=== PATIENT | male | born 1950 | race Caucasian/White ===

== ENCOUNTER → 2019-09-01 00:01 | Outpatient (RCR) | payer OTHER, SELFPAY | LOC: WOUND 08-04 08:59 | PROVIDERS: Family Provider Internal Medicine; Visit Provider Thoracic Surgery (Cardiothoracic Vascular Surgery) | DX: T81.31XA Disruption of external operation (surgical) wound, not elsewhere classified, initial encounter (principal); Y83.8 Other surgical procedures as the cause of abnormal reaction of the patient, or of later complication, without mention of misadventure at the time of the procedure | CPT/HCPCS: 11042 ×5 ==

== ENCOUNTER 2019-09-03 13:25 | Outpatient (CLI) | payer OTHER, SELFPAY | END 2019-09-03 13:26 | disposition home or self-care (01) | LOC: RAD 13:26 | PROVIDERS: Family Provider Internal Medicine; PCP Internal Medicine; Visit Provider Internal Medicine Nephrology | DX: N18.3 Chronic kidney disease, stage 3 (moderate) (principal); N28.1 Cyst of kidney, acquired ==

== ENCOUNTER 2019-09-03 13:35 | Outpatient (CLI) | payer OTHER, SELFPAY ==
--- NOTE | 2019-09-03 | US_ITS ---
WS: [id number] ULTRASOUND RENAL TECHNIQUE: Ultrasound examination of both kidneys. CLINICAL INFORMATION: CKD3 COMPARISON: None. FINDINGS: RIGHT: Right kidney is normal in size and appearance. Echogenicity: Normal. Cortical thickness: 1.1 cm; Normal. Hydronephrosis: None. Perinephric fluid: None. Right kidney measures: 12.0 cm x 5.2 cm x 5.4 cm. LEFT: Left kidney is normal in size and appearance. Echogenicity: Normal. Cortical thickness: 1.5 cm; Normal. Hydronephrosis: None. Perinephric fluid: None. Left kidney measures: 12.7 cm x 5.3 cm x 7.0 cm. Left renal cyst measuring 1.5 cm. Normal visualized aorta. Mild bladder wall thickening can be seen with chronic cystitis or bladder ou tlet obstruction. US/US renal BI* [id number] IMPRESSION: 1. No hydronephrosis in either kidney. 2. Mild bladder wall thickening. 3. Left renal cyst 1.5 cm
--- NOTE | 2019-09-03 | XR_ITS ---
WS: [id number] Sternum, 2 views, 09/03/2019 Clinical Data: PAIN REDNESS Comparison: PA and lateral chest, 06/04/2019. Findings: Midline sternotomy sutures are seen. The most inferior sternal suture has broken. No bone destruction or erosion is seen of the sternum. The sternoclavicular joints appear to be intact. XR/XR sternum min 2V [id number] Impression: 1. Midline sternotomy sutures are intact except the most inferior one has broke n. 2. The sternum shows no erosion or destruction.
== END 2019-09-03 13:36 | disposition home or self-care (01) ==
LOC: RAD 13:36
PROVIDERS: Family Provider Internal Medicine; PCP Internal Medicine; Visit Provider Thoracic Surgery (Cardiothoracic Vascular Surgery)
DX: N18.3 Chronic kidney disease, stage 3 (moderate) (principal); N28.1 Cyst of kidney, acquired
CPT/HCPCS: 71120; 76770

== ENCOUNTER 2019-09-15 14:10 | Outpatient (RCR) | payer OTHER, SELFPAY | END 2019-10-02 23:59 | disposition home or self-care (01) | LOC: WOUND 14:10 | PROVIDERS: Family Provider Internal Medicine; PCP Internal Medicine; Visit Provider Thoracic Surgery (Cardiothoracic Vascular Surgery) | DX: T81.31XA Disruption of external operation (surgical) wound, not elsewhere classified, initial encounter (principal); Y83.8 Other surgical procedures as the cause of abnormal reaction of the patient, or of later complication, without mention of misadventure at the time of the procedure | CPT/HCPCS: 11042; 99212 ==

== ENCOUNTER 2019-10-05 20:51 | Emergency (ER) | payer OTHER, SELFPAY ==
--- NOTE | 2019-10-05 20:55 | ED_ITS ---
Entered by Radha Miller, acting as scribe for Topher Cook DO Oct 05, 2019 20:51 Documented by User: Marlyn Bansal MD 10/06/19 01:22 HPI - Chest Pain General: Chief Complaint: Chest Pain Stated Complaint: CHEST PAIN Time Seen by Provider: 10/05/19 20:55 PFS ED PFSH: Statuses (acute, chronic, etc) shown below reflect problem list status as previously entered and may not be historically accurate Social History Smoking and tobacco status: former smoker Course Vital Signs: Vital signs: Vital Signs Temperature 99.0 F 10/05/19 21:00 Pulse Rate 57 L 10/06/19 01:30 Respiratory Rate 18 10/06/19 01:30 Blood Pressure 128/74 10/06/19 01:30 Pulse Oximetry 98 10/06/19 01:30 MDM - Chest Pain MDM Narrative: Medical decision making narrative: Patient presents here with chest pain that is atypical in nature. Patient also had tachycardia. He feels much improved here and is requesting discharge. His delta was slightly elevated at 12 but I believe is due to his tachycardia. Patient does not want to stay for 6-hour troponin I tried to talk him into it. He states he feels fine and will follow up with his primary care doctor and return if worsening. I feel he is stable for discharge at this time. Lab Data: Labs: Lab Results 10/05/19 10/05/19 10/05/19 Range/Units 21:07 21:07 21:07 WBC 7.7 (4.0-10.0) 10^3/ uL RBC 4.41 (4.1-5.3) 10^6/u L Hgb 13.0 (11.7-16.6) g/dL Hct 40.2 L (42.0-52.0) % MCV 91.2 (80-94) fL MCH 29.5 (28.0-34.0) pg MCHC 32.3 (30.0-36.0) g/dL RDW 14.5 (12.1-15.1) % Plt Count 177 (130-400) 10^3/c mm MPV 11.2 H (7.4-10.4) fL Neut % (Auto) 47.1 % Lymph % (Auto) 35.6 % [place] % (Auto) 11.8 % Eos % (Auto) 4.2 % Baso % (Auto) 0.9 % Neut # (Auto) 3.6 (1.8-7.7) 10^3/u L Lymph # (Auto) 2.7 (0.8-4.8) 10^3/u L [place] # (Auto) 0.9 (0.2-0.9) 10^3/u L Eos # (Auto) 0.3 (0.0-0.8) 10^3/u L Baso # (Auto) 0.1 (0.0-0.1) 10^3/u L Nucleated RBC % (a uto) 0 % Nucleated RBCs # 0.0 /100WBC PT (10.5-13.3) SECO NDS INR (0.8-1.2) Sodium 132 L (136-145) mmol/L Potassium 4.6 (3.5-5.1) mmol/L Chloride 96 L (98-107) mmol/L Carbon Dioxide 24 (22-29) mmol/L Anion Gap 16.6 (5-19) BUN 44 H (8-23) mg/dL Creatinine 1.6 H (0.7-1.2) mg/dL Glucose 278 H (74-106) mg/dL Calcium 9.3 (8.5-10.5) mg/dL Total Bilirubin 0.4 (0.15-1.2) mg/dL AST 29 (0-40) U/L ALT 53 H (0-41) U/L Alkaline Phosphata se 133 H (40-130) IU/L Troponin T Baselin e 53 H (0-15) ng/mL Troponin T 120 Min north fork (0-15) ng/mL Delta Troponin T (0-10) ABS# Total Protein 8.3 (6.6-8.7) g/dL Albumin 4.8 (3.5-5.2) g/dL Globulin 3.5 (1.3-4.6) g/dL 10/05/19 10/05/19 Range/Units 21:07 22:54 WBC (4.0-10.0) 10^3/ uL RBC (4.1-5.3) 10^6/u L Hgb (11.7-16.6) g/dL Hct (42.0-52.0) % MCV (80-94) fL MCH (28.0-34.0) pg MCHC (30.0-36.0) g/dL RDW (12.1-15.1) % Plt Count (130-400) 10^3/c mm MPV (7.4-10.4) fL Neut % (Auto) % Lymph % (Auto) % [place] % (Auto) % Eos % (Auto) % Baso % (Auto) % Neut # (Auto) (1.8-7.7) 10^3/u L Lymph # (Auto) (0.8-4.8) 10^3/u L [place] # (Auto) (0.2-0.9) 10^3/u L Eos # (Auto) (0.0-0.8) 10^3/u L Baso # (Auto) (0.0-0.1) 10^3/u L Nucleated RBC % (a uto) % Nucleated RBCs # /100WBC PT 14.90 H (10.5-13.3) SECO NDS INR 1.13 (0.8-1.2) Sodium (136-145) mmol/L Potassium (3.5-5.1) mmol/L Chloride (98-107) mmol/L Carbon Dioxide (22-29) mmol/L Anion Gap (5-19) BUN (8-23) mg/dL Creatinine (0.7-1.2) mg/dL Glucose (74-106) mg/dL Calcium (8.5-10.5) mg/dL Total Bilirubin (0.15-1.2) mg/dL AST (0-40) U/L ALT (0-41) U/L Alkaline Phosphata se (40-130) IU/L Troponin T Baselin e (0-15) ng/mL Troponin T 120 Min north [place] 67.81 H (0-15) ng/mL Delta Troponin T 14.81 H* (0-10) ABS# Total Protein (6.6-8.7) g/dL Albumin (3.5-5.2) g/dL Globulin (1.3-4.6) g/dL Imaging Data^: CXR: My impression: no acute abnormality EKG Data^: EKG 1: Attestation: I personally reviewed and interpreted this EKG as follows: EKG interpretation date: 10/06/19 EKG interpretation time: 22:43 Interpretation: nsr hr [address] or t wave abnormalities qrs 93 qtc 434 Discharge Plan Discharge Patient Disposition: Home, Self-Care Clinical Impression: Chest pain Condition: Stable Discharge Orders: Discharge Order (Routine); Ordered 10/06/19 Ordered By: Marlyn Bansal Referrals: Fredy Ferrer [Primary Care Provider] - Discharge Diet: Advance as tolerated Discharge Activity: Resume usual activity Patient Instructions: Chest Pain (ED) Discharge Date/Time: 10/06/19 01:32 Coding Level of Care Code ED Guest Relations Agent for Chg Fwd Exam Problem Focused Documented by User: Topher Cook DO 10/07/19 13:15 HPI - Chest Pain General: Chief Complaint: Chest Pain Stated Complaint: CHEST PAIN Time Seen by Provider: 10/05/19 20:55 Source: patient Mode of arrival: ambulatory History of Present Illness: HPI narrative: 69 y/o male presents to the ED with complaint of chest tightness and rapid HR that started about an hr ago. Pt states he had a double bypass sx last year. Pt has hx of Afib. MD complaint: chest heaviness (tightness) Pertinent past history: CABG Onset (ago): hour(s) (1) Timing of current episode: episodic Prior episodes: Yes Onset: during rest (laying down) Severity: similar to previous episodes Quality: tightness Relieving factors: nothing Associated symptoms: Reports palpitations (elevated HR 188); Deny abdominal pain, dyspnea, fever(s), nausea, syncope or vomiting Review of Systems Const: Denies: fever, chills, body aches, fatigue, malaise or night sweats Eyes: Denies: change in vision or blurry vision ENMT: Denies: throat pain, oral sores/lesions, dental pain, nasal discharge or nasal congestion Card: Reports: chest pain (tightness) and palpitations (elevated HR 188); Denies: edema, swelling of feet/ankles, syncope or leg pain with exertion Resp: Denies: shortness of breath, productive cough, non-productive cough or wheezing GI: Denies: abdominal pain, nausea, vomiting, vomiting blood, coffee grounds in vomit, difficulty swallowing, heartburn/indigestion, diarrhea, constipation, cramping, blood in stool or black tarry stool : Denies: flank pain, difficulty urinating, painful urination, urinary frequency, urinary urgency, urinary incontinence or blood in urine Musc: Denies: neck pain, back pain, extremity pain, extremity swelling, joint pain or joint swelling Skin/Breast: Denies: rash, itching or redness Neuro: Denies: headache, numbness in extremities, weakness in extremities, changes in sensation, lack of coordination, difficulty walking, frequent falls, dizziness, vertigo or confusion Psych: Denies: anxiety, depression, loss of interest, visual hallucinations, auditory hallucinations, suicidal ideation or homicidal ideation Endo: Denies: excessive urination, excessive thirst, tired all the time or cold intolerance [place]/Lymph: Denies: easy bruising, easy bleeding, petechiae, enlarged lymph nodes or tender lymph nodes PFSH ED PFSH: Statuses (acute, chronic, etc) shown below reflect problem list status as previously entered and may not be historically accurate Social History Smoking and tobacco status: former smoker Physical Exam Const: COMMON NORMALS: oriented x3 and alert GENERAL APPEARANCE: cooperative, well kempt and well developed NUTRITIONAL APPEARANCE: obese ORIENTATION/CONSCIOUSNESS: Yes awake, Yes oriented to person and Yes oriented to place HENMT: COMMON NORMALS: normocephalic, head/scalp atraumatic, external ears normal, EAC's normal, TM's normal bilaterally, external nose normal, moist oral mucous membranes and oropharynx normal HEAD & SCALP: normocephalic and atraumatic NOSE: external nose normal EXTERNAL EAR: Yes external ears normal EXTERNAL AUDITORY CANAL: EAC's normal TYMPANIC MEMBRANE: TM's normal bilaterally MOUTH: oral and palatal mucosa normal, lip normal and tongue normal THROAT: posterior oropharynx normal and tonsils normal Eye: COMMON NORMALS: PERRL, EOMs intact bilaterally, conjunctivae normal and no scleral icterus CONJUNCTIVA: Yes conjunctivae normal PUPIL: Yes PERRL Neck/C-Spine: COMMON NORMALS: full ROM, no lymphadenopathy, supple, no meningeal signs and thyroid normal THYROID: thyroid normal and asymmetrical Lymph: LYMPHATIC: no lymphadenopathy noted Resp: COMMON NORMALS: normal respiratory effort, no retractions, no use of accessory muscles and clear to auscultation bilaterally AUSCULTATION: clear to auscultation bilaterally Cardio: RATE: tachycardic (185-190) HEART SOUNDS: no murmurs GI: COMMON NORMALS: normal to inspection, nondistended, normoactive bowel sounds, soft to palpation and no hepatosplenomegaly AUSCULTATION: Yes normoactive bowel sounds PALPATION: Yes soft and Yes no hepatosplenomegaly : COMMON NORMALS: Yes no CVA tenderness BLADDER/KIDNEY EXAM: Yes no CVA tenderness Back/Pelvis: COMMON NORMALS: no CVA tenderness LUMBAR SPINE/LOWER BACK: Yes normal to inspection Extremity: COMMON NORMALS: no clubbing, cyanosis or edema, no calf tenderness and no pedal edema Neuro: COMMON NORMALS: oriented x3 SENSORIUM/ORIENTATION: Yes alert, Yes oriented to person and Yes oriented to place MENINGEAL SIGNS: Yes no meningeal signs Psych: APPEARANCE: Yes well kempt Skin: COMMON NORMALS: no rashes or lesions noted and skin turgor normal GENERAL SKIN EXAM: no rashes or lesions noted and turgor normal Course Vital Signs: Vital signs: Vital Signs Temperature 99.0 F 10/05/19 21:00 Pulse Rate 57 L 10/06/19 01:30 Respiratory Rate 18 10/06/19 01:30 Blood Pressure 128/74 10/06/19 01:30 Pulse Oximetry 98 10/06/19 01:30 MDM - Chest Pain Lab Data: Labs: Lab Results 10/05/19 10/05/19 10/05/19 Range/Units 21:07 21:07 21:07 WBC 7.7 (4.0-10.0) 10^3/ uL RBC 4.41 (4.1-5.3) 10^6/u L Hgb 13.0 (11.7-16.6) g/dL Hct 40.2 L (42.0-52.0) % MCV 91.2 (80-94) fL MCH 29.5 (28.0-34.0) pg MCHC 32.3 (30.0-36.0) g/dL RDW 14.5 (12.1-15.1) % Plt Count 177 (130-400) 10^3/c mm MPV 11.2 H (7.4-10.4) fL Neut % (Auto) 47.1 % Lymph % (Auto) 35.6 % [place] % (Auto) 11.8 % Eos % (Auto) 4.2 % Baso % (Auto) 0.9 % Neut # (Auto) 3.6 (1.8-7.7) 10^3/u L Lymph # (Auto) 2.7 (0.8-4.8) 10^3/u L [place] # (Auto) 0.9 (0.2-0.9) 10^3/u L Eos # (Auto) 0.3 (0.0-0.8) 10^3/u L Baso # (Auto) 0.1 (0.0-0.1) 10^3/u L Nucleated RBC % (a uto) 0 % Nucleated RBCs # 0.0 /100WBC PT (10.5-13.3) SECO NDS INR (0.8-1.2) Sodium 132 L (136-145) mmol/L Potassium 4.6 (3.5-5.1) mmol/L Chloride 96 L (98-107) mmol/L Carbon Dioxide 24 (22-29) mmol/L Anion Gap 16.6 (5-19) BUN 44 H (8-23) mg/dL Creatinine 1.6 H (0.7-1.2) mg/dL Glucose 278 H (74-106) mg/dL Calcium 9.3 (8.5-10.5) mg/dL Total Bilirubin 0.4 (0.15-1.2) mg/dL AST 29 (0-40) U/L ALT 53 H (0-41) U/L Alkaline Phosphata se 133 H (40-130) IU/L Troponin T Baselin e 53 H (0-15) ng/mL Troponin T 120 Min north [place] (0-15) ng/mL Delta Troponin T (0-10) ABS# Total Protein 8.3 (6.6-8.7) g/dL Albumin 4.8 (3.5-5.2) g/dL Globulin 3.5 (1.3-4.6) g/dL 10/05/19 10/05/19 Range/Units 21:07 22:54 WBC (4.0-10.0) 10^3/ uL RBC (4.1-5.3) 10^6/u L Hgb (11.7-16.6) g/dL Hct (42.0-52.0) % MCV (80-94) fL MCH (28.0-34.0) pg MCHC (30.0-36.0) g/dL RDW (12.1-15.1) % Plt Count (130-400) 10^3/c mm MPV (7.4-10.4) fL Neut % (Auto) % Lymph % (Auto) % [place] % (Auto) % Eos % (Auto) % Baso % (Auto) % Neut # (Auto) (1.8-7.7) 10^3/u L Lymph # (Auto) (0.8-4.8) 10^3/u L [place] # (Auto) (0.2-0.9) 10^3/u L Eos # (Auto) (0.0-0.8) 10^3/u L Baso # (Auto) (0.0-0.1) 10^3/u L Nucleated RBC % (a uto) % Nucleated RBCs # /100WBC PT 14.90 H (10.5-13.3) SECO NDS INR 1.13 (0.8-1.2) Sodium (136-145) mmol/L Potassium (3.5-5.1) mmol/L Chloride (98-107) mmol/L Carbon Dioxide (22-29) mmol/L Anion Gap (5-19) BUN (8-23) mg/dL Creatinine (0.7-1.2) mg/dL Glucose (74-106) mg/dL Calcium (8.5-10.5) mg/dL Total Bilirubin (0.15-1.2) mg/dL AST (0-40) U/L ALT (0-41) U/L Alkaline Phosphata se (40-130) IU/L Troponin T Baselin e (0-15) ng/mL Troponin T 120 Min [place] 67.81 H (0-15) ng/mL Delta Troponin T 14.81 H* (0-10) ABS# Total Protein (6.6-8.7) g/dL Albumin (3.5-5.2) g/dL Globulin (1.3-4.6) g/dL Discharge Plan Discharge Patient Disposition: Home, Self-Care Clinical Impression: Chest pain Condition: Stable Discharge Orders: Discharge Order (Routine); Ordered 10/06/19 Ordered By: Marlyn Bansal Referrals: Fredy Ferrer [Primary Care Provider] - Discharge Diet: Advance as tolerated Discharge Activity: Resume usual activity Patient Instructions: Chest Pain (ED) Discharge Date/Time: 10/06/19 01:32 Coding Level of Care Code ED Guest Relations Agent for Zechariah Fwbhanu Exam Problem Focused The documentation recorded by the Paul womack Ashley, accurately reflects the service I personally performed and the decisions made by Joey murphy Curtis L, DO Oct 05, 2019 20:51
[2019-10-05 21:00] VITALS: BP 121/79; PULSE 190; RESP 16; TEMP 37.2; O2SAT 97; BMI 31.5
--- NOTE | 2019-10-05 21:01 | XR_ITS ---
WS: [id number] CHEST XRAY TECHNIQUE: Portable chest. CLINICAL INFORMATION: chest pain COMPARISON: September 03, 2019 FINDINGS: Sternotomy. Surgical clips at the thoracic inlet. Heart: Cardiomegaly. Lungs: Lungs are clear. No consolidation or pleural effusion. Bones: Normal visualized bony structures. XR/XR chest 1V portable [id number] IMPRESSION: No acute chest findings
--- NOTE | 2019-10-05 21:01 | ECG_ITS ---
Measurements Intervals [place] Rate: 62 P: 60 IN: 169 QRS: 32 QRSD: 93 T: 45 QT: 427 QTc: 434 SINUS RHYTHM WITH OCCASIONAL VENTRICULAR PREMATURE COMPLEXES LOW QRS VOLTAGE IN PRECORDIAL LEADS [QRS DEFLECTION < 1.0 mV IN CHEST LEADS] INCOMPLETE RIGHT BUNDLE BRANCH BLOCK [90+ ms QRS DURATION, TERMINAL R IN V1/V2, 40+ ms S IN I/aVL/V4/V5/V6] POSSIBLE ANTERIOR MYOCARDIAL INFARCTION [30 ms Q WAVE IN V3/V4, OR R < 0.2 mV I V4], OF INDETERMINATE AGE PROBABLE INFERIOR MYOCARDIAL INFARCTION [35 ms Q WAVE IN II/aVF], PROBABLY OLD Compared to ECG 05/15/2019 15:58:44 Ventricular premature complex(es) now present Incomplete right bundle-branch block now present Myocardial infarct finding now present Atrial flutter no longer present Electronically Signed On 10-06-2019 20:12:59 [employer] by Beltran Gay M.D. [email or web address]
[2019-10-05 21:48] LABS: Basophils # 0.1 10^3/uL (0.0-0.1); Basophils % 0.9 %; Eosinophils # 0.3 10^3/uL (0.0-0.8); Eosinophils % 4.2 %; Hematocrit 40.2 % (42.0-52.0); Lymphocytes # 2.7 10^3/uL (0.8-4.8); Lymphocytes % 35.6 %; Mean Corpuscular HGB Conc 32.3 g/dL (30.0-36.0); Mean Corpuscular Hemoglobin 29.5 pg (28.0-34.0); Mean Corpuscular Volume 91.2 fL (80-94); Mean Platelet Volume 11.2 fL (7.4-10.4); Monocytes # 0.9 10^3/uL (0.2-0.9); Monocytes % 11.8 %; Neutrophils # 3.6 10^3/uL (1.8-7.7); Neutrophils % 47.1 %; Nucleated Red Blood Cells % 0 %; Platelet Count 177 10^3/cmm (130-400); Red Blood Count 4.41 10^6/uL (4.1-5.3); Red Cell Distribution Width 14.5 % (12.1-15.1); White Blood Count 7.7 10^3/uL (4.0-10.0)
[2019-10-05 21:54] LABS: INR 1.13 (0.8-1.2)
[2019-10-05 22:00] LABS: Alanine Aminotransferase 53 U/L (0-41); Albumin Level 4.8 g/dL (3.5-5.2); Alkaline Phosphatase 133 IU/L (40-130); Anion Gap 16.6 (5-19); Aspartate Amino Transferase 29 U/L (0-40); Blood Urea Nitrogen 44 mg/dL (8-23); Calcium 9.3 mg/dL (8.5-10.5); Carbon Dioxide 24 mmol/L (22-29); Chloride 96 mmol/L (98-107); Globulin 3.5 g/dL (1.3-4.6); Glucose 278 mg/dL (74-106); Potassium 4.6 mmol/L (3.5-5.1); Sodium 132 mmol/L (136-145); Total Bilirubin 0.4 mg/dL (0.15-1.2); Total Protein 8.3 g/dL (6.6-8.7)
[2019-10-05 22:03] LABS: Troponin(5th) Baseline 53 ng/mL (0-15)
[2019-10-05 23:57] LABS: Troponin 5 2HR 67.81 ng/mL (0-15)
[2019-10-06 00:08] LABS: Troponin 5 2HR Delta 14.81 ABS# (0-10)
[2019-10-06 01:30] VITALS: BP 128/74; PULSE 57; RESP 18; O2SAT 98
== END 2019-10-06 01:32 | disposition home or self-care (01) ==
PROVIDERS: Family Medicine; Emergency Provider Emergency Medicine; Family Provider Internal Medicine; PCP Internal Medicine
DX: R07.89 Other chest pain (principal); I48.91 Unspecified atrial fibrillation; Z87.891 Personal history of nicotine dependence; Z95.1 Presence of aortocoronary bypass graft
CPT/HCPCS: 36415; 71045; 80053; 84484; 85025; 85610; 93005; 99283

== ENCOUNTER 2019-10-07 09:58 | Outpatient (CLI) | payer OTHER, SELFPAY ==
[2019-10-07 10:35] LABS: Albumin Level 4.6 g/dL (3.5-5.2); Anion Gap 14.2 (5-19); Blood Urea Nitrogen 40 mg/dL (8-23); Calcium 9.3 mg/dL (8.5-10.5); Carbon Dioxide 26 mmol/L (22-29); Chloride 100 mmol/L (98-107); Glucose 105 mg/dL (65-115); Phosphorus 3.9 mg/dL (2.5-4.5); Potassium 5.2 mmol/L (3.5-5.1); Sodium 135 mmol/L (136-145)
[2019-10-07 10:42] LABS: Basophils # 0.1 10^3/uL (0.0-0.1); Basophils % 0.6 %; Eosinophils # 0.3 10^3/uL (0.0-0.8); Eosinophils % 3.2 %; Hematocrit 36.8 % (42.0-52.0); Hemoglobin 11.8 g/dL (11.7-16.6); Lymphocytes # 1.9 10^3/uL (0.8-4.8); Lymphocytes % 24.4 %; Mean Corpuscular HGB Conc 32.1 g/dL (30.0-36.0); Mean Corpuscular Hemoglobin 29.4 pg (28.0-34.0); Mean Corpuscular Volume 91.5 fL (80-94); Monocytes # 0.8 10^3/uL (0.2-0.9); Monocytes % 9.6 %; Neutrophils # 4.8 10^3/uL (1.8-7.7); Neutrophils % 61.6 %; Nucleated Red Blood Cells % 0 %; Platelet Count 174 10^3/cmm (130-400); Red Blood Count 4.02 10^6/uL (4.1-5.3); Red Cell Distribution Width 14.6 % (12.1-15.1); White Blood Count 7.8 10^3/uL (4.0-10.0)
[2019-10-07 11:20] LABS: Creatinine Urine, Random 41 mg/dL (39-259); Microalbumin Random Urine 4 ug/dL (0-20)
[2019-10-07 11:32] LABS: Microalbum Creatinine Ratio Ur 98 mg/dL (0-20)
== END 2019-10-07 09:59 | disposition home or self-care (01) ==
LOC: LAB 10:03
PROVIDERS: Family Provider Internal Medicine; PCP Internal Medicine; Visit Provider Internal Medicine Nephrology
DX: N18.3 Chronic kidney disease, stage 3 (moderate) (principal)
CPT/HCPCS: 36415; 80069; 82044; 85025

== ENCOUNTER → 2019-10-14 09:23 | Outpatient (BNVA) | payer OTHER, SELFPAY | PROVIDERS: Family Provider Internal Medicine; PCP Internal Medicine; Visit Provider Otolaryngology | DX: E04.1 Nontoxic single thyroid nodule (principal) | CPT/HCPCS: 99203; 99214 ==

== ENCOUNTER 2020-02-05 08:45 | Outpatient (CLI) | payer OTHER, SELFPAY ==
[2020-02-05 09:28] LABS: Basophils # 0.1 10^3/uL (0.0-0.1); Basophils % 0.8 %; Eosinophils # 0.2 10^3/uL (0.0-0.8); Eosinophils % 3.4 %; Hematocrit 40.5 % (42.0-52.0); Hemoglobin 13.3 g/dL (11.7-16.6); Lymphocytes # 1.6 10^3/uL (0.8-4.8); Lymphocytes % 23.2 %; Mean Corpuscular HGB Conc 32.8 g/dL (30.0-36.0); Mean Corpuscular Hemoglobin 30.1 pg (28.0-34.0); Mean Corpuscular Volume 91.6 fL (80-94); Mean Platelet Volume 11.3 fL (7.4-10.4); Monocytes # 0.6 10^3/uL (0.2-0.9); Monocytes % 8.8 %; Neutrophils # 4.5 10^3/uL (1.8-7.7); Neutrophils % 63.5 %; Nucleated Red Blood Cells % 0 %; Platelet Count 146 10^3/cmm (130-400); Red Blood Count 4.42 10^6/uL (4.1-5.3); Red Cell Distribution Width 12.6 % (12.1-15.1); White Blood Count 7.1 10^3/uL (4.0-10.0)
[2020-02-05 09:40] LABS: Albumin Level 4.4 g/dL (3.5-5.2); Anion Gap 15.5 (5-19); Blood Urea Nitrogen 20 mg/dL (8-23); Calcium 8.9 mg/dL (8.5-10.5); Carbon Dioxide 28 mmol/L (22-29); Chloride 97 mmol/L (98-107); Glucose 296 mg/dL (65-115); Phosphorus 3.5 mg/dL (2.5-4.5); Potassium 4.5 mmol/L (3.5-5.1); Sodium 136 mmol/L (136-145)
[2020-02-05 09:42] LABS: Creatinine Urine, Random 146 mg/dL (39-259)
[2020-02-05 10:00] LABS: Microalbum Creatinine Ratio Ur 425 mg/dL (0-20); Microalbumin Random Urine 62 ug/dL (0-20)
== END 2020-02-05 08:46 | disposition home or self-care (01) ==
PROVIDERS: Family Provider Internal Medicine; PCP Internal Medicine; Visit Provider Internal Medicine Nephrology
DX: N18.3 Chronic kidney disease, stage 3 (moderate) (principal)
CPT/HCPCS: 36415; 80069; 82044; 85025

== ENCOUNTER 2021-05-17 16:28 | Emergency (ER) | payer OTHER, MEDICARE, SELFPAY ==
[2021-05-17 17:10] VITALS: BP 161/78; PULSE 68; RESP 20; TEMP 36.9; O2SAT 96; BMI 32.5
[2021-05-17 17:23] LABS: Glucose Point of Care 257 mg/dL (70-110)
== END 2021-05-17 17:19 | disposition left against medical advice (07) ==
PROVIDERS: Emergency Provider Family Medicine; PCP Family Medicine
DX: Z53.21 Procedure and treatment not carried out due to patient leaving prior to being seen by health care provider (principal)
CPT/HCPCS: 36416; 82962

== ENCOUNTER 2022-07-20 13:50 | Inpatient (IN) | payer OTHER, SELFPAY ==
[2022-07-20] VITALS (23 sets, daily range): BP systolic 91–180; BP diastolic 63–103; PULSE 88–170; RESP 7–29; TEMP 36.2–36.6; O2SAT 90–99; BMI 32.3
--- NOTE | 2022-07-20 14:00 | ED_ITS ---
HPI - SOB/Dyspnea General: Chief Complaint: Shortness of Breath/Dyspnea Stated Complaint: SOB, congestion Time Seen by Provider: 07/20/22 14:00 History of Present Illness: HPI Narrative: Mr. Baker is a 72-year-old gentleman with significant past medical history of chronic atrial fibrillation, hypertension, history of CABG presented to the emergency department due to shortness of breath with chest discomfort. He reports upper respiratory symptoms including cough proximately 3 days ago and subsequently has had worsening symptoms including generalized malaise and fatigue. Noted palpitations and racing heart today. Reports compliance with medication regiment. Intensity symptoms at this moderate to severe. Course has worsened. No other specific changes in health, exacerbating, or alleviating factors identified. Onset (ago): day(s) Context: recent illness Timing: constant Severity: moderate Exacerbating factors: exertion and coughing Known history of: other Review of Systems General: Reports: 10 or more systems reviewed and unremarkable except in HPI and below PFSH ED PFSH: Medical History (Updated 08/01/22 @ 23:08 by Aldo Jenkins MD) Chronic atrial fibrillation Essential hypertension Surgical History Hx of CABG Family History Other Family history of premature coronary artery disease Stroke Social History Smoking and tobacco status: former smoker Physical Exam Const: COMMON NORMALS: alert GENERAL APPEARANCE: cooperative, well developed and ill appearing (Somewhat) HENMT: COMMON NORMALS: normocephalic and atraumatic HEAD & SCALP: normocep halic and atraumatic Eye: COMMON NORMALS: conjunctivae normal CONJUNCTIVA: Yes conjunctivae normal SCLERA: sclerae normal Neck/C-Spine: COMMON NORMALS: supple GENERAL: Yes trachea midline Resp: EFFORT & INSPECTION: Yes able to speak in complete sentences and Yes tachypneic AUSCULTATION: diminished lung sounds Cardio: RATE: tachycardic RHYTHM: abnormal rhythm GI: COMMON NORMALS: Soft to palpation PALPATION: Yes Soft to palpation and No Tenderness to palpation present (GI) PERCUSSION: normal to percussion Extremity: GENERAL: Yes normal exam except as noted and No edema Neuro: COMMON NORMALS: moves all extremities SENSORIUM/ORIENTATION: Yes alert and No Orientation impaired Psych: COMMON NORMALS: mental status grossly normal and Normal thought process present THOUGHT PROCESS: Normal thought process present Course Vital Signs: Vital signs: Vital Signs Temperature 97.4 F L 07/23/22 12:42 Pulse Rate 60 07/23/22 12:39 Respiratory Rate 18 07/23/22 12:39 Blood Pressure 124/74 07/23/22 12:39 Pulse Oximetry 93 07/23/22 12:39 Oxygen Delivery Me thod 07/23/22 12:39 MDM - SOB/Dyspnea Medical Decision Making 72-year-old gentleman presenting with shortness of breath and associated symptoms. Exam as above. EKG notable for atrial fibrillation with rapid ventricular response. Labs notable for minimal leukocytosis, hemoglobin normal. Metabolic panel with evidence of electrolyte abnormality including dehydration and FABI. Lactic acid is elevated. Initial troponin significantly elevated with -2-hour delta troponin. BNP mildly elevated. COVID pending X-ray with abnormality concerning for small pneumothorax. Further evaluation is warranted with CT. CT with no evidence of pneumothorax or other acute pathology. During ED course patient given fluid bolus given clinical history without significant improvement in heart rate, subsequently ministered diltiazem with only modest improvement and digoxin. Most likely cause of patient symptoms is multifactorial including recent illness with dehydration and atrial fibrillation with rapid ventricular response that is somewhat resistant to treatment. At the request of hospitalist diltiazem and switch to amiodarone. The results of ED evaluation were discussed with the patient including plan for admission due to requirement for level of care not available if discharged to prevent significant worsening/deterioration. Patient agreeable with plan. Discussed with hospitalist service who was agreeable to admit patient. Medical Records I reviewed the patient's medical records. Lab Data I reviewed the patient's lab results. 07/20/22 14:15 07/20/22 14:15 Labs/Radiology: Radiology Impressions Chest X-Ray 07/20/22 14:14 IMPRESSION: 1. Findings suspicious for very small pneumothorax of the left lower lobe estimated at 5% or slightly less. There is also pleural effusion bordering the left lung. 2. Areas of plaque atelectasis in the mid and lower left lung. Chest CT 07/20/22 15:02 IMPRESSION: No evidence for a pneumothorax. There are nodules in the right middle and left upper lobes of the lung which appear new when compared with 05/15/2019.For patients at low risk (minimal or absent history of smoking and of other known risk factors), recommend CT Chest at 3-6 months, then consider CT Chest at 18-24 months. For patients at high risk (history of smoking or of other known risk factors), recommend CT Chest at 3-6 months, then CT Chest at 18-24 months. (Reference: Maricruz) References: Maricruz Hagan et al. Guidelines for Management of Incidental Pulmonary Nodules Detected on CT Images: From the Fleischner Society 2017. Radiology. 2017;284(1):228-243. COMMENTS: 1. Consistent with the [employer]'s Incidental Findings Committee white paper (J Am Alis Radiol 2018): Any incidental renal lesion less than 1 cm or classified as too small to characterize, or any incidental cystic renal lesion characterized as simple-appearing, is likely benign. No follow-up imaging is recommended for these lesions per consensus recommendations based on imaging criteria. 2. Consistent with the [employer]'s Incidental Findings Committee white paper (J Am Alis Radiol 2015): In patients aged 35 years and older with an incidental thyroid nodule equal to or greater than 1.[address], MRI or extrathyroidal US, further evaluation with dedicated thyroid US is recommended for patients with normal life expectancy and without comorbidities. For smaller nodules without suspicious features, no further evaluation or follow up is recommended. Laboratory Results WBC 11.4 10^3/uL (4.0-10.0) H 07/20/22 14:15 RBC 5.02 10^6/uL (4.1-5.3) 07/20/22 14:15 Hgb 14.9 g/dL (11.7-16.6) 07/20/22 14:15 Hct 45.0 % (42.0-52.0) 07/20/22 14:15 MCV 89.6 fl (80-94) 07/20/22 14:15 MCH 29.7 pg (28.0-34.0) 07/20/22 14:15 MCHC 33.1 g/dL (30.0-36.0) 07/20/22 14:15 RDW 12.6 % (12.1-15.1) 07/20/22 14:15 Plt Count 169 10^3/cmm (130-400) 07/20/22 14:15 MPV 10.4 fL (7.4-10.4) 07/20/22 14:15 Neut % (Auto) 83.1 % 07/20/22 14:15 Lymph % (Auto) 7.2 % 07/20/22 14:15 [place] % (Auto) 9.2 % 07/20/22 14:15 Eos % (Auto) 0.0 % 07/20/22 14:15 Baso % (Auto) 0.2 % 07/20/22 14:15 Neut # (Auto) 9.51 10^3/uL (1.8-7.7) H 07/20/22 14:15 Lymph # (Auto) 0.8 10^3/uL (0.8-4.8) 07/20/22 14:15 [place] # (Auto) 1.1 10^3/uL (0.2-0.9) H 07/20/22 14:15 Eos # (Auto) 0.0 10^3/uL (0.0-0.8) 07/20/22 14:15 Baso # (Auto) 0.0 10^3/uL (0.0-0.1) 07/20/22 14:15 Nucleated RBC % (auto) 0 % 07/20/22 14:15 Nucleated RBCs # 0.0 /100WBC 07/20/22 14:15 Sodium 128 mmol/L (136-145) L 07/20/22 14:15 Potassium 4.2 mmol/L (3.5-5.1) 07/20/22 14:15 Chloride 88 mmol/L (98-107) L 07/20/22 14:15 Carbon Dioxide 20 mmol/L (22-29) L 07/20/22 14:15 Anion Gap 24.2 (5-19) H 07/20/22 14:15 BUN 30 mg/dL (8-23) H 07/20/22 14:15 Creatinine 1.8 mg/dL (0.7-1.2) H 07/20/22 14:15 GFR Calculation Not Reportable 07/20/22 14:15 Glucose 195 mg/dL (65-115) H 07/20/22 14:15 Calculated Osmolality 278 mOsm/kg (285-295) L 07/20/22 14:15 Lactic Acid 3.9 mmol/L (0.5-2.2) H 07/20/22 14:15 Calcium 9.2 mg/dL (8.5-10.5) 07/20/22 14:15 Magnesium 1.3 mg/dL (1.7-2.3) L 07/20/22 14:15 Total Bilirubin 0.7 mg/dL (0.15-1.2) 07/20/22 14:15 AST 43 U/L (0-40) H 07/20/22 14:15 ALT 36 U/L (0-41) 07/20/22 14:15 Alkaline Phosphatase 111 U/L (40-130) 07/20/22 14:15 Troponin T Baseline 172 ng/L (0-15) H* 07/20/22 14:15 Troponin T 120 Minute 167.2 ng/L (0-15) H 07/20/22 16:21 Delta Troponin T -4.8 ABS# (0-10) L 07/20/22 16:21 NT-Pro-B Natriuret Pep 3509 pg/mL (0-125) H 07/20/22 14:15 Total Protein 7.6 g/dL (6.6-8.7) 07/20/22 14:15 Albumin 4.0 g/dL (3.5-5.2) 07/20/22 14:15 Globulin 3.6 g/dL (1.3-4.6) 07/20/22 14:15 Procalcitonin 0.21 ng/mL (0-0.5) 07/20/22 14:15 TSH 2.65 uIU/mL (0.27-4.20) 07/20/22 14:15 Nasal Influ A H1 2008 PCR Detected (NOT DETECT) A 07/20/22 17:33 Coronavirus 229E (PCR) Not detected (NOT DETECT) 07/20/22 14:20 Influenza A (H1) PCR Not detected (NOT DETECT) 07/20/22 17: Influenza A (H3) PCR Not detected (NOT DETECT) 07/20/22 17:33 Influenza Type A (PCR) Detected (NOT DETECT) A 07/20/22 17: Influenza Type B (PCR) Not detected (NOT DETECT) 07/20/22 17:33 SARS-CoV-2 (PCR) Not detected (NOT DETECT) 07/20/22 14:20 Critical Care Time Critical Care Time: Critical Care Time: Yes Total Critical Care Time: 45 Attestation: Due to a high probability of clinically significant, possibly life threatening deterioration, the patient required my highest level of attention and preparedness to intervene emergently and I personally spent this critical care time directly and personally managing the patient. This critical care time included obtaining a history; examining the patient; pulse oximetry; ordering and review of laboratory and imaging studies; arranging urgent treatment with development of a management plan; evaluation of patient's response to treatment; frequent reassessment; and, discussions with other providers as applicable. It was exclusive of separately billable procedures. Primary system involved is cardiopulmonary Discharge Plan Discharge Patient Disposition: Admitted As Inpatient Admit Provider: Skyler Hui Clinical Impression: Atrial fibrillation with rapid ventricular response, Dehydration, Creatinine elevation, Abnormal blood electrolyte level Condition: Stable Discharge Diet: Cardiac Discharge Activity: Resume usual activity Coding Level of Care Code ED Detective Investigator for Markg Fwd Exam Comprehensive
--- NOTE | 2022-07-20 14:09 | ECG_ITS ---
[facility] Test Date: 2022-07-20 Pat Name: Jonathan Baker Department: Room: Gender: Male Manager System: : 1950 Requested By: Aldo Jenkins Order Number: [id number] Jean MD: Royer Dennison M.D. Measurements Intervals [place] Rate: 172 P: 0 WI: 0 QRS: 103 QRSD: 90 T: 26 QT: 266 QTc: 450 Interpretive Statements ATRIAL FIBRILLATION WITH RAPID VENTRICULAR RESPONSE RIGHT AXIS DEVIATION [QRS AXIS > 100] POSSIBLE RIGHT VENTRICULAR CONDUCTION DELAY [RSR (QR) IN V1/V2] MODERATE ST DEPRESSION [0.05+ mV ST DEPRESSION] Compared to ECG 10/05/2019 22:43:30 Right-axis deviation now present ST (T wave) deviation now present Sinus rhythm no longer present Ventricular premature complex(es) no longer present Incomplete right bundle-branch block no longer present Myocardial infarct finding no longer present Electronically Signed On 07-23-2022 18:26:55 RETAIL EVENT AND SALES ASSISTANT by Royer Dennison M.D. [email or web address]
--- NOTE | 2022-07-20 14:14 | XR_ITS ---
WS: [id number] Exam: XR chest 1V portable [id number] Date/Time of Exam: 07/20/2022 2:14 PM Reason For Exam: sob Comparison 10/05/2019. Probable very small pneumothorax at the lower lobe of the left lung. There are areas of the plaque at electasis in the mid and lower left lung. Small pleural effusion noted bordering the left lung. The r ight lung is clear and fully expanded. Cardiomediastinal structures are unremarkable for technique. S igns of previous CABG surgery. The osseous thorax is intact. Recommendations: Chest CT could be helpful for further workup if thought to be clinically warranted. XR/XR chest 1V portable [id number] IMPRESSION: 1. Findings suspicious for very small pneumothorax of the left lower lobe estim ated at 5% or slightly less. There is also pleural effusion bordering the left lung. 2. Areas of plaque atelectasis in the mid and lower left lung.
[2022-07-20] MEDS: sodium chloride 0.9% 1,000 ML 999 ML IV (14:18)
[2022-07-20 14:27] LABS: Basophils % 0.2 %; Hemoglobin 14.9 g/dL (11.7-16.6); Lymphocytes # 0.8 10^3/uL (0.8-4.8); Lymphocytes % 7.2 %; Mean Corpuscular HGB Conc 33.1 g/dL (30.0-36.0); Mean Corpuscular Hemoglobin 29.7 pg (28.0-34.0); Mean Corpuscular Volume 89.6 fl (80-94); Mean Platelet Volume 10.4 fL (7.4-10.4); Monocytes # 1.1 10^3/uL (0.2-0.9); Monocytes % 9.2 %; Neutrophils # 9.51 10^3/uL (1.8-7.7); Neutrophils % 83.1 %; Nucleated Red Blood Cells % 0 %; Platelet Count 169 10^3/cmm (130-400); Red Blood Count 5.02 10^6/uL (4.1-5.3); Red Cell Distribution Width 12.6 % (12.1-15.1); White Blood Count 11.4 10^3/uL (4.0-10.0)
[2022-07-20] MEDS: dilTIAZem 5 mg/mL SDV 5 mL 20 MG IVP ×2 (14:28→15:35)
[2022-07-20] MEDS: dilTIAZem 100 MG in sodium chloride 0.9% (add-van) 100 ML 10 MG IV (14:35)
--- NOTE | 2022-07-20 14:39 | PC.PHAR ---
pts daughter states she takes care of the pts medications-pts daughter brought in a [facility] and verified what the pt takes-[facility]ed the [facility] for [facility] med list daughter brought in has allopurinol 150mg daily pts daughter states the pt just takes 100mg daily waiting for [facility] to fax current med list-[facility] med [facility] daughter brought in had gabapentin 600mg bid pts daughter states the pt takes 300mg bid-[facility]ed [facility] for [facility] med [facility] pts daughter brought in has insulin glargine vial 45 units bid pt states he uses 65 units qam-notes are made in the pharmacy comments
[2022-07-20 14:49] LABS: Lactic Sepsis W/Reflex 3.9 mmol/L (0.5-2.2)
--- NOTE | 2022-07-20 15:02 | CTR_ITS ---
PROCEDURE INFORMATION: Exam: CT Chest Without Contrast; Diagnostic Exam date and time: 07/20/2022 3:42 PM Age: 72 years old Clinical indication: Shortness of breath; Additional info: SOB, abnormal cxr, creat: 1.8 gfr: 29 TECHNIQUE: Imaging protocol: Diagnostic computed tomography of the chest without contrast. Radiation optimization: All CT scans at this facility use at least one of these dose optimization techniques: automated exposure control; mA and/or kV adjustment per patient size (includes targeted exams where dose is matched to clinical indication); or iterative reconstruction. COMPARISON: CT chest wo con [id number] 05/15/2019 10:53 AM RADIATION DOSE METRICS: Total DLP (mGy-cm): 662.54 FINDINGS: Thyroid: There is a 5.8 x 4.3 cm right thyroid nodule with internal punctate calcification. Lungs: There is a 0.6 cm nodule in the right middle lobe on series 3, image 38 which appears new. There is a 2.8 cm nodule in the left upper lobe as best seen on sagittal image 17 which extends to the pleura. There are associated adjacent streaky linear opacifications. There is probable atelectasis/scar in the lungs. Pleural spaces: No pneumothorax. No pleural effusion. There is some left-sided pleural thickening. Previous identified left pleural effusion has resolved. Heart: There is extensive coronary artery calcification. Lymph nodes: Unremarkable. No enlarged lymph nodes. Vasculature: There is an IVC filter. Gallbladder and bile ducts: There has been a cholecystectomy. Kidneys and ureters: There is a 1.5 cm cyst in the mid left kidney. Bones/joints: Unremarkable. No acute fracture. Soft tissues: Unremarkable. CT/CT chest wo con [id number] IMPRESSION: No evidence for a pneumothorax. There are nodules in the right middle and left upper lobes of the lung which appear new when compared with 05/15/2019.For patients at low risk (minimal or absent history of smoking and of other known risk factors), recommend CT Chest at 3-6 months, then consider CT Chest at 18-24 months. For patients at high risk (history of smoking or of other known risk factors), recommend CT Chest at 3-6 months, then CT Chest at 18-24 months. (Reference: Maricruz) References: Maricruz Hagan et al. Guidelines for Management of Incidental Pulmonary Nodules Detected on CT Images: From the Fleischner Society 2017. Radiology. 2017;284(1):228-243. COMMENTS: 1. Consistent with the [place] [employer]'s Incidental Findings Committee white paper (J Am Alis Radiol 2018): Any incidental renal lesion less than 1 cm or classified as too small to characterize, or any incidental cystic renal lesion characterized as simple-appearing, is likely benign. No follow-up imaging is recommended for these lesions per consensus recommendations based on imaging criteria. 2. Consistent with the [employer]'s Incidental Findings Committee white paper (J Am Alis Radiol 2015): In patients aged 35 years and older with an incidental thyroid nodule equal to or greater than 1.[address], MRI or extrathyroidal US, further evaluation with dedicated thyroid US is recommended for patients with normal life expectancy and without comorbidities. For smaller nodules without suspicious features, no further evaluation or follow up is recommended.
[2022-07-20 15:03] LABS: Alanine Aminotransferase 36 U/L (0-41); Alkaline Phosphatase 111 U/L (40-130); Anion Gap 24.2 (5-19); Aspartate Amino Transferase 43 U/L (0-40); Blood Urea Nitrogen 30 mg/dL (8-23); Calcium 9.2 mg/dL (8.5-10.5); Carbon Dioxide 20 mmol/L (22-29); Chloride 88 mmol/L (98-107); Globulin 3.6 g/dL (1.3-4.6); Glucose 195 mg/dL (65-115); Magnesium 1.3 mg/dL (1.7-2.3); NT Pro B Type Natriuretic Pept 3509 pg/mL (0-125); Osmolality Calculated 278 mOsm/kg (285-295); Potassium 4.2 mmol/L (3.5-5.1); Procalcitonin 0.21 ng/mL (0-0.5); Sodium 128 mmol/L (136-145); Thyroid Stimulating Hormone 2.65 uIU/mL (0.27-4.20); Total Bilirubin 0.7 mg/dL (0.15-1.2); Total Protein 7.6 g/dL (6.6-8.7)
[2022-07-20 15:07] LABS: Troponin(5th) Baseline 172 ng/L (0-15)
[2022-07-20] MEDS: magnesium sulfate premix 4 GM/100 ML PREMIX IV (15:35)
--- NOTE | 2022-07-20 16:14 | ECG_ITS ---
[facility] Test Date: 2022-07-20 Pat Name: Jonathan Baker Department: Room: Gender: Male Crew Member: : 1950 Requested By: Aldo Jenkins Order Number: [id number] Jean MD: Royer Dennison M.D. Measurements Intervals [place] Rate: 150 P: 0 MT: 0 QRS: 91 QRSD: 105 T: 29 QT: 301 QTc: 476 Interpretive Statements ATRIAL FLUTTER/TACHYCARDIA WITH RAPID VENTRICULAR RESPONSE BORDERLINE RIGHT AXIS DEVIATION [QRS AXIS > 90] LOW QRS VOLTAGE IN PRECORDIAL LEADS [QRS DEFLECTION < 1.0 mV IN CHEST LEADS] INCOMPLETE RIGHT BUNDLE BRANCH BLOCK [90+ ms QRS DURATION, TERMINAL R IN V1/V2, 40+ ms S IN I/aVL/V4/V5/V6] NONSPECIFIC ST & T-WAVE ABNORMALITY CRITICAL TEST RESULT Compared to ECG 07/20/2022 14:09:43 Low QRS voltage now present Incomplete right bundle-branch block now present T-wave abnormality now present Atrial fibrillation no longer present ST (T wave) deviation no longer present Electronically Signed On 07-23-2022 18:34:18 SUPERVISOR HANGING AND TRIMMING by Royer Dennison M.D. [email or web address]
[2022-07-20 16:21] LABS: Reflex Lactate Order REFLEX LACTIC ORDERD
[2022-07-20 16:29] LABS: Adenovirus Not Detected (NOT DETECT); Chlamydia Pneumoniae Not Detected (NOT DETECT); Coronavirus 229E,HKU1,NL63,OC4 Not Detected (NOT DETECT); Human Metapneumovirus Not Detected (NOT DETECT); Human Rhinovirus/Enterovirus Not Detected (NOT DETECT); Influenza A Detected (NOT DETECT); Influenza A H1 Not Detected (NOT DETECT); Influenza A H1-2009 Detected (NOT DETECT); Influenza A H3 Not Detected (NOT DETECT); Influenza B Not Detected (NOT DETECT); Mycoplasma Pneumoniae Not Detected (NOT DETECT); Parainfluenza Virus Type 1 Not Detected (NOT DETECT); Parainfluenza Virus Type 2 Not Detected (NOT DETECT); Parainfluenza Virus Type 3 Not Detected (NOT DETECT); Parainfluenza Virus Type 4 Not Detected (NOT DETECT); Respiratory Syncytial Virus A Not Detected (NOT DETECT); Respiratory Syncytial Virus B Not Detected (NOT DETECT); SARS-COV-2 Not Detected (NOT DETECT)
[2022-07-20 16:53] LABS: Troponin 5 2HR Delta -4.8 ABS# (0-10)
[2022-07-20 16:54] LABS: Troponin 5 2HR 167.2 ng/L (0-15)
[2022-07-20] MEDS: digoxin 250 mcg/ml INJ 2 mL IVP (17:09)
[2022-07-20] MEDS: sodium chloride 0.9% 1,000 ML 75 ML IV (18:26)
--- NOTE | 2022-07-20 19:13 | PC.NURSE ---
report called to [facility].
[2022-07-20 19:36] LABS: Influenza A Detected (NOT DETECT); Influenza A H1 Not Detected (NOT DETECT); Influenza A H1-2009 Detected (NOT DETECT); Influenza A H3 Not Detected (NOT DETECT); Influenza B Not Detected (NOT DETECT); Results from Genmark
[2022-07-20 20:46] LABS: Troponin 5 6HR 191.2 ng/L (0-15); Troponin 5 6HR Delta 19.2 ng/L (0-12)
--- NOTE | 2022-07-20 20:48 | PC.NURSE ---
critical lab called. yee 191.2. pt is currently in CSU, called to [facility].
[2022-07-20 20:59] LABS: Glucose Point of Care 210 mg/dL (70-110)
--- NOTE | 2022-07-20 22:25 | P.HP_ITS ---
Providers/Chief Complaint Admitting Physician: Sandrita Emerson MD Chief Complaint: SOB, congestion History of Present Illness Jonathan Baker is a 72 year old male with PMH CAD s/p CABG, chronic A fib, HTN, presenting with 3-4 javed of fever, cough and chest discomfort. He feels subjectively dyspneic ovcer the past 2-3 days. Today he experieniced palpitations additionally which brought him to ER. Here he as found to be in A fib with RVR with HR 170s. He was started on amiodarone infusion in the ER. currently HR is improved to 110s. Chest discomfort better with control of HR. Denies dyspnea, orthopnea or PND Review of Systems General: Reports: 10 or more systems reviewed and unremarkable except in HPI and below Const: Denies: fever(s), chills or body aches Eyes: Denies: change in vision, blurry vision or photophobia ENMT: Reports: hoarseness; Denies: throat pain, enlarged tonsils, odynophagia or nasal congestion Card: Denies: chest pain, palpitations, irregular heart rhythm, edema, swelling of feet/ankles, lightheadedness, pre-syncope, dyspnea on exertion or orthopnea Resp: Denies: dyspnea, productive cough, non-productive cough, wheezing, stridor, pain on inspiration, change in phlegm color, hemoptysis or chest congestion GI: Denies: abdominal pain, nausea, vomiting, hematemesis, coffee ground emesis, dysphagia, heartburn, diarrhea, constipation, GI cramping, change in stool character, hematochezia or melena : Denies: flank pain, dysuria, urinary frequency, urinary urgency, urinary hesitancy or hematuria Musc: Denies: neck pain, back pain, extremity pain, joint swelling, joint warmth or deformity Neuro: Denies: headache(s), numbness in extremities, weakness in extremities, sensory changes, difficulty walking, frequent falls, dizziness, vertigo, behavi oral changes, Slurred speech present or seizure-like activity Psych: Denies: anxiety, depression, suicidal ideation or homicidal ideation Endo: Denies: polyuria, polydipsia, tired all the time, cold intolerance or hot flashes Nilson/Lymph: Denies: easy bruising or easy bleeding Medications/Allergies Home Medications Medication Instructions Recorded Confirmed Last Taken Type aspirin 81 mg tablet,delayed 81 mg PO DAILY 10/14/19 07/20/22 Unknown History release (Adult Low Dose Aspirin) ezetimibe 10 mg tablet 10 mg PO DAILY 10/14/19 07/20/22 Unknown History glipizide 10 mg tablet 5 mg PO BID 10/14/19 07/20/22 Unknown History allopurinol 100 mg tablet 100 mg PO DAILY 07/20/22 07/20/22 Unknown History apixaban 5 mg tablet (Eliquis) 5 mg PO BID 07/20/22 07/20/22 Unknown History cetirizine 10 mg tablet (Zyrtec) 10 mg PO DAILY 07/20/22 07/20/22 Unknown History cholecalciferol (vitamin D3) 25 75 mcg PO DAILY 07/20/22 07/20/22 Unknown History mcg (1,000 unit) tablet (Vitamin D3) cromolyn 5.2 mg/spray (4 %) nasal 1 spray intranasal DAILY PRN 07/20/22 07/20/22 Unknown History spray unknown docusate sodium 100 mg capsule 200 mg PO BID 07/20/22 07/20/22 Unknown History (Colace) gabapentin 600 mg tablet 300 mg PO BID 07/20/22 07/20/22 Unknown History insulin glargine 100 unit/mL 65 unit SUBCUT QAM 07/20/22 07/20/22 07/19/22 History subcutaneous solution lisinopril 10 2 tab PO QAM 07/20/22 07/20/22 Unknown History mg-hydrochlorothiazide 12.5 mg tablet metoprolol succinate 50 mg 25 mg PO DAILY 07/20/22 07/20/22 Unknown History tablet,extended release 24 hr omega-3 fatty acids 1,000 mg 1,000 mg PO BID 07/20/22 07/20/22 Unknown History capsule paroxetine HCl 40 mg tablet (Paxil) 40 mg PO DAILY 07/20/22 07/20/22 Unknown History rosuvastatin 40 mg tablet 20 mg PO DAILY 07/20/22 07/20/22 Unknown History sodium bicarbonate 650 mg tablet 650 mg PO BID 07/20/22 07/20/22 Unknown History tamsulosin 0.4 mg capsule (Flomax) 0.4 mg PO QPM 07/20/22 07/20/22 Unknown History Allergies Allergy/AdvReac Type Severity Reaction Status Date / Time No Known Allergies Allergy Verified 07/20/22 14:25 PFSH Acute PFSH: Medical History (Updated 07/21/22 @ 03:18 by Sandrita Emerson MD) Chronic atrial fibrillation Essential hypertension Surgical History Hx of CABG Family History Other Family history of premature coronary artery disease Stroke Social History Smoking and tobacco status: former smoker Vitals/I&O/Wt Last Vital Signs Temp 97.2 F L 07/20/22 20:00 Pulse 116 H 07/20/22 22:00 Resp 16 07/20/22 20:00 BP 159/88 07/20/22 20:00 Pulse Ox 99 07/20/22 20:00 O2 Del Method 07/20/22 20:36 07/20/22 07/20/22 07/20/22 06:59 14:59 22:59 Intake Total 3.833 / 3.833 1511 / 1514.833 Balance 3.833 / 3.833 1511 / 1514.833 Weight last 48 hrs Weight 106.231 kg Weight 102.058 kg Physical Exam Narrative: General: No acute distress, AO x3 HEENT: PERRLA, pupils bilaterally equal and reactive, pallors not present Chest: Normal vesicular breath sounds, no added sounds, equal good air entry bilaterally CVS: S1-S2 regular, no murmurs, no tachycardia, no gallops, no rubs Abdomen: Soft, nontender, no organomegaly, bowel sounds present Neuro: No focal deficits, no facial deformity, AO x3, power 5/5 in all limbs Data 07/20/22 14:15 07/20/22 14:15 Micro: Microbiology 07/20/22 14:34 Blood Culture - Preliminary Blood SPECIMEN COLLECTED 07/20/22 14:34 Blood Culture - Preliminary Blood SPECIMEN COLLECTED Other data: Radiology Impressions Chest X-Ray 07/20/22 14:14 IMPRESSION: 1. Findings suspicious for very small pneumothorax of the left lower lobe estimated at 5% or slightly less. There is also pleural effusion bordering the left lung. 2. Areas of plaque atelectasis in the mid and lower left lung. Chest CT 07/20/22 15:02 IMPRESSION: No evidence for a pneumothorax. There are nodules in the right middle and left upper lobes of the lung which appear new when compared with 05/15/2019.For patients at low risk (minimal or absent history of smoking and of other known risk factors), recommend CT Chest at 3-6 months, then consider CT Chest at 18-24 months. For patients at high risk (history of smoking or of other known risk factors), recommend CT Chest at 3-6 months, then CT Chest at 18-24 months. (Reference: Maricruz) References: Maricruz Hagan et al. Guidelines for Management of Incidental Pulmonary Nodules Detected on CT Images: From the Fleischner Society 2017. Radiology. 2017;284(1):228-243. COMMENTS: 1. Consistent with the [employer]'s Incidental Findings Committee white paper (J Am Alis Radiol 2018): Any incidental renal lesion less than 1 cm or classified as too small to characterize, or any incidental cystic renal lesion characterized as simple-appearing, is likely benign. No follow-up imaging is recommended for these lesions per consensus recommendations based on imaging criteria. 2. Consistent with the [place] [employer]'s Incidental Findings Committee white paper (J Am Alis Radiol 2015): In patients aged 35 years and older with an incidental thyroid nodule equal to or greater than 1.[address], MRI or extrathyroidal US, further evaluation with dedicated thyroid US is recommended for patients with normal life expectancy and without comorbidities. For smaller nodules without suspicious features, no further evaluation or follow up is recommended. Laboratory Results WBC 11.4 10^3/uL (4.0-10.0) H 07/20/22 14:15 RBC 5.02 10^6/uL (4.1-5.3) 07/20/22 14:15 Hgb 14.9 g/dL (11.7-16.6) 07/20/22 14:15 Hct 45.0 % (42.0-52.0) 07/20/22 14:15 MCV 89.6 fl (80-94) 07/20/22 14:15 MCH 29.7 pg (28.0-34.0) 07/20/22 14:15 MCHC 33.1 g/dL (30.0-36.0) 07/20/22 14:15 RDW 12.6 % (12.1-15.1) 07/20/22 14:15 Plt Count 169 10^3/cmm (130-400) 07/20/22 14:15 MPV 10.4 fL (7.4-10.4) 07/20/22 14:15 Neut % (Auto) 83.1 % 07/20/22 14:15 Lymph % (Auto) 7.2 % 07/20/22 14:15 [place] % (Auto) 9.2 % 07/20/22 14:15 Eos % (Auto) 0.0 % 07/20/22 14:15 Baso % (Auto) 0.2 % 07/20/22 14:15 Neut # (Auto) 9.51 10^3/uL (1.8-7.7) H 07/20/22 14:15 Lymph # (Auto) 0.8 10^3/uL (0.8-4.8) 07/20/22 14:15 [place] # (Auto) 1.1 10^3/uL (0.2-0.9) H 07/20/22 14:15 Eos # (Auto) 0.0 10^3/uL (0.0-0.8) 07/20/22 14:15 Baso # (Auto) 0.0 10^3/uL (0.0-0.1) 07/20/22 14:15 Nucleated RBC % (auto) 0 % 07/20/22 14:15 Nucleated RBCs # 0.0 /100WBC 07/20/22 14:15 Sodium 128 mmol/L (136-145) L 07/20/22 14:15 Potassium 4.2 mmol/L (3.5-5.1) 07/20/22 14:15 Chloride 88 mmol/L (98-107) L 07/20/22 14:15 Carbon Dioxide 20 mmol/L (22-29) L 07/20/22 14:15 Anion Gap 24.2 (5-19) H 07/20/22 14:15 BUN 30 mg/dL (8-23) H 07/20/22 14:15 Creatinine 1.8 mg/dL (0.7-1.2) H 07/20/22 14:15 GFR Calculation Not Reportable 07/20/22 14:15 Glucose 195 mg/dL (65-115) H 07/20/22 14:15 POC Glucose 210 mg/dL (70-110) H 07/20/22 20:31 Calculated Osmolality 278 mOsm/kg (285-295) L 07/20/22 14:15 Lactic Acid 3.9 mmol/L (0.5-2.2) H 07/20/22 14:15 Calcium 9.2 mg/dL (8.5-10.5) 07/20/22 14:15 Magnesium 1.3 mg/dL (1.7-2.3) L 07/20/22 14:15 Total Bilirubin 0.7 mg/dL (0.15-1.2) 07/20/22 14:15 AST 43 U/L (0-40) H 07/20/22 14:15 ALT 36 U/L (0-41) 07/20/22 14:15 Alkaline Phosphatase 111 U/L (40-130) 07/20/22 14:15 Troponin T Baseline 172 ng/L (0-15) H* 07/20/22 14:15 Troponin T 120 Minute 167.2 ng/L (0-15) H 07/20/22 16:21 Delta Troponin T -4.8 ABS# (0-10) L 07/20/22 16:21 Troponin T Hi Sens 6Hr 191.2 ng/L (0-15) H 07/20/22 19:55 Troponin T Hi Sens 6Hr Delta 19.2 ng/L (0-12) H* 07/20/22 19:55 NT-Pro-B Natriuret Pep 3509 pg/mL (0-125) H 07/20/22 14:15 Total Protein 7.6 g/dL (6.6-8.7) 07/20/22 14:15 Albumin 4.0 g/dL (3.5-5.2) 07/20/22 14:15 Globulin 3.6 g/dL (1.3-4.6) 07/20/22 14:15 Procalcitonin 0.21 ng/mL (0-0.5) 07/20/22 14:15 TSH 2.65 uIU/mL (0.27-4.20) 07/20/22 14:15 Nasal Influ A H1 2009 PCR Detected (NOT DETECT) A 07/20/22 17:33 Coronavirus 229E (PCR) Not detected (NOT DETECT) 07/20/22 14:20 Influenza A (H1) PCR Not detected (NOT DETECT) 07/20/22 17:33 Influenza A (H3) PCR Not detected (NOT DETECT) 07/20/22 17:33 Influenza Type A (PCR) Detected (NOT DETECT) A 07/20/22 17:33 Influenza Type B (PCR) Not detected (NOT DETECT) 07/20/22 17:33 SARS-CoV-2 (PCR) Not detected (NOT DETECT) 07/20/22 14:20 A&P Assessment and plan (1) Atrial fibrillation with rapid ventricular response: Currently on Amiodarone infusion which will be continued Continue metoprolol 25 mg po daily He has additionally received cardizem pushes 20 mg iv x 2, digoxin 250mcg x 1 (2) Influenza A: Start Tamiflu 750 mg po BID x 5 days CXR without gross consolidation at this time Supplemental 02 to keep sat 92% (3) NSTEMI (non-ST elevated myocardial infarction): Elevated troponin with 6 hr delta at 19 Denies curent chest pain May be type 2 IN from RVR and CHF Asa 81mg po daily to continue D/c Eliquis, instead start lovenox 1mg/kg s/c q12h (4) CHF (congestive heart failure): lasix 20mg iv x 1 now, monitor for urine output and renal function, titrate based on both Attestations Medical Necessity Statement*: anticipate >2midnight admission for above defined car e Coding Level of Care Code Acute Coil [place] Hand for Chg Fwd Diagnoses Atrial fibrillation with rapid ventricular response I48.91 Influenza A J10.1 NSTEMI (non-ST elevated myocardial infarction) I21.4 CHF (congestive heart failure) I50.9
--- NOTE | 2022-07-20 22:33 | PC.NURSE ---
Patient continues on amiodarone drip as ordered and documented. Assisted patient up to bathroom. Patient has increase of heart rate to 160s with any exertion along with increased shortness of breath. Patient's HR slows to the 100s to 110s at rest. Denies pain or needs at this time. Will continue to monitor.
[2022-07-20] MEDS: enoxaparin 100 mg/mL Syringe SUBCUT (23:15)
--- NOTE | 2022-07-20 23:21 | PC.NURSE ---
Patient's heart rate is currently low 80's and in NSR.
--- NOTE | 2022-07-20 23:26 | ECG_ITS ---
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 Measurements Intervals [place] Rate: 77 P: 75 AL: 198 QRS: 30 QRSD: 108 T: 62 QT: 397 QTc: 452 Interpretive Statements SINUS RHYTHM LOW QRS VOLTAGE IN PRECORDIAL LEADS [QRS DEFLECTION < 1.0 mV IN CHEST LEADS] INCOMPLETE RIGHT BUNDLE BRANCH BLOCK [90+ ms QRS DURATION, TERMINAL R IN V1/V2, 40+ ms S IN I/aVL/V4/V5/V6] MINIMAL ST DEPRESSION [0.025+ mV ST DEPRESSION] Compared to ECG 07/20/2022 16:51:34 ST (T wave) deviation now present Atrial flutter no longer present T-wave abnormality no longer present Electronically Signed On 07-23-2022 18:31:25 RN ADMISSION by Royer Dennison M.D. [id number]
[2022-07-21] VITALS (12 sets, daily range): BP systolic 115–173; BP diastolic 61–95; PULSE 62–75; RESP 16–22; TEMP 37.2; O2SAT 90–96
[2022-07-21 04:05] LABS: Basophils % 0.2 %; Hematocrit 40.3 % (42.0-52.0); Hemoglobin 13.6 g/dL (11.7-16.6); Lymphocytes # 1.3 10^3/uL (0.8-4.8); Lymphocytes % 21.5 %; Mean Corpuscular HGB Conc 33.7 g/dL (30.0-36.0); Mean Corpuscular Hemoglobin 30.1 pg (28.0-34.0); Mean Corpuscular Volume 89.2 fl (80-94); Mean Platelet Volume 11.1 fL (7.4-10.4); Monocytes # 0.8 10^3/uL (0.2-0.9); Monocytes % 13.6 %; Neutrophils # 3.74 10^3/uL (1.8-7.7); Neutrophils % 64.2 %; Nucleated Red Blood Cells % 0 %; Platelet Count 142 10^3/cmm (130-400); Red Blood Count 4.52 10^6/uL (4.1-5.3); Red Cell Distribution Width 12.7 % (12.1-15.1); White Blood Count 5.8 10^3/uL (4.0-10.0)
[2022-07-21 04:28] LABS: Lactate (Lactic Acid level) 1.1 mmol/L (0.5-2.2)
[2022-07-21 04:46] LABS: Alanine Aminotransferase 31 U/L (0-41); Albumin Level 3.6 g/dL (3.5-5.2); Alkaline Phosphatase 94 U/L (40-130); Anion Gap 19.7 (5-19); Aspartate Amino Transferase 39 U/L (0-40); Blood Urea Nitrogen 32 mg/dL (8-23); Calcium 8.8 mg/dL (8.5-10.5); Carbon Dioxide 21 mmol/L (22-29); Chloride 94 mmol/L (98-107); Globulin 3.2 g/dL (1.3-4.6); Glucose 142 mg/dL (65-115); Magnesium 1.4 mg/dL (1.7-2.3); Osmolality Calculated 281 mOsm/kg (285-295); Potassium 3.7 mmol/L (3.5-5.1); Sodium 131 mmol/L (136-145); Total Bilirubin 0.6 mg/dL (0.15-1.2); Total Protein 6.8 g/dL (6.6-8.7)
[2022-07-21] MEDS: hydroCHLOROthiazide 25 mg Tablet PO (05:59)
[2022-07-21] MEDS: lisinopril 20 mg Tablet PO (05:59)
[2022-07-21] MEDS: insulin glargine 100 units/1 mL 65 UNIT SUBCUT (05:59)
[2022-07-21 06:04] LABS: Glucose Point of Care 144 mg/dL (70-110)
[2022-07-21] MEDS: ondansetron 2 mg/ML SDV 2 mL 4 MG IVP (06:38)
--- NOTE | 2022-07-21 07:00 | USCV_ITS ---
Jonathan Baker Age: 72 Gender: M : 1950 Exam Date: 07/21/2022 07:41 Ordering Phys: Sandrita Emerson MD Technologist: JOHNY [place] [facility] [place]: nstemi BP: 165 / 95 HR: 74 Rhythm: Sinus Technical Quality: Adequate MEASUREMENTS (Male / Female) Normal Values 2D ECHO LV Diastolic Diameter PLAX 5.4 cm 4.2 - 5.9 / 3.9 - 5.3 cm LV Systolic Diameter PLAX 3.0 cm IVS Diastolic Thickness 1.1 cm 0.6 - 1.0 / 0.6 - 0.9 cm IVS Systolic Thickness 1.3 cm LVPW Diastolic Thickness 1.2 cm 0.6 - 1.0 / 0.6 - 0.9 cm LVPW Systolic Thickness 1.9 cm LVOT Diameter 2.3 cm LV Ejection Fraction 2D Teich 76.0 % LV Ejection Fraction MOD 2C 46.9 % LV Ejection Fraction 2C AL 46.9 % LA Diameter 5.0 cm Aorta at Sinotubular Diameter 3.5 cm IVC Diameter 2.7 cm M-MODE Aortic Annulus Diameter 3.6 cm LA Ao Ratio MM 1.5 MV E Point Septal Separation 0.4 cm DOPPLER AV Peak Velocity 129.0 cm/s LVOT Peak Velocity 104.0 cm/s AV Area Cont Eq vti 3.6 cm squared AV Area Cont Eq pk 3.3 cm squared MV Area PHT 5.1 cm squared Mitral E to A Ratio 1.6 MV E' Velocity 57.0 cm/s Mitral E to MV E' Ratio 12.9 Mitral E to LV E' Lateral Ratio 9.3 Mitral E to LV E' Septal Ratio 21.0 TR Peak Velocity 162.0 cm/s TR Peak Gradient 10.5 mmHg TV Peak E Velocity 72.0 cm/s Right Atrial Pressure 3.0 mmHg Pulmonary Artery Systolic Pressu 13.5 mmHg PV Peak Velocity 89.0 cm/s RV Acceleration Time 0.1 s FINDINGS Left Ventricle Left ventricle is normal in size. LV systolic function is grossly normal. Regional wall motion abnormalities cannot be accurately assessed because of poor ultrasonic windows. Right Ventricle Normal in size and function Right Atrium Normal in size Left Atrium Dilated Mitral Valve Mitral valve is thickened. Mild mitral regurgitation. Aortic Valve Aortic valve is thickened. No significant stenosis is seen Tricuspid Valve Trace tricuspid regurgitation. Insufficient TR jet to calculate RVSP Pulmonic Valve Mild pulmonic regurgitation. Pericardium Grossly normal Aorta Normal in size IVC CONCLUSIONS Technically limited quality echocardiogram because of poor ultrasonic windows. LV systolic function is grossly normal Left atrium is dilated Mitral valve is thickened. Mild mitral regurgitation Trace tricuspid regurgitation Mild pulmonic regurgitation Compared to prior echocardiogram from 04/2019, no significant changes are seen Royer Dennison MD (Electronically Signed) Final Date: 21 July 2022 20:21 S
[2022-07-21] MEDS: atorvastatin 40 mg Tablet 80 MG PO (08:40)
[2022-07-21] MEDS: pantoprazole DR 40 mg Tablet PO (08:40)
[2022-07-21] MEDS: aspirin 81 mg EC Tablet PO (08:40)
[2022-07-21] MEDS: ezetimibe 10 mg Tablet PO (08:40)
[2022-07-21] MEDS: sodium bicarbonate 650 mg Tablet PO ×2 (08:40→17:56)
[2022-07-21] MEDS: gabapentin 300 mg Capsule PO ×2 (08:40→17:56)
[2022-07-21] MEDS: PARoxetine 20 mg Tablet 40 MG PO (08:40)
[2022-07-21] MEDS: allopurinol 100 mg Tablet PO (08:40)
[2022-07-21] MEDS: oseltamivir phosphate 75 mg Capsule PO ×2 (08:41→17:56)
[2022-07-21] MEDS: metoprolol succinate ER (24 HR) 25 mg Tablet PO (08:54)
[2022-07-21 11:39] LABS: Glucose Point of Care 132 mg/dL (70-110)
[2022-07-21] MEDS: enoxaparin 100 mg/mL Syringe SUBCUT ×2 (12:39→22:08)
--- NOTE | 2022-07-21 13:05 | PM.PN ---
Subjective Subjective: Patient is resting comfortably in bed, no fevers, no chills, no cough Vitals/I&O/Wt Last Vital Signs Temp 97.2 F L 07/20/22 20:00 Pulse 66 07/21/22 11:43 Resp 16 07/21/22 11:43 BP 147/82 07/21/22 11:43 Pulse Ox 96 07/21/22 11:43 O2 Del Method 07/21/22 06:00 07/20/22 07/21/22 07/21/22 22:59 06:59 14:59 Intake Total 1834.75 / 1838.583 207.18 / 2045.763 360 / 360 Balance 1834.75 / 1838.583 207.18 / 2045.763 360 / 360 Weight last 48 hrs Weight 106.231 kg Weight 102.058 kg Physical Exam Const: COMMON NORMALS: no acute distress and patient oriented x3 Resp: COMMON NORMALS: normal respiratory effort, No retractions, No use of accessory muscles and clear to auscultation bilaterally AUSCULTATION: clear to auscultation bilaterally Cardio: COMMON NORMALS: regular rate, regular rhythm, S1 normal heart sound present and S2 normal heart sound present RATE: regular rate RHYTHM: regular rhythm HEART SOUNDS: S1 normal heart sound present and S2 normal heart sound present GI: COMMON NORMALS: Normal to inspection, nondistended, normoactive bowel sounds present, non-tender and no masses Extremity: COMMON NORMALS: no pedal edema Neuro: COMMON NORMALS: patient oriented x3 Psych: COMMON NORMALS: mental status grossly normal Data 07/21/22 02:42 07/21/22 02:42 Micro: Microbiology 07/20/22 14:34 Blood Culture - Preliminary Blood SPECIMEN COLLECTED 07/20/22 14:34 Blood Culture - Preliminary Blood SPECIMEN COLLECTED A&P Assessment and plan (1) Atrial fibrillation with rapid ventricular response: Currently on Amiodarone infusion which will be continued Continue metoprolol 25 mg po daily He has additionally received cardizem pushes 20 mg iv x 2, digoxin 250mcg x 1 (2) Influenza A: Start Tamiflu 750 mg po BID x 5 days CXR without gross consolidation at this time Supplemental 02 to keep sat 92% (3) NSTEMI (non-ST elevated myocardial infarction): Elevated troponin with 6 hr delta at 19 Denies curent chest pain May be type 2 CA from RVR and CHF Asa 81mg po daily to continue D/c Eliquis, instead start lovenox 1mg/kg s/c q12h (4) CHF (congestive heart failure): lasix 20mg iv x 1 now, monitor for urine output and renal function, titrate based on both Attestations Medical Necessity Statement*: Patient requires hospitalization for A. fib, influenza, NSTEMI, CHF Coding Level of Care Code Acute Private Detective for [facility] Fwd Diagnoses Atrial fibrillation with rapid ventricular response I48.91 Influenza A J10.1 NSTEMI (non-ST elevated myocardial infarction) I21.4 CHF (congestive heart failure) I50.9
[2022-07-21 17:03] LABS: Glucose Point of Care 155 mg/dL (70-110)
[2022-07-21] MEDS: insulin lispro 100 unit/1 mL SUBCUT (17:54)
[2022-07-21] MEDS: tamsulosin 0.4 mg Capsule PO (17:56)
[2022-07-21] MEDS: amiodarone 200 mg Tablet 400 MG PO (17:56)
[2022-07-21 20:41] LABS: Glucose Point of Care 126 mg/dL (70-110)
[2022-07-22] VITALS (8 sets, daily range): BP systolic 124–144; BP diastolic 66–76; PULSE 62–66; RESP 16–20; TEMP 36.6–36.9; O2SAT 94–97
[2022-07-22 04:12] LABS: Basophils % 0.8 %; Eosinophils # 0.1 10^3/uL (0.0-0.8); Eosinophils % 1.9 %; Hematocrit 39.3 % (42.0-52.0); Lymphocytes # 1.3 10^3/uL (0.8-4.8); Lymphocytes % 26.9 %; Mean Corpuscular HGB Conc 33.1 g/dL (30.0-36.0); Mean Corpuscular Hemoglobin 29.7 pg (28.0-34.0); Mean Corpuscular Volume 89.9 fl (80-94); Mean Platelet Volume 11.2 fL (7.4-10.4); Monocytes # 0.6 10^3/uL (0.2-0.9); Monocytes % 13.5 %; Neutrophils # 2.68 10^3/uL (1.8-7.7); Neutrophils % 56.5 %; Nucleated Red Blood Cells % 0 %; Platelet Count 143 10^3/cmm (130-400); Red Blood Count 4.37 10^6/uL (4.1-5.3); Red Cell Distribution Width 12.6 % (12.1-15.1); White Blood Count 4.8 10^3/uL (4.0-10.0)
[2022-07-22 04:39] LABS: Alanine Aminotransferase 36 U/L (0-41); Albumin Level 3.5 g/dL (3.5-5.2); Alkaline Phosphatase 107 U/L (40-130); Anion Gap 16.9 (5-19); Aspartate Amino Transferase 41 U/L (0-40); Blood Urea Nitrogen 31 mg/dL (8-23); Calcium 8.7 mg/dL (8.5-10.5); Carbon Dioxide 23 mmol/L (22-29); Chloride 96 mmol/L (98-107); Globulin 3.5 g/dL (1.3-4.6); Glucose 116 mg/dL (65-115); Magnesium 1.4 mg/dL (1.7-2.3); Osmolality Calculated 282 mOsm/kg (285-295); Phosphorus 3.3 mg/dL (2.5-4.5); Potassium 3.9 mmol/L (3.5-5.1); Sodium 132 mmol/L (136-145); Total Bilirubin 0.6 mg/dL (0.15-1.2)
[2022-07-22] MEDS: lisinopril 20 mg Tablet PO (05:12)
[2022-07-22] MEDS: hydroCHLOROthiazide 25 mg Tablet PO (05:12)
[2022-07-22] MEDS: insulin glargine 100 units/1 mL 65 UNIT SUBCUT (06:03)
[2022-07-22 07:24] LABS: Glucose Point of Care 106 mg/dL (70-110)
--- NOTE | 2022-07-22 09:06 | P.CONIM_ITS ---
Providers/Reason For Consult Consulting Physician/Specialty*: Royer Dennison MD/ Cardiology Reason for Consult*: Troponin elevation Requesting Physician: Dr Boggs Attending Physician: Kevin Boggs MD History of Present Illness History of Present Illness Jonathan Baker is a 72 year old male with past medical history of CAD s/p CABG, hypertension, A. fib presented to the hospital with chest discomfort and cough. He also had fever. He was found to be influenza positive. He was found to be in A. fib with RVR at time of hospital admission. After rate control chest pain disappeared. Cardiology was consulted as troponins were elevated 172 at baseline to 191 at 6 hours. EKG does not show any significant ischemic changes. Echo shows a grossly normal LV systolic function Review of Systems General: Reports: 10 or more systems reviewed and unremarkable except in HPI and below Const: Denies: fever(s), chills or body aches Eyes: Denies: change in vision, blurry vision or photophobia ENMT: Reports: hoarseness; Denies: throat pain, enlarged tonsils, odynophagia or nasal congestion Card: Denies: chest pain, palpitations, irregular heart rhythm, edema, swelling of feet/ankles, lightheadedness, pre-syncope, dyspnea on exertion or orthopnea Resp: Denies: dyspnea, productive cough, non-productive cough, wheezing, stridor, pain on inspiration, change in phlegm color, hemoptysis or chest congestion GI: Denies: abdominal pain, nausea, vomiting, hematemesis, coffee ground emesis, dysphagia, heartburn, diarrhea, constipation, GI cramping, change in stool character, hematochezia or melena : Denies: flank pain, dysuria, urinary frequency, urinary urgency, urinary hesitancy or hematuria Musc: Denies: neck pain, back pain, extremity pain, joint swelling, joint warmth or deformity Neuro: Denies: headache(s), numbness in extremities, weakness in extremities, sensory changes, difficulty walking, frequent falls, dizziness, vertigo, behavioral changes, Slurred speech present or seizure-like activity Psych: Denies: anxiety, depression, suicidal ideation or homicidal ideation Endo: Denies: polyuria, polydipsia, tired all the time, cold intolerance or hot flashes Nilson/Lymph: Denies: easy bruising or easy bleeding Medications/Allergies Home Medications Medication Instructions Recorded Confirmed Last Taken Type aspirin 81 mg tablet,delayed 81 mg PO DAILY 10/14/19 07/25/22 07/25/22 History release (Adult Low Dose Aspirin) ezetimibe 10 mg tablet 10 mg PO DAILY 10/14/19 07/25/22 07/25/22 History allopurinol 100 mg tablet 100 mg PO DAILY 07/20/22 07/25/22 07/25/22 History apixaban 5 mg tablet (Eliquis) 5 mg PO BID 07/20/22 07/25/22 07/25/22 History cetirizine 10 mg tablet (Zyrtec) 10 mg PO DAILY 07/20/22 07/25/22 07/25/22 History cholecalciferol (vitamin D3) 25 75 mcg PO DAILY 07/20/22 07/25/22 07/25/22 History mcg (1,000 unit) tablet (Vitamin D3) cromolyn 5.2 mg/spray (4 %) nasal 1 spray intranasal DAILY PRN 07/20/22 07/25/22 07/25/22 History spray unknown docusate sodium 100 mg capsule 200 mg PO BID 07/20/22 07/25/22 07/25/22 History (Colace) gabapentin 600 mg tablet 300 mg PO BID 07/20/22 07/25/22 07/25/22 History insulin glargine 100 unit/mL 65 unit SUBCUT QAM 07/20/22 07/25/22 07/25/22 History subcutaneous solution lisinopril 10 2 tab PO QAM 07/20/22 07/25/22 Unknown History mg-hydrochlorothiazide 12.5 mg tablet metoprolol succinate 50 mg 25 mg PO DAILY 07/20/22 07/25/22 07/25/22 History tablet,extended release 24 hr omega-3 fatty acids 1,000 mg 1,000 mg PO BID 07/20/22 07/25/22 07/25/22 History capsule paroxetine HCl 40 mg tablet (Paxil) 40 mg PO DAILY 07/20/22 07/25/22 07/25/22 History rosuvastatin 40 mg tablet 20 mg PO DAILY 07/20/22 07/25/22 07/25/22 History sodium bicarbonate 650 mg tablet 650 mg PO BID 11/07/25/22 07/25/22 Histo ry tamsulosin 0.4 mg capsule (Flomax) 0.4 mg PO QPM 07/20/22 07/25/22 07/24/22 History amiodarone 200 mg tablet (Pacerone) See Rx Instructions .Route 07/23/22 07/25/22 07/25/22 Rx .COMPLEX 30 days #60 tabs glipizide 10 mg tablet 5 mg PO QPM 07/25/22 07/25/22 07/24/22 History nut.tx.gluc.intol,lac-free,soy 1 ea PO BID 07/25/22 07/25/22 Unknown History (Glucerna Shake oral liquid) albuterol sulfate 2.5 mg/3 mL 2.5 mg (3 mL) inhalation Q8H PRN 08/01/22 Unknown Rx (0.083 %) solution for nebulization shortness of breath or wheezing #75 mL fluticasone 500 mcg-salmeterol 50 1 inh inhalation BID #60 ea 08/01/22 Unknown Rx mcg/dose blistr powdr for inhalation (Advair Diskus) levofloxacin 500 mg tablet 500 mg PO DAILY@0600 7 days #7 tabs 08/01/22 Unknown Rx tiotropium bromide 2.5 2 inh inhalation Q24H #4 grams 08/01/22 Unknown Rx mcg/actuation mist for inhalation (Spiriva Respimat) Allergies Allergy/AdvReac Type Severity Reaction Status Date / Time lovastatin Allergy Unknown Verified 07/25/22 14:43 rosuvastatin [From Crestor] Allergy Unknown Verified 07/25/22 14:43 simvastatin Allergy Unknown Verified 07/25/22 14:43 Current Medications Generic Name Dose Route Start Last Admin Trade Name Freq PRN Reason Stop Dose Admin Allopurinol 100 mg 07/21/22 09:00 07/21/22 08:40 Allopurinol 100 Mg Tablet PO 100 mg DAILY BEVERLY Administration Aspirin 81 mg 07/21/22 09:00 07/21/22 08:40 Aspirin 81 Mg Ec Tablet PO 81 mg DAILY BEVERLY Administration Atorvastatin Calcium 80 mg 07/21/22 09:00 07/21/22 08:40 Atorvastatin 40 Mg Tablet PO 80 mg DAILY BEVERLY Administration Docusate Sodium 200 mg 07/21/22 09:00 07/21/22 17:53 Docusate Sodium 100 Mg Capsule PO Not Given BID BEVERLY Ezetimibe 10 mg 07/21/22 09:00 07/21/22 08:40 Ezetimibe 10 Mg Tablet PO 10 mg DAILY BEVERLY Administration Enoxaparin Sodium 100 mg 07/20/22 23:00 07/21/22 22:08 Enoxaparin 100 Mg/Ml Syringe SUBCUT 100 mg Q12H BEVERLY Administration Gabapentin 300 mg 07/21/22 09:00 07/21/22 17:56 Gabapentin 300 Mg Capsule PO 300 mg BID BEVERLY Administration Hydrochlorothiazide 25 mg 07/21/22 06:00 07/22/22 05:12 Hydrochlorothiazide 25 Mg Tablet PO 25 mg QAM [facility] Administration Insulin Glargine 65 unit 07/21/22 06:00 07/22/22 06:03 Insulin Glargine 100 Units/1 Ml SUBCUT 65 unit QAM [facility] Administration Insulin Human Lispro 0 unit 07/21/22 08:00 07/21/22 20:47 Insulin Lispro 100 Unit/1 Ml SUBCUT Not Given WM&BEDTIME [facility] Protocol Lisinopril 20 mg 07/21/22 06:00 07/22/22 05:12 Lisinopril 20 Mg Tablet PO 20 mg QAM [facility] Administration Metoprolol Succinate 25 mg 07/21/22 09:00 07/21/22 08:54 Metoprolol Succinate Er (24 Hr) 25 Mg Tablet PO 25 mg DAILY BEVERLY Administration Ondansetron HCl 4 mg 07/20/22 22:21 07/21/22 06:38 Ondansetron 2 Mg/Ml Sdv 2 Ml IVP 4 mg Q8H PRN Administration vomiting, or N/V if npo Oseltamivir Phosphate 75 mg 07/21/22 09:00 07/21/22 17:56 Oseltamivir Phosphate 75 Mg Capsule PO 75 mg BID BEVERLY Administration Pantoprazole Sodium 40 mg 07/21/22 09:00 07/21/22 08:[address] 40 Mg Tablet PO 40 mg DAILY BEVER[facility] Administration Paroxetine HCl 40 mg 07/21/22 09:00 07/21/22 08:40 Paroxetine 20 Mg Tablet PO 40 mg DAILY BEVER[facility] Administration Sodium Bicarbonate 650 mg 07/21/22 09:00 07/21/22 17:56 Sodium Bicarbonate 650 Mg Tablet PO 650 mg BID BEVER[facility] Administration Tamsulosin HCl 0.4 mg 07/21/22 18:00 07/21/22 17:56 Tamsulosin 0.4 Mg Capsule PO 0.4 mg QPM BEVERLY Administration PFSH Acute PFSH: Medical History (Updated 08/05/22 @ 20:25 by Royer Dennison M.D) Chronic atrial fibrillation Essential hypertension Surgical History Hx of CABG Family History Other Family history of premature coronary artery disease Stroke Social History Smoking and tobacco status: former smoker Vitals/I&O/Wt Last Vital Signs Temp 97.8 F 07/22/22 08:00 Pulse 62 07/22/22 08:00 Resp 16 07/22/22 08:00 BP 144/76 07/22/22 08:00 Pulse Ox 96 07/22/22 08:00 O2 Del Method 07/22/22 08:00 07/21/22 07/22/22 07/22/22 22:59 06:59 14:59 Intake Total 370.82 / 730.82 480 / 1210.82 360 / 360 Balance 370.82 / 730.82 480 / 1210.82 360 / 360 Weight last 48 hrs Weight 234 lb 3.2 oz Weight 225 lb Physical Exam Narrative: GENERAL: Patient is alert, awake and oriented x3. [] NECK: No jugular vein distension. [] HEENT: No cyanosis. No icterus. No pallor. [] HEART: Regular S1 and S2. No murmur, rub or gallop. [] LUNGS: Clear to auscultate bilaterally. [] ABDOMEN: Soft CENTRAL NERVOUS SYSTEM: Grossly nonfocal. [] EXTREMITIES: Lower extremities with 1+ edema bilaterally. Pulses palpable in the lower extremities, both dorsalis pedis and posterior tibial. [] Data 07/22/22 03:15 07/22/22 03:15 Micro: Microbiology 07/20/22 14:34 Blood Culture - Preliminary Blood NEGATIVE TO DATE 07/20/22 14:34 Blood Culture - Preliminary Blood NEGATIVE TO DATE A&P Assessment and plan (1) Troponin level elevated: (2) Hx of CABG: (3) Atrial fibrillation: Plan Patient's troponin elevation is likely secondary to demand ischemia. He denies any chest pain. We will recommend stress test as outpatient. He is chest pain- free now. Echo does not show any LV dysfunction. Patient has converted back to normal sinus rhythm Given renal dysfunction, hold diuretic/DAVONTE inhibitor therapy for now. Can be restarted as outpatient Thank you for involving us with care of this patient. Please call with question Consult Attestations Medical Necessity Statement: Care expected to cross 2 midnights Coding Level of Care Code Acute [place] for Zechariah Kaur Diagnoses Troponin level elevated R77.8 Hx of CABG Z95.1 Atrial fibrillation I48.91
[2022-07-22] MEDS: magnesium sulfate premix 4 GM/100 ML PREMIX IV (09:20)
[2022-07-22] MEDS: gabapentin 300 mg Capsule PO ×2 (09:21→17:07)
[2022-07-22] MEDS: allopurinol 100 mg Tablet PO (09:21)
[2022-07-22] MEDS: ezetimibe 10 mg Tablet PO (09:21)
[2022-07-22] MEDS: amiodarone 200 mg Tablet 400 MG PO (09:21)
[2022-07-22] MEDS: metoprolol succinate ER (24 HR) 25 mg Tablet PO (09:21)
[2022-07-22] MEDS: atorvastatin 40 mg Tablet 80 MG PO (09:21)
[2022-07-22] MEDS: aspirin 81 mg EC Tablet PO (09:22)
[2022-07-22] MEDS: PARoxetine 20 mg Tablet 40 MG PO (09:22)
[2022-07-22] MEDS: pantoprazole DR 40 mg Tablet PO (09:22)
[2022-07-22] MEDS: sodium bicarbonate 650 mg Tablet PO ×2 (09:22→17:07)
[2022-07-22] MEDS: oseltamivir phosphate 75 mg Capsule PO ×2 (09:22→17:07)
[2022-07-22] MEDS: insulin lispro 100 unit/1 mL SUBCUT ×2 (11:43→20:44)
[2022-07-22] MEDS: enoxaparin 100 mg/mL Syringe SUBCUT ×2 (11:43→22:29)
[2022-07-22 11:49] LABS: Glucose Point of Care 166 mg/dL (70-110)
--- NOTE | 2022-07-22 16:18 | PM.PN ---
Subjective Subjective: Patient was seen this morning, he is still on 2 L, complains of shortness of breath with exertion, no chest pain Vitals/I&O/Wt Last Vital Signs Temp 98.1 F 07/22/22 15:35 Pulse 62 07/22/22 15:35 Resp 18 07/22/22 15:35 BP 124/66 07/22/22 15:35 Pulse Ox 97 07/22/22 15:35 O2 Del Method 07/22/22 15:35 07/22/22 07/22/22 07/22/22 06:59 14:59 22:59 Intake Total 480 / 1210.82 700 / 700 Output Total 750 / 750 Balance 480 / 1210.82 -50 / -50 Weight last 48 hrs Weight 106.231 kg Physical Exam Const: COMMON NORMALS: no acute distress and patient oriented x3 Resp: COMMON NORMALS: normal respiratory effort, No retractions and No use of accessory muscles AUSCULTATION: crackles and wheezes Cardio: COMMON NORMALS: regular rate, regular rhythm, S1 normal heart sound present and S2 normal heart sound present RATE: regular rate RHYTHM: regular rhythm HEART SOUNDS: S1 normal heart sound present and S2 normal heart sound present GI: COMMON NORMALS: Normal to inspection, nondistended, normoactive bowel sounds present and non-tender Extremity: COMMON NORMALS: no pedal edema Neuro: COMMON NORMALS: patient oriented x3 Psych: COMMON NORMALS: mental status grossly normal Data 07/22/22 03:15 07/22/22 03:15 Micro: Microbiology 07/20/22 14:34 Blood Culture - Preliminary Blood NEGATIVE TO DATE 07/20/22 14:34 Blood Culture - Preliminary Blood NEGATIVE TO DATE A&P Assessment and plan (1) Atrial fibrillation with rapid ventricular response: Switch to p.o. amiodarone Continue metoprolol 25 mg po daily Switch to Eliquis tomorrow morning (2) Influenza A: Continue Tamiflu 750 mg po BID x 5 days CXR without gross consolidation at this time Supplemental 02 to keep sat 92% (3) NSTEMI (non-ST elevated myocardial infarction): Elevated troponin with 6 hr delta at 19 Denies curent chest pain May be type 2 SC from RVR and CHF Asa 81mg po daily to continue Continue lovenox 1mg/kg s/c q12h, discontinue tomorrow switch back to Eliquis Technically limited quality echocardiogram because of poor ?ultrasonic windows. ?LV systolic function is grossly normal ?Left atrium is dilated ?Mitral valve is thickened.? Mild mitral regurgitation ?Trace tricuspid regurgitation ?Mild pulmonic regurgitation ?Compared to prior echocardiogram from 04/2019, no significant ?changes are seen (4) CHF (congestive heart failure): lasix 20mg iv x 1 now, monitor for urine output and renal function, titrate based on both Attestations Medical Necessity Statement*: Patient requires hospitalization for influenza A, NSTEMI, fluid overload Coding Level of Care Code Acute [employer] for [facility] Fwd Diagnoses Atrial fibrillation with rapid ventricular response I48.91 Influenza A J10.1 NSTEMI (non-ST elevated myocardial infarction) I21.4 CHF (congestive heart failure) I50.9
[2022-07-22 16:36] LABS: Glucose Point of Care 126 mg/dL (70-110)
[2022-07-22] MEDS: FUROsemide 10 mg/mL SDV 4mL 40 MG IVP (17:06)
[2022-07-22] MEDS: tamsulosin 0.4 mg Capsule PO (17:07)
[2022-07-22 20:36] LABS: Glucose Point of Care 141 mg/dL (70-110)
[2022-07-23] VITALS (9 sets, daily range): BP systolic 102–124; BP diastolic 55–74; PULSE 56–63; RESP 18–22; TEMP 36.3–36.9; O2SAT 92–97
[2022-07-23 05:21] LABS: Basophils % 0.5 %; Eosinophils # 0.1 10^3/uL (0.0-0.8); Eosinophils % 1.9 %; Hematocrit 39.7 % (42.0-52.0); Lymphocytes # 1.8 10^3/uL (0.8-4.8); Mean Corpuscular HGB Conc 32.7 g/dL (30.0-36.0); Mean Corpuscular Hemoglobin 29.7 pg (28.0-34.0); Mean Corpuscular Volume 90.6 fl (80-94); Monocytes # 0.7 10^3/uL (0.2-0.9); Monocytes % 10.7 %; Neutrophils # 3.64 10^3/uL (1.8-7.7); Neutrophils % 58.4 %; Nucleated Red Blood Cells % 0 %; Platelet Count 145 10^3/cmm (130-400); Red Blood Count 4.38 10^6/uL (4.1-5.3); Red Cell Distribution Width 12.5 % (12.1-15.1); White Blood Count 6.2 10^3/uL (4.0-10.0)
[2022-07-23 05:41] LABS: Alanine Aminotransferase 36 U/L (0-41); Albumin Level 3.5 g/dL (3.5-5.2); Alkaline Phosphatase 99 U/L (40-130); Anion Gap 15.2 (5-19); Aspartate Amino Transferase 29 U/L (0-40); Blood Urea Nitrogen 38 mg/dL (8-23); Calcium 8.8 mg/dL (8.5-10.5); Carbon Dioxide 29 mmol/L (22-29); Chloride 95 mmol/L (98-107); Globulin 3.4 g/dL (1.3-4.6); Glucose 137 mg/dL (65-115); Osmolality Calculated 291 mOsm/kg (285-295); Phosphorus 4.4 mg/dL (2.5-4.5); Potassium 4.2 mmol/L (3.5-5.1); Sodium 135 mmol/L (136-145); Total Bilirubin 0.5 mg/dL (0.15-1.2); Total Protein 6.9 g/dL (6.6-8.7)
[2022-07-23] MEDS: lisinopril 20 mg Tablet PO (06:07)
[2022-07-23] MEDS: hydroCHLOROthiazide 25 mg Tablet PO (06:07)
[2022-07-23] MEDS: insulin glargine 100 units/1 mL 65 UNIT SUBCUT (06:07)
[2022-07-23 06:25] LABS: Glucose Point of Care 128 mg/dL (70-110)
[2022-07-23] MEDS: sodium bicarbonate 650 mg Tablet PO (07:59)
[2022-07-23] MEDS: ezetimibe 10 mg Tablet PO (07:59)
[2022-07-23] MEDS: aspirin 81 mg EC Tablet PO (07:59)
[2022-07-23] MEDS: atorvastatin 40 mg Tablet 80 MG PO (07:59)
[2022-07-23] MEDS: PARoxetine 20 mg Tablet 40 MG PO (08:00)
[2022-07-23] MEDS: oseltamivir phosphate 75 mg Capsule PO (08:00)
[2022-07-23] MEDS: gabapentin 300 mg Capsule PO (08:00)
[2022-07-23] MEDS: metoprolol succinate ER (24 HR) 25 mg Tablet PO (08:00)
[2022-07-23] MEDS: pantoprazole DR 40 mg Tablet PO (08:00)
[2022-07-23] MEDS: allopurinol 100 mg Tablet PO (08:00)
[2022-07-23] MEDS: amiodarone 200 mg Tablet 400 MG PO (08:01)
--- NOTE | 2022-07-23 09:57 | PC.SOCIAL ---
IMM update IMM updated with patient. Verbalized an understanding. Copy Pg 2 provided. Initialled, dated, timed, and placed in chart.
--- NOTE | 2022-07-23 09:58 | PM.DCS ---
Discharge Providers Date of Admission: 07/20/22 18:20 Date of Discharge: July 23, 2022 Attending Provider at Admission: Skyler Hui MD Attending Provider at Discharge: Kevin Boggs MD Diagnoses at Discharge Discharge Diagnosis (1) Atrial fibrillation with rapid ventricular response: Status: Acute (2) Influenza A: Status: Acute (3) NSTEMI (non-ST elevated myocardial infarction): Status: Acute (4) CHF (congestive heart failure): Status: Acute Reason for Visit Reason for Visit: SOB, congestion Hospital Course Hospital Course Jonathan Baker is a 72 year old male with PMH CAD s/p CABG, chronic A fib, HTN, presenting with 3-4 javed of fever, cough and chest discomfort. Patient was admitted to [facility] for A. fib, managed on amiodarone drip, switch to p.o. amiodarone. Discharged on a tapering dose of amiodarone to 200 mg once daily, and metoprolol 25 mg once daily follow-up with cardiology Patient was diagnosed with influenza A, received oxygen therapy, Tamiflu, discharged with Tamiflu Patient had elevated troponins during his hospitalization, echocardiogram showed left ventricular systolic function was grossly normal, given his fluid positivity, incentive otology, decision was made to forego stress testing during this hospitalization. Follow-up with cardiology in 1 month for decision on pursuing cardiac stress testing If he were to have any recurrent chest pain to go to emergency room For his diastolic CHF exacerbation, he received diuresis overall clinically improved, his edema improved, but his creatinine on discharge was 2.0. Advised hold off on diuresis, hold his DAVONTE and hydrochlorothiazide until his kidney functions rechecked, his glipizide dose was decreased in half Physical Exam Const: COMMON NORMALS: no acute distress and patient oriented x3 Resp: COMMON NORMALS: normal respiratory effort, No retractions, No use of accessory muscles and clear to auscultation bilaterally AUSCULTATION: clear to auscultation bilaterally Cardio: COMMON NORMALS: regular rate, regular rhythm, S1 normal heart sound present and S2 normal heart sound present RATE: regular rate RHYTHM: regular rhythm HEART SOUNDS: S1 normal heart sound present and S2 normal heart sound present GI: COMMON NORMALS: Normal to inspection, nondistended, normoactive bowel sounds present and non-tender Extremity: COMMON NORMALS: no pedal edema Neuro: COMMON NORMALS: patient oriented x3 Psych: COMMON NORMALS: mental status grossly normal Discharge Data Studies Completed and Pending Completed Studies During Hospitalization Category Date Time Status CT chest wo con [id number] Stat Cat Scan 07/20/22 15:02 Completed XR chest 1V portable [id number] Stat Exams 07/20/22 14:14 Completed CV. echo complete* [id number] Routine Ultrasound 07/21/22 07:00 Completed Pending at discharge Category Date Time Status Blood Culture Stat Lab 07/20/22 14:34 Results Complete Blood Count w/Auto AM LABS Lab 07/24/22 04:00 Ordered Comprehensive Metabolic Panel AM LABS Lab 07/24/22 04:00 Ordered Magnesium AM LABS Lab 07/24/22 04:00 Ordered Phosphorus AM LABS Lab 07/24/22 04:00 Ordered Radiology Impressions Chest X-Ray 07/20/22 14:14 IMPRESSION: 1. Findings suspicious for very small pneumothorax of the left lower lobe estimated at 5% or slightly less. There is also pleural effusion bordering the left lung. 2. Areas of plaque atelectasis in the mid and lower left lung. Chest CT 07/20/22 15:02 IMPRESSION: No evidence for a pneumothorax. There are nodules in the right middle and left upper lobes of the lung which appear new when compared with 05/15/2019.For patients at low risk (minimal or absent history of smoking and of other known risk factors), recommend CT Chest at 3-6 months, then consider CT Chest at 18-24 months. For patients at high risk (history of smoking or of other known risk factors), recommend CT Chest at 3-6 months, then CT Chest at 18-24 months. (Reference: Maricruz) References: Maricruz Hagan, et al. Guidelines for Management of Incidental Pulmonary Nodules Detected on CT Images: From the Fleischner Society 2017. Radiology. 2017;284(1):228-243. COMMENTS: 1. Consistent with the [employer]'s Incidental Findings Committee white paper (J Am Alis Radiol 2018): Any incidental renal lesion less than 1 cm or classified as too small to characterize, or any incidental cystic renal lesion characterized as simple-appearing, is likely benign. No follow-up imaging is recommended for these lesions per consensus recommendations based on imaging criteria. 2. Consistent with the [employer]'s Incidental Findings Committee white paper (J Am Alis Radiol 2015): In patients aged 35 years and older with an incidental thyroid nodule equal to or greater than 1.[address], MRI or extrathyroidal US, further evaluation with dedicated thyroid US is recommended for patients with normal life expectancy and without comorbidities. For smaller nodules without suspicious features, no further evaluation or follow up is recommended. Laboratory Results WBC 6.2 10^3/uL (4.0-10.0) 07/23/22 04:36 RBC 4.38 10^6/uL (4.1-5.3) 07/23/22 04:36 Hgb 13.0 g/dL (11.7-16.6) 07/23/22 04:36 Hct 39.7 % (42.0-52.0) L 07/23/22 04:36 MCV 90.6 fl (80-94) 07/23/22 04:36 MCH 29.7 pg (28.0-34.0) 07/23/22 04:36 MCHC 32.7 g/dL (30.0-36.0) 07/23/22 04:36 RDW 12.5 % (12.1-15.1) 07/23/22 04:36 Plt Count 145 10^3/cmm (130-400) 07/23/22 04:36 MPV 11.0 fL (7.4-10.4) H 07/23/22 04:36 Neut % (Auto) 58.4 % 07/23/22 04:36 Lymph % (Auto) 28.0 % 07/23/22 04:36 [place] % (Auto) 10.7 % 07/23/22 04:36 Eos % (Auto) 1.9 % 07/23/22 04:36 Baso % (Auto) 0.5 % 07/23/22 04:36 Neut # (Auto) 3.64 10^3/uL (1.8-7.7) 07/23/22 04:36 Lymph # (Auto) 1.8 10^3/uL (0.8-4.8) 07/23/22 04:36 [place] # (Auto) 0.7 10^3/uL (0.2-0.9) 07/23/22 04:36 Eos # (Auto) 0.1 10^3/uL (0.0-0.8) 07/23/22 04:36 Baso # (Auto) 0.0 10^3/uL (0.0-0.1) 07/23/22 04:36 Nucleated RBC % (auto) 0 % 07/23/22 04:36 Nucleated RBCs # 0.0 /100WBC 07/23/22 04:36 Sodium 135 mmol/L (136-145) L 07/23/22 04:36 Potassium 4.2 mmol/L (3.5-5.1) 07/23/22 04:36 Chloride 95 mmol/L (98-107) L 07/23/22 04:36 Carbon Dioxide 29 mmol/L (22-29) 07/23/22 04:36 Anion Gap 15.2 (5-19) 07/23/22 04:36 BUN 38 mg/dL (8-23) H 07/23/22 04:36 Creatinine 2.0 mg/dL (0.7-1.2) H 07/23/22 04:36 GFR Calculation Not Reportable 07/23/22 04:36 Glucose 137 mg/dL (65-115) H 07/23/22 04:36 POC Glucose 128 mg/dL (70-110) H 07/23/22 06:20 Calculated Osmolality 291 mOsm/kg (285-295) 07/23/22 04:36 Lactic Acid 3.9 mmol/L (0.5-2.2) H 07/20/22 14:15 Lactate 1.1 mmol/L (0.5-2.2) 07/21/22 02:42 Calcium 8.8 mg/dL (8.5-10.5) 07/23/22 04:36 Phosphorus 4.4 mg/dL (2.5-4.5) 07/23/22 04:36 Magnesium 2.0 mg/dL (1.7-2.3) 07/23/22 04:36 Total Bilirubin 0.5 mg/dL (0.15-1.2) 07/23/22 04:36 AST 29 U/L (0-40) 07/23/22 04:36 ALT 36 U/L (0-41) 07/23/22 04:36 Alkaline Phosphatase 99 U/L (40-130) 07/23/22 04:36 Troponin T Baseline 172 ng/L (0-15) H* 07/20/22 14:15 Troponin T 120 Minute 167.2 ng/L (0-15) H 07/20/22 16:21 Delta Troponin T -4.8 ABS# (0-10) L 07/20/22 16:21 Troponin T Hi Sens 6Hr 191.2 ng/L (0-15) H 07/20/22 19:55 Troponin T Hi Sens 6Hr Delta 19.2 ng/L (0-12) H* 07/20/22 19:55 NT-Pro-B Natriuret Pep 3509 pg/mL (0-125) H 07/20/22 14:15 Total Protein 6.9 g/dL (6.6-8.7) 07/23/22 04:36 Albumin 3.5 g/dL (3.5-5.2) 07/23/22 04:36 Globulin 3.4 g/dL (1.3-4.6) 07/23/22 04:36 Procalcitonin 0.21 ng/mL (0-0.5) 07/20/22 14:15 TSH 2.65 uIU/mL (0.27-4.20) 07/20/22 14:15 Nasal Influ A H1 2009 PCR Detected (NOT DETECT) A 07/20/22 17:33 Coronavirus 229E (PCR) Not detected (NOT DETECT) 07/20/22 14:20 Influenza A (H1) PCR Not detected (NOT DETECT) 07/20/22 17:33 Influenza A (H3) PCR Not detected (NOT DETECT) 07/20/22 17:33 Influenza Type A (PCR) Detected (NOT DETECT) A 07/20/22 17:33 Influenza Type B (PCR) Not detected (NOT DETECT) 07/20/22 17:33 SARS-CoV-2 (PCR) Not detected (NOT DETECT) 07/20/22 14:20 Vitals Last Vital Signs Temp 97.8 F 07/23/22 07:28 Pulse 56 L 07/23/22 07:28 Resp 21 H 07/23/22 07:28 BP 113/66 07/23/22 07:28 Pulse Ox 97 07/23/22 07:28 O2 Del Method 07/22/22 15:35 Discharge Plan Discharge Patient Disposition: Home Condition: Stable Prescriptions: New oseltamivir [Tamiflu] 30 mg capsule 30 mg PO BID 2 Days Qty: 4 0RF amiodarone [Pacerone] 200 mg Tablet See Rx Instructions .ROUTE .COMPLEX 30 Days Qty: 60 0RF Rx Instructions: 2 tab once a day for one week, then decrease to one tab once a day Continued aspirin [Adult Low Dose Aspirin] 81 mg tablet,delayed release (DR/EC) 81 mg PO DAILY ezetimibe 10 mg tablet 10 mg PO DAILY gabapentin 600 mg Tablet 300 mg PO BID insulin glargine 100 unit/mL Solution 65 unit SUBCUT QAM cromolyn 5.2 mg/spray (4 %) [place],Non-Aerosol 1 spray INTRANASAL DAILY PRN (Reason: unknown) Fish Oil Concentrate 1,000 mg Capsule 1,000 mg PO BID Zyrtec 10 mg Tablet 10 mg PO DAILY metoprolol succinate 50 mg Tablet Extended Release 24 Hr 25 mg PO DAILY allopurinol 100 mg Tablet 100 mg PO DAILY Flomax 0.4 mg Capsule 0.4 mg PO QPM sodium bicarbonate 650 mg Tablet 650 mg PO BID Colace 100 mg Capsule 200 mg PO BID Rx Instructions: hold for loose stool Paxil 40 mg Tablet 40 mg PO DAILY rosuvastatin 40 mg Tablet 20 mg PO DAILY Vitamin D3 25 mcg (1,000 unit) Tablet 75 mcg PO DAILY Eliquis 5 mg Tablet 5 mg PO BID Changed glipizide 10 mg tablet 5 mg PO DAILY 30 Days Qty: 0 0RF Held lisinopril-hydrochlorothiazide 10-12.5 mg Tablet 2 tab PO QAM Hold Instructions: Resume on 07/30/22. hold until recheck kidney function Discharge Orders: Discharge Order (Routine); Ordered 07/23/22 Ordered By: Kevin Boggs Referrals: Krysta Vaughn MD [Referring] - Royer Dennison M.D [Physician] - 2 weeks Discharge Diet: Cardiac Discharge Activity: Resume usual activity Patient Instructions: Amiodarone (By mouth) (Cordarone, Pacerone), Oseltamivir (By mouth) (Tamiflu), Heart Attack (DC), A-fib (Atrial Fibrillation) (DC), CHF Stoplight, Opioid Safety Discharge Attestations Time Spent in Discharge Care*: less than 30 min Quality Metrics Clinical Quality Measures [ No reported AMI, CVA or VTE this stay] Coding Level of Care Code Acute Chg FW DC note Diagnoses Atrial fibrillation with rapid ventricular response I48.91 Influenza A J10.1 NSTEMI (non-ST elevated myocardial infarction) I21.4 CHF (congestive heart failure) I50.9
--- NOTE | 2022-07-23 11:01 | PC.NURSE ---
meds to bed
== END 2022-07-23 12:41 | disposition home or self-care (01) | DRG 280 ==
LOC: ER 17:54 → CSU 18:20
PROVIDERS: Student in an Organized Health Care Education/Training Program; Admitting Provider Student in an Organized Health Care Education/Training Program; Emergency Provider Emergency Medicine; Visit Provider Family Medicine
DX: I48.20 Chronic atrial fibrillation, unspecified (principal); I50.31 Acute diastolic (congestive) heart failure; I21.4 Non-ST elevation (NSTEMI) myocardial infarction; J10.1 Influenza due to other identified influenza virus with other respiratory manifestations; I25.10 Atherosclerotic heart disease of native coronary artery without angina pectoris; Z95.1 Presence of aortocoronary bypass graft; I11.0 Hypertensive heart disease with heart failure; Z87.891 Personal history of nicotine dependence; Z79.82 Long term (current) use of aspirin; Z79.01 Long term (current) use of anticoagulants; Z79.4 Long term (current) use of insulin
CPT/HCPCS: 36415; 36416; 71045; 71250; 80053; 82962; 83605; 83735; 83880; 84100; 84145; 84443; 84484; 85025; 87040; 87631; 87635; 93005; 93306; 94760; 96365; 96366; 96367; 96372; 96375; 96376; 97165; 99285; J0282; J1160; J1650; J1815; J1940; J2405; J3475; J3490; J7030; J7060

== ENCOUNTER 2022-07-25 12:59 | Inpatient (IN) | payer OTHER, SELFPAY ==
[2022-07-25] VITALS (11 sets, daily range): BP systolic 135–140; BP diastolic 69–80; PULSE 72–82; RESP 12–24; TEMP 36.8–37.3; O2SAT 89–96; BMI 32.3
--- NOTE | 2022-07-25 14:17 | XRR_ITS ---
PROCEDURE INFORMATION: Exam: XR Chest Exam date and time: 07/25/2022 2:35 PM Age: 72 years old Clinical indication: Shortness of breath; Additional info: SOB TECHNIQUE: Imaging protocol: Radiologic exam of the chest. Views: 2 views. COMPARISON: CT chest con [id number] 07/20/2022 3:42 PM FINDINGS: Lungs: Ill-defined curvilinear opacities in the left mid and lower lung. Pleural spaces: Left costophrenic blunting likely reflects sequela of left basilar scarring. No evident pleural effusion. No pneumothorax. Heart/Mediastinum: No cardiomegaly. Bones/joints: Sternotomy wires noted. Visualized osseous structures are intact. XR/XR chest 2V* [id number] IMPRESSION: Ill-defined curvilinear opacities in the left mid and lower lung. There was extensive scarring in this region on prior CT. This may reflect the radiographic appearance of these findings, however, superimposed infiltrates in these regions are not excluded.
--- NOTE | 2022-07-25 14:21 | W.ED.SOB ---
HPI - SOB/Dyspnea General: Chief Complaint: Shortness of Breath/Dyspnea Stated Complaint: irregular hr sob Time Seen by Provider: 07/25/22 13:54 History of Present Illness: HPI Narrative: 72-year-old male presents emergency department chief complaint of progressive shortness of breath difficulty breathing patient reports he was just recently released from the hospital on this last Saturday as he has new diagnoses A. fib with RVR non-STEMI as well as a influenza a with pneumonia patient was subsequently discharged home which is presents to the ER today with family because increased shortness of breath and difficulty breathing he had earlier last night. Patient has no known prior history of COPD he does report having a longstanding history of smoking however he quit many years ago. Patient does report a moderate productive cough reports she was discharged on home oxygen. He reports in the early hours of this morning his saturations were in the high 70s which prompted him to come to the ER for further assessment and management. Patient does not recall having any prior cardiac issues he reports he is on new medications for his heart. Patient currently does not report having any palpitations or chest discomfort with his shortness of breath. Associated symptoms: Deny abdominal pain, chest pain, extremity pain, fever(s), nausea, palpitations or vomiting Review of Systems General: Reports: 10 or more systems reviewed and unremarkable except in HPI and below Const: Denies: fever(s), chills, fatigue or malaise Eyes: Denies: change in vision or blurry vision Card: Denies: chest pain or palpitations Resp: Reports: dyspnea, productive cough and wheezing GI: Denies: abdominal pain, nausea or vomiting : Denies: flank pain Musc: Denies: extremity pain or extremity swelling Skin/Breast: Denies: rash or pruritus Neuro: Denies: headache(s) Psych: Denies: anxiety or depression Nilson/Lymph: Denies: easy bleeding All/Imm: Denies: urticaria, throat swelling or facial swelling PFSH ED PFSH: Medical History (Updated 07/25/22 @ 17:18 by Gerardo Chaudhari) Chronic atrial fibrillation Essential hypertension Surgical History Hx of CABG Family History Other Family history of premature coronary artery disease Stroke Social History Smoking and tobacco status: former smoker Physical Exam Const: COMMON NORMALS: no acute distress, patient oriented x3 and healthy appearing HENMT: COMMON NORMALS: normocephalic and atraumatic HEAD & SCALP: normocephalic and atraumatic Eye: COMMON NORMALS: Equal, round and reactive pupils present and EOMs intact bilaterally PUPIL: Yes Equal, round and reactive pupils present Neck/C-Spine: COMMON NORMALS: full ROM, supple and no JVD Lymph: LYMPHATIC: no lymphadenopathy noted Chest: COMMONS NORMALS: normal inspection of the chest and normal palpation of entire chest wall Resp: OTHER: Obvious crackles rhonchi and wheezing noted on exam bilaterally moderate tachypnea apparent Cardio: COMMON NORMALS: no JVD, regular rate and regular rhythm RATE: regular rate RHYTHM: regular rhythm GI: COMMON NORMALS: Normal to inspection, nondistended, normoactive bowel sounds present, Soft to palpation and non-tender INSPECTION: Yes normal to inspection PALPATION: Yes Soft to palpation : COMMON NORMALS: Yes no CVA tenderness BLADDER/KIDNEY EXAM: Yes no CVA tenderness Back/Pelvis: COMMON NORMALS: no CVA tenderness Extremity: COMMON NORMALS: normal to inspection and full ROM Neuro: COMMON NORMALS: patient oriented x3, CN's II-XII intact bilaterally, moves all extremities and no focal motor deficits Psych: COMMON NORMALS: mental status grossly normal, Normal thought process present, cooperative and normal affect THOUGHT PROCESS: Normal thought process present Skin: COMMON NORMALS: no rashes or lesions noted GENERAL SKIN EXAM: no rashes or lesions noted Course Vital Signs: Vital signs: Vital Signs Temperature 99.2 F 07/25/22 13:31 Pulse Rate 75 07/25/22 14:43 Respiratory Rate 16 07/25/22 14:41 Pulse Oximetry 93 07/25/22 14:41 Oxygen Delivery Me thod 07/25/22 14:41 MDM - SOB/Dyspnea Medical Decision Making Due to the patient's symptoms and condition lab work and imaging will be obtained patient does appear to be in acute heart failure elevated troponin as well as acute renal failure possible underlying atypical pneumonia most likely viral based patient's saturations are still low 90s requiring oxygen supplementation at this time I think is best will advise the patient be admitted to the hospital discussed patient's case with Dr. Boggs in regards to admission patient admitted for further eval. Lab Data 07/25/22 15:20 07/25/22 15:20 Labs/Radiology: Radiology Impressions Chest X-Ray 07/25/22 14:17 IMPRESSION: Ill-defined curvilinear opacities in the left mid and lower lung. There was extensive scarring in this region on prior CT. This may reflect the radiographic appearance of these findings, however, superimposed infiltrates in these regions are not excluded. Laboratory Results WBC 14.9 10^3/uL (4.0-10.0) H 07/25/22 15:20 RBC 4.63 10^6/uL (4.1-5.3) 07/25/22 15:20 Hgb 13.8 g/dL (11.7-16.6) 07/25/22 15:20 Hct 41.6 % (42.0-52.0) L 07/25/22 15:20 MCV 89.8 fl (80-94) 07/25/22 15:20 MCH 29.8 pg (28.0-34.0) 07/25/22 15:20 MCHC 33.2 g/dL (30.0-36.0) 07/25/22 15:20 RDW 12.4 % (12.1-15.1) 07/25/22 15:20 Plt Count 171 10^3/cmm (130-400) 07/25/22 15:20 MPV 11.1 fL (7.4-10.4) H 07/25/22 15:20 Neut % (Auto) 84.3 % 07/25/22 15:20 Lymph % (Auto) 9.0 % 07/25/22 15:20 [place] % (Auto) 5.8 % 07/25/22 15:20 Eos % (Auto) 0.0 % 07/25/22 15:20 Baso % (Auto) 0.2 % 07/25/22 15:20 Neut # (Auto) 12.54 10^3/uL (1.8-7.7) H 07/25/22 15:20 Lymph # (Auto) 1.3 10^3/uL (0.8-4.8) 07/25/22 15:20 [place] # (Auto) 0.9 10^3/uL (0.2-0.9) 07/25/22 15:20 Eos # (Auto) 0.0 10^3/uL (0.0-0.8) 07/25/22 15:20 Baso # (Auto) 0.0 10^3/uL (0.0-0.1) 07/25/22 15:20 Nucleated RBC % (auto) 0 % 07/25/22 15:20 Nucleated RBCs # 0.0 /100WBC 07/25/22 15:20 Sodium 128 mmol/L (136-145) L 07/25/22 15:20 Potassium 4.1 mmol/L (3.5-5.1) 07/25/22 15:20 Chloride 90 mmol/L (98-107) L 07/25/22 15:20 Carbon Dioxide 24 mmol/L (22-29) 07/25/22 15:20 Anion Gap 18.1 (5-19) 07/25/22 15:20 BUN 40 mg/dL (8-23) H 07/25/22 15:20 Creatinine 2.4 mg/dL (0.7-1.2) H 07/25/22 15:20 GFR Calculation Not Reportable 07/25/22 15:20 Glucose 208 mg/dL (65-115) H 07/25/22 15:20 Calculated Osmolality 282 mOsm/kg (285-295) L 07/25/22 15:20 Lactic Acid 2.6 mmol/L (0.5-2.2) H 07/25/22 15:20 Calcium 8.9 mg/dL (8.5-10.5) 07/25/22 15:20 Total Bilirubin 0.7 mg/dL (0.15-1.2) 07/25/22 15:20 AST 32 U/L (0-40) 07/25/22 15:20 ALT 46 U/L (0-41) H 07/25/22 15:20 Alkaline Phosphatase 113 U/L (40-130) 07/25/22 15:20 Troponin T Baseline 179 ng/L (0-15) H* 07/25/22 15:20 NT-Pro-B Natriuret Pep 1817 pg/mL (0-125) H 07/25/22 15:20 Total Protein 7.2 g/dL (6.6-8.7) 07/25/22 15:20 Albumin 3.7 g/dL (3.5-5.2) 07/25/22 15:20 Globulin 3.5 g/dL (1.3-4.6) 07/25/22 15:20 Discharge Plan Discharge Patient Disposition: Admitted As Inpatient Clinical Impression: Acute renal failure, Congestive heart failure, Primary atypical pneumonia, Influenza A Condition: Stable Prescriptions: No Action aspirin [Adult Low Dose Aspirin] 81 mg tablet,delayed release (DR/EC) 81 mg PO DAILY ezetimibe 10 mg tablet 10 mg PO DAILY glipizide 10 mg tablet 5 mg PO QPM Glucerna Shake Liquid 1 ea PO BID gabapentin 600 mg Tablet 300 mg PO BID insulin glargine 100 unit/mL Solution 65 unit SUBCUT QAM cromolyn 5.2 mg/spray (4 %) Brooks,Non-Aerosol 1 spray INTRANASAL DAILY PRN (Reason: unknown) omega-3 fatty acids 1,000 mg Capsule 1,000 mg PO BID cetirizine [Zyrtec] 10 mg Tablet 10 mg PO DAILY metoprolol succinate 50 mg Tablet Extended Release 24 Hr 25 mg PO DAILY allopurinol 100 mg Tablet 100 mg PO DAILY tamsulosin [Flomax] 0.4 mg Capsule 0.4 mg PO QPM sodium bicarbonate 650 mg Tablet 650 mg PO BID docusate sodium [Colace] 100 mg Capsule 200 mg PO BID Rx Instructions: hold for loose stool lisinopril-hydrochlorothiazide 10-12.5 mg Tablet 2 tab PO QAM Hold Instructions: Resume on 07/30/22. hold until recheck kidney function paroxetine HCl [Paxil] 40 mg Tablet 40 mg PO DAILY rosuvastatin 40 mg Tablet 20 mg PO DAILY cholecalciferol (vitamin D3) [Vitamin D3] 25 mcg (1,000 unit) Tablet 75 mcg PO DAILY Eliquis 5 mg Tablet 5 mg PO BID amiodarone [Pacerone] 200 mg Tablet See Rx Instructions .ROUTE .COMPLEX 30 Days Qty: 60 0RF Rx Instructions: 2 tab once a day for one week, then decrease to one tab once a day Coding Level of Care Code ED Emergency Services Director for [facility] Fwd Exam Comprehensive
[2022-07-25] MEDS: ipratropium-albuterol 3 mL Neb INHALATION ×2 (14:41→20:40)
[2022-07-25] MEDS: sodium chloride 0.9% 1,000 ML 100 ML IV (14:50)
--- NOTE | 2022-07-25 14:52 | ECG_ITS ---
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 Measurements Intervals [place] Rate: 72 P: 91 MI: 192 QRS: 41 QRSD: 102 T: 58 QT: 421 QTc: 463 Interpretive Statements SINUS RHYTHM INDETERMINATE AXIS LOW QRS VOLTAGE IN PRECORDIAL LEADS [QRS DEFLECTION < 1.0 mV IN CHEST LEADS] INCOMPLETE RIGHT BUNDLE BRANCH BLOCK [90+ ms QRS DURATION, TERMINAL R IN V1/V2, 40+ ms S IN I/aVL/V4/V5/V6] Compared to ECG 07/20/2022 23:26:46 Indeterminate axis now present ST (T wave) deviation no longer present Electronically Signed On 07-26-2022 12:33:21 ADDICTION THERAPIST by Petty Yoo M.D. [id number]
[2022-07-25] MEDS: magnesium sulfate premix 2 GM/50 ML PIGGYBACK IV (15:20)
[2022-07-25 15:32] LABS: Basophils % 0.2 %; Hematocrit 41.6 % (42.0-52.0); Hemoglobin 13.8 g/dL (11.7-16.6); Lymphocytes # 1.3 10^3/uL (0.8-4.8); Mean Corpuscular HGB Conc 33.2 g/dL (30.0-36.0); Mean Corpuscular Hemoglobin 29.8 pg (28.0-34.0); Mean Corpuscular Volume 89.8 fl (80-94); Mean Platelet Volume 11.1 fL (7.4-10.4); Monocytes # 0.9 10^3/uL (0.2-0.9); Monocytes % 5.8 %; Neutrophils # 12.54 10^3/uL (1.8-7.7); Neutrophils % 84.3 %; Nucleated Red Blood Cells % 0 %; Platelet Count 171 10^3/cmm (130-400); Red Blood Count 4.63 10^6/uL (4.1-5.3); Red Cell Distribution Width 12.4 % (12.1-15.1); White Blood Count 14.9 10^3/uL (4.0-10.0)
[2022-07-25 15:55] LABS: Lactic Sepsis W/Reflex 2.6 mmol/L (0.5-2.2)
[2022-07-25 16:04] LABS: Troponin(5th) Baseline 179 ng/L (0-15)
[2022-07-25 16:05] LABS: Alanine Aminotransferase 46 U/L (0-41); Albumin Level 3.7 g/dL (3.5-5.2); Alkaline Phosphatase 113 U/L (40-130); Anion Gap 18.1 (5-19); Aspartate Amino Transferase 32 U/L (0-40); Blood Urea Nitrogen 40 mg/dL (8-23); Calcium 8.9 mg/dL (8.5-10.5); Carbon Dioxide 24 mmol/L (22-29); Chloride 90 mmol/L (98-107); Globulin 3.5 g/dL (1.3-4.6); Glucose 208 mg/dL (65-115); NT Pro B Type Natriuretic Pept 1817 pg/mL (0-125); Osmolality Calculated 282 mOsm/kg (285-295); Potassium 4.1 mmol/L (3.5-5.1); Sodium 128 mmol/L (136-145); Total Bilirubin 0.7 mg/dL (0.15-1.2); Total Protein 7.2 g/dL (6.6-8.7)
--- NOTE | 2022-07-25 16:18 | ECG_ITS ---
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 Measurements Intervals [place] Rate: 72 P: 0 AK: 0 QRS: 38 QRSD: 106 T: 70 QT: 413 QTc: 453 Interpretive Statements SUPRAVENTRICULAR RHYTHM INDETERMINATE AXIS LOW QRS VOLTAGE IN PRECORDIAL LEADS [QRS DEFLECTION < 1.0 mV IN CHEST LEADS] INCOMPLETE RIGHT BUNDLE BRANCH BLOCK [90+ ms QRS DURATION, TERMINAL R IN V1/V2, 40+ ms S IN I/aVL/V4/V5/V6] ABNORMAL RHYTHM ECG Compared to ECG 07/25/2022 14:52:12 Supraventricular rhythm now present Sinus rhythm no longer present Electronically Signed On 07-26-2022 12:47:42 MALWARE ANALYST by Petty Yoo M.D. [id number]
[2022-07-25 17:14] LABS: Reflex Lactate Order REFLEX LACTIC ORDERD
[2022-07-25 17:20] LABS: C Reactive Protein 111.5 mg/L (0.0-4.9)
--- NOTE | 2022-07-25 17:26 | PM.HP ---
Providers/Chief Complaint Chief Complaint: irregular hr sob History of Present Illness Jonathan Baker is a 72 year old male with PMH CAD s/p CABG, chronic A fib, HTN, presenting with 3-4 days of cough, shortness of breath. Patient recently was admitted to [facility] for flu A, CHF, NSTEMI he finished off his Tamiflu, no recurrent chest pain, no recurrent edema. However he continues to have shortness of breath, cough, productive, chest congestion, sinus congestion, poor appetite. He complains of shortness of breath with ambulation, no lightheadedness, no dizziness, no falls. Review of Systems Const: Reports: body aches and change in appetite; Denies: fever(s) Card: Denies: chest pain Resp: Reports: dyspnea and productive cough GI: Denies: abdominal pain Medications/Allergies Home Medications Medication Instructions Recorded Confirmed Last Taken Type aspirin 81 mg tablet,delayed 81 mg PO DAILY 10/14/19 07/25/22 07/25/22 History release (Adult Low Dose Aspirin) ezetimibe 10 mg tablet 10 mg PO DAILY 10/14/19 07/25/22 07/25/22 History allopurinol 100 mg tablet 100 mg PO DAILY 07/20/22 07/25/22 07/25/22 History apixaban 5 mg tablet (Eliquis) 5 mg PO BID 07/20/22 07/25/22 07/25/22 History cetirizine 10 mg tablet (Zyrtec) 10 mg PO DAILY 07/20/22 07/25/22 07/25/22 History cholecalciferol (vitamin D3) 25 75 mcg PO DAILY 07/20/22 07/25/22 07/25/22 History mcg (1,000 unit) tablet (Vitamin D3) cromolyn 5.2 mg/spray (4 %) nasal 1 spray intranasal DAILY PRN 07/20/22 07/25/22 07/25/22 History spray unknown docusate sodium 100 mg capsule 200 mg PO BID 07/20/22 07/25/22 07/25/22 History (Colace) gabapentin 600 mg tablet 300 mg PO BID 07/20/22 07/25/22 07/25/22 History insulin glargine 100 unit/mL 65 unit SUBCUT QAM 07/20/22 07/25/22 07/25/22 History subcutaneous solution lisinopril 10 2 tab PO QAM 07/20/22 07/25/22 Unknown History mg-hydrochlorothiazide 12.5 mg tablet metoprolol succinate 50 mg 25 mg PO DAILY 07/20/22 07/25/22 07/25/22 History tablet,extended release 24 hr omega-3 fatty acids 1,000 mg 1,000 mg PO BID 07/20/22 07/25/22 07/25/22 History capsule paroxetine HCl 40 mg tablet (Paxil) 40 mg PO DAILY 07/20/22 07/25/22 07/25/22 History rosuvastatin 40 mg tablet 20 mg PO DAILY 07/20/22 07/25/22 07/25/22 History sodium bicarbonate 650 mg tablet 650 mg PO BID 07/20/22 07/25/22 07/25/22 History tamsulosin 0.4 mg capsule (Flomax) 0.4 mg PO QPM 07/20/22 07/25/22 07/24/22 History amiodarone 200 mg tablet (Pacerone) See Rx Instructions .Route 07/23/22 07/25/22 07/25/22 Rx .COMPLEX 30 days #60 tabs glipizide 10 mg tablet 5 mg PO QPM 07/25/22 07/25/22 07/24/22 History nut.tx.gluc.intol,lac-free,soy 1 ea PO BID 07/25/22 07/25/22 Unknown History (Glucerna Shake oral liquid) Allergies Allergy/AdvReac Type Severity Reaction Status Date / Time atorvastatin Allergy Unknown Verified 07/25/22 14:43 lovastatin Allergy Unknown Verified 07/25/22 14:43 rosuvastatin [From Crestor] Allergy Unknown Verified 07/25/22 14:43 simvastatin Allergy Unknown Verified 07/25/22 14:43 PFSH Acute PFSH: Medical History (Updated 07/25/22 @ 17:30 by Kevin Boggs MD) Chronic atrial fibrillation Essential hypertension Surgical History Hx of CABG Family History Other Family history of premature coronary artery disease Stroke Social History Smoking and tobacco status: former smoker Vitals/I&O/Wt Last Vital Signs Temp 99.2 F 07/25/22 13:31 Pulse 75 07/25/22 14:43 Resp 16 07/25/22 14:41 Pulse Ox 93 07/25/22 14:41 O2 Del Method 07/25/22 14:41 Weight last 48 hrs Weight 102.058 kg Physical Exam Const: COMMON NORMALS: no acute distress and patient oriented x3 HENMT: COMMON NORMALS: normocephalic HEAD & SCALP: normocephalic Eye: COMMON NORMALS: Equal, round and reactive pupils present and EOMs intact bilaterally Neck/C-Spine: COMMON NORMALS: no JVD Resp: COMMON NORMALS: normal respiratory effort, No retractions and No use of accessory muscles AUSCULTATION: crackles and wheezes Cardio: COMMON NORMALS: no JVD, regular rate, regular rhythm, S1 normal heart sound present and S2 normal heart sound present RATE: regular rate RHYTHM: regular rhythm HEART SOUNDS: S1 normal heart sound present and S2 normal heart sound present GI: COMMON NORMALS: Normal to inspection, nondistended, normoactive bowel sounds present, Soft to palpation, non-tender, no masses and no bruits PALPATION: Yes Soft to palpation Extremity: COMMON NORMALS: no calf tenderness and no pedal edema Neuro: COMMON NORMALS: patient oriented x3, CN's II-XII intact bilaterally and moves all extremities Psych: COMMON NORMALS: mental status grossly normal Data 07/25/22 15:20 07/25/22 15:20 A&P Assessment and plan (1) Secondary bacterial pneumonia: (2) Acute renal failure: (3) Congestive heart failure: (4) Primary atypical pneumonia: (5) Influenza A: (6) Chronic atrial fibrillation: (7) Essential hypertension: (8) Hyponatremia: Plan History of influenza A, treated with Tamiflu, now with secondary bacterial pneumonia -Monitored CSU -Rocephin and azithromycin -Sputum cultures, blood cultures -Pro-Balwinder, CRP -Full code -Lovenox for DVT prophylaxis Hyponatremia, likely secondary to respiratory losses, decreased appetite monitor FABI on CKD, creatinine up to 2.4, will continue to monitor hold off on fluids due to concerns for fluid overload NSTEMI serial EKGs serial troponins telemetry monitoring Atrial fibrillation continue Eliquis, continue metoprolol Elevated BNP, no evidence of fluid overload does have crackles on exam but will hold off on Lasix given elevated creatinine Insulin, low-dose sliding scale, Lantus 40 units every morning Attestations Medical Necessity Statement*: Patient requires hospitalization, outpatient with observation, for secondary bacterial pneumonia Coding Level of Care Code Acute Continuous Yarn Dyeing Machine Operator for [facility] Diagnoses Secondary bacterial pneumonia J15.9 Acute renal failure N17.9 Congestive heart failure I50.9 Primary atypical pneumonia J18.9 Influenza A J10.1 Chronic atrial fibrillation I48.20 Essential hypertension I10 Hyponatremia E87.1
[2022-07-25 17:27] LABS: Procalcitonin 0.95 ng/mL (0-0.5)
[2022-07-25 18:17] LABS: Lactic Acid level (Lactate) 1.6 mmol/L (0.5-2.2)
[2022-07-25 18:39] LABS: Troponin 5 2HR Delta -28.8 ABS# (0-10)
[2022-07-25 18:40] LABS: Troponin 5 2HR 150.2 ng/L (0-15)
[2022-07-25] MEDS: docusate sodium 100 mg Capsule 200 MG PO (19:38)
[2022-07-25] MEDS: tamsulosin 0.4 mg Capsule PO (19:38)
[2022-07-25] MEDS: sodium bicarbonate 650 mg Tablet PO (19:38)
[2022-07-25] MEDS: apixaban 5 mg Tablet PO (19:38)
[2022-07-25 20:08] LABS: Glucose Point of Care 221 mg/dL (70-110)
[2022-07-25] MEDS: pantoprazole 40 mg SDV IVP (20:27)
[2022-07-25] MEDS: guaiFENesin 600 mg Tablet PO (20:27)
[2022-07-25] MEDS: cefTRIAXone 1,000 MG in sodium chloride 0.9% (plus) 50 ML 100 MG IV (20:29)
[2022-07-25] MEDS: insulin lispro 100 unit/1 mL SUBCUT (20:34)
[2022-07-25] MEDS: budesonide 0.5 mg/2 mL Neb INHALATION (20:39)
[2022-07-25] MEDS: azithromycin 500 MG in sodium chloride 0.9% 250 ML 250 MG IV (20:59)
[2022-07-25 22:02] LABS: Adenovirus Not Detected (NOT DETECT); Chlamydia Pneumoniae Not Detected (NOT DETECT); Coronavirus 229E,HKU1,NL63,OC4 Not Detected (NOT DETECT); Human Metapneumovirus Not Detected (NOT DETECT); Human Rhinovirus/Enterovirus Not Detected (NOT DETECT); Influenza A Detected (NOT DETECT); Influenza A H1 Not Detected (NOT DETECT); Influenza A H1-2009 Detected (NOT DETECT); Influenza A H3 Not Detected (NOT DETECT); Influenza B Not Detected (NOT DETECT); Mycoplasma Pneumoniae Not Detected (NOT DETECT); Parainfluenza Virus Type 1 Not Detected (NOT DETECT); Parainfluenza Virus Type 2 Not Detected (NOT DETECT); Parainfluenza Virus Type 3 Not Detected (NOT DETECT); Parainfluenza Virus Type 4 Not Detected (NOT DETECT); Respiratory Syncytial Virus A Not Detected (NOT DETECT); Respiratory Syncytial Virus B Not Detected (NOT DETECT); SARS-COV-2 Not Detected (NOT DETECT)
[2022-07-25 22:22] LABS: NT Pro B Type Natriuretic Pept 1347 pg/mL (0-125)
[2022-07-26] VITALS (13 sets, daily range): BP systolic 134–175; BP diastolic 66–84; PULSE 72–95; RESP 16–21; TEMP 36.7–37.2; O2SAT 91–96
[2022-07-26 04:01] LABS: Basophils % 0.2 %; Hemoglobin 12.3 g/dL (11.7-16.6); Lymphocytes # 0.8 10^3/uL (0.8-4.8); Mean Corpuscular HGB Conc 33.2 g/dL (30.0-36.0); Mean Corpuscular Hemoglobin 29.8 pg (28.0-34.0); Mean Corpuscular Volume 89.6 fl (80-94); Mean Platelet Volume 10.2 fL (7.4-10.4); Monocytes # 0.4 10^3/uL (0.2-0.9); Monocytes % 3.2 %; Neutrophils # 11.42 10^3/uL (1.8-7.7); Neutrophils % 89.4 %; Nucleated Red Blood Cells % 0 %; Platelet Count 156 10^3/cmm (130-400); Red Blood Count 4.13 10^6/uL (4.1-5.3); Red Cell Distribution Width 12.5 % (12.1-15.1); White Blood Count 12.8 10^3/uL (4.0-10.0)
[2022-07-26 04:18] LABS: INR 1.38 (0.8-1.2)
[2022-07-26 04:32] LABS: Anion Gap 16.4 (5-19); Blood Urea Nitrogen 40 mg/dL (8-23); Calcium 8.6 mg/dL (8.5-10.5); Carbon Dioxide 24 mmol/L (22-29); Chloride 95 mmol/L (98-107); Chol HDL Ratio 1.89 mg/dL (1.0-5.00); Cholesterol 87 mg/dL (0-200); Glucose 261 mg/dL (65-115); HDL Cholesterol 46 mg/dL (60-100); LDL Cholesterol Calculated 28 mg/dL (50-129); LDL HDL Ratio 0.61 RATIO (0.00-3.22); Magnesium 2.1 mg/dL (1.7-2.3); Osmolality Calculated 291 mOsm/kg (285-295); Phosphorus 2.4 mg/dL (2.5-4.5); Potassium 4.4 mmol/L (3.5-5.1); Sodium 131 mmol/L (136-145); Thyroid Stimulating Hormone 0.44 uIU/mL (0.27-4.20); Triglycerides 65 mg/dL (0-150)
[2022-07-26 04:59] LABS: Estmated Average Glucose 143; Hemoglobin A1C 6.6 % (4.0-6.0)
[2022-07-26] MEDS: insulin glargine 100 units/1 mL 40 UNIT SUBCUT (06:25)
[2022-07-26 06:38] LABS: Glucose Point of Care 257 mg/dL (70-110)
[2022-07-26 07:32] LABS: Glucose Point of Care 227 mg/dL (70-110)
[2022-07-26] MEDS: apixaban 5 mg Tablet PO ×2 (08:05→17:15)
[2022-07-26] MEDS: guaiFENesin 600 mg Tablet PO ×2 (08:05→17:14)
[2022-07-26] MEDS: aspirin 81 mg EC Tablet PO (08:05)
[2022-07-26] MEDS: insulin lispro 100 unit/1 mL SUBCUT ×3 (08:05→17:17)
[2022-07-26] MEDS: allopurinol 100 mg Tablet PO (08:06)
[2022-07-26] MEDS: ezetimibe 10 mg Tablet PO (08:06)
[2022-07-26] MEDS: sodium bicarbonate 650 mg Tablet PO ×2 (08:06→17:14)
[2022-07-26] MEDS: cholecalciferol (vitamin D3) 1,000 unit Tablet 1000 UNIT PO (08:06)
[2022-07-26] MEDS: gabapentin 300 mg Capsule PO ×2 (08:06→17:14)
[2022-07-26] MEDS: atorvastatin 40 mg Tablet 80 MG PO (08:06)
[2022-07-26] MEDS: PARoxetine 20 mg Tablet 40 MG PO (08:06)
[2022-07-26] MEDS: amiodarone 200 mg Tablet 400 MG PO (08:09)
[2022-07-26] MEDS: docusate sodium 100 mg Capsule 200 MG PO ×2 (08:09→17:14)
[2022-07-26] MEDS: metoprolol succinate ER (24 HR) 50 mg Tablet 25 MG PO (08:12)
[2022-07-26] MEDS: budesonide 0.5 mg/2 mL Neb INHALATION ×2 (08:22→22:12)
[2022-07-26] MEDS: ipratropium-albuterol 3 mL Neb INHALATION ×4 (08:22→22:12)
[2022-07-26 11:34] LABS: Glucose Point of Care 180 mg/dL (70-110)
--- NOTE | 2022-07-26 11:46 | PM.PN ---
Subjective Subjective: Patient was seen this morning, he feels better, but still complains of wheezing, no history of smoking Vitals/I&O/Wt Last Vital Signs Temp 98.5 F 07/26/22 11:23 Pulse 81 07/26/22 11:23 Resp 18 07/26/22 11:23 BP 147/66 07/26/22 11:23 Pulse Ox 93 07/26/22 11:23 O2 Del Method 07/26/22 11:23 O2 Flow Rate 3 07/26/22 11:21 07/25/22 07/26/22 07/26/22 22:59 06:59 14:59 Intake Total 1830 / 1830 240 / 2070 480 / 480 Output Total 500 / 500 600 / 1100 Balance 1330 / 1330 -360 / 970 480 / 480 Weight last 48 hrs Weight 102.058 kg Physical Exam Const: COMMON NORMALS: no acute distress and patient oriented x3 Resp: COMMON NORMALS: normal respiratory effort, No retractions and No use of accessory muscles AUSCULTATION: wheezes Cardio: COMMON NORMALS: regular rate, regular rhythm, S1 normal heart sound present and S2 normal heart sound present RATE: regular rate RHYTHM: regular rhythm HEART SOUNDS: S1 normal heart sound present and S2 normal heart sound present GI: COMMON NORMALS: Normal to inspection, nondistended, normoactive bowel sounds present and non-tender Extremity: COMMON NORMALS: no pedal edema Neuro: COMMON NORMALS: patient oriented x3 Psych: COMMON NORMALS: mental status grossly normal Data 07/26/22 03:52 07/26/22 03:52 Micro: Microbiology 07/25/22 17:17 Blood Culture - Preliminary Blood SPECIMEN COLLECTED 07/25/22 17:10 Blood Culture - Preliminary Blood SPECIMEN COLLECTED A&P Assessment and plan (1) Secondary bacterial pneumonia: (2) Acute renal failure: (3) Congestive heart failure: (4) Primary atypical pneumonia: (5) Influenza A: (6) Chronic atrial fibrillation: (7) Essential hypertension: (8) Hyponatremia: Plan History of influenza A, treated with Tamiflu, now with secondary bacterial pneumonia -Monitored CSU -Rocephin and azithromycin -Sputum cultures, blood cultures -0.95 , CRP 111 -We will give a trial of Solu-Medrol -Budesonide, ipratropium -Full code -Lovenox for DVT prophylaxis Hyponatremia, likely secondary to respiratory losses, decreased appetite monitor FABI on CKD, creatinine up to 2.4, will continue to monitor hold off on fluids due to concerns for fluid overload NSTEMI serial EKGs serial troponins telemetry monitoring Atrial fibrillation continue Eliquis, continue metoprolol Elevated BNP, no evidence of fluid overload does have crackles on exam but will hold off on Lasix given elevated creatinine Insulin, low-dose sliding scale, Lantus 40 units every morning Attestations Medical Necessity Statement*: Patient requires hospitalization for secondary bacterial pneumonia Coding Level of Care Code Acute Measurement Technician for [facility] Fwd Diagnoses Secondary bacterial pneumonia J15.9 Acute renal failure N17.9 Congestive heart failure I50.9 Primary atypical pneumonia J18.9 Influenza A J10.1 Chronic atrial fibrillation I48.20 Essential hypertension I10 Hyponatremia E87.1
[2022-07-26 16:25] LABS: Glucose Point of Care 323 mg/dL (70-110)
[2022-07-26] MEDS: tamsulosin 0.4 mg Capsule PO (17:15)
[2022-07-26] MEDS: pantoprazole 40 mg SDV IVP (19:36)
[2022-07-26] MEDS: cefTRIAXone 1,000 MG in sodium chloride 0.9% (plus) 50 ML 100 MG IV (19:41)
[2022-07-26] MEDS: azithromycin 500 MG in sodium chloride 0.9% 250 ML 250 MG IV (20:25)
[2022-07-27] VITALS (63 sets, daily range): BP systolic 108–163; BP diastolic 57–79; PULSE 75–91; RESP 14–34; TEMP 36.6–37; O2SAT 92–96
[2022-07-27 02:12] LABS: Glucose Point of Care 379 mg/dL (70-110)
[2022-07-27 05:20] LABS: Basophils % 0.2 %; Hematocrit 36.6 % (42.0-52.0); Hemoglobin 11.7 g/dL (11.7-16.6); Lymphocytes # 0.7 10^3/uL (0.8-4.8); Lymphocytes % 5.3 %; Mean Corpuscular Hemoglobin 29.5 pg (28.0-34.0); Mean Corpuscular Volume 92.4 fl (80-94); Mean Platelet Volume 11.1 fL (7.4-10.4); Monocytes # 0.5 10^3/uL (0.2-0.9); Monocytes % 3.9 %; Neutrophils # 11.22 10^3/uL (1.8-7.7); Neutrophils % 88.7 %; Nucleated Red Blood Cells % 0 %; Platelet Count 201 10^3/cmm (130-400); Red Blood Count 3.96 10^6/uL (4.1-5.3); Red Cell Distribution Width 12.5 % (12.1-15.1); White Blood Count 12.6 10^3/uL (4.0-10.0)
[2022-07-27 05:47] LABS: Alanine Aminotransferase 106 U/L (0-41); Albumin Level 3.4 g/dL (3.5-5.2); Alkaline Phosphatase 112 U/L (40-130); Aspartate Amino Transferase 91 U/L (0-40); Blood Urea Nitrogen 47 mg/dL (8-23); Calcium 8.8 mg/dL (8.5-10.5); Carbon Dioxide 21 mmol/L (22-29); Chloride 96 mmol/L (98-107); Globulin 3.3 g/dL (1.3-4.6); Glucose 341 mg/dL (65-115); Osmolality Calculated 296 mOsm/kg (285-295); Sodium 130 mmol/L (136-145); Total Bilirubin 0.3 mg/dL (0.15-1.2); Total Protein 6.7 g/dL (6.6-8.7)
[2022-07-27] MEDS: insulin glargine 100 units/1 mL 40 UNIT SUBCUT (06:08)
[2022-07-27 06:35] LABS: Glucose Point of Care 338 mg/dL (70-110)
[2022-07-27] MEDS: amiodarone 200 mg Tablet 400 MG PO (08:09)
[2022-07-27] MEDS: metoprolol succinate ER (24 HR) 50 mg Tablet 25 MG PO (08:09)
[2022-07-27] MEDS: gabapentin 300 mg Capsule PO ×2 (08:09→17:00)
[2022-07-27] MEDS: atorvastatin 40 mg Tablet 80 MG PO (08:09)
[2022-07-27] MEDS: ezetimibe 10 mg Tablet PO (08:09)
[2022-07-27] MEDS: aspirin 81 mg EC Tablet PO (08:09)
[2022-07-27] MEDS: predniSONE 20 mg Tablet 40 MG PO (08:09)
[2022-07-27] MEDS: PARoxetine 20 mg Tablet 40 MG PO (08:09)
[2022-07-27] MEDS: docusate sodium 100 mg Capsule 200 MG PO ×2 (08:09→17:00)
[2022-07-27] MEDS: cholecalciferol (vitamin D3) 1,000 unit Tablet 1000 UNIT PO (08:09)
[2022-07-27] MEDS: allopurinol 100 mg Tablet PO (08:10)
[2022-07-27] MEDS: guaiFENesin 600 mg Tablet PO ×2 (08:10→17:00)
[2022-07-27] MEDS: apixaban 5 mg Tablet PO ×2 (08:10→17:00)
[2022-07-27] MEDS: sodium bicarbonate 650 mg Tablet PO ×2 (08:10→17:00)
[2022-07-27] MEDS: insulin lispro 100 unit/1 mL SUBCUT ×3 (08:10→17:00)
[2022-07-27] MEDS: budesonide 0.5 mg/2 mL Neb INHALATION ×2 (09:18→22:33)
[2022-07-27] MEDS: ipratropium-albuterol 3 mL Neb INHALATION ×4 (09:18→22:33)
--- NOTE | 2022-07-27 09:45 | PC.CHAP ---
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 re etcher visit [] Patient/Family/Request visit [] Outpatient visit [] Follow-up visit [] Physician referral [] Code/Alert [x] Routine visit [] Staff referral [] Actively dying [] Patient sleeping [] Family support [] [] Out of room [] Palliative care [] [x] Receiving care in room [] Pre-surgical visit [] Trauma [] Long length of stay [] ICU visit [] Other: Relational/Emotional Strength [x] Patient feels connected with others/family/visitors/staff [] Distress [] Loneliness/isolation [] Abandonment Spirituality of Patient [x] Person of Lizbeth [] Attends Congregational of their Lizbeth [x] Believes in Prayer [] Reads Bible or Druze materials [] There are Spiritual issues to be addressed Rn Psychiatric Interventions [x] Prayer [] Active listening [] Non-anxious presence [] Spiritual/emotional support [] Crisis/trauma care [] Spiritual counseling [] Bereavement support [] Provided bereavement packet [] Provided Bible/devotional materials [] Provided toy/stuffed animal, coloring book to patient or family member [] Provided Communion [] Anointing/[place] [] Salvation [] Completed spiritual assessment [] Other: Impact on Illness or Injury [] Angry [] Fearful [] Anxious [] Often cries [] Exhaustion [] Unable to work [] Unable to attend islam [] Unable to walk/stand [] Unable to read [] Unable to drive [] Unable to eat/drink [] Unable to sleep [] Unable to be with family [] Patient intubated [] Other: Summary Time spent with patient 10 min
[2022-07-27 11:16] LABS: Glucose Point of Care 295 mg/dL (70-110)
--- NOTE | 2022-07-27 12:47 | P.PN_ITS ---
Subjective Subjective: Patient was seen this morning he feels a lot better, still have some wheezing, he is worried about going home too early Vitals/I&O/Wt Last Vital Signs Temp 97.9 F 07/27/22 07:15 Pulse 79 07/27/22 12:23 Resp 18 07/27/22 12:23 BP 151/77 07/27/22 12:23 Pulse Ox 94 07/27/22 11:15 O2 Del Method 07/27/22 11:15 O2 Flow Rate 2 07/27/22 11:15 07/26/22 07/27/22 07/27/22 22:59 06:59 14:59 Intake Total 780 / 1740 400 / 2140 600 / 600 Output Total 600 / 600 Balance 780 / 1740 400 / 2140 0 / 0 Weight last 48 hrs Weight 102.058 kg Physical Exam Const: COMMON NORMALS: no acute distress and patient oriented x3 Resp: COMMON NORMALS: normal respiratory effort, No retractions and No use of accessory muscles AUSCULTATION: crackles and wheezes Cardio: COMMON NORMALS: regular rate, regular rhythm, S1 normal heart sound present and S2 normal heart sound present RATE: regular rate RHYTHM: regular rhythm HEART SOUNDS: S1 normal heart sound present and S2 normal heart sound present GI: COMMON NORMALS: Normal to inspection, nondistended, normoactive bowel sounds present and non-tender Extremity: COMMON NORMALS: no pedal edema Neuro: COMMON NORMALS: patient oriented x3 Psych: COMMON NORMALS: mental status grossly normal Data 07/27/22 04:23 07/27/22 04:23 Micro: Microbiology 07/25/22 17:17 Blood Culture - Preliminary Blood NEGATIVE TO DATE 07/25/22 17:10 Blood Culture - Preliminary Blood NEGATIVE TO DATE 07/25/22 22:02 Gram Stain - Final Sputum - Expectorated Sputum Sputum Culture - Preliminary A&P Assessment and plan (1) Secondary bacterial pneumonia: (2) Acute renal failure: (3) Congestive heart failure: (4) Primary atypical pneumonia: (5) Influenza A: (6) Chronic atrial fibrillation: (7) Essential hypertension: (8) Hyponatremia: Plan History of influenza A, treated with Tamiflu, now with secondary bacterial pneumonia -Monitored CSU -Rocephin and azithromycin -Sputum cultures, blood cultures -0.95 , CRP 111 -Continue prednisone -Budesonide, ipratropium -Full code -Lovenox for DVT prophylaxis Hyponatremia, likely secondary to respiratory losses, decreased appetite monitor FABI on CKD, creatinine up to 2.4, 1.9, will continue to monitor hold off on fluids due to concerns for fluid overload NSTEMI serial EKGs serial troponins telemetry monitoring Atrial fibrillation continue Eliquis, continue metoprolol Elevated BNP, no evidence of fluid overload does have crackles on exam but will hold off on Lasix given elevated creatinine Insulin, low-dose sliding scale, Lantus 40 units every morning, high-dose sliding scale Attestations Medical Necessity Statement*: Patient requires hospitalization for pneumonia Coding Level of Care Code Acute Catering And Events Manager for g Fwd Diagnoses Secondary bacterial pneumonia J15.9 Acute renal failure N17.9 Congestive heart failure I50.9 Primary atypical pneumonia J18.9 Influenza A J10.1 Chronic atrial fibrillation I48.20 Essential hypertension I10 Hyponatremia E87.1
[2022-07-27 16:49] LABS: Glucose Point of Care 264 mg/dL (70-110)
[2022-07-27] MEDS: tamsulosin 0.4 mg Capsule PO (17:00)
[2022-07-27] MEDS: cefTRIAXone 1,000 MG in sodium chloride 0.9% (plus) 50 ML 100 MG IV (19:37)
[2022-07-27] MEDS: azithromycin 500 MG in sodium chloride 0.9% 250 ML 250 MG IV (20:21)
[2022-07-27] MEDS: pantoprazole 40 mg SDV IVP (20:22)
[2022-07-28] VITALS (15 sets, daily range): BP systolic 125–162; BP diastolic 59–85; PULSE 73–88; RESP 12–26; TEMP 36.6–37.3; O2SAT 82–96
[2022-07-28 05:17] LABS: Basophils % 0.3 %; Hematocrit 36.6 % (42.0-52.0); Hemoglobin 11.8 g/dL (11.7-16.6); Lymphocytes % 6.4 %; Mean Corpuscular HGB Conc 32.2 g/dL (30.0-36.0); Mean Corpuscular Hemoglobin 29.4 pg (28.0-34.0); Mean Platelet Volume 10.7 fL (7.4-10.4); Monocytes # 1.1 10^3/uL (0.2-0.9); Monocytes % 7.2 %; Neutrophils # 12.36 10^3/uL (1.8-7.7); Neutrophils % 83.4 %; Nucleated Red Blood Cells % 0 %; Platelet Count 258 10^3/cmm (130-400); Red Blood Count 4.02 10^6/uL (4.1-5.3); Red Cell Distribution Width 12.7 % (12.1-15.1); White Blood Count 14.8 10^3/uL (4.0-10.0)
[2022-07-28 05:40] LABS: Alanine Aminotransferase 134 U/L (0-41); Albumin Level 3.4 g/dL (3.5-5.2); Alkaline Phosphatase 118 U/L (40-130); Anion Gap 12.8 (5-19); Aspartate Amino Transferase 83 U/L (0-40); Blood Urea Nitrogen 48 mg/dL (8-23); Calcium 8.9 mg/dL (8.5-10.5); Carbon Dioxide 26 mmol/L (22-29); Chloride 92 mmol/L (98-107); Globulin 3.2 g/dL (1.3-4.6); Glucose 328 mg/dL (65-115); Magnesium 1.8 mg/dL (1.7-2.3); Osmolality Calculated 287 mOsm/kg (285-295); Potassium 4.8 mmol/L (3.5-5.1); Sodium 126 mmol/L (136-145); Total Bilirubin 0.3 mg/dL (0.15-1.2); Total Protein 6.6 g/dL (6.6-8.7)
[2022-07-28] MEDS: insulin glargine 100 units/1 mL 40 UNIT SUBCUT (06:12)
[2022-07-28 07:44] LABS: Glucose Point of Care 281 mg/dL (70-110)
[2022-07-28 07:44] LABS: Glucose Point of Care 335 mg/dL (70-110)
[2022-07-28] MEDS: cholecalciferol (vitamin D3) 1,000 unit Tablet 1000 UNIT PO (08:02)
[2022-07-28] MEDS: atorvastatin 40 mg Tablet 80 MG PO (08:02)
[2022-07-28] MEDS: gabapentin 300 mg Capsule PO ×2 (08:02→17:21)
[2022-07-28] MEDS: sodium bicarbonate 650 mg Tablet PO ×2 (08:02→17:22)
[2022-07-28] MEDS: allopurinol 100 mg Tablet PO (08:02)
[2022-07-28] MEDS: insulin lispro 100 unit/1 mL SUBCUT ×4 (08:02→21:57)
[2022-07-28] MEDS: ezetimibe 10 mg Tablet PO (08:02)
[2022-07-28] MEDS: guaiFENesin 600 mg Tablet PO ×2 (08:02→17:21)
[2022-07-28] MEDS: metoprolol succinate ER (24 HR) 50 mg Tablet 25 MG PO (08:03)
[2022-07-28] MEDS: apixaban 5 mg Tablet PO ×2 (08:03→17:22)
[2022-07-28] MEDS: amiodarone 200 mg Tablet 400 MG PO (08:03)
[2022-07-28] MEDS: PARoxetine 20 mg Tablet 40 MG PO (08:03)
[2022-07-28] MEDS: docusate sodium 100 mg Capsule 200 MG PO ×2 (08:03→17:21)
[2022-07-28] MEDS: aspirin 81 mg EC Tablet PO (08:03)
[2022-07-28] MEDS: predniSONE 20 mg Tablet 40 MG PO (08:03)
[2022-07-28] MEDS: budesonide 0.5 mg/2 mL Neb INHALATION ×2 (08:11→21:40)
[2022-07-28] MEDS: ipratropium-albuterol 3 mL Neb INHALATION ×4 (08:11→21:41)
[2022-07-28 11:14] LABS: Glucose Point of Care 254 mg/dL (70-110)
--- NOTE | 2022-07-28 16:04 | P.PN_ITS ---
Subjective Subjective: Patient states that his breathing is better, however at the time of my assessment he continues to have wheezing bilaterally. Leukocytosis persisting at 14.8. Sodium at 126 today. Some degree of pseudohyponatremia because of blood sugar 328 at the time. Currently on supplemental oxygen 2 L/min at the time of my assessment. Medications: Reviewed: Yes Vitals/I&O/Wt Last Vital Signs Temp 98.2 F 07/28/22 07:00 Pulse 88 07/28/22 15:47 Resp 22 H 07/28/22 15:47 BP 159/82 07/28/22 15:47 Pulse Ox 96 07/28/22 15:47 O2 Del Method 07/28/22 15:40 O2 Flow Rate 2 07/28/22 15:40 07/28/22 07/28/22 07/28/22 06:59 14:59 22:59 Intake Total 480 / 1280 1260 / 1260 Balance 480 / 680 1260 / 1260 Physical Exam Narrative: General: No acute distress, AO x3 HEENT: PERRLA, pupils bilaterally equal and reactive, pallors not present Chest: Bilateral wheezing to auscultation anteriorly all areas. CVS: S1-S2 regular, no murmurs, no tachycardia, no gallops, no rubs Abdomen: Soft, nontender, no organomegaly, bowel sounds present Neuro: No focal deficits, no facial deformity, AO x3, power 5/5 in all limbs Extremities: No edema clubbing or cyanosis. Data 07/28/22 03:27 07/28/22 03:27 Micro: Microbiology 07/25/22 20:00 Bacterial Antigens - Final Urine,Voided 07/25/22 22:02 Gram Stain - Final Sputum - Expectorated Sputum Sputum Culture - Final A&P Assessment and plan (1) Secondary bacterial pneumonia: (2) Acute renal failure: (3) Congestive heart failure: (4) Primary atypical pneumonia: (5) Influenza A: (6) Chronic atrial fibrillation: (7) Essential hypertension: (8) Hyponatremia: Plan History of influenza A, treated with Tamiflu on admission between July 20 to July 23, now with secondary bacterial pneumonia, left lower lobe. -Currently on antibiotic treatment with Rocephin and azithromycin, pending sputum culture -Blood culture thus far with no growth. -Diffuse bilateral wheezing on auscultation, likely a component of viral bronchitis versus reactive airway disease triggered by the viral infection and current pneumonia. He is receiving scheduled nebulization with DuoNeb and budesonide. -Continue prednisone for short course of 5 days. -Noted to have persisting leukocytosis in the 14,000 range. Likely may be related to prednisone use. We will check MRSA nares. Patient is currently afebrile. What is the corrected sodium for a blood sugar of 328 corrected sodium Hyponatremia, likely secondary to respiratory losses, decreased appetite monitor. Corrected sodium this morning is 130. FABI on CKD, creatinine up to 2.4, currently stabilized at 1.8. NSTEMI serial EKGs serial troponins telemetry monitoring without significant delta's currently. Will likely need stress testing as an outpatient. On last admission further investigations were deferred in view of acute respiratory illness. Atrial fibrillation continue Eliquis, continue metoprolol Elevated BNP, no evidence of fluid overload does have crackles on exam but will hold off on Lasix given elevated creatinine Insulin,, Lantus 40 units every morning. Hemoglobin A1c of 6.6 is consistent with well-controlled diabetes as outpatient. Currently hyperglycemia likely from prednisone use. We will change his sliding scale to high-dose for now. Attestations Medical Necessity Statement*: Persisting leukocytosis, improving but persisting wheezes auscultation, check MRSA PCR, ongoing need for IV antibiotics. Coding Level of Care Code Acute Rib Stiffener And Heel Dipper for Zechariah Kaur Diagnoses Secondary bacterial pneumonia J15.9 Acute renal failure N17.9 Congestive heart failure I50.9 Primary atypical pneumonia J18.9 Influenza A J10.1 Chronic atrial fibrillation I48.20 Essential hypertension I10 Hyponatremia E87.1
[2022-07-28 17:22] LABS: Glucose Point of Care 268 mg/dL (70-110)
[2022-07-28] MEDS: tamsulosin 0.4 mg Capsule PO (17:22)
[2022-07-28] MEDS: cefTRIAXone 1,000 MG in sodium chloride 0.9% (plus) 50 ML 100 MG IV (19:34)
[2022-07-28] MEDS: pantoprazole 40 mg SDV IVP (20:32)
[2022-07-28] MEDS: azithromycin 500 MG in sodium chloride 0.9% 250 ML 250 MG IV (20:32)
[2022-07-28 21:25] LABS: Glucose Point of Care 312 mg/dL (70-110)
[2022-07-29] VITALS (14 sets, daily range): BP systolic 139–178; BP diastolic 76–98; PULSE 61–84; RESP 16–96; TEMP 36.7–37; O2SAT 92–95
[2022-07-29 04:25] LABS: Basophils % 0.4 %; Hematocrit 37.7 % (42.0-52.0); Hemoglobin 12.4 g/dL (11.7-16.6); Lymphocytes # 0.8 10^3/uL (0.8-4.8); Lymphocytes % 7.2 %; Mean Corpuscular HGB Conc 32.9 g/dL (30.0-36.0); Mean Corpuscular Hemoglobin 29.7 pg (28.0-34.0); Mean Corpuscular Volume 90.2 fl (80-94); Mean Platelet Volume 10.6 fL (7.4-10.4); Monocytes # 1.1 10^3/uL (0.2-0.9); Monocytes % 9.8 %; Neutrophils # 8.63 10^3/uL (1.8-7.7); Nucleated Red Blood Cells % 0 %; Platelet Count 253 10^3/cmm (130-400); Red Blood Count 4.18 10^6/uL (4.1-5.3); Red Cell Distribution Width 12.8 % (12.1-15.1); White Blood Count 11.2 10^3/uL (4.0-10.0)
[2022-07-29 04:36] LABS: Alanine Aminotransferase 119 U/L (0-41); Albumin Level 3.4 g/dL (3.5-5.2); Alkaline Phosphatase 102 U/L (40-130); Anion Gap 13.4 (5-19); Aspartate Amino Transferase 45 U/L (0-40); Blood Urea Nitrogen 38 mg/dL (8-23); Calcium 8.7 mg/dL (8.5-10.5); Carbon Dioxide 25 mmol/L (22-29); Chloride 92 mmol/L (98-107); Globulin 3.2 g/dL (1.3-4.6); Glucose 214 mg/dL (65-115); Magnesium 1.5 mg/dL (1.7-2.3); Osmolality Calculated 277 mOsm/kg (285-295); Potassium 4.4 mmol/L (3.5-5.1); Sodium 126 mmol/L (136-145); Total Bilirubin 0.4 mg/dL (0.15-1.2); Total Protein 6.6 g/dL (6.6-8.7)
[2022-07-29 05:07] LABS: Slide Review Slide Review Perform
[2022-07-29 05:53] LABS: Glucose Point of Care 185 mg/dL (70-110)
[2022-07-29] MEDS: insulin glargine 100 units/1 mL 40 UNIT SUBCUT (06:29)
[2022-07-29] MEDS: cholecalciferol (vitamin D3) 1,000 unit Tablet 1000 UNIT PO (08:09)
[2022-07-29] MEDS: ezetimibe 10 mg Tablet PO (08:10)
[2022-07-29] MEDS: allopurinol 100 mg Tablet PO (08:10)
[2022-07-29] MEDS: atorvastatin 40 mg Tablet 80 MG PO (08:10)
[2022-07-29] MEDS: sodium bicarbonate 650 mg Tablet PO ×2 (08:10→17:05)
[2022-07-29] MEDS: guaiFENesin 600 mg Tablet PO ×2 (08:11→17:05)
[2022-07-29] MEDS: docusate sodium 100 mg Capsule 200 MG PO ×2 (08:11→17:05)
[2022-07-29] MEDS: predniSONE 20 mg Tablet 40 MG PO (08:11)
[2022-07-29] MEDS: PARoxetine 20 mg Tablet 40 MG PO (08:11)
[2022-07-29] MEDS: amiodarone 200 mg Tablet 400 MG PO (08:11)
[2022-07-29] MEDS: aspirin 81 mg EC Tablet PO (08:11)
[2022-07-29] MEDS: gabapentin 300 mg Capsule PO ×2 (08:12→17:05)
[2022-07-29] MEDS: apixaban 5 mg Tablet PO ×2 (08:12→17:06)
[2022-07-29] MEDS: insulin lispro 100 unit/1 mL SUBCUT ×4 (08:13→20:33)
[2022-07-29] MEDS: metoprolol succinate ER (24 HR) 50 mg Tablet 25 MG PO (08:18)
[2022-07-29] MEDS: ipratropium-albuterol 3 mL Neb INHALATION ×4 (08:31→21:26)
[2022-07-29] MEDS: budesonide 0.5 mg/2 mL Neb INHALATION ×2 (08:31→21:26)
--- NOTE | 2022-07-29 11:17 | PC.SOCIAL ---
Imm update Imm updated with patient at bedside. Copy of page 2 provided. patient verbalized understanding. Copy in chart initialed, dated and timed.
[2022-07-29 12:07] LABS: Glucose Point of Care 174 mg/dL (70-110)
--- NOTE | 2022-07-29 12:42 | CTR_ITS ---
PROCEDURE INFORMATION: Exam: CT Chest Without Contrast; Diagnostic Exam date and time: 07/29/2022 2:41 PM Age: 72 years old Clinical indication: Shortness of breath; Prior surgery; Surgery type: Heart; Additional info: Post flu pneumonia, worsening dyspnea, ? empyema TECHNIQUE: Imaging protocol: Diagnostic computed tomography of the chest without contrast. Radiation optimization: All CT scans at this facility use at least one of these dose optimization techniques: automated exposure control; mA and/or kV adjustment per patient size (includes targeted exams where dose is matched to clinical indication); or iterative reconstruction. COMPARISON: CT chest con [id number] 07/20/2022 3:42 PM RADIATION DOSE METRICS: Total DLP (mGy-cm): 629.21 FINDINGS: Thyroid: Continued partially calcified enlargement of one or both thyroid glands: Non-emergent correlation with ultrasound and/or serum lab values is recommended to rule out goiter. Lungs: Interval appearance of ground-glass opacities throughout the right upper lobe and in the left lung base consistent with COVID-19 pneumonia versus other pneumonia. Slight increased size of 15 mm spiculated nodule in the right middle lobe most consistent with infectious process. Pleural spaces: Increased size of 2.4 and 2.1 cm pulmonary nodular areas of scarring with extension to the pleural surface most consistent with infectious process. Heart: Stable CABG procedure. Lymph nodes: Unremarkable. No enlarged lymph nodes. Vasculature: Calcification of the thoracic aorta and/or great vessels consistent with atherosclerotic vessel disease. Stable IVC filter. Calcification of the abdominal aorta and/or iliac arteries consistent with atherosclerotic vessel disease. Gallbladder and bile ducts: Stable cholecystectomy. Bones/joints: Unremarkable. No acute fracture. Soft tissues: Unremarkable. CT/CT chest [facility] [id number] IMPRESSION: 1. Continued partially calcified enlargement of one or both thyroid glands: Non-emergent correlation with ultrasound and/or serum lab values is recommended to rule out goiter. 2. Stable CABG procedure. 3. Stable IVC filter. 4. Interval appearance of ground-glass opacities throughout the right upper lobe and in the left lung base consistent with COVID-19 pneumonia versus other pneumonia. 5. Slight increased size of 15 mm spiculated nodule in the right middle lobe most consistent with infectious process. 6. Increased size of 2.4 and 2.1 cm pulmonary nodular areas of scarring with extension to the pleural surface most consistent with infectious process. 7. Follow-up CT scan 3 months following clinical resolution of pneumonia may be helpful for complete evaluation.
--- NOTE | 2022-07-29 13:11 | P.PN_ITS ---
Subjective Subjective: Patient feels subjectively more dyspneic today. States that he has been bringing up more phlegm than previously. Continues to be on 2 L/min supplemental O2. He has been afebrile. Medications: Reviewed: Yes Vitals/I&O/Wt Last Vital Signs Temp 98.6 F 07/29/22 11:28 Pulse 81 07/29/22 11:50 Resp 16 07/29/22 11:50 BP 139/76 07/29/22 11:28 Pulse Ox 93 07/29/22 11:50 O2 Del Method 07/29/22 11:50 O2 Flow Rate 2 07/29/22 11:50 07/28/22 07/29/22 07/29/22 22:59 06:59 14:59 Intake Total 1140 / 2400 480 / 2880 600 / 600 Balance 1140 / 2400 480 / 2880 600 / 600 Physical Exam Narrative: General: No acute distress, AO x3 HEENT: PERRLA, pupils bilaterally equal and reactive, pallors not present Chest: Reduced air entry but reduced air entry bilateral infrascapular areas. CVS: S1-S2 regular, no murmurs, no tachycardia, no gallops, no rubs Abdomen: Soft, nontender, no organomegaly, bowel sounds present Neuro: No focal deficits, no facial deformity, AO x3, power 5/5 in all limbs Extremities: No edema clubbing or cyanosis. Data 07/29/22 03:00 07/29/22 03:00 Micro: Microbiology 07/28/22 16:45 MRSA Culture - Final Nose A&P Assessment and plan (1) Secondary bacterial pneumonia: (2) Acute renal failure: (3) Congestive heart failure: (4) Primary atypical pneumonia: (5) Influenza A: (6) Chronic atrial fibrillation: (7) Essential hypertension: (8) Hyponatremia: Plan History of influenza A, treated with Tamiflu on admission between July 20 to July 23, now with secondary bacterial pneumonia, left lower lobe. -Currently on antibiotic treatment with Rocephin and azithromycin, pending sputum culture, gram stain polymicrobial. MRSA nares negative. Urine bacterial ag negative. -Blood culture thus far with no growth. -Diffuse bilateral wheezing on auscultation, likely a component of viral bronchitis versus reactive airway disease triggered by the viral infection and current pneumonia. He is receiving scheduled nebulization with DuoNeb and budesonide. -Continue prednisone for short course of 5 days. -leukocytosis improving today - c/o worsened dyspnea today though objectively not much change on labs. leukocytosis improving. No fever, He does have reduced air entry today b/L infrascapular areas which appears worse than previous exam. Will obtain Ct chest to evaluate for interim development of any complications such as empyema, complex effusions. low probability PE since he is on Eliquis FABI on CKD, creatinine up to 2.4, currently improved at 1.5 NSTEMI serial EKGs serial troponins telemetry monitoring without significant delta's currently. Will likely need stress testing as an outpatient. On last admission further investigations were deferred in view of acute respiratory illness. Will check troponin today. Atrial fibrillation continue Eliquis, continue metoprolol Elevated BNP, no evidence of fluid overload does have crackles on exam but will hold off on Lasix given elevated creatinine Insulin,, Lantus 40 units every morning. Hemoglobin A1c of 6.6 is consistent with well-controlled diabetes as outpatient. Currently hyperglycemia likely from prednisone use. We will change his sliding scale to high-dose for now. Blod sugar better today Attestations Medical Necessity Statement*: complains of worsening dyspnea today, needs further evaluation with CT chest, cardiac enzymes. Coding Level of Care Code Acute Cardiac Cath Technologist for Zechariah Kaur Diagnoses Secondary bacterial pneumonia J15.9 Acute renal failure N17.9 Congestive heart failure I50.9 Primary atypical pneumonia J18.9 Influenza A J10.1 Chronic atrial fibrillation I48.20 Essential hypertension I10 Hyponatremia E87.1
--- NOTE | 2022-07-29 13:17 | ECG_ITS ---
[facility] Test Date: 2022-07-29 Pat Name: Jonathan Baker Department: Room: 112 Gender: Male Note Teller: : 1950 Requested By: Sandrita Emerson Order Number: [id number] Jean MD: Petty Yoo M.D. Measurements Intervals [place] Rate: 80 P: 93 W[place]: 181 QRS: 28 QRSD: 103 T: 74 QT: 393 QTc: 455 Interpretive Statements SINUS RHYTHM LOW QRS VOLTAGE IN PRECORDIAL LEADS [QRS DEFLECTION < 1.0 mV IN CHEST LEADS] PATTERN CONSISTENT WITH PULMONARY DISEASE INCOMPLETE RIGHT BUNDLE BRANCH BLOCK [90+ ms QRS DURATION, TERMINAL R IN V1/V2, 40+ ms S IN I/aVL/V4/V5/V6] MINIMAL ST DEPRESSION [0.025+ mV ST DEPRESSION] Compared to ECG 07/25/2022 18:34:55 ST (T wave) deviation now present Supraventricular rhythm no longer present Indeterminate axis no longer present Electronically Signed On 07-30-2022 14:20:01 DYE AUTOMATION OPERATOR by Petty Yoo M.D. [id number]
[2022-07-29 14:30] LABS: Troponin(5th) Baseline 72 ng/L (0-15)
--- NOTE | 2022-07-29 15:28 | ECG_ITS ---
[facility] Test Date: 2022-07-29 Pat Name: Jonathan Baker Department: Room: 112 Gender: Male Price Clerk: : 1950 Requested By: Sandrita Emerson Order Number: [id number] Jean MD: Petty Yoo M.D. Measurements Intervals [place] Rate: 79 P: 93 [place]: 184 QRS: 165 QRSD: 101 T: 111 QT: 392 QTc: 451 Interpretive Statements SINUS RHYTHM INCOMPLETE RIGHT BUNDLE BRANCH BLOCK [90+ ms QRS DURATION, TERMINAL R IN V1/V2, 40+ ms S IN I/aVL/V4/V5/V6] LEFT POSTERIOR FASCICULAR BLOCK [QRS AXIS > 109, INFERIOR Q] Compared to ECG 07/29/2022 14:25:15 Left posterior fascicular block now present ST (T wave) deviation no longer present Electronically Signed On 07-31-2022 0:07:26 HIGH SCHOOL ENGLISH TEACHER by Petty Yoo M.D. [id number]
[2022-07-29 16:05] LABS: Coronavirus 229E,HKU1,NL63,OC4 Not Detected (NOT DETECT); SARS-COV-2 Not Detected (NOT DETECT)
[2022-07-29 16:28] LABS: Adenovirus Not Detected (NOT DETECT); Chlamydia Pneumoniae Not Detected (NOT DETECT); Human Metapneumovirus Not Detected (NOT DETECT); Human Rhinovirus/Enterovirus Not Detected (NOT DETECT); Influenza A Not Detected (NOT DETECT); Influenza A H1 Not Detected (NOT DETECT); Influenza A H1-2009 Not Detected (NOT DETECT); Influenza A H3 Not Detected (NOT DETECT); Influenza B Not Detected (NOT DETECT); Mycoplasma Pneumoniae Not Detected (NOT DETECT); Parainfluenza Virus Type 1 Not Detected (NOT DETECT); Parainfluenza Virus Type 2 Not Detected (NOT DETECT); Parainfluenza Virus Type 3 Not Detected (NOT DETECT); Parainfluenza Virus Type 4 Not Detected (NOT DETECT); Respiratory Syncytial Virus A Not Detected (NOT DETECT); Respiratory Syncytial Virus B Not Detected (NOT DETECT)
[2022-07-29 16:39] LABS: Glucose Point of Care 214 mg/dL (70-110)
[2022-07-29] MEDS: tamsulosin 0.4 mg Capsule PO (17:05)
[2022-07-29 17:39] LABS: Troponin 5 2HR 66.44 ng/L (0-15)
[2022-07-29 17:45] LABS: Troponin 5 2HR Delta -5.56 ABS# (0-10)
[2022-07-29 19:46] LABS: Glucose Point of Care 218 mg/dL (70-110)
[2022-07-29] MEDS: pantoprazole 40 mg SDV IVP (20:31)
[2022-07-29] MEDS: cefTRIAXone 1,000 MG in sodium chloride 0.9% (plus) 50 ML 100 MG IV (20:31)
[2022-07-29] MEDS: azithromycin 500 MG in sodium chloride 0.9% 250 ML 250 MG IV (20:39)
--- NOTE | 2022-07-29 21:19 | ECG_ITS ---
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 Measurements Intervals [place] Rate: 79 P: 89 IN: 187 QRS: 48 QRSD: 108 T: 74 QT: 404 QTc: 464 Interpretive Statements SINUS RHYTHM INCOMPLETE RIGHT BUNDLE BRANCH BLOCK [90+ ms QRS DURATION, TERMINAL R IN V1/V2, 40+ ms S IN I/aVL/V4/V5/V6] Compared to ECG 07/29/2022 15:28:04 Left posterior fascicular block no longer present Electronically Signed On 07-31-2022 0:09:36 POCKETED SPRING MACHINE OPERATOR by Petty Yoo M.D. [id number]
[2022-07-29 21:23] LABS: Troponin 5 6HR 58.69 ng/L (0-15)
[2022-07-29 21:27] LABS: Troponin 5 6HR Delta -13.31 ng/L (0-12)
[2022-07-30] VITALS (12 sets, daily range): BP systolic 117–157; BP diastolic 61–86; PULSE 71–86; RESP 13–18; TEMP 36.5–36.9; O2SAT 94–96
[2022-07-30] MEDS: insulin glargine 100 units/1 mL 40 UNIT SUBCUT (05:05)
[2022-07-30 06:22] LABS: Glucose Point of Care 119 mg/dL (70-110)
[2022-07-30] MEDS: PARoxetine 20 mg Tablet 40 MG PO (08:02)
[2022-07-30] MEDS: cholecalciferol (vitamin D3) 1,000 unit Tablet 1000 UNIT PO (08:02)
[2022-07-30] MEDS: docusate sodium 100 mg Capsule 200 MG PO ×2 (08:02→17:50)
[2022-07-30] MEDS: aspirin 81 mg EC Tablet PO (08:02)
[2022-07-30] MEDS: ezetimibe 10 mg Tablet PO (08:02)
[2022-07-30] MEDS: allopurinol 100 mg Tablet PO (08:02)
[2022-07-30] MEDS: gabapentin 300 mg Capsule PO ×2 (08:02→17:50)
[2022-07-30] MEDS: apixaban 5 mg Tablet PO ×2 (08:02→17:50)
[2022-07-30] MEDS: predniSONE 20 mg Tablet 40 MG PO (08:02)
[2022-07-30] MEDS: atorvastatin 40 mg Tablet 80 MG PO (08:03)
[2022-07-30] MEDS: sodium bicarbonate 650 mg Tablet PO ×2 (08:03→17:51)
[2022-07-30] MEDS: metoprolol succinate ER (24 HR) 50 mg Tablet 25 MG PO (08:03)
[2022-07-30] MEDS: guaiFENesin 600 mg Tablet PO ×2 (08:03→17:51)
[2022-07-30] MEDS: amiodarone 200 mg Tablet 400 MG PO (08:03)
[2022-07-30] MEDS: ipratropium-albuterol 3 mL Neb INHALATION ×4 (08:19→19:34)
[2022-07-30] MEDS: budesonide 0.5 mg/2 mL Neb INHALATION ×2 (08:19→19:34)
[2022-07-30 11:02] LABS: Glucose Point of Care 181 mg/dL (70-110)
[2022-07-30] MEDS: insulin lispro 100 unit/1 mL SUBCUT ×3 (12:40→20:26)
--- NOTE | 2022-07-30 15:21 | PM.PN ---
Subjective Subjective: Feeling slightly improved breathing today. He does have bilateral wheezing infrascapular areas, but also some crackles. CT of his chest did not reveal any empyema. interval appearance of groundglass opacities throughout the right upper lobe and left lung base, read by radiology as possible COVID-19 pneumonia versus other pneumonia. Respiratory viral swab came back negative. Afebrile Medications: Reviewed: Yes Vitals/I&O/Wt Last Vital Signs Temp 97.7 F 07/30/22 11:33 Pulse 73 07/30/22 11:33 Resp 17 07/30/22 11:33 BP 132/83 07/30/22 11:33 Pulse Ox 94 07/30/22 11:33 O2 Del Method 07/30/22 11:19 O2 Flow Rate 2 07/30/22 11:19 07/30/22 07/30/22 07/30/22 06:59 14:59 22:59 Intake Total 120 / 120 Balance 120 / 120 Physical Exam Narrative: General: No acute distress, AO x3 HEENT: PERRLA, pupils bilaterally equal and reactive, pallors not present Chest: Reduced air entry but reduced air entry bilateral infrascapular areas. CVS: S1-S2 regular, no murmurs, no tachycardia, no gallops, no rubs Abdomen: Soft, nontender, no organomegaly, bowel sounds present Neuro: No focal deficits, no facial deformity, AO x3, power 5/5 in all limbs Extremities: No edema clubbing or cyanosis. Data 07/29/22 03:00 07/29/22 03:00 A&P Assessment and plan (1) Secondary bacterial pneumonia: (2) Acute renal failure: (3) Congestive heart failure: (4) Primary atypical pneumonia: (5) Influenza A: (6) Chronic atrial fibrillation: (7) Essential hypertension: (8) Hyponatremia: Plan History of influenza A, treated with Tamiflu on admission between July 20 to July 23, now with secondary bacterial pneumonia, left lower lobe. -Currently on antibiotic treatment with Rocephin and azithromycin, sputum culture with no growth, gram stain polymicrobial. MRSA nares negative. Urine bacterial ag negative. -Blood culture thus far with no growth. -Diffuse bilateral wheezing on auscultation, likely a component of viral bronchitis versus reactive airway disease triggered by the viral infection and current pneumonia. He is receiving scheduled nebulization with DuoNeb and budesonide. Also with short course Prednisone. Will d/c prednisone today and monitor closely. - Ct on 07/29 negative for empyema, shows new B/L infiltrates, pneumonitis vs edema. Levetaed BNP but normal echo recently. However cannot exclude pulmonary karlene and volume overload, likely contributed by steroids. Will change atypical coverage to levaquin. Resp viral panel negative. FABI on CKD, creatinine up to 2.4, currently improved at 1.5 NSTEMI serial EKGs serial troponins telemetry monitoring without significant delta's currently. Will likely need stress testing as an outpatient. On last admission further investigations were deferred in view of acute respiratory illness. Will check troponin today. Atrial fibrillation continue Eliquis, continue metoprolol Elevated BNP, trial of 20mg iv lasix today. Insulin,, Lantus 40 units every morning. Hemoglobin A1c of 6.6 is consistent with well-controlled diabetes as outpatient. Currently hyperglycemia likely from prednisone use. We will change his sliding scale to high-dose for now. Blod sugar better today Attestations Medical Necessity Statement*: Trial of iv lasix, change abx, d/c steroids, monitor closely with thee changes Coding Level of Care Code Acute Air Brake Rigger for [facility] Fwd Diagnoses Secondary bacterial pneumonia J15.9 Acute renal failure N17.9 Congestive heart failure I50.9 Primary atypical pneumonia J18.9 Influenza A J10.1 Chronic atrial fibrillation I48.20 Essential hypertension I10 Hyponatremia E87.1
[2022-07-30] MEDS: FUROsemide 10 mg/mL SDV 2mL 20 MG IVP (16:42)
[2022-07-30 16:56] LABS: Glucose Point of Care 287 mg/dL (70-110)
--- NOTE | 2022-07-30 17:24 | PC.NURSE ---
This nurse agrees with all documentation and medication demonstrations by Student Nurse
[2022-07-30] MEDS: tamsulosin 0.4 mg Capsule PO (17:51)
[2022-07-30 20:00] LABS: Glucose Point of Care 311 mg/dL (70-110)
[2022-07-30] MEDS: pantoprazole 40 mg SDV IVP (20:26)
[2022-07-31] VITALS (12 sets, daily range): BP systolic 118–138; BP diastolic 68–79; PULSE 65–76; RESP 8–20; TEMP 36.2; O2SAT 87–97
[2022-07-31] MEDS: levoFLOXacin 500 mg Tablet PO (04:29)
[2022-07-31] MEDS: insulin glargine 100 units/1 mL 40 UNIT SUBCUT (04:29)
[2022-07-31 05:38] LABS: Basophils # 0.1 10^3/uL (0.0-0.1); Basophils % 0.9 %; Eosinophils # 0.1 10^3/uL (0.0-0.8); Eosinophils % 0.5 %; Hemoglobin 12.9 g/dL (11.7-16.6); Lymphocytes # 1.6 10^3/uL (0.8-4.8); Lymphocytes % 10.8 %; Mean Corpuscular HGB Conc 32.3 g/dL (30.0-36.0); Mean Corpuscular Hemoglobin 29.8 pg (28.0-34.0); Mean Corpuscular Volume 92.4 fl (80-94); Mean Platelet Volume 10.3 fL (7.4-10.4); Monocytes # 1.1 10^3/uL (0.2-0.9); Monocytes % 7.2 %; Neutrophils # 10.88 10^3/uL (1.8-7.7); Neutrophils % 73.3 %; Nucleated Red Blood Cells % 0 %; Platelet Count 285 10^3/cmm (130-400); Red Blood Count 4.33 10^6/uL (4.1-5.3); Red Cell Distribution Width 12.8 % (12.1-15.1); White Blood Count 14.8 10^3/uL (4.0-10.0)
[2022-07-31 06:10] LABS: Alanine Aminotransferase 146 U/L (0-41); Albumin Level 3.2 g/dL (3.5-5.2); Alkaline Phosphatase 96 U/L (40-130); Aspartate Amino Transferase 62 U/L (0-40); Blood Urea Nitrogen 39 mg/dL (8-23); Calcium 8.9 mg/dL (8.5-10.5); Carbon Dioxide 23 mmol/L (22-29); Chloride 98 mmol/L (98-107); Globulin 3.4 g/dL (1.3-4.6); Glucose 132 mg/dL (65-115); Magnesium 1.4 mg/dL (1.7-2.3); NT Pro B Type Natriuretic Pept 1945 pg/mL (0-125); Osmolality Calculated 287 mOsm/kg (285-295); Sodium 133 mmol/L (136-145); Total Bilirubin 0.5 mg/dL (0.15-1.2); Total Protein 6.6 g/dL (6.6-8.7)
[2022-07-31 06:12] LABS: Anion Gap 16.5 (5-19); Potassium 4.5 mmol/L (3.5-5.1)
[2022-07-31 06:47] LABS: Glucose Point of Care 160 mg/dL (70-110)
[2022-07-31] MEDS: ipratropium-albuterol 3 mL Neb INHALATION ×4 (08:31→20:50)
[2022-07-31] MEDS: budesonide 0.5 mg/2 mL Neb INHALATION ×2 (08:31→20:50)
[2022-07-31] MEDS: insulin lispro 100 unit/1 mL SUBCUT ×3 (08:39→20:26)
[2022-07-31] MEDS: ezetimibe 10 mg Tablet PO (08:42)
[2022-07-31] MEDS: cholecalciferol (vitamin D3) 1,000 unit Tablet 1000 UNIT PO (08:42)
[2022-07-31] MEDS: aspirin 81 mg EC Tablet PO (08:43)
[2022-07-31] MEDS: amiodarone 200 mg Tablet 400 MG PO (08:43)
[2022-07-31] MEDS: atorvastatin 40 mg Tablet 80 MG PO (08:43)
[2022-07-31] MEDS: allopurinol 100 mg Tablet PO (08:43)
[2022-07-31] MEDS: gabapentin 300 mg Capsule PO ×2 (08:43→17:58)
[2022-07-31] MEDS: docusate sodium 100 mg Capsule 200 MG PO ×2 (08:43→17:57)
[2022-07-31] MEDS: PARoxetine 20 mg Tablet 40 MG PO (08:43)
[2022-07-31] MEDS: sodium bicarbonate 650 mg Tablet PO ×2 (08:44→17:58)
[2022-07-31] MEDS: guaiFENesin 600 mg Tablet PO ×2 (08:44→17:58)
[2022-07-31] MEDS: metoprolol succinate ER (24 HR) 50 mg Tablet 25 MG PO (08:44)
[2022-07-31] MEDS: apixaban 5 mg Tablet PO ×2 (08:45→17:58)
--- NOTE | 2022-07-31 10:44 | PC.SOCIAL ---
IMM Updated Updated pt on IMM. No questions voiced. Provided pt a copy. Initialed, dated, & timed copy in chart.
[2022-07-31 11:59] LABS: Glucose Point of Care 149 mg/dL (70-110)
--- NOTE | 2022-07-31 13:04 | US_ITS ---
WS: [id number] RIGHT UPPER QUADRANT ULTRASOUND HISTORY: transaminitis COMPARISON: 09/03/2019 Liver: 16.1 cm in length. Mild coarse echotexture throughout the liver. No bile duct dilatation or ma ss. Portal Vein: Normal hepatopetal flow with monophasic waveform. Gallbladder: Status post cholecystectomy. CBD: 0.3 cm Pancreas: Completely obscured by bowel gas. Right kidney: 11.9 cm in length. Lower pole is limited. Otherwise negative. Aorta and IVC: Unremarkable abdominal aorta and IVC. No ascites. US/US liver [id number] IMPRESSION: 1. Limited quality evaluation of the RIGHT upper quadrant due to body habitus and bowel gas. 2. Prior cholecystectomy. 3. Hepatic steatosis.
[2022-07-31] MEDS: FUROsemide 10 mg/mL SDV 2mL 20 MG IVP (13:35)
[2022-07-31 16:53] LABS: Glucose Point of Care 125 mg/dL (70-110)
[2022-07-31] MEDS: tamsulosin 0.4 mg Capsule PO (17:58)
--- NOTE | 2022-07-31 18:54 | PM.PN ---
Subjective Subjective: States that breathing was improved after receiving Lasix last evening. His lungs are sounding much more clear today. Reduce crackles. BNP elevated, also with increasing LFTs after an initial period of improvement. Leukocytosis stable at 14.8. Medications: Reviewed: Yes Vitals/I&O/Wt Last Vital Signs Temp 97.1 F L 07/31/22 04:45 Pulse 68 07/31/22 16:00 Resp 16 07/31/22 16:00 BP 123/72 07/31/22 12:27 Pulse Ox 97 07/31/22 16:00 O2 Del Method 07/31/22 16:00 O2 Flow Rate 2 07/31/22 16:00 07/31/22 07/31/22 07/31/22 06:59 14:59 22:59 Intake Total 240 / 840 600 / 600 Output Total 350 / 350 Balance 240 / 840 600 / 600 -350 / 250 Physical Exam Narrative: General: No acute distress, AO x3 HEENT: PERRLA, pupils bilaterally equal and reactive, pallors not present Chest: Normal vesicular breath sounds, no added sounds, equal good air entry bilaterally CVS: S1-S2 regular, no murmurs, no tachycardia, no gallops, no rubs Abdomen: Soft, nontender, no organomegaly, bowel sounds present Neuro: No focal deficits, no facial deformity, AO x3, power 5/5 in all limbs Data 07/31/22 04:29 07/31/22 04:29 Micro: Microbiology 07/25/22 17:17 Blood Culture - Final Blood NO GROWTH AFTER 5 DAYS 07/25/22 17:10 Blood Culture - Final Blood NO GROWTH AFTER 5 DAYS A&P Assessment and plan (1) Secondary bacterial pneumonia: (2) Acute renal failure: (3) Congestive heart failure: (4) Primary atypical pneumonia: (5) Influenza A: (6) Chronic atrial fibrillation: (7) Essential hypertension: (8) Hyponatremia: Plan History of recent influenza A, treated with Tamiflu on admission between July 20 to July 23, now with secondary bacterial pneumonia, left lower lobe. -Treated with antibiotic treatment with Rocephin and azithromycin, sputum culture with no growth, gram stain polymicrobial. MRSA nares negative. Urine bacterial ag negative. -Blood culture thus far with no growth. -Diffuse bilateral wheezing on auscultation, likely a component of viral bronchitis versus reactive airway disease triggered by the viral infection and current pneumonia. He is receiving scheduled nebulization with DuoNeb and budesonide. Also with short course Prednisone.which has now been discontinued. Added acapella and incentive spirometer - Ct on 07/29 negative for empyema, shows new B/L infiltrates, pneumonitis vs edema. elevated BNP, trending up to 1900 now. Recent echo with poor visualization, normal systolic function, no comment on diastolic function, thickened mitral valve, mild MR, mild pulmonic regurgitation. Per radiology read, CT chest with scarring from recent pneumonia, and new B/L infiltrates sugegstive of covid 19, however patient's respiratory viral panel is currently negative. Supect that these new infiltrates are pulmonary edema. Patient's lung exam is much improved after getting lasix last evening. We will repeat lasix 20mg iv today. Monitor I/O, start lasix 40mg po daily. Careful initiation given he is lasix naive and with recent FABI. FABI on CKD, creatinine up to 2.4, currently improved at 1.5 NSTEMI serial EKGs serial troponins telemetry monitoring without significant delta's currently. Troponin series repeated in view of ongoing symptoms with otherwise clinical signs of recovery from pneumonia. Will obtain stress test to evaluate for ischemia/angina which may be contributing to persisting dyspnea. Atrial fibrillation continue Eliquis, continue metoprolol. transaminitis, suspect hepatic congestion from CHF, perhaps diastolic CHF. Check liver US and hepatitis serologies. Insulin,, Lantus 40 units every morning. Hemoglobin A1c of 6.6 is consistent with well-controlled diabetes as outpatient. Attestations Medical Necessity Statement*: stress test in am, iv diuretics today, slowly trending towards improvement Coding Level of Care Code Acute Aircraft Instrument Tester for [facility] Fwd Diagnoses Secondary bacterial pneumonia J15.9 Acute renal failure N17.9 Congestive heart failure I50.9 Primary atypical pneumonia J18.9 Influenza A J10.1 Chronic atrial fibrillation I48.20 Essential hypertension I10 Hyponatremia E87.1
[2022-07-31 19:54] LABS: Glucose Point of Care 164 mg/dL (70-110)
[2022-07-31] MEDS: pantoprazole 40 mg SDV IVP (20:26)
[2022-08-01] VITALS (10 sets, daily range): BP systolic 117–155; BP diastolic 69–80; PULSE 70–76; RESP 16–24; TEMP 36.6; O2SAT 96–97
--- NOTE | 2022-08-01 | ECG_ITS ---
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 Interpretive Statements NAME OF STUDY: LEXISCAN SESTAMIBI STRESS TEST INDICATION: Angina PROCEDURE: At the baseline, the blood pressure was 148/78 mmHg with a heart rate of 66 bpm. The electrocardiogram showed sinus rhythm, normal axis. Incomplete right bundle branch block. The Lexiscan was infused over a period of 20 seconds. A total of 0.4 milligrams of Lexiscan was infused. The stress phase was continued for a total of 5 minutes. Heart rate at the end of the stress phase was 76 bpm with a blood pressure of 144/76 mmHg. The EKG at the peak infusion revealed sinus rhythm with no significant ST-T wave changes. Isolated PVCs noted during Lexiscan infusion. Sestamibi was injected 20 seconds after the Lexiscan infusion. Blood pressure at the end of the recovery phase was 155/80 mmHg with a heart rate of 77 beats per minute. CONCLUSION: 1. No significant EKG changes with the] LexiScan infusion. 2. No LexiScan induced chest pain or cardiac arrhythmia. 3. Normal blood pressure and heart rate response. 4. Sestamibi/sestamibi perfusion scan pending; see separate report. Electronically Signed On 08-02-2022 11:18:26 MANAGER SOLAR by Glory Gallo M.D. [id number]
[2022-08-01] MEDS: levoFLOXacin 500 mg Tablet PO (04:17)
[2022-08-01 05:58] LABS: Glucose Point of Care 72 mg/dL (70-110)
--- NOTE | 2022-08-01 07:00 | NMCV_ITS ---
NM sachin perf SPECT r/s* [id number] Jonathan Baker Age: 72 Gender: M : 1950 Exam Date: 08/01/2022 06:40 Ordering Phys: Sandrita Emerson MD Technologist: SHAVON Handley Exam Location: [facility] Indications: CHEST PAIN STRESS TEST Please see separate stress test report in [facility] for full findings IMAGE PROTOCOL Rest/Stress 1 Lexiscan Day Radiopharmaceutical Dose (mCi) Administration Site Administered by Rest: Tc-99m 9.9 IV SHAVON Ward Sestamibi Stress:Tc-99m 32.6 IV SHAVON Ward Sestamibi Rest: 01-Aug-2022 60 Discovery 630 Stress: 01-Aug-2022 30 Discovery 630 0.4mg Lexiscan. Images obtained in supine and prone position. SPECT RESULTS Technical Quality: Excellent Raw Data Analysis: Normal Image Corrections: No attenuation or motion correction applied Summed Stress Score: 4 Summed Rest Score: 3 Summed Difference Score: 2 PERFUSION FINDINGS Small size perfusion abnormality of mild severity of apical anterior and apical lateral delaney on rest images with subtle reversibility in mid anterolateral and apical anterior delaney on supine stress images. There is improved tracer uptake in anterolateral and apical delaney on prone stress images. This is likely suggestive of attenuation artifact FUNCTIONAL RESULTS (calculated via Gated SPECT) Stress Image LV EF (%): 72 Stress EDV (mL):71 TID: 1 Stress ESV (mL):20 FUNCTIONAL FINDINGS: The left ventricle is normal in size. Transient Ischemia Dilatation of 1. There is normal left ventricular systolic function. The left ventricular ejection fraction is normal with a value of 72%. There is hyperdynamic left ventricular wall thickening. IMPRESSIONS 1. Myocardial perfusion imaging is normal. Attenuation artifact in anterolateral and apical segments. 2. Overall left ventricular systolic function is normal without regional wall motion abnormalities, LVEF=72%. 3. EKG portion of the study will be reported separately. 4. No coronary ischemia based on this study. Glory Gallo MD (Electronically Signed) Final Date: 01 August 2022 09:53 S
[2022-08-01] MEDS: regadenoson 0.4 Mg/5 ml Syringe IVP (07:40)
[2022-08-01] MEDS: ipratropium-albuterol 3 mL Neb INHALATION ×3 (08:49→15:24)
[2022-08-01] MEDS: budesonide 0.5 mg/2 mL Neb INHALATION (08:49)
[2022-08-01] MEDS: PARoxetine 20 mg Tablet 40 MG PO (09:08)
[2022-08-01] MEDS: gabapentin 300 mg Capsule PO (09:08)
[2022-08-01] MEDS: cholecalciferol (vitamin D3) 1,000 unit Tablet 1000 UNIT PO (09:08)
[2022-08-01] MEDS: FUROsemide 40 mg Tablet PO (09:08)
[2022-08-01] MEDS: atorvastatin 40 mg Tablet 80 MG PO (09:09)
[2022-08-01] MEDS: apixaban 5 mg Tablet PO (09:09)
[2022-08-01] MEDS: guaiFENesin 600 mg Tablet PO (09:09)
[2022-08-01] MEDS: amiodarone 200 mg Tablet 400 MG PO (09:09)
[2022-08-01] MEDS: allopurinol 100 mg Tablet PO (09:09)
[2022-08-01] MEDS: sodium bicarbonate 650 mg Tablet PO (09:09)
[2022-08-01] MEDS: docusate sodium 100 mg Capsule 200 MG PO (09:09)
[2022-08-01] MEDS: ezetimibe 10 mg Tablet PO (09:09)
[2022-08-01] MEDS: aspirin 81 mg EC Tablet PO (09:09)
[2022-08-01] MEDS: metoprolol succinate ER (24 HR) 25 mg Tablet PO (10:02)
[2022-08-01 10:59] LABS: Glucose Point of Care 139 mg/dL (70-110)
--- NOTE | 2022-08-01 16:40 | PC.NURSE ---
discharge instructions given and explained.pt verb understanding of instructions.discharged at 1610 via w/c to exit.daughter to drive pt home.
--- NOTE | 2022-08-01 16:46 | P.DS_ITS ---
Discharge Providers Date of Admission: 07/26/22 16:50 Date of Discharge: August 01, 2022 Attending Provider at Admission: Kevin Boggs MD Attending Provider at Discharge: Sandrita Emerson MD Diagnoses at Discharge Discharge Diagnosis (1) Secondary bacterial pneumonia: Status: Acute (2) Acute renal failure: Status: Acute (3) Congestive heart failure: Status: Acute (4) Primary atypical pneumonia: Status: Acute (5) Influenza A: Status: Acute (6) Chronic atrial fibrillation: Status: Acute (7) Essential hypertension: Status: Acute (8) Hyponatremia: Status: Acute Reason for Visit Reason for Visit: irregular hr sob Hospital Course Hospital Course Jonathan Baker is a 72 year old male with PMH CAD s/p CABG, chronic A fib, HTN, presenting with 3-4 days of cough, shortness of breath.? Patient recently was admitted to [facility] for flu A, CHF, NSTEMI. He presented to the hospital for admission on July 25 with chief complains of persisting shortness of breath, productive sputum. He had a new oxygen requirement of 2 L/min. There was concern for secondary bacterial pneumonia for which she was placed on antibiotic treatment with ceftriaxone and azithromycin initially, transition to levofloxacin for better atypical coverage. Serial CTs and CAT scan were repeated while in the hospital. Initially chest x-rays were suggestive of progressive pneumonia. CT of the chest showed interval appearance of groundglass opacities throughout the right upper lobe and left lung base and not pulmonary nodular areas of scarring, likely as a result of sequelae of recent pneumonia. The bilateral GGO's were read per radiology to be signs sales representative of likely COVID-19, however patient's respiratory viral panel was negative including for COVID-19. Clinically it appears patient may have pulmonary edema related to preserved ejection fraction heart failure. He had an elevated BNP. He had signs of congestive hepatopathy with transaminitis.On a recent admission he had NSTEMI with elevated troponins. A recent echocardiogram performed within the past month had shown normal systolic function, no comment on the diastolic function but a thickened mitral valve, mild MR and mild pulmonary regurgitation. He received IV Lasix once his FABI resolved and had significant improvement in his symptoms after receiving IV Lasix. Diuretics were not continued at discharge as patient is feeling improved and because he has recently recovered from acute kidney injury. He also underwent a stress test since on previous admission he was noted to have an NSTEMI, but could not be evaluated further at that time because of acute viral illness. On the current admission his troponins had trended down, however remained in the elevated 55-60 range. He completed a stress test this admission which did not show any signs of reversible coronary disease at this time. Other possibilities for his persisting dyspnea include reactive airway disease from recent illnesses. For this he received nebulizations with budesonide and DuoNeb [id number]. He is being discharged with Advair and Spiriva inhalers and as needed albuterol nebulization.Systemic steroids discontinued at discharge. Mild leukocytosis during admission suspected to be from systemic steroids. Sputum cx with normal respiratory sabrina. It is recommended he follow up with PCP and repeat CT scan in 2 weeks to follow up on resolution of findings. If persisting, would be prudent to follow up with pulmonolgy. Also provoided referral to cardiology as patient is post CABG and would need continuity of cardiac care., Lisinorpil has been placed on hol dthis admission due to FABI. repeat CMP in 3 days Physical Exam Narrative: General: No acute distress, AO x3 HEENT: PERRLA, pupils bilaterally equal and reactive, pallors not present Chest: Normal vesicular breath sounds, no added sounds, equal good air entry bilaterally CVS: S1-S2 regular, no murmurs, no tachycardia, no gallops, no rubs Abdomen: Soft, nontender, no organomegaly, bowel sounds present Neuro: No focal deficits, no facial deformity, AO x3, power 5/5 in all limbs Discharge Data Studies Completed and Pending Completed Studies During Hospitalization Category Date Time Status CT chest wo con [id number] Routine Cat Scan 07/29/22 12:42 Completed Cardiac Stress Test MIBI [Sestamibi Stress Test Request Exams 08/01/22 06:20 Draft ] Routine XR chest 2V* [id number] Stat Exams 07/25/22 14:17 Completed NM sachin perf SPECT r/s* [id number] Routine Nuc Med 08/01/22 07:00 [place] liver [id number] Routine Ultrasound 07/31/22 13:04 Completed Pending at discharge Category Date Time Status Cardiac Stress Test MIBI [Sestamibi Stress Test Request Exams 07/31/22 18:52 Stop Req ] Routine Cardiac Stress Test MIBI [Sestamibi Stress Test Request Exams 08/01/22 07:19 Ordered ] Routine Radiology Impressions Chest X-Ray 07/25/22 14:17 IMPRESSION: Ill-defined curvilinear opacities in the left mid and lower lung. There was extensive scarring in this region on prior CT. This may reflect the radiographic appearance of these findings, however, superimposed infiltrates in these regions are not excluded. Chest CT 07/29/22 12:42 IMPRESSION: 1. Continued partially calcified enlargement of one or both thyroid glands: Non-emergent correlation with ultrasound and/or serum lab values is recommended to rule out goiter. 2. Stable CABG procedure. 3. Stable IVC filter. 4. Interval appearance of ground-glass opacities throughout the right upper lobe and in the left lung base consistent with COVID-19 pneumonia versus other pneumonia. 5. Slight increased size of 15 mm spiculated nodule in the right middle lobe most consistent with infectious process. 6. Increased size of 2.4 and 2.1 cm pulmonary nodular areas of scarring with extension to the pleural surface most consistent with infectious process. 7. Follow-up CT scan 3 months following clinical resolution of pneumonia may be helpful for complete evaluation. Liver Ultrasound 07/31/22 13:04 IMPRESSION: 1. Limited quality evaluation of the RIGHT upper quadrant due to body habitus and bowel gas. 2. Prior cholecystectomy. 3. Hepatic steatosis. Laboratory Results WBC 14.8 10^3/uL (4.0-10.0) H 07/31/22 04:29 RBC 4.33 10^6/uL (4.1-5.3) 07/31/22 04:29 Hgb 12.9 g/dL (11.7-16.6) 07/31/22 04:29 Hct 40.0 % (42.0-52.0) L 07/31/22 04:29 MCV 92.4 fl (80-94) 07/31/22 04:29 MCH 29.8 pg (28.0-34.0) 07/31/22 04:29 MCHC 32.3 g/dL (30.0-36.0) 07/31/22 04:29 RDW 12.8 % (12.1-15.1) 07/31/22 04:29 Plt Count 285 10^3/cmm (130-400) 07/31/22 04:29 MPV 10.3 fL (7.4-10.4) 07/31/22 04: Neut % (Auto) 73.3 % 07/31/22 04: Lymph % (Auto) 10.8 % 07/31/22 04: [place] % (Auto) 7.2 % 07/31/22 04:29 Eos % (Auto) 0.5 % 07/31/22 04:29 Baso % (Auto) 0.9 % 07/31/22 04: Neut # (Auto) 10.88 10^3/uL (1.8-7.7) H 07/31/22 04: Lymph # (Auto) 1.6 10^3/uL (0.8-4.8) 07/31/22 04: [place] # (Auto) 1.1 10^3/uL (0.2-0.9) H 07/31/22 04:29 Eos # (Auto) 0.1 10^3/uL (0.0-0.8) 07/31/22 04: Baso # (Auto) 0.1 10^3/uL (0.0-0.1) 07/31/22 04: Nucleated RBC % (auto) 0 % 07/31/22 04: Nucleated RBCs # 0.0 /100WBC 07/31/22 04:29 PT 17.30 SECONDS (12.1-14.9) H 07/26/22 03:52 INR 1.38 (0.8-1.2) H 07/26/22 03:52 Sodium 133 mmol/L (136-145) L 07/31/22 04:29 Potassium 4.5 mmol/L (3.5-5.1) 07/31/22 04:29 Chloride 98 mmol/L (98-107) 07/31/22 04:29 Carbon Dioxide 23 mmol/L (22-29) 07/31/22 04:29 Anion Gap 16.5 (5-19) 07/31/22 04:29 BUN 39 mg/dL (8-23) H 07/31/22 04:29 Creatinine 1.5 mg/dL (0.7-1.2) H 07/31/22 04:29 GFR Calculation Not Reportable 07/31/22 04:29 Glucose 132 mg/dL (65-115) H 07/31/22 04:29 POC Glucose 139 mg/dL (70-110) H 08/01/22 10:56 Estimat Average Glucose 143 07/26/22 03:52 Hemoglobin A1c 6.6 % (4.0-6.0) H 07/26/22 03:52 Calculated Osmolality 287 mOsm/kg (285-295) 07/31/22 04:29 Lactic Acid 2.6 mmol/L (0.5-2.2) H 07/25/22 15:20 Lactic Acid (Sepsis) 1.6 mmol/L (0.5-2.2) 07/25/22 17:44 Calcium 8.9 mg/dL (8.5-10.5) 07/31/22 04:29 Phosphorus 2.4 mg/dL (2.5-4.5) L 07/26/22 03:52 Magnesium 1.4 mg/dL (1.7-2.3) L 07/31/22 04:29 Total Bilirubin 0.5 mg/dL (0.15-1.2) 07/31/22 04:29 AST 62 U/L (0-40) H 07/31/22 04:29 ALT 146 U/L (0-41) H 07/31/22 04:29 Alkaline Phosphatase 96 U/L (40-130) 07/31/22 04:29 Troponin T Baseline 72 ng/L (0-15) H 07/29/22 13:40 Troponin T 120 Minute 66.44 ng/L (0-15) H 07/29/22 17:06 Delta Troponin T -5.56 ABS# (0-10) L 07/29/22 17:06 Troponin T Hi Sens 6Hr 58.69 ng/L (0-15) H 07/29/22 20:45 Troponin T Hi Sens 6Hr Delta -13.31 ng/L (0-12) L 07/29/22 20:45 C-Reactive Protein 111.5 mg/L (0.0-4.9) H 07/25/22 15:20 NT-Pro-B Natriuret Pep 1945 pg/mL (0-125) H 07/31/22 04:29 Total Protein 6.6 g/dL (6.6-8.7) 07/31/22 04:29 Albumin 3.2 g/dL (3.5-5.2) L 07/31/22 04:29 Globulin 3.4 g/dL (1.3-4.6) 07/31/22 04:29 Triglycerides 65 mg/dL (0-150) 07/26/22 03:52 Cholesterol 87 mg/dL (0-200) 07/26/22 03:52 LDL Cholesterol, Calc 28 mg/dL (50-129) L 07/26/22 03:52 HDL Cholesterol 46 mg/dL (60-100) L 07/26/22 03:52 LDL/HDL Ratio 0.61 RATIO (0.00-3.22) 07/26/22 03:52 Cholesterol/HDL Ratio 1.89 mg/dL (1.0-5.00) 07/26/22 03:52 Procalcitonin 0.95 ng/mL (0-0.5) H 07/25/22 15:20 TSH 0.44 uIU/mL (0.27-4.20) 07/26/22 03:52 Nasal Influ A H1 2008 PCR Cancelled 07/29/22 13:35 Nasal Influ A H1 2008 PCR Not detected (NOT DETECT) 07/29/22 13:35 Adenovirus (PCR) Cancelled 07/29/22 13:35 Adenovirus (PCR) Not detected (NOT DETECT) 07/29/22 13:35 C. pneumoniae DNA (PCR) Cancelled 07/29/22 13:35 C. pneumoniae DNA (PCR) Not detected (NOT DETECT) 07/29/22 13:35 Coronavirus 229E (PCR) Cancelled 07/29/22 13:35 Coronavirus 229E (PCR) Not detected (NOT DETECT) 07/29/22 13:35 Human Metapneumovir PCR Cancelled 07/29/22 13:35 Human Metapneumovir PCR Not detected (NOT DETECT) 07/29/22 13:35 Influenza A (H1) PCR Cancelled 07/29/22 13:35 Influenza A (H1) PCR Not detected (NOT DETECT) 07/29/22 13:35 Influenza A (H3) PCR Cancelled 07/29/22 13:35 Influenza A (H3) PCR Not detected (NOT DETECT) 07/29/22 13:35 Influenza Type A (PCR) Cancelled 07/29/22 13:35 Influenza Type A (PCR) Not detected (NOT DETECT) 07/29/22 13:35 Influenza Type B (PCR) Cancelled 07/29/22 13:35 Influenza Type B (PCR) Not detected (NOT DETECT) 07/29/22 13:35 M. pneumoniae (PCR) Cancelled 07/29/22 13:35 M. pneumoniae (PCR) Not detected (NOT DETECT) 07/29/22 13:35 Parainfluenza 1 (PCR) Cancelled 07/29/22 13:35 Parainfluenza 1 (PCR) Not detected (NOT DETECT) 07/29/22 13:35 Parainfluenza 2 (PCR) Cancelled 07/29/22 13:35 Parainfluenza 2 (PCR) Not detected (NOT DETECT) 07/29/22 13:35 Parainfluenza 3 (PCR) Cancelled 07/29/22 13:35 Parainfluenza 3 (PCR) Not detected (NOT DETECT) 07/29/22 13:35 Parainfluenza 4 (PCR) Cancelled 07/29/22 13:35 Parainfluenza 4 (PCR) Not detected (NOT DETECT) 07/29/22 13:35 RSV Type A (PCR) Cancelled 07/29/22 13:35 RSV Type A (PCR) Not detected (NOT DETECT) 07/29/22 13:35 RSV Type B (PCR) Cancelled 07/29/22 13:35 RSV Type B (PCR) Not detected (NOT DETECT) 07/29/22 13:35 Entero/Rhino (PCR) Cancelled 07/29/22 13:35 Entero/Rhino (PCR) Not detected (NOT DETECT) 07/29/22 13:35 SARS-CoV-2 (PCR) Cancelled 07/29/22 13:35 SARS-CoV-2 (PCR) Not detected (NOT DETECT) 07/29/22 13:35 Vitals Last Vital Signs Temp 97.8 F 08/01/22 11:37 Pulse 74 08/01/22 15:54 Resp 16 08/01/22 15:26 BP 142/77 08/01/22 11:37 Pulse Ox 96 08/01/22 15:26 O2 Del Method 08/01/22 15:26 O2 Flow Rate 2 08/01/22 15:26 Discharge Plan Discharge Patient Disposition: Home Health Service Condition: Stable Prescriptions: New levofloxacin 500 mg Tablet 500 mg PO DAILY@0600 7 Days Qty: 7 0RF Advair Diskus 500-50 mcg/dose blister with device 1 inh inhalation BID Qty: 60 0RF Spiriva Respimat 2.5 mcg/actuation mist 2 inh inhalation Q24H Qty: 4 0RF albuterol sulfate 2.5 mg /3 mL (0.083 %) solution for nebulization 2.5 mg inhalation Q8H PRN (Reason: shortness of breath or wheezing) Qty: 75 0RF Continued aspirin [Adult Low Dose Aspirin] 81 mg tablet,delayed release (DR/EC) 81 mg PO DAILY ezetimibe 10 mg tablet 10 mg PO DAILY glipizide 10 mg tablet 5 mg PO QPM Glucerna Shake Liquid 1 ea PO BID gabapentin 600 mg Tablet 300 mg PO BID insulin glargine 100 unit/mL Solution 65 unit SUBCUT QAM cromolyn 5.2 mg/spray (4 %) [place],Non-Aerosol 1 spray INTRANASAL DAILY PRN (Reason: unknown) omega-3 fatty acids 1,000 mg Capsule 1,000 mg PO BID cetirizine [Zyrtec] 10 mg Tablet 10 mg PO DAILY metoprolol succinate 50 mg Tablet Extended Release 24 Hr 25 mg PO DAILY allopurinol 100 mg Tablet 100 mg PO DAILY tamsulosin [Flomax] 0.4 mg Capsule 0.4 mg PO QPM sodium bicarbonate 650 mg Tablet 650 mg PO BID docusate sodium [Colace] 100 mg Capsule 200 mg PO BID Rx Instructions: hold for loose stool paroxetine HCl [Paxil] 40 mg Tablet 40 mg PO DAILY rosuvastatin 40 mg Tablet 20 mg PO DAILY cholecalciferol (vitamin D3) [Vitamin D3] 25 mcg (1,000 unit) Tablet 75 mcg PO DAILY Eliquis 5 mg Tablet 5 mg PO BID amiodarone [Pacerone] 200 mg Tablet See Rx Instructions .ROUTE .COMPLEX 30 Days Qty: 60 0RF Rx Instructions: 2 tab once a day for one week, then decrease to one tab once a day Held lisinopril-hydrochlorothiazide 10-12.5 mg Tablet 2 tab PO QAM Hold Instructions: Resume on 07/30/22. hold until recheck kidney function Discharge Orders: Discharge Order (Routine); Ordered 08/01/22 Ordered By: Sandriat Emerson Other Ambulatory Orders: Comprehensive Metabolic Panel (Routine) Timeframe: 3 Days Facility: [facility] - Location: Lab - Main Lab Ordered By: Sandrita Emerson DME: Oxygen (Order) Location: None Selected Ordered By: Sandrita Emerson Referrals: [facility] ([facility]) [Outside] Ramiro Parrish MD [Physician] - (During your follow-up with Pari Cortes please ask for a referral and you will be set-up wih an appointment with Dr. Parrish. ) Pari Cortes FNP [Nurse Practitioner] - 08/07/22 9:45 am (Please keep your appointment with Pari Cortes on Aug.07 at 9:45A.M. If you have any questions or need to reschedule. Please call ) Discharge Diet: Usual diet Discharge Activity: Resume usual activity Patient Instructions: Levofloxacin (By mouth), Fluticasone/Salmeterol (By breathing) (Advair Diskus 100/50, Advair..., Tiotropium (By breathing) (Spiriva, Spiriva Respimat), Hyponatremia (DC), Bacterial Pneumonia (DC), CHF Stoplight, Opioid Safety Discharge Attestations Time Spent in Discharge Care*: greater than 30 min Quality Metrics Clinical Quality Measures [ No reported AMI, CVA or VTE this stay] Coding Level of Care Code Acute Chg FW DC note Diagnoses Secondary bacterial pneumonia J15.9 Acute renal failure N17.9 Congestive heart failure I50.9 Primary atypical pneumonia J18.9 Influenza A J10.1 Chronic atrial fibrillation I48.20 Essential hypertension I10 Hyponatremia E87.1
== END 2022-08-01 16:10 | disposition home health service (06) | DRG 193 ==
LOC: ER 17:18 → CSU 19:06
PROVIDERS: Admitting Provider Family Medicine; Emergency Provider Emergency Medicine; Visit Provider Student in an Organized Health Care Education/Training Program
DX: J10.08 Influenza due to other identified influenza virus with other specified pneumonia (principal); I21.4 Non-ST elevation (NSTEMI) myocardial infarction; I48.20 Chronic atrial fibrillation, unspecified; I13.0 Hypertensive heart and chronic kidney disease with heart failure and stage 1 through stage 4 chronic kidney disease, or unspecified chronic kidney disease; I50.20 Unspecified systolic (congestive) heart failure; N17.9 Acute kidney failure, unspecified; E87.1 Hypo-osmolality and hyponatremia; J15.9 Unspecified bacterial pneumonia; I25.10 Atherosclerotic heart disease of native coronary artery without angina pectoris; Z95.1 Presence of aortocoronary bypass graft; E11.22 Type 2 diabetes mellitus with diabetic chronic kidney disease; E11.65 Type 2 diabetes mellitus with hyperglycemia; N18.9 Chronic kidney disease, unspecified; Z87.891 Personal history of nicotine dependence; Z79.82 Long term (current) use of aspirin; Z79.84 Long term (current) use of oral hypoglycemic drugs; Z79.4 Long term (current) use of insulin; Z79.01 Long term (current) use of anticoagulants
CPT/HCPCS: 36415; 36416; 71046; 71250; 76705; 78452; 80048; 80053; 80061; 82962; 83036; 83605; 83735; 83880; 84100; 84145; 84443; 84484; 85025; 85610; 86140; 86403; 87040; 87070; 87205; 87486; 87581; 87633; 87641; 93005; 93017; 94640; 94664; 94760; 96365; 96372; 96374; 96375; 97161; 97165; 99285; A9500; C9113; G0378; J0456; J0696; J1815; J1940; J2785; J2920; J2930; J3475; J7030; J7050; J7512; J7626

== ENCOUNTER 2022-08-10 12:17 | Outpatient (CLI) | payer OTHER, SELFPAY ==
[2022-08-10 13:03] LABS: Alanine Aminotransferase 39 U/L (0-41); Albumin Level 3.4 g/dL (3.5-5.2); Alkaline Phosphatase 100 U/L (40-130); Anion Gap 14.2 (5-19); Aspartate Amino Transferase 22 U/L (0-40); Blood Urea Nitrogen 41 mg/dL (8-23); Calcium 8.7 mg/dL (8.5-10.5); Carbon Dioxide 26 mmol/L (22-29); Chloride 103 mmol/L (98-107); Globulin 3.3 g/dL (1.3-4.6); Glucose 191 mg/dL (65-115); Osmolality Calculated 303 mOsm/kg (285-295); Potassium 4.2 mmol/L (3.5-5.1); Sodium 139 mmol/L (136-145); Total Bilirubin 0.4 mg/dL (0.15-1.2); Total Protein 6.7 g/dL (6.6-8.7)
== END 2022-08-10 12:18 | disposition home or self-care (01) ==
LOC: LAB 12:19
PROVIDERS: Visit Provider Student in an Organized Health Care Education/Training Program
DX: N17.9 Acute kidney failure, unspecified (principal)
CPT/HCPCS: 36415; 80053

== ENCOUNTER 2022-10-10 14:58 | Observation (INO) | payer OTHER, SELFPAY ==
[2022-10-10] VITALS (22 sets, daily range): BP systolic 72–164; BP diastolic 42–93; PULSE 98–223; RESP 6–24; TEMP 36.9; O2SAT 91–97; BMI 33.2
--- NOTE | 2022-10-10 15:02 | XRR_ITS ---
PROCEDURE INFORMATION: Exam: XR Chest Exam date and time: 10/10/2022 3:31 PM Age: 72 years old Clinical indication: Pain; Angina pectoris; Additional info: Chest pain TECHNIQUE: Imaging protocol: Radiologic exam of the chest. Views: 1 view. COMPARISON: CT chest wo con [id number] 07/29/2022 2:41 PM FINDINGS: Lungs: There are defribrillator pads electrode wires obscuring assessment of the left heart border and portion of the left lung. There is some chronic pleural thickening and adjacent subpleural atelectasis, stable. Mild subsegmental atelectasis is present at the right lung base. Pleural spaces: Pleural surfaces: No pleural effusions or pneumothorax. Heart/Mediastinum: Heart size cannot be adequately assessed. Bones/joints: Evidence of prior median sternotomy. XR/XR chest 1V portable [id number] IMPRESSION: Limited chest exam with chronic scarring/pleural thickening left hemithorax and mild subsegmental atelectasis right lung base.
--- NOTE | 2022-10-10 15:04 | ECG_ITS ---
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 Measurements Intervals Artie Rate: 219 P: 0 PA: 0 QRS: 184 QRSD: 235 T: 0 QT: 229 QTc: 438 Interpretive Statements Possible atrial flutter with a 2-1 block RIGHT BUNDLE BRANCH BLOCK [120+ ms QRS DURATION, UPRIGHT V1, 40+ ms S IN I/aVL/V4/V5/V6] LEFT POSTERIOR FASCICULAR BLOCK [QRS AXIS > 109, INFERIOR Q] CRITICAL TEST RESULT Compared to ECG 07/29/2022 21:19:47 Right bundle-branch block now present Left posterior fascicular block now present Sinus rhythm no longer present Incomplete right bundle-branch block no longer present Electronically Signed On 10-11-2022 0:11:01 DRILLER MACHINE by Petty Yoo M.D. [email or web address]
--- NOTE | 2022-10-10 15:05 | ECG_ITS ---
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 Measurements Intervals [place] Rate: 123 P: 0 MS: 0 QRS: 73 QRSD: 88 T: 46 QT: 306 QTc: 438 Interpretive Statements ATRIAL FLUTTER/TACHYCARDIA WITH RAPID VENTRICULAR RESPONSE, variable block . LOW QRS VOLTAGE IN PRECORDIAL LEADS [QRS DEFLECTION < 1.0 mV IN CHEST LEADS] PATTERN CONSISTENT WITH PULMONARY DISEASE POSSIBLE RIGHT VENTRICULAR CONDUCTION DELAY [RSR (QR) IN V1/V2] MODERATE ST DEPRESSION [0.05+ mV ST DEPRESSION] Compared to ECG 10/10/2022 15:04:59 Low QRS voltage now present ST (T wave) deviation now present Right bundle-branch block no longer present Left posterior fascicular block no longer present Electronically Signed On 10-11-2022 0:12:12 SCHOOL SERVICES OFFICER by Petty Yoo M.D. [email or web address]
[2022-10-10] MEDS: adenosine 3 mg/mL SDV 2mL 6 MG IVP (15:13)
[2022-10-10] MEDS: adenosine 3 mg/mL SDV 2mL 12 MG IVP (15:16)
[2022-10-10] MEDS: dilTIAZem 100 MG in sodium chloride 0.9% (add-van) 100 ML IV (15:20)
[2022-10-10] MEDS: dilTIAZem 5 mg/mL SDV 5 mL 20 MG IVP (15:22)
--- NOTE | 2022-10-10 15:39 | ED_ITS ---
HPI - Chest Pain General: Chief Complaint: Chest Pain Stated Complaint: chest pain Time Seen by Provider: 10/10/22 15:31 Source: patient Mode of arrival: ambulatory History of Present Illness: 72 male presents emergency room with complaints of rapid heart rate. He states he started feeling funny around 2:00 he presented here at 1458. Reports chest discomfort and tightness at 8 of 10. Patient has a known history of atrial fibrillation he is on Eliquis for anticoagulation and metoprolol for rate control. He does not believe he missed any medications recently and has had no medication changes. He is diabetic is a former smoker and he has known coronary disease with previous coronary artery bypass graft. MD complaint: chest pain Pertinent past history: coronary artery disease Onset (ago): minute(s) Timing of current episode: constant Prior episodes: Yes Onset: during rest Pain location: substernal and left chest Severity: severe Quality: tightness and aching Relieving factors: nothing Exacerbating factors: nothing Associated symptoms: Reports diaphoresis, dyspnea, palpitations and sense of impending doom; Deny abdominal pain, fever(s), leg edema, nausea, syncope or vomiting Treatment prior to arrival: aspirin Review of Systems Const: Reports: diaphoresis; Denies: fever(s), chills, fatigue or malaise ENMT: Denies: throat pain, ear or mastoid pain, nasal discharge or nasal congestion Card: Reports: chest pain, palpitations and irregular heart rhythm; Denies: edema, swelling of feet/ankles or syncope Resp: Reports: dyspnea GI: Denies: abdominal pain, nausea or vomiting : Denies: flank pain, dysuria, urinary frequency or urinary urgency Skin/Breast: Denies: rash or pruritus PFSH ED PFSH: Medical History Atherosclerosis Chronic atrial fibrillation Depressive disorder Essential hypertension Gout Hyperlipidemia Peripheral neuropathy Surgical History H/O knee surgery History of cholecystectomy Hx of CABG Family History Other Family history of premature coronary artery disease Stroke Social History Smoking and tobacco status: former smoker Physical Exam Const: GENERAL APPEARANCE: cooperative and comfortable ORIENTATION/CONSCIOUSNESS: Yes awake, Yes oriented to person, Yes oriented to place and Yes oriented to time HENMT: COMMON NORMALS: normocephalic, atraumatic and hearing grossly normal bilaterally HEAD & SCALP: normocephalic and atraumatic Resp: COMMON NORMALS: normal respiratory effort, No retractions, No use of accessory muscles and clear to auscultation bilaterally AUSCULTATION: clear to auscultation bilaterally Cardio: RATE: tachycardic RHYTHM: abnormal rhythm irregularly irregular GI: COMMON NORMALS: Soft to palpation and No hepatosplenomegaly present AUSCULTATION: Yes normoactive bowel sounds PALPATION: Yes Soft to palpation, No Tenderness to palpation present (GI), No Guarding due to palpation present (GI) and Yes No hepatosplenomegaly present Extremity: COMMON NORMALS: normal to inspection, capillary refill normal, no clubbing, cyanosis or edema, no calf tenderness and no pedal edema Neuro: SENSORIUM/ORIENTATION: Yes oriented to person, Yes oriented to place and Yes oriented to time Skin: COMMON NORMALS: no rashes or lesions noted GENERAL SKIN EXAM: no rashes or lesions noted Course Vital Signs: Vital signs: Vital Signs Temperature 98.4 F 10/10/22 15:01 Pulse Rate 222 H 10/10/22 15:02 Respiratory Rate 14 10/10/22 15:02 Blood Pressure 164/69 10/10/22 15:02 Pulse Oximetry 97 10/10/22 15:02 Oxygen Delivery Me thod 10/10/22 15:02 Oxygen Flow Rate 2 10/10/22 15:02 MDM - Chest Pain Medical Decision Making Patient arrived to the tachyarrhythmia rapid rate was consistently at 220. To be SVT was given adenosine the first time and there was a slight slowing to where he got down to the 150 range and there were P waves with each QRS we gave him a second dose of adenosine and it did slow his rate down more and was identifiable at a rate a little bit over 100 as a flutter as a background rate. We then switched to Cardizem after 20 IV push she slowed down to the 120s and re mained there he was given a IV drip of Cardizem we titrated up to 10 but he became hypotensive and had to back off and we backed off his heart rate went back up to the 130s he was then switched amiodarone 150mg over 15 minutes IV and then a drip at 1 mg/h patient is doing much better now. When he first arrived he had significant chest pain after his rate was in proved into the lower 100s his chest discomfort resolved on the amiodarone at this time his blood pressure is 117/76 his heart rate is around 110. His first troponin is greater than [address] Deal and will admit hospitalist service. Medical Records I reviewed the patient's medical records. Lab Data I reviewed the patient's lab results. 10/10/22 15:40 10/10/22 15:40 Radiology Impressions Chest X-Ray 10/10/22 15:02 IMPRESSION: Limited chest exam with chronic scarring/pleural thickening left hemithorax and mild subsegmental atelectasis right lung base. Laboratory Results WBC 8.8 10^3/uL (4.0-10.0) 10/10/22 15:40 RBC 4.95 10^6/uL (4.1-5.3) 10/10/22 15:40 Hgb 14.4 g/dL (11.7-16.6) 10/10/22 15:40 Hct 43.3 % (42.0-52.0) 10/10/22 15:40 MCV 87.5 fl (80-94) 10/10/22 15:40 MCH 29.1 pg (28.0-34.0) 10/10/22 15:40 MCHC 33.3 g/dL (30.0-36.0) 10/10/22 15:40 RDW 13.4 % (12.1-15.1) 10/10/22 15:40 Plt Count 223 10^3/cmm (130-400) 10/10/22 15:40 MPV 10.8 fL (7.4-10.4) H 10/10/22 15:40 Neut % (Auto) 60.0 % 10/10/22 15:40 Lymph % (Auto) 24.1 % 10/10/22 15:40 [place] % (Auto) 13.9 % 10/10/22 15:40 Eos % (Auto) 1.0 % 10/10/22 15:40 Baso % (Auto) 0.5 % 10/10/22 15:40 Neut # (Auto) 5.29 10^3/uL (1.8-7.7) 10/10/22 15:40 Lymph # (Auto) 2.1 10^3/uL (0.8-4.8) 10/10/22 15:40 [place] # (Auto) 1.2 10^3/uL (0.2-0.9) H 10/10/22 15:40 Eos # (Auto) 0.1 10^3/uL (0.0-0.8) 10/10/22 15:40 Baso # (Auto) 0.0 10^3/uL (0.0-0.1) 10/10/22 15:40 Nucleated RBC % (auto) 0 % 10/10/22 15:40 Nucleated RBCs # 0.0 /100WBC 10/10/22 15:40 D-Dimer 0.41 ug/mIFEU (0-0.59) 10/10/22 14:50 Sodium 135 mmol/L (136-145) L 10/10/22 15:40 Potassium 3.8 mmol/L (3.5-5.1) 10/10/22 15:40 Chloride 97 mmol/L (98-107) L 10/10/22 15:40 Carbon Dioxide 20 mmol/L (22-29) L 10/10/22 15:40 Anion Gap 21.8 (5-19) H 10/10/22 15:40 BUN 31 mg/dL (8-23) H 10/10/22 15:40 Creatinine 2.0 mg/dL (0.7-1.2) H 10/10/22 15:40 GFR Calculation Not Reportable 10/10/22 15:40 Glucose 140 mg/dL (65-115) H 10/10/22 15:40 Calculated Osmolality 289 mOsm/kg (285-295) 10/10/22 15:40 Calcium 9.5 mg/dL (8.5-10.5) 10/10/22 15:40 Total Bilirubin 0.8 mg/dL (0.15-1.2) 10/10/22 15:40 AST 20 U/L (0-40) 10/10/22 15:40 ALT 22 U/L (0-41) 02/08/23 15:40 Alkaline Phosphatase 120 U/L (40-130) 10/10/22 15:40 Troponin T Baseline 104 ng/L (0-15) H* 10/10/22 15:40 Total Protein 7.3 g/dL (6.6-8.7) 10/10/22 15:40 Albumin 4.1 g/dL (3.5-5.2) 10/10/22 15:40 Globulin 3.2 g/dL (1.3-4.6) 10/10/22 15:40 TSH 0.41 uIU/mL (0.27-4.20) 10/10/22 15:40 Critical Care Time Critical Care Time: Critical Care Time: Yes Total Critical Care Time: 45 Attestation: The high probability of a clinically significant, sudden or life threatening deterioration of the patient's cardiovascular system(s) required my full and direct attention, intervention and personal management. The critical care time is as shown. This time is in addition to time spent performing any reported procedures but includes the following: [x] Data and vital sign review and interpretation [x] Patient assessment, examination and intervention [x] Documentation [x] Medication orders and management Discharge Plan Discharge Patient Disposition: Admitted As Inpatient Clinical Impression: Atrial flutter, Chest pain, Elevated troponin I level Condition: Stable Coding Level of Care Code ED Commercial [employer] Estate Paralegal for Zechariah Kaur
[2022-10-10 15:55] LABS: Basophils % 0.5 %; Eosinophils # 0.1 10^3/uL (0.0-0.8); Hematocrit 43.3 % (42.0-52.0); Hemoglobin 14.4 g/dL (11.7-16.6); Lymphocytes # 2.1 10^3/uL (0.8-4.8); Lymphocytes % 24.1 %; Mean Corpuscular HGB Conc 33.3 g/dL (30.0-36.0); Mean Corpuscular Hemoglobin 29.1 pg (28.0-34.0); Mean Corpuscular Volume 87.5 fl (80-94); Mean Platelet Volume 10.8 fL (7.4-10.4); Monocytes # 1.2 10^3/uL (0.2-0.9); Monocytes % 13.9 %; Neutrophils # 5.29 10^3/uL (1.8-7.7); Nucleated Red Blood Cells % 0 %; Platelet Count 223 10^3/cmm (130-400); Red Blood Count 4.95 10^6/uL (4.1-5.3); Red Cell Distribution Width 13.4 % (12.1-15.1); White Blood Count 8.8 10^3/uL (4.0-10.0)
[2022-10-10 16:31] LABS: Troponin(5th) Baseline 104 ng/L (0-15)
[2022-10-10 16:34] LABS: Alanine Aminotransferase 22 U/L (0-41); Albumin Level 4.1 g/dL (3.5-5.2); Alkaline Phosphatase 120 U/L (40-130); Anion Gap 21.8 (5-19); Aspartate Amino Transferase 20 U/L (0-40); Blood Urea Nitrogen 31 mg/dL (8-23); Calcium 9.5 mg/dL (8.5-10.5); Carbon Dioxide 20 mmol/L (22-29); Chloride 97 mmol/L (98-107); Globulin 3.2 g/dL (1.3-4.6); Glucose 140 mg/dL (65-115); Osmolality Calculated 289 mOsm/kg (285-295); Potassium 3.8 mmol/L (3.5-5.1); Sodium 135 mmol/L (136-145); Thyroid Stimulating Hormone 0.41 uIU/mL (0.27-4.20); Total Bilirubin 0.8 mg/dL (0.15-1.2); Total Protein 7.3 g/dL (6.6-8.7)
--- NOTE | 2022-10-10 16:39 | PM.HP ---
Providers/Chief Complaint Primary Care Provider: Luana Villegas MD Chief Complaint: chest pain History of Present Illness Jonathan Baker is a 72 year old male with history of CABG, has been recently diagnosed with pneumonia, only finished 3 days of antibiotics, presented with palpitation, chest pain and nausea. No active chest pain at the time of evaluation. Patient has been given adenosine 6 mg then 12 mg and then 100 mg of Cardizem that dropped his blood pressure hence he was switched to amiodarone. Patient is stating that he started experiencing chest pain with palpitations around 9:30 AM when he was watching television. He did not throw up but felt nauseous and short of breath. Lately he has been using oxygen for his sleep apnea. He is also noticing productive sputum without fever, diarrhea or headache. His troponins are high in the ER A-fib RVR currently on amiodarone drip On 2 L of oxygen Productive cough D-dimer unremarkable Review of Systems Const: Denies: fever(s) Eyes: Denies: change in vision ENMT: Denies: throat pain Card: Reports: chest pain and palpitations Resp: Reports: dyspnea and productive cough GI: Reports: abdominal pain, nausea and vomiting : Denies: flank pain Musc: Denies: neck pain Skin/Breast: Denies: rash Neuro: Denies: headache(s) Psych: Reports: anxiety Endo: Denies: polyuria [place]/Lymph: Denies: easy bruising All/Imm: Denies: urticaria Medications/Allergies Home Medications Medication Instructions Recorded Confirmed Last Taken Type aspirin 81 mg tablet,delayed 81 mg PO DAILY 10/14/19 10/10/22 10/09/22 History release (Adult Low Dose Aspirin) ezetimibe 10 mg tablet 10 mg PO DAILY 10/14/19 10/10/22 10/09/22 History allopurinol 100 mg tablet 150 mg PO DAILY 07/20/22 10/10/22 10/09/22 History apixaban 5 mg tablet (Eliquis) 5 mg PO BID 07/20/22 10/10/22 10/09/22 History cetirizine 10 mg tablet (Zyrtec) 10 mg PO DAILY 07/20/22 10/10/22 10/09/22 History cholecalciferol (vitamin D3) 25 75 mcg PO DAILY 07/20/22 10/10/2210/09/23 History mcg (1,000 unit) tablet (Vitamin D3) cromolyn 5.2 mg/spray (4 %) nasal 1 spray intranasal DAILY PRN Nasal 07/20/22 10/10/22 07/25/22 History spray Congestion docusate sodium 100 mg capsule 200 mg PO BID 07/20/22 10/10/22 10/09/22 History (Colace) gabapentin 600 mg tablet 600 mg PO BID 07/20/22 10/10/22 10/09/22 History insulin glargine 100 unit/mL 45 unit SUBCUT BID 07/20/22 10/10/22 10/09/22 History subcutaneous solution lisinopril 10 2 tab PO QAM 07/20/22 10/10/22 10/09/22 History mg-hydrochlorothiazide 12.5 mg tablet metoprolol succinate 50 mg 25 mg PO DAILY 07/20/22 10/10/22 10/09/22 History tablet,extended release 24 hr omega-3 fatty acids 1,000 mg 1,000 mg PO BID 07/20/22 10/10/22 10/09/22 History capsule paroxetine HCl 40 mg tablet (Paxil) 40 mg PO DAILY 07/20/22 10/10/22 10/09/22 History rosuvastatin 40 mg tablet 20 mg PO DAILY 07/20/22 10/10/22 10/09/22 History sodium bicarbonate 650 mg tablet 650 mg PO BID 07/20/22 10/10/22 10/09/22 History tamsulosin 0.4 mg capsule (Flomax) 0.4 mg PO QPM 07/20/22 10/10/22 10/09/22 History glipizide 10 mg tablet 10 mg PO QPM 07/25/22 10/10/22 10/09/22 History nut.tx.gluc.intol,lac-free,soy 1 ea PO BID 07/25/22 10/10/22 Unknown History (Glucerna Shake oral liquid) albuterol sulfate 2.5 mg/3 mL 2.5 mg (3 mL) inhalation Q8H PRN 08/01/22 10/10/22 Unknown Rx (0.083 %) solution for nebulization shortness of breath or wheezing #75 mL fluticasone 500 mcg-salmeterol 50 1 inh inhalation BID #60 ea 08/01/22 10/10/22 10/09/22 Rx mcg/dose blistr powdr for inhalation (Advair Diskus) calcitriol 0.25 mcg capsule 0.25 mcg PO .MW 10/10/22 10/10/22 10/08/22 History coenzyme Q10 100 mg capsule 100 mg PO DAILY 10/10/22 10/10/22 10/09/22 History Allergies Allergy/AdvReac Type Severity Reaction Status Date / Time lovastatin Allergy Unknown Verified 08/07/22 08:18 rosuvastatin [From Crestor] Allergy Unknown Verified 08/07/22 08:18 simvastatin Allergy Unknown Verified 08/07/22 08:18 PFSH Acute PFSH: Medical History Atherosclerosis Chronic atrial fibrillation Depressive disorder Essential hypertension Gout Hyperlipidemia Peripheral neuropathy Surgical History H/O knee surgery History of cholecystectomy Hx of CABG Family History Other Family history of premature coronary artery disease Stroke Social History Smoking and tobacco status: former smoker Vitals/I&O/Wt Last Vital Signs Temp 98.4 F 10/10/22 15:01 Pulse 219 H 10/10/22 15:01 Resp 24 H 10/10/22 15:01 BP 92/49 10/10/22 15:01 Pulse Ox 97 10/10/22 15:01 O2 Del Method 10/10/22 15:01 10/10/22 10/10/22 10/10/22 06:59 14:59 22:59 Intake Total 6.542 / 6.542 Balance 6.542 / 6.542 Weight last 48 hrs Weight 102.058 kg Physical Exam Narrative: Awake and alert Morbidly obese Pleasant cooperative A-fib RVR No adipose tried obesity Mild crackles No signs of edema Family at the bedside Currently on 2 L On amiodarone drip Appears stated age Euvolemic Appears stated age Data 10/10/22 15:40 10/10/22 15:40 A&P Assessment and plan (1) Atrial fibrillation: (2) Troponin level elevated: (3) Atrial fibrillation with rapid ventricular response: (4) Chronic kidney disease: Plan A-fib RVR Start amiodarone drip Transition to p.o. amiodarone tomorrow History of A-fib, takes Eliquis at home NSTEMI: Start ACS protocol patient experience chest pain first troponin 104, trend troponin along serial EKGs We will start therapeutic Lovenox I will do therapeutic Lovenox dose once a day Recent diagnosis of pneumonia we will start levofloxacin Requested sputum culture Chronic hypoxia required 2 L of oxygen at bedtime Patient is full code Cardiac diet Attestations Medical Necessity Statement*: Anticipate discharge within 48 hours Coding Level of Care Code 19167 Diagnoses Atrial fibrillation I48.91 Troponin level elevated R77.8 Atrial fibrillation with rapid ventricular response I48.91 Chronic kidney disease N18.9
[2022-10-10 17:02] LABS: D Dimer 0.41 ug/mIFEU (0-0.59)
--- NOTE | 2022-10-10 17:02 | ECG_ITS ---
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 Measurements Intervals [place] Rate: 113 P: 0 CO: 0 QRS: 67 QRSD: 85 T: 59 QT: 335 QTc: 461 Interpretive Statements ATRIAL FLUTTER/TACHYCARDIA WITH RAPID VENTRICULAR RESPONSE LOW QRS VOLTAGE IN PRECORDIAL LEADS [QRS DEFLECTION < 1.0 mV IN CHEST LEADS] PATTERN CONSISTENT WITH PULMONARY DISEASE POSSIBLE RIGHT VENTRICULAR CONDUCTION DELAY [RSR (QR) IN V1/V2] MODERATE ST DEPRESSION [0.05+ mV ST DEPRESSION] Compared to ECG 10/10/2022 15:25:58 No significant changes Electronically Signed On 10-11-2022 0:27:23 JUNIOR JAVA DEVELOPER by Petty Yoo M.D. [email or web address]
[2022-10-10] MEDS: sodium chloride 0.9% 500 ML 999 ML IV (17:11)
[2022-10-10 18:26] LABS: Troponin 5 2HR 223.9 ng/L (0-15)
[2022-10-10 18:27] LABS: Troponin 5 2HR Delta 119.9 ABS# (0-10)
--- NOTE | 2022-10-10 19:03 | PC.NURSE ---
Report from Ann ONTIVEROS. Patient does not appear in any distress at this time. Heart rate 113, on amio drip. Visitor at bedside.
[2022-10-10] MEDS: metoprolol tartrate 25 mg Tablet PO (21:24)
[2022-10-10] MEDS: sodium bicarbonate 650 mg Tablet PO (21:24)
[2022-10-10] MEDS: docusate sodium 100 mg Capsule 200 MG PO (21:24)
[2022-10-10] MEDS: tamsulosin 0.4 mg Capsule PO (21:25)
[2022-10-10] MEDS: lactated ringers 500 ML 999 ML IV (21:25)
[2022-10-10] MEDS: insulin glargine 100 units/1 mL 45 UNIT SUBCUT (21:52)
[2022-10-10 22:47] LABS: Troponin 5 6HR 379.8 ng/L (0-15); Troponin 5 6HR Delta 275.8 ng/L (0-12)
--- NOTE | 2022-10-10 23:07 | PC.NURSE ---
Dr Emerson called about patient critical troponin, no new orders.
[2022-10-11] VITALS (18 sets, daily range): BP systolic 85–136; BP diastolic 48–86; PULSE 90–108; RESP 13–20; O2SAT 90–97
--- NOTE | 2022-10-11 00:10 | PC.PHAR ---
Renal dosing for Levaquin 750mg daily changed to q48h due to crcl <50 Thank you, Meryl Barraza h
[2022-10-11 04:49] LABS: Anion Gap 16.7 (5-19); Blood Urea Nitrogen 32 mg/dL (8-23); C Reactive Protein 9.2 mg/L (0.0-4.9); Calcium 8.3 mg/dL (8.5-10.5); Carbon Dioxide 24 mmol/L (22-29); Chloride 97 mmol/L (98-107); Glucose 162 mg/dL (65-115); Magnesium 1.2 mg/dL (1.7-2.3); Osmolality Calculated 288 mOsm/kg (285-295); Phosphorus 3.3 mg/dL (2.5-4.5); Potassium 3.7 mmol/L (3.5-5.1); Sodium 134 mmol/L (136-145)
[2022-10-11] MEDS: allopurinol 100 mg Tablet 150 MG PO (09:36)
[2022-10-11] MEDS: docusate sodium 100 mg Capsule 200 MG PO ×2 (09:37→17:39)
[2022-10-11] MEDS: aspirin 81 mg EC Tablet PO (09:37)
[2022-10-11] MEDS: levoFLOXacin 750 mg Tablet PO (09:37)
[2022-10-11] MEDS: gabapentin 300 mg Capsule 600 MG PO ×2 (09:38→17:39)
[2022-10-11] MEDS: sodium bicarbonate 650 mg Tablet PO ×2 (09:38→17:39)
[2022-10-11] MEDS: enoxaparin 100 mg/mL Syringe SUBCUT ×2 (09:39→19:52)
[2022-10-11] MEDS: metoprolol tartrate 25 mg Tablet PO ×2 (09:42→19:52)
[2022-10-11] MEDS: magnesium sulfate premix 2 GM/50 ML PIGGYBACK IV ×2 (09:44→15:20)
--- NOTE | 2022-10-11 10:35 | PM.CONSULT ---
Providers/Reason For Consult Consulting Physician/Specialty*: Dr. Gallo, Cardiology Reason for Consult*: Atrial flutter, elevated troponin Attending Physician: Beltran Deal MD Primary Care Provider: Luana Villegas MD History of Present Illness History of Present Illness Jonathan Baker is a 72 year old male past medical history of CAD s/p CABG ?2 (CANTOR to LAD and right radial to D1) in April, by Dr. Connell, hypertension, Atrial flutter/fib,HLD, statin intolerance, CKD stage 3 (baseline 1.5-1.9) and TYRESE. He also has history of hypertension, diabetes mellitus type II, diabetic nephropathy, history of DVT and PE s/p IVC filter, history of paroxysmal atrial fibrillation post CABGx 2. He presented to the hospital with chest discomfort and palpitations.?He was recently diagnsoed with PNA and was started outpatient on antibiotics. He was found to be in Atrial flutter with RVR. He was treated with adenosine 6 mg --> 12 mg f/b cardizem that dropped his Bp and was started on amiodarone gtt .? He was hospitalized in July. EKG does not show any significant ischemic changes.? Echo shows a grossly normal LV systolic function and stress test did not reveal any ischemia. Review of Systems Const: Denies: fever(s) Eyes: Denies: change in vision ENMT: Denies: throat pain Card: Reports: chest pain and palpitations Resp: Reports: dyspnea and productive cough GI: Reports: abdominal pain, nausea and vomiting : Denies: flank pain Musc: Denies: neck pain Skin/Breast: Denies: rash Neuro: Denies: headache(s) Psych: Reports: anxiety Endo: Denies: polyuria Nilson/Lymph: Denies: easy bruising All/Imm: Denies: urticaria Medications/Allergies Home Medications Medication Instructions Recorded Confirmed Last Taken Type aspirin 81 mg tablet,delayed 81 mg PO DAILY 10/14/19 10/10/22 10/09/22 History release (Adult Low Dose Aspirin) ezetimibe 10 mg tablet 10 mg PO DAILY 10/14/19 10/10/22 10/09/22 History allopurinol 100 mg tablet 150 mg PO DAILY 07/20/22 10/10/22 10/09/22 History apixaban 5 mg tablet (Eliquis) 5 mg PO BID 07/20/22 10/10/22 10/09/22 History cetirizine 10 mg tablet (Zyrtec) 10 mg PO DAILY 07/20/22 10/10/22 10/09/22 History cholecalciferol (vitamin D3) 25 75 mcg PO DAILY 07/20/22 10/10/22 10/09/22 History mcg (1,000 unit) tablet (Vitamin D3) cromolyn 5.2 mg/spray (4 %) nasal 1 spray intranasal DAILY PRN Nasal 07/20/22 10/10/22 07/25/22 History spray Congestion docusate sodium 100 mg capsule 200 mg PO BID 07/20/22 10/10/22 10/09/22 History (Colace) gabapentin 600 mg tablet 600 mg PO BID 07/20/22 10/10/22 10/09/22 History insulin glargine 100 unit/mL 45 unit SUBCUT BID 07/20/22 10/10/22 10/09/22 History subcutaneous solution lisinopril 10 2 tab PO QAM 07/20/22 10/10/22 10/09/22 History mg-hydrochlorothiazide 12.5 mg tablet metoprolol succinate 50 mg 25 mg PO DAILY 07/20/22 10/10/22 10/09/22 History tablet,extended release 24 hr omega-3 fatty acids 1,000 mg 1,000 mg PO BID 07/20/22 10/10/22 10/09/22 History capsule paroxetine HCl 40 mg tablet (Paxil) 40 mg PO DAILY 07/20/22 10/10/22 10/09/22 History rosuvastatin 40 mg tablet 20 mg PO DAILY 07/20/22 10/10/22 10/09/22 History sodium bicarbonate 650 mg tablet 650 mg PO BID 07/20/22 10/10/22 10/09/22 History tamsulosin 0.4 mg capsule (Flomax) 0.4 mg PO QPM 07/20/22 10/10/22 10/09/22 History glipizide 10 mg tablet 10 mg PO QPM 07/25/22 10/10/22 10/09/22 History nut.tx.gluc.intol,lac-free,soy 1 ea PO BID 07/25/22 10/10/22 Unknown History (Glucerna Shake oral liquid) albuterol sulfate 2.5 mg/3 mL 2.5 mg (3 mL) inhalation Q8H PRN 08/01/22 10/10/22 Unknown Rx (0.083 %) solution for nebulization shortness of breath or wheezing #75 mL fluticasone 500 mcg-salmeterol 50 1 inh inhalation BID #60 ea 08/01/22 10/10/22 10/09/22 Rx mcg/dose blistr powdr for inhalation (Advair Diskus) calcitriol 0.25 mcg capsule 0.25 mcg PO .MWF 10/10/22 10/10/22 10/08/22 History coenzyme Q10 100 mg capsule 100 mg PO DAILY 10/10/22 10/10/22 10/09/22 History Allergies Allergy/AdvReac Type Severity Reaction Status Date / Time No Known Allergies Allergy Verified 10/11/22 19:43 Current Medications Generic Name Dose Route Start Last Admin Trade Name Freq PRN Reason Stop Dose Admin Allopurinol 150 mg 10/11/22 09:00 10/11/22 09:36 Allopurinol 100 Mg Tablet PO 150 mg DAILY BEVERLY Administration Aspirin 81 mg 10/11/22 09:00 10/11/22 09:37 Aspirin 81 Mg Ec Tablet PO 81 mg DAILY BEVERLY Administration Docusate Sodium 200 mg 10/10/22 21:04 10/11/22 09:37 Docusate Sodium 100 Mg Capsule PO 200 mg BID BEVERLY Administration Enoxaparin Sodium 100 mg 10/11/22 09:00 10/11/22 09:39 Enoxaparin 100 Mg/Ml Syringe SUBCUT 100 mg DAILY BEVERLY Administration Gabapentin 600 mg 10/11/22 09:00 10/11/22 09:38 Gabapentin 300 Mg Capsule PO 600 mg BID BEVERLY Administration Amiodarone HCl 900 mg/ 518 mls @ 0 mls/hr 10/10/22 16:15 10/10/22 23:23 Dextrose/ IV Miscellaneous IV 0.5 mg/min Supplies .Q0M [facility] 17.27 mls/hr Titration Protocol Per Protocol Insulin Glargine 45 unit 10/10/22 21:04 10/11/22 09:39 Insulin Glargine 100 Units/1 Ml SUBCUT Not Given BID [facility] Levofloxacin 750 mg 10/11/22 09:00 10/11/22 09:37 Levofloxacin 750 Mg Tablet PO 750 mg Q48H BEVERLY Administration Protocol Metoprolol Tartrate 25 mg 10/10/22 21:04 10/11/22 09:42 Metoprolol Tartrate 25 Mg Tablet PO 25 mg BID@0900,2100 BEVERLY Administration Sodium Bicarbonate 650 mg 10/10/22 21:04 10/11/22 09:38 Sodium Bicarbonate 650 Mg Tablet PO 650 mg BID BEVERLY Administration Tamsulosin HCl 0.4 mg 10/10/22 21:04 10/10/22 21:25 Tamsulosin 0.4 Mg Capsule PO 0.4 mg QPM BEVERLY Administration PFSH Acute PFSH: Medical History (Updated 10/11/22 @ 13:37 by Glory Gallo MD) Atherosclerosis Chronic atrial fibrillation Depressive disorder Essential hypertension Gout Hyperlipidemia Peripheral neuropathy Surgical History H/O knee surgery History of cholecystectomy Hx of CABG Family History Other Family history of premature coronary artery disease Stroke Social History Smoking and tobacco status: former smoker Vitals/I&O/Wt Last Vital Signs Temp 98.4 F 10/10/22 15:01 Pulse 90 10/11/22 08:00 Resp 16 10/11/22 08:00 BP 130/86 10/11/22 07:36 Pulse Ox 92 10/11/22 08:00 O2 Del Method 10/11/22 08:00 O2 Flow Rate 2 10/11/22 08:00 10/10/22 10/11/22 10/11/22 22:59 06:59 14:59 Intake Total 609.542 / 609.542 723.294 / 1332.836 Balance 609.542 / 609.542 723.294 / 1332.836 Weight last 48 hrs Weight 225 lb Physical Exam Const: COMMON NORMALS: no acute distress, patient oriented x3 and alert GENERAL APPEARANCE: cooperative, comfortable, well kempt and well hydrated HENMT: COMMON NORMALS: hearing grossly normal bilaterally and external ears normal FACE & SINUS: normal facial exam EXTERNAL EAR: Yes external ears normal Eye: COMMON NORMALS: EOMs intact bilaterally and no scleral icterus GENERAL EYE: appearance normal, both eyes and all related structures Neck/C-Spine: COMMON NORMALS: supple and no JVD GENERAL: Yes normal visual inspection CAROTIDS: Yes normal carotid upstroke Chest: COMMONS NORMALS: normal inspection of the chest and normal palpation of entire chest wall CHEST: Yes Symmetrical chest wall rise and No tenderness Resp: COMMON NORMALS: clear to auscultation bilaterally AUSCULTATION: clear to auscultation bilaterally, no crackles, no rales, no rhonchi and no wheezes Cardio: COMMON NORMALS: no JVD, regular rate, regular rhythm, S1 normal heart sound present and S2 normal heart sound present RATE: regular rate RHYTHM: regular rhythm HEART SOUNDS: S1 normal heart sound present, S2 normal heart sound present, no gallops and no murmurs BRUITS: no carotid bruits GI: COMMON NORMALS: Soft to palpation AUSCULTATION: Yes normoactive bowel sounds PALPATION: Yes Soft to palpation, No Tenderness to palpation present (GI) and No Guarding due to palpation present (GI) Extremity: GENERAL: No cyanosis, No edema and No pallor Neuro: COMMON NORMALS: patient oriented x3 and no focal motor deficits SENSORIUM/ORIENTATION: Yes alert Psych: COMMON NORMALS: Normal thought process present and speech normal APPEARANCE: Yes well kempt SPEECH: Yes normal speech MOOD & AFFECT: Yes euthymic mood THOUGHT PROCESS: Normal thought process present THOUGHT CONTENT: Yes Normal thought content present Data 10/10/22 15:40 10/11/22 04:30 Other Labs: Troponin T 104--> 224--> 380 Other data: Lexiscan sestamibi MPI (07/25/2022) IMPRESSIONS ?1. Myocardial perfusion imaging is normal.? Attenuation artifact in ?anterolateral and apical segments. ?2. Overall left ventricular systolic function is normal without regional wall ?motion abnormalities, LVEF=72%. ?3. EKG portion of the study will be reported separately. ?4. No coronary ischemia based on this study. TTE (07/21/2022) CONCLUSIONS ?Technically limited quality echocardiogram because of poor ?ultrasonic windows. ?LV systolic function is grossly normal ?Left atrium is dilated ?Mitral valve is thickened.? Mild mitral regurgitation ?Trace tricuspid regurgitation ?Mild pulmonic regurgitation ?Compared to prior echocardiogram from 04/2019, no significant ?changes are seen A&P Assessment and plan (1) Atrial flutter: [id number]= at least 4/9 , one for hypertension, one for age, one for diabetes,one for CAD -On therapeutic lovenox -On amio gtt -start on PO amiodarone 400 mg BID -May need cardioversion (2) Chest pain: likley in setting of atrial flutter with RVR (3) NSTEMI (non-ST elevated myocardial infarction): NSTEMI likely type 2 -No ischemia on recent stress test -will check on renal function, patient symptoms and repeat troponin in am. Further w/u based on that. -This was discussed with patient and his and they were agreeable with the plan. (4) Hx of CABG: CAD with h/o CABGx 2 Plan Obesity HLD COPD DM-2 Diabetic nephropathy CKD stage 3 Patient seen today via Telehealth by agreement and consent of patient. Telehealth technology used during the visit include video and audio. Exam was conducted with the help of bedside nurse. Time spent in encounter 40 minutes with >50% time spent face to face. Coding Level of Care Code 19839 Diagnoses Atrial flutter I48.92 Chest pain R07.9 NSTEMI (non-ST elevated myocardial infarction) I21.4 Hx of CABG Z95.1
--- NOTE | 2022-10-11 10:42 | PM.PN ---
Subjective Subjective: D-dimer unremarkable Troponin trending up to 404 119 275 No active chest pain Overnight patient did well on amiodarone drip Current heart rate 110s No active chest pain shortness of breath, confusion Patient is n.p.o. Dr. Leigh was consulted by the job specification writer Potassium 3.7 Magnesium 1.2 We will touch base with Dr. Gallo this morning Vitals/I&O/Wt Last Vital Signs Temp 98.4 F 10/10/22 15:01 Pulse 90 10/11/22 08:00 Resp 16 10/11/22 08:00 BP 130/86 10/11/22 07:36 Pulse Ox 92 10/11/22 08:00 O2 Del Method 10/11/22 08:00 O2 Flow Rate 2 10/11/22 08:00 10/10/22 10/11/22 10/11/22 22:59 06:59 14:59 Intake Total 609.542 / 609.542 723.294 / 1332.836 Balance 609.542 / 609.542 723.294 / 1332.836 Weight last 48 hrs Weight 102.058 kg Physical Exam Narrative: Patient is euvolemic Laying supine Current heart rate 110s A-fib RVR Currently doing well on 2 L nasal cannula Pleasant and cooperative Present. Abdomen soft Was not cooperative Nonfocal neuro exam Data 10/10/22 15:40 10/11/22 04:30 A&P Assessment and plan (1) Atrial flutter: (2) NSTEMI (non-ST elevated myocardial infarction): (3) Chronic kidney disease: (4) Atrial fibrillation: (5) Hx of CABG: Plan Symptomatic atrial fibrillation NSTEMI Chronic kidney disease Hypokalemia, hypomagnesemia Hypomagnesemia: Repleted Replenish potassium Continue amiodarone for 24 hours then transition to p.o. regimen We will follow-up with cardiology for further recommendations He has been given therapeutic Lovenox yesterday when troponin was 109 Currently in A-fib RVR, he is on metoprolol 25 mg twice daily along amiodarone Chronic kidney disease at baseline Patient [facility] he has only finished 3 doses at home, I have continue levofloxacin for now given every 48 hours He is on therapeutic dose of Lovenox once a day because of chronic kidney disease Full code N.p.o., advance diet after cardiology consultation He carries history of CABG no active chest pain History of sleep apnea uses 2 L of oxygen at baseline at night Attestations Medical Necessity Statement*: Continue medical management Coding Level of Care Code 60785 Diagnoses Atrial flutter I48.92 NSTEMI (non-ST elevated myocardial infarction) I21.4 Chronic kidney disease N18.9 Atrial fibrillation I48.91 Hx of CABG Z95.1
[2022-10-11] MEDS: sodium chloride 0.9% 500 ML 999 ML IV (11:37)
[2022-10-11] MEDS: ipratropium-albuterol 3 mL Neb INHALATION (13:34)
[2022-10-11] MEDS: amiodarone 200 mg Tablet 400 MG PO ×2 (15:19→19:51)
[2022-10-11 16:40] LABS: Glucose Point of Care 161 mg/dL (70-110)
--- NOTE | 2022-10-11 17:00 | PC.NURSE ---
amiodarone drip stopped per order initiated first dose of oral amiodarone 400 mg as ordered given an hr ago.
[2022-10-11] MEDS: insulin glargine 100 units/1 mL 45 UNIT SUBCUT (17:38)
[2022-10-11] MEDS: tamsulosin 0.4 mg Capsule PO (17:39)
[2022-10-11 21:09] LABS: Glucose Point of Care 146 mg/dL (70-110)
[2022-10-12] VITALS (13 sets, daily range): BP systolic 95–139; BP diastolic 65–94; PULSE 100–106; RESP 16–26; TEMP 36.6–36.8; O2SAT 90–97
[2022-10-12 04:04] LABS: Basophils # 0.1 10^3/uL (0.0-0.1); Basophils % 0.8 %; Eosinophils # 0.2 10^3/uL (0.0-0.8); Eosinophils % 2.6 %; Hematocrit 39.8 % (42.0-52.0); Hemoglobin 13.2 g/dL (11.7-16.6); Lymphocytes # 1.4 10^3/uL (0.8-4.8); Lymphocytes % 21.1 %; Mean Corpuscular HGB Conc 33.2 g/dL (30.0-36.0); Mean Corpuscular Volume 90.5 fl (80-94); Mean Platelet Volume 10.5 fL (7.4-10.4); Monocytes # 0.8 10^3/uL (0.2-0.9); Monocytes % 11.9 %; Neutrophils # 4.11 10^3/uL (1.8-7.7); Nucleated Red Blood Cells % 0 %; Platelet Count 152 10^3/cmm (130-400); Red Cell Distribution Width 13.4 % (12.1-15.1); White Blood Count 6.5 10^3/uL (4.0-10.0)
[2022-10-12 04:41] LABS: Anion Gap 19.2 (5-19); Blood Urea Nitrogen 36 mg/dL (8-23); Calcium 8.5 mg/dL (8.5-10.5); Carbon Dioxide 22 mmol/L (22-29); Chloride 100 mmol/L (98-107); Glucose 128 mg/dL (65-115); Osmolality Calculated 294 mOsm/kg (285-295); Potassium 4.2 mmol/L (3.5-5.1); Sodium 137 mmol/L (136-145)
[2022-10-12 04:45] LABS: Troponin T (5th) Once 250 ng/L (0-15)
[2022-10-12 06:11] LABS: Glucose Point of Care 115 mg/dL (70-110)
[2022-10-12] MEDS: gabapentin 300 mg Capsule 600 MG PO ×2 (08:28→17:47)
[2022-10-12] MEDS: sodium bicarbonate 650 mg Tablet PO ×2 (08:28→17:47)
[2022-10-12] MEDS: docusate sodium 100 mg Capsule 200 MG PO ×2 (08:28→17:47)
[2022-10-12] MEDS: potassium chloride ER 20 mEq Tablet PO (08:28)
[2022-10-12] MEDS: aspirin 81 mg EC Tablet PO (08:28)
[2022-10-12] MEDS: allopurinol 100 mg Tablet 150 MG PO (08:29)
[2022-10-12] MEDS: metoprolol tartrate 25 mg Tablet PO (08:59)
[2022-10-12] MEDS: amiodarone 200 mg Tablet 400 MG PO ×2 (08:59→20:40)
[2022-10-12] MEDS: enoxaparin 100 mg/mL Syringe SUBCUT ×2 (09:03→20:40)
--- NOTE | 2022-10-12 11:12 | PC.CHAP ---
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 electric frying pan repairer visit [] Patient/Family/Request visit [] Outpatient visit [] Follow-up visit [] Physician referral [] Code/Alert [x] Routine visit [] Staff referral [] Actively dying [] Patient sleeping [x] Family support [] [] Out of room [] Palliative care [] [] Receiving care in room [] Pre-surgical visit [] Trauma [] Long length of stay [] ICU visit [] Other: Relational/Emotional Strength [x] Patient feels connected with others/family/visitors/staff [] Distress [] Loneliness/isolation [] Abandonment Spirituality of Patient [x] Person of Lizbeth [] Attends Yarsanism of their Lizbeth [x] Believes in Prayer [] Reads Bible or Baptism materials [] There are Spiritual issues to be addressed 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 Interventions [x] Prayer [] Active listening [] Non-anxious presence [] Spiritual/emotional support [] Crisis/trauma care [] Spiritual counseling [] Bereavement support [] Provided bereavement packet [x] Provided Bible/devotional materials [] Provided toy/stuffed animal, coloring book to patient or family member [] Provided Communion [] Anointing/[place] [] Salvation [] Completed spiritual assessment [] Other: Impact on Illness or Injury [] Angry [] Fearful [] Anxious [] Often cries [] Exhaustion [] Unable to work [] Unable to attend protestant [] Unable to walk/stand [] Unable to read [] Unable to drive [] Unable to eat/drink [] Unable to sleep [] Unable to be with family [] Patient intubated [] Other: Summary Time spent with patient 5min
[2022-10-12 11:29] LABS: Glucose Point of Care 127 mg/dL (70-110)
--- NOTE | 2022-10-12 15:26 | P.PN_ITS ---
Subjective Subjective: Franklin is 72 years old and was admitted couple days ago with recurrent atrial fibrillation. He had a rapid ventricular response. His troponin has been elevated as a result of this. His first troponin was 114, the second to 23, the third 379. For some reason he was treated with adenosine 6 mg then 12 mg. This of course did not convert him. He was placed on an amiodarone drip. Yesterday he was transferred from intravenous amiodarone to p.o. amiodarone. Prior to his admission to the hospital he was on Eliquis. He is now on Lovenox. He does have coronary disease and had bypass surgery sometime ago. He has a left internal mammary to the LAD and a radial artery to the first diagonal. A sestamibi examination was negative for ischemia on August 01 of last year. By echo he has normal LV function. He does have chronic kidney disease with a creatinine at 2.0. He has not converted to sinus rhythm despite the amiodarone. He is interested in cardioversion before he goes home. His other problems include the above- mentioned coronary artery disease, hypertension, dyslipidemia, chronic kidney disease, statin intolerance, diabetes, history of DVT post IVC filter and obesity. He seems to be doing well. His heart rate hovers around 100 are a little higher despite the medications. He ate lunch and so cardioversion today is not possible. Vitals/I&O/Wt Last Vital Signs Temp 97.9 F 10/12/22 08:23 Pulse 102 H 10/12/22 12:00 Resp 18 10/12/22 10:00 BP 120/94 10/12/22 12:00 Pulse Ox 96 10/12/22 13:41 O2 Del Method 10/12/22 12:00 O2 Flow Rate 2 10/12/22 10:00 10/12/22 10/12/22 10/12/22 06:59 14:59 22:59 Intake Total 240 / 1614.706 354 / 354 Balance 240 / 964.706 354 / 354 Weight last 48 hrs Weight 228 lb 4.8 oz Physical Exam Narrative: GENERAL: In general he is awake and alert. HEENT: Exam within normal limits. NECK: Supple without jugular vein distention. The carotid upstroke is normal without bruits. BACK: Exam normal. LUNGS: Clear. HEART: Irregularly irregular rhythm ABDOMEN: Benign without organomegaly or tenderness. EXTREMITIES: No edema. NEUROLOGIC: Exam normal. SKIN: Unremarkable. Data 10/12/22 03:50 10/12/22 03:50 A&P Assessment and plan (1) Essential hypertension: (2) Atrial flutter: (3) Chest pain: (4) Elevated troponin I level: (5) Chronic kidney disease: (6) Atrial fibrillation: (7) Creatinine elevation: (8) Hx of CABG: Plan We will schedule cardioversion for 8:00 tomorrow morning. I have contacted anesthesiology. We will keep him n.p.o. overnight. I spoke to the patient about this. Medications will continue as currently prescribed. I spoke to the hospitalist as well. Attestations 2 Medical Necessity Statement*: Hospitalization required for treatment of atrial fibrillation and need for cardioversion. and Moderate Time for a total of 30 minutes, includes reviewing past or interval history, examining/interviewing patient, placing orders, counseling patient/family/other support, discussing plan of care with staff and communicating with other healthcare providers Diagnoses Essential hypertension I10 Atrial flutter I48.92 Chest pain R07.9 Elevated troponin I level R77.8 Chronic kidney disease N18.9 Atrial fibrillation I48.91 Creatinine elevation R79.89 Hx of CABG Z95.1
--- NOTE | 2022-10-12 15:32 | ANES.PREANE2 ---
Pre-Anesthetic Assessment Height/Weight: Height 1.75 m Weight 103.555 kg Temp Pulse Resp BP Pulse Ox O2 Del Method O2 Flow Rate 97.9 F 102 H 18 120/94 96 2 10/12/22 08:23 10/12/22 12:00 10/12/22 10:00 10/12/22 12:00 10/12/22 13:41 10/12/22 12:00 10/12/22 10:00 Cardioversion Familial anesthetic complications: None Last intake: Lunch at 1230 Social No alcohol and No tobacco Exam alert, oriented x 3, clear to auscultation bilaterally and regular rate & rhythm (a fib w/ rvr) Airway Mallampati: Class IV Dentition: chipped Comments: Comments: full casey Pulmonary 2 L O2 at night CV/HEM Atrial Fibrillation, Coronary Artery Disease (CABG), Deep Vein Thrombosis (s/p IVC filter), Hypertension and Myocardial Infarction Metabolic Diabetes Mellitus, Hyperlipidemia and Morbid Obesity Anesthetic Plan ASA status: 4 Anesthesia: MAC Risk of > 500 ml blood loss (7ml/kg in children): No Medications/Allergies Home Medications Medication Instructions Recorded Confirmed Last Taken Type aspirin 81 mg tablet,delayed 81 mg PO DAILY 10/14/19 10/10/22 10/09/22 History release (Adult Low Dose Aspirin) ezetimibe 10 mg tablet 10 mg PO DAILY 10/14/19 10/10/22 10/09/22 History allopurinol 100 mg tablet 150 mg PO DAILY 07/20/22 10/10/22 10/09/22 History apixaban 5 mg tablet (Eliquis) 5 mg PO BID 07/20/22 10/10/22 10/09/22 History cetirizine 10 mg tablet (Zyrtec) 10 mg PO DAILY 07/20/22 10/10/22 10/09/22 History cholecalciferol (vitamin D3) 25 75 mcg PO DAILY 07/20/22 10/10/22 10/09/22 History mcg (1,000 unit) tablet (Vitamin D3) cromolyn 5.2 mg/spray (4 %) nasal 1 spray intranasal DAILY PRN Nasal 07/20/22 10/10/22 07/25/22 History spray Congestion docusate sodium 100 mg capsule 200 mg PO BID 07/20/22 10/10/22 10/09/22 History (Colace) gabapentin 600 mg tablet 600 mg PO BID 07/20/22 10/10/22 10/09/22 History insulin glargine 100 unit/mL 45 unit SUBCUT BID 07/20/22 10/10/22 10/09/22 History subcutaneous solution lisinopril 10 2 tab PO QAM 07/20/22 10/10/22 10/09/22 History mg-hydrochlorothiazide 12.5 mg tablet metoprolol succinate 50 mg 25 mg PO DAILY 07/20/22 10/10/22 10/09/22 History tablet,extended release 24 hr omega-3 fatty acids 1,000 mg 1,000 mg PO BID 07/20/22 10/10/22 10/09/22 History capsule paroxetine HCl 40 mg tablet (Paxil) 40 mg PO DAILY 07/20/22 10/10/22 10/09/22 History rosuvastatin 40 mg tablet 20 mg PO DAILY 07/20/22 10/10/22 10/09/22 History sodium bicarbonate 650 mg tablet 650 mg PO BID 07/20/22 10/10/22 10/09/22 History tamsulosin 0.4 mg capsule (Flomax) 0.4 mg PO QPM 07/20/22 10/10/22 10/09/22 History glipizide 10 mg tablet 10 mg PO QPM 07/25/22 10/10/22 10/09/22 History nut.tx.gluc.intol,lac-free,soy 1 ea PO BID 07/25/22 10/10/22 Unknown History (Glucerna Shake oral liquid) albuterol sulfate 2.5 mg/3 mL 2.5 mg (3 mL) inhalation Q8H PRN 08/01/22 10/10/22 Unknown Rx (0.083 %) solution for nebulization shortness of breath or wheezing #75 mL fluticasone 500 mcg-salmeterol 50 1 inh inhalation BID #60 ea 08/01/22 10/10/22 10/09/22 Rx mcg/dose blistr powdr for inhalation (Advair Diskus) calcitriol 0.25 mcg capsule 0.25 mcg PO .MWF 10/10/22 10/10/22 10/08/22 History coenzyme Q10 100 mg capsule 100 mg PO DAILY 10/10/22 10/10/22 10/09/22 History Allergies Allergy/AdvReac Type Severity Reaction Status Date / Time No Known Allergies Allergy Verified 10/11/22 19:43 Current Medications Generic Name Dose Route Start Last Admin Trade Name Don PRN Reason Stop Dose Admin Albuterol/Ipratropium 3 ml 10/10/22 21:04 10/11/22 13:34 Ipratropium-Albuterol 3 Ml Neb INHALATION 3 ml Q6H PRN Administration SHORTNESS OF BREATH Allopurinol 150 mg 10/11/22 09:00 10/12/22 08:29 Allopurinol 100 Mg Tablet PO 150 mg DAILY BEVERLY Administration Amiodarone HCl 400 mg 10/11/22 13:35 10/12/22 08:59 Amiodarone 200 Mg Tablet PO 400 mg 899,2099 BEVERLY Administration Aspirin 81 mg 10/11/22 09:00 10/12/22 08:28 Aspirin 81 Mg Ec Tablet PO 81 mg DAILY BEVERLY Administration Docusate Sodium 200 mg 10/10/22 21:04 10/12/22 08:28 Docusate Sodium 100 Mg Capsule PO 200 mg BID BEVERLY Administration Enoxaparin Sodium 100 mg 10/11/22 21:30 10/12/22 09:03 Enoxaparin 100 Mg/Ml Syringe SUBCUT 100 mg Q12H BEVERLY Administration Gabapentin 600 mg 10/11/22 09:00 10/12/22 08:28 Gabapentin 300 Mg Capsule PO 600 mg BID BEVERLY Administration Insulin Glargine 45 unit 10/10/22 21:04 10/12/22 09:01 Insulin Glargine 100 Units/1 Ml SUBCUT Not Given BID BEVERLY Levofloxacin 750 mg 10/11/22 09:00 10/11/22 09:37 Levofloxacin 750 Mg Tablet PO 750 mg Q48H BEVERLY Administration Protocol Metoprolol Tartrate 25 mg 10/10/22 21:04 10/12/22 08:59 Metoprolol Tartrate 25 Mg Tablet PO 25 mg BID@899,2099 BEVERLY Administration Potassium Chloride 20 meq 10/12/22 09:00 10/12/22 08:28 Potassium Chloride Er 20 Meq Tablet PO 20 meq DAILY BEVERLY Administration Sodium Bicarbonate 650 mg 10/10/22 21:04 10/12/22 08:28 Sodium Bicarbonate 650 Mg Tablet PO 650 mg BID BEVERLY Administration Tamsulosin HCl 0.4 mg 10/10/22 21:04 10/11/22 17:39 Tamsulosin 0.4 Mg Capsule PO 0.4 mg QPM BEVERLY Administration PFSH Anesthesia Medical History (Updated 10/11/22 @ 13:37 by Glory Gallo MD) Atherosclerosis Chronic atrial fibrillation Depressive disorder Essential hypertension Gout Hyperlipidemia Peripheral neuropathy Surgical History H/O knee surgery History of cholecystectomy Hx of CABG Family History Other Family history of premature coronary artery disease Stroke Social History Smoking and tobacco status: former smoker Data Anesthesia 10/12/22 03:50 10/12/22 03:50 Short CBC 10/10/22 10/12/22 Range/Units 15:40 03:50 WBC 8.8 6.5 (4.0-10.0) 10^3/uL Hgb 14.4 13.2 (11.7-16.6) g/dL Hct 43.3 39.8 L (42.0-52.0) % MCV 87.5 90.5 (80-94) fl Plt Count 223 152 (130-400) 10^3/cmm Neut % (Auto) 60.0 63.0 % Neut # (Auto) 5.29 4.11 (1.8-7.7) 10^3/uL BMP 10/10/22 10/11/22 10/12/22 15:40 04:30 03:50 Sodium 135 L 134 L 137 Potassium 3.8 3.7 4.2 Chloride 97 L 97 L 100 Carbon Dioxide 20 L 24 22 BUN 31 H 32 H 36 H Creatinine 2.0 H 1.9 H 2.0 H Glucose 140 H 162 H 128 H Calcium 9.5 8.3 L 8.5 Cardiac Enzymes 10/10/22 10/10/22 10/10/22 Range/Units 15:40 17:40 21:40 Troponin T Gen 5 ng/L (0-15) ng/L Troponin T Baseline 104 H* (0-15) ng/L Troponin T 120 Minute 223.9 H (0-15) ng/L Delta Troponin T 119.9 H* (0-10) ABS# Troponin T Hi Sens 6Hr 379.8 H (0-15) ng/L Troponin T Hi Sens 6Hr Delta 275.8 H* (0-12) ng/L 10/12/22 Range/Units 03:50 Troponin T Gen 5 ng/L 250 H* (0-15) ng/L Troponin T Baseline (0-15) ng/L Troponin T 120 Minute (0-15) ng/L Delta Troponin T (0-10) ABS# Troponin T Hi Sens 6Hr (0-15) ng/L Troponin T Hi Sens 6Hr Delta (0-12) ng/L Liver Function 10/10/22 Range/Units 15:40 Total Bilirubin 0.8 (0.15-1.2) mg/dL AST 20 (0-40) U/L ALT 22 (0-41) U/L Alkaline Phosphatase 120 (40-130) U/L Albumin 4.1 (3.5-5.2) g/dL Coags 10/10/22 10/11/22 14:50 04:30 D-Dimer 0.41 C-Reactive Protein 9.2 H Cardiac Studies: Echocardiogram 07/21/22 Sestamibi Stress Test (Cardiology) 08/01/22
--- NOTE | 2022-10-12 15:57 | PM.PN ---
Subjective Subjective: There is plan for cardioversion Random blood pressure readings have been on the lower side however repeat blood pressure is fine No active dizziness patient felt slightly dizzy on getting up out of his bed Vitals/I&O/Wt Last Vital Signs Temp 97.9 F 10/12/22 08:23 Pulse 102 H 10/12/22 12:00 Resp 18 10/12/22 10:00 BP 120/94 10/12/22 12:00 Pulse Ox 96 10/12/22 13:41 O2 Del Method 10/12/22 12:00 O2 Flow Rate 2 10/12/22 10:00 10/12/22 10/12/22 10/12/22 06:59 14:59 22:59 Intake Total 240 / 1614.706 590 / 590 Balance 240 / 964.706 590 / 590 Weight last 48 hrs Weight 103.555 kg Physical Exam Narrative: A-fib S1, S2 variable Abdomen soft Awake and alert Pleasant cooperative Doing well on room air Uses 15 Data 10/12/22 03:50 10/12/22 03:50 A&P Assessment and plan (1) Essential hypertension: (2) NSTEMI (non-ST elevated myocardial infarction): (3) Atrial flutter: (4) Chest pain: (5) Atrial fibrillation: (6) Atrial fibrillation with rapid ventricular response: (7) Hx of CABG: Plan NSTEMI Type II [place] no need of angiogram for now as per cardiology A-fib RVR: Plan for cardioversion in the a.m. Electrolytes: Replenish Check magnesium and potassium in the morning Full code Cardiac diet N.p.o. after midnight Patient has been on therapeutic Lovenox he will get Eliquis at the time of discharge Low blood pressure reading, hold lisinopril and hydrochlorothiazide home regimen at the time of discharge Spoke with Dr. Cameron who has recommended cardioversion patient has eaten lunch today anesthesia recommended n.p.o. status for at least 8 hours Attestations Medical Necessity Statement*: Cardioversion tomorrow Coding Level of Care Code 99904 Diagnoses Essential hypertension I10 NSTEMI (non-ST elevated myocardial infarction) I21.4 Atrial flutter I48.92 Chest pain R07.9 Atrial fibrillation I48.91 Atrial fibrillation with rapid ventricular response I48.91 Hx of CABG Z95.1
[2022-10-12] MEDS: tamsulosin 0.4 mg Capsule PO (17:47)
[2022-10-12 18:28] LABS: Glucose Point of Care 129 mg/dL (70-110)
[2022-10-12 21:33] LABS: Glucose Point of Care 131 mg/dL (70-110)
[2022-10-12] MEDS: ipratropium-albuterol 3 mL Neb INHALATION (21:35)
[2022-10-13] VITALS: PULSE 104; RESP 17
[2022-10-13 02:21] VITALS: BP 150/92; PULSE 110; RESP 17; TEMP 37.1; O2SAT 94
[2022-10-13] MEDS: ipratropium-albuterol 3 mL Neb INHALATION (02:40)
[2022-10-13 02:42] VITALS: PULSE 109; RESP 14; O2SAT 94
[2022-10-13 04:26] LABS: Anion Gap 17.3 (5-19); Blood Urea Nitrogen 37 mg/dL (8-23); Calcium 8.8 mg/dL (8.5-10.5); Carbon Dioxide 25 mmol/L (22-29); Chloride 99 mmol/L (98-107); Glucose 151 mg/dL (65-115); Osmolality Calculated 296 mOsm/kg (285-295); Potassium 4.3 mmol/L (3.5-5.1); Sodium 137 mmol/L (136-145)
[2022-10-13 05:12] VITALS: PULSE 111
[2022-10-13 06:13] LABS: Glucose Point of Care 177 mg/dL (70-110)
[2022-10-13 08:00] VITALS: BP 139/89; PULSE 110; PULSE 80; RESP 13; RESP 17; O2SAT 94
--- NOTE | 2022-10-13 08:19 | P.PN_ITS ---
Subjective Subjective: Jonathan had an uneventful night. He remains in atrial flutter with a rate in the 110 range. No complaints. Plans for cardioversion this morning. Vitals/I&O/Wt Last Vital Signs Temp 98.7 F 10/13/22 02:21 Pulse 111 H 10/13/22 05:12 Resp 14 10/13/22 02:42 BP 150/92 10/13/22 02:21 Pulse Ox 94 10/13/22 02:42 O2 Del Method 10/13/22 02:42 O2 Flow Rate 2 10/13/22 00:00 10/12/22 10/13/22 10/13/22 22:59 06:59 14:59 Intake Total 760 / 1350 Balance 760 / 1350 Weight last 48 hrs Weight 228 lb 4.8 oz Physical Exam Narrative: GENERAL: In general he is awake and alert and in no distress HEENT: Exam within normal limits. NECK: Supple without jugular vein distention. The carotid upstroke is normal without bruits. BACK: Exam normal. LUNGS: Clear. HEART: Regular with tachycardia ABDOMEN: Benign without organomegaly or tenderness. EXTREMITIES: No edema. NEUROLOGIC: Exam normal. SKIN: Unremarkable. Data 10/12/22 03:50 10/13/22 03:10 A&P Assessment and plan (1) Essential hypertension: (2) NSTEMI (non-ST elevated myocardial infarction): (3) Atrial flutter: (4) Elevated troponin I level: (5) Chronic kidney disease: (6) Hx of CABG: Plan We will proceed with cardioversion this morning 8:00 with the assistance of anesthesiology. Attestations 2 Medical Necessity Statement*: Should be able to go home today after cardioversion. and Moderate Time for a total of 25 minutes, includes examining/interviewing patient, placing orders, discussing plan of care with staff and communicating with other healthcare providers Other Coding Information Procedural care (documented in another note) Diagnoses Essential hypertension I10 NSTEMI (non-ST elevated myocardial infarction) I21.4 Atrial flutter I48.92 Elevated troponin I level R77.8 Chronic kidney disease N18.9 Hx of CABG Z95.1
--- NOTE | 2022-10-13 08:24 | PM.PROC ---
Procedure Note: Date of procedure: 10/13/22 Pre-procedure diagnosis: Atrial flutter with rapid ventricular response Post-procedure diagnosis: same Procedure: Direct-current cardioversion Op report anesthesia: MAC Performing Provider: Rod Cameron Estimated blood loss (mL): 0 IV fluids (mL): 10 Complications: None Other Information: Anesthesiology assisted with sedation. Once the patient was adequately sedated, he was cardioverted once with 120 J using the biphasic machine. This restored sinus rhythm. There were no complications. Patient made be discharged home later. Coding Level of Care Code 0-Counter Acute 01300 Other Coding Information No focused coding review requested Procedural care (documented in this note) Time Spent (min) 30
--- NOTE | 2022-10-13 08:37 | ANES.PAUD2 ---
Pre-Anesthetic Update Pre-Anesthetic Assessment: Date of Surgery/Procedure: 10/13/22 Any changes to Pre-Anesthetic Assessment?: No Labs Last 48hrs: Short CBC 10/12/22 Range/Units 03:50 WBC 6.5 (4.0-10.0) 10^3/ uL Hgb 13.2 (11.7-16.6) g/dL Hct 39.8 L (42.0-52.0) % MCV 90.5 (80-94) fl Plt Count 152 (130-400) 10^3/c mm Neut % (Auto) 63.0 % Neut # (Auto) 4.11 (1.8-7.7) 10^3/u L BMP 10/12/22 10/13/22 03:50 03:10 Sodium 137 137 Potassium 4.2 4.3 Chloride 100 99 Carbon Dioxide 22 25 BUN 36 H 37 H Creatinine 2.0 H 2.0 H Glucose 128 H 151 H Calcium 8.5 8.8 Cardiac Enzymes 10/12/22 Range/Units 03:50 Troponin T Gen 5 n g/L 250 H* (0-15) ng/L Vitals: Temperature 98.7 F 10/13/22 02:21 Temperature Source Oral 10/13/22 02:21 Pulse Rate 80 10/13/22 08:00 Pulse Rhythm 10/12/22 20:00 Pulse Strength 3+ Normal 10/12/22 20:00 Respiratory Rate 17 10/13/22 08:00 Respiratory Effort Non-Labored 10/12/22 20:00 Respiratory Depth Normal 10/12/22 20:00 Respiratory Patter n 10/11/22 15:37 Blood Pressure 150/92 10/13/22 02:21 Blood Pressure Winnie n 111 10/13/22 02:21 Blood Pressure Pos ition Semi Fowlers 10/13/22 02:21 Pulse Oximetry 94 10/13/22 08:00 Oxygen Delivery Me thod 10/13/22 08:00 Oxygen Flow Rate 2 10/13/22 00:00 Sepsis Recent Feve r Within 48 Hours No 10/10/22 15:02 Sepsis New/Unexpla ined Change in Men eber Status No 10/10/22 15:01 Exam: Pre-Anes Outpt Exam: alert, oriented x 3, clear to auscultation bilaterally and regular rate & rhythm Cardiac Studies: Echocardiogram 07/21/22 Sestamibi Stress Test (Cardiology) 08/01/22
--- NOTE | 2022-10-13 08:38 | ANE.PACU2 ---
Inpatient post-anesthesia follow up: Airway intact: Yes Vital signs: Temperature 98.7 F Pulse Rate 80 Respiratory Rate 17 Blood Pressure 150/92 Pulse Oximetry [6 Minute 90 Exercise Test on R oom Air] Pulse Oximetry [Ro om Air at 96 Rest] Pulse Oximetry 94 Oxygen Delivery Me thod Room Air Oxygen Flow Rate 2 Fraction of Inspir ed Oxygen Hydration adequate: Yes Nausea and vomiting: No Pain level: 2 Mental status: Baseline
--- NOTE | 2022-10-13 08:42 | ECG_ITS ---
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 Measurements Intervals [place] Rate: 72 P: 93 [place]: 202 QRS: 42 QRSD: 108 T: 54 QT: 429 QTc: 472 Interpretive Statements SINUS RHYTHM WITH OCCASIONAL SUPRAVENTRICULAR PREMATURE COMPLEXES LOW QRS VOLTAGE IN PRECORDIAL LEADS [QRS DEFLECTION < 1.0 mV IN CHEST LEADS] INCOMPLETE RIGHT BUNDLE BRANCH BLOCK [90+ ms QRS DURATION, TERMINAL R IN V1/V2, 40+ ms S IN I/aVL/V4/V5/V6] POSSIBLE ANTERIOR MYOCARDIAL INFARCTION , PROBABLY OLD [30 ms Q WAVE IN V3/V4, OR R < 0.2 mV IN V4] Compared to ECG 10/10/2022 17:26:57 Incomplete right bundle-branch block now present Myocardial infarct finding now present Atrial flutter no longer present ST (T wave) deviation no longer present Electronically Signed On 10-13-2022 15:19:26 VEGETABLE SCULLION by Rod Cameron M.D. [id number]
[2022-10-13] MEDS: enoxaparin 100 mg/mL Syringe SUBCUT (09:32)
[2022-10-13] MEDS: levoFLOXacin 750 mg Tablet PO (09:33)
[2022-10-13] MEDS: docusate sodium 100 mg Capsule 200 MG PO (09:33)
[2022-10-13] MEDS: aspirin 81 mg EC Tablet PO (09:33)
[2022-10-13] MEDS: apixaban 5 mg Tablet PO (09:33)
[2022-10-13] MEDS: allopurinol 100 mg Tablet 150 MG PO (09:34)
[2022-10-13] MEDS: gabapentin 300 mg Capsule 600 MG PO (09:34)
[2022-10-13] MEDS: potassium chloride ER 20 mEq Tablet PO (09:34)
[2022-10-13] MEDS: sodium bicarbonate 650 mg Tablet PO (09:34)
[2022-10-13] MEDS: amiodarone 200 mg Tablet 400 MG PO (09:50)
[2022-10-13] MEDS: insulin glargine 100 units/1 mL 45 UNIT SUBCUT (09:50)
--- NOTE | 2022-10-13 10:02 | PM.DCS ---
Discharge Providers Date of Admission: 10/11/22 00:05 Date of Discharge: October 12, 2022 Attending Provider at Admission: Beltran Deal MD Attending Provider at Discharge: Beltran Deal MD Primary Care Provider: Luana Villegas MD Diagnoses at Discharge Discharge Diagnosis (1) Atrial flutter: Status: Acute (2) Chest pain: Status: Acute (3) NSTEMI (non-ST elevated myocardial infarction): Status: Acute (4) Hx of CABG: Status: Acute Reason for Visit Reason for Visit: chest pain Hospital Course Hospital Course 72-year-old male who presented to hospital with palpitations, A-fib RVR, cardiology was consulted, he was treated for NSTEMI with therapeutic Lovenox, his kidney function remained at baseline around 2, he remained chest pain-free, he never experienced any symptoms throughout hospitalization, Dr. Gallo deemed his troponin leak related to A-fib RVR demand ischemia type II [place], patient carries history of CABG x2, last year stress test did not show significant ischemic changes. Patient's blood pressure has remained on the lower side and required IV fluid hydration. No signs of sepsis or shock. He is fluid responsive. For his A-fib RVR he was transitioned from amiodarone drip to p.o. regimen 400 mg twice a day as per Dr Gallo, he remained in A-fib RVR, Dr. Cameron recommended cardioversion over the weekend, patient was successfully cardioverted to normal sinus rhythm For his chronic kidney disease I will give him referral to see Dr. Ambrocio outpatient. Because of low blood pressure I have discontinued his lisinopril/hydrochlorothiazide combination and metoprolol succinate. Physical Exam Narrative: Awake and alert NSR Eating breakfast Pleasant cooperative GCS 15 No signs of congestive heart failure clinically Pleasant and cooperative Discharge Data Studies Completed and Pending Completed Studies During Hospitalization Category Date Time Status XR chest 1V portable [id number] Urgent Exams 10/10/22 15:02 Completed Pending at discharge Category Date Time Status Magnesium AM LABS Lab 10/13/22 04:00 Ordered Magnesium AM LABS Lab 10/14/22 04:00 Ordered Sputum Culture and Gram Stain Routine Lab 10/10/22 21:04 Uncollected Radiology Impressions Chest X-Ray 10/10/22 15:02 IMPRESSION: Limited chest exam with chronic scarring/pleural thickening left hemithorax and mild subsegmental atelectasis right lung base. Laboratory Results WBC 6.5 10^3/uL (4.0-10.0) 10/12/22 03:50 RBC 4.40 10^6/uL (4.1-5.3) 10/12/22 03:50 Hgb 13.2 g/dL (11.7-16.6) 10/12/22 03:50 Hct 39.8 % (42.0-52.0) L 10/12/22 03:50 MCV 90.5 fl (80-94) 10/12/22 03:50 MCH 30.0 pg (28.0-34.0) 10/12/22 03:50 MCHC 33.2 g/dL (30.0-36.0) 10/12/22 03:50 RDW 13.4 % (12.1-15.1) 10/12/22 03:50 Plt Count 152 10^3/cmm (130-400) 10/12/22 03:50 MPV 10.5 fL (7.4-10.4) H 10/12/22 03:50 Neut % (Auto) 63.0 % 10/12/22 03:50 Lymph % (Auto) 21.1 % 10/12/22 03:50 [place] % (Auto) 11.9 % 10/12/22 03:50 Eos % (Auto) 2.6 % 10/12/22 03:50 Baso % (Auto) 0.8 % 10/12/22 03:50 Neut # (Auto) 4.11 10^3/uL (1.8-7.7) 10/12/22 03:50 Lymph # (Auto) 1.4 10^3/uL (0.8-4.8) 10/12/22 03:50 [place] # (Auto) 0.8 10^3/uL (0.2-0.9) 10/12/22 03:50 Eos # (Auto) 0.2 10^3/uL (0.0-0.8) 10/12/22 03:50 Baso # (Auto) 0.1 10^3/uL (0.0-0.1) 10/12/22 03:50 Nucleated RBC % (auto) 0 % 10/12/22 03:50 Nucleated RBCs # 0.0 /100WBC 10/12/22 03:50 D-Dimer 0.41 ug/mIFEU (0-0.59) 10/10/22 14:50 Sodium 137 mmol/L (136-145) 10/12/22 03:50 Potassium 4.2 mmol/L (3.5-5.1) 10/12/22 03:50 Chloride 100 mmol/L (98-107) 10/12/22 03:50 Carbon Dioxide 22 mmol/L (22-29) 10/12/22 03:50 Anion Gap 19.2 (5-19) H 10/12/22 03:50 BUN 36 mg/dL (8-23) H 10/12/22 03:50 Creatinine 2.0 mg/dL (0.7-1.2) H 10/12/22 03:50 GFR Calculation Not Reportable 10/12/22 03:50 Glucose 128 mg/dL (65-115) H 10/12/22 03:50 POC Glucose 115 mg/dL (70-110) H 10/12/22 06:01 Calculated Osmolality 294 mOsm/kg (285-295) 10/12/22 03:50 Calcium 8.5 mg/dL (8.5-10.5) 10/12/22 03:50 Phosphorus 3.3 mg/dL (2.5-4.5) 10/11/22 04:30 Magnesium 2.0 mg/dL (1.7-2.3) 10/12/22 03:50 Total Bilirubin 0.8 mg/dL (0.15-1.2) 10/10/22 15:40 AST 20 U/L (0-40) 10/10/22 15:40 ALT 22 U/L (0-41) 10/10/22 15:40 Alkaline Phosphatase 120 U/L (40-130) 10/10/22 15:40 Troponin T Gen 5 ng/L 250 ng/L (0-15) H* 10/12/22 03:50 Troponin T Baseline 104 ng/L (0-15) H* 10/10/22 15:40 Troponin T 120 Minute 223.9 ng/L (0-15) H 10/10/22 17:40 Delta Troponin T 119.9 ABS# (0-10) H* 10/10/22 17:40 Troponin T Hi Sens 6Hr 379.8 ng/L (0-15) H 10/10/22 21:40 Troponin T Hi Sens 6Hr Delta 275.8 ng/L (0-12) H* 10/10/22 21:40 C-Reactive Protein 9.2 mg/L (0.0-4.9) H 10/11/22 04:30 Total Protein 7.3 g/dL (6.6-8.7) 10/10/22 15:40 Albumin 4.1 g/dL (3.5-5.2) 10/10/22 15:40 Globulin 3.2 g/dL (1.3-4.6) 10/10/22 15:40 TSH 0.41 uIU/mL (0.27-4.20) 10/10/22 15:40 Vitals Last Vital Signs Temp 97.9 F 10/12/22 08:23 Pulse 106 H 10/12/22 08:23 Resp 21 H 10/12/22 08:23 BP 100/70 10/12/22 08:23 Pulse Ox 96 10/12/22 08:23 O2 Del Method 10/12/22 08:23 O2 Flow Rate 2 10/12/22 08:23 Discharge Plan Discharge Patient Disposition: Home Condition: Stable Prescriptions: New amiodarone [Pacerone] 200 mg Tablet 400 mg PO 0900,2100 Qty: 60 4RF Rx Instructions: 400 mg twice a day for 7 days, 200 mg twice a day for 7 days, 200 mg onwards levofloxacin 750 mg Tablet 750 mg PO Q48H Qty: 3 0RF Continued aspirin [Adult Low Dose Aspirin] 81 mg tablet,delayed release (DR/EC) 81 mg PO DAILY ezetimibe 10 mg tablet 10 mg PO DAILY glipizide 10 mg tablet 10 mg PO QPM Glucerna Shake Liquid 1 ea PO BID fluticasone propion-salmeterol [Advair Diskus] 500-50 mcg/dose blister with device 1 inh inhalation BID Qty: 60 0RF albuterol sulfate 2.5 mg /3 mL (0.083 %) solution for nebulization 2.5 mg inhalation Q8H PRN (Reason: shortness of breath or wheezing) Qty: 75 0RF gabapentin 600 mg Tablet 600 mg PO BID insulin glargine 100 unit/mL Solution 45 unit SUBCUT BID cromolyn 5.2 mg/spray (4 %) [place],Non-Aerosol 1 spray INTRANASAL DAILY PRN (Reason: Nasal Congestion) omega-3 fatty acids 1,000 mg Capsule 1,000 mg PO BID cetirizine [Zyrtec] 10 mg Tablet 10 mg PO DAILY allopurinol 100 mg Tablet 150 mg PO DAILY tamsulosin [Flomax] 0.4 mg Capsule 0.4 mg PO QPM sodium bicarbonate 650 mg Tablet 650 mg PO BID docusate sodium [Colace] 100 mg Capsule 200 mg PO BID Rx Instructions: hold for loose stool paroxetine HCl [Paxil] 40 mg Tablet 40 mg PO DAILY rosuvastatin 40 mg Tablet 20 mg PO DAILY cholecalciferol (vitamin D3) [Vitamin D3] 25 mcg (1,000 unit) Tablet 75 mcg PO DAILY calcitriol 0.25 mcg Capsule 0.25 mcg PO .MWF coenzyme Q10 100 mg Capsule 100 mg PO DAILY Changed Eliquis 5 mg Tablet 2.5 mg PO BID Qty: 60 0RF Discontinued metoprolol succinate 50 mg Tablet Extended Release 24 Hr 25 mg PO DAILY lisinopril-hydrochlorothiazide 10-12.5 mg Tablet 2 tab PO QAM Hold Instructions: Resume on 08/11/22. hold until seen by PCP Discharge Orders: Discharge Order (Routine); Ordered 10/13/22 Ordered By: Beltran Deal Referrals: Santi Ambrocio MD [Referring] - 1 week (Dr. Ambrocio's Office will be calling you to schedule your follow up appointment. They are getting you worked into the schedule. Please call [phone] for any questions or concerns. Thank you. Chronic kidney disease) Luana Villegas MD [Primary Care Provider] - 7-10 days (Dr. Villegas's Office will be calling you to schedule a follow up appointment. They are going to work you into the schedule. Please call [phone] or for questions or concerns. Thank you.) Discharge Diet: Cardiac Discharge Activity: Limit activity as instructed Patient Instructions: Amiodarone (By mouth) (Cordarone, Pacerone), Levofloxacin (By mouth) (Levaquin, Levaquin Leva-estuardo), Opioid Safety Discharge Attestations Time Spent in Discharge Care*: less than 30 min Quality Metrics Clinical Quality Measures [ No reported AMI, CVA or VTE this stay] Coding Level of Care Code Acute Code for Chg Fwd Diagnoses Atrial flutter I48.92 Chest pain R07.9 NSTEMI (non-ST elevated myocardial infarction) I21.4 Hx of CABG Z95.1
--- NOTE | 2022-10-13 10:57 | PC.NURSE ---
Pt received cardioversion at 0805 this am. Shocked with 120 joules and coverted to sinus rhythm. Pt tolerated well. Will monitor.
[2022-10-13 11:14] VITALS: BP 131/74; PULSE 74; RESP 85; O2SAT 96
--- NOTE | 2022-10-13 11:55 | PC.NURSE ---
Pt discharged home with daughter. Belongings in hand. Discharge instructions given with a verbal understanding. IVs removed with cathlons intact. Taken to vehicle per w/c.
[2022-10-14 09:12] LABS: Glucose Point of Care 140 mg/dL (70-110)
== END 2022-10-13 11:55 | disposition home or self-care (01) ==
LOC: ER 17:39 → ER IP 23:51 → CSU 10-11 12:36
PROVIDERS: Physician Assistant; Admitting Provider Internal Medicine; Emergency Provider Family Medicine; PCP Family Medicine; Visit Provider Internal Medicine
DX: I48.92 Unspecified atrial flutter (principal); R07.9 Chest pain, unspecified; I21.4 Non-ST elevation (NSTEMI) myocardial infarction; Z95.1 Presence of aortocoronary bypass graft; R77.8 Other specified abnormalities of plasma proteins; N18.9 Chronic kidney disease, unspecified; Z99.81 Dependence on supplemental oxygen; I25.10 Atherosclerotic heart disease of native coronary artery without angina pectoris; Z86.718 Personal history of other venous thrombosis and embolism; E78.5 Hyperlipidemia, unspecified; E66.01 Morbid (severe) obesity due to excess calories; Z68.33 Body mass index [BMI] 33.0-33.9, adult; Z79.4 Long term (current) use of insulin; Z87.891 Personal history of nicotine dependence; E11.42 Type 2 diabetes mellitus with diabetic polyneuropathy; E11.22 Type 2 diabetes mellitus with diabetic chronic kidney disease; I12.9 Hypertensive chronic kidney disease with stage 1 through stage 4 chronic kidney disease, or unspecified chronic kidney disease; N18.30 Chronic kidney disease, stage 3 unspecified
CPT/HCPCS: 36415; 36416; 71045; 80048; 80053; 82962; 83735; 84100; 84443; 84484; 85025; 85378; 86140; 93005; 94640; 94760; 96365; 96367; 96372; 96374; 96375; 96376; 99291; G0378; J0153; J0282; J1650; J1815; J2370; J2704; J3475; J3490; J7040; J7060; J7120

== ENCOUNTER → 2022-10-17 09:17 | Outpatient (BNVA) | payer OTHER, SELFPAY | PROVIDERS: PCP Family Medicine; Visit Provider Nurse Practitioner Family | DX: I48.91 Unspecified atrial fibrillation (principal) | CPT/HCPCS: 93005; 99214 ==

== ENCOUNTER → 2022-10-24 09:28 | Outpatient (BNVA) | payer OTHER, SELFPAY | PROVIDERS: PCP Family Medicine; Visit Provider Internal Medicine Pulmonary Disease | DX: R06.09 Other forms of dyspnea (principal); Z87.891 Personal history of nicotine dependence; I25.10 Atherosclerotic heart disease of native coronary artery without angina pectoris; Z95.1 Presence of aortocoronary bypass graft; I48.91 Unspecified atrial fibrillation; Z79.01 Long term (current) use of anticoagulants | CPT/HCPCS: 99204 ==

== ENCOUNTER 2022-10-29 19:26 | Emergency (ER) | payer OTHER, SELFPAY ==
[2022-10-29 19:36] VITALS: BP 207/81; PULSE 90; RESP 17; TEMP 36.7; O2SAT 93; BMI 34.0
--- NOTE | 2022-10-29 19:48 | ECG_ITS ---
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 Measurements Intervals [place] Rate: 81 P: 94 [place]: 206 QRS: 78 QRSD: 92 T: 52 QT: 400 QTc: 464 Interpretive Statements SINUS RHYTHM WITH OCCASIONAL SUPRAVENTRICULAR PREMATURE COMPLEXES Compared to ECG 10/13/2022 08:42:08 Incomplete right bundle-branch block no longer present Myocardial infarct finding no longer present Electronically Signed On 10-29-2022 23:42:11 BOW STRING [employer]KER by Royer Dennison M.D. [id number]
--- NOTE | 2022-10-29 19:55 | XRR_ITS ---
PROCEDURE INFORMATION: Exam: XR Chest Exam date and time: 10/29/2022 8:05 PM Age: 72 years old Clinical indication: Other: High BP 207/87; Prior surgery; Surgery date: 6+ months; Surgery type: Open heart 04/2022; Additional info: SOB TECHNIQUE: Imaging protocol: Radiologic exam of the chest. Views: 1 view. COMPARISON: CR XR chest 1V portable [id number] 10/10/2022 3:31 PM FINDINGS: Lungs: Linear scarring again noted along the left mid and lower lung. No consolidation. Pleural spaces: Redemonstrated chronic pleural thickening along the periphery of the left lung. No pleural effusion. No pneumothorax. Heart/Mediastinum: No cardiomegaly. Bones/joints: Sternotomy wires noted. Visualized osseous structures are intact. XR/XR chest 1V portable [id number] IMPRESSION: No acute findings.
[2022-10-29 20:11] VITALS: BP 187/91; PULSE 78; RESP 18; O2SAT 92
[2022-10-29 20:13] LABS: Basophils # 0.1 10^3/uL (0.0-0.1); Basophils % 0.8 %; Eosinophils # 0.3 10^3/uL (0.0-0.8); Eosinophils % 3.7 %; Hematocrit 43.4 % (42.0-52.0); Hemoglobin 13.9 g/dL (11.7-16.6); Lymphocytes # 1.7 10^3/uL (0.8-4.8); Lymphocytes % 21.5 %; Mean Corpuscular Hemoglobin 29.1 pg (28.0-34.0); Mean Platelet Volume 9.8 fL (7.4-10.4); Monocytes # 0.7 10^3/uL (0.2-0.9); Monocytes % 8.8 %; Neutrophils # 5.01 10^3/uL (1.8-7.7); Neutrophils % 64.4 %; Nucleated Red Blood Cells % 0 %; Platelet Count 171 10^3/cmm (130-400); Red Blood Count 4.77 10^6/uL (4.1-5.3); Red Cell Distribution Width 13.4 % (12.1-15.1); White Blood Count 7.8 10^3/uL (4.0-10.0)
--- NOTE | 2022-10-29 20:14 | W.ED.ARRPALP ---
HPI - Arrhythmia/Palpitations General: Chief Complaint: Arrhythmia/Palpitations Stated Complaint: Blood Pressure High Time Seen by Provider: 10/29/22 19:55 History of Present Illness: 72-year-old male in with concerns of elevated blood pressure. Patient's been on lisinopril hydrochlorothiazide for quite some time and recently found to have atrial fibrillation with a rapid ventricular response and started on amiodarone he is just began to start to have this tapered down. The patient had a mild headache tonight and over those concerns checked his blood pressure was greater than 200 he did not have any other symptoms such as chest pain or shortness of breath. Denies any flank pain or gross hematuria or any other complaints but over the concerns of elevated blood pressure presented to the emergency department for evaluation. He has been compliant with his medications. Review of Systems General: Reports: 10 or more systems reviewed and unremarkable except in HPI and below PFSH ED PFSH: Medical History Atherosclerosis Atrial fibrillation Atrial fibrillation with rapid ventricular response Atrial flutter Chest pain Chronic atrial fibrillation Chronic kidney disease Creatinine elevation Depressive disorder Elevated troponin I level Essential hypertension Gout Hyperlipidemia NSTEMI (non-ST elevated myocardial infarction) Peripheral neuropathy Troponin level elevated Surgical History H/O knee surgery History of cholecystectomy Hx of CABG Family History Other Family history of premature coronary artery disease Stroke Social History Smoking and tobacco status: former smoker Quit status (tobacco): has quit using tobacco Year quit tobacco: 1971 Former quit date comment: 1ppd x 20 years Physical Exam Const: COMMON NORMALS: no acute distress, patient oriented x3, alert and well nourished HENMT: COMMON NORMALS: normocephalic HEAD & SCALP: normocephalic Chest: COMMONS NORMALS: normal inspection of the chest and normal palpation of entire chest wall Resp: COMMON NORMALS: normal respiratory effort, No retractions, No use of accessory muscles, clear to auscultation bilaterally and percussion normal AUSCULTATION: clear to auscultation bilaterally PERCUSSION: percussion normal Cardio: OTHER: Regular rate and rhythm GI: COMMON NORMALS: Normal to inspection, nondistended, normoactive bowel sounds present, Soft to palpation, non-tender, No hepatosplenomegaly present, no masses and no bruits PALPATION: Yes Soft to palpation and Yes No hepatosplenomegaly present : COMMON NORMALS: Yes no CVA tenderness BLADDER/KIDNEY EXAM: Yes no CVA tenderness Back/Pelvis: COMMON NORMALS: no CVA tenderness Extremity: COMMON NORMALS: normal to inspection, full ROM, capillary refill normal, no joint enlargement, no clubbing, cyanosis or edema, no calf tenderness and no pedal edema Neuro: COMMON NORMALS: patient oriented x3 SENSORIUM/ORIENTATION: Yes alert Skin: COMMON NORMALS: no rashes or lesions noted, turgor normal and no jaundice GENERAL SKIN EXAM: no rashes or lesions noted and turgor normal Course Vital Signs: Vital signs: Vital Signs Temperature 98.1 F 10/29/22 19:36 Pulse Rate 82 10/29/22 22:01 Respiratory Rate 18 10/29/22 22:01 Blood Pressure 171/92 10/29/22 22:01 Pulse Oximetry 93 10/29/22 22:01 Oxygen Delivery Me thod 10/29/22 19:36 MDM - Arrhythmia/Palpitations Medical Decision Making 72-year-old in with concerns of asymptomatic hypertension. He did have a headache earlier but now that is resolved. I will observe him over time were not getting intervene with his pressure that is already coming down right now. If he redevelops symptoms we may consider imaging or further work-up but we will check some routine labs and then I will make further recommendations based on his vital signs as well as complaints and physical examination and objective studies. Patient remained asymptomatic his blood pressure fell to systolic in the 160s. His labs were for the most part unremarkable. I gave him an option of starting on something or calling his doctor in the morning and he chose the latter. I reviewed with contemporaneous management of asymptomatic hypertension in the emergency department and our rationale for his evaluation and course here and he verbalized understanding and will follow-up with primary care tomorrow. Lab Data 10/29/22 20:03 10/29/22 20:03 Radiology Impressions Chest X-Ray 10/29/22 19:55 IMPRESSION: No acute findings. Laboratory Results WBC 7.8 10^3/uL (4.0-10.0) 10/29/22 20:03 RBC 4.77 10^6/uL (4.1-5.3) 10/29/22 20:03 Hgb 13.9 g/dL (11.7-16.6) 10/29/22 20:03 Hct 43.4 % (42.0-52.0) 10/29/22 20:03 MCV 91.0 fl (80-94) 10/29/22 20:03 MCH 29.1 pg (28.0-34.0) 10/29/22 20:03 MCHC 32.0 g/dL (30.0-36.0) 10/29/22 20:03 RDW 13.4 % (12.1-15.1) 10/29/22 20:03 Plt Count 171 10^3/cmm (130-400) 10/29/22 20:03 MPV 9.8 fL (7.4-10.4) 10/29/22 20:03 Neut % (Auto) 64.4 % 10/29/22 20:03 Lymph % (Auto) 21.5 % 10/29/22 20:03 Shelby % (Auto) 8.8 % 10/29/22 20:03 Eos % (Auto) 3.7 % 10/29/22 20:03 Baso % (Auto) 0.8 % 10/29/22 20:03 Neut # (Auto) 5.01 10^3/uL (1.8-7.7) 10/29/22 20:03 Lymph # (Auto) 1.7 10^3/uL (0.8-4.8) 10/29/22 20:03 Shelby # (Auto) 0.7 10^3/uL (0.2-0.9) 10/29/22 20:03 Eos # (Auto) 0.3 10^3/uL (0.0-0.8) 10/29/22 20:03 Baso # (Auto) 0.1 10^3/uL (0.0-0.1) 10/29/22 20:03 Nucleated RBC % (auto) 0 % 10/29/22 20:03 Nucleated RBCs # 0.0 /100WBC 10/29/22 20:03 Sodium 137 mmol/L (136-145) 10/29/22 20:03 Potassium 4.4 mmol/L (3.5-5.1) 10/29/22 20:03 Chloride 99 mmol/L (98-107) 10/29/22 20:03 Carbon Dioxide 26 mmol/L (22-29) 10/29/22 20:03 Anion Gap 16.4 (5-19) 10/29/22 20:03 BUN 21 mg/dL (8-23) 10/29/22 20:03 Creatinine 1.4 mg/dL (0.7-1.2) H 10/29/22 20:03 GFR Calculation Not Reportable 10/29/22 20:03 Glucose 144 mg/dL (65-115) H 10/29/22 20:03 Calculated Osmolality 290 mOsm/kg (285-295) 10/29/22 20:03 Calcium 9.0 mg/dL (8.5-10.5) 10/29/22 20:03 Magnesium 1.4 mg/dL (1.7-2.3) L 10/29/22 20:03 Total Bilirubin 0.5 mg/dL (0.15-1.2) 10/29/22 20:03 AST 21 U/L (0-40) 10/29/22 20:03 ALT 18 U/L (0-41) 10/29/22 20:03 Alkaline Phosphatase 105 U/L (40-130) 10/29/22 20:03 Troponin T Baseline 63 ng/L (0-15) H 10/29/22 20:03 NT-Pro-B Natriuret Pep 390 pg/mL (0-125) H 10/29/22 20:03 Total Protein 7.3 g/dL (6.6-8.7) 10/29/22 20:03 Albumin 4.3 g/dL (3.5-5.2) 10/29/22 20:03 Globulin 3.0 g/dL (1.3-4.6) 10/29/22 20:03 Discharge Plan Discharge Patient Disposition: Home Clinical Impression: Uncontrolled hypertension Condition: Stable Prescriptions: No Action aspirin [Adult Low Dose Aspirin] 81 mg tablet,delayed release (DR/EC) 81 mg PO DAILY ezetimibe 10 mg tablet 10 mg PO DAILY Pacerone 200 mg tablet 400 mg PO 0900,2100 Qty: 60 4RF Rx Instructions: 400 mg twice a day for 7 days, 200 mg twice a day for 7 days, 200 mg onwards glipizide 10 mg tablet 10 mg PO QPM albuterol sulfate 2.5 mg /3 mL (0.083 %) solution for nebulization 2.5 mg inhalation Q8H PRN (Reason: shortness of breath or wheezing) Qty: 75 0RF gabapentin 600 mg Tablet 600 mg PO BID insulin glargine 100 unit/mL Solution 45 unit SUBCUT BID cromolyn 5.2 mg/spray (4 %) [place],Non-Aerosol 1 spray INTRANASAL DAILY PRN (Reason: Nasal Congestion) omega-3 fatty acids 1,000 mg Capsule 1,000 mg PO BID cetirizine [Zyrtec] 10 mg Tablet 10 mg PO DAILY allopurinol 100 mg Tablet 150 mg PO DAILY tamsulosin [Flomax] 0.4 mg Capsule 0.4 mg PO QPM sodium bicarbonate 650 mg Tablet 650 mg PO BID docusate sodium [Colace] 100 mg Capsule 200 mg PO BID Rx Instructions: hold for loose stool paroxetine HCl [Paxil] 40 mg Tablet 40 mg PO DAILY rosuvastatin 40 mg Tablet 20 mg PO DAILY cholecalciferol (vitamin D3) [Vitamin D3] 25 mcg (1,000 unit) Tablet 75 mcg PO DAILY calcitriol 0.25 mcg Capsule 0.25 mcg PO .MWF coenzyme Q10 100 mg Capsule 100 mg PO DAILY Eliquis 5 mg Tablet 2.5 mg PO BID Qty: 60 0RF Discharge Orders: Discharge ED (Routine); Ordered 10/29/22 Ordered By: Juan Alamo Referrals: Luana Villegas MD [Primary Care Provider] - Discharge Diet: Low Salt Discharge Activity: Limit activity as instructed Patient Instructions: Opioid Safety, Pain Management Activity Restrictions/Additional Instructions: 1. Call PCP in AM to discuss additional blood pressure medication. Coding Level of Care Code ED Global Engineering Manager for Zechariah Kaur
[2022-10-29 20:31] VITALS: BP 174/82; PULSE 79; RESP 18; O2SAT 93
[2022-10-29 20:42] LABS: Alanine Aminotransferase 18 U/L (0-41); Albumin Level 4.3 g/dL (3.5-5.2); Alkaline Phosphatase 105 U/L (40-130); Aspartate Amino Transferase 21 U/L (0-40); Blood Urea Nitrogen 21 mg/dL (8-23); Carbon Dioxide 26 mmol/L (22-29); Chloride 99 mmol/L (98-107); Glucose 144 mg/dL (65-115); Magnesium 1.4 mg/dL (1.7-2.3); NT Pro B Type Natriuretic Pept 390 pg/mL (0-125); Osmolality Calculated 290 mOsm/kg (285-295); Sodium 137 mmol/L (136-145); Total Bilirubin 0.5 mg/dL (0.15-1.2); Total Protein 7.3 g/dL (6.6-8.7)
[2022-10-29 20:58] LABS: Troponin(5th) Baseline 63 ng/L (0-15)
[2022-10-29 21:00] VITALS: BP 169/77; PULSE 78; RESP 18; O2SAT 92
[2022-10-29 21:02] LABS: Anion Gap 16.4 (5-19); Potassium 4.4 mmol/L (3.5-5.1)
[2022-10-29 21:30] VITALS: BP 172/83; PULSE 79; RESP 18; O2SAT 93
[2022-10-29 22:01] VITALS: BP 171/92; PULSE 82; RESP 18; O2SAT 93
== END 2022-10-29 22:13 | disposition home or self-care (01) ==
PROVIDERS: Emergency Provider Family Medicine; PCP Family Medicine
DX: I10 Essential (primary) hypertension (principal); I48.91 Unspecified atrial fibrillation; I25.2 Old myocardial infarction; Z79.82 Long term (current) use of aspirin; Z79.01 Long term (current) use of anticoagulants
CPT/HCPCS: 71045; 80053; 83735; 83880; 84484; 85025; 93005; 99285

== ENCOUNTER 2022-10-31 10:16 | Outpatient (CLI) | payer OTHER, SELFPAY ==
--- NOTE | 2022-10-31 11:00 | CT_ITS ---
WS: [id number] CT CHEST WITHOUT INTRAVENOUS CONTRAST HISTORY: check for resolution of pneumonia TECHNIQUE: Contiguous 5 mm axial imaging performed on the thorax. Coronal and sagittal reformats are submitted. All CT scans at [facility] use at least one of these dose optimization techniques: automated exposure control; mA and/or kV adjustment per patient size (includes targeted exams where dose is matched to clinical indication); or iterative reconstruction. CONTRAST: None DLP: 607.21 mGy.cm COMPARISON: 07/29/2022, 05/15/2019 Lungs and central airway: Moderate improvement in aeration bilaterally throughout each lung. Improvin g groundglass opacifications. LEFT pleural thickening has also slightly improved. There is continued pleural based nodularity near the lingula which may be rounded atelectasis. There is additional linea r atelectasis which is not rounded in the LEFT lower lung field and at the lingula. Partial atelectas is RIGHT lung base. Spiculated RIGHT middle lobe nodule is reidentified measuring 13 x 11 mm. Nodule appears slightly more consolidated than on the prior study. Compared to the 05/15/2019 study this nodu le has increased in size and is suspicious for neoplasm. Pleura: Pleural thickening predominantly throughout the LEFT thorax with mild improvement. Heart and pericardium: Mild cardiomegaly. There is extensive coronary artery calcifications. Patient is status post CABG. Mediastinum and isaiah: No adenopathy identified. Vessels: Moderate calcification in aorta. No aneurysm. Chest wall and lower neck: Large substernal thyroid. Patient has a known goiter which extends subster nal. Greatest component involving the RIGHT thyroid lobe with mass effect upon the trachea. There are a few scattered calcifications within each lobe. Upper abdomen: Small hiatal hernia. No adrenal mass. IVC filter is partially visualized. Prior cholec ystectomy. Osseous structures: Mild spondylitic changes throughout the thoracic spine. CT/CT chest wo con [id number] IMPRESSION: 1. RIGHT middle lobe nodule measures 13 x 11 mm. By measurement this nodule garcia s not significantly increased in size. Visually the nodule appears more consoli dated. Remains suspicious for neoplasm. 2. Significant improvement in the bilateral groundglass attenuation and also t he mild pleural thickening and atelectasis in the LEFT lung. 3. Persistent areas of atelectasis throughout the LEFT lung. There is a nodula r soft tissue component in the lingula. I suspect this could be rounded atelect asis. Recommend continued CT follow-up to ensure stability. 4. Multinodular goiter. This has been previously described and ultrasound was performed on 06/11/2019. 5. Prior CABG. 6. Prior cholecystectomy.
== END 2022-10-31 10:17 | disposition home or self-care (01) ==
LOC: RAD 10:22
PROVIDERS: PCP Family Medicine; Visit Provider Internal Medicine Pulmonary Disease
DX: J18.9 Pneumonia, unspecified organism (principal); R91.8 Other nonspecific abnormal finding of lung field; E04.2 Nontoxic multinodular goiter
CPT/HCPCS: 71250

== ENCOUNTER 2022-11-10 05:46 | Outpatient (CLI) | payer OTHER, SELFPAY ==
--- NOTE | 2022-11-10 07:30 | PETR_ITS ---
PROCEDURE INFORMATION: Exam: PET/CT Skull Base to Mid-thigh Exam date and time: 11/10/2022 8:26 AM Age: 72 years old Clinical indication: Abnormal findings; Prior surgery; Surgery type: Heart; Additional info: Suspicious 13 x 11 mm right middle lobe, 10/31/22 CT chest: LABS AND CLINICAL REPORTS: Glucose: 142 mg/dl Treatment strategy for malignancy (PET staging): Initial Staging (PI) TECHNIQUE: Imaging protocol: Following at least four-hour fasting and following the injection of F-18-FDG, low dose CT images were obtained. Then, PET images were obtained. Attenuation corrected images were constructed using the CT scan. Fused images of PET and CT were reviewed. The standardized uptake values (SUV) reported below are maximum values within a region of interest, expressed in gm/ml. Exam includes orbital meatal line to mid-thigh. Radiopharmaceutical: 11.25 mCi F-18 FDG (Fluorodeoxyglucose), IV. Time of imaging post radiopharmaceutical administration: 1 hour Injection site: Right antecubital COMPARISON: CT chest 10/31/2022, PT PET Scan 05/09/2019 7:53 AM FINDINGS: Brain: Visualized brain has normal physiologic uptake. Paranasal sinuses: Moderate non radiotracer avid mucosal thickening of the left maxillary sinus is noted consistent with benign chronic sinus disease. Pharynx: No abnormal uptake. Larynx: No abnormal uptake. Thyroid: There is similar marked enlargement of the right thyroid lobe with substernal extension and mild associated leftward tracheal deviation, measuring 4.6 x 5.0 cm in the axial plane on series 3, image 38 without elevated uptake. Lungs, pleura and trachea: Non radiotracer avid similar mild pleural thickening throughout the left hemithorax is present. An anterior right middle lobe nodule on the minor fissure is not radiotracer avid measuring 1.6 x 1.2 cm on series 3, image 57, SUV max 1.3 is increased in size since the prior PET-CT. Non radiotracer avid ovoid nodularity in the lingula is noted similar to the CT from 10/31/2022 measuring 2.0 x 1.9 cm on series 3, image 59, SUV max 1.8. Linear areas of streaky density throughout the left upper lobe and both lower lobes are not radiotracer avid suggestive of scarring or atelectasis. Heart: Normal physiologic uptake. Mediastinal space: No abnormal uptake. Liver: No abnormal uptake. Gallbladder and bile ducts: No abnormal uptake. Cholecystectomy clips are present. Pancreas: No abnormal uptake. Spleen: No abnormal uptake. Adrenal glands: No abnormal uptake. Kidneys and ureters: Normal physiologic uptake. A rounded fluid density structure in the lateral mid left kidney measures 1.3 cm in diameter on series 3, image 91 without elevated uptake. Unremarkable right kidney. Stomach and bowel: There are scattered colonic diverticula. Vasculature: No abnormal uptake. There are diffuse atherosclerotic changes. An inferior vena cava filter is noted. Lymph nodes: A portacaval lymph node measures 2.6 x 0.9 cm on series 3, image 85, SUV max 3.1. It is similar in size compared with the prior PET-CT where it was not radiotracer avid. Bones/joints: Sternotomy wires are noted. Degenerative spondylosis throughout the spine is noted. Soft tissues: An uncomplicated appearing fat containing umbilical hernia is noted. Mild subcutaneous nodularity along the anterior aspect of the lower abdominal and pelvic wall is noted without elevated uptake, greatest on the right measuring 1.7 cm in diameter on series 3, image 118, SUV max 1.2. METRICS: Mediastinal blood pool: SUV max 3.7 Liver uptake: SUV max 4.1 PET/PET [facility] INITIAL [id number] IMPRESSION: 1. A right middle lobe nodule is increased in size since the prior PET-CT however it continues to be non radiotracer avid (SUV max 1.3). Additionally, an ovoid region of nodularity in the lingula is not significantly radiotracer avid (SUV max 1.8). Lack of uptake favors a benign etiology. The possibility of non radiotracer avid neoplastic involvement in these regions cannot be entirely excluded. 2. A mildly prominent portacaval lymph node is similar in size compared with the prior PET-CT with new low-level uptake (SUV max 3.1) which is below background activity. This appearance is likely benign in nature related to infectious or inflammatory changes. A neoplastic etiology is not favored. 3. Non radiotracer avid similar prominence of the right thyroid lobe. 4. Subcutaneous nodularity along the anterior aspect of the lower abdominopelvic wall is noted without elevated uptake possibly related to previous injection granulomas. 5. Simple appearing left renal cyst. 6. Additional nonurgent findings as detailed above.
== END 2022-11-10 05:47 | disposition home or self-care (01) ==
LOC: RAD 11-12 05:46
PROVIDERS: PCP Family Medicine; Visit Provider Internal Medicine Pulmonary Disease
DX: R91.1 Solitary pulmonary nodule (principal); N28.1 Cyst of kidney, acquired
CPT/HCPCS: 78815; A9552

== ENCOUNTER 2022-11-13 08:08 | Outpatient (CLI) | payer OTHER, SELFPAY ==
--- NOTE | 2022-11-13 08:26 | US_ITS ---
WS: [id number] THYROID ULTRASOUND HISTORY: ENLARGED THYROID COMPARISON: Prior ultrasound 06/11/2019. PET CT 11/10/2022 Right lobe: 3.8 cm x 3.6 cm x 5.1 cm (w x ap x l). Volume: 36.7 cm3. Enlarged heterogeneous thyroid with minimal increased vascularity. There is no discrete nodule the en tire gland is enlarged and heterogeneous with a few calcifications causing shadowing. Similar to the prior studies. Left lobe: 2.1 cm x 2.4 cm x 4.8 cm (w x ap x l). Volume: 12.7 cm3. Very mildly enlarged thyroid. Stable nearly isoechoic nodule in the mid gland measures 1.5 x 1.6 x 2. 2 cm. No increased vascularity. Isthmus: 0.8 cm. US/US thyroid [id number] IMPRESSION: 1. Enlarged nodular thyroid gland. Most significant enlargement throughout the RIGHT thyroid. Very similar ultrasound appearance as compared to 06/11/2019 of the enlarged thyroid. Also, recent PET/CT was negative involving the thyroid. 2. Most likely multinodular goiter.
== END 2022-11-13 08:09 | disposition home or self-care (01) ==
LOC: RAD 08:21
PROVIDERS: PCP Family Medicine; Visit Provider Family Medicine
DX: E04.9 Nontoxic goiter, unspecified (principal)
CPT/HCPCS: 76536

== ENCOUNTER → 2022-12-07 08:34 | Outpatient (BNVA) | payer OTHER, SELFPAY | PROVIDERS: PCP Family Medicine; Visit Provider Internal Medicine Pulmonary Disease | DX: R06.09 Other forms of dyspnea (principal); R91.1 Solitary pulmonary nodule; I25.10 Atherosclerotic heart disease of native coronary artery without angina pectoris; Z95.1 Presence of aortocoronary bypass graft; I48.20 Chronic atrial fibrillation, unspecified; Z79.01 Long term (current) use of anticoagulants; Z87.891 Personal history of nicotine dependence | CPT/HCPCS: 99214 ==

== ENCOUNTER → 2022-12-10 09:11 | Outpatient (BNVA) | payer OTHER, SELFPAY | PROVIDERS: PCP Family Medicine; Visit Provider Podiatrist Foot & Ankle Surgery | DX: I73.9 Peripheral vascular disease, unspecified (principal); B35.1 Tinea unguium; E11.9 Type 2 diabetes mellitus without complications; M20.41 Other hammer toe(s) (acquired), right foot; M20.42 Other hammer toe(s) (acquired), left foot; Z79.4 Long term (current) use of insulin | CPT/HCPCS: 11721; 99204 ==

== ENCOUNTER → 2022-12-19 12:39 | Outpatient (BNVA) | payer OTHER, SELFPAY | PROVIDERS: PCP Family Medicine; Visit Provider Internal Medicine | DX: I12.9 Hypertensive chronic kidney disease with stage 1 through stage 4 chronic kidney disease, or unspecified chronic kidney disease (principal); N18.9 Chronic kidney disease, unspecified; Z87.891 Personal history of nicotine dependence; Z95.1 Presence of aortocoronary bypass graft; I48.91 Unspecified atrial fibrillation; Z79.01 Long term (current) use of anticoagulants; Z79.82 Long term (current) use of aspirin | CPT/HCPCS: 99214 ==

== ENCOUNTER 2022-12-28 08:34 | Outpatient (CLI) | payer OTHER, SELFPAY ==
--- NOTE | 2022-12-28 09:21 | USCV_ITS ---
Jonathan Baker Age: 72 Gender: M : 1950 Exam Date: 12/28/2022 09:49 Ordering Phys: Luana Villegas MD Technologist: Exam Location: [facility] Indication: screening HISTORY: Diameter (cm) AP x Transverse x Length Velocity (cm/s) Waveform Prox Aorta: 1.55 x 1.98 x 119.20 Mid Aorta: 1.20 x 1.70 x 115.00 Distal Aorta: 1.39 x 1.84 x 120.60 Right Iliac Prox: 1.00 x 1.13 x 126.10 Left Iliac Prox: 0.87 x 1.39 x 147.40 Stent Prox Landing x x Aneurysmal Sac Max x x Lt Lat Sac Dim Rt Lat Sac Dim Stent Dist Landing x x Right Iliac Stent x x Left Iliac Stent x x Right Renal Art Left Renal Art FINDINGS: wnl CONCLUSIONS No evidence of abdominal aortic or bilateral iliac aneurysm. Bowen Munoz MD (Electronically Signed) Final Date: 28 December 2022 11:55 S
== END 2022-12-28 08:35 | disposition home or self-care (01) ==
LOC: RAD 08:37
PROVIDERS: PCP Family Medicine; Visit Provider Family Medicine
DX: Z13.6 Encounter for screening for cardiovascular disorders (principal)
CPT/HCPCS: 76706

== ENCOUNTER → 2023-01-14 08:16 | Outpatient (BNVA) | payer OTHER, SELFPAY | PROVIDERS: PCP Family Medicine; Referring Provider Family Medicine; Visit Provider Specialist | DX: M70.61 Trochanteric bursitis, right hip (principal); M70.62 Trochanteric bursitis, left hip | CPT/HCPCS: 20610; 73523; 99204; J1100; J2795; J3301 ==

== ENCOUNTER → 2023-01-24 14:13 | Outpatient (BNVA) | payer OTHER, SELFPAY | PROVIDERS: Referring Provider Family Medicine; Visit Provider Internal Medicine | DX: E07.9 Disorder of thyroid, unspecified (principal); E04.9 Nontoxic goiter, unspecified; E04.1 Nontoxic single thyroid nodule; E11.649 Type 2 diabetes mellitus with hypoglycemia without coma; Z79.84 Long term (current) use of oral hypoglycemic drugs | CPT/HCPCS: 99204 ==

== ENCOUNTER 2023-01-29 11:43 | Outpatient (RCR) | payer OTHER, SELFPAY | END 2023-01-30 23:59 | disposition home or self-care (01) | LOC: SPT 11:43 | PROVIDERS: Visit Provider Specialist | DX: M25.551 Pain in right hip (principal) | CPT/HCPCS: 97161 ==

== ENCOUNTER 2023-01-31 06:00 | Outpatient (RCR) | payer OTHER, SELFPAY | END 2023-03-01 23:59 | disposition home or self-care (01) | LOC: SPT 06:00 | PROVIDERS: PCP Family Medicine; Visit Provider Specialist | DX: M25.551 Pain in right hip (principal) | CPT/HCPCS: 97110 ==

== ENCOUNTER → 2023-02-07 13:15 | Outpatient (BNVA) | payer OTHER, SELFPAY | PROVIDERS: Visit Provider Internal Medicine | DX: Z53.9 Procedure and treatment not carried out, unspecified reason (principal) | CPT/HCPCS: 99204; 99999 ==

== ENCOUNTER → 2023-02-11 07:56 | Outpatient (BNVA) | payer OTHER, SELFPAY | PROVIDERS: Visit Provider Podiatrist Foot & Ankle Surgery | DX: I73.9 Peripheral vascular disease, unspecified (principal); B35.1 Tinea unguium; E11.9 Type 2 diabetes mellitus without complications; Z79.4 Long term (current) use of insulin; E04.1 Nontoxic single thyroid nodule; E04.9 Nontoxic goiter, unspecified; E07.9 Disorder of thyroid, unspecified; Z79.84 Long term (current) use of oral hypoglycemic drugs | CPT/HCPCS: 11721; 99214 ==

== ENCOUNTER 2023-02-15 08:58 | Outpatient (CLI) | payer OTHER, SELFPAY ==
--- NOTE | 2023-02-15 10:00 | US_ITS ---
WS: [id number] ULTRASOUND THYROID FNA CLINICAL INFORMATION: nodule TECHNIQUE: Ultrasound-guided FNA FINDINGS: The procedure including risks, benefits, and complications were discussed with the patient who agreed to proceed. Timeout was performed. Using sterile technique patient was prepped and draped in usual sterile fashion. After 1% lidocaine, using ultrasound guidance, a 25-gauge needle was advanc ed into the RIGHT thyroid nodule. 5 passes were made with active aspiration. Pathology was present fo r slide preparation. No immediate complications. Patient remained in the ultrasound suite 10 minutes postprocedure with intermittent ultrasound to ens ure no hematoma. No significant hematoma 10 minutes postprocedure. US/US biopsy/FNA thyroid [id number] IMPRESSION: 1. Uncomplicated ultrasound-guided thyroid FNA of the dominant mid RIGHT thyro id nodule 2. Cytology is pending.
== END 2023-02-15 08:59 | disposition home or self-care (01) ==
LOC: RAD 09:01
PROVIDERS: PCP Family Medicine; Visit Provider Internal Medicine
DX: E04.1 Nontoxic single thyroid nodule (principal); E04.9 Nontoxic goiter, unspecified
CPT/HCPCS: 10005; 88173

== ENCOUNTER → 2023-03-07 10:47 | Outpatient (BNVA) | payer OTHER, SELFPAY | PROVIDERS: PCP Family Medicine; Visit Provider Internal Medicine Cardiovascular Disease | DX: I48.91 Unspecified atrial fibrillation (principal); I45.10 Unspecified right bundle-branch block; I48.92 Unspecified atrial flutter; I10 Essential (primary) hypertension; I73.9 Peripheral vascular disease, unspecified; E11.9 Type 2 diabetes mellitus without complications; E78.5 Hyperlipidemia, unspecified; Z79.4 Long term (current) use of insulin; Z87.891 Personal history of nicotine dependence; Z79.01 Long term (current) use of anticoagulants | CPT/HCPCS: 93005; 99214 ==

== ENCOUNTER 2023-03-15 10:48 | Outpatient (RCR) | payer OTHER, SELFPAY | END 2023-03-22 23:59 | disposition home or self-care (01) | LOC: SPT 10:48 | PROVIDERS: PCP Family Medicine; Visit Provider Specialist | DX: M25.551 Pain in right hip (principal) | CPT/HCPCS: 97110 ==

== ENCOUNTER → 2023-04-22 08:14 | Outpatient (BNVA) | payer OTHER, SELFPAY | PROVIDERS: PCP Family Medicine; Visit Provider Podiatrist Foot & Ankle Surgery | DX: B35.1 Tinea unguium (principal); E11.9 Type 2 diabetes mellitus without complications; I73.9 Peripheral vascular disease, unspecified; Z79.4 Long term (current) use of insulin | CPT/HCPCS: 11721 ==

== ENCOUNTER → 2023-05-15 08:35 | Outpatient (BNVA) | payer OTHER, SELFPAY | PROVIDERS: PCP Family Medicine; Visit Provider Internal Medicine | DX: E11.9 Type 2 diabetes mellitus without complications (principal); E04.1 Nontoxic single thyroid nodule; E04.9 Nontoxic goiter, unspecified; E07.9 Disorder of thyroid, unspecified; Z79.4 Long term (current) use of insulin; Z79.84 Long term (current) use of oral hypoglycemic drugs | CPT/HCPCS: 36415; 80053; 80061; 82044; 83036; 84439; 84443; 99214 ==

== ENCOUNTER 2023-06-05 06:58 | Outpatient (CLI) | payer OTHER, SELFPAY ==
--- NOTE | 2023-06-05 07:09 | CT_ITS ---
WS: [id number] CT CHEST TECHNIQUE: Noncontrast CT of the chest with coronal and sagittal reformatted images. CLINICAL INFORMATION: LUNG NODULE, PLEURAL THICKENING, LINEAR SCARRING LEFT MID/LO COMPARISON: CT chest 10/31/2022 DLP: 618.[address] scans at [facility] use at least one of these dose optimization techniques: automated e xposure control; mA and/or kV adjustment per patient size (includes targeted exams where dose is matc hed to clinical indication); or iterative reconstruction. FINDINGS: Spiculated nodule in the RIGHT middle lobe measuring 13 x 11 mm is not significantly change d compared to the prior studies. Appearance remains suspicious. This was not FDG avid on the recent P ET/CT. Recommend continued surveillance. Stable pleural thickening with subsegmental atelectasis in the LEFT lung. Stable opacity in the lingu la likely rounded atelectasis is unchanged in appearance. Moderate to advanced chronic emphysematous changes. Markedly enlarged heterogeneous RIGHT thyroid lob e is similar in appearance. RIGHT to LEFT mass effect on the trachea at the thoracic inlet. Aortic ca lcification. Prior sternotomy with CABG. No mediastinal or hilar lymphadenopathy. Cholecystectomy clips. Adrenal glands are normal. LEFT renal cyst. Splenic artery calcification. IVC filter. Normal GE junction. Hypertrophic changes thoracic spine. IMPRESSION: 1. No significant changes since 10/31/2022. 2. Stable RIGHT middle lobe spiculated nodule measuring 13 mm. Recommend continued surveillance with 6 to 12-month follow-up. 3. Stable suspected round atelectasis in the lingula. 4. Stable pleural thickening LEFT lower lobe with subsegmental atelectasis LEFT upper and lower lobe s. 5. Prior CABG with sternotomy. 6. Cholecystectomy. 7. RIGHT thyroid goiter.
== END 2023-06-05 06:59 | disposition home or self-care (01) ==
PROVIDERS: PCP Family Medicine; Visit Provider Family Medicine
DX: R91.1 Solitary pulmonary nodule (principal); J92.9 Pleural plaque without asbestos; J98.4 Other disorders of lung; Z95.1 Presence of aortocoronary bypass graft; Z90.49 Acquired absence of other specified parts of digestive tract
CPT/HCPCS: 71250

== ENCOUNTER 2023-06-11 08:37 | Outpatient (CLI) | payer OTHER, SELFPAY ==
--- NOTE | 2023-06-11 08:00 | NM_ITS ---
WS: [id number] NUCLEAR MEDICINE THYROID UPTAKE AND SCAN HISTORY: E07.9 - Disorder of thyroid, unspecified COMPARISON: None available. Radionucleotide: 133 uCi Iodine-123 sodium iodide capsule. Oral ingestion. Imaging performed at 24 hours post ingestion of capsule. Marker placed over the chin and suprasternal notch. No thyroid is identified at 24 hours postingestion. Patient has been off his thyroid medication the a ppropriate time to perform this examination. Thyroid uptake at 24 hours: 1.4%. (Normal uptake at 24 hours 10-30%). IMPRESSION: No visualized thyroid gland identified at 24 hours post injection of the radionuclide. No thyroid act ivity.
== END 2023-06-11 08:38 | disposition home or self-care (01) ==
LOC: RAD 08:38
PROVIDERS: PCP Family Medicine; Visit Provider Internal Medicine
DX: E07.9 Disorder of thyroid, unspecified (principal); E04.1 Nontoxic single thyroid nodule
CPT/HCPCS: 78014; A9516

== ENCOUNTER 2023-06-17 09:43 | Inpatient (IN) | payer OTHER, SELFPAY ==
[2023-06-17] VITALS (39 sets, daily range): BP systolic 105–201; BP diastolic 73–155; PULSE 86–146; RESP 13–30; TEMP 36.8–36.9; O2SAT 92–97; BMI 33.2
--- NOTE | 2023-06-17 09:50 | ED_ITS ---
HPI - Arrhythmia/Palpitations General: Chief Complaint: Arrhythmia/Palpitations Stated Complaint: Chest Pain Time Seen by Provider: 06/17/23 09:50 History of Present Illness: 73-year-old male presents emergency department with complaints of feeling like he is having his heart intermittently racing and feeling dizzy and lightheaded when this occurs. Patient states that he has seen endocrinology in the past for goiter and has had a history of atrial flutter and has seen Dr. Dennison in the past. Review of Systems General: Reports: 10 or more systems reviewed and unremarkable except in HPI and below Card: Reports: chest pain, palpitations and irregular heart rhythm PFSH ED PFSH: Medical History Acute kidney injury superimposed on chronic kidney disease Atherosclerosis Atrial fibrillation Atrial fibrillation with rapid ventricular response Atrial flutter Chest pain Chronic atrial fibrillation Chronic kidney disease Creatinine elevation Depressive disorder Elevated troponin I level Essential hypertension Gout Hyperlipidemia NSTEMI (non-ST elevated myocardial infarction) Peripheral neuropathy Troponin level elevated Type 2 diabetes mellitus Surgical History H/O knee surgery History of cholecystectomy Hx of CABG S/P hernia surgery Family History Father Myocardial infarct Mother Stroke Other Family history of premature coronary artery disease Social History Smoking and tobacco/nicotine status: former use of tobacco/nicotine Quit status (tobacco/nicotine): has quit using Year quit tobacco: 1971 Former quit date comment: 1ppd x 20 years Physical Exam 2 Narrative: EXAM NARRATIVE: Constitutional: the patient appeared well nourished and normally developed. Vital signs as documented. HENMT: Head exam is unremarkable. Neck is without jugular venous distension, thyromegaly, or carotid bruits. Carotid upstrokes are brisk bilaterally. Eye: No scleral icterus or corneal arcus noted Resp: Lungs are clear to auscultation and percussion. Cardio: Irregularly irregular rhythm. Positive S1, S2, negative S3, S4. No murmurs, rubs or gallops. GI: Abdominal exam reveals normal bowel sounds, no masses, no organomegaly and no aortic enlargement. Soft, nontender to palpation. No obvious palpable masses noted. No hepatomegaly appreciated. Extremity: Extremities are non-edematous and both femoral and pedal pulses are normal. Moves all extremities well, she has sensation in all extremities. Neuro: Alert and oriented x4, person, place, time and situation. Cranial nerves II through XII are grossly intact, there is no focal neurological deficits that I can appreciate at present. Motor strength in the upper and lower extremities are equal and bilateral 5/5. Intermittent dizziness. Psych: Cooperative, calm, normal thought process, appropriate judgment. Skin: No lesions, rashes. Course Vital Signs: Vital signs: Vital Signs Temperature 97.6 F 06/28/23 11:14 Pulse Rate 66 06/28/23 15:00 Respiratory Rate 16 06/28/23 15:00 Blood Pressure 131/66 06/28/23 16:26 Pulse Oximetry 95 06/28/23 15:00 Oxygen Delivery Me thod Nasal Cannula 06/28/23 14:17 Oxygen Flow Rate 2 06/28/23 14:17 MDM - Arrhythmia/Palpitations Medical Decision Making Physical exam completed and documented, laboratory evaluation to include CBC CMP cardiac enzymes and EKG as well as chest x-ray. After review of the patient's laboratory it does appear that he has acute kidney injury with an elevated creatinine. We will contact the hospitalist physician to request admission for additional evaluation treatment and care and to control the patient's atrial flutter/fibrillation with rapid ventricular response. Medical Records I reviewed the patient's medical records. Lab Data I reviewed the patient's lab results. 06/28/23 04:43 06/28/23 04:43 Radiology Impressions Thyroid Ultrasound 06/22/23 10:50 IMPRESSION: 1. Heterogeneous, enlarged right thyroid lobe. 2. Prominent nodules in the left thyroid lobe and isthmus. Recommend fine-needle aspiration of these nodules for definitive characterization. 3. No thyroid hyperemia is seen. Chest X-Ray 06/23/23 23:23 IMPRESSION: 1. Accentuated cardiac silhouette size and vascularity. See discussion above. 2. Stable left basilar opacity/pleural effusion. New ill-defined patchy opacity in the right mid lung as described. Laboratory Results WBC 8.29 10^3/uL (3.29-11.43) 06/17/23 09:55 RBC 4.59 10^6/uL (3.85-5.65) 06/17/23 09:55 Hgb 13.30 g/dL (11.27-16.99) 06/17/23 09:55 Hct 41.8 % (37-53) 06/17/23 09:55 MCV 91.1 fl (82-101) 06/17/23 09:55 MCH 29.0 pg (27-33) 06/17/23 09:55 MCHC 31.8 g/dL (30-55) 06/17/23 09:55 RDW 13.4 % (12.1-15.1) 06/17/23 09:55 Plt Count 188 10^3/cmm (157-399) 06/17/23 09:55 MPV 10.4 fL (7.4-10.4) 06/17/23 09:55 Neut % (Auto) 73.2 % 06/17/23 09:55 Lymph % (Auto) 15.6 % 06/17/23 09:55 [place] % (Auto) 8.3 % 06/17/23 09:55 Eos % (Auto) 1.9 % 06/17/23 09:55 Baso % (Auto) 0.6 % 06/17/23 09:55 Neut # (Auto) 6.07 10^3/uL (1.8-7.7) 06/17/23 09:55 Lymph # (Auto) 1.3 10^3/uL (0.8-4.8) 06/17/23 09:55 [place] # (Auto) 0.7 10^3/uL (0.2-0.9) 06/17/23 09:55 Eos # (Auto) 0.2 10^3/uL (0.0-0.8) 06/17/23 09:55 Baso # (Auto) 0.1 10^3/uL (0.0-0.1) 06/17/23 09:55 Nucleated RBC % (auto) 0 % 06/17/23 09:55 Nucleated RBCs # 0.0 /100WBC 06/17/23 09:55 PT 17.50 SECONDS (12.1-14.9) H 06/17/23 09:55 INR 1.39 (0.8-1.2) H 06/17/23 09:55 APTT 33.6 SECONDS (23.9-36.7) 06/17/23 09:55 Sodium 137 mmol/L (136-145) 06/17/23 09:55 Potassium 5.1 mmol/L (3.5-5.1) 06/17/23 09:55 Chloride 100 mmol/L (98-107) 06/17/23 09:55 Carbon Dioxide 26 mmol/L (22-29) 06/17/23 09:55 Anion Gap 16.1 (5-19) 06/17/23 09:55 BUN 40 mg/dL (8-23) H 06/17/23 09:55 Creatinine 2.5 mg/dL (0.7-1.2) H 06/17/23 09:55 GFR Calculation Not Reportable 06/17/23 09:55 Glucose 186 mg/dL (65-115) H 06/17/23 09:55 Calculated Osmolality 299 mOsm/kg (285-295) H 06/17/23 09:55 Calcium 9.0 mg/dL (8.5-10.5) 06/17/23 09:55 Magnesium 1.6 mg/dL (1.7-2.3) L 06/17/23 09:55 Total Bilirubin 0.5 mg/dL (0.15-1.2) 06/17/23 09:55 AST 16 U/L (0-40) 06/17/23 09:55 ALT 17 U/L (0-41) 06/17/23 09:55 Alkaline Phosphatase 129 U/L (40-130) 06/17/23 09:55 Troponin T Baseline 84 ng/L (0-15) H 06/17/23 09:55 NT-Pro-B Natriuret Pep 1883 pg/mL (0-450) H 06/17/23 09:55 Total Protein 6.6 g/dL (6.6-8.7) 06/17/23 09:55 Albumin 4.3 g/dL (3.5-5.2) 06/17/23 09:55 Globulin 2.3 g/dL (1.3-4.6) 06/17/23 09:55 TSH 0.01 uIU/mL (0.27-4.20) L 06/17/23 09:55 Free T4 2.78 ng/dL (0.82-1.77) H 06/17/23 09:55 Imaging Data CXR: Radiologist's impression: Radiology Impressions Chest X-Ray 06/17/23 09:51 IMPRESSION: No acute findings. All radiology interpretation(s) finalized by discharge EKG Data UNCTIONAL TACHYCARDIA, POSSIBLE ATRIAL FLUTTER PATTERN CONSISTENT WITH PULMONARY DISEASE INCOMPLETE RIGHT BUNDLE BRANCH BLOCK [90+ ms QRS DURATION, TERMINAL R IN V1/V2, 40+ ms S IN I/aVL/V4/V5/V6] RIGHT VENTRICULAR HYPERTROPHY [SOME/ALL OF: PROMINENT R IN V1, LATE TRANSITION, RAD, MATTHEW, SSS] ST DEPRESSION, CONSIDER SUBENDOCARDIAL INJURY [0.1+ mV ST DEPRESSION] Compared to ECG 03/07/2023 10:55:17 Right ventricular hypertrophy now present Atrial abnormality now present ST (T wave) deviation now present Sinus rhythm no longer present Electronically Signed On 06-17-2023 23:16:03 CDT by Petty Yoo M.D.: Other EKG comments: Thyroid Ultrasound 06/22/23 10:50 IMPRESSION: 1. Heterogeneous, enlarged right thyroid lobe. 2. Prominent nodules in the left thyroid lobe and isthmus. Recommend fine-needle aspiration of these nodules for definitive characterization. 3. No thyroid hyperemia is seen. Chest X-Ray 06/23/23 23:23 IMPRESSION: 1. Accentuated cardiac silhouette size and vascularity. See discussion above. 2. Stable left basilar opacity/pleural effusion. New ill-defined patchy opacity in the right mid lung as described. Critical Care Time Critical Care Time: Critical Care Time: Yes Total Critical Care Time: 60 Attestation: This case had a high probability of a clinically significant, sudden, or life threatening deterioration of this patient's condition which required my full and direct attention, intervention and personal management. Discharge Plan Discharge Patient Disposition: Admitted As Inpatient Admit Provider: Wes Snowden Clinical Impression: Acute kidney injury, Atrial flutter with rapid ventricular response Condition: Stable Discharge Diet: Cardiac, Low Salt and Low Cholesterol Discharge Activity: Increase activity as tolerated Coding Level of Care Code ED Preparation Room Worker for Markg Natasha
--- NOTE | 2023-06-17 09:51 | XRR_ITS ---
PROCEDURE INFORMATION: Exam: XR Chest Exam date and time: 06/17/2023 9:55 AM Age: 73 years old Clinical indication: Shortness of breath; Additional info: Cxp TECHNIQUE: Imaging protocol: Radiologic exam of the chest. Views: 1 view. COMPARISON: 1. CT chest wo con [id number] 06/05/2023 7:13 AM 2. CR XR chest 1V portable [id number] 10/29/2022 8:05 PM FINDINGS: Lungs: Chronic asymmetric left pleural-parenchymal scarring. No consolidation. Pleural spaces: No substantial pleural effusion or pneumothorax. Heart/Mediastinum: No cardiomegaly. Mediastinal surgical clips. Vasculature: Aortic arch atherosclerotic calcification. Bones/joints: Prior median sternotomy. Degenerative changes along the spine and shoulders. Intraperitoneal space: Right upper abdomen surgical clips. Organs: Known asymmetric right thyroid enlargement. XR/XR chest 1V portable [id number] IMPRESSION: No acute findings.
--- NOTE | 2023-06-17 09:51 | ECG_ITS ---
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 Measurements Intervals [place] Rate: 146 P: 260 [place]: 91 QRS: 111 QRSD: 110 T: 26 QT: 287 QTc: 448 Interpretive Statements JUNCTIONAL TACHYCARDIA, POSSIBLE ATRIAL FLUTTER PATTERN CONSISTENT WITH PULMONARY DISEASE INCOMPLETE RIGHT BUNDLE BRANCH BLOCK [90+ ms QRS DURATION, TERMINAL R IN V1/V2, 40+ ms S IN I/aVL/V4/V5/V6] RIGHT VENTRICULAR HYPERTROPHY [SOME/ALL OF: PROMINENT R IN V1, LATE TRANSITION, RAD, MATTHEW, SSS] ST DEPRESSION, CONSIDER SUBENDOCARDIAL INJURY [0.1+ mV ST DEPRESSION] Compared to ECG 03/07/2023 10:55:17 Right ventricular hypertrophy now present Atrial abnormality now present ST (T wave) deviation now present Sinus rhythm no longer present Electronically Signed On 06-17-2023 23:16:03 CDT by Petty Yoo M.D. [id number]
[2023-06-17] MEDS: aspirin 81 mg Chew Tablet 324 MG PO (10:00)
[2023-06-17] MEDS: sodium chloride 0.9% 1,000 ML 999 ML IV (10:00)
[2023-06-17 10:01] LABS: Basophils # 0.1 10^3/uL (0.0-0.1); Basophils % 0.6 %; Eosinophils # 0.2 10^3/uL (0.0-0.8); Eosinophils % 1.9 %; Hematocrit 41.8 % (37-53); Lymphocytes # 1.3 10^3/uL (0.8-4.8); Lymphocytes % 15.6 %; Mean Corpuscular HGB Conc 31.8 g/dL (30-55); Mean Corpuscular Volume 91.1 fl (82-101); Mean Platelet Volume 10.4 fL (7.4-10.4); Monocytes # 0.7 10^3/uL (0.2-0.9); Monocytes % 8.3 %; Neutrophils # 6.07 10^3/uL (1.8-7.7); Neutrophils % 73.2 %; Nucleated Red Blood Cells % 0 %; Platelet Count 188 10^3/cmm (157-399); Red Blood Count 4.59 10^6/uL (3.85-5.65); Red Cell Distribution Width 13.4 % (12.1-15.1); White Blood Count 8.29 10^3/uL (3.29-11.43)
[2023-06-17] MEDS: dilTIAZem 5 mg/mL SDV 5 mL 20 MG IV (10:03)
[2023-06-17 10:27] LABS: INR 1.39 (0.8-1.2)
[2023-06-17 10:28] LABS: Partial Thromboplastin Time 33.6 SECONDS (23.9-36.7)
[2023-06-17 10:34] LABS: Troponin(5th) Baseline 84 ng/L (0-15)
[2023-06-17 10:43] LABS: Alanine Aminotransferase 17 U/L (0-41); Albumin Level 4.3 g/dL (3.5-5.2); Alkaline Phosphatase 129 U/L (40-130); Aspartate Amino Transferase 16 U/L (0-40); Blood Urea Nitrogen 40 mg/dL (8-23); Carbon Dioxide 26 mmol/L (22-29); Chloride 100 mmol/L (98-107); Globulin 2.3 g/dL (1.3-4.6); Glucose 186 mg/dL (65-115); NT Pro B Type Natriuretic Pept 1883 pg/mL (0-450); Osmolality Calculated 299 mOsm/kg (285-295); Sodium 137 mmol/L (136-145); Total Bilirubin 0.5 mg/dL (0.15-1.2); Total Protein 6.6 g/dL (6.6-8.7)
[2023-06-17 10:50] LABS: Anion Gap 16.1 (5-19)
[2023-06-17 10:51] LABS: Potassium 5.1 mmol/L (3.5-5.1)
--- NOTE | 2023-06-17 11:31 | PC.PHAR ---
FAMILY IN ROUTE WITH MEDICATION LIST FOR MED REC. 06/17/23 11:31 AM
[2023-06-17] MEDS: dilTIAZem 100 MG in sodium chloride 0.9% (add-van) 100 ML IV (11:35)
--- NOTE | 2023-06-17 11:47 | ECG_ITS ---
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 Measurements Intervals [place] Rate: 112 P: 0 [place]: 0 QRS: 95 QRSD: 104 T: -21 QT: 340 QTc: 464 Interpretive Statements Atrial fibrillation WITH RAPID VENTRICULAR RESPONSE BORDERLINE RIGHT AXIS DEVIATION [QRS AXIS > 90] LOW QRS VOLTAGE IN PRECORDIAL LEADS [QRS DEFLECTION < 1.0 mV IN CHEST LEADS] PATTERN CONSISTENT WITH PULMONARY DISEASE INCOMPLETE RIGHT BUNDLE BRANCH BLOCK [90+ ms QRS DURATION, TERMINAL R IN V1/V2, 40+ ms S IN I/aVL/V4/V5/V6] MODERATE ST DEPRESSION [0.05+ mV ST DEPRESSION] ABNORMAL QRS-T ANGLE [QRS-T AXIS DIFFERENCE > 60] Compared to ECG 03/07/2023 10:55:17 Low QRS voltage now present ST (T wave) deviation now present Sinus rhythm no longer present Electronically Signed On 06-17-2023 23:20:54 CDT by Petty Yoo M.D. [id number]
[2023-06-17 12:35] LABS: Troponin 5 2HR 71.11 ng/L (0-15)
--- NOTE | 2023-06-17 12:51 | PC.NURSE ---
Patient arrived from ER on a stretcher at apprx 12:30pm. This nurse and physician present at bedside. Patient has been educated on IV pump, activity, and medication. Nurse oriented patient and daughter to room and use of call chambers. Vital signs q15m. Cardizem gtt titrated up to 12. Nurse will continue to monitor patient.
--- NOTE | 2023-06-17 13:08 | PM.HP ---
Documented by User: Jeimy Allred 06/17/23 13:59 Providers/Chief Complaint Admitting Physician: Wes Snowden MD Primary Care Provider: Luana Villegas MD Chief Complaint: Chest Pain History of Present Illness Jonathan Baker is a 73 year old male who presented to the emergency department due to palpitations. Pt stated that he was going to take his blood pressure at home this morning when his cuff reading showed that his heart rate was elevated. He denies experiencing any chest pain but said that he can feel his heart racing at times. According to the patient, his symptom of elevated heart rate have been going on for the past several weeks, but his girlfriend finally told him that he needed to come to the ER, which is why he presented this morning. He also states that at times he becomes short of breath with exertion, but this has been going on long before he presented today. His history is significant for a CABG that occurred approximately 3 years ago, but the pt denies symptoms similar to that. A number of weeks ago, he was found to have hyperthyroidism and was started on methimazole. Other than chest palpitations, the patient denies any other symptoms, including chest pain, at this time. While in the ED, the patient was given IVFs, an IV push of 20 diltiazem followed by an IV drip of diltiazem titrated to 10. He was also given a 324 aspirin. Review of Systems General: Reports: 10 or more systems reviewed and unremarkable except in HPI and below Const: Denies: fever(s) or chills Eyes: Denies: change in vision Card: Reports: palpitations, irregular heart rhythm and dyspnea on exertion; Denies: chest pain, edema, swelling of feet/ankles or orthopnea Resp: Reports: dyspnea (with exertion. ) GI: Denies: abdominal pain, nausea, vomiting, diarrhea, constipation, change in bowel habits, hematochezia or melena : Denies: difficulty urinating, dysuria or hematuria Neuro: Denies: headache(s) Medications/Allergies Home Medications Medication Instructions Recorded Confirmed Last Taken Type aspirin 81 mg tablet,delayed 81 mg PO DAILY 10/14/19 06/17/23 06/17/23 History release (Adult Low Dose Aspirin) ezetimibe 10 mg tablet 10 mg PO DAILY 10/14/19 06/17/23 06/17/23 History allopurinol 100 mg tablet 150 mg PO DAILY 07/20/22 06/17/23 06/17/23 History cetirizine 10 mg tablet (Zyrtec) 10 mg PO DAILY 07/20/22 06/17/23 06/17/23 History cholecalciferol (vitamin D3) 25 75 mcg PO DAILY 07/20/22 06/17/23 06/17/23 History mcg (1,000 unit) tablet (Vitamin D3) docusate sodium 100 mg capsule 200 mg PO BID 07/20/22 06/17/23 06/17/23 History (Colace) gabapentin 600 mg tablet 600 mg PO BID 07/20/22 06/17/23 06/17/23 History insulin glargine 100 unit/mL 45 unit SUBCUT BID 07/20/22 06/17/23 06/17/23 History subcutaneous solution paroxetine HCl 40 mg tablet (Paxil) 40 mg PO DAILY 07/20/22 06/17/23 06/17/23 History rosuvastatin 40 mg tablet 20 mg PO DAILY 07/20/22 06/17/23 06/16/23 History sodium bicarbonate 650 mg tablet 650 mg PO BID 07/20/22 06/17/23 06/17/23 History tamsulosin 0.4 mg capsule (Flomax) 0.4 mg PO QPM 07/20/22 06/17/23 06/16/23 History albuterol sulfate 2.5 mg/3 mL 2.5 mg (3 mL) inhalation Q8H PRN 08/01/22 06/17/23 Unknown Rx (0.083 %) solution for nebulization shortness of breath or wheezing #75 mL calcitriol 0.25 mcg capsule 0.25 mcg PO QAM 10/10/22 06/17/23 06/17/23 History coenzyme Q10 100 mg capsule 100 mg PO DAILY PRN UNKNOWN 10/10/22 06/17/23 10/09/22 History flash glucose scanning reader #1 ea 02/11/23 06/17/23 Unknown Rx (FreeStyle Mati 2 [place]) flash glucose sensor (FreeStyle #6 ea 02/11/23 06/17/23 Unknown Rx Mati 2 Sensor kit) amiodarone 200 mg tablet (Pacerone) 200 mg PO DAILY 03/07/23 06/17/23 06/17/23 History apixaban 5 mg tablet (Eliquis) 5 mg PO BID #180 tabs 03/07/23 06/17/23 06/17/23 Rx omega-3 fatty acids 1,000 mg 1,000 mg PO BID 03/07/23 06/17/23 06/17/23 History capsule methimazole 10 mg tablet 20 mg PO DAILY #120 tabs 05/15/23 06/17/23 06/17/23 Rx Allergies Allergy/AdvReac Type Severity Reaction Status Date / Time No Known Allergies Allergy Verified 05/15/23 07:49 PFSH Acute PFSH: Medical History (Updated 06/17/23 @ 13:48 by Wes Snowden MD) Atherosclerosis Atrial fibrillation Atrial fibrillation with rapid ventricular response Atrial flutter Chest pain Chronic atrial fibrillation Chronic kidney disease Creatinine elevation Depressive disorder Elevated troponin I level Essential hypertension Gout Hyperlipidemia NSTEMI (non-ST elevated myocardial infarction) Peripheral neuropathy Troponin level elevated Surgical History H/O knee surgery History of cholecystectomy Hx of CABG S/P hernia surgery Family History Father Myocardial infarct Mother Stroke Other Family history of premature coronary artery disease Social History Smoking and tobacco/nicotine status: former use of tobacco/nicotine Quit status (tobacco/nicotine): has quit using Year quit tobacco: 1971 Former quit date comment: 1ppd x 20 years Vitals/I&O/Wt Last Vital Signs Temp 98.3 F 06/17/23 09:45 Pulse 140 H 06/17/23 12:00 Resp 20 H 06/17/23 12:00 BP 201/155 06/17/23 12:00 Pulse Ox 95 06/17/23 12:00 O2 Del Method Room Air 06/17/23 12:08 06/16/23 06/17/23 06/17/23 22:59 06:59 14:59 Intake Total 1001.5 / 1001.5 Balance 1001.5 / 1001.5 Weight last 48 hrs Weight 102.058 kg Physical Exam Narrative: General: pt is an alert, cooperative, conversant male sitting comfortably on room air. His daughter was also present for the encounter. HEENT: atraumatic, normocephalic. Neck: supple. Cardiac: tachycardic, irregular. No murmurs appreciated. Respiratory: clear to auscultation bilaterally. Abdomen: nontender, non-distended. Normoactive bowel sounds in all 4 quadrants. No obvious organomegaly. : deferred. Extremities: 2+ pulses in upper and lower extremities bilaterally. Brisk capillary refill. Skin: no edema, bruising, or cyanosis. Neuro: no focal neurologic deficits. Data 06/17/23 09:55 06/17/23 09:55 Other Labs: PT 17.50, INR 1.39 LFTs normal Troponin baseline 84, 120 minute 71.11, delta 12.89 BNP 1883 TSH, free T4 pending CXR by my read shows no acute findings. EKG by my read shows atrial fibrillation/flutter with RVR, right axis deviation A&P Assessment and plan (1) Atrial flutter: Pt EKG consistent with atrial flutter Continue diltiazem drip, start metoprolol. Continue Eliquis. Monitor troponin and BNP levels to evaluate for further heart strain. Magnesium levels ordered. CBC, BMP daily. (2) Hyperthyroidism: Pt was recently found to have hyperthyroidism and was started on methimazole. Thyroid results are pending. Will treat accordingly based on results. (3) Type 2 diabetes mellitus: Start sliding scale insulin. (4) FABI (acute kidney injury): Pt has CKD that has now been complicated by an acute injury as renal labs have worsened. Hold any medications that may contribute to FABI. Plan Eliquis will suffice for DVT prophylaxis. Coding Level of Care Code 46357 Diagnoses Atrial flutter I48.92 Hyperthyroidism E05.90 Type 2 diabetes mellitus E11.9 FABI (acute kidney injury) N17.9 Time Spent (min) 42 Documented by User: Wes Snowden MD 06/17/23 14:40 Providers/Chief Complaint Chief Complaint: Chest Pain History of Present Illness Jonathan Baker is a 73 year old male who presented to the emergency department due to palpitations. Pt stated that he was going to take his blood pressure at home this morning when his cuff reading showed that his heart rate was elevated. He denies experiencing any chest pain but said that he can feel his heart racing at times. According to the patient, his symptom of elevated heart rate have been going on for the past several weeks, but his girlfriend finally told him that he needed to come to the ER, which is why he presented this morning. He also states that at times he becomes short of breath with exertion, but this has been going on long before he presented today. His history is significant for a CABG that occurred approximately 3 years ago, but the pt denies symptoms similar to that. A number of weeks ago, he was found to have hyperthyroidism and was started on methimazole. Other than chest palpitations, the patient denies any other symptoms, including chest pain, at this time. While in the ED, the patient was given IVFs, an IV push of 20 diltiazem followed by an IV drip of diltiazem titrated to 10. He was also given a 324 aspirin. Patient was seen in tandem with the medical student. He also reports that he has been compliant with his amiodarone lately. He was recently put on methimazole for concern of hyperthyroidism. Medications/Allergies Home Medications Medication Instructions Recorded Confirmed Last Taken Type aspirin 81 mg tablet,delayed 81 mg PO DAILY 10/14/19 06/17/23 06/17/23 History release (Adult Low Dose Aspirin) ezetimibe 10 mg tablet 10 mg PO DAILY 10/14/19 06/17/23 06/17/23 History allopurinol 100 mg tablet 150 mg PO DAILY 07/20/22 06/17/23 06/17/23 History cetirizine 10 mg tablet (Zyrtec) 10 mg PO DAILY 07/20/22 06/17/23 06/17/23 History cholecalciferol (vitamin D3) 25 75 mcg PO DAILY 07/20/22 06/17/23 06/17/23 History mcg (1,000 unit) tablet (Vitamin D3) docusate sodium 100 mg capsule 200 mg PO BID 07/20/22 06/17/23 06/17/23 History (Colace) gabapentin 600 mg tablet 600 mg PO BID 07/20/22 06/17/23 06/17/23 History insulin glargine 100 unit/mL 45 unit SUBCUT BID 07/20/22 06/17/23 06/17/23 History subcutaneous solution paroxetine HCl 40 mg tablet (Paxil) 40 mg PO DAILY 07/20/22 06/17/23 06/17/23 History rosuvastatin 40 mg tablet 20 mg PO DAILY 07/20/22 06/17/23 06/16/23 History sodium bicarbonate 650 mg tablet 650 mg PO BID 07/20/22 06/17/23 06/17/23 History tamsulosin 0.4 mg capsule (Flomax) 0.4 mg PO QPM 07/20/22 06/17/23 06/16/23 History albuterol sulfate 2.5 mg/3 mL 2.5 mg (3 mL) inhalation Q8H PRN 08/01/22 06/17/23 Unknown Rx (0.083 %) solution for nebulization shortness of breath or wheezing #75 mL calcitriol 0.25 mcg capsule 0.25 mcg PO QAM 10/10/22 06/17/23 06/17/23 History coenzyme Q10 100 mg capsule 100 mg PO DAILY PRN UNKNOWN 10/10/22 06/17/23 10/09/22 History flash glucose scanning reader #1 ea 02/11/23 06/17/23 Unknown Rx (FreeStyle Mati 2 [place]) flash glucose sensor (FreeStyle #6 ea 02/11/23 06/17/23 Unknown Rx Mati 2 Sensor kit) amiodarone 200 mg tablet (Pacerone) 200 mg PO DAILY 03/07/23 06/17/23 06/17/23 History apixaban 5 mg tablet (Eliquis) 5 mg PO BID #180 tabs 03/07/23 06/17/23 06/17/23 Rx omega-3 fatty acids 1,000 mg 1,000 mg PO BID 03/07/23 06/17/23 06/17/23 History capsule methimazole 10 mg tablet 20 mg PO DAILY #120 tabs 05/15/23 06/17/23 06/17/23 Rx Allergies Allergy/AdvReac Type Severity Reaction Status Date / Time No Known Allergies Allergy Verified 05/15/23 07:49 PFSH Acute PFSH: Medical History (Updated 06/17/23 @ 13:48 by Wes Snowden MD) Atherosclerosis Atrial fibrillation Atrial fibrillation with rapid ventricular response Atrial flutter Chest pain Chronic atrial fibrillation Chronic kidney disease Creatinine elevation Depressive disorder Elevated troponin I level Essential hypertension Gout Hyperlipidemia NSTEMI (non-ST elevated myocardial infarction) Peripheral neuropathy Troponin level elevated Surgical History H/O knee surgery History of cholecystectomy Hx of CABG S/P hernia surgery Family History Father Myocardial infarct Mother Stroke Other Family history of premature coronary artery disease Social History Smoking and tobacco/nicotine status: former use of tobacco/nicotine Quit status (tobacco/nicotine): has quit using Year quit tobacco: 1971 Former quit date comment: 1ppd x 20 years Data 06/17/23 09:55 06/17/23 09:55 A&P Assessment and plan (1) Atrial flutter: Pt EKG consistent with atrial flutter Continue diltiazem drip, start metoprolol. Continue Eliquis. Monitor troponin and BNP levels to evaluate for further heart strain. Magnesium levels ordered. CBC, BMP daily. Cardiology consultation. He was previously on amiodarone, and has had recurrence of atrial fibrillation with rapid ventricular rate on 200 mg of amiodarone daily. He reports he has been compliant with the treatment. He is also recently developed hyperthyroidism, for which she was prescribed methimazole recently per endocrine. This happened sometime after May 15. (2) Hyperthyroidism: (3) Type 2 diabetes mellitus: Start sliding scale insulin. Continue long-acting insulin but at reduced amounts secondary to hospitalization as well as acute kidney injury. (4) FABI (acute kidney injury): Pt has CKD that has now been complicated by an acute injury as renal labs have worsened. Hold any medications that may contribute to FABI. Repeat BMP tomorrow and daily Plan Multiple other medical problems as documented in the past medical history Eliquis will suffice for DVT prophylaxis. Full code currently Attestations Medical Necessity Statement*: Will require greater than 2 midnight stay for treatment of atrial fibrillation with rapid ventricular rate, acute kidney injury Diagnoses Atrial flutter I48.92 Hyperthyroidism E05.90 Type 2 diabetes mellitus E11.9 FABI (acute kidney injury) N17.9 Time Spent (min) 42
[2023-06-17 13:41] LABS: Free T4 Free Thyroxine 2.78 ng/dL (0.82-1.77); Thyroid Stimulating Hormone 0.01 uIU/mL (0.27-4.20)
[2023-06-17 14:25] LABS: Magnesium 1.6 mg/dL (1.7-2.3)
--- NOTE | 2023-06-17 14:44 | ECG_ITS ---
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 Measurements Intervals [place] Rate: 105 P: 0 DE: 0 QRS: 72 QRSD: 104 T: -11 QT: 344 QTc: 456 Interpretive Statements Atrial fibrillation WITH RAPID VENTRICULAR RESPONSE LOW QRS VOLTAGE IN PRECORDIAL LEADS [QRS DEFLECTION < 1.0 mV IN CHEST LEADS] PATTERN CONSISTENT WITH PULMONARY DISEASE INCOMPLETE RIGHT BUNDLE BRANCH BLOCK [90+ ms QRS DURATION, TERMINAL R IN V1/V2, 40+ ms S IN I/aVL/V4/V5/V6] MINIMAL ST DEPRESSION [0.025+ mV ST DEPRESSION] ABNORMAL QRS-T ANGLE [QRS-T AXIS DIFFERENCE > 60] Compared to ECG 06/17/2023 11:47:48 No significant changes Electronically Signed On 06-17-2023 23:22:29 CDT by Petty Yoo M.D. [email or web address]
--- NOTE | 2023-06-17 14:45 | P.CONIM_ITS ---
Providers/Reason For Consult Consulting Physician/Specialty*: Dr. Gallo , Cardiology Reason for Consult*: A. fib/flutter with RVR, Hyperthyroidism Attending Physician: Wes Snowden MD Primary Care Provider: Luana Villegas MD History of Present Illness History of Present Illness Jonathan Baker is a 73 year old male with past medical history of CAD s/p CABG ?2 (CANTOR to LAD and right radial to D1) in April, by Dr. Connell, hypertension, Atrial flutter/fib,HLD,? statin intolerance, CKD stage 3 (baseline 1.5-1.9) and TYRESE. He also has history of hypertension, diabetes mellitus type II, diabetic nephropathy, history of DVT and PE s/p IVC filter, history of paroxysmal atrial fibrillation post CABGx 2. He was started on amiodarone gtt and transitioned to PO amiodarone in 07/2022 .? ?EKG does not show any significant ischemic changes.? Echo shows a grossly kirk l LV systolic function and stress test did not reveal any ischemia. He had stress test secondary to troponin elevation and did not reveal significant ischemia.? He was cardioverted back to normal sinus rhythm.? He presented to the ER with?palpitations for few weeks and his girlfriend finally told him that he needed to come to the ER, which is why he presented here. No chest pain occasional short of breath with exertion. He was found to have hyperthyroidism and was started on methimazole recently. He underwent 24 hr MCCLAIN uptake that showed no uptake. He was started on diltiazem gtt @ 12.5 mg/hr. He is comfortable at this time and HR is in 90's at this time. EKG showed atrial flutter with RVR. Review of Systems General: Reports: 10 or more systems reviewed and unremarkable except in HPI and below Const: Denies: fever(s) or chills Eyes: Denies: change in vision Card: Reports: palpitations, irregular heart rhythm and dyspnea on exertion; Denies: chest pain, edema, swelling of feet/ankles or orthopnea Resp: Reports: dyspnea (with exertion. ) GI: Denies: abdominal pain, nausea, vomiting, diarrhea, constipation, change in bowel habits, hematochezia or melena : Denies: difficulty urinating, dysuria or hematuria Musc: Denies: extremity pain or extremity swelling Skin/Breast: Denies: rash Neuro: Denies: headache(s) Nilson/Lymph: Denies: petechiae or purpura All/Imm: Denies: tongue swelling or facial swelling Medications/Allergies Home Medications Medication Instructions Recorded Confirmed Last Taken Type aspirin 81 mg tablet,delayed 81 mg PO DAILY 10/14/19 06/17/23 06/17/23 History release (Adult Low Dose Aspirin) ezetimibe 10 mg tablet 10 mg PO DAILY 10/14/19 06/17/23 06/17/23 History allopurinol 100 mg tablet 150 mg PO DAILY 07/20/22 06/17/23 06/17/23 History cetirizine 10 mg tablet (Zyrtec) 10 mg PO DAILY 07/20/22 06/17/23 06/17/23 History cholecalciferol (vitamin D3) 25 75 mcg PO DAILY 07/20/22 06/17/23 06/17/23 History mcg (1,000 unit) tablet (Vitamin D3) docusate sodium 100 mg capsule 200 mg PO BID 07/20/22 06/17/23 06/17/23 History (Colace) gabapentin 600 mg tablet 600 mg PO BID 07/20/22 06/17/23 06/17/23 History insulin glargine 100 unit/mL 45 unit SUBCUT BID 07/20/22 06/17/23 06/17/23 History subcutaneous solution paroxetine HCl 40 mg tablet (Paxil) 40 mg PO DAILY 07/20/22 06/17/23 06/17/23 History rosuvastatin 40 mg tablet 20 mg PO DAILY 07/20/22 06/17/23 06/16/23 History sodium bicarbonate 650 mg tablet 650 mg PO BID 07/20/22 06/17/23 06/17/23 History tamsulosin 0.4 mg capsule (Flomax) 0.4 mg PO QPM 07/20/22 06/17/23 06/16/23 History albuterol sulfate 2.5 mg/3 mL 2.5 mg (3 mL) inhalation Q8H PRN 08/01/22 06/17/23 Unknown Rx (0.083 %) solution for nebulization shortness of breath or wheezing #75 mL calcitriol 0.25 mcg capsule 0.25 mcg PO QAM 10/10/22 06/17/23 06/17/23 History coenzyme Q10 100 mg capsule 100 mg PO DAILY PRN UNKNOWN 10/10/22 06/17/23 10/09/22 History flash glucose scanning reader #1 ea 02/11/23 06/17/23 Unknown Rx (FreeStyle Mati 2 [place]) flash glucose sensor (FreeStyle #6 ea 02/11/23 06/17/23 Unknown Rx Mati 2 Sensor kit) amiodarone 200 mg tablet (Pacerone) 200 mg PO DAILY 03/07/23 06/17/23 06/17/23 History apixaban 5 mg tablet (Eliquis) 5 mg PO BID #180 tabs 03/07/23 06/17/23 06/17/23 Rx omega-3 fatty acids 1,000 mg 1,000 mg PO BID 03/07/23 06/17/23 06/17/23 History capsule methimazole 10 mg tablet 20 mg PO DAILY #120 tabs 05/15/23 06/17/23 06/17/23 Rx Allergies Allergy/AdvReac Type Severity Reaction Status Date / Time No Known Allergies Allergy Verified 05/15/23 07:49 Current Medications Generic Name Dose Route Start Last Admin Trade Name Freq PRN Reason Stop Dose Admin Diltiazem HCl 100 mg/ Sodium 100 mls @ 0 mls/hr 06/17/23 11:00 06/17/23 13:00 Chloride IV 15 mg/hr .Q0M BEVERLY 15 mls/hr Titration Protocol Per Protocol PFSH Acute PFSH: Medical History Atherosclerosis Atrial fibrillation Atrial fibrillation with rapid ventricular response Atrial flutter Chest pain Chronic atrial fibrillation Chronic kidney disease Creatinine elevation Depressive disorder Elevated troponin I level Essential hypertension Gout Hyperlipidemia NSTEMI (non-ST elevated myocardial infarction) Peripheral neuropathy Troponin level elevated Surgical History H/O knee surgery History of cholecystectomy Hx of CABG S/P hernia surgery Family History Father Myocardial infarct Mother Stroke Other Family history of premature coronary artery disease Social History Smoking and tobacco/nicotine status: former use of tobacco/nicotine Quit status (tobacco/nicotine): has quit using Year quit tobacco: 1971 Former quit date comment: 1ppd x 20 years Vitals/I&O/Wt Last Vital Signs Temp 98.3 F 06/17/23 09:45 Pulse 131 H 06/17/23 14:27 Resp 20 H 06/17/23 12:00 BP 201/155 06/17/23 12:00 Pulse Ox 95 06/17/23 14:27 O2 Del Method Room Air 06/17/23 14:27 06/16/23 06/17/23 06/17/23 22:59 06:59 14:59 Intake Total 1013.667 / 1013.667 Balance 1013.667 / 1013.667 Weight last 48 hrs Weight 225 lb Physical Exam Const: COMMON NORMALS: no acute distress, patient oriented x3 and alert GENERAL APPEARANCE: cooperative, comfortable, well kempt and well hydrated HENMT: COMMON NORMALS: hearing grossly normal bilaterally and external ears normal FACE & SINUS: normal facial exam EXTERNAL EAR: Yes external ears normal Eye: COMMON NORMALS: EOMs intact bilaterally and no scleral icterus GENERAL EYE: appearance normal, both eyes and all related structures ALIGNMENT: Yes alignment normal Neck/C-Spine: COMMON NORMALS: supple and no JVD GENERAL: Yes normal visual inspection CAROTIDS: Yes normal carotid upstroke Chest: COMMONS NORMALS: normal inspection of the chest and normal palpation of entire chest wall CHEST: Yes Symmetrical chest wall rise and No tenderness Resp: COMMON NORMALS: clear to auscultation bilaterally EFFORT & INSPECTION: Yes able to speak in complete sentences, No tachypneic, No respiratory distress, No pursed lip breathing, No labored and No Actively coughing AUSCULTATION: clear to auscultation bilaterally, no crackles, no rales, no rhonchi and no wheezes Cardio: COMMON NORMALS: no JVD, regular rate, regular rhythm, S1 normal heart sound present, S2 normal heart sound present and Peripheral pulses 2+ throughout PALPATION: normal PMI RATE: regular rate RHYTHM: regular rhythm HEART SOUNDS: S1 normal heart sound present, S2 normal heart sound present, no click, no gallops and no murmurs BRUITS: no carotid bruits PERIPHERAL PULSES: Peripheral pulses 2+ throughout, radial pulses present, posterior tibial pulses present and dorsalis pedis present GI: COMMON NORMALS: Soft to palpation AUSCULTATION: Yes normoactive bowel sounds PALPATION: Yes Soft to palpation, No Tenderness to palpation present (GI), No Guarding due to palpation present (GI) and No Rigid due to palpation Extremity: GENERAL: No cyanosis, No edema and No pallor Neuro: COMMON NORMALS: patient oriented x3 and no focal motor deficits SENSORIUM/ORIENTATION: Yes alert Psych: COMMON NORMALS: Normal thought process present and speech normal APPEARANCE: Yes well kempt SPEECH: Yes normal speech MOOD & AFFECT: Yes euthymic mood THOUGHT PROCESS: Normal thought process present THOUGHT CONT ENT: Yes Normal thought content present Data 06/17/23 09:55 06/17/23 09:55 Other data: Thyroid ultrasound (11/13/22) IMPRESSION:? 1.? Enlarged nodular thyroid gland. Most significant enlargement throughout the RIGHT thyroid. Very similar ultrasound appearance as compared to 06/11/2019 of the enlarged thyroid. Also, recent PET/CT was negative involving the thyroid. 2.? Most likely multinodular goiter. Date of Service: 08/01/22 Procedure(s): Sestamibi Stress Test Request CONCLUSION: 1. No significant EKG changes with the] LexiScan infusion. 2. No LexiScan induced chest pain or cardiac arrhythmia. 3. Normal blood pressure and heart rate response. 4. Sestamibi/sestamibi perfusion scan pending; see separate report. Electronically Signed On 08-02-2022 11:18:26 CLINICAL INSTRUCTOR by Glory Gallo M.D. Date of Service: 08/01/22 Procedure(s): NM sachin perf SPECT r/s* [id number] ?IMPRESSIONS ?1. Myocardial perfusion imaging is normal.? Attenuation artifact in?anterolateral and apical segments. ?2. Overall left ventricular systolic function is normal without regional wall?motion abnormalities, LVEF=72%. ?3. EKG portion of the study will be reported separately. ?4. No coronary ischemia based on this study. ?Glory Gallo MD? ?(Electronically Signed) Date of Service: 07/21/22 Procedure(s): CV. echo complete* [id number] ?CONCLUSIONS ?Technically limited quality echocardiogram because of poor?ultrasonic windows. ?LV systolic function is grossly normal ?Left atrium is dilated ?Mitral valve is thickened.? Mild mitral regurgitation ?Trace tricuspid regurgitation ?Mild pulmonic regurgitation ?Compared to prior echocardiogram from 04/2019, no significant?changes are seen ?Royer Dennison MD? ?(Electronically Signed) A&P Assessment and plan (1) Atrial flutter: Paroxysmal atrial flutter with RVR start on PO cardizem and uptitrate metoprolol -will d/c amiodarone -continue with rate control. 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
[2023-06-17 15:39] LABS: Add Urine Microscopic? YES; Bilirubin Urine Neg (Negative); Blood Urine Neg (Negative); Glucose Urine UA Norm (Normal); Ketones Urine 1+ (Negative); Leukocyte Esterase Urine Trace (Negative); Nitrate Urine Negative (Negative); Protein Urine Neg (Negative); Specific Gravity, Urine 1.015 (1.005-1.030); Urine Appearance Clear (CLEAR); Urine Color Straw (Yellow); Urobilinogen Urine Norm (Negative); pH Urine 5 (5-7)
[2023-06-17 15:40] LABS: Add Urine Culture? No; Bacteria Urine TRACE /hpf; WBC Urine 0-4 /hpf (0-5)
[2023-06-17 16:46] LABS: Troponin 5 6HR 64.83 ng/L (0-15)
[2023-06-17 18:18] LABS: Glucose Point of Care 170 mg/dL (70-110)
[2023-06-17] MEDS: tamsulosin 0.4 mg Capsule PO (18:31)
[2023-06-17] MEDS: gabapentin 300 mg Capsule 600 MG PO (18:31)
[2023-06-17] MEDS: apixaban 5 mg Tablet PO (18:31)
[2023-06-17] MEDS: docusate sodium 100 mg Capsule 200 MG PO (18:31)
[2023-06-17] MEDS: dilTIAZem 100 MG in sodium chloride 0.9% (add-van) 100 ML 12 MG IV (19:25)
[2023-06-17 21:57] LABS: Glucose Point of Care 183 mg/dL (70-110)
[2023-06-17] MEDS: dilTIAZem ER (24HR) 120 mg Capsule PO (21:59)
[2023-06-17] MEDS: insulin glargine 100 units/1 mL 20 UNIT SUBCUT (22:05)
[2023-06-17] MEDS: insulin lispro 100 unit/1 mL SUBCUT (22:05)
[2023-06-18] VITALS (31 sets, daily range): BP systolic 98–137; BP diastolic 58–101; PULSE 69–126; RESP 15–22; TEMP 36.4–37.1; O2SAT 90–96
[2023-06-18] MEDS: dilTIAZem 100 MG in sodium chloride 0.9% (add-van) 100 ML 10 MG IV (04:47)
[2023-06-18 05:05] LABS: Basophils # 0.1 10^3/uL (0.0-0.1); Basophils % 0.6 %; Eosinophils # 0.3 10^3/uL (0.0-0.8); Eosinophils % 3.1 %; Hematocrit 39.1 % (37-53); Lymphocytes # 1.7 10^3/uL (0.8-4.8); Lymphocytes % 20.7 %; Mean Corpuscular Hemoglobin 29.1 pg (27-33); Mean Corpuscular Volume 90.9 fl (82-101); Mean Platelet Volume 10.3 fL (7.4-10.4); Monocytes # 0.8 10^3/uL (0.2-0.9); Monocytes % 9.5 %; Neutrophils # 5.54 10^3/uL (1.8-7.7); Neutrophils % 65.7 %; Nucleated Red Blood Cells % 0 %; Platelet Count 189 10^3/cmm (157-399); Red Cell Distribution Width 13.4 % (12.1-15.1); White Blood Count 8.42 10^3/uL (3.29-11.43)
[2023-06-18 05:29] LABS: Alanine Aminotransferase 16 U/L (0-41); Albumin Level 3.9 g/dL (3.5-5.2); Alkaline Phosphatase 119 U/L (40-130); Anion Gap 16.2 (5-19); Aspartate Amino Transferase 15 U/L (0-40); Blood Urea Nitrogen 35 mg/dL (8-23); Carbon Dioxide 24 mmol/L (22-29); Chloride 102 mmol/L (98-107); Glucose 106 mg/dL (65-115); Magnesium 1.7 mg/dL (1.7-2.3); Osmolality Calculated 294 mOsm/kg (285-295); Potassium 4.2 mmol/L (3.5-5.1); Sodium 138 mmol/L (136-145); Total Bilirubin 0.5 mg/dL (0.15-1.2); Total Protein 6.9 g/dL (6.6-8.7)
[2023-06-18 06:33] LABS: Glucose Point of Care 113 mg/dL (70-110)
[2023-06-18] MEDS: metoprolol tartrate 25 mg Tablet PO (07:49)
[2023-06-18] MEDS: apixaban 5 mg Tablet PO ×2 (07:49→17:53)
[2023-06-18] MEDS: gabapentin 300 mg Capsule 600 MG PO ×2 (07:50→17:52)
[2023-06-18] MEDS: aspirin 81 mg EC Tablet PO (07:50)
--- NOTE | 2023-06-18 08:07 | PM.PN ---
Documented by User: Jeimy Allred 06/18/23 08:24 Subjective Subjective: Today, pt reports feeling minimal change in symptoms from yesterday. He is still without any chest pain or shortness of breath. Despite the monitor showing tachycardia and irregular rhythm, the pt denies feeling any chest palpitations. He denies any abdominal discomfort. He has no concerns at this time. All other ROS negative. Vitals/I&O/Wt Last Vital Signs Temp 98.3 F 06/18/23 07:55 Pulse 109 H 06/18/23 08:00 Resp 18 06/18/23 07:55 BP 116/70 06/18/23 07:55 Pulse Ox 95 06/18/23 07:55 O2 Del Method Room Air 06/18/23 07:55 06/17/23 06/18/23 06/18/23 22:59 06:59 14:59 Intake Total 135.308 / 1148.975 436.334 / 1585.309 Balance 135.308 / 1148.975 436.334 / 1585.309 Weight last 48 hrs Weight 102.058 kg Physical Exam Narrative: General: alert, conversant male laying comfortably in bed. He was receiving a Diltiazem drip during encounter. Neck: supple. Cardiac: tachycardic, irregular rhythm. No murmurs appreciated. Lungs: clear to auscultation bilaterally. Abdomen: normoactive bowel sounds in all 4 quadrants, no obvious organomegaly. Extremities: 2+ pulses in upper and lower extremities. No edema, cyanosis. Data 06/18/23 04:49 06/18/23 04:49 Other Labs: Troponin 6 hr 64.83, delta 19.17 Magnesium normal LFTs normal Protein, albumin normal A&P Assessment and plan (1) Atrial flutter: Cardiology was consulted yesterday and medications altered based on cardiology advice. Taper diltiazem drip, start PO diltiazem at night. Begin 25 metoprolol this morning, with second dose of 25 thirty minutes-1 hr later so that pt can take recommended dose of 50 mg BID. Continue Eliquis. Amiodarone was discontinued. Continue methimazole treatment for hyperthyroidism. Magnesium levels normal. CBC, BMP daily. (2) Hyperthyroidism: Pt was recently found to have hyperthyroidism and was started on methimazole. Pt was found to have labs consistent with hyperthyroidism yesterday. Continue methimazole. Amiodarone was discontinued as a potential contributer to hyperthyroidism development. (3) Type 2 diabetes mellitus: Start sliding scale insulin. Continue long-acting insulin but at reduced amounts secondary to hospitalization as well as acute kidney injury. (4) FABI (acute kidney injury): Pt has CKD that has now been complicated by an acute injury as renal labs have worsened. Hold any medications that may contribute to FABI. BUN and Cr still above pt's normal baseline, but they have improved since yesterday. Repeat BMP tomorrow and daily Plan Multiple other medical problems as documented in the past medical history Eliquis will suffice for DVT prophylaxis. Full code currently Coding Level of Care Code 44514 Diagnoses Atrial flutter I48.92 Hyperthyroidism E05.90 Type 2 diabetes mellitus E11.9 FABI (acute kidney injury) N17.9 Time Spent (min) 23 Documented by User: Wes Snowden MD 06/18/23 08:53 Subjective Subjective: Today, pt reports feeling minimal change in symptoms from yesterday. He is still without any chest pain or shortness of breath. Despite the monitor showing tachycardia and irregular rhythm, the pt denies feeling any chest palpitations. He denies any abdominal discomfort. He has no concerns at this time. All other ROS negative. Patient was seen in tandem with medical student, and this note was created under my direct supervision and input. Medications: Reviewed: Yes Physical Exam Narrative: General: alert, conversant male laying comfortably in bed. He was receiving a Diltiazem drip during encounter. Neck: supple. Cardiac: tachycardic, irregular, irregular rhythm. No murmurs appreciated. Lungs: clear to auscultation bilaterally. Abdomen: normoactive bowel sounds in all 4 quadrants, no obvious organomegaly. Extremities: 2+ pulses in upper and lower extremities. No edema, cyanosis. Data 06/18/23 04:49 06/18/23 04:49 A&P Assessment and plan (1) Atrial flutter: Cardiology was consulted yesterday and medications altered based on cardiology advice. Taper diltiazem drip, start PO diltiazem at night. Begin 25 metoprolol this morning, with second dose of 25 thirty minutes-1 hr later so that pt can take recommended dose of 50 mg BID. It appears that the patient did not receive any metoprolol yesterday, nursing notes writing it was not indicated. Continue Eliquis. Amiodarone was discontinued. Continue methimazole treatment for hyperthyroidism. Thyroid studies still consistent with hypothyroidism Magnesium levels normal. CBC, BMP daily. (2) Hyperthyroidism: Pt was recently found to have hyperthyroidism and was started on methimazole. Pt was found to have labs consistent with hyperthyroidism yesterday. Continue methimazole. Amiodarone was discontinued as a potential contributer (3) Type 2 diabetes mellitus: (4) FABI (acute kidney injury): Attestations Medical Necessity Statement*: Needs continued hospital stay, for adjustment of medications for atrial fibrillation rapid ventricular rate. Overall slow improvement. Still requiring Cardizem IV at this time. Diagnoses Atrial flutter I48.92 Hyperthyroidism E05.90 Type 2 diabetes mellitus E11.9 FABI (acute kidney injury) N17.9 Time Spent (min) 23
--- NOTE | 2023-06-18 09:26 | PC.CHAP ---
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 flat examiner visit [] Patient/Family/Request visit [] Outpatient visit [] Follow-up visit [] Physician referral [] Code/Alert [x] Routine visit [] Staff referral [] Actively dying [] Patient sleeping [x] Family support [] [] Out of room [] Palliative care [] [] Receiving care in room [] Pre-surgical visit [] Trauma [] Long length of stay [] ICU visit [] Other: Relational/Emotional Strength [x] Patient feels connected with others/family/visitors/staff [] Distress [] Loneliness/isolation [] Abandonment Spirituality of Patient [x] Person of Lizbeth [] Attends Scientology of their Lizbeth [x] Believes in Prayer [] Reads Bible or Taoism materials [] There are Spiritual issues to be addressed 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 Interventions [x] Prayer [x] Active listening [] Non-anxious presence [x] Spiritual/emotional support [] Crisis/trauma care [] Spiritual counseling [] Bereavement support [] Provided bereavement packet [] Provided Bible/devotional materials [] Provided toy/stuffed animal, coloring book to patient or family member [] Provided Communion [] Anointing/[place] [] Salvation [x] Completed spiritual assessment [] Other: Impact on Illness or Injury [] Angry [] Fearful [] Anxious [] Often cries [] Exhaustion [] Unable to work [] Unable to attend confucianism [] Unable to walk/stand [] Unable to read [] Unable to drive [] Unable to eat/drink [] Unable to sleep [] Unable to be with family [] Patient intubated [] Other: Summary Time spent with patient 5 min
[2023-06-18] MEDS: allopurinol 100 mg Tablet 150 MG PO (09:44)
[2023-06-18] MEDS: PARoxetine 20 mg Tablet 40 MG PO (09:44)
[2023-06-18] MEDS: ezetimibe 10 mg Tablet PO (09:44)
[2023-06-18] MEDS: docusate sodium 100 mg Capsule 200 MG PO ×2 (09:45→17:53)
[2023-06-18] MEDS: atorvastatin 40 mg Tablet 80 MG PO (09:45)
[2023-06-18] MEDS: methIMAzole 5 MG Tablet 20 MG PO (12:19)
[2023-06-18 12:57] LABS: Glucose Point of Care 231 mg/dL (70-110)
[2023-06-18] MEDS: insulin lispro 100 unit/1 mL SUBCUT ×2 (13:13→21:52)
--- NOTE | 2023-06-18 16:33 | PM.PN ---
Subjective Subjective: doing well. BP low this morning Medications: Reviewed: Yes Vitals/I&O/Wt Last Vital Signs Temp 98.7 F 06/18/23 12:38 Pulse 78 06/18/23 14:00 Resp 18 06/18/23 12:38 BP 104/65 06/18/23 12:38 Pulse Ox 94 06/18/23 12:38 O2 Del Method Room Air 06/18/23 12:38 06/18/23 06/18/23 06/18/23 06:59 14:59 22:59 Intake Total 436.334 / 1585.309 503.5 / 503.5 Balance 436.334 / 1585.309 503.5 / 503.5 Weight last 48 hrs Weight 225 lb Physical Exam Const: COMMON NORMALS: no acute distress, patient oriented x3 and alert GENERAL APPEARANCE: cooperative, comfortable, well kempt and well hydrated HENMT: COMMON NORMALS: hearing grossly normal bilaterally and external ears normal FACE & SINUS: normal facial exam EXTERNAL EAR: Yes external ears normal Eye: COMMON NORMALS: EOMs intact bilaterally and no scleral icterus GENERAL EYE: appearance normal, both eyes and all related structures ALIGNMENT: Yes alignment normal Neck/C-Spine: COMMON NORMALS: supple and no JVD GENERAL: Yes normal visual inspection CAROTIDS: Yes normal carotid upstroke Chest: COMMONS NORMALS: normal inspection of the chest and normal palpation of entire chest wall CHEST: Yes Symmetrical chest wall rise and No tenderness Resp: COMMON NORMALS: clear to auscultation bilaterally EFFORT & INSPECTION: Yes able to speak in complete sentences AUSCULTATION: clear to auscultation bilaterally, no crackles, no rales, no rhonchi and no wheezes Cardio: COMMON NORMALS: no JVD, regular rate, regular rhythm, S1 normal heart sound present, S2 normal heart sound present and Peripheral pulses 2+ throughout PALPATION: normal PMI RATE: regular rate RHYTHM: regular rhythm HEART SOUNDS: S1 normal heart sound present, S2 normal heart sound present and no murmurs BRUITS: no carotid bruits PERIPHERAL PULSES: Peripheral pulses 2+ throughout, radial pulses present, posterior tibial pulses present and dorsalis pedis present GI: COMMON NORMALS: Soft to palpation AUSCULTATION: Yes normoactive bowel sounds PALPATION: Yes Soft to palpation, No Tenderness to palpation present (GI), No Guarding due to palpation present (GI) and No Rigid due to palpation Extremity: GENERAL: No cyanosis, No edema and No pallor Neuro: COMMON NORMALS: patient oriented x3 and no focal motor deficits SENSORIUM/ORIENTATION: Yes alert Psych: COMMON NORMALS: Normal thought process present and speech normal APPEARANCE: Yes well kempt SPEECH: Yes normal speech MOOD & AFFECT: Yes euthymic mood THOUGHT PROCESS: Normal thought process present THOUGHT CONTENT: Yes Normal thought content present Data 06/18/23 04:49 06/18/23 04:49 A&P Assessment and plan (1) Atrial flutter: Paroxysmal atrial flutter with RVR on PO cardizem and metoprolol -off amiodarone -continue with rate control. 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
[2023-06-18 17:42] LABS: Glucose Point of Care 98 mg/dL (70-110)
[2023-06-18] MEDS: tamsulosin 0.4 mg Capsule PO (17:53)
[2023-06-18] MEDS: metoprolol tartrate 25 mg Tablet 37.5 MG PO (17:53)
[2023-06-18 20:19] LABS: Glucose Point of Care 241 mg/dL (70-110)
[2023-06-18] MEDS: insulin glargine 100 units/1 mL 20 UNIT SUBCUT (21:52)
[2023-06-18] MEDS: dilTIAZem ER (24HR) 120 mg Capsule PO (21:53)
[2023-06-18] MEDS: guaiFENesin 600 mg Tablet PO (23:17)
[2023-06-19] VITALS (29 sets, daily range): BP systolic 83–139; BP diastolic 31–107; PULSE 80–129; RESP 14–27; TEMP 36.9–37.1; O2SAT 94–98
--- NOTE | 2023-06-19 01:40 | PC.NURSE ---
Patient stated he would like something to help with sinus drainage, Dr kapadia notified and gave telephone order for Mucinex 400mg BID. Order entered. Medication administered. Patient resting comfortable in bed with call chambers in reach.
[2023-06-19 04:21] LABS: Basophils # 0.1 10^3/uL (0.0-0.1); Basophils % 0.7 %; Eosinophils # 0.3 10^3/uL (0.0-0.8); Eosinophils % 3.1 %; Hematocrit 37.7 % (37-53); Lymphocytes # 1.9 10^3/uL (0.8-4.8); Lymphocytes % 19.3 %; Mean Corpuscular HGB Conc 30.8 g/dL (30-55); Mean Corpuscular Hemoglobin 29.1 pg (27-33); Mean Corpuscular Volume 94.5 fl (82-101); Mean Platelet Volume 10.8 fL (7.4-10.4); Monocytes # 0.9 10^3/uL (0.2-0.9); Monocytes % 9.3 %; Neutrophils # 6.52 10^3/uL (1.8-7.7); Neutrophils % 67.1 %; Nucleated Red Blood Cells % 0 %; Platelet Count 180 10^3/cmm (157-399); Red Blood Count 3.99 10^6/uL (3.85-5.65); Red Cell Distribution Width 13.5 % (12.1-15.1); White Blood Count 9.72 10^3/uL (3.29-11.43)
[2023-06-19 04:45] LABS: Blood Urea Nitrogen 44 mg/dL (8-23); Calcium 8.7 mg/dL (8.5-10.5); Carbon Dioxide 20 mmol/L (22-29); Chloride 102 mmol/L (98-107); Glucose 143 mg/dL (65-115); Osmolality Calculated 296 mOsm/kg (285-295); Sodium 136 mmol/L (136-145)
[2023-06-19 04:50] LABS: Anion Gap 18.8 (5-19); Potassium 4.8 mmol/L (3.5-5.1)
[2023-06-19 07:19] LABS: Glucose Point of Care 131 mg/dL (70-110)
--- NOTE | 2023-06-19 07:20 | US_ITS ---
WS: [id number] RENAL ULTRASOUND HISTORY: renal failure COMPARISON: 09/03/2019 TECHNIQUE: 2-D and color Doppler imaging of the kidney submitted. Right kidney: 12.2 cm x 5.5 cm x 5.4 cm. Cortex: 1.5 cm Normal size kidney. Very slight lobulation of the renal cortex but no mass. No hydronephrosis. Left kidney: 13.7 cm x 7.3 cm x 4.9 cm. Cortex: 1.3 cm Normal echogenicity with no hydronephrosis or mass. Aorta: Not visualized. Urinary Bladder: Minimally distended bladder with diffuse wall thickening. Prostate gland is enlarged . Prostate is heterogeneous measuring 4.2 x 4.8 x 3.3 cm. IMPRESSION: Normal renal ultrasound.
[2023-06-19] MEDS: lactated ringers 500 ML 999 ML IV (07:55)
[2023-06-19] MEDS: sodium chloride 0.9% 1,000 ML 75 ML IV (07:55)
--- NOTE | 2023-06-19 09:00 | P.PN_ITS ---
Subjective Medications: Reviewed: Yes Vitals/I&O/Wt Last Vital Signs Temp 98.4 F 06/19/23 05:20 Pulse 85 06/19/23 06:00 Resp 19 H 06/19/23 05:20 BP 110/60 06/19/23 05:23 Pulse Ox 94 06/19/23 05:20 O2 Del Method Room Air 06/18/23 17:30 06/18/23 06/19/23 06/19/23 22:59 06:59 14:59 Intake Total 340 / 843.5 140 / 983.5 Balance 340 / 843.5 140 / 983.5 Weight last 48 hrs Weight 225 lb Physical Exam Const: COMMON NORMALS: no acute distress, patient oriented x3 and alert GENERAL APPEARANCE: cooperative, comfortable, well kempt and well hydrated HENMT: COMMON NORMALS: hearing grossly normal bilaterally and external ears normal FACE & SINUS: normal facial exam EXTERNAL EAR: Yes external ears normal Eye: COMMON NORMALS: EOMs intact bilaterally and no scleral icterus GENERAL EYE: appearance normal, both eyes and all related structures ALIGNMENT: Yes alignment normal Neck/C-Spine: COMMON NORMALS: supple and no JVD GENERAL: Yes normal visual inspection CAROTIDS: Yes normal carotid upstroke Chest: COMMONS NORMALS: normal inspection of the chest and normal palpation of entire chest wall CHEST: Yes Symmetrical chest wall rise and No tenderness Resp: COMMON NORMALS: clear to auscultation bilaterally EFFORT & INSPECTION: Yes able to speak in complete sentences, No tachypneic, No respiratory distress, No pursed lip breathing, No labored and No Actively coughing AUSCULTATION: clear to auscultation bilaterally, no crackles, no rales, no rhonchi and no wheezes Cardio: COMMON NORMALS: no JVD, regular rate, regular rhythm, S1 normal heart sound present, S2 normal heart sound present and Peripheral pulses 2+ throughout PALPATION: normal PMI RATE: regular rate RHYTHM: regular rhythm HEART SOUNDS: S1 normal heart sound present, S2 normal heart sound present, no click, no gallops and no murmurs BRUITS: no carotid bruits PERIPHERAL PUL SES: Peripheral pulses 2+ throughout, radial pulses present, posterior tibial pulses present and dorsalis pedis present GI: COMMON NORMALS: Soft to palpation AUSCULTATION: Yes normoactive bowel sounds PALPATION: Yes Soft to palpation, No Tenderness to palpation present (GI), No Guarding due to palpation present (GI) and No Rigid due to palpation Extremity: GENERAL: No cyanosis, No edema and No pallor Neuro: COMMON NORMALS: patient oriented x3 and no focal motor deficits SENSORIUM/ORIENTATION: Yes alert Psych: COMMON NORMALS: Normal thought process present and speech normal APPEARANCE: Yes well kempt SPEECH: Yes normal speech MOOD & AFFECT: Yes euthymic mood THOUGHT PROCESS: Normal thought process present THOUGHT CONTENT: Yes Normal thought content present Data 06/19/23 03:59 06/19/23 13:45 A&P Assessment and plan (1) Atrial flutter: Paroxysmal atrial flutter with RVR on PO cardizem and metoprolol -off amiodarone -continue with rate control. 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 fib management Coding Level of Care Code Acute Code for [facility] Fwd Diagnoses Atrial flutter I48.92 Hyperthyroidism E05.90 FABI (acute kidney injury) N17.9 Hyperlipidemia E78.5
[2023-06-19] MEDS: guaiFENesin 600 mg Tablet PO ×2 (09:29→17:41)
[2023-06-19] MEDS: atorvastatin 40 mg Tablet 80 MG PO (09:30)
[2023-06-19] MEDS: methIMAzole 5 MG Tablet 20 MG PO (09:30)
[2023-06-19] MEDS: gabapentin 300 mg Capsule 600 MG PO ×2 (09:31→17:41)
[2023-06-19] MEDS: PARoxetine 20 mg Tablet 40 MG PO (09:31)
[2023-06-19] MEDS: allopurinol 100 mg Tablet 150 MG PO (09:31)
[2023-06-19] MEDS: aspirin 81 mg EC Tablet PO (09:32)
[2023-06-19] MEDS: ezetimibe 10 mg Tablet PO (09:32)
[2023-06-19] MEDS: docusate sodium 100 mg Capsule 200 MG PO ×2 (09:32→17:41)
[2023-06-19] MEDS: apixaban 5 mg Tablet PO ×2 (09:32→17:41)
[2023-06-19] MEDS: metoprolol tartrate 25 mg Tablet PO ×3 (10:17→20:53)
[2023-06-19 11:37] LABS: Glucose Point of Care 192 mg/dL (70-110)
[2023-06-19] MEDS: insulin lispro 100 unit/1 mL SUBCUT ×3 (13:02→21:02)
[2023-06-19 14:22] LABS: Anion Gap 13.9 (5-19); Blood Urea Nitrogen 47 mg/dL (8-23); Calcium 8.5 mg/dL (8.5-10.5); Carbon Dioxide 24 mmol/L (22-29); Chloride 100 mmol/L (98-107); Glucose 212 mg/dL (65-115); Osmolality Calculated 295 mOsm/kg (285-295); Potassium 4.9 mmol/L (3.5-5.1); Sodium 133 mmol/L (136-145)
--- NOTE | 2023-06-19 14:26 | PC.NURSE ---
pt educated and instructed to use the urinal for a measurement on his output.
--- NOTE | 2023-06-19 14:51 | P.PN_ITS ---
Subjective Subjective: Jonathan feels little short of breath when he gets up and around. His heart rate was 120 when I saw him, after getting up to the bathroom. It drifted down to around 100-105 resting. He reports he has been urinating. We discussed his renal ultrasound. Medications: Reviewed: Yes Vitals/I&O/Wt Last Vital Signs Temp 98.7 F 06/19/23 08:30 Pulse 112 H 06/19/23 12:00 Resp 19 H 06/19/23 12:00 BP 126/76 06/19/23 12:00 Pulse Ox 94 06/19/23 05:20 O2 Del Method Room Air 06/18/23 17:30 06/18/23 06/19/23 06/19/23 22:59 06:59 14:59 Intake Total 340 / 843.5 140 / 983.5 860 / 860 Balance 340 / 843.5 140 / 983.5 860 / 860 Physical Exam Narrative: General: No distress Neck: supple. Cardiac: tachycardic, irregular, irregular rhythm. No murmurs appreciated. Overall rate improved Lungs: clear to auscultation bilaterally. Abdomen: normoactive bowel sounds in all 4 quadrants, no obvious organomegaly. Extremities: 2+ pulses in upper and lower extremities. No edema, cyanosis. Data 06/19/23 03:59 06/19/23 13:45 A&P Assessment and plan (1) Atrial flutter: Cardiology consultation appreciated Metoprolol increased to 50 mg 3 times daily Amiodarone was discontinued. Continue methimazole treatment for hyperthyroidism. Thyroid studies still consistent with hypothyroidism Magnesium levels normal. Concerned regarding worsening renal function from yesterday CBC, BMP daily. (2) Hyperthyroidism: Pt was recently found to have hyperthyroidism and was started on methimazole. Pt was found to have labs consistent with hyperthyroidism yesterday. Continue methimazole. Amiodarone was discontinued as a potential contributer (3) Type 2 diabetes mellitus: Start sliding scale insulin. Continue long-acting insulin but at reduced amounts secondary to hospitalization as well as acute kidney injury. (4) FABI (acute kidney injury): Pt has CKD that has now been complicated by an acute injury as renal labs have worsened. Renal function has worsened since yesterday. Bolus given to the patient for hypotension which could have contributed, and IV fluids initiated. Patient repo rts he has not been drinking as much fluid here in the hospital. Renal toxic medication has been held. Medicine list reviewed again. Renal ultrasound has been performed which demonstrates no significant obstruction. Mild bladder distention. Patient is already on Flomax. Plan Multiple other medical problems as documented in the past medical history Eliquis will suffice for DVT prophylaxis. Full code currently Has significant acute kidney injury, and ultrasound was performed today. We will need to repeat BMP tomorrow, to monitor for worsening renal function. Renal failure is a serious exacerbation of chronic health illness, for which he is receiving IV fluids and daily monitoring with laboratory to make sure renal function improves. Attestations Medical Necessity Statement*: Needs continued hospital stay secondary to worsening renal function. Diagnoses Atrial flutter I48.92 Hyperthyroidism E05.90 Type 2 diabetes mellitus E11.9 FABI (acute kidney injury) N17.9 Time Spent (min) 24
[2023-06-19] MEDS: tamsulosin 0.4 mg Capsule PO (17:41)
--- NOTE | 2023-06-19 18:16 | XRR_ITS ---
PROCEDURE INFORMATION: Exam: XR Chest Exam date and time: 06/19/2023 7:03 PM Age: 73 years old Clinical indication: Condition or disease; Other: Irregular heart beat; Prior surgery; Surgery date: 6+ months; Surgery type: Open heart; Additional info: SOB TECHNIQUE: Imaging protocol: Radiologic exam of the chest. Views: 1 view. COMPARISON: CR XR chest 1V portable [id number] 06/17/2023 9:55 AM FINDINGS: Lungs: Left mid to lower lung field atelectasis versus infiltrate with a small left pleural effusion. Pleural spaces: See Lungs finding. Heart/Mediastinum: Cardiomegaly. Bones/joints: Sternotomy wires. XR/XR chest 1V portable [id number] IMPRESSION: 1. Left mid to lower lung field atelectasis versus infiltrate with a small left pleural effusion. 2. Cardiomegaly. 3. Sternotomy wires.
--- NOTE | 2023-06-19 18:18 | PC.NURSE ---
Pt develop shortness of breath and afib w/rvr rate in upper 110s to 120s. Pt stated he is short of breath, sounded wheezy and right lower lobe has fine crackle. BP-114/89. spo2-90-92%, administer 2L NC. notified systems specialist via telephone, received orders to give 20 mg IVP Lasix and portable chest xray stat.
--- NOTE | 2023-06-19 18:34 | PC.NURSE ---
Notified hospitalist on pt's sob and rapid HR, crackles and wheezing, dc iv fluid. pt stated he finished a 1800 ml of oral fluid as instructed this morning for his kidney function. pt and dgtr notified on our treatment plan for this evening.
[2023-06-19] MEDS: FUROsemide 10 mg/mL SDV 2mL 20 MG IVP (18:42)
[2023-06-19] MEDS: dilTIAZem ER (12HR) 60 mg Capsule PO (20:53)
[2023-06-19] MEDS: insulin glargine 100 units/1 mL 20 UNIT SUBCUT (21:02)
[2023-06-19 21:23] LABS: Glucose Point of Care 220 mg/dL (70-110)
[2023-06-19 21:23] LABS: Glucose Point of Care 175 mg/dL (70-110)
[2023-06-20] VITALS (16 sets, daily range): BP systolic 96–131; BP diastolic 64–96; PULSE 87–135; RESP 16–25; TEMP 36.7–37.3; O2SAT 95–97
[2023-06-20 04:36] LABS: Blood Urea Nitrogen 51 mg/dL (8-23); Calcium 8.7 mg/dL (8.5-10.5); Carbon Dioxide 23 mmol/L (22-29); Chloride 101 mmol/L (98-107); Glucose 133 mg/dL (65-115); Osmolality Calculated 294 mOsm/kg (285-295); Sodium 134 mmol/L (136-145)
[2023-06-20 06:34] LABS: Glucose Point of Care 125 mg/dL (70-110)
--- NOTE | 2023-06-20 07:27 | USCV_ITS ---
RenaJonathan vogel Age: 73 Gender: M : 1950 Exam Date: 06/20/2023 14:31 Ordering Phys: Wes Snowden MD Technologist: Gurdeep Garcia Exam Location: [facility] – [place] Indication: chf BP: 125 / 83 HR: 80 Rhythm: Sinus Technical Quality: Adequate MEASUREMENTS (Male / Female) Normal Values 2D ECHO LV Diastolic Diameter PLAX 4.3 cm 4.2 - 5.9 / 3.9 - 5.3 cm LV Systolic Diameter PLAX 3.1 cm IVS Diastolic Thickness 1.3 cm 0.6 - 1.0 / 0.6 - 0.9 cm IVS Systolic Thickness 1.7 cm LVPW Diastolic Thickness 1.1 cm 0.6 - 1.0 / 0.6 - 0.9 cm LVPW Systolic Thickness 1.7 cm LVOT Diameter 2.0 cm LV Ejection Fraction 2D Teich 56.3 % LV Ejection Fraction MOD 2C 45.9 % LV Ejection Fraction 2C AL 46.2 % LA Diameter 4.9 cm M-MODE Aortic Annulus Diameter 2.3 cm LA Ao Ratio MM 2.3 MV E Point Septal Separation 0.6 cm DOPPLER AV Peak Velocity 124.0 cm/s LVOT Peak Velocity 101.0 cm/s AV Area Cont Eq vti 3.2 cm squared AV Area Cont Eq pk 2.6 cm squared MV Area PHT 5.0 cm squared Mitral E to A Ratio 1.1 MV E' Velocity 84.5 cm/s Mitral E to MV E' Ratio 15.3 Mitral E to LV E' Lateral Ratio 15.8 Mitral E to LV E' Septal Ratio 15.0 TR Peak Velocity 270.0 cm/s TR Peak Gradient 29.2 mmHg TV Peak E Velocity 103.0 cm/s Right Atrial Pressure 3.0 mmHg Pulmonary Artery Systolic Pressu 32.2 mmHg RV Acceleration Time 0.1 s FINDINGS Left Ventricle Left ventricle is normal in size. LV systolic function is mildly reduced with EF of 45 to 50%. Mild global hypokinesis. Right Ventricle Grossly normal Right Atrium Not well visualized Left Atrium Grossly normal Mitral Valve Moderate mitral calcification seen. Mild mitral regurgitation. Aortic Valve Aortic valve is thickened and calcified. Tricuspid Valve Mild tricuspid regurgitation. RVSP is 35 to 40 mmHg. This is consistent with mild pulmonary hypertension Pulmonic Valve Not well-visualized Pericardium Normal Aorta Normal in size IVC Not well visualized CONCLUSIONS Technically limited quality echocardiogram because of poor ultrasonic windows. LV systolic function is mildly reduced with EF of 45-50%. Mild global hypokinesis Mild mitral regurgitation Mild tricuspid regurgitation Mild pulmonary hypertension Compared to prior echocardiogram from 2021, LV systolic is mildly reduced now. Royer Dennison MD (Electronically Signed) Final Date: 20 June 2023 16:41 S
--- NOTE | 2023-06-20 08:59 | P.PN_ITS ---
Documented by User: Jeimy Allred 06/20/23 09:18 Subjective Subjective: Pt's main concern today is shortness of breath. He became short of breath yesterday evening, and there was concern he was becoming volume overloaded, so he was given one dose of furosemide 20 via IV. Pt states he has had increased urination since then. He was also started on oxygen via nasal canulla overnight. While trying to change his clothes this morning, he became very short of breath, but he says he denies it when he is rested. He is without chest pain, cough, and denies experiencing palpitations despite his what his security monitor shows. He has no other concerns at this time. Vitals/I&O/Wt Last Vital Signs Temp 98.4 F 06/20/23 08:00 Pulse 135 H 06/20/23 08:00 Resp 18 06/20/23 06:00 BP 100/70 06/20/23 08:00 Pulse Ox 97 06/20/23 08:00 O2 Del Method Nasal Cannula 06/20/23 08:00 O2 Flow Rate 2 06/20/23 06:00 06/19/23 06/20/23 06/20/23 22:59 06:59 14:59 Intake Total 2800.00 / 3660.00 200 / 3860.00 360 / 360 Output Total 650 / 950 400 / 1350 Balance 2150.00 / 2710.00 -200 / 2510.00 360 / 360 Physical Exam Narrative: General: alert, cooperative, conversant pt on 2L of O2 via nasal canulla. Neck: supple, no thyromegly. Cardiac: tachycardic, irregularly irregular rhythm. No murmurs appreciated. Respiratory: end-expiratory wheezes present bilaterally at lung bases. Abdomen: no tenderness to palpation, normoactive bowel sounds in all four qu adrants. Extremities: 2+ pulses in upper and lower extremities. Brisk capillary refill. No edema. Data 06/19/23 03:59 06/20/23 03:39 Other Labs: CXR by my read shows possible increased plate-like atelecte Micro: CXR by my read shows possible increased plate-like atelectesis in left lung vs. increased pleural effusion of left lung compared to previous CXR taken 2 days prior. Bladder scan ordered. A&P Assessment and plan (1) Atrial flutter: Cardiology consultation appreciated. May consider cardioversion based on their guidance due to continued afib and worsening renal function. Metoprolol decreased to 25 mg 3 times daily Amiodarone was discontinued. Continue methimazole treatment for hyperthyroidism. Thyroid studies still consistent with hypothyroidism Magnesium levels normal. Concerned regarding continued worsening renal function from yesterday BMP daily. (2) Hyperthyroidism: Pt was recently found to have hyperthyroidism and was started on methimazole. Pt was found to have labs consistent with hyperthyroidism during hospitalization. Continue methimazole. Amiodarone was discontinued as a potential contributer (3) Type 2 diabetes mellitus: Start sliding scale insulin. Continue long-acting insulin but at reduced amounts secondary to hospitalization as well as acute kidney injury. (4) FABI (acute kidney injury): Pt has CKD that has now been complicated by an acute injury as renal labs have worsened. Renal function has worsened since yesterday. Pt had been rehydrated with fluids due to FABI secondary to hypotension/dehydration, but there is now worry of pt being in cardiorenal syndrome. He was given furosemide due to increased SOB secondary to volume overload, and renal function continues to be worsened. Medicine list reviewed again. Bladder scan ordered to assess for retention. Patient is already on Flomax. Plan Multiple other medical problems as documented in the past medical history Eliquis will suffice for DVT prophylaxis. Full code currently Has significant acute kidney injury, and ultrasound was performed today. We will need to repeat BMP tomorrow, to monitor for worsening renal function. Renal failure is a serious exacerbation of chronic health illness, for which he is receiving IV fluids and daily monitoring with laboratory to make sure renal function improves. Coding Level of Care Code 11405 Diagnoses Atrial flutter I48.92 Hyperthyroidism E05.90 Type 2 diabetes mellitus E11.9 FABI (acute kidney injury) N17.9 Time Spent (min) 28 Documented by User: Wes Snowden MD 06/20/23 09:45 Subjective Subjective: Pt's main concern today is shortness of breath. He became short of breath yesterday evening, and there was concern he was becoming volume overloaded, so he was given one dose of furosemide 20 via IV. Pt states he has had increased urination since then. He was also started on oxygen via nasal canulla overnight. While trying to change his clothes this morning, he became very short of breath, but he says he denies it when he is rested. He is without chest pain, cough, and denies experiencing palpitations despite his what his security monitor shows. He has no other concerns at this time. Patient was seen and examined with the medical student, and I interviewed the patient, saw him as well, and addended this note as as fitting for my visit. Data 06/19/23 03:59 06/20/23 03:39 A&P Assessment and plan (1) Atrial flutter: Cardiology consultation appreciated. We will evaluate today, regarding further options for treatment. Metoprolol decreased to 25 mg 3 times daily Diltiazem changed to 60 mg twice daily, extended release Amiodarone was discontinued. Continue methimazole treatment for hyperthyroidism. Thyroid studies still consistent with hypothyroidism Magnesium levels normal. Concerned regarding continued worsening renal function from yesterday BMP daily. Check echo secondary to persistent hypotension, fluid overload (2) Hyperthyroidism: (3) Type 2 diabetes mellitus: Continue sliding scale insulin. Continue long-acting insulin but at reduced amounts secondary to hospitalization as well as acute kidney injury. (4) FABI (acute kidney injury): Pt has CKD that has now been complicated by an acute injury as renal labs have worsened. Renal function has worsened since yesterday. Pt had been rehydrated with fluids due to FABI secondary to hypotension/dehydration, but there is now worry of pt being in cardiorenal syndrome. He was given furosemide due to increased SOB secondary to volume overload, and renal function continues to be worsened. IV fluid was discontinued. Another small dose of Lasix this morning. Medicine list reviewed again. Bladder scan ordered to assess for retention. Patient is already on Flomax. Renal ultrasound did not show significant obstruction yesterday. Plan Multiple other medical problems as documented in the past medical history Eliquis will suffice for DVT prophylaxis. Full code currently Worsening renal failure, nonresponsive to traditional treatment for atrial fibrillation with rapid ventricular rates. IV fluids discontinued, close follow-up of renal function. I had a discussion with cardiology this morning, will be evaluating the patient and recommended further treatment. Attestations Medical Necessity Statement*: Needs continued hospitalization for close monitoring of renal function worsening with nonresponse to traditional treatment of A-fib with RVR Diagnoses Atrial flutter I48.92 Hyperthyroidism E05.90 Type 2 diabetes mellitus E11.9 FABI (acute kidney injury) N17.9 Time Spent (min) 28
[2023-06-20] MEDS: atorvastatin 40 mg Tablet 80 MG PO (09:02)
[2023-06-20] MEDS: gabapentin 300 mg Capsule 600 MG PO ×2 (09:02→17:56)
[2023-06-20] MEDS: methIMAzole 5 MG Tablet 20 MG PO (09:02)
[2023-06-20] MEDS: dilTIAZem ER (12HR) 60 mg Capsule PO (09:02)
[2023-06-20] MEDS: allopurinol 100 mg Tablet 150 MG PO (09:02)
[2023-06-20] MEDS: aspirin 81 mg EC Tablet PO (09:02)
[2023-06-20] MEDS: ezetimibe 10 mg Tablet PO (09:02)
[2023-06-20] MEDS: PARoxetine 20 mg Tablet 40 MG PO (09:03)
[2023-06-20] MEDS: docusate sodium 100 mg Capsule 200 MG PO ×2 (09:03→17:56)
[2023-06-20] MEDS: apixaban 5 mg Tablet PO ×2 (09:03→17:56)
[2023-06-20] MEDS: guaiFENesin 600 mg Tablet PO ×2 (09:03→17:56)
[2023-06-20] MEDS: FUROsemide 10 mg/mL SDV 2mL 20 MG IVP (09:03)
[2023-06-20] MEDS: metoprolol tartrate 25 mg Tablet PO ×2 (09:03→18:53)
--- NOTE | 2023-06-20 09:32 | PC.SOCIAL ---
IMM Update Pg. 2 of IMM updated and reviewed with patient. Copy provided and copy placed in chart.
[2023-06-20] MEDS: digoxin 250 mcg/ml INJ 2 mL IVP (10:22)
[2023-06-20 11:05] LABS: Glucose Point of Care 187 mg/dL (70-110)
--- NOTE | 2023-06-20 11:38 | PM.PN ---
Subjective Subjective: He became SOB yesterday evening and overnight. He feels somewhat better with IV lasix and oxygen. CXR with left mid to lower lung field atelectasis versus infiltrate with a small left pleural effusion. Tele with atrial flutter with RVR. HR in 120's-130's Medications: Reviewed: Yes Vitals/I&O/Wt Last Vital Signs Temp 98.4 F 06/20/23 08:00 Pulse 135 H 06/20/23 08:00 Resp 18 06/20/23 06:00 BP 100/70 06/20/23 08:00 Pulse Ox 97 06/20/23 08:00 O2 Del Method Nasal Cannula 06/20/23 08:00 O2 Flow Rate 2 06/20/23 06:00 06/19/23 06/20/23 06/20/23 22:59 06:59 14:59 Intake Total 2800.00 / 3660.00 200 / 3860.00 360 / 360 Output Total 650 / 950 400 / 1350 400 / 400 Balance 2150.00 / 2710.00 -200 / 2510.00 -40 / -40 Physical Exam Const: COMMON NORMALS: no acute distress, patient oriented x3 and alert GENERAL APPEARANCE: cooperative, comfortable, well kempt and well hydrated HENMT: COMMON NORMALS: hearing grossly normal bilaterally and external ears normal FACE & SINUS: normal facial exam EXTERNAL EAR: Yes external ears normal Eye: COMMON NORMALS: EOMs intact bilaterally and no scleral icterus GENERAL EYE: appearance normal, both eyes and all related structures ALIGNMENT: Yes alignment normal Neck/C-Spine: COMMON NORMALS: supple and no JVD GENERAL: Yes normal visual inspection CAROTIDS: Yes normal carotid upstroke Chest: COMMONS NORMALS: normal inspection of the chest and normal palpation of entire chest wall CHEST: Yes Symmetrical chest wall rise and No tenderness Resp: COMMON NORMALS: clear to auscultation bilaterally EFFORT & INSPECTION: Yes able to speak in complete sentences, No tachypneic, No respiratory distress, No pursed lip breathing, No labored and No Actively coughing AUSCULTATION: clear to auscultation bilaterally, no crackles, no rales, no rhonchi and no wheezes Cardio: COMMON NORMALS: no JVD, regular rhythm, S1 normal heart sound present, S2 normal heart sound present and Peripheral pulses 2+ throughout PALPATION: normal PMI RATE: tachycardic RHYTHM: regular rhythm HEART SOUNDS: S1 normal heart sound present, S2 normal heart sound present, no click, no gallops and no murmurs BRUITS: no carotid bruits PERIPHERAL PULSES: Peripheral pulses 2+ throughout, radial pulses present, posterior tibial pulses present and dorsalis pedis present GI: COMMON NORMALS: Soft to palpation AUSCULTATION: Yes normoactive bowel sounds PALPATION: Yes Soft to palpation, No Tenderness to palpation present (GI), No Guarding due to palpation present (GI) and No Rigid due to palpation Extremity: GENERAL: No cyanosis, No edema (trace) and No pallor Neuro: COMMON NORMALS: patient oriented x3 and no focal motor deficits SENSORIUM/ORIENTATION: Yes alert Psych: COMMON NORMALS: Normal thought process present and speech normal APPEARANCE: Yes well kempt SPEECH: Yes normal speech MOOD & AFFECT: Yes euthymic mood THOUGHT PROCESS: Normal thought process present THOUGHT CONTENT: Yes Normal thought content present Data 06/19/23 03:59 06/20/23 03:39 A&P Assessment and plan (1) Atrial flutter: Paroxysmal atrial flutter with RVR on PO cardizem and metoprolol -stay off amiodarone -Rate control does not seem to be working; BP does not allow med titration - Not a candidate for sotalol given CrCl<40 (not a great agent at this time given FABI on CKD) and or ablation as an outpatient -will try Tikosyn 125 mcg twice a day. 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
[2023-06-20] MEDS: insulin lispro 100 unit/1 mL SUBCUT ×2 (13:26→21:23)
[2023-06-20] MEDS: perflutren protein-a microsphr 0.22 mg/mL SDV 3 mL IV (15:19)
[2023-06-20] MEDS: tamsulosin 0.4 mg Capsule PO (17:56)
--- NOTE | 2023-06-20 18:35 | PC.NURSE ---
Patient's heart rate sustaining 130-140s after exertion. Informed Dr Gallo and received onetime order for Metoprolol 25mg PO. RBVO
[2023-06-20 20:15] LABS: Glucose Point of Care 127 mg/dL (70-110)
[2023-06-20 20:47] LABS: Glucose Point of Care 235 mg/dL (70-110)
[2023-06-20] MEDS: insulin glargine 100 units/1 mL 20 UNIT SUBCUT (21:24)
[2023-06-21] VITALS (10 sets, daily range): BP systolic 109–141; BP diastolic 73–83; PULSE 94–125; RESP 17–26; TEMP 36.5–37.4; O2SAT 92–97
[2023-06-21] MEDS: dilTIAZem 30 mg Tablet PO ×4 (02:22→20:44)
[2023-06-21 05:08] LABS: Basophils # 0.1 10^3/uL (0.0-0.1); Basophils % 0.5 %; Eosinophils # 0.1 10^3/uL (0.0-0.8); Eosinophils % 0.5 %; Lymphocytes # 1.2 10^3/uL (0.8-4.8); Lymphocytes % 10.5 %; Mean Corpuscular HGB Conc 31.8 g/dL (30-55); Mean Corpuscular Hemoglobin 29.2 pg (27-33); Mean Corpuscular Volume 91.9 fl (82-101); Mean Platelet Volume 11.2 fL (7.4-10.4); Monocytes # 1.3 10^3/uL (0.2-0.9); Monocytes % 11.7 %; Neutrophils # 8.36 10^3/uL (1.8-7.7); Neutrophils % 76.3 %; Nucleated Red Blood Cells % 0 %; Platelet Count 159 10^3/cmm (157-399); Red Blood Count 3.59 10^6/uL (3.85-5.65); Red Cell Distribution Width 13.4 % (12.1-15.1); White Blood Count 10.95 10^3/uL (3.29-11.43)
[2023-06-21 05:21] LABS: Alanine Aminotransferase 15 U/L (0-41); Albumin Level 3.6 g/dL (3.5-5.2); Alkaline Phosphatase 112 U/L (40-130); Anion Gap 17.9 (5-19); Aspartate Amino Transferase 12 U/L (0-40); Blood Urea Nitrogen 60 mg/dL (8-23); Calcium 8.7 mg/dL (8.5-10.5); Carbon Dioxide 21 mmol/L (22-29); Chloride 99 mmol/L (98-107); Globulin 2.8 g/dL (1.3-4.6); Glucose 116 mg/dL (65-115); Osmolality Calculated 294 mOsm/kg (285-295); Potassium 4.9 mmol/L (3.5-5.1); Sodium 133 mmol/L (136-145); Total Bilirubin 0.8 mg/dL (0.15-1.2); Total Protein 6.4 g/dL (6.6-8.7)
[2023-06-21 05:28] LABS: Magnesium 1.9 mg/dL (1.7-2.3)
[2023-06-21 06:39] LABS: Glucose Point of Care 115 mg/dL (70-110)
[2023-06-21] MEDS: gabapentin 300 mg Capsule 600 MG PO ×2 (07:44→17:56)
[2023-06-21] MEDS: metoprolol tartrate 25 mg Tablet PO ×4 (07:45→20:44)
[2023-06-21] MEDS: apixaban 5 mg Tablet PO ×2 (07:45→17:56)
[2023-06-21] MEDS: methIMAzole 5 MG Tablet 20 MG PO (07:45)
[2023-06-21] MEDS: ezetimibe 10 mg Tablet PO (07:45)
[2023-06-21] MEDS: atorvastatin 40 mg Tablet 80 MG PO (07:45)
[2023-06-21] MEDS: allopurinol 100 mg Tablet 150 MG PO (07:45)
[2023-06-21] MEDS: aspirin 81 mg EC Tablet PO (07:45)
[2023-06-21] MEDS: docusate sodium 100 mg Capsule 200 MG PO ×2 (07:46→17:56)
[2023-06-21] MEDS: PARoxetine 20 mg Tablet 40 MG PO (07:46)
[2023-06-21] MEDS: guaiFENesin 600 mg Tablet PO ×2 (07:46→17:56)
--- NOTE | 2023-06-21 08:00 | ECG_ITS ---
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 Measurements Intervals [place] Rate: 128 P: 0 MN: 0 QRS: 86 QRSD: 142 T: 8 QT: 332 QTc: 486 Interpretive Statements ATRIAL FLUTTER/TACHYCARDIA WITH RAPID VENTRICULAR RESPONSE RIGHT BUNDLE BRANCH BLOCK [120+ ms QRS DURATION, UPRIGHT V1, 40+ ms S IN I/aVL/V4/V5/V6] Compared to ECG 06/17/2023 14:44:02 Right bundle-branch block now present Atrial fibrillation no longer present Incomplete right bundle-branch block no longer present ST (T wave) deviation no longer present Electronically Signed On 06-21-2023 8:59:29 CDT by Royer Dennison M.D. [email or web address]
--- NOTE | 2023-06-21 08:02 | P.PN_ITS ---
Documented by User: Jeimy Allred 06/21/23 08:44 Subjective Subjective: Today, pt was still reporting some shortness of breath with exertion. He says he feels like he is improving, but when speaking with his daughter, she reports that his urine output has been low and that he seems slightly confused at times. His rate continues to be elevated and not in rhythm, but pt denies any palpitati ons or chest pain. His only concern today is shortness of breath. Vitals/I&O/Wt Last Vital Signs Temp 97.7 F 06/21/23 07:54 Pulse 110 H 06/21/23 07:54 Resp 17 06/21/23 07:54 BP 110/77 06/21/23 07:54 Pulse Ox 97 06/21/23 07:54 O2 Del Method Nasal Cannula 06/21/23 07:54 O2 Flow Rate 2 06/21/23 07:52 06/20/23 06/21/23 06/21/23 22:59 06:59 14:59 Intake Total 240 / 800 700 / 1500 Output Total 150 / 850 300 / 1150 Balance 90 / -50 400 / 350 Physical Exam Narrative: General: pt is alert, conversant, cooperative pt who appears mildly short of alejandro ath and is on 2L of O2 via nasal canulla. Neck: supple. Cardiac: tachycardic, irregularly irregular rhythm. No murmurs. Respiratory: wheezing present bilaterally. Abdominal retractions present. Abdomen: normoactive bowel sounds in all 4 quadrants, no tenderness to palpation. Extremities: 2+ pulses in upper and lower extremities. No edema. Neuro: no focal neurologic deficits. Pt appears oriented. Data 06/21/23 04:13 06/21/23 04:13 Other Labs: Magnesium normal, LFTs normal Protein 6.4 Echo showed mildly reduced EF 45-50%, mild global hypokinesis, mild mitral/tricu spid regurgitation, mild pulmonary hypertension. Compared to previous echo from 2021, LV systolic is mildly reduced now A&P Assessment and plan (1) Atrial flutter: Cardiology consultation appreciated. We will evaluate today, regarding further options for treatment. Metoprolol scheduled for 25 mg 3 times daily Diltiazem changed to 30 mg Q6H Tikosyn 125 mcg added for twice per day to further assist with rate/rhythm con trol. Cardiology will continue to follow for future need for cardioversion. Amiodarone was discontinued. Continue methimazole treatment for hyperthyroidism. Thyroid studies still consistent with hypothyroidism Magnesium levels normal. Renal function stable from yesterday. Will give dose of Lasix this morning for pt's shortness of breath and minimal urine output, secondary to decreased heart function. Echo showed some global hypokinesis and 45-50% EF. Pt encouraged to move more today. BMP daily. (2) Hyperthyroidism: Pt was recently found to have hyperthyroidism and was started on methimazole. Pt was found to have labs consistent with hyperthyroidism during hospitalization. Continue methimazole. Amiodarone was discontinued as a potential contributer (3) Type 2 diabetes mellitus: Continue sliding scale insulin. Continue long-acting insulin but at reduced amounts secondary to hospitalization as well as acute kidney injury. (4) FABI (acute kidney injury): Pt has CKD that has now been complicated by an acute injury as renal labs have worsened. Renal function stable/slightly improved from yesterday. There is worry of pt being in cardiorenal syndrome. He was given furosemide today due to increased SOB secondary to volume overload, and renal function continues to be worse than baseline. Medicine list reviewed again. Bladder scan ordered to assess for retention and did not show any significant retention. Patient is already on Flomax. BMP daily. Plan Multiple other medical problems as documented in the past medical history Eliquis will suffice for DVT prophylaxis. Full code currently Worsening renal failure, nonresponsive to traditional treatment for atrial fibrillation with rapid ventricular rates. IV fluids discontinued, close fo llow-up of renal function. I had a discussion with cardiology this morning, will be evaluating the patient and recommended further treatment. Coding Level of Care Code 90560 Diagnoses Atrial flutter I48.92 Hyperthyroidism E05.90 Type 2 diabetes mellitus E11.9 FABI (acute kidney injury) N17.9 Time Spent (min) 25 Documented by User: Wes Snowden MD 06/21/23 09:14 Subjective Medications: Reviewed: Yes Data 06/21/23 04:13 06/21/23 04:13 A&P Assessment and plan (1) Atrial flutter: (2) Hyperthyroidism: (3) Type 2 diabetes mellitus: (4) FABI (acute kidney injury): Plan Multiple other medical problems as documented in the past medical history Eliquis will suffice for DVT prophylaxis. Full code currently This patient was seen in tandem with the medical student and this note was co- created with them. Attestations Medical Necessity Statement*: Needs continued hospital stay for close follow-up of renal failure, and this patient with high risk for further deterioration. Close follow-up with IV diuretics is warranted with BMPs daily. Diagnoses Atrial flutter I48.92 Hyperthyroidism E05.90 Type 2 diabetes mellitus E11.9 FABI (acute kidney injury) N17.9 Time Spent (min) 25
[2023-06-21] MEDS: FUROsemide 10 mg/mL SDV 2mL 20 MG IVP (08:17)
--- NOTE | 2023-06-21 08:49 | ECG_ITS ---
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 Measurements Intervals [place] Rate: 89 P: -85 FL: 207 QRS: 126 QRSD: 102 T: 184 QT: 335 QTc: 410 Interpretive Statements Atrial fibrillation INDETERMINATE AXIS LOW QRS VOLTAGE IN PRECORDIAL LEADS [QRS DEFLECTION < 1.0 mV IN CHEST LEADS] LEFT POSTERIOR FASCICULAR BLOCK [QRS AXIS > 109, INFERIOR Q] LATERAL MYOCARDIAL INFARCTION , OF INDETERMINATE AGE [40+ ms Q WAVE AND/OR ST/T ABNORMALITY IN I/aVL/V5/V6] Compared to ECG 06/17/2023 14:44:02 Indeterminate axis now present Incomplete right bundle-branch block no longer present ST (T wave) deviation no longer present Electronically Signed On 06-21-2023 9:00:48 CDT by Royer Dennison M.D. [id number] gorman
--- NOTE | 2023-06-21 08:52 | PM.PN ---
Subjective Subjective: remains tachycardic, seems like instead on one dose of metoprolol and cardizem; 2 doses got held. Medications: Reviewed: Yes Vitals/I&O/Wt Last Vital Signs Temp 97.7 F 06/21/23 07:54 Pulse 110 H 06/21/23 07:54 Resp 17 06/21/23 07:54 BP 110/77 06/21/23 07:54 Pulse Ox 97 06/21/23 07:54 O2 Del Method Nasal Cannula 06/21/23 07:54 O2 Flow Rate 2 06/21/23 07:52 06/20/23 06/21/23 06/21/23 22:59 06:59 14:59 Intake Total 240 / 800 700 / 1500 0 / 0 Output Total 150 / 850 300 / 1150 Balance 90 / -50 400 / 350 0 / 0 Physical Exam Const: COMMON NORMALS: no acute distress, patient oriented x3 and alert GENERAL APPEARANCE: cooperative, comfortable, well kempt and well hydrated HENMT: COMMON NORMALS: hearing grossly normal bilaterally and external ears normal FACE & SINUS: normal facial exam EXTERNAL EAR: Yes external ears normal Eye: COMMON NORMALS: EOMs intact bilaterally and no scleral icterus GENERAL EYE: appearance normal, both eyes and all related structures ALIGNMENT: Yes alignment normal Neck/C-Spine: COMMON NORMALS: supple and no JVD GENERAL: Yes normal visual inspection CAROTIDS: Yes normal carotid upstroke Chest: COMMONS NORMALS: normal inspection of the chest and normal palpation of entire chest wall CHEST: Yes Symmetrical chest wall rise and No tenderness Resp: COMMON NORMALS: clear to auscultation bilaterally EFFORT & INSPECTION: Yes able to speak in complete sentences, No tachypneic, No respiratory distress, No pursed lip breathing, No labored and No Actively coughing AUSCULTATION: clear to auscultation bilaterally, no crackles, no rales, no rhonchi and no wheezes Cardio: COMMON NORMALS: no JVD, regular rate, regular rhythm, S1 normal heart sound present, S2 normal heart sound present and Peripheral pulses 2+ throughout PALPATION: normal PMI RATE: regular rate and tachycardic RHYTHM: regular rhythm HEART SOUNDS: S1 normal heart sound present, S2 normal heart sound present, no click, no gallops and no murmurs BRUITS: no carotid bruits PERIPHERAL PULSES: Peripheral pulses 2+ throughout, radial pulses present, posterior tibial pulses present and dorsalis pedis present GI: COMMON NORMALS: Soft to palpation AUSCULTATION: Yes normoactive bowel sounds PALPATION: Yes Soft to palpation, No Tenderness to palpation present (GI), No Guarding due to palpation present (GI) and No Rigid due to palpation Extremity: GENERAL: No cyanosis, No edema (trace) and No pallor Neuro: COMMON NORMALS: patient oriented x3 and no focal motor deficits SENSORIUM/ORIENTATION: Yes alert Psych: COMMON NORMALS: Normal thought process present and speech normal APPEARANCE: Yes well kempt SPEECH: Yes normal speech MOOD & AFFECT: Yes euthymic mood THOUGHT PROCESS: Normal thought process present THOUGHT CONTENT: Yes Normal thought content present Data 06/21/23 04:13 06/21/23 04:13 A&P Assessment and plan (1) Atrial flutter: Paroxysmal atrial flutter with RVR on PO cardizem and metoprolol -stay off amiodarone -Rate control does not seem to be working; BP does not allow med titration - Not a candidate for sotalol given CrCl<40 (not a great agent at this time given FABI on CKD) and or ablation as an outpatient -will try Tikosyn 125 mcg twice a day. 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
[2023-06-21 11:16] LABS: Glucose Point of Care 184 mg/dL (70-110)
--- NOTE | 2023-06-21 11:41 | PC.SOCIAL ---
IMM Update pg 2 of IMM updated and reviewed w/patient. Copy provided and Copy dated, initialed and placed in chart.
[2023-06-21] MEDS: insulin lispro 100 unit/1 mL SUBCUT ×3 (11:59→20:44)
[2023-06-21 16:57] LABS: Glucose Point of Care 182 mg/dL (70-110)
[2023-06-21] MEDS: tamsulosin 0.4 mg Capsule PO (17:56)
--- NOTE | 2023-06-21 20:13 | ECG_ITS ---
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 Measurements Intervals [place] Rate: 125 P: 220 DC: 225 QRS: 96 QRSD: 154 T: 9 QT: 344 QTc: 498 Interpretive Statements SINUS TACHYCARDIA WITH FIRST DEGREE AV BLOCK RIGHT BUNDLE BRANCH BLOCK [120+ ms QRS DURATION, UPRIGHT V1, 40+ ms S IN I/aVL/V4/V5/V6] Compared to ECG 06/21/2023 08:36:26 First degree AV block now present Atrial flutter no longer present Electronically Signed On 06-21-2023 23:10:04 CDT by Royer Dennison M.D. [id number]
--- NOTE | 2023-06-21 20:22 | PC.NURSE ---
Daughter at bedside is reporting increase confusion. Respirtory is concerned about this patient using accessory muscles and belly breathing. Informed Dr Russell. Received order for ABG. RBVO
[2023-06-21 20:41] LABS: ABG PCO2 43.9 mmHg (35-45); ABG PH Result 7.33 (7.35-7.45); Alveolar-Arterial Oxygen Gradi 2.9 mmHg (5-10); Arterial Blood Gas Hematocrit 32.6 % (42-52); Base Excess ABG -2.7 mmol/L (-2.0-2.0); Blood Gas Sample Type Arterial; HCO3 ABG 23.2 mmol/L (22-26); HGB O2 Sat 93.2 % (95-100); Ionized Calcium Level - ABG 1.2 mmol/L (1.1-1.4); Methemoglobin 0.4 % (0.4-1.5); Oxygen Saturation ABG 95.4; PO2 ABG 72.4 mmHg (80.0-100.0); Potassium Level - ABG 4.6 mmol/L (3.5-5.0); Total Hemoglobin 10.6 g/dL (14-18)
[2023-06-21 20:42] LABS: Blood Gas Sample Site Brachial, right; Oxygen Device NC
[2023-06-21] MEDS: insulin glargine 100 units/1 mL 20 UNIT SUBCUT (20:44)
[2023-06-21 20:49] LABS: Glucose Point of Care 267 mg/dL (70-110)
[2023-06-22] VITALS (10 sets, daily range): BP systolic 95–136; BP diastolic 66–89; PULSE 112–125; RESP 18–30; TEMP 36.3–36.7; O2SAT 88–96
[2023-06-22] MEDS: dilTIAZem 30 mg Tablet PO ×4 (01:53→21:06)
[2023-06-22 05:12] LABS: Anion Gap 16.8 (5-19); Blood Urea Nitrogen 68 mg/dL (8-23); Calcium 8.6 mg/dL (8.5-10.5); Carbon Dioxide 21 mmol/L (22-29); Chloride 95 mmol/L (98-107); Glucose 129 mg/dL (65-115); Osmolality Calculated 287 mOsm/kg (285-295); Potassium 4.8 mmol/L (3.5-5.1); Sodium 128 mmol/L (136-145)
--- NOTE | 2023-06-22 05:32 | PC.NURSE ---
Informed Dr Gallo of patient's rise in creatinine from 2.7 on 06/21 to 3.0 on 06/22. Received instruction to hold next dose of Tikosyn this morning. Dr Gallo will address later today.
--- NOTE | 2023-06-22 06:29 | PM.PN ---
Subjective Subjective: stays in A. flutter with RVR, UO near about the same as before. Medications: Reviewed: Yes Vitals/I&O/Wt Last Vital Signs Temp 98.1 F 06/22/23 03:54 Pulse 118 H 06/22/23 04:12 Resp 18 06/22/23 03:54 BP 136/75 06/22/23 03:54 Pulse Ox 94 06/22/23 03:54 O2 Del Method Nasal Cannula 06/21/23 23:42 O2 Flow Rate 2 06/21/23 07:52 06/21/23 06/21/23 06/22/23 14:59 22:59 06:59 Intake Total 240 / 240 240 / 480 Output Total 300 / 300 575 / 875 Balance 240 / 240 -60 / 180 -575 / -395 Physical Exam Const: COMMON NORMALS: no acute distress, patient oriented x3 and alert GENERAL APPEARANCE: cooperative, comfortable, well kempt and well hydrated HENMT: COMMON NORMALS: hearing grossly normal bilaterally and external ears normal FACE & SINUS: normal facial exam EXTERNAL EAR: Yes external ears normal Eye: COMMON NORMALS: EOMs intact bilaterally and no scleral icterus GENERAL EYE: appearance normal, both eyes and all related structures ALIGNMENT: Yes alignment normal Neck/C-Spine: COMMON NORMALS: supple and no JVD GENERAL: Yes normal visual inspection CAROTIDS: Yes normal carotid upstroke Chest: COMMONS NORMALS: normal inspection of the chest and normal palpation of entire chest wall CHEST: Yes Symmetrical chest wall rise and No tenderness Resp: COMMON NORMALS: clear to auscultation bilaterally EFFORT & INSPECTION: Yes able to speak in complete sentences, No tachypneic, No respiratory distress, No pursed lip breathing, No labored and No Actively coughing AUSCULTATION: clear to auscultation bilaterally, no crackles, no rales, no rhonchi and no wheezes Cardio: COMMON NORMALS: no JVD, regular rate, regular rhythm, S1 normal heart sound present, S2 normal heart sound present and Peripheral pulses 2+ throughout PALPATION: normal PMI RATE: regular rate and tachycardic RHYTHM: regular rhythm HEART SOUNDS: S1 normal heart sound present, S2 normal heart sound present, no click, no gallops and no murmurs BRUITS: no carotid bruits PERIPHERAL PULSES: Peripheral pulses 2+ throughout, radial pulses present, posterior tibial pulses present and dorsalis pedis present GI: COMMON NORMALS: Soft to palpation AUSCULTATION: Yes normoactive bowel sounds PALPATION: Yes Soft to palpation, No Tenderness to palpation present (GI), No Guarding due to palpation present (GI) and No Rigid due to palpation Extremity: GENERAL: No cyanosis, No edema (trace) and No pallor Neuro: COMMON NORMALS: patient oriented x3 and no focal motor deficits SENSORIUM/ORIENTATION: Yes alert Psych: COMMON NORMALS: Normal thought process present and speech normal APPEARANCE: Yes well kempt SPEECH: Yes normal speech MOOD & AFFECT: Yes euthymic mood THOUGHT PROCESS: Normal thought process present THOUGHT CONTENT: Yes Normal thought content present Data 06/23/23 04:30 06/22/23 04:00 A&P Assessment and plan (1) Atrial flutter: Paroxysmal atrial flutter with RVR on PO cardizem and metoprolol -stay off amiodarone -Rate control does not seem to be working; BP does not allow med titration - Not a candidate for sotalol given CrCl<40 (not a great agent at this time given FABI on CKD). will probably need ablation as an outpatient -will try Tikosyn 125 mcg twice a day. 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
--- NOTE | 2023-06-22 06:30 | PC.NURSE ---
Spoke with Dr Gallo and received instruction to give Tikosyn this morning along with metoprolol as ordered by . RASHAD
[2023-06-22 06:33] LABS: Glucose Point of Care 170 mg/dL (70-110)
[2023-06-22] MEDS: metoprolol tartrate 25 mg Tablet PO ×4 (06:33→23:38)
[2023-06-22] MEDS: gabapentin 300 mg Capsule 600 MG PO ×2 (08:04→17:57)
[2023-06-22] MEDS: PARoxetine 20 mg Tablet 40 MG PO (08:05)
[2023-06-22] MEDS: allopurinol 100 mg Tablet 150 MG PO (08:05)
[2023-06-22] MEDS: guaiFENesin 600 mg Tablet PO ×2 (08:06→17:57)
[2023-06-22] MEDS: docusate sodium 100 mg Capsule 200 MG PO ×2 (08:06→17:57)
[2023-06-22] MEDS: methIMAzole 5 MG Tablet 20 MG PO (08:06)
[2023-06-22] MEDS: atorvastatin 40 mg Tablet 80 MG PO (08:06)
[2023-06-22] MEDS: ezetimibe 10 mg Tablet PO (08:06)
[2023-06-22] MEDS: insulin lispro 100 unit/1 mL SUBCUT ×4 (08:07→21:06)
[2023-06-22] MEDS: apixaban 5 mg Tablet PO ×2 (08:07→17:58)
[2023-06-22] MEDS: aspirin 81 mg EC Tablet PO (08:07)
--- NOTE | 2023-06-22 08:30 | ECG_ITS ---
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 Measurements Intervals [place] Rate: 122 P: 246 AL: 232 QRS: 87 QRSD: 146 T: 3 QT: 344 QTc: 491 Interpretive Statements ATRIAL FLUTTER WITH RVR RIGHT BUNDLE BRANCH BLOCK [120+ ms QRS DURATION, UPRIGHT V1, 40+ ms S IN I/aVL/V4/V5/V6] Compared to ECG 06/21/2023 20:13:17 Sinus tachycardia no longer present Electronically Signed On 06-24-2023 10:53:11 CDT by Glory Gallo M.D. [email or web address]/store/OM/[id number]
--- NOTE | 2023-06-22 10:50 | USR_ITS ---
PROCEDURE INFORMATION: Exam: US Soft Tissue Head and Neck, Thyroid Exam date and time: 06/22/2023 11:16 AM Age: 73 years old Clinical indication: Screening exam. Possible thyroidistis. TECHNIQUE: Imaging protocol: Real-time ultrasound scan of the neck with image documentation. Exam focused on the thyroid. COMPARISON: US biopsy/FNA thyroid [id number] 02/15/2023 9:45 AM FINDINGS: The right thyroid lobe measures 6.8 x 4.1 x 4.1 cm. The right thyroid lobe is heterogeneous. The left thyroid lobe measures 5.3 x 2.1 x 2.8 cm. There is an isoechoic nodule in the left thyroid lobe measuring 1.5 x 1.4 x 2.4 cm. The isthmus measures 1.1 cm. There is an isoechoic nodule in the isthmus measuring 1.4 x 1.3 x 3.0 cm. No thyroid hyperemia is seen. US/US thyroid [id number] IMPRESSION: 1. Heterogeneous, enlarged right thyroid lobe. 2. Prominent nodules in the left thyroid lobe and isthmus. Recommend fine-needle aspiration of these nodules for definitive characterization. 3. No thyroid hyperemia is seen.
[2023-06-22 11:18] LABS: Iron 17 ug/dL (59-158); Percent Saturation 9.3 % (20-50); Total Iron Binding Capacity 181 mcg/dl; Unsaturated Iron Binding 164 ug/dL (112-347)
[2023-06-22 11:34] LABS: Vitamin B12 401 pg/mL (232-1245)
[2023-06-22 11:59] LABS: Glucose Point of Care 205 mg/dL (70-110)
[2023-06-22] MEDS: FUROsemide 10 mg/mL SDV 4mL 40 MG IVP (12:04)
[2023-06-22] MEDS: insulin glargine 100 units/1 mL 20 UNIT SUBCUT ×2 (12:05→17:58)
[2023-06-22] MEDS: methIMAzole 5 MG Tablet 10 MG PO (12:06)
[2023-06-22 13:37] LABS: Add Urine Microscopic? YES; Bilirubin Urine Neg (Negative); Blood Urine Neg (Negative); Glucose Urine UA Norm (Normal); Ketones Urine Negative (Negative); Leukocyte Esterase Urine Trace (Negative); Nitrate Urine Negative (Negative); Protein Urine Neg (Negative); Urine Appearance Clear (CLEAR); Urine Color Yellow (Yellow); Urobilinogen Urine Norm (Negative); pH Urine 5 (5-7)
[2023-06-22 13:38] LABS: WBC Urine 0-4 /hpf (0-5)
[2023-06-22 13:39] LABS: Add Urine Culture? No; Bacteria Urine TRACE /hpf
[2023-06-22 13:42] LABS: Potassium, Radom Urine 22 mmol/L; Urine Random Chloride 33 mmol/L; Urine Random Sodium 34 mmol/L
--- NOTE | 2023-06-22 15:54 | P.PN_ITS ---
Subjective Subjective: Hospital course, labs appreciated. Seen with family at bedside. Patient heart rate running more than 100. Patient lying comfortably in bed on nasal cannula. Denies any complaints of nausea vomiting, headache, chest pain, dizziness. Otherwise hemodynamically stable. No CBC done today, CMP shows hyponatremia with sodium down to 128, BUN of 68, creatinine of 3. As per patient's family he urinated 3 times yesterday, today he has been going more frequently but less amount. Medications: Reviewed: Yes Vitals/I&O/Wt Last Vital Signs Temp 98.1 F 06/22/23 03:54 Pulse 124 H 06/22/23 11:51 Resp 26 H 06/22/23 11:51 BP 114/85 06/22/23 11:51 Pulse Ox 95 06/22/23 11:51 O2 Del Method Nasal Cannula 06/22/23 11:51 O2 Flow Rate 2 06/22/23 09:10 06/22/23 06/22/23 06/22/23 06:59 14:59 22:59 Intake Total 721.28 / 721.28 Output Total 575 / 875 Balance -575 / -395 721.28 / 721.28 Physical Exam Narrative: General: No distress Neck: supple. Cardiac: tachycardic, irregular, irregular rhythm. No murmurs appreciated. Overall rate improved Lungs: clear to auscultation bilaterally. Abdomen: normoactive bowel sounds in all 4 quadrants, no obvious organomegaly. Extremities: 2+ pulses in upper and lower extremities. No edema, cyanosis. Data 06/21/23 04:13 06/22/23 04:00 A&P Assessment and plan (1) Atrial flutter: Appreciate cardiology recommendations. Currently on metoprolol 25 mg every 6 hourly, Cardizem 30 mg every 6 hourly, Tikosyn 125 mcg twice daily. Amiodarone discontinued with concerns for amiodarone induced hyperthyroidism. Echocardiogram reveals EF of 40 to 45% with global LV hypokinesia, mild MR, mild TR, mild pulmonary hypertension. Possible plan for cardioversion in AM. N.p.o. after midnight. High likelihood of sleep apnea. Discussed in detail with patient for sleep study as an outpatient. (2) Hyperthyroidism: Concerns for amiodarone induced hyperthyroidism. Amiodarone has been so far discontinued. TSH persistently 0.01. Free T4 mildly elevated. Care discussed in detail with patient's outpatient security systems specialist Dr. Siddiqui. Agrees with increasing methimazole to 30 mg daily. Plan for thyroid ultrasound with Doppler for further evaluation and with concerns for Graves' disease. C annot rule out inflammatory thyroiditis given concerns for amiodarone-induced hypothyroidism. Start on oral prednisone 40 mg daily as per request from outpatient security systems specialist. Will require urgent follow-up as an outpatient. (3) Type 2 diabetes mellitus: Blood sugars elevated. Takes Lantus 45 units twice daily at home. Increase sliding scale to moderate dose protocol, Lantus to 20 units twice daily. Patient started on steroids today. Will look for hyperglycemia. (4) FABI (acute kidney injury): FABI on CKD. Cannot rule out cardiorenal syndrome. Repeat urinalysis, urine electrolytes. Baseline creatinine 1.5-2.1. Medical reconciliation done for nephrotoxic drugs. IV Lasix 40 mg one-time. Monitor renal functions daily. Continue with Flomax. Plan Multiple other medical problems as documented in the past medical history Tala will suffice for DVT prophylaxis. Full code currently This patient was seen in tandem with the medical student and this note was co- created with them. Attestations Medical Necessity Statement*: Requires further hospitalization for management of atrial fibrillation with rapid ventricular response in setting of amiodarone induced hyperthyroidism, acute kidney injury in setting of cardiorenal syndrome Diagnoses Atrial flutter I48.92 Hyperthyroidism E05.90 Type 2 diabetes mellitus E11.9 FABI (acute kidney injury) N17.9
[2023-06-22 16:24] LABS: Glucose Point of Care 269 mg/dL (70-110)
[2023-06-22] MEDS: tamsulosin 0.4 mg Capsule PO (17:58)
[2023-06-22 21:10] LABS: Glucose Point of Care 263 mg/dL (70-110)
[2023-06-23] VITALS (14 sets, daily range): BP systolic 114–166; BP diastolic 62–94; PULSE 64–122; RESP 16–30; TEMP 36.4–36.8; O2SAT 92–97
[2023-06-23] MEDS: dilTIAZem 30 mg Tablet PO (02:56)
[2023-06-23 05:50] LABS: Lymphocytes # 0.5 10^3/uL (0.8-4.8); Lymphocytes % 7.7 %; Mean Corpuscular HGB Conc 31.8 g/dL (30-55); Mean Corpuscular Hemoglobin 28.8 pg (27-33); Mean Corpuscular Volume 90.7 fl (82-101); Mean Platelet Volume 11.2 fL (7.4-10.4); Monocytes # 0.2 10^3/uL (0.2-0.9); Monocytes % 3.2 %; Neutrophils # 5.27 10^3/uL (1.8-7.7); Neutrophils % 88.8 %; Nucleated Red Blood Cells % 0 %; Platelet Count 189 10^3/cmm (157-399); Red Blood Count 3.75 10^6/uL (3.85-5.65); Red Cell Distribution Width 13.4 % (12.1-15.1); White Blood Count 5.94 10^3/uL (3.29-11.43)
[2023-06-23 06:16] LABS: Alanine Aminotransferase 27 U/L (0-41); Albumin Level 3.8 g/dL (3.5-5.2); Alkaline Phosphatase 141 U/L (40-130); Anion Gap 16.9 (5-19); Aspartate Amino Transferase 24 U/L (0-40); Blood Urea Nitrogen 72 mg/dL (8-23); Calcium 9.5 mg/dL (8.5-10.5); Carbon Dioxide 23 mmol/L (22-29); Chloride 96 mmol/L (98-107); Globulin 3.3 g/dL (1.3-4.6); Glucose 165 mg/dL (65-115); Osmolality Calculated 297 mOsm/kg (285-295); Potassium 4.9 mmol/L (3.5-5.1); Sodium 131 mmol/L (136-145); Total Bilirubin 0.8 mg/dL (0.15-1.2); Total Protein 7.1 g/dL (6.6-8.7)
[2023-06-23] MEDS: metoprolol tartrate 25 mg Tablet PO ×2 (06:21→21:28)
[2023-06-23 06:28] LABS: Glucose Point of Care 164 mg/dL (70-110)
--- NOTE | 2023-06-23 08:05 | P.ANESASSM_ITS ---
Pre-Anesthetic Assessment Height/Weight: Height 1.75 m Weight 102.058 kg Temp Pulse Resp BP Pulse Ox O2 Del Method O2 Flow Rate 97.5 F L 121 H 16 114/85 97 Nasal Cannula 2 06/23/23 04:00 06/23/23 06:00 06/23/23 04:00 06/23/23 04:00 06/23/23 04:00 06/23/23 04:00 06/22/23 22:27 Cardioversion Familial anesthetic complications: None Was Beta Candido taken within 24 hours: Yes Was Clonidine taken within 24 hours: N/A Last intake: > 8hrs Social No alcohol and No tobacco Exam alert, oriented x 3, clear to auscultation bilaterally and regular rate & rhythm Airway Mallampati: Class III Dentition: full Pulmonary Sleep Apnea hx pneumonia CV/HEM Atrial Fibrillation, Arrythmia and Coronary Artery Disease (CABG) Chronic Renal Insufficiency Metabolic Diabetes Mellitus and Thyroid Disease Anesthetic Plan ASA status: 4 Anesthesia: MAC Risk of > 500 ml blood loss (7ml/kg in children): No Medications/Allergies Home Medications Medication Instructions Recorded Confirmed Last Taken Type aspirin 81 mg tablet,delayed 81 mg PO DAILY 10/14/19 06/17/23 06/17/23 History release (Adult Low Dose Aspirin) ezetimibe 10 mg tablet 10 mg PO DAILY 10/14/19 06/17/23 06/17/23 History allopurinol 100 mg tablet 150 mg PO DAILY 07/20/22 06/17/23 06/17/23 History cetirizine 10 mg tablet (Zyrtec) 10 mg PO DAILY 07/20/22 06/17/23 06/17/23 History cholecalciferol (vitamin D3) 25 75 mcg PO DAILY 07/20/22 06/17/23 06/17/23 History mcg (1,000 unit) tablet (Vitamin D3) docusate sodium 100 mg capsule 200 mg PO BID 07/20/22 06/17/23 06/17/23 History (Colace) gabapentin 600 mg tablet 600 mg PO BID 07/20/22 06/17/23 06/17/23 History insulin glargine 100 unit/mL 45 unit SUBCUT BID 07/20/22 06/17/23 06/17/23 History subcutaneous solution paroxetine HCl 40 mg tablet (Paxil) 40 mg PO DAILY 07/20/22 06/17/23 06/17/23 History rosuvastatin 40 mg tablet 20 mg PO DAILY 07/20/22 06/17/23 06/16/23 History sodium bicarbonate 650 mg tablet 650 mg PO BID 07/20/22 06/17/23 06/17/23 Hist ory tamsulosin 0.4 mg capsule (Flomax) 0.4 mg PO QPM 07/20/22 06/17/23 06/16/23 History albuterol sulfate 2.5 mg/3 mL 2.5 mg (3 mL) inhalation Q8H PRN 08/01/22 06/17/23 Unknown Rx (0.083 %) solution for nebulization shortness of breath or wheezing #75 mL calcitriol 0.25 mcg capsule 0.25 mcg PO QAM 10/10/22 06/17/23 06/17/23 History coenzyme Q10 100 mg capsule 100 mg PO DAILY PRN UNKNOWN 10/10/22 06/17/23 10/09/22 History flash glucose scanning reader #1 ea 02/11/23 06/17/23 Unknown Rx (FreeStyle Mati 2 [place]) flash glucose sensor (FreeStyle #6 ea 02/11/23 06/17/23 Unknown Rx Mati 2 Sensor kit) amiodarone 200 mg tablet (Pacerone) 200 mg PO DAILY 03/07/23 06/17/23 06/17/23 History apixaban 5 mg tablet (Eliquis) 5 mg PO BID #180 tabs 03/07/23 06/17/23 06/17/23 Rx omega-3 fatty acids 1,000 mg 1,000 mg PO BID 03/07/23 06/17/23 06/17/23 History capsule methimazole 10 mg tablet 20 mg PO DAILY #120 tabs 05/15/23 06/17/23 06/17/23 Rx Allergies Allergy/AdvReac Type Severity Reaction Status Date / Time No Known Allergies Allergy Verified 05/15/23 07:49 Current Medications Generic Name Dose Route Start Last Admin Trade Name Freq PRN Reason Stop Dose Admin Allopurinol 150 mg 06/18/23 09:00 06/22/23 08:05 Allopurinol 100 Mg Tablet PO 150 mg DAILY BEVERLY Administration Apixaban 5 mg 06/17/23 18:00 06/22/23 17:58 Apixaban 5 Mg Tablet PO 5 mg BID BEVERLY Administration Aspirin 81 mg 06/18/23 09:00 06/22/23 08:07 Aspirin 81 Mg Ec Tablet PO 81 mg DAILY BEVERLY Administration Atorvastatin Calcium 80 mg 06/18/23 09:00 06/22/23 08:06 Atorvastatin 40 Mg Tablet PO 80 mg DAILY BEVERLY Administration Diltiazem HCl 30 mg 06/20/23 15:00 06/23/23 02:56 Diltiazem 30 Mg Tablet PO 30 mg Q6H BEVERLY Administration Docusate Sodium 200 mg 06/17/23 18:00 06/22/23 17:57 Docusate Sodium 100 Mg Capsule PO 200 mg BID BEVERLY Administration Ezetimibe 10 mg 06/18/23 09:00 06/22/23 08:06 Ezetimibe 10 Mg Tablet PO 10 mg DAILY BEVERLY Administration Gabapentin 600 mg 06/17/23 18:00 06/22/23 17:57 Gabapentin 300 Mg Capsule PO 600 mg BID BEVERLY Administration Guaifenesin 600 mg 06/18/23 23:15 06/22/23 17:57 Guaifenesin 600 Mg Tablet PO 600 mg BID BEVERLY Administration Insulin Glargine 20 unit 06/22/23 11:00 06/22/23 17:58 Insulin Glargine 100 Units/1 Ml SUBCUT 20 unit BID BEVERLY Administration Insulin Human Lispro 0 unit 06/17/23 18:00 06/22/23 21:06 Insulin Lispro 100 Unit/1 Ml SUBCUT 10 unit WM&BEDTIME BEVERLY Administration Protocol Metoprolol Tartrate 25 mg 06/22/23 06:30 06/23/23 06:21 Metoprolol Tartrate 25 Mg Tablet PO 25 mg Q6H BEVERLY Administration Non-Formulary Medication 125 mcg 06/21/23 06:00 06/23/23 06:21 Tikosyn PO 125 mcg 0600,1800 BEVERLY Administration Paroxetine HCl 40 mg 06/18/23 09:00 06/22/23 08:05 Paroxetine 20 Mg Tablet PO 40 mg DAILY BEVERLY Administration Tamsulosin HCl 0.4 mg 06/17/23 18:00 06/22/23 17:58 Tamsulosin 0.4 Mg Capsule PO 0.4 mg QPM BEVERLY Administration [facility] Medical History Atherosclerosis Atrial fibrillation Atrial fibrillation with rapid ventricular response Atrial flutter Chest pain Chronic atrial fibrillation Chronic kidney disease Creatinine elevation Depressive disorder Elevated troponin I level Essential hypertension Gout Hyperlipidemia NSTEMI (non-ST elevated myocardial infarction) Peripheral neuropathy Troponin level elevated Surgical History H/O knee surgery History of cholecystectomy Hx of CABG S/P hernia surgery Family History Father Myocardial infarct Mother Stroke Other Family history of premature coronary artery disease Social History Smoking and tobacco/nicotine status: former use of tobacco/nicotine Quit status (tobacco/nicotine): has quit using Year quit tobacco: 1971 Former quit date comment: 1ppd x 20 years Data Anesthesia 06/23/23 04:30 06/23/23 04:30 Short CBC 06/23/23 Range/Units 04:30 WBC 5.94 (3.29-11.43) 10^3/uL Hgb 10.80 L (11.27-16.99) g/dL Hct 34.0 L (37-53) % MCV 90.7 (82-101) fl Plt Count 189 (157-399) 10^3/cmm Neut % (Auto) 88.8 % Neut # (Auto) 5.27 (1.8-7.7) 10^3/uL BMP 06/22/23 06/23/23 04:00 04:30 Sodium 128 L 131 L Potassium 4.8 4.9 Chloride 95 L 96 L Carbon Dioxide 21 L 23 BUN 68 H 72 H Creatinine 3.0 H 2.5 H Glucose 129 H 165 H Calcium 8.6 9.5 Liver Function 06/23/23 Range/Units 04:30 Total Bilirubin 0.8 (0.15-1.2) mg/dL AST 24 (0-40) U/L ALT 27 (0-41) U/L Alkaline Phosphatase 141 H (40-130) U/L Albumin 3.8 (3.5-5.2) g/dL Urine 06/22/23 Range/Units 12:47 Urine Color Yellow (Yellow) Urine Appearance Clear (CLEAR) Urine pH 5 (5-7) Ur Specific [place] 1.010 (1.005-1.030) Urine Protein Neg (Negative) Urine Glucose (UA) Norm (Normal) Urine Ketones Negative (Negative) Urine Nitrate Negative (Negative) Urine Bilirubin Neg (Negative) Ur Leukocyte Esterase Trace H (Negative) Urine RBC None (0-2) /hpf Urine WBC 0-4 H (0-5) /hpf ABG 06/21/23 20:31 Specimen Type Arterial Sample Site Brachial, right ABG pH 7.33 L ABG pCO2 43.9 ABG pO2 72.4 L ABG HCO3 23.2 ABG O2 Saturation 95.4 ABG Base Excess -2.7 L A-a O2 Gradient 2.9 L O2 Delivery Device Nc O2 Liters/Min 2.0 Cardiac Studies: Echocardiogram 06/20/23 Sestamibi Stress Test (Cardiology) 08/01
[2023-06-23 08:27] LABS: Folate Level > 20.0 ng/mL (4.5-32.2)
--- NOTE | 2023-06-23 08:30 | ECG_ITS ---
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 Measurements Intervals [place] Rate: 62 P: 83 NM: 212 QRS: 52 QRSD: 106 T: 55 QT: 430 QTc: 440 Interpretive Statements SINUS RHYTHM WITH FIRST DEGREE AV BLOCK INCOMPLETE RIGHT BUNDLE BRANCH BLOCK [90+ ms QRS DURATION, TERMINAL R IN V1/V2, 40+ ms S IN I/aVL/V4/V5/V6] MINIMAL ST DEPRESSION [0.025+ mV ST DEPRESSION] Compared to ECG 06/22/2023 09:06:40 Incomplete right bundle-branch block now present ST (T wave) deviation now present Right bundle-branch block no longer present Electronically Signed On 06-23-2023 10:59:45 CDT by Glory Gallo M.D. [id number]
--- NOTE | 2023-06-23 08:38 | PM.PN ---
Subjective Subjective: stays in A. flutter with RVR, UO improved, not charted Medications: Reviewed: Yes Vitals/I&O/Wt Last Vital Signs Temp 97.8 F 06/23/23 08:00 Pulse 119 H 06/23/23 08:00 Resp 23 H 06/23/23 08:00 BP 134/88 06/23/23 08:00 Pulse Ox 97 06/23/23 08:00 O2 Del Method Nasal Cannula 06/23/23 08:00 O2 Flow Rate 3 06/23/23 08:00 06/22/23 06/23/23 06/23/23 22:59 06:59 14:59 Intake Total 0 / 721.28 Balance 0 / 721.28 Physical Exam Const: COMMON NORMALS: no acute distress, patient oriented x3 and alert GENERAL APPEARANCE: cooperative, comfortable, well kempt and well hydrated HENMT: COMMON NORMALS: hearing grossly normal bilaterally and external ears normal FACE & SINUS: normal facial exam EXTERNAL EAR: Yes external ears normal Eye: COMMON NORMALS: EOMs intact bilaterally and no scleral icterus GENERAL EYE: appearance normal, both eyes and all related structures ALIGNMENT: Yes alignment normal Neck/C-Spine: COMMON NORMALS: supple and no JVD GENERAL: Yes normal visual inspection CAROTIDS: Yes normal carotid upstroke Chest: COMMONS NORMALS: normal inspection of the chest and normal palpation of entire chest wall CHEST: Yes Symmetrical chest wall rise and No tenderness Resp: COMMON NORMALS: clear to auscultation bilaterally EFFORT & INSPECTION: Yes able to speak in complete sentences, No tachypneic, No respiratory distress, No pursed lip breathing, No labored and No Actively coughing AUSCULTATION: clear to auscultation bilaterally, no crackles, no rales, no rhonchi and no wheezes Cardio: COMMON NORMALS: no JVD, regular rate, regular rhythm, S1 normal heart sound present, S2 normal heart sound present and Peripheral pulses 2+ throughout PALPATION: normal PMI RATE: regular rate and tachycardic RHYTHM: regular rhythm HEART SOUNDS: S1 normal heart sound present, S2 normal heart sound present, no click, no gallops and no murmurs BRUITS: no carotid bruits PERIPHERAL PULSES: Peripheral pulses 2+ throughout, radial pulses present, posterior tibial pulses present and dorsalis pedis present GI: COMMON NORMALS: Soft to palpation AUSCULTATION: Yes normoactive bowel sounds PALPATION: Yes Soft to palpation, No Tenderness to palpation present (GI), No Guarding due to palpation present (GI) and No Rigid due to palpation Extremity: GENERAL: No cyanosis, No edema (trace) and No pallor Neuro: COMMON NORMALS: patient oriented x3 and no focal motor deficits SENSORIUM/ORIENTATION: Yes alert Psych: COMMON NORMALS: Normal thought process present and speech normal APPEARANCE: Yes well kempt SPEECH: Yes normal speech MOOD & AFFECT: Yes euthymic mood THOUGHT PROCESS: Normal thought process present THOUGHT CONTENT: Yes Normal thought content present Data 06/23/23 04:30 06/23/23 04:30 A&P Assessment and plan (1) Atrial flutter: Paroxysmal atrial flutter with RVR on PO cardizem and metoprolol -stay off amiodarone -Rate control does not seem to be working; BP does not allow med titration - Not a candidate for sotalol given CrCl<40 (not a great agent at this time given FABI on CKD). will probably need ablation as an outpatient -will try Tikosyn 125 mcg twice a day. If renal function worsens, may need to stop -Plan for cardioversion today -continue Eliquis Patient tolerated cardioversion well. Will discontinue Cardizem and based on heart rate decrease metoprolol to 25 mg twice a day. Continue Tikosyn. 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 Indication: Symptomatic atrial flutter Anticoagulation: Eliquis Sedation: Propofol by anesthesia Procedure was explained to the patient in detail. Risks and benefits of the procedures were discussed. Informed consent was obtained. After time out was called patient received sedation. Pads were placed anteroposteriorly. [He received 150 J of synchronized biphasic shock ?1 with rastafari of normal sinus rhythm. Patient tolerated the procedure well. Recovery: In unit Coding Level of Care Code 15211 Diagnoses Atrial flutter I48.92 Hyperthyroidism E05.90 FABI (acute kidney injury) N17.9 Hyperlipidemia E78.5
--- NOTE | 2023-06-23 09:05 | PC.NURSE ---
0831-cardioversion for aflutter/afib w/rvr: time out- aneasthesiologist and culture room worker at bedside. airway mgt, pads intact. ivf patent w/ IV ns standing order. 0832- synchronized cardioversion w/120 J delivered to pt. Pt converted successfully to SR w/first degree. 0834- pt is awake and oriented,able to swallow oral fluid. vs monitored.
[2023-06-23] MEDS: allopurinol 100 mg Tablet 150 MG PO (09:37)
[2023-06-23] MEDS: ezetimibe 10 mg Tablet PO (09:37)
[2023-06-23] MEDS: guaiFENesin 600 mg Tablet PO ×2 (09:38→17:18)
[2023-06-23] MEDS: methIMAzole 5 MG Tablet 30 MG PO (09:38)
[2023-06-23] MEDS: insulin glargine 100 units/1 mL 20 UNIT SUBCUT ×2 (09:39→17:18)
[2023-06-23] MEDS: docusate sodium 100 mg Capsule 200 MG PO ×2 (09:39→17:18)
[2023-06-23] MEDS: gabapentin 300 mg Capsule 600 MG PO ×2 (09:39→17:18)
[2023-06-23] MEDS: apixaban 5 mg Tablet PO ×2 (09:39→17:18)
[2023-06-23] MEDS: predniSONE 20 mg Tablet 40 MG PO (09:39)
[2023-06-23] MEDS: PARoxetine 20 mg Tablet 40 MG PO (09:39)
[2023-06-23] MEDS: atorvastatin 40 mg Tablet 80 MG PO (09:39)
[2023-06-23] MEDS: aspirin 81 mg EC Tablet PO (10:49)
--- NOTE | 2023-06-23 12:06 | P.PN_ITS ---
Subjective Subjective: No acute events overnight. Continues to remain in atrial fibrillation with rapid ventricular response. Underwent cardio cardioversion early in the morning and has reverted back to normal sinus rhythm with regular rate. Currently laying comfortably in bed with family at bedside. States he is feeling better. Denies any nausea, vomiting, headache. Blood work appreciated a stable CBC, CMP showing improvement in creatinine down to 3, BUN at 72, sodium improvement to 131 Medications: Reviewed: Yes Vitals/I&O/Wt Last Vital Signs Temp 97.8 F 06/23/23 08:00 Pulse 64 06/23/23 08:00 Resp 23 H 06/23/23 08:00 BP 134/88 06/23/23 08:00 Pulse Ox 96 06/23/23 08:00 O2 Del Method Nasal Cannula 06/23/23 08:00 O2 Flow Rate 3 06/23/23 08:00 06/22/23 06/23/23 06/23/23 22:59 06:59 14:59 Intake Total 0 / 721.28 500 / 500 Balance 0 / 721.28 500 / 500 Physical Exam Narrative: General: No distress Neck: supple. Cardiac: tachycardic, irregular, irregular rhythm. No murmurs appreciated. Overall rate improved Lungs: clear to auscultation bilaterally. Abdomen: normoactive bowel sounds in all 4 quadrants, no obvious organomegaly. Extremities: 2+ pulses in upper and lower extremities. No edema, cyanosis. Data 06/23/23 04:30 06/23/23 04:30 A&P Assessment and plan (1) Atrial flutter: Appreciate cardiology recommendations. Currently on metoprolol 25 mg every 6 hourly, Cardizem 30 mg every 6 hourly, Tikosyn 125 mcg twice daily. Amiodarone discontinued with concerns for amiodarone induced hyperthyroidism. Echocardiogram reveals EF of 40 to 45% with global LV hypokinesia, mild MR, mild TR, mild pulmonary hypertension. Possible plan for cardioversion in AM. N.p.o. after midnight. High likelihood of sleep apnea. Discussed in detail with patient for sleep study as an outpatient. (2) Hyperthyroidism: Concerns for amiodarone induced hyperthyroidism. Amiodarone has been so far discontinued. TSH persistently 0.01. Free T4 mildly elevated. Care discussed in detail with patient's outpatient manager basketball Dr. Siddiqui. Agrees with increasing methimazole to 30 mg daily. Plan for thyroid ultrasound with Doppler for further evaluation and with concerns for Graves' disease. Cannot rule out inflammatory thyroiditis given concerns for amiodarone-induced hypothyroidism. Start on oral prednisone 40 mg daily as per request from outpatient manager basketball. Will require urgent follow-up as an outpatient. (3) Type 2 diabetes mellitus: Blood sugars elevated. Takes Lantus 45 units twice daily at home. Increase sliding scale to moderate dose protocol, Lantus to 20 units twice daily. Patient started on steroids today. Will look for hyperglycemia. (4) FABI (acute kidney injury): FABI on CKD. Cannot rule out cardiorenal syndrome. Repeat urinalysis, urine electrolytes. Baseline creatinine 1.5-2.1. Medical reconciliation done for nephrotoxic drugs. IV Lasix 40 mg one-time. Monitor renal functions daily. Continue with Flomax. Plan Multiple other medical problems as documented in the past medical history Eliquis will suffice for DVT prophylaxis. Full code currently Plan for the day: Monitor post cardioversion. Cardizem stopped and beta-steve changed to twice daily as per cardiology rec ommendations. Continue with Tikosyn. Will dose metoprolol further as per heart rate. Hold off on any IV fluids or Lasix for now. Creatinine improving. Almost down to baseline. Currently 2.5. Baseline around 2.1. Blood sugars better controlled. Continue with Lantus 20 units twice daily, insulin sliding scale. Appreciate endocrine recommendations. Continue with methimazole 30 mg daily, prednisone 40 mg daily. Patient will need to follow-up with endocrine at the earliest on discharge. Repeat CBC and CMP in AM. Patient will also benefit from stress test as an outpatient for possibility of sleep apnea. Attestations Medical Necessity Statement*: Requires further hospitalization for management of atrial fibrillation with rapid ventricular response post cardioversion, resolving FABI, amiodarone-induced hyperthyroidism Diagnoses Atrial flutter I48.92 Hyperthyroidism E05.90 Type 2 diabetes mellitus E11.9 FABI (acute kidney injury) N17.9
[2023-06-23] MEDS: insulin lispro 100 unit/1 mL SUBCUT ×3 (12:49→22:05)
[2023-06-23 12:50] LABS: Glucose Point of Care 277 mg/dL (70-110)
[2023-06-23 16:51] LABS: Glucose Point of Care 318 mg/dL (70-110)
[2023-06-23] MEDS: tamsulosin 0.4 mg Capsule PO (17:18)
--- NOTE | 2023-06-23 19:42 | ECG_ITS ---
[facility] Test Date: 2023-06-23 Pat Name: Jonathan Baker Department: Room: 104 Gender: Male Prep Person: : 1950 Requested By: Glory Gallo Order Number: [id number] Jean MD: Glory Gallo M.D. Measurements Intervals [place] Rate: 79 P: 84 [place]: 212 QRS: 78 QRSD: 110 T: 28 QT: 397 QTc: 457 Interpretive Statements SINUS RHYTHM WITH FIRST DEGREE AV BLOCK LOW QRS VOLTAGE IN PRECORDIAL LEADS [QRS DEFLECTION < 1.0 mV IN CHEST LEADS] PATTERN CONSISTENT WITH PULMONARY DISEASE INCOMPLETE RIGHT BUNDLE BRANCH BLOCK [90+ ms QRS DURATION, TERMINAL R IN V1/V2, 40+ ms S IN I/aVL/V4/V5/V6] MINIMAL ST DEPRESSION [0.025+ mV ST DEPRESSION] Compared to ECG 06/23/2023 08:43:45 Low QRS voltage now present ST (T wave) deviation still present Electronically Signed On 06-24-2023 10:46:57 CDT by Glory Gallo M.D. [id number]
[2023-06-23 21:56] LABS: Glucose Point of Care 289 mg/dL (70-110)
--- NOTE | 2023-06-23 23:20 | PC.NURSE ---
Spoke to regarding patient complaint of shortness of breath. Ambulated to BR without oxygen on and when he returned to bed o2 sat was in 70s. With o2 back on turned up to 3L from 2 and at rest o2 sat was 92%. Patient does have wheezing in lower lobes. Last chest xray on 06/19 showed small left pleural effusion. ordered for portable chest xray.
--- NOTE | 2023-06-23 23:23 | XRR_ITS ---
PROCEDURE INFORMATION: Exam: XR Chest Exam date and time: 06/23/2023 11:40 PM Age: 73 years old Clinical indication: Shortness of breath; Prior surgery; Surgery date: 6+ months; Surgery type: Open heart; Patient HX: C/O SOB. TECHNIQUE: Imaging protocol: Radiologic exam of the chest. Views: 1 view. COMPARISON: CR (CHEST, ) 06/19/2023 7:03 PM FINDINGS: Lungs: Cardiac silhouette size, and vascularity are somewhat accentuated, likely related to poor inspiration/expansion however clinical correlation for mild CHF should be obtained. Upper lungs are clear. Persistent left mid/lower lung opacity suspicious for atelectasis versus pneumonia and left pleural effusion, with no significant change. New ill-defined patchy right midlung opacity may represent atelectasis versus another focus of pneumonia. Pleural spaces: No pneumothorax. Heart/Mediastinum: As above. Bones/joints: No acute osseous findings. Other findings: Single view was submitted. Sternotomy wires and CABG clips. XR/XR chest 1V portable [id number] IMPRESSION: 1. Accentuated cardiac silhouette size and vascularity. See discussion above. 2. Stable left basilar opacity/pleural effusion. New ill-defined patchy opacity in the right mid lung as described.
[2023-06-24] VITALS (32 sets, daily range): BP systolic 124–160; BP diastolic 58–94; PULSE 69–80; RESP 18–30; TEMP 36.4–36.6; O2SAT 89–95
--- NOTE | 2023-06-24 00:25 | PC.NURSE ---
Spoke with regarding patients c/o SOB and chest xray results. ordered one time dose of 20mg IV Lasix.
[2023-06-24] MEDS: FUROsemide 10 mg/mL SDV 2mL 20 MG IVP (00:31)
[2023-06-24 04:18] LABS: Basophils % 0.1 %; Hematocrit 33.7 % (37-53); Lymphocytes # 0.8 10^3/uL (0.8-4.8); Lymphocytes % 4.3 %; Mean Corpuscular HGB Conc 32.3 g/dL (30-55); Mean Corpuscular Hemoglobin 28.8 pg (27-33); Mean Corpuscular Volume 89.2 fl (82-101); Mean Platelet Volume 11.2 fL (7.4-10.4); Monocytes # 1.3 10^3/uL (0.2-0.9); Monocytes % 7.2 %; Neutrophils # 15.89 10^3/uL (1.8-7.7); Neutrophils % 87.9 %; Nucleated Red Blood Cells % 0 %; Platelet Count 250 10^3/cmm (157-399); Red Blood Count 3.78 10^6/uL (3.85-5.65); Red Cell Distribution Width 13.5 % (12.1-15.1); White Blood Count 18.08 10^3/uL (3.29-11.43)
[2023-06-24 04:44] LABS: Alanine Aminotransferase 39 U/L (0-41); Albumin Level 3.7 g/dL (3.5-5.2); Alkaline Phosphatase 142 U/L (40-130); Anion Gap 17.1 (5-19); Aspartate Amino Transferase 29 U/L (0-40); Calcium 9.3 mg/dL (8.5-10.5); Carbon Dioxide 23 mmol/L (22-29); Chloride 97 mmol/L (98-107); Globulin 3.2 g/dL (1.3-4.6); Glucose 178 mg/dL (65-115); Osmolality Calculated 305 mOsm/kg (285-295); Potassium 5.1 mmol/L (3.5-5.1); Sodium 132 mmol/L (136-145); Total Bilirubin 0.6 mg/dL (0.15-1.2); Total Protein 6.9 g/dL (6.6-8.7)
[2023-06-24 04:45] LABS: Blood Urea Nitrogen 88 mg/dL (8-23)
[2023-06-24 06:23] LABS: Glucose Point of Care 172 mg/dL (70-110)
[2023-06-24] MEDS: methIMAzole 5 MG Tablet 30 MG PO (08:10)
[2023-06-24] MEDS: ezetimibe 10 mg Tablet PO (08:10)
[2023-06-24] MEDS: gabapentin 300 mg Capsule 600 MG PO ×2 (08:10→17:45)
[2023-06-24] MEDS: guaiFENesin 600 mg Tablet PO ×2 (08:10→17:45)
[2023-06-24] MEDS: allopurinol 100 mg Tablet 150 MG PO (08:10)
[2023-06-24] MEDS: predniSONE 20 mg Tablet 40 MG PO (08:10)
[2023-06-24] MEDS: metoprolol tartrate 25 mg Tablet PO ×2 (08:11→21:10)
[2023-06-24] MEDS: PARoxetine 20 mg Tablet 40 MG PO (08:11)
[2023-06-24] MEDS: apixaban 5 mg Tablet PO ×2 (08:11→17:45)
[2023-06-24] MEDS: docusate sodium 100 mg Capsule 200 MG PO ×2 (08:11→17:45)
[2023-06-24] MEDS: atorvastatin 40 mg Tablet 80 MG PO (08:11)
[2023-06-24] MEDS: aspirin 81 mg EC Tablet PO (08:12)
[2023-06-24] MEDS: insulin glargine 100 units/1 mL 20 UNIT SUBCUT ×2 (08:12→17:45)
[2023-06-24] MEDS: insulin lispro 100 unit/1 mL SUBCUT ×4 (08:12→21:11)
[2023-06-24] MEDS: FUROsemide 10 mg/mL SDV 4mL 40 MG IVP ×2 (08:56→15:53)
--- NOTE | 2023-06-24 09:23 | ECG_ITS ---
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 Measurements Intervals [place] Rate: 74 P: 94 [place]: 209 QRS: 57 QRSD: 108 T: 28 QT: 412 QTc: 458 Interpretive Statements SINUS RHYTHM LOW QRS VOLTAGE IN PRECORDIAL LEADS [QRS DEFLECTION < 1.0 mV IN CHEST LEADS] INCOMPLETE RIGHT BUNDLE BRANCH BLOCK [90+ ms QRS DURATION, TERMINAL R IN V1/V2, 40+ ms S IN I/aVL/V4/V5/V6] MINIMAL ST DEPRESSION [0.025+ mV ST DEPRESSION] Compared to ECG 06/23/2023 19:42:24 First degree AV block no longer present ST (T wave) deviation still present Electronically Signed On 06-24-2023 10:41:48 CDT by Glory Gallo M.D. [id number]
--- NOTE | 2023-06-24 10:42 | P.PN_ITS ---
Subjective Subjective: He became SOB overnight and received lasix 20 mg IV x1. CXR showed RML infiltrate and pulmonary congestion. Patient was seen multiple times through out the day. remains in SR Medications: Reviewed: Yes Vitals/I&O/Wt Last Vital Signs Temp 97.7 F 06/24/23 04:00 Pulse 76 06/24/23 08:31 Resp 22 H 06/24/23 07:59 BP 141/68 06/24/23 07:59 Pulse Ox 93 06/24/23 08:31 O2 Del Method Nasal Cannula 06/24/23 08:31 O2 Flow Rate 3 06/24/23 08:31 06/23/23 06/24/23 06/24/23 22:59 06:59 14:59 Intake Total 200 / 1060 200 / 1260 120 / 120 Output Total 680 / 680 Balance 200 / 1060 -480 / 580 120 / 120 Physical Exam Const: COMMON NORMALS: no acute distress, patient oriented x3 and alert GENERAL APPEARANCE: cooperative, comfortable, well kempt and well hydrated HENMT: COMMON NORMALS: hearing grossly normal bilaterally and external ears normal FACE & SINUS: normal facial exam EXTERNAL EAR: Yes external ears normal Eye: COMMON NORMALS: EOMs intact bilaterally and no scleral icterus GENERAL EYE: appearance normal, both eyes and all related structures ALIGNMENT: Yes alignment normal Neck/C-Spine: COMMON NORMALS: supple and no JVD GENERAL: Yes normal visual inspection CAROTIDS: Yes normal carotid upstroke Chest: COMMONS NORMALS: normal inspection of the chest and normal palpation of entire chest wall CHEST: Yes Symmetrical chest wall rise and No tenderness Resp: COMMON NORMALS: clear to auscultation bilaterally (except at bases R>L) EFFORT & INSPECTION: Yes able to speak in complete sentences and Yes respiratory distress AUSCULTATION: clear to auscultation bilaterally (except at bases R>L), no crackles, no rales, no rhonchi and no wheezes OTHER: tachypnea+ Cardio: COMMON NORMALS: no JVD, regular rate, regular rhythm, S1 normal heart sound present, S2 normal heart sound present and Peripheral pulses 2+ throughout PALPATION: normal PMI RATE: regular rate and tachycardic RHYTHM: regular rhythm HEART SOUNDS: S1 normal heart sound present, S2 normal heart sound present, no gallops and no murmurs BRUITS: no carotid bruits PERIPHERAL PULSES: Peripheral pulses 2+ throughout, radial pulses present, posterior tibial pulses present and dorsalis pedis present GI: COMMON NORMALS: Soft to palpation AUSCULTATION: Yes normoactive bowel sounds PALPATION: Yes Soft to palpation, No Tenderness to palpation present (GI) and No Guarding due to palpation present (GI) Extremity: GENERAL: No cyanosis, No edema (trace) and No pallor Neuro: COMMON NORMALS: patient oriented x3 and no focal motor deficits SENSORIUM/ORIENTATION: Yes alert Psych: COMMON NORMALS: Normal thought process present and speech normal APPEARANCE: Yes well kempt SPEECH: Yes normal speech MOOD & AFFECT: Yes euthymic mood THOUGHT PROCESS: Normal thought process present THOUGHT CONTENT: Yes Normal thought content present Data 06/24/23 03:26 06/24/23 03:26 A&P Assessment and plan (1) CHF (congestive heart failure), NYHA class III: lasix 40 IV x 2 today -labs this afternoon and changes based on that (2) Atrial flutter: Paroxysmal atrial flutter with RVR -hold off amiodarone -Rate control did not work; BP did not allow med titration - He was not a candidate for sotalol given CrCl<40 (not a great agent at this time given FABI on CKD). -will probably need ablation as an outpatient -will try Tikosyn 125 mcg twice a day. If renal function worsens, may need to stop -s/p cardioversion with rastafari of SR -continue Eliquis and metoprolol tar 25 mg twice a day. Continue Tikosyn. 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
--- NOTE | 2023-06-24 11:26 | P.PN_ITS ---
Subjective Subjective: Patient with chronic atrial fibrillation. Patient was cardioverted in October. But has resumed A-fib. He presented with A-fib with RVR. 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 He was placed on Tikosyn and successfully cardioverted on Saturday, June 23, 2023. He has been on prednisone 40 mg and meth the muscle as an outpatient. Thyroid ultrasound was d one in the hospital. His renal function continues to worsen due to diuretic therapy. And he likely needs a sleep study. Last night patient took off his oxygen at 3 L to go to the bathroom and became acutely short of breath. Chest x-ray was done at that time patient has chronic fibrosis as well as chronic areas of atelectasis. There is no change in chest x-ray. This a.m. patient continues to complain of shortness of breath but states that it is better. There is a concern for pneumonia.Patient has no cough and therefore no sputum production. Patient denies fevers chills or sweats. No documented elevated temperature. Patient and daughter report this occurred after last cardioversion but not as severe. Vitals/I&O/Wt Last Vital Signs Temp 97.7 F 06/24/23 04:00 Pulse 76 06/24/23 08:31 Resp 22 H 06/24/23 07:59 BP 141/68 06/24/23 07:59 Pulse Ox 93 06/24/23 08:31 O2 Del Method Nasal Cannula 06/24/23 08:31 O2 Flow Rate 3 06/24/23 08:31 06/23/23 06/24/23 06/24/23 22:59 06:59 14:59 Intake Total 200 / 1060 200 / 1260 120 / 120 Output Total 680 / 680 Balance 200 / 1060 -480 / 580 120 / 120 Physical Exam Narrative: Elderly obese male in mild distress due to to respiratory effort. Oxygen sats remained stable between 90 and 92 during entire exam Neuro: Alert and oriented x3 exam is nonfocal Heart regular rate and rhythm. No loud murmur no gallops clicks or rubs Lungs: Diminished throughout no wheezes rales or rhonchi. Abdomen: Obese soft nontender nondistended positive bowel sounds Extremities: +1-2 pitting edema to knees Data 06/24/23 03:26 10/23/23 03:26 CXR: My impression: Compared to 06/19/2023 chest x-ray appears better he has the fluid in the right middle lobe fissure right hemidiaphragm elevation and there is fibrosis and atelectasis in the left lower and perhaps left upper middle lobes. But again improved from prior exam Radiologist's impression: IMPRESSION: 1. ? Accentuated cardiac silhouette size and vascularity. See discussion above. 2. ? Stable left basilar opacity/pleural effusion. New ill-defined patchy opacity in the right mid lung as described. A&P Assessment and plan (1) Atrial flutter: Initially A-fib or a flutter with RVR. Patient has been successfully cardioverted and placed on Tikosyn \ (2) Essential hypertension: Fair control on current regimen (3) Hyperthyroidism: Secondary to amiodarone toxicity patient on prednisone and methimazole (4) Acute kidney injury superimposed on chronic kidney disease: If patient required to stay in the hospital per cardiology we will ask nephrology to consult otherwise consult nephrology as outpatient (5) Goiter: Ultrasound of thyroid: IMPRESSION: 1. ? Heterogeneous, enlarged right thyroid lobe. 2. ? Prominent nodules in the left thyroid lobe and isthmus. Recommend fine-needle aspiration of these nodules for definitive characterization. 3. ? No thyroid hyperemia is seen. Per Dr. Siddiqui (6) Type 2 diabetes mellitus: Plan Acute respiratory failure requiring 3 L oxygen and elevated respiratory rate. I do not find that this is respiratory related. Patient does not clinically have pneumonia. Despite radiology read of the right middle lobe it appears to be fluid and not all infectious in etiology. Also recent CAT scan shows a nodule that has been followed in that same right middle lobe. Patient responded with greater than 1 L urine output after dose of Lasix given. Another dose was given late this afternoon. Its possible that hyperthyroidism is causing cardiac disease and thus causing fluid overload. If patient cannot tolerate further Lasix we will consult nephrology for dialysis and fluid management. Attestations Medical Necessity Statement*: Requires further hospitalization for management of acute respiratory failure requiring oxygen post cardioversion, acute on chronic kidney disease and amiodarone-induced hyperthyroidism Coding Level of Care Code Acute Code for [facility] Fwd Diagnoses Atrial flutter I48.92 Essential hypertension I10 Hyperthyroidism E05.90 Acute kidney injury superimposed on chronic kidney disease N17.9; N18.9 Goiter E04.9 Type 2 diabetes mellitus E11.9
--- NOTE | 2023-06-24 11:40 | PC.SOCIAL ---
IMM Updated Updated pt & daughter IMM. No questions voiced. Provided pt a copy. Initialed, dated, & timed copy in chart.
[2023-06-24 11:44] LABS: Glucose Point of Care 190 mg/dL (70-110)
[2023-06-24] MEDS: levalbuterol 1.25 mg/3 mL Neb INHALATION ×2 (14:49→20:21)
[2023-06-24 16:56] LABS: Glucose Point of Care 177 mg/dL (70-110)
[2023-06-24] MEDS: tamsulosin 0.4 mg Capsule PO (17:45)
--- NOTE | 2023-06-24 19:12 | PC.NURSE ---
Shift Note Pt started to have an increase work of breathing, Spo2 drop to 83-84% on 3 L with activity. Doctors notified of the breathing issue. Frequent safety and comfort rounds continue. Orders and/or nursing care completed as indicated. Patient monitored for response to intervention and treatment(s). Education provided includes IV Diuresis and oxygen supplement. Patient and/or cash applications representative verbalizes understanding. Will continue to monitor.
[2023-06-24] MEDS: budesonide 0.5 mg/2 mL Neb INHALATION (20:21)
--- NOTE | 2023-06-24 20:29 | ECG_ITS ---
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 Measurements Intervals [place] Rate: 77 P: 114 [place]: 198 QRS: 66 QRSD: 96 T: 63 QT: 392 QTc: 446 Interpretive Statements SINUS RHYTHM INCOMPLETE RIGHT BUNDLE BRANCH BLOCK [90+ ms QRS DURATION, TERMINAL R IN V1/V2, 40+ ms S IN I/aVL/V4/V5/V6] Compared to ECG 06/24/2023 09:23:22 ST (T wave) deviation no longer present Electronically Signed On 06-24-2023 21:21:10 CDT by Glory Gallo M.D. [id number]
[2023-06-24 20:30] LABS: Glucose Point of Care 282 mg/dL (70-110)
[2023-06-24 21:15] LABS: Anion Gap 17.1 (5-19); Calcium 9.3 mg/dL (8.5-10.5); Carbon Dioxide 25 mmol/L (22-29); Chloride 94 mmol/L (98-107); Glucose 300 mg/dL (65-115); Magnesium 1.8 mg/dL (1.7-2.3); NT Pro B Type Natriuretic Pept 4241 pg/mL (0-450); Osmolality Calculated 310 mOsm/kg (285-295); Potassium 5.1 mmol/L (3.5-5.1); Sodium 131 mmol/L (136-145)
[2023-06-24 21:17] LABS: Blood Urea Nitrogen 87 mg/dL (8-23)
[2023-06-24] MEDS: metOLazone 5 MG Tablet PO (21:36)
[2023-06-25] VITALS (33 sets, daily range): BP systolic 120–160; BP diastolic 61–85; PULSE 72–88; RESP 14–32; TEMP 36.4–36.6; O2SAT 89–96
[2023-06-25] MEDS: levalbuterol 1.25 mg/3 mL Neb INHALATION ×3 (01:59→19:59)
[2023-06-25 06:36] LABS: Glucose Point of Care 115 mg/dL (70-110)
--- NOTE | 2023-06-25 07:10 | PM.PN ---
Subjective Subjective: He is feeling better, UO=3.3 L last 24 hr (best yet) -no events on tele, remains in SR Medications: Reviewed: Yes Vitals/I&O/Wt Last Vital Signs Temp 97.8 F 06/24/23 23:42 Pulse 79 06/25/23 05:22 Resp 18 06/25/23 04:00 BP 124/72 06/25/23 04:00 Pulse Ox 90 06/25/23 04:00 O2 Del Method Nasal Cannula 06/25/23 02:03 O2 Flow Rate 3 06/25/23 02:03 06/24/23 06/25/23 06/25/23 22:59 06:59 14:59 Intake Total 200 / 520 Output Total 1550 / 2580 775 / 3355 Balance -1350 / -2060 -775 / -2835 Physical Exam Const: COMMON NORMALS: no acute distress, patient oriented x3 and alert GENERAL APPEARANCE: cooperative, comfortable, well kempt and well hydrated HENMT: COMMON NORMALS: hearing grossly normal bilaterally and external ears normal FACE & SINUS: normal facial exam EXTERNAL EAR: Yes external ears normal Eye: COMMON NORMALS: EOMs intact bilaterally and no scleral icterus GENERAL EYE: appearance normal, both eyes and all related structures ALIGNMENT: Yes alignment normal Neck/C-Spine: COMMON NORMALS: supple and no JVD GENERAL: Yes normal visual inspection CAROTIDS: Yes normal carotid upstroke Chest: COMMONS NORMALS: normal inspection of the chest and normal palpation of entire chest wall CHEST: Yes Symmetrical chest wall rise and No tenderness Resp: COMMON NORMALS: clear to auscultation bilaterally (except at bases R>L) EFFORT & INSPECTION: Yes able to speak in complete sentences, No tachypneic, Yes respiratory distress, No pursed lip breathing, No labored and No Actively coughing AUSCULTATION: clear to auscultation bilaterally (except at bases R>L), no crackles, no rales, no rhonchi and no wheezes OTHER: tachypnea+ Cardio: COMMON NORMALS: no JVD, regular rate, regular rhythm, S1 normal heart sound present, S2 normal heart sound present and Peripheral pulses 2+ throughout PALPATION: normal PMI RATE: regular rate and tachycardic RHYTHM: regular rhythm HEART SOUNDS: S1 normal heart sound present, S2 normal heart sound present, no click, no gallops and no murmurs BRUITS: no carotid bruits PERIPHERAL PULSES: Peripheral pulses 2+ throughout, radial pulses present, posterior tibial pulses present and dorsalis pedis present GI: COMMON NORMALS: Soft to palpation AUSCULTATION: Yes normoactive bowel sounds PALPATION: Yes Soft to palpation, No Tenderness to palpation present (GI), No Guarding due to palpation present (GI) and No Rigid due to palpation Extremity: GENERAL: No cyanosis, No edema (trace) and No pallor Neuro: COMMON NORMALS: patient oriented x3 and no focal motor deficits SENSORIUM/ORIENTATION: Yes alert Psych: COMMON NORMALS: Normal thought process present and speech normal APPEARANCE: Yes well kempt SPEECH: Yes normal speech MOOD & AFFECT: Yes euthymic mood THOUGHT PROCESS: Normal thought process present THOUGHT CONTENT: Yes Normal thought content present Data 06/25/23 08:15 06/25/23 08:15 A&P Assessment and plan (1) CHF (congestive heart failure), NYHA class III: In exacerbation HFmrEF; tachycardia induced cardiomyopathy lasix 40 IV BID metolazone added -BUN improving and creatinine stable (2) Atrial flutter: Paroxysmal atrial flutter with RVR -hold off amiodarone -Rate control did not work; BP did not allow med titration - He was not a candidate for sotalol given CrCl<40 (not a great agent at this time given FABI on CKD). -will benefit from ablation as an outpatient -tolerating Tikosyn 125 mcg twice a day. If renal function worsens, may need to stop -s/p cardioversion with scientology of SR -continue Eliquis and metoprolol tar 25 mg twice a day. Continue Tikosyn. 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
--- NOTE | 2023-06-25 08:00 | ECG_ITS ---
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 Measurements Intervals [place] Rate: 76 P: 87 [place]: 196 QRS: 62 QRSD: 99 T: 52 QT: 400 QTc: 451 Interpretive Statements SINUS RHYTHM LOW QRS VOLTAGE IN PRECORDIAL LEADS [QRS DEFLECTION < 1.0 mV IN CHEST LEADS] INCOMPLETE RIGHT BUNDLE BRANCH BLOCK [90+ ms QRS DURATION, TERMINAL R IN V1/V2, 40+ ms S IN I/aVL/V4/V5/V6] Compared to ECG 06/24/2023 20:29:37 Low QRS voltage now present Electronically Signed On 06-25-2023 11:05:47 CDT by Glory Gallo M.D. [id number]
[2023-06-25] MEDS: guaiFENesin 600 mg Tablet PO ×2 (08:01→17:29)
[2023-06-25] MEDS: apixaban 5 mg Tablet PO ×2 (08:01→17:29)
[2023-06-25] MEDS: aspirin 81 mg EC Tablet PO (08:01)
[2023-06-25] MEDS: metoprolol tartrate 25 mg Tablet PO ×2 (08:02→21:31)
[2023-06-25] MEDS: PARoxetine 20 mg Tablet 40 MG PO (08:02)
[2023-06-25] MEDS: predniSONE 20 mg Tablet 40 MG PO (08:02)
[2023-06-25] MEDS: methIMAzole 5 MG Tablet 30 MG PO (08:03)
[2023-06-25] MEDS: gabapentin 300 mg Capsule 600 MG PO ×2 (08:03→17:30)
[2023-06-25] MEDS: docusate sodium 100 mg Capsule 200 MG PO ×2 (08:03→17:29)
[2023-06-25] MEDS: atorvastatin 40 mg Tablet 80 MG PO (08:04)
[2023-06-25] MEDS: insulin glargine 100 units/1 mL 20 UNIT SUBCUT ×2 (08:04→17:29)
[2023-06-25] MEDS: ezetimibe 10 mg Tablet PO (08:04)
[2023-06-25] MEDS: allopurinol 100 mg Tablet 150 MG PO (08:04)
[2023-06-25] MEDS: metOLazone 5 MG Tablet PO (08:05)
[2023-06-25 08:26] LABS: Basophils % 0.2 %; Eosinophils # 0.1 10^3/uL (0.0-0.8); Eosinophils % 0.5 %; Hematocrit 34.5 % (37-53); Lymphocytes # 1.2 10^3/uL (0.8-4.8); Mean Corpuscular HGB Conc 32.5 g/dL (30-55); Mean Corpuscular Hemoglobin 28.9 pg (27-33); Mean Corpuscular Volume 89.1 fl (82-101); Mean Platelet Volume 10.4 fL (7.4-10.4); Monocytes # 1.4 10^3/uL (0.2-0.9); Monocytes % 11.2 %; Neutrophils % 78.7 %; Nucleated Red Blood Cells % 0 %; Platelet Count 240 10^3/cmm (157-399); Red Blood Count 3.87 10^6/uL (3.85-5.65); Red Cell Distribution Width 13.6 % (12.1-15.1); White Blood Count 12.82 10^3/uL (3.29-11.43)
[2023-06-25 08:54] LABS: Alanine Aminotransferase 36 U/L (0-41); Albumin Level 4.2 g/dL (3.5-5.2); Alkaline Phosphatase 141 U/L (40-130); Anion Gap 15.7 (5-19); Aspartate Amino Transferase 22 U/L (0-40); Carbon Dioxide 28 mmol/L (22-29); Chloride 96 mmol/L (98-107); Globulin 2.9 g/dL (1.3-4.6); Glucose 105 mg/dL (65-115); Magnesium 1.9 mg/dL (1.7-2.3); Osmolality Calculated 306 mOsm/kg (285-295); Potassium 4.7 mmol/L (3.5-5.1); Sodium 135 mmol/L (136-145); Total Bilirubin 0.9 mg/dL (0.15-1.2); Total Protein 7.1 g/dL (6.6-8.7)
[2023-06-25 09:04] LABS: Blood Urea Nitrogen 84 mg/dL (8-23)
[2023-06-25] MEDS: FUROsemide 10 mg/mL SDV 4mL 40 MG IVP ×2 (10:07→16:28)
[2023-06-25 11:31] LABS: Glucose Point of Care 253 mg/dL (70-110)
--- NOTE | 2023-06-25 11:48 | PC.NURSE ---
Nurse walked into room and he had a bloody nose that lasted about minutes. This stopped with pinching the end of his nose. He requested that we put moisture on O2 tubing. This is done. Patient did say that he was blowing his nose when it started bleeding.
[2023-06-25] MEDS: insulin lispro 100 unit/1 mL SUBCUT ×3 (12:43→21:31)
[2023-06-25 17:28] LABS: Glucose Point of Care 289 mg/dL (70-110)
[2023-06-25] MEDS: tamsulosin 0.4 mg Capsule PO (17:30)
--- NOTE | 2023-06-25 18:08 | P.PN_ITS ---
Subjective Subjective: Patient with chronic atrial fibrillation. Patient was cardioverted in October. But has resumed A-fib. He presented with A-fib with RVR. 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 He was placed on Tikosyn and successfully cardioverted on Saturday, June 23, 2023. He has been on prednisone 40 mg and meth the muscle as an outpatient. Thyroid ultrasound was d one in the hospital. His renal function continues to worsen due to diuretic therapy. And he likely needs a sleep study. 06/24/23: Last night patient took off his oxygen at 3 L to go to the bathroom and became acutely short of breath. Chest x-ray was done at that time patient has chronic fibrosis as well as chronic areas of atelectasis. There is no change in chest x-ray. This a.m. patient continues to complain of shortness of breath but states that it is better. There is a concern for pneumonia.Patient has no cough and therefore no sputum production. Patient denies fevers chills or sweats. No documented elevated temperature. Patient and daughter report this occurred after last cardioversion but not as severe. :: Feeling better today. Complaints of nasal stuffiness due to oxygen feels better on humidified air. Vitals/I&O/Wt Last Vital Signs Temp 97.6 F 06/25/23 07:52 Pulse 82 06/25/23 15:34 Resp 18 06/25/23 15:34 BP 120/61 06/25/23 15:34 Pulse Ox 90 06/25/23 15:34 O2 Del Method Nasal Cannula 06/25/23 15:34 O2 Flow Rate 3.5 06/25/23 13:13 06/25/23 06/25/23 06/25/23 06:59 14:59 22:59 Intake Total 360 / 360 Output Total 775 / 3355 500 / 500 Balance -775 / -2835 -140 / -140 Physical Exam Narrative: Elderly obese male in no distress today currently eating dinner. Neuro: Alert and oriented x3 exam is nonfocal Heart regular rate and rhythm. No loud murmur no gallops clicks or rubs Lungs: Diminished throughout however increased breath sounds. No wheezes rales or rhonchi. Abdomen: Obese soft nontender nondistended positive bowel sounds Extremities: +1 pitting edema long term to knee-this is improved. Data 06/25/23 08:15 06/25/23 08:15 A&P Assessment and plan (1) Atrial flutter: A-fib flutter. Initially with RVR. 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 (5) Goiter: Ultrasound of thyroid: IMPRESSION: 1. ? Heterogeneous, enlarged right thyroid lobe. 2. ? Prominent nodules in the left thyroid lobe and isthmus. Recommend fine-needle aspiration of these nodules for definitive characterization. 3. ? No thyroid hyperemia is seen. Per Dr. Siddiqui (6) Type 2 diabetes mellitus: Plan Acute respiratory failure requiring 3 L oxygen due to decompensated congestive heart failure with mildly reduced ejection fraction due to tachycardic induced cardiomyopathy. Patient is improving with treatment for CHF with Lasix. I do not find that the patient clinically has pneumonia. Improved urine output cardiology is going to continue current Lasix dose of 40 IV plus metolazone. BUN and creatinine are remaining stable. Attestations Medical Necessity Statement*: Requires further hospitalization for management of acute respiratory failure requiring oxygen post cardioversion, acute on chronic kidney disease and amiodarone-induced hyperthyroidism Coding Level of Care Code Acute Code for [facility] Fwd Diagnoses Atrial flutter I48.92 Essential hypertension I10 Hyperthyroidism E05.90 Acute kidney injury superimposed on chronic kidney disease N17.9; N18.9 Goiter E04.9 Type 2 diabetes mellitus E11.9
--- NOTE | 2023-06-25 19:40 | ECG_ITS ---
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 Measurements Intervals [place] Rate: 82 P: 104 [place]: 184 QRS: 66 QRSD: 95 T: 13 QT: 387 QTc: 452 Interpretive Statements SINUS RHYTHM LOW QRS VOLTAGE IN PRECORDIAL LEADS [QRS DEFLECTION < 1.0 mV IN CHEST LEADS] INCOMPLETE RIGHT BUNDLE BRANCH BLOCK [90+ ms QRS DURATION, TERMINAL R IN V1/V2, 40+ ms S IN I/aVL/V4/V5/V6] NONSPECIFIC ST & T-WAVE ABNORMALITY Compared to ECG 06/25/2023 08:10:26 T-wave abnormality now present Electronically Signed On 06-26-2023 8:03:09 CDT by Royer Dennison M.D. [id number]
[2023-06-25] MEDS: budesonide 0.5 mg/2 mL Neb INHALATION (19:59)
[2023-06-25 20:59] LABS: Glucose Point of Care 292 mg/dL (70-110)
[2023-06-26] VITALS (25 sets, daily range): BP systolic 114–146; BP diastolic 64–114; PULSE 70–150; RESP 15–39; TEMP 36.3–36.7; O2SAT 92–97
[2023-06-26] MEDS: levalbuterol 1.25 mg/3 mL Neb INHALATION ×3 (01:59→21:12)
[2023-06-26 06:32] LABS: Glucose Point of Care 150 mg/dL (70-110)
--- NOTE | 2023-06-26 06:34 | PM.PN ---
Subjective Subjective: He went back into atrial flutter with RVR this morning. Excellent UO Medications: Reviewed: Yes Vitals/I&O/Wt Last Vital Signs Temp 98.0 F 06/26/23 03:36 Pulse 78 06/26/23 03:36 Resp 15 06/26/23 03:36 BP 133/80 06/26/23 03:36 Pulse Ox 96 06/26/23 03:36 O2 Del Method Nasal Cannula 06/26/23 03:36 O2 Flow Rate 3 06/26/23 02:06 06/25/23 06/25/23 06/26/23 14:59 22:59 06:59 Intake Total 360 / 360 240 / 600 500 / 1100 Output Total 500 / 500 Balance -140 / -140 240 / 100 500 / 600 Physical Exam Const: COMMON NORMALS: no acute distress, patient oriented x3 and alert GENERAL APPEARANCE: cooperative, comfortable, well kempt and well hydrated HENMT: COMMON NORMALS: hearing grossly normal bilaterally and external ears normal FACE & SINUS: normal facial exam EXTERNAL EAR: Yes external ears normal Eye: COMMON NORMALS: EOMs intact bilaterally and no scleral icterus GENERAL EYE: appearance normal, both eyes and all related structures ALIGNMENT: Yes alignment normal Neck/C-Spine: COMMON NORMALS: supple and no JVD GENERAL: Yes normal visual inspection CAROTIDS: Yes normal carotid upstroke Chest: COMMONS NORMALS: normal inspection of the chest and normal palpation of entire chest wall CHEST: Yes Symmetrical chest wall rise and No tenderness Resp: COMMON NORMALS: clear to auscultation bilaterally EFFORT & INSPECTION: Yes able to speak in complete sentences, No tachypneic, Yes respiratory distress, No pursed lip breathing, No labored and No Actively coughing AUSCULTATION: clear to auscultation bilaterally, no crackles, no rales, no rhonchi and no wheezes OTHER: tachypnea resolved Cardio: COMMON NORMALS: no JVD, regular rate (tachycardia), regular rhythm, S1 normal heart sound present, S2 normal heart sound present and Peripheral pulses 2+ throughout PALPATION: normal PMI RATE: regular rate (tachycardia) and tachycardic RHYTHM: regular rhythm HEART SOUNDS: S1 normal heart sound present, S2 normal heart sound present, no click, no gallops and no murmurs BRUITS: no carotid bruits PERIPHERAL PULSES: Peripheral pulses 2+ throughout, radial pulses present, posterior tibial pulses present and dorsalis pedis present GI: COMMON NORMALS: Soft to palpation AUSCULTATION: Yes normoactive bowel sounds PALPATION: Yes Soft to palpation, No Tenderness to palpation present (GI), No Guarding due to palpation present (GI) and No Rigid due to palpation Extremity: GENERAL: No cyanosis, No edema (trace) and No pallor Neuro: COMMON NORMALS: patient oriented x3 and no focal motor deficits SENSORIUM/ORIENTATION: Yes alert Psych: COMMON NORMALS: Normal thought process present and speech normal APPEARANCE: Yes well kempt SPEECH: Yes normal speech MOOD & AFFECT: Yes euthymic mood THOUGHT PROCESS: Normal thought process present THOUGHT CONTENT: Yes Normal thought content present Data 06/25/23 08:15 06/26/23 06:49 A&P Assessment and plan (1) CHF (congestive heart failure), NYHA class III: In exacerbation HFmrEF; tachycardia induced cardiomyopathy change to lasix 40 PO BID metolazone held -BUN and creatinine improving (2) Atrial flutter: Paroxysmal atrial flutter with RVR -hold off amiodarone -Rate control did not work; BP did not allow med titration - He was not a candidate for sotalol given CrCl<40 (not a great agent at this time given FABI on CKD). -will benefit from ablation as an outpatient -s/p cardioversion with restorationist of SR -continue Eliquis and metoprolol tar 25 mg twice a day. Continue Tikosyn. 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
[2023-06-26 07:12] LABS: Anion Gap 14.1 (5-19); Blood Urea Nitrogen 78 mg/dL (8-23); Calcium 9.5 mg/dL (8.5-10.5); Carbon Dioxide 32 mmol/L (22-29); Chloride 97 mmol/L (98-107); Glucose 144 mg/dL (65-115); Magnesium 1.8 mg/dL (1.7-2.3); Osmolality Calculated 314 mOsm/kg (285-295); Potassium 4.1 mmol/L (3.5-5.1); Sodium 139 mmol/L (136-145)
[2023-06-26] MEDS: insulin lispro 100 unit/1 mL SUBCUT ×4 (08:25→21:40)
[2023-06-26] MEDS: insulin glargine 100 units/1 mL 20 UNIT SUBCUT ×2 (08:26→17:15)
[2023-06-26] MEDS: FUROsemide 10 mg/mL SDV 4mL 40 MG IVP (08:26)
[2023-06-26] MEDS: metoprolol tartrate 25 mg Tablet PO ×2 (08:27→20:22)
[2023-06-26] MEDS: gabapentin 300 mg Capsule 600 MG PO ×2 (08:27→17:04)
[2023-06-26] MEDS: methIMAzole 5 MG Tablet 30 MG PO (08:27)
[2023-06-26] MEDS: metOLazone 5 MG Tablet PO (08:27)
[2023-06-26] MEDS: predniSONE 20 mg Tablet 40 MG PO (08:27)
[2023-06-26] MEDS: PARoxetine 20 mg Tablet 40 MG PO (08:28)
[2023-06-26] MEDS: apixaban 5 mg Tablet PO ×2 (08:28→17:04)
[2023-06-26] MEDS: ezetimibe 10 mg Tablet PO (08:28)
[2023-06-26] MEDS: atorvastatin 40 mg Tablet 80 MG PO (08:28)
[2023-06-26] MEDS: allopurinol 100 mg Tablet 150 MG PO (08:28)
[2023-06-26] MEDS: aspirin 81 mg EC Tablet PO (08:29)
[2023-06-26] MEDS: guaiFENesin 600 mg Tablet PO ×2 (08:29→17:04)
[2023-06-26] MEDS: docusate sodium 100 mg Capsule 200 MG PO ×2 (08:30→17:04)
--- NOTE | 2023-06-26 08:30 | ECG_ITS ---
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 Measurements Intervals [place] Rate: 127 P: 0 IN: 0 QRS: 78 QRSD: 105 T: -5 QT: 314 QTc: 457 Interpretive Statements ATRIAL FIBRILLATION WITH RAPID VENTRICULAR RESPONSE INCOMPLETE RIGHT BUNDLE BRANCH BLOCK [90+ ms QRS DURATION, TERMINAL R IN V1/V2, 40+ ms S IN I/aVL/V4/V5/V6] NONSPECIFIC ST & T-WAVE ABNORMALITY Compared to ECG 06/25/2023 19:58:20 Sinus rhythm no longer present T-wave abnormality still present Electronically Signed On 06-26-2023 8:44:06 CDT by Royer Dennison M.D. [id number]
--- NOTE | 2023-06-26 10:36 | PC.NURSE ---
Dr. Gallo ordered a one time dose of Tikosyn 125mcg due to patient heart rate increase this morning.
--- NOTE | 2023-06-26 11:27 | PC.SOCIAL ---
IMM Updated Updated pt's daughter on IMM. No questions voiced. Provided pt a copy. Initialed, dated, & timed copy in chart.
[2023-06-26 11:41] LABS: Glucose Point of Care 340 mg/dL (70-110)
--- NOTE | 2023-06-26 15:05 | P.PN_ITS ---
Subjective Subjective: Patient with chronic atrial fibrillation. Patient was cardioverted in October. But has resumed A-fib. He presented with A-fib with RVR. 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 He was placed on Tikosyn and successfully cardioverted on Saturday, June 23, 2023. He has been on prednisone 40 mg and meth the muscle as an outpatient. Thyroid ultrasound was d one in the hospital. His renal function continues to worsen due to diuretic therapy. And he likely needs a sleep study. 06/24/23: Last night patient took off his oxygen at 3 L to go to the bathroom and became acutely short of breath. Chest x-ray was done at that time patient has chronic fibrosis as well as chronic areas of atelectasis. There is no change in chest x-ray. This a.m. patient continues to complain of shortness of breath but states that it is better. There is a concern for pneumonia.Patient has no cough and therefore no sputum production. Patient denies fevers chills or sweats. No documented elevated temperature. Patient and daughter report this occurred after last cardioversion but not as severe. 10::2022: Feeling better today. Complaints of nasal stuffiness due to oxygen feels better on humidified air. 06/26/2023. This a.m. he had a period of A-fib with RVR. I believe he was given his usual dose of Tikosyn and he reconverted. He had no symptoms with this tachycardia. He feels well is breathing better only complains of nasal congestion from the oxygen. Vitals/I&O/Wt Last Vital Signs Temp 97.4 F L 06/26/23 11:58 Pulse 74 06/26/23 14:58 Resp 18 06/26/23 14:58 BP 121/65 06/26/23 11:58 Pulse Ox 95 06/26/23 14:58 O2 Del Method Nasal Cannula 06/26/23 14:58 O2 Flow Rate 3 06/26/23 14:58 06/26/23 06/26/23 06/26/23 06:59 14:59 22:59 Intake Total 500 / 1100 240 / 240 Balance 500 / 600 240 / 240 Physical Exam Narrative: Elderly obese male in no distress Neuro: Alert and oriented x3 exam is nonfocal Heart regular rate and rhythm. No loud murmur no gallops clicks or rubs Lungs: Diminished throughout however increased breath sounds from previous no wheezes rales or rhonchi. Abdomen: Obese soft nontender nondistended positive bowel sounds Extremities: +1 pitting edema chcf to knee-this is improved. Data 06/25/23 08:15 06/26/23 06:49 A&P Assessment and plan (1) Atrial flutter: A-fib flutter. Initially with RVR. Patient has been successfully cardioverted and placed on Tikosyn 06/26/2023: Had a short episode of A-fib with RVR today but this again converted. (2) Essential hypertension: Fair control on current regimen (3) Hyperthyroidism: Secondary to amiodarone toxicity patient on prednisone and methimazole Currently stable (4) Acute kidney injury superimposed on chronic kidney disease: Marked improvement of serum creatinine today. Would still recommend nephrology outpatient consult. (5) Goiter: Ultrasound of thyroid: IMPRESSION: 1. ? Heterogeneous, enlarged right thyroid lobe. 2. ? Prominent nodules in the left thyroid lobe and isthmus. Recommend fine-needle aspiration of these nodules for definitive characterization. 3. ? No thyroid hyperemia is seen. Per Dr. Siddiqui (6) Type 2 diabetes mellitus: Plan Acute respiratory failure stable on 3 L oxygen due to decompensated congestive heart failure with mildly reduced ejection fraction due to tachycardic induced cardiomyopathy. Patient is improving with treatment for CHF with Lasix. Improved urine output cardiology is going to continue current Lasix dose of 40 IV plus metolazone. Renal functions have improved. Per patient cardiology would like to keep until tomorrow. With plans for discharge. Will order saline nasal spray for nasal congestion. Attestations Medical Necessity Statement*: Requires further hospitalization for management of acute respiratory failure requiring oxygen post cardioversion, acute on chronic kidney disease and amiodarone-induced hyperthyroidism Coding Level of Care Code Acute Code for [facility] Fwd Diagnoses Atrial flutter I48.92 Essential hypertension I10 Hyperthyroidism E05.90 Acute kidney injury superimposed on chronic kidney disease N17.9; N18.9 Goiter E04.9 Type 2 diabetes mellitus E11.9
[2023-06-26] MEDS: FUROsemide 40 mg Tablet PO (15:21)
[2023-06-26] MEDS: saline nasal spray 44mL Btl 1 SPRAY NASAL (15:21)
[2023-06-26 16:40] LABS: Glucose Point of Care 261 mg/dL (70-110)
[2023-06-26] MEDS: tamsulosin 0.4 mg Capsule PO (17:04)
--- NOTE | 2023-06-26 19:58 | PC.NURSE ---
Patients daughter comes to the nurses station and said that she noticed that the patients heart rate just started going up again and if a nurse would come down. Nurse comes into room, patient is sleeping in room. He is in Afib, with vitals of o2 94%, HR of 120-150, BP of 114/73. Patient is woken up and he said he is not having any chest pain or shortness of breath. Provider is contacted and gave the order to contact Dr. Gallo. The night nurse is contacting Dr. Gallo.
--- NOTE | 2023-06-26 20:04 | PC.NURSE ---
Dr Gallo notified, gave order for 25mg metoprolol 2100 dose to be given now, order for PRN 25 mg metoprolol q4HR max dose of 2, bp > 100 systolic given via telephone read back order.
[2023-06-26 20:56] LABS: Glucose Point of Care 530 mg/dL (70-110)
[2023-06-26] MEDS: budesonide 0.5 mg/2 mL Neb INHALATION (21:12)
--- NOTE | 2023-06-26 22:00 | PC.NURSE ---
Patient converted to sinus at 2130. heart rate running at 70.
[2023-06-27] VITALS (30 sets, daily range): BP systolic 114–137; BP diastolic 55–70; PULSE 62–82; RESP 13–31; TEMP 36.3–37.1; O2SAT 85–98
[2023-06-27 05:02] LABS: Basophils % 0.1 %; Eosinophils # 0.1 10^3/uL (0.0-0.8); Eosinophils % 0.7 %; Hematocrit 32.1 % (37-53); Lymphocytes # 1.2 10^3/uL (0.8-4.8); Lymphocytes % 11.3 %; Mean Corpuscular HGB Conc 32.4 g/dL (30-55); Mean Corpuscular Hemoglobin 29.1 pg (27-33); Mean Corpuscular Volume 89.9 fl (82-101); Mean Platelet Volume 10.7 fL (7.4-10.4); Monocytes # 1.2 10^3/uL (0.2-0.9); Monocytes % 11.4 %; Neutrophils # 7.79 10^3/uL (1.8-7.7); Neutrophils % 75.8 %; Nucleated Red Blood Cells % 0 %; Platelet Count 256 10^3/cmm (157-399); Red Blood Count 3.57 10^6/uL (3.85-5.65); Red Cell Distribution Width 13.3 % (12.1-15.1); White Blood Count 10.27 10^3/uL (3.29-11.43)
[2023-06-27 05:34] LABS: Alanine Aminotransferase 50 U/L (0-41); Albumin Level 3.6 g/dL (3.5-5.2); Alkaline Phosphatase 122 U/L (40-130); Anion Gap 17.2 (5-19); Aspartate Amino Transferase 31 U/L (0-40); Calcium 9.2 mg/dL (8.5-10.5); Carbon Dioxide 29 mmol/L (22-29); Chloride 93 mmol/L (98-107); Globulin 2.6 g/dL (1.3-4.6); Glucose 187 mg/dL (65-115); Magnesium 1.8 mg/dL (1.7-2.3); NT Pro B Type Natriuretic Pept 3694 pg/mL (0-450); Osmolality Calculated 310 mOsm/kg (285-295); Potassium 4.2 mmol/L (3.5-5.1); Sodium 135 mmol/L (136-145); Total Bilirubin 0.8 mg/dL (0.15-1.2); Total Protein 6.2 g/dL (6.6-8.7)
[2023-06-27 05:45] LABS: Blood Urea Nitrogen 82 mg/dL (8-23)
[2023-06-27 06:30] LABS: Glucose Point of Care 160 mg/dL (70-110)
[2023-06-27] MEDS: insulin lispro 100 unit/1 mL SUBCUT ×4 (08:02→21:29)
[2023-06-27] MEDS: insulin glargine 100 units/1 mL 20 UNIT SUBCUT ×2 (08:02→17:22)
[2023-06-27] MEDS: PARoxetine 20 mg Tablet 40 MG PO (08:03)
[2023-06-27] MEDS: guaiFENesin 600 mg Tablet PO ×2 (08:03→17:22)
[2023-06-27] MEDS: predniSONE 20 mg Tablet 40 MG PO (08:03)
[2023-06-27] MEDS: gabapentin 300 mg Capsule 600 MG PO ×2 (08:03→17:22)
[2023-06-27] MEDS: metoprolol tartrate 25 mg Tablet PO ×2 (08:03→21:28)
[2023-06-27] MEDS: FUROsemide 40 mg Tablet PO ×2 (08:03→15:22)
[2023-06-27] MEDS: docusate sodium 100 mg Capsule 200 MG PO ×2 (08:04→17:22)
[2023-06-27] MEDS: apixaban 5 mg Tablet PO ×2 (08:04→17:22)
[2023-06-27] MEDS: atorvastatin 40 mg Tablet 80 MG PO (08:04)
[2023-06-27] MEDS: ezetimibe 10 mg Tablet PO (08:04)
[2023-06-27] MEDS: allopurinol 100 mg Tablet 150 MG PO (08:04)
[2023-06-27] MEDS: aspirin 81 mg EC Tablet PO (08:04)
[2023-06-27] MEDS: budesonide 0.5 mg/2 mL Neb INHALATION ×2 (08:36→20:20)
[2023-06-27] MEDS: levalbuterol 1.25 mg/3 mL Neb INHALATION ×3 (08:36→20:21)
--- NOTE | 2023-06-27 09:53 | ECG_ITS ---
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 Measurements Intervals [place] Rate: 66 P: 97 NC: 183 QRS: 72 QRSD: 109 T: 26 QT: 435 QTc: 459 Interpretive Statements SINUS RHYTHM INCOMPLETE RIGHT BUNDLE BRANCH BLOCK [90+ ms QRS DURATION, TERMINAL R IN V1/V2, 40+ ms S IN I/aVL/V4/V5/V6] NONSPECIFIC ST & T-WAVE ABNORMALITY Compared to ECG 06/26/2023 08:30:29 Atrial fibrillation no longer present T-wave abnormality still present Electronically Signed On 06-27-2023 11:31:54 CDT by Glory Gallo M.D. [id number]
[2023-06-27] MEDS: methIMAzole 5 MG Tablet 30 MG PO (10:21)
--- NOTE | 2023-06-27 11:39 | P.PN_ITS ---
Subjective Subjective: He went back into atrial flutter with RVR last night and received metoprolol 25 mg PO x 1. Excellent UO Medications: Reviewed: Yes Vitals/I&O/Wt Last Vital Signs Temp 98.7 F 06/27/23 11:20 Pulse 64 06/27/23 11:20 Resp 17 06/27/23 11:20 BP 120/57 06/27/23 11:20 Pulse Ox 94 06/27/23 11:20 O2 Del Method Room Air 06/27/23 11:20 O2 Flow Rate 2 06/27/23 09:13 06/26/23 06/27/23 06/27/23 22:59 06:59 14:59 Intake Total 120 / 360 480 / 840 360 / 360 Output Total 420 / 420 840 / 1260 Balance -300 / -60 -360 / -420 360 / 360 Physical Exam Const: COMMON NORMALS: no acute distress, patient oriented x3 and alert GENERAL APPEARANCE: cooperative, comfortable, well kempt and well hydrated HENMT: COMMON NORMALS: hearing grossly normal bilaterally and external ears normal FACE & SINUS: normal facial exam EXTERNAL EAR: Yes external ears normal Eye: COMMON NORMALS: EOMs intact bilaterally and no scleral icterus GENERAL EYE: appearance normal, both eyes and all related structures ALIGNMENT: Yes alignment normal Neck/C-Spine: COMMON NORMALS: supple and no JVD GENERAL: Yes normal visual inspection CAROTIDS: Yes normal carotid upstroke Chest: COMMONS NORMALS: normal inspection of the chest and normal palpation of entire chest wall CHEST: Yes Symmetrical chest wall rise and No tenderness Resp: COMMON NORMALS: clear to auscultation bilaterally EFFORT & INSPECTION: Yes able to speak in complete sentences, No tachypneic, Yes respiratory distress, No pursed lip breathing, No labored and No Actively coughing AUSCULTATION: clear to auscultation bilaterally, no crackles, no rales, no rhonchi and no wheezes OTHER: tachypnea resolved Cardio: COMMON NORMALS: no JVD, regular rate, regular rhythm, S1 normal heart sound present, S2 normal heart sound present and Peripheral pulses 2+ throughout PALPATION: normal PMI RATE: regular rate and tachycardic RHYTHM: r egular rhythm HEART SOUNDS: S1 normal heart sound present, S2 normal heart sound present, no click, no gallops and no murmurs BRUITS: no carotid bruits PERIPHERAL PULSES: Peripheral pulses 2+ throughout, radial pulses present, posterior tibial pulses present and dorsalis pedis present GI: COMMON NORMALS: Soft to palpation AUSCULTATION: Yes normoactive bowel sounds PALPATION: Yes Soft to palpation, No Tenderness to palpation present (GI), No Guarding due to palpation present (GI) and No Rigid due to palpation Extremity: GENERAL: No cyanosis, No edema (trace) and No pallor Neuro: COMMON NORMALS: patient oriented x3 and no focal motor deficits SENSORIUM/ORIENTATION: Yes alert Psych: COMMON NORMALS: Normal thought process present and speech normal APPEARANCE: Yes well kempt SPEECH: Yes normal speech MOOD & AFFECT: Yes euthymic mood THOUGHT PROCESS: Normal thought process present THOUGHT CON TENT: Yes Normal thought content present Data 06/27/23 04:29 06/27/23 04:29 A&P Assessment and plan (1) CHF (congestive heart failure), NYHA class III: HFmrEF; tachycardia induced cardiomyopathy continue lasix 40 PO BID (2) Atrial flutter: Paroxysmal atrial flutter with RVR -off amiodarone -Rate control did not work; BP did not allow med titration - He was not a candidate for sotalol given CrCl<40 (not a great agent at this time given FABI on CKD). -will benefit from ablation as an outpatient -s/p cardioversion with restorationism of SR -continue Eliquis and metoprolol tar 25 mg twice a day. Continue Tikosyn. 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
[2023-06-27 11:48] LABS: Glucose Point of Care 330 mg/dL (70-110)
--- NOTE | 2023-06-27 16:37 | P.PN_ITS ---
Subjective Subjective: Patient with chronic atrial fibrillation. Patient was cardioverted in October. But has resumed A-fib. He presented with A-fib with RVR. 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 He was placed on Tikosyn and successfully cardioverted on Saturday, June 23, 2023. He has been on prednisone 40 mg and meth the muscle as an outpatient. Thyroid ultrasound was d one in the hospital. His renal function continues to worsen due to diuretic therapy. And he likely needs a sleep study. 06/24/23: Last night patient took off his oxygen at 3 L to go to the bathroom and became acutely short of breath. Chest x-ray was done at that time patient has chronic fibrosis as well as chronic areas of atelectasis. There is no change in chest x-ray. This a.m. patient continues to complain of shortness of breath but states that it is better. There is a concern for pneumonia.Patient has no cough and therefore no sputum production. Patient denies fevers chills or sweats. No documented elevated temperature. Patient and daughter report this occurred after last cardioversion but not as severe. 10::2022: Feeling better today. Complaints of nasal stuffiness due to oxygen feels better on humidified air. 06/26/2023. This a.m. he had a period of A-fib with RVR. I believe he was given his usual dose of Tikosyn and he reconverted. He had no symptoms with this tachycardia. He feels well is breathing better only complains of nasal congestion from the oxygen. 06/27/2023. Patient is doing well he has been weaned down to 2 L. He is maintained in normal sinus rhythm on the increased dose of Tikosyn. Patient needs to be observed 1 more day evaluating for QT interval. Patient denies any shortness of breath Vitals/I&O/Wt Last Vital Signs Temp 98.7 F 06/27/23 11:20 Pulse 67 06/27/23 16:00 Resp 21 H 06/27/23 16:00 BP 136/70 06/27/23 16:00 Pulse Ox 94 06/27/23 16:00 O2 Del Method Nasal Cannula 06/27/23 16:00 O2 Flow Rate 2 06/27/23 16:00 06/27/23 06/27/2306/27/23 06:59 14:59 22:59 Intake Total 480 / 840 560 / 560 Output Total 840 / 1260 Balance -360 / -420 560 / 560 Physical Exam Narrative: Elderly obese male in no distress Neuro: Alert and oriented x3 exam is nonfocal Heart regular rate and rhythm. No loud murmur no gallops clicks or rubs Lungs: Diminished throughout, improved aeration,no wheezes rales or rhonchi. Abdomen: Obese soft nontender nondistended positive bowel sounds Extremities: No edema Data 06/27/23 04:29 06/27/23 04:29 A&P Assessment and plan (1) Atrial flutter: A-fib flutter. Initially with RVR. Patient has been successfully cardioverted and placed on Tikosyn 06/26/2023: Had a short episode of A-fib with RVR today but this again converted with extra dose of metoprolol and increasing Tikosyn.. 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 (5) Goiter: Ultrasound of thyroid: IMPRESSION: 1. ? Heterogeneous, enlarged right thyroid lobe. 2. ? Prominent nodules in the left thyroid lobe and isthmus. Recommend fine-needle aspiration of these nodules for definitive characterization. 3. ? No thyroid hyperemia is seen. Per Dr. Siddiqui (6) Type 2 diabetes mellitus: Plan Acute respiratory failure improved, now on 2 L oxygen. Home oxygen study revealed the patient can be maintained on 2 L at rest and with ambulation. Decompensated congestive heart failure with mildly reduced ejection fraction due to tachycardic induced cardiomyopathy. Patient is improving with treatment for CHF with Lasix and arrhythmia control. cardiology ordered Lasix and metolazone. Renal functions have improved overall Since Tikosyn was increased yesterday need to monitor for QT interval and if remains stable may DC in a.m. Attestations Medical Necessity Statement*: Requires further hospitalization for stabilization on antiarrhythmic. Coding Level of Care Code Acute Code for [facility] Diagnoses Atrial flutter I48.92 Essential hypertension I10 Hyperthyroidism E05.90 Acute kidney injury superimposed on chronic kidney disease N17.9; N18.9 Goiter E04.9 Type 2 diabetes mellitus E11.9
[2023-06-27 16:53] LABS: Glucose Point of Care 388 mg/dL (70-110)
[2023-06-27] MEDS: tamsulosin 0.4 mg Capsule PO (17:22)
[2023-06-27 21:00] LABS: Glucose Point of Care 465 mg/dL (70-110)
--- NOTE | 2023-06-27 21:36 | ECG_ITS ---
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 Measurements Intervals [place] Rate: 73 P: 91 MA: 184 QRS: 43 QRSD: 97 T: 42 QT: 365 QTc: 402 Interpretive Statements SINUS RHYTHM NONSPECIFIC ST & T-WAVE ABNORMALITY Compared to ECG 06/27/2023 10:18:06 Incomplete right bundle-branch block no longer present T-wave abnormality still present Electronically Signed On 06-28-2023 7:11:45 CDT by Glory Gallo M.D. [email or web address]store/[id number]
[2023-06-28] VITALS (23 sets, daily range): BP systolic 104–148; BP diastolic 59–80; PULSE 61–130; RESP 13–28; TEMP 36.4–36.9; O2SAT 93–98
[2023-06-28] MEDS: levalbuterol 1.25 mg/3 mL Neb INHALATION ×2 (02:26→08:36)
[2023-06-28 05:23] LABS: Basophils % 0.1 %; Eosinophils # 0.1 10^3/uL (0.0-0.8); Eosinophils % 0.7 %; Hematocrit 34.4 % (37-53); Lymphocytes # 1.1 10^3/uL (0.8-4.8); Lymphocytes % 8.2 %; Mean Corpuscular HGB Conc 32.6 g/dL (30-55); Mean Corpuscular Hemoglobin 28.6 pg (27-33); Mean Platelet Volume 10.8 fL (7.4-10.4); Monocytes # 1.1 10^3/uL (0.2-0.9); Neutrophils # 11.09 10^3/uL (1.8-7.7); Neutrophils % 82.1 %; Nucleated Red Blood Cells % 0 %; Platelet Count 245 10^3/cmm (157-399); Red Blood Count 3.91 10^6/uL (3.85-5.65); Red Cell Distribution Width 13.2 % (12.1-15.1); White Blood Count 13.52 10^3/uL (3.29-11.43)
[2023-06-28 05:45] LABS: Alanine Aminotransferase 62 U/L (0-41); Albumin Level 3.6 g/dL (3.5-5.2); Alkaline Phosphatase 122 U/L (40-130); Anion Gap 14.3 (5-19); Aspartate Amino Transferase 33 U/L (0-40); Calcium 9.1 mg/dL (8.5-10.5); Carbon Dioxide 31 mmol/L (22-29); Chloride 92 mmol/L (98-107); Globulin 2.8 g/dL (1.3-4.6); Glucose 332 mg/dL (65-115); Magnesium 1.8 mg/dL (1.7-2.3); Osmolality Calculated 314 mOsm/kg (285-295); Potassium 4.3 mmol/L (3.5-5.1); Sodium 133 mmol/L (136-145); Total Bilirubin 0.7 mg/dL (0.15-1.2); Total Protein 6.4 g/dL (6.6-8.7)
[2023-06-28 05:49] LABS: Blood Urea Nitrogen 82 mg/dL (8-23)
--- NOTE | 2023-06-28 05:55 | PC.NURSE ---
Patient went back into A-fib at approximately 04:40. Gave dose of tikosyn @ 05:12. As of 599 patient is still in A-fib.
--- NOTE | 2023-06-28 06:12 | PM.PN ---
Subjective Subjective: Doing well and eager to go home went briefly into atrial flutter and then converted after Tikosyn dose Medications: Reviewed: Yes Vitals/I&O/Wt Last Vital Signs Temp 98.4 F 06/28/23 04:00 Pulse 106 H 06/28/23 04:00 Resp 25 H 06/28/23 04:00 BP 104/59 06/28/23 04:00 Pulse Ox 94 06/28/23 04:00 O2 Del Method Nasal Cannula 06/28/23 04:00 O2 Flow Rate 2 06/28/23 02:27 06/27/23 06/27/23 06/28/23 14:59 22:59 06:59 Intake Total 560 / 560 1400 / 1960 Output Total 600 / 600 Balance 560 / 560 -600 / -40 1400 / 1360 Physical Exam Const: COMMON NORMALS: no acute distress, patient oriented x3 and alert GENERAL APPEARANCE: cooperative, comfortable, well kempt and well hydrated HENMT: COMMON NORMALS: hearing grossly normal bilaterally and external ears normal FACE & SINUS: normal facial exam EXTERNAL EAR: Yes external ears normal Eye: COMMON NORMALS: EOMs intact bilaterally and no scleral icterus GENERAL EYE: appearance normal, both eyes and all related structures ALIGNMENT: Yes alignment normal Neck/C-Spine: COMMON NORMALS: supple and no JVD GENERAL: Yes normal visual inspection CAROTIDS: Yes normal carotid upstroke Chest: COMMONS NORMALS: normal inspection of the chest and normal palpation of entire chest wall CHEST: Yes Symmetrical chest wall rise and No tenderness Resp: COMMON NORMALS: clear to auscultation bilaterally EFFORT & INSPECTION: Yes able to speak in complete sentences, No tachypneic, Yes respiratory distress, No pursed lip breathing, No labored and No Actively coughing AUSCULTATION: clear to auscultation bilaterally, no crackles, no rales, no rhonchi and no wheezes OTHER: tachypnea resolved Cardio: COMMON NORMALS: no JVD, regular rate, regular rhythm, S1 normal heart sound present, S2 normal heart sound present and Peripheral pulses 2+ throughout PALPATION: normal PMI RATE: regular rate RHYTHM: regular rhythm HEART SOUNDS: S1 normal heart sound present, S2 normal heart sound present, no click, no gallops and no murmurs BRUITS: no carotid bruits PERIPHERAL PULSES: Peripheral pulses 2+ throughout, radial pulses present, posterior tibial pulses present and dorsalis pedis present GI: COMMON NORMALS: Soft to palpation AUSCULTATION: Yes normoactive bowel sounds PALPATION: Yes Soft to palpation, No Tenderness to palpation present (GI), No Guarding due to palpation present (GI) and No Rigid due to palpation Extremity: GENERAL: No cyanosis, No edema and No pallor Neuro: COMMON NORMALS: patient oriented x3 and no focal motor deficits SENSORIUM/ORIENTATION: Yes alert Psych: COMMON NORMALS: Normal thought process present and speech normal APPEARANCE: Yes well kempt SPEECH: Yes normal speech MOOD & AFFECT: Yes euthymic mood THOUGHT PROCESS: Normal thought process present THOUGHT CONTENT: Yes Normal thought content present Data 06/28/23 04:43 06/28/23 04:43 A&P Assessment and plan (1) CHF (congestive heart failure), NYHA class III: HFmrEF; tachycardia induced cardiomyopathy will hold lasix today, start on lasix 40 mg PO X 1 on discharge. -f/u BMP and EKG next week -f/u with Pari next week (2) Atrial flutter: Paroxysmal atrial flutter with RVR -off amiodarone -Rate control did not work; BP did not allow med titration - He was not a candidate for sotalol given CrCl<40 (not a great agent at this time given FABI on CKD). -will benefit from ablation as an outpatient -s/p cardioversion with [facility] of SR -continue Eliquis and metoprolol tar 25 mg twice a day. Continue Tikosyn on 250 mcg Q 12 hr converted him to SR -acceptable QTC. No ventricular arrhythmias. 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 Coding Level of Care Code 49606 Diagnoses CHF (congestive heart failure), NYHA class III I50.9 Atrial flutter I48.92 FABI (acute kidney injury) N17.9 Hyperthyroidism E05.90 Hyperlipidemia E78.5
[2023-06-28] MEDS: sodium chloride 0.9% 250 ML IV (06:56)
--- NOTE | 2023-06-28 07:00 | PC.NURSE ---
patient converted into sinus @0652. HR is running 65bpm
[2023-06-28 07:01] LABS: Glucose Point of Care 282 mg/dL (70-110)
--- NOTE | 2023-06-28 07:40 | ECG_ITS ---
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 Measurements Intervals [place] Rate: 62 P: 95 UT: 185 QRS: 59 QRSD: 122 T: -32 QT: 456 QTc: 466 Interpretive Statements SINUS RHYTHM POSSIBLE RIGHT VENTRICULAR CONDUCTION DELAY [RSR (QR) IN V1/V2] NONSPECIFIC ST & T-WAVE ABNORMALITY PROLONGED QT INTERVAL Compared to ECG 06/27/2023 21:36:06 Prolonged QT interval now present T-wave abnormality still present Electronically Signed On 06-28-2023 16:27:08 CDT by Glory Gallo M.D. [id number]
[2023-06-28] MEDS: insulin glargine 100 units/1 mL 20 UNIT SUBCUT (08:16)
[2023-06-28] MEDS: allopurinol 100 mg Tablet 150 MG PO (08:16)
[2023-06-28] MEDS: gabapentin 300 mg Capsule 600 MG PO (08:16)
[2023-06-28] MEDS: predniSONE 20 mg Tablet 40 MG PO (08:16)
[2023-06-28] MEDS: apixaban 5 mg Tablet PO (08:16)
[2023-06-28] MEDS: insulin lispro 100 unit/1 mL SUBCUT ×2 (08:16→12:43)
[2023-06-28] MEDS: docusate sodium 100 mg Capsule 200 MG PO (08:17)
[2023-06-28] MEDS: methIMAzole 5 MG Tablet 30 MG PO (08:17)
[2023-06-28] MEDS: PARoxetine 20 mg Tablet 40 MG PO (08:17)
[2023-06-28] MEDS: aspirin 81 mg EC Tablet PO (08:17)
[2023-06-28] MEDS: metoprolol tartrate 25 mg Tablet PO (08:17)
[2023-06-28] MEDS: guaiFENesin 600 mg Tablet PO (08:17)
[2023-06-28] MEDS: ezetimibe 10 mg Tablet PO (08:17)
[2023-06-28] MEDS: atorvastatin 40 mg Tablet 80 MG PO (08:17)
[2023-06-28] MEDS: budesonide 0.5 mg/2 mL Neb INHALATION (08:36)
[2023-06-28 11:04] LABS: Glucose Point of Care 315 mg/dL (70-110)
--- NOTE | 2023-06-28 11:15 | PM.DCS ---
Discharge Providers Date of Admission: 06/17/23 11:20 Date of Discharge: June 28, 2023 Attending Provider at Admission: Wes Snowden MD Attending Provider at Discharge: Kaveh Chicas DO Primary Care Provider: Luana Villegas MD Diagnoses at Discharge Discharge Diagnosis (1) CHF (congestive heart failure), NYHA class III: Status: Acute (2) Atrial flutter: Status: Acute (3) FABI (acute kidney injury): Status: Acute (4) Hyperthyroidism: Status: Chronic (5) Hyperlipidemia: Status: Acute Reason for Visit Reason for Visit: Chest Pain Brief History: Patient with chronic atrial fibrillation.? Patient was cardioverted in October.? But has resumed A-fib.? He presented with A-fib with RVR.? He was found to have amiodarone induced hyperthyroidism prior to admission. He was started on Tapazole for hyperthyroidism. Hospital Course Hospital Course H e was placed on Tikosyn and successfully cardioverted on Friday, June 23, 2023.?? Thyroid ultrasound was done in the hospital.? His renal function continues to worsen due to diuretic therapy.? And he likely needs a sleep study.? 06/24/23: Last night patient took off his oxygen at 3 L to go to the bathroom and became acutely short of breath.? Chest x-ray was done at that time patient has chronic fibrosis as well as chronic areas of atelectasis.? There is no change in chest x-ray.? This a.m. patient continues to complain of shortness of breath but states that it is better.? There is a concern for pneumonia.Patient has no cough and therefore no sputum production.? Patient denies fevers chills or sweats.? No documented elevated temperature.? Patient and daughter report this occurred after last cardioversion but not as severe. 10:24:2022: Feeling better today.? Complaints of nasal stuffiness due to oxygen feels better on humidified air. 06/26/2023.? This a.m. he had a period of A-fib with RVR.? I believe he was given his usual dose of Tikosyn and? he reconverted.? He had no symptoms with this tachycardia.? He feels well is breathing better only complains of nasal congestion from the oxygen. 06/27/2023.? Patient is doing well he has been weaned down to 2 L.? He is maintained in normal sinus rhythm on the increased dose of Tikosyn.? Patient needs to be observed 1 more day evaluating for QT interval.? Patient denies any shortness of breath 06/28/2023. QT interval is 0.46, it has been 0.459 while elevated not deviate from previous lower dose of Tikosyn. Patient is stable and improved condition to discharge home. He will be sent home on Lasix once daily Tikosyn 250 mcg twice daily and metoprolol tartrate 25 mg twice daily Physical Exam Narrative: Elderly obese male in no distress Neuro: Alert and oriented x3 exam is nonfocal Heart regular rate and rhythm. No loud murmur no gallops clicks or rubs Lungs: Diminished throughout, improved aeration,no wheezes rales or rhonchi. Abdomen: Obese soft nontender nondistended positive bowel sounds Extremities: No edema Discharge Data Studies Completed and Pending Completed Studies During Hospitalization Category Date Time Status XR chest 1V portable [id number] Stat Exams 06/17/23 09:51 Completed XR chest 1V portable [id number] Stat Exams 06/19/23 18:16 Completed XR chest 1V portable [id number] Stat Exams 06/23/23 23:23 Completed CV. echo wo/w contrast [id number] Routine Ultrasound 06/20/23 07:27 Completed US renal BI* [id number] Routine Ultrasound 06/19/23 07:20 Completed US thyroid [id number] Routine Ultrasound 06/22/23 10:50 Completed Pending at discharge Category Date Time Status CBC Auto Diff [Complete Blood Count w/Auto] AM LABS Lab 06/29/23 04:00 Ordered CMP [Comprehensive Metabolic Panel] AM LABS Lab 06/29/23 04:00 Ordered Magnesium AM LABS Lab 06/29/23 04:00 Ordered Radiology Impressions Thyroid Ultrasound 06/22/23 10:50 IMPRESSION: 1. Heterogeneous, enlarged right thyroid lobe. 2. Prominent nodules in the left thyroid lobe and isthmus. Recommend fine-needle aspiration of these nodules for definitive characterization. 3. No thyroid hyperemia is seen. Chest X-Ray 06/23/23 23:23 IMPRESSION: 1. Accentuated cardiac silhouette size and vascularity. See discussion above. 2. Stable left basilar opacity/pleural effusion. New ill-defined patchy opacity in the right mid lung as described. Laboratory Results WBC 13.52 10^3/uL (3.29-11.43) H 06/28/23 04:43 RBC 3.91 10^6/uL (3.85-5.65) 06/28/23 04:43 Hgb 11.20 g/dL (11.27-16.99) L 06/28/23 04:43 Hct 34.4 % (37-53) L 06/28/23 04:43 MCV 88.0 fl (82-101) 06/28/23 04:43 MCH 28.6 pg (27-33) 06/28/23 04:43 MCHC 32.6 g/dL (30-55) 06/28/23 04:43 RDW 13.2 % (12.1-15.1) 06/28/23 04:43 Plt Count 245 10^3/cmm (157-399) 06/28/23 04:43 MPV 10.8 fL (7.4-10.4) H 06/28/23 04:43 Neut % (Auto) 82.1 % 06/28/23 04:43 Lymph % (Auto) 8.2 % 06/28/23 04:43 [place] % (Auto) 8.0 % 06/28/23 04:43 Eos % (Auto) 0.7 % 06/28/23 04:43 Baso % (Auto) 0.1 % 06/28/23 04:43 Neut # (Auto) 11.09 10^3/uL (1.8-7.7) H 06/28/23 04:43 Lymph # (Auto) 1.1 10^3/uL (0.8-4.8) 06/28/23 04:43 [place] # (Auto) 1.1 10^3/uL (0.2-0.9) H 06/28/23 04:43 Eos # (Auto) 0.1 10^3/uL (0.0-0.8) 06/28/23 04:43 Baso # (Auto) 0.0 10^3/uL (0.0-0.1) 06/28/23 04:43 Nucleated RBC % (auto) 0 % 06/28/23 04:43 Nucleated RBCs # 0.0 /100WBC 06/28/23 04:43 PT 17.50 SECONDS (12.1-14.9) H 06/17/23 09:55 INR 1.39 (0.8-1.2) H 06/17/23 09:55 APTT 33.6 SECONDS (23.9-36.7) 06/17/23 09:55 Specimen Type Arterial 06/21/23 20: Sample Site Brachial, right 06/21/23 20: ABG pH 7.33 (7.35-7.45) L 06/21/23 20: ABG pCO2 43.9 mmHg (35-45) 06/21/23 20: ABG pO2 72.4 mmHg (80.0-100.0) L 06/21/23 20: ABG HCO3 23.2 mmol/L (22-26) 06/21/23 20: ABG O2 Saturation 95.4 06/21/23 20: ABG Base Excess -2.7 mmol/L (-2.0-2.0) L 06/21/23 20: Ashish Test N/a 06/21/23 20: A-a O2 Gradient 2.9 mmHg (5-10) L 06/21/23 20: Hematocrit 32.6 % (42-52) L 06/21/23 20:31 Hgb O2 Saturation 93.2 % (95-100) L 06/21/23 20: Carboxyhemoglobin 2.0 %THgb (0.4-20.1) 06/21/23 20: Methemoglobin 0.4 % (0.4-1.5) 06/21/23 20: Total Hemoglobin 10.6 g/dL (14-18) L 06/21/23 20: Sodium 130.0 mmol/L (131-143) L 06/21/23 20: Potassium 4.6 mmol/L (3.5-5.0) 06/21/23 20: Glucose 247.0 mg/dL (70-115) H 06/21/23 20: Ionized Calcium 1.2 mmol/L (1.1-1.4) 06/21/23 20: O2 Delivery Device Nc 06/21/23 20: O2 Liters/Min 2.0 % 06/21/23 20: Outpatient Admitting Clerk ID [email or web address] 06/21/23 20:31 Sodium 133 mmol/L (136-145) L 06/28/23 04:43 Potassium 4.3 mmol/L (3.5-5.1) 06/28/23 04:43 Chloride 92 mmol/L (98-107) L 06/28/23 04:43 Carbon Dioxide 31 mmol/L (22-29) H 06/28/23 04:43 Anion Gap 14.3 (5-19) 06/28/23 04:43 BUN 82 mg/dL (8-23) H* 06/28/23 04:43 Creatinine 2.3 mg/dL (0.7-1.2) H 06/28/23 04:43 GFR Calculation Not Reportable 06/28/23 04:43 Glucose 332 mg/dL (65-115) H 06/28/23 04:43 POC Glucose 315 mg/dL (70-110) H 06/28/23 10:50 Calculated Osmolality 314 mOsm/kg (285-295) H 06/28/23 04:43 Calcium 9.1 mg/dL (8.5-10.5) 06/28/23 04:43 Magnesium 1.8 mg/dL (1.7-2.3) 06/28/23 04:43 Iron 17 ug/dL (59-158) L 06/22/23 04:00 TIBC 181 mcg/dl 06/22/23 04:00 % Saturation 9.3 % (20-50) L 06/22/23 04:00 Unsat Iron Binding 164 ug/dL (112-347) 06/22/23 04:00 Total Bilirubin 0.7 mg/dL (0.15-1.2) 06/28/23 04:43 AST 33 U/L (0-40) 06/28/23 04:43 ALT 62 U/L (0-41) H 06/28/23 04:43 Alkaline Phosphatase 122 U/L (40-130) 06/28/23 04:43 Troponin T Baseline 84 ng/L (0-15) H 06/17/23 09:55 Troponin T 120 Minute 71.11 ng/L (0-15) H 06/17/23 12:04 Delta Troponin T -12.89 ABS# (0-10) L 06/17/23 12:04 Troponin T Hi Sens 6Hr 64.83 ng/L (0-15) H 06/17/23 16:10 Troponin T Hi Sens 6Hr Delta -19.17 ng/L (0-12) L 06/17/23 16:10 NT-Pro-B Natriuret Pep 3694 pg/mL (0-450) H 06/27/23 04:29 Total Protein 6.4 g/dL (6.6-8.7) L 06/28/23 04:43 Albumin 3.6 g/dL (3.5-5.2) 06/28/23 04:43 Globulin 2.8 g/dL (1.3-4.6) 06/28/23 04:43 Vitamin B12 401 pg/mL (232-1245) 06/22/23 04:00 Folate > 20.0 ng/mL (4.5-32.2) 06/23/23 04:30 TSH 0.01 uIU/mL (0.27-4.20) L 06/17/23 09:55 Free T4 2.78 ng/dL (0.82-1.77) H 06/17/23 09:55 Urine Color Yellow (Yellow) 06/22/23 12:47 Urine Appearance Clear (CLEAR) 06/22/23 12:47 Urine pH 5 (5-7) 06/22/23 12:47 Ur Specific [place] 1.010 (1.005-1.030) 06/22/23 12:47 Urine Protein Neg (Negative) 06/22/23 12:47 Urine Glucose (UA) Norm (Normal) 06/22/23 12:47 Urine Ketones Negative (Negative) 06/22/23 12:47 Urine Blood Neg (Negative) 06/22/23 12:47 Urine Nitrate Negative (Negative) 06/22/23 12:47 Urine Bilirubin Neg (Negative) 06/22/23 12:47 Urine Urobilinogen Norm mg/dL (Negative) 06/22/23 12:47 Ur Leukocyte Esterase Trace (Negative) H 06/22/23 12:47 Urine RBC None /hpf (0-2) 06/22/23 12:47 Urine WBC 0-4 /hpf (0-5) H 06/22/23 12:47 Ur Squamous Epith Cells None /hpf (0-5) 06/22/23 12:47 Amorphous Sediment Not Reportable 06/22/23 12:47 Urine Bacteria Trace /hpf (NONE) 06/22/23 12:47 Ur Random Sodium 34 mmol/L 06/22/23 12:47 Ur Random Potassium 22 mmol/L 06/22/23 12:47 Ur Random Chloride 33 mmol/L 06/22/23 12:47 Vitals Last Vital Signs Temp 97.5 F L 06/28/23 07:42 Pulse 66 06/28/23 08:36 Resp 18 06/28/23 08:36 BP 135/65 06/28/23 07:42 Pulse Ox 98 06/28/23 08:36 O2 Del Method Nasal Cannula 06/28/23 08:36 O2 Flow Rate 2 06/28/23 08:36 Discharge Plan Discharge Patient Disposition: Home Condition: Stable Prescriptions: New metoprolol tartrate 25 mg Tablet 25 mg PO BID@0900,2100 Qty: 180 2RF Tikosyn 250 mcg tablet 250 mcg PO 0900,2100 Qty: 60 6RF Rx Instructions: 250 mcg tablet, 1 tab twice a day Lasix 40 mg tablet 40 mg PO QAM Qty: 30 5RF budesonide 0.5 mg/2 mL Suspension For Nebulization 0.5 mg inhalation BID.RESPIRATORY Qty: 1 0RF guaifenesin [Mucinex] 600 mg Tablet Extended Release 12hr 600 mg PO BID Qty: 60 0RF Continued aspirin [Adult Low Dose Aspirin] 81 mg tablet,delayed release (DR/EC) 81 mg PO DAILY ezetimibe 10 mg tablet 10 mg PO DAILY (DME) FreeStyle Mati 2 Sensor Kit See Rx Instructions .Route Qty: 6 0RF Rx Instructions: As directed (DME) FreeStyle Mati 2 [place] Misc See Rx Instructions .Route Qty: 1 0RF Rx Instructions: As directed Eliquis 5 mg tablet 5 mg PO BID Qty: 180 1RF methimazole 10 mg tablet 20 mg PO DAILY Qty: 120 1RF albuterol sulfate 2.5 mg /3 mL (0.083 %) solution for nebulization 2.5 mg inhalation Q8H PRN (Reason: shortness of breath or wheezing) Qty: 75 0RF gabapentin 600 mg Tablet 600 mg PO BID insulin glargine 100 unit/mL Solution 45 unit SUBCUT BID cetirizine [Zyrtec] 10 mg Tablet 10 mg PO DAILY allopurinol 100 mg Tablet 150 mg PO DAILY tamsulosin [Flomax] 0.4 mg Capsule 0.4 mg PO QPM sodium bicarbonate 650 mg Tablet 650 mg PO BID docusate sodium [Colace] 100 mg Capsule 200 mg PO BID Rx Instructions: hold for loose stool paroxetine HCl [Paxil] 40 mg Tablet 40 mg PO DAILY cholecalciferol (vitamin D3) [Vitamin D3] 25 mcg (1,000 unit) Tablet 75 mcg PO DAILY omega-3 fatty acids 1,000 mg capsule 1,000 mg PO BID calcitriol 0.25 mcg Capsule 0.25 mcg PO QAM coenzyme Q10 100 mg Capsule 100 mg PO DAILY PRN (Reason: UNKNOWN) Changed rosuvastatin 40 mg Tablet 40 mg PO BEDTIME Qty: 30 0RF Discontinued Pacerone 200 mg tablet 200 mg PO DAILY Other Ambulatory Orders: Basic Metabolic Panel (Routine) Timeframe: 1 Week Facility: [facility] - Location: Lab - Main Lab Ordered By: Glory Gallo ECG 12 lead EKG (Routine) Timeframe: 1 Week Facility: [facility] - Location: Respiratory Therapy Ordered By: Glory Gallo DME: Oxygen (Order) Location: None Selected Ordered By: Kaveh Chicas Referrals: Luana Villegas MD [Primary Care Provider] - 07/01/23 10:45 am Pari Cortes FNP [Nurse Practitioner] - 4-7 days (post CV, on Tikosyn) Nancy Siddiqui MD [Physician] - 1-3 days (Dr. Siddiqui's Office will be calling you to set up a follow up appointment. They are working you into the schedule and have to get back to you. Thank you.) Discharge Diet: Cardiac, Low Salt and Low Cholesterol Discharge Activity: Increase activity as tolerated Patient Instructions: Metoprolol (By mouth) (Lopressor, Toprol XL), Furosemide (By mouth) (Lasix), Dofetilide (By mouth) (Tikosyn), Heart Failure (DC), CHF Stoplight, Opioid Safety Activity Restrictions/Additional Instructions: BP/HR log x 2 2weeks May use additional metoprolol 1 tab if HR> 110 bpm as needed Discharge Attestations Time Spent in Discharge Care*: less than 30 min Quality Metrics Clinical Quality Measures [ No reported AMI, CVA or VTE this stay] Coding Level of Care Code Acute Code for Chg Fwd Diagnoses CHF (congestive heart failure), NYHA class III I50.9 Atrial flutter I48.92 FABI (acute kidney injury) N17.9 Hyperthyroidism E05.90 Hyperlipidemia E78.5
--- NOTE | 2023-06-28 12:12 | PC.SOCIAL ---
IMM Updated Updated pt & daughter on IMM. No questions voiced. Provided pt a copy. Initialed, dated, & timed copy in chart.
--- NOTE | 2023-06-28 16:21 | PC.NURSE ---
Discharge Note Patient discharged to home via POV accompanied by daughter. Discharge instructions reviewed with patient and/or scheduling representative. Mobile pharmacy medications and/or prescriptions provided. Belongings/home medications returned.
== END 2023-06-28 16:27 | disposition home or self-care (01) | DRG 309 ==
LOC: ER 11:28 → CSU 11:47
PROVIDERS: Internal Medicine; Internal Medicine Cardiovascular Disease; Student in an Organized Health Care Education/Training Program; Admitting Provider Internal Medicine; Emergency Provider Internal Medicine; PCP Family Medicine; Visit Provider Internal Medicine
DX: I48.0 Paroxysmal atrial fibrillation (principal); I13.0 Hypertensive heart and chronic kidney disease with heart failure and stage 1 through stage 4 chronic kidney disease, or unspecified chronic kidney disease; N17.9 Acute kidney failure, unspecified; I50.20 Unspecified systolic (congestive) heart failure; E05.80 Other thyrotoxicosis without thyrotoxic crisis or storm; T46.2X5A Adverse effect of other antidysrhythmic drugs, initial encounter; E78.5 Hyperlipidemia, unspecified; I42.9 Cardiomyopathy, unspecified; I25.10 Atherosclerotic heart disease of native coronary artery without angina pectoris; Z95.1 Presence of aortocoronary bypass graft; E66.9 Obesity, unspecified; Z68.33 Body mass index [BMI] 33.0-33.9, adult; J44.9 Chronic obstructive pulmonary disease, unspecified; E11.22 Type 2 diabetes mellitus with diabetic chronic kidney disease; E11.42 Type 2 diabetes mellitus with diabetic polyneuropathy; N18.30 Chronic kidney disease, stage 3 unspecified; Z95.828 Presence of other vascular implants and grafts; Z86.711 Personal history of pulmonary embolism; Z86.718 Personal history of other venous thrombosis and embolism; G47.33 Obstructive sleep apnea (adult) (pediatric); Z87.891 Personal history of nicotine dependence; M10.9 Gout, unspecified
CPT/HCPCS: 36415; 36416; 36600; 51798; 71045; 76536; 76770; 80048; 80051; 80053; 81001; 82330; 82436; 82607; 82746; 82805; 82962; 83540; 83550; 83735; 83880; 84133; 84300; 84439; 84443; 84484; 85025; 85610; 85730; 93005; 94640; 94664; 94760; 96365; 96372; 96375; 96376; 99285; A9270; C8929; J1160; J1815; J1940; J2704; J2930; J3490; J7030; J7050; J7120; J7512; J7614; J7626; Q9956

== ENCOUNTER 2023-07-01 08:08 | Emergency (ER) | payer OTHER, SELFPAY ==
[2023-07-01 08:10] VITALS: BP 106/56; PULSE 59; RESP 16; TEMP 36.6; O2SAT 98; BMI 34.7
--- NOTE | 2023-07-01 08:13 | XRR_ITS ---
PROCEDURE INFORMATION: Exam: XR Chest Exam date and time: 07/01/2023 8:40 AM Age: 73 years old Clinical indication: Cough and dyspnea; Additional info: Dyspnea/cough.No history of trauma or recent surgery is provided. TECHNIQUE: Imaging protocol: Radiologic exam of the chest. 1image(s) are provided. Views: 1 view. COMPARISON: 1. CR (CHEST, ) 06/23/2023 11:40 PM 2. CR (CHEST, ) 06/19/2023 7:[address] chest wo con [id number] 06/05/2023 7:13 AM FINDINGS: Tubes, catheters and devices: The sternal wires are aligned. Lungs: No interval lobar consolidation is appreciated. There appears to be some improving central basal aeration as there is some decreasing opacification for example including at the left medial lung base as well as right mid lung zone. Pleural spaces: There is costophrenic angle blunting as well as some subpleural chronic appearing scarring more so on the left similar overall. No pneumothorax is appreciated. Heart/Mediastinum: The cardiomediastinal silhouette is upper normal in size.This can be seen with central averaging as well as harris enlargement.No cardiac decompensation is appreciated. Diaphragm: There is slight asymmetric right hemidiaphragm elevation. Bones/joints: Osseous alignment is maintained.There is slightly decreased bone mineralization overall.No interval displaced fracture or dislocation is appreciated. There is some chronic degeneration about the shoulders. Soft tissues: No radiopaque foreign body or subcutaneous emphysema is appreciated. Organs: There is suspected right thyroid enlargement with some leftward tracheal deviation albeit similar overall. Other findings: No other significant interval changes are appreciated. XR/XR chest 1V portable [id number] IMPRESSION: There is chronic underlying scarring with some interval improving central basal aeration as compared to the previous studies. No lobar type consolidation or cardiac decompensation is appreciated.
--- NOTE | 2023-07-01 08:18 | ECG_ITS ---
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 Measurements Intervals [place] Rate: 57 P: 79 MO: 205 QRS: 58 QRSD: 95 T: 46 QT: 454 QTc: 444 Interpretive Statements SINUS BRADYCARDIA INCOMPLETE RIGHT BUNDLE BRANCH BLOCK [90+ ms QRS DURATION, TERMINAL R IN V1/V2, 40+ ms S IN I/aVL/V4/V5/V6] Compared to ECG 06/28/2023 08:46:26 Incomplete right bundle-branch block now present Sinus rhythm no longer present T-wave abnormality no longer present Prolonged QT interval no longer present Electronically Signed On 07-01-2023 11:09:18 CDT by Royer Dennison M.D. [id number]
--- NOTE | 2023-07-01 08:33 | W.ED.SYNCOPE ---
HPI - Syncope General: Chief Complaint: Syncope Stated Complaint: syncope Time Seen by Provider: 07/01/23 08:12 Source: patient Mode of arrival: ambulatory History of Present Illness: 73-year-old male presents emergency room after syncopal episode. He left his house to go out to eat did not take his oxygen with him he had a loss of consciousness. He was seen last week and hospitalized he had atrial fibrillation he has chronic kidney issues as well as heart failure. He was discharged home on oxygen did not have his oxygen with him today when this event happened. Patient denies any chest pain or injury. No report of oxygen sat prior to placing the patient back on his supplemental oxygen. On room exam here patient is in 96 to 98% range on 2 L by nasal cannula and has no complaints. MD complaint: loss of consciousness Onset (ago): hour(s) Prodromal symptoms: none Injuries sustained associated with event: none Associated symptoms: Reports short of breath and weakness; Deny abdominal pain, chest pain, fever(s), headache(s), lightheadedness, nausea or vertigo Treatments prior to arrival: none Review of Systems Const: Denies: fever(s) or chills Card: Denies: chest pain or lightheadedness Resp: Denies: dyspnea GI: Denies: abdominal pain or nausea : Denies: dysuria, urinary frequency or urinary urgency Musc: Denies: neck pain or back pain Skin/Breast: Denies: rash Neuro: Denies: headache(s) or vertigo PFS ED PFSH: Medical History Acute kidney injury superimposed on chronic kidney disease Atherosclerosis Atrial fibrillation Atrial fibrillation with rapid ventricular response Atrial flutter Chest pain Chronic atrial fibrillation Chronic kidney disease Creatinine elevation Depressive disorder Elevated troponin I level Essential hypertension Gout Hyperlipidemia NSTEMI (non-ST elevated myocardial infarction) Peripheral neuropathy Troponin level elevated Type 2 diabetes mellitus Surgical History H/O knee surgery History of cholecystectomy Hx of CABG S/P hernia surgery Family History Father Myocardial infarct Mother Stroke Other Family history of premature coronary artery disease Social History (Reviewed 07/01/23 @ 08:34 by ERIC Cantu Smoking and tobacco/nicotine status: former use of tobacco/nicotine Quit status (tobacco/nicotine): has quit using Year quit tobacco: 1971 Former quit date comment: 1ppd x 20 years Physical Exam Const: COMMON NORMALS: no acute distress GENERAL APPEARANCE: cooperative and comfortable ORIENTATION/CONSCIOUSNESS: Yes awake, Yes oriented to person, Yes oriented to place and Yes oriented to time HENMT: COMMON NORMALS: normocephalic, atraumatic and hearing grossly normal bilaterally HEAD & SCALP: normocephalic and atraumatic Resp: COMMON NORMALS: normal respiratory effort, No retractions, No use of accessory muscles and clear to auscultation bilaterally AUSCULTATION: clear to auscultation bilaterally Cardio: COMMON NORMALS: regular rate, regular rhythm and No murmurs present (Cardio) RATE: regular rate RHYTHM: regular rhythm GI: COMMON NORMALS: Soft to palpation and No hepatosplenomegaly present AUSCULTATION: Yes normoactive bowel sounds PALPATION: Yes Soft to palpation, No Tenderness to palpation present (GI), No Guarding due to palpation present (GI) and Yes No hepatosplenomegaly present Extremity: COMMON NORMALS: normal to inspection, capillary refill normal, no clubbing, cyanosis or edema, no calf tenderness and no pedal edema Neuro: SENSORIUM/ORIENTATION: Yes oriented to person, Yes oriented to place and Yes oriented to time Skin: COMMON NORMALS: no rashes or lesions noted GENERAL SKIN EXAM: no rashes or lesions noted Course Vital Signs: Vital signs: Vital Signs Temperature 97.8 F 07/01/23 08:10 Pulse Rate 62 07/01/23 11:00 Respiratory Rate 16 07/01/23 11:00 Blood Pressure 94/52 07/01/23 11:00 Pulse Oximetry 98 07/01/23 11:00 Oxygen Delivery Me thod Room Air 07/01/23 11:00 Oxygen Flow Rate 2 07/01/23 08:10 MDM - Syncope Medical Decision Making EKG does not show any acute ST changes is normal. Troponins elevated but have a negative trend and are likely elevated secondary to his significant congestive heart failure. He is asymptomatic of any chest pain or discomfort at this time all of his symptoms have resolved completely after reapplying his oxygen. Discussed with him the importance of wearing oxygen at all times especially if he is up and active outside of the home follow-up with his doctor as previously scheduled. Medical Records I reviewed the patient's medical records. Lab Data I reviewed the patient's lab results. 07/01/23 08:32 07/01/23 08:32 Radiology Impressions Chest X-Ray 07/01/23 08:13 IMPRESSION: There is chronic underlying scarring with some interval improving central basal aeration as compared to the previous studies. No lobar type consolidation or cardiac decompensation is appreciated. Laboratory Results WBC 13.61 10^3/uL (3.29-11.43) H 07/01/23 08:32 RBC 4.31 10^6/uL (3.85-5.65) 07/01/23 08:32 Hgb 12.50 g/dL (11.27-16.99) 07/01/23 08:32 Hct 38.6 % (37-53) 07/01/23 08:32 MCV 89.6 fl (82-101) 07/01/23 08:32 MCH 29.0 pg (27-33) 07/01/23 08:32 MCHC 32.4 g/dL (30-55) 07/01/23 08:32 RDW 13.2 % (12.1-15.1) 07/01/23 08:32 Plt Count 245 10^3/cmm (157-399) 07/01/23 08:32 MPV 10.5 fL (7.4-10.4) H 07/01/23 08:32 Neut % (Auto) 75.0 % 07/01/23 08:32 Lymph % (Auto) 9.8 % 07/01/23 08:32 [place] % (Auto) 8.3 % 07/01/23 08:32 Eos % (Auto) 3.2 % 07/01/23 08:32 Baso % (Auto) 0.4 % 07/01/23 08:32 Neut # (Auto) 10.20 10^3/uL (1.8-7.7) H 07/01/23 08:32 Lymph # (Auto) 1.3 10^3/uL (0.8-4.8) 07/01/23 08:32 [place] # (Auto) 1.1 10^3/uL (0.2-0.9) H 07/01/23 08:32 Eos # (Auto) 0.4 10^3/uL (0.0-0.8) 07/01/23 08:32 Baso # (Auto) 0.1 10^3/uL (0.0-0.1) 07/01/23 08:32 Nucleated RBC % (auto) 0 % 07/01/23 08:32 Nucleated RBCs # 0.0 /100WBC 07/01/23 08:32 Sodium 135 mmol/L (136-145) L 07/01/23 08:32 Potassium 4.4 mmol/L (3.5-5.1) 07/01/23 08:32 Chloride 93 mmol/L (98-107) L 07/01/23 08:32 Carbon Dioxide 30 mmol/L (22-29) H 07/01/23 08:32 Anion Gap 16.4 (5-19) 07/01/23 08:32 BUN 89 mg/dL (8-23) H* 07/01/23 08:32 Creatinine 3.0 mg/dL (0.7-1.2) H 07/01/23 08:32 GFR Calculation Not Reportable 07/01/23 08:32 Glucose 233 mg/dL (65-115) H 07/01/23 08:32 Calculated Osmolality 315 mOsm/kg (285-295) H 07/01/23 08:32 Calcium 8.6 mg/dL (8.5-10.5) 07/01/23 08:32 Total Bilirubin 0.6 mg/dL (0.15-1.2) 07/01/23 08:32 AST 16 U/L (0-40) 07/01/23 08:32 ALT 48 U/L (0-41) H 07/01/23 08:32 Alkaline Phosphatase 115 U/L (40-130) 07/01/23 08:32 Troponin T Baseline 121 ng/L (0-15) H* 07/01/23 08:32 Troponin T 120 Minute 114.5 ng/L (0-15) H 07/01/23 10:22 Delta Troponin T -6.5 ABS# (0-10) L 07/01/23 10:22 Total Protein 5.7 g/dL (6.6-8.7) L 07/01/23 08:32 Albumin 3.8 g/dL (3.5-5.2) 07/01/23 08:32 Globulin 1.9 g/dL (1.3-4.6) 07/01/23 08:32 All radiology interpretation(s) finalized by discharge Discharge Plan Discharge Patient Disposition: Home Clinical Impression: Hypoxia, CHF (congestive heart failure), NYHA class III Condition: Stable Prescriptions: No Action aspirin [Adult Low Dose Aspirin] 81 mg tablet,delayed release (DR/EC) 81 mg PO QAM ezetimibe 10 mg tablet 10 mg PO DAILY (DME) FreeStyle Mati 2 Sensor Kit See Rx Instructions .Route Qty: 6 0RF Rx Instructions: As directed (DME) FreeStyle Mati 2 [place] Misc See Rx Instructions .Route Qty: 1 0RF Rx Instructions: As directed Eliquis 5 mg tablet 5 mg PO BID Qty: 180 1RF methimazole 10 mg tablet 20 mg PO DAILY Qty: 120 1RF albuterol sulfate 2.5 mg /3 mL (0.083 %) solution for nebulization 2.5 mg inhalation Q8H PRN (Reason: shortness of breath or wheezing) Qty: 75 0RF gabapentin 600 mg Tablet 600 mg PO BID insulin glargine 100 unit/mL Solution 45 unit SUBCUT BID cetirizine [Zyrtec] 10 mg Tablet 10 mg PO DAILY allopurinol 100 mg Tablet 150 mg PO DAILY tamsulosin [Flomax] 0.4 mg Capsule 0.4 mg PO QPM sodium bicarbonate 650 mg Tablet 650 mg PO BID docusate sodium [Colace] 100 mg Capsule 200 mg PO BID Rx Instructions: hold for loose stool paroxetine HCl [Paxil] 40 mg Tablet 40 mg PO DAILY cholecalciferol (vitamin D3) [Vitamin D3] 25 mcg (1,000 unit) Tablet 75 mcg PO DAILY omega-3 fatty acids 1,000 mg capsule 1,000 mg PO BID calcitriol 0.25 mcg Capsule 0.25 mcg PO QAM coenzyme Q10 100 mg Capsule 100 mg PO DAILY PRN (Reason: UNKNOWN) metoprolol tartrate 25 mg Tablet 25 mg PO BID@0900,2100 Qty: 180 2RF Tikosyn 250 mcg tablet 250 mcg PO 0900,2100 Qty: 60 6RF Rx Instructions: 250 mcg tablet, 1 tab twice a day furosemide [Lasix] 40 mg tablet 40 mg PO QAM Qty: 30 5RF budesonide 0.5 mg/2 mL Suspension For Nebulization 0.5 mg inhalation BID.RESPIRATORY Qty: 1 0RF guaifenesin [Mucinex] 600 mg Tablet Extended Release 12hr 600 mg PO BID Qty: 60 0RF rosuvastatin 40 mg Tablet 40 mg PO BEDTIME Qty: 30 0RF Discharge Orders: Discharge ED (Routine); Ordered 07/01/23 Ordered By: Topher Cook Referrals: Luana Villegas MD [Primary Care Provider] - Discharge Diet: Usual diet Discharge Activity: Increase activity as tolerated Patient Instructions: Opioid Safety, Pain Management Activity Restrictions/Additional Instructions: Thank you for choosing [facility] for your healthcare needs today. Please realize this is an emergency room and that we are providing you with a medical screening exam and this may not be complete and all inclusive of all the testing and or work up that you may need to determine your ailment or severity of your illness. It is very important that you follow up as instructed or that you return to the Emergency Department should you have concerns or if your condition changes or worsens in any way. You are seen the emergency room today after a syncopal episodes (passing out). This is likely due to hypoxia. It is important that you wear your prescribed oxygen at all times especially when you leave the house and are going to be active. Follow-up with your doctor as previously Scheduled. Coding Level of Care Code ED Forensic Dna Analyst for Zechariah Kaur
[2023-07-01 08:43] LABS: Basophils # 0.1 10^3/uL (0.0-0.1); Basophils % 0.4 %; Eosinophils # 0.4 10^3/uL (0.0-0.8); Eosinophils % 3.2 %; Hematocrit 38.6 % (37-53); Lymphocytes # 1.3 10^3/uL (0.8-4.8); Lymphocytes % 9.8 %; Mean Corpuscular HGB Conc 32.4 g/dL (30-55); Mean Corpuscular Volume 89.6 fl (82-101); Mean Platelet Volume 10.5 fL (7.4-10.4); Monocytes # 1.1 10^3/uL (0.2-0.9); Monocytes % 8.3 %; Nucleated Red Blood Cells % 0 %; Platelet Count 245 10^3/cmm (157-399); Red Blood Count 4.31 10^6/uL (3.85-5.65); Red Cell Distribution Width 13.2 % (12.1-15.1); White Blood Count 13.61 10^3/uL (3.29-11.43)
[2023-07-01 08:57] LABS: Alanine Aminotransferase 48 U/L (0-41); Albumin Level 3.8 g/dL (3.5-5.2); Alkaline Phosphatase 115 U/L (40-130); Anion Gap 16.4 (5-19); Aspartate Amino Transferase 16 U/L (0-40); Calcium 8.6 mg/dL (8.5-10.5); Carbon Dioxide 30 mmol/L (22-29); Chloride 93 mmol/L (98-107); Globulin 1.9 g/dL (1.3-4.6); Glucose 233 mg/dL (65-115); Osmolality Calculated 315 mOsm/kg (285-295); Potassium 4.4 mmol/L (3.5-5.1); Sodium 135 mmol/L (136-145); Total Bilirubin 0.6 mg/dL (0.15-1.2); Total Protein 5.7 g/dL (6.6-8.7)
[2023-07-01 09:03] LABS: Blood Urea Nitrogen 89 mg/dL (8-23); Troponin(5th) Baseline 121 ng/L (0-15)
[2023-07-01 09:18] VITALS: BP 107/58; PULSE 58; RESP 16; O2SAT 95
--- NOTE | 2023-07-01 09:30 | PC.PHAR ---
GUARDIAN STATES HE STARTED THROWING UP ABOUT 30 TO 45 MINUTES AFTER TAKING MORNING MEDICATIONS TODAY. 07/01/23
--- NOTE | 2023-07-01 10:29 | ECG_ITS ---
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 Measurements Intervals [place] Rate: 59 P: 98 AR: 194 QRS: 52 QRSD: 101 T: 41 QT: 461 QTc: 460 Interpretive Statements SINUS BRADYCARDIA INCOMPLETE RIGHT BUNDLE BRANCH BLOCK [90+ ms QRS DURATION, TERMINAL R IN V1/V2, 40+ ms S IN I/aVL/V4/V5/V6] PROLONGED QT INTERVAL Compared to ECG 07/01/2023 08:18:40 Prolonged QT interval now present Electronically Signed On 07-01-2023 11:09:48 CDT by Royer Dennison M.D. [id number]
[2023-07-01 10:56] LABS: Troponin 5 2HR 114.5 ng/L (0-15); Troponin 5 2HR Delta -6.5 ABS# (0-10)
[2023-07-01 11:00] VITALS: BP 94/52; PULSE 62; RESP 16; O2SAT 98
[2023-07-01 11:53] VITALS: BP 94/52; PULSE 62; RESP 16; TEMP 36.6; O2SAT 98
== END 2023-07-01 12:00 | disposition home or self-care (01) ==
PROVIDERS: Emergency Provider Family Medicine; PCP Family Medicine
DX: I11.0 Hypertensive heart disease with heart failure (principal); I50.9 Heart failure, unspecified; R09.02 Hypoxemia; Z79.82 Long term (current) use of aspirin; Z79.01 Long term (current) use of anticoagulants; Z79.4 Long term (current) use of insulin; Z87.891 Personal history of nicotine dependence; I12.9 Hypertensive chronic kidney disease with stage 1 through stage 4 chronic kidney disease, or unspecified chronic kidney disease; E11.22 Type 2 diabetes mellitus with diabetic chronic kidney disease; N18.9 Chronic kidney disease, unspecified; E78.5 Hyperlipidemia, unspecified; I25.2 Old myocardial infarction; E11.42 Type 2 diabetes mellitus with diabetic polyneuropathy; Z95.1 Presence of aortocoronary bypass graft
CPT/HCPCS: 36415; 71045; 80053; 84484; 85025; 93005; 99285

== ENCOUNTER 2023-07-08 11:54 | Observation (INO) | payer OTHER, SELFPAY ==
[2023-07-08] VITALS (17 sets, daily range): BP systolic 76–137; BP diastolic 49–78; PULSE 72–88; RESP 18–24; TEMP 36.6; O2SAT 91–98; BMI 35.2
--- NOTE | 2023-07-08 11:56 | XRR_ITS ---
PROCEDURE INFORMATION: Exam: XR Chest Exam date and time: 07/08/2023 12:12 PM Age: 73 years old Clinical indication: Other: Dizzy TECHNIQUE: Imaging protocol: Radiologic exam of the chest. Views: 1 view. COMPARISON: CR XR chest 1V portable [id number] 07/01/2023 8:40 AM FINDINGS: Lungs: Pleuroparenchymal scarring in the left base is not appreciably changed. No definite acute component. Pleural spaces: Unremarkable. No pleural effusion. No pneumothorax. Heart/Mediastinum: Unremarkable. No cardiomegaly. Bones/joints: There are sternal sutures. No acute findings. XR/XR chest 1V portable [id number] IMPRESSION: 1. Pleuroparenchymal scarring in the left base is not appreciably changed. No definite acute component. 2. Essentially unchanged chest x-ray.
[2023-07-08 13:01] LABS: Basophils # 0.1 10^3/uL (0.0-0.1); Basophils % 0.5 %; Eosinophils # 0.2 10^3/uL (0.0-0.8); Eosinophils % 1.5 %; Hematocrit 38.2 % (37-53); Lymphocytes # 1.4 10^3/uL (0.8-4.8); Lymphocytes % 10.2 %; Mean Corpuscular HGB Conc 32.7 g/dL (30-55); Mean Corpuscular Hemoglobin 29.1 pg (27-33); Mean Platelet Volume 11.6 fL (7.4-10.4); Monocytes % 7.2 %; Neutrophils # 10.57 10^3/uL (1.8-7.7); Neutrophils % 80.1 %; Nucleated Red Blood Cells % 0 %; Platelet Count 201 10^3/cmm (157-399); Red Blood Count 4.29 10^6/uL (3.85-5.65); Red Cell Distribution Width 13.3 % (12.1-15.1); White Blood Count 13.19 10^3/uL (3.29-11.43)
--- NOTE | 2023-07-08 13:12 | ECG_ITS ---
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 Measurements Intervals [place] Rate: 86 P: 99 OK: 184 QRS: 84 QRSD: 94 T: 38 QT: 412 QTc: 493 Interpretive Statements SINUS RHYTHM INCOMPLETE RIGHT BUNDLE BRANCH BLOCK [90+ ms QRS DURATION, TERMINAL R IN V1/V2, 40+ ms S IN I/aVL/V4/V5/V6] MINIMAL ST DEPRESSION [0.025+ mV ST DEPRESSION] Compared to ECG 07/01/2023 10:29:58 ST (T wave) deviation now present Sinus bradycardia no longer present Prolonged QT interval no longer present Electronically Signed On 07-08-2023 13:43:09 LICENSED INSURANCE SALES AGENT by Glory Gallo M.D. [id number]
[2023-07-08 13:15] LABS: INR 1.56 (0.8-1.2)
[2023-07-08 13:20] LABS: Alanine Aminotransferase 47 U/L (0-41); Alkaline Phosphatase 128 U/L (40-130); Anion Gap 19.8 (5-19); Aspartate Amino Transferase 28 U/L (0-40); Blood Urea Nitrogen 51 mg/dL (8-23); Calcium 9.5 mg/dL (8.5-10.5); Carbon Dioxide 27 mmol/L (22-29); Chloride 95 mmol/L (98-107); Globulin 3.2 g/dL (1.3-4.6); Glucose 216 mg/dL (65-115); Osmolality Calculated 306 mOsm/kg (285-295); Potassium 3.8 mmol/L (3.5-5.1); Sodium 138 mmol/L (136-145); Total Bilirubin 0.8 mg/dL (0.15-1.2); Total Protein 7.2 g/dL (6.6-8.7)
--- NOTE | 2023-07-08 13:49 | W.ED.DIZZY ---
HPI - Dizziness General: Chief Complaint: Dizziness Stated Complaint: dizzy Time Seen by Provider: 07/08/23 13:32 Source: patient Mode of arrival: ambulatory History of Present Illness: HPI Narrative: 73-year-old male who presents emergency room after near syncopal episode at home have been measuring his blood pressure at home at times and getting pressures in 70s and 80s. Patient was recently hospitalized for A-fib with RVR and CHF after he got discharged we seen him back after he left the house that his oxygen will reapply the oxygen his symptoms improved and we ended up discharging him. He is denying any chest pain at this time. He states this happens when he stands up and walks. Sitting him up in the bed he does become somewhat lightheaded and dizzy. Improves as he sits for longer period of time. MD elicited complaint: dizziness and lightheadedness Onset (ago): day(s) Severity: mild Description: lightheadedness History of similar symptoms: Yes Exacerbating factors: nothing Relieving factors: nothing Associated symptoms: Denies chest pain or chills Review of Systems Const: Denies: fever(s) or chills Card: Denies: chest pain Resp: Denies: dyspnea GI: Denies: abdominal pain : Denies: dysuria, urinary frequency or urinary urgency Musc: Denies: neck pain or back pain Skin/Breast: Denies: rash PFSH ED PFSH: Medical History Acute kidney injury superimposed on chronic kidney disease Atherosclerosis Atrial fibrillation Atrial fibrillation with rapid ventricular response Atrial flutter Chest pain Chronic atrial fibrillation Chronic kidney disease Creatinine elevation Depressive disorder Elevated troponin I level Essential hypertension Gout Hyperlipidemia NSTEMI (non-ST elevated myocardial infarction) Peripheral neuropathy Troponin level elevated Type 2 diabetes mellitus Surgical History H/O knee surgery History of cholecystectomy Hx of CABG S/P hernia surgery Family History Father Myocardial infarct Mother Stroke Other Family history of premature coronary artery disease Social History Smoking and tobacco/nicotine status: former use of tobacco/nicotine Quit status (tobacco/nicotine): has quit using Year quit tobacco: 1971 Former quit date comment: 1ppd x 20 years Physical Exam Const: COMMON NORMALS: no acute distress GENERAL APPEARANCE: cooperative and comfortable ORIENTATION/CONSCIOUSNESS: Yes awake, Yes oriented to person, Yes oriented to place and Yes oriented to time HENMT: COMMON NORMALS: normocephalic, atraumatic and hearing grossly normal bilaterally HEAD & SCALP: normocephalic and atraumatic Resp: COMMON NORMALS: normal respiratory effort, No retractions, No use of accessory muscles and clear to auscultation bilaterally AUSCULTATION: clear to auscultation bilaterally Cardio: COMMON NORMALS: regular rate, regular rhythm and No murmurs present (Cardio) RATE: regular rate RHYTHM: regular rhythm GI: COMMON NORMALS: Soft to palpation and No hepatosplenomegaly present AUSCULTATION: Yes normoactive bowel sounds PALPATION: Yes Soft to palpation, No Tenderness to palpation present (GI), No Guarding due to palpation present (GI) and Yes No hepatosplenomegaly present Extremity: COMMON NORMALS: normal to inspection, capillary refill normal, no clubbing, cyanosis or edema, no calf tenderness and no pedal edema Neuro: SENSORIUM/ORIENTATION: Yes oriented to person, Yes oriented to place and Yes oriented to time Skin: COMMON NORMALS: no rashes or lesions noted GENERAL SKIN EXAM: no rashes or lesions noted Course Vital Signs: Vital signs: Vital Signs Pulse Rate 80 07/08/23 15:32 Respiratory Rate 18 07/08/23 11:59 Blood Pressure 117/63 07/08/23 15:32 Pulse Oximetry 94 07/08/23 11:59 Oxygen Delivery Me thod Room Air 07/08/23 11:59 MDM - Dizziness Medical Decision Making Patient significantly orthostatic. Blood pressure improved some and we hope to send him home with a decreased amount of metoprolol but and talk to the family then about giving him metoprolol at all the last while. And when he went to stand up with blood pressure 60 and 70 systolic. We will admit the patient for gentle rehydration and medication adjustments for his hypotension. Medical Records I reviewed the patient's medical records. Lab Data I reviewed the patient's lab results. 07/08/23 12:45 07/08/23 12:45 Radiology Impressions Chest X-Ray 07/08/23 11:56 IMPRESSION: 1. Pleuroparenchymal scarring in the left base is not appreciably changed. No definite acute component. 2. Essentially unchanged chest x-ray. Laboratory Results WBC 13.19 10^3/uL (3.29-11.43) H 07/08/23 12:45 RBC 4.29 10^6/uL (3.85-5.65) 07/08/23 12:45 Hgb 12.50 g/dL (11.27-16.99) 07/08/23 12:45 Hct 38.2 % (37-53) 07/08/23 12:45 MCV 89.0 fl (82-101) 07/08/23 12:45 MCH 29.1 pg (27-33) 07/08/23 12:45 MCHC 32.7 g/dL (30-55) 07/08/23 12:45 RDW 13.3 % (12.1-15.1) 07/08/23 12:45 Plt Count 201 10^3/cmm (157-399) 07/08/23 12:45 MPV 11.6 fL (7.4-10.4) H 07/08/23 12:45 Neut % (Auto) 80.1 % 07/08/23 12:45 Lymph % (Auto) 10.2 % 07/08/23 12:45 [place] % (Auto) 7.2 % 07/08/23 12:45 Eos % (Auto) 1.5 % 07/08/23 12:45 Baso % (Auto) 0.5 % 07/08/23 12:45 Neut # (Auto) 10.57 10^3/uL (1.8-7.7) H 07/08/23 12:45 Lymph # (Auto) 1.4 10^3/uL (0.8-4.8) 07/08/23 12:45 [place] # (Auto) 1.0 10^3/uL (0.2-0.9) H 07/08/23 12:45 Eos # (Auto) 0.2 10^3/uL (0.0-0.8) 07/08/23 12:45 Baso # (Auto) 0.1 10^3/uL (0.0-0.1) 07/08/23 12:45 Nucleated RBC % (auto) 0 % 07/08/23 12:45 Nucleated RBCs # 0.0 /100WBC 07/08/23 12:45 PT 19.20 SECONDS (12.1-14.9) H 07/08/23 12:45 INR 1.56 (0.8-1.2) H 07/08/23 12:45 Sodium 138 mmol/L (136-145) 07/08/23 12:45 Potassium 3.8 mmol/L (3.5-5.1) 07/08/23 12:45 Chloride 95 mmol/L (98-107) L 07/08/23 12:45 Carbon Dioxide 27 mmol/L (22-29) 07/08/23 12:45 Anion Gap 19.8 (5-19) H 07/08/23 12:45 BUN 51 mg/dL (8-23) H 07/08/23 12:45 Creatinine 2.7 mg/dL (0.7-1.2) H 07/08/23 12:45 GFR Calculation Not Reportable 07/08/23 12:45 Glucose 216 mg/dL (65-115) H 07/08/23 12:45 Calculated Osmolality 306 mOsm/kg (285-295) H 07/08/23 12:45 Calcium 9.5 mg/dL (8.5-10.5) 07/08/23 12:45 Total Bilirubin 0.8 mg/dL (0.15-1.2) 07/08/23 12:45 AST 28 U/L (0-40) 07/08/23 12:45 ALT 47 U/L (0-41) H 07/08/23 12:45 Alkaline Phosphatase 128 U/L (40-130) 07/08/23 12:45 Total Protein 7.2 g/dL (6.6-8.7) 07/08/23 12:45 Albumin 4.0 g/dL (3.5-5.2) 07/08/23 12:45 Globulin 3.2 g/dL (1.3-4.6) 07/08/23 12:45 All radiology interpretation(s) finalized by discharge Discharge Plan Discharge Patient Disposition: Placed in Observation Clinical Impression: Hypotension, postural Condition: Stable Prescriptions: Changed metoprolol tartrate 25 mg Tablet 12.5 mg PO BID@0900,2100 Qty: 180 2RF No Action aspirin [Adult Low Dose Aspirin] 81 mg tablet,delayed release (DR/EC) 81 mg PO QAM ezetimibe 10 mg tablet 10 mg PO DAILY (DME) FreeStyle Mati 2 Sensor Kit See Rx Instructions .Route Qty: 6 0RF Rx Instructions: As directed (DME) FreeStyle Mati 2 [place] Misc See Rx Instructions .Route Qty: 1 0RF Rx Instructions: As directed Eliquis 5 mg tablet 5 mg PO BID Qty: 180 1RF methimazole 10 mg tablet 20 mg PO DAILY Qty: 120 1RF albuterol sulfate 2.5 mg /3 mL (0.083 %) solution for nebulization 2.5 mg inhalation Q8H PRN (Reason: shortness of breath or wheezing) Qty: 75 0RF gabapentin 600 mg Tablet 600 mg PO BID insulin glargine 100 unit/mL Solution 45 unit SUBCUT BID cetirizine [Zyrtec] 10 mg Tablet 10 mg PO DAILY allopurinol 100 mg Tablet 150 mg PO DAILY tamsulosin [Flomax] 0.4 mg Capsule 0.4 mg PO QPM sodium bicarbonate 650 mg Tablet 650 mg PO BID docusate sodium [Colace] 100 mg Capsule 200 mg PO BID Rx Instructions: hold for loose stool paroxetine HCl [Paxil] 40 mg Tablet 40 mg PO DAILY cholecalciferol (vitamin D3) [Vitamin D3] 25 mcg (1,000 unit) Tablet 75 mcg PO DAILY omega-3 fatty acids 1,000 mg capsule 1,000 mg PO BID calcitriol 0.25 mcg Capsule 0.25 mcg PO QAM coenzyme Q10 100 mg Capsule 100 mg PO DAILY PRN (Reason: UNKNOWN) Tikosyn 250 mcg tablet 250 mcg PO 0900,2100 Qty: 60 6RF Rx Instructions: 250 mcg tablet, 1 tab twice a day furosemide [Lasix] 40 mg tablet 40 mg PO QAM Qty: 30 5RF budesonide 0.5 mg/2 mL Suspension For Nebulization 0.5 mg inhalation BID.RESPIRATORY Qty: 1 0RF guaifenesin [Mucinex] 600 mg Tablet Extended Release 12hr 600 mg PO BID Qty: 60 0RF rosuvastatin 40 mg Tablet 40 mg PO BEDTIME Qty: 30 0RF Referrals: Luana Villegas MD [Primary Care Provider] - Patient Instructions: Opioid Safety, Pain Management Coding Level of Care Code ED Landscaping Manager for Markg Natasha
[2023-07-08] MEDS: sodium chloride 0.9% 500 ML IV (14:23)
--- NOTE | 2023-07-08 15:40 | P.HP_ITS ---
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 Patient endorses recurrent orthostasis, dizziness, and lightheadedness. He has been monitoring his blood pressure at home and has been hypotensive. Of note, he was recently admitted for atrial fibrillation with rapid ventricular rate as well as congestive heart failure. He endorses compliance with medications. Patient has a history of hyperthyroidism. He is on methimazole. Hyperthyroidism has been attributed to amiodarone which has been discontinued. He is now on Tikosyn for his atrial flutter/fibrillation. He is also prescribed metoprolol. Daughter states that they rarely take this due to concerns for hypotension. His heart rates been fairly well controlled at home. Patient is not sure when he is in atrial fibrillation or not. Patient has had a recent thyroid ultrasound which recommended he follow-up with an FNA. They state they have not seen the donor technician but plan to reschedule an appointment soon. He has been referred for ablation for his atrial fibrillation/flutter. They p christian on doing this in [place]. Patient denies chest pain, fevers, chills, or peripheral edema. He notes he injured his left ankle/leg the other day and now has subsequent inflammation there. Review of Systems Narrative: A complete review of systems was obtained and is negative except as stated in HPI. Medications/Allergies Home Medications Medication Instructions Recorded Confirmed Last Taken Type aspirin 81 mg tablet,delayed 81 mg PO QAM 10/14/19 07/08/23 07/08/23 History release (Adult Low Dose Aspirin) ezetimibe 10 mg tablet 10 mg PO DAILY 10/14/19 07/08/23 07/08/23 History allopurinol 100 mg tablet 150 mg PO DAILY 07/20/22 07/08/23 07/08/23 History cetirizine 10 mg tablet (Zyrtec) 10 mg PO DAILY 07/20/22 07/08/23 07/08/23 History cholecalciferol (vitamin D3) 25 75 mcg PO DAILY 07/20/22 07/08/23 07/08/23 History mcg (1,000 unit) tablet (Vitamin D3) docusate sodium 100 mg capsule 200 mg PO BID 07/20/22 07/08/23 07/08/23 History (Colace) gabapentin 600 mg tablet 600 mg PO BID 07/20/22 07/08/23 07/08/23 History insulin glargine 100 unit/mL 45 unit SUBCUT BID 07/20/22 07/08/23 07/08/23 History subcutaneous solution paroxetine HCl 40 mg tablet (Paxil) 40 mg PO DAILY 07/20/22 07/08/23 07/08/23 History sodium bicarbonate 650 mg tablet 650 mg PO BID 07/20/22 07/08/23 07/08/23 History tamsulosin 0.4 mg capsule (Flomax) 0.4 mg PO QPM 07/20/22 07/08/23 07/07/23 History albuterol sulfate 2.5 mg/3 mL 2.5 mg (3 mL) inhalation Q8H PRN 08/01/22 07/08/23 Unknown Rx (0.083 %) solution for nebulization shortness of breath or wheezing #75 mL calcitriol 0.25 mcg capsule 0.25 mcg PO QAM 10/10/22 07/08/23 07/08/23 History coenzyme Q10 100 mg capsule 100 mg PO DAILY PRN UNKNOWN 10/10/22 07/08/23 10/09/22 History flash glucose scanning reader #1 ea 02/11/23 07/08/23 Unknown Rx (FreeStyle Mati 2 [place]) flash glucose sensor (FreeStyle #6 ea 02/11/23 07/08/23 Unknown Rx Mati 2 Sensor kit) apixaban 5 mg tablet (Eliquis) 5 mg PO BID #180 tabs 03/07/23 07/08/23 07/08/23 Rx omega-3 fatty acids 1,000 mg 1,000 mg PO BID 03/07/23 07/08/23 07/08/23 History capsule methimazole 10 mg tablet 20 mg PO DAILY #120 tabs 05/15/23 07/08/23 07/08/23 Rx Tikosyn 250 mcg PO 0900,2100 #60 tabs 06/28/23 07/08/23 07/08/23 Rx furosemide 40 mg tablet (Lasix) 40 mg PO QAM #30 tabs 06/28/23 07/08/23 07/08/23 Rx rosuvastatin 40 mg tablet 40 mg PO BEDTIME #30 tabs 06/28/23 07/08/23 07/07/23 Rx budesonide 0.5 mg/2 mL suspension 0.5 mg inhalation BID.RESPIRATORY 07/08/23 07/08/23 Unknown History for nebulization PRN Shortness Of Breath guaifenesin 600 mg tablet, 600 mg PO BID PRN Congestion 07/08/23 07/08/23 Unknown History extended release 12 hr (Mucinex) metoprolol tartrate 25 mg tablet 25 mg PO BID PRN HIGH BLOOD 07/08/23 07/08/23 Unknown History PRESSURE Allergies Allergy/AdvReac Type Severity Reaction Status Date / Time No Known Allergies Allergy Verified 05/15/23 07:49 PFSH Acute PFSH: Medical History (Updated 07/08/23 @ 17:18 by Blanco De La Rosa MD) Acquired hammertoes of both feet Atherosclerosis Atrial fibrillation Atrial flutter Chronic atrial fibrillation Chronic kidney disease Depressive disorder Essential hypertension Goiter Gout Hyperlipidemia NSTEMI (non-ST elevated myocardial infarction) Onychomycosis PAD (peripheral artery disease) Peripheral neuropathy Right middle lobe pulmonary nodule Thyroid nodule Type 2 diabetes mellitus Surgical History H/O knee surgery History of cholecystectomy Hx of CABG S/P hernia surgery Family History Father Myocardial infarct Mother Stroke Other Family history of premature coronary artery disease Social History Smoking and tobacco/nicotine status: former use of tobacco/nicotine Quit status (tobacco/nicotine): has quit using Year quit tobacco: 1971 Former quit date comment: 1ppd x 20 years Vitals/I&O/Wt Last Vital Signs Pulse 80 07/08/23 15:32 Resp 18 07/08/23 11:59 BP 117/63 07/08/23 15:32 Pulse Ox 94 07/08/23 11:59 O2 Del Method Room Air 07/08/23 11:59 Weight last 48 hrs Weight 105.233 kg Physical Exam Narrative: General: Patient is awake and alert. Very pleasant. Head: Normocephalic. Atraumatic. EOM intact. Neck: No JVD. Cardiovascular: RRR. No gallops. No murmurs. No peripheral edema. Lungs: Clear to auscultation, no use of accessory muscles, no crackles or wheezes. Skin: No jaundice. No rashes. Abdomen: Normal bowel sounds, abdomen soft and nontender. Extremities: No cyanosis or clubbing. Musculoskeletal: No erythematous joints. Neurological: Moves all 4 extremities. No myoclonus. Data 07/08/23 12:45 07/08/23 12:45 A&P Assessment and plan (1) Hypotension, postural: No signs or symptoms to suggest sepsis Status post gentle IVF in ED Start midodrine Hold Lasix Hold beta steve Telemetry monitoring (2) Hyperthyroidism: Check TFTs Continue methimazole Needs to follow up with endocrinology (3) Atrial fibrillation: Eventually plans on ablation Following with Dr Gallo Continue Tikosyn Continue apixaban (4) Chronic kidney disease: Renally dose medications Avoid nephrotoxins (5) CHF (congestive heart failure), NYHA class III: Holding Lasix due to hypotension No beta steve d/t hypotension (6) Type 2 diabetes mellitus: Avoid hypoglycemia Continue Lantus, dose adjusted Plan DVT ppx: Apixaban Code: Full Attestations Medical Necessity Statement*: Patient presents with near syncope likely related to intravascular volume depletion versus arrythmia producing orthostasis and near syncope with expected hospitalization not to cross two midnights. Coding Level of Care Code Acute Code for Chg Fwd Diagnoses Hypotension, postural I95.1 Hyperthyroidism E05.90 Atrial fibrillation I48.91 Chronic kidney disease N18.9 CHF (congestive heart failure), NYHA class III I50.9 Type 2 diabetes mellitus E11.9
--- NOTE | 2023-07-08 16:49 | PC.PHAR ---
DAUGHTER STATES PT HAS NEW PRESCRIPTION WITH 2 INGREDIENTS-POSSIBLY HYDROCHLOROTHIAZIDE AND SOMETHING ELSE. [facility] FOR [facility]FORMATION ON [facility]. DID NOT HEAR BACK TODAY. 07/08/23
[2023-07-08 17:14] LABS: Free T4 Free Thyroxine 1.99 ng/dL (0.82-1.77); T3 Free 2.2 PG/ML (2.0-4.4); Thyroid Stimulating Hormone 0.01 uIU/mL (0.27-4.20)
[2023-07-08] MEDS: sodium bicarbonate 650 mg Tablet PO (18:43)
[2023-07-08] MEDS: sodium chloride 0.9% 1,000 ML 75 ML IV (18:43)
[2023-07-08] MEDS: guaiFENesin 600 mg Tablet PO (18:44)
[2023-07-08] MEDS: apixaban 5 mg Tablet PO (18:44)
[2023-07-08] MEDS: tamsulosin 0.4 mg Capsule PO (18:44)
[2023-07-08 19:05] LABS: NT Pro B Type Natriuretic Pept 735 pg/mL (0-450); Procalcitonin 0.13 ng/mL (0-0.5)
[2023-07-08] MEDS: budesonide 0.5 mg/2 mL Neb INHALATION (19:36)
[2023-07-08 20:52] LABS: Glucose Point of Care 258 mg/dL (70-110)
[2023-07-08] MEDS: insulin glargine 100 units/1 mL 38 UNIT SUBCUT (21:12)
[2023-07-08] MEDS: atorvastatin 40 mg Tablet 80 MG PO (21:12)
[2023-07-08] MEDS: midodrine 5 mg TABLET PO (21:14)
[2023-07-09] VITALS (15 sets, daily range): BP systolic 108–159; BP diastolic 63–87; PULSE 58–113; RESP 15–24; TEMP 36.4–37; O2SAT 90–96
[2023-07-09] MEDS: metoprolol tartrate 25 mg Tablet PO (03:17)
[2023-07-09 03:41] LABS: Add Urine Microscopic? YES; Bacteria Urine TRACE /hpf; Bilirubin Urine Neg (Negative); Blood Urine Trace (Negative); Glucose Urine UA Norm (Normal); Ketones Urine Negative (Negative); Leukocyte Esterase Urine Trace (Negative); Mucus Urine 1+ /hpf; Nitrate Urine Negative (Negative); Protein Urine Trace (Negative); RBC Urine 0-4 /hpf (0-2); Urine Appearance SL Hazy (CLEAR); Urine Color Yellow (Yellow); Urobilinogen Urine 1 mg/dL (Negative); WBC Urine 0-4 /hpf (0-5); pH Urine 7 (5-7)
[2023-07-09 03:42] LABS: Add Urine Culture? No; Amorphous Sediment Urine 1+ /hpf
[2023-07-09 05:15] LABS: Basophils # 0.1 10^3/uL (0.0-0.1); Basophils % 0.7 %; Eosinophils # 0.2 10^3/uL (0.0-0.8); Eosinophils % 1.9 %; Hematocrit 34.3 % (37-53); Lymphocytes # 1.4 10^3/uL (0.8-4.8); Lymphocytes % 14.7 %; Mean Corpuscular HGB Conc 31.8 g/dL (30-55); Mean Corpuscular Hemoglobin 28.8 pg (27-33); Mean Corpuscular Volume 90.7 fl (82-101); Mean Platelet Volume 11.6 fL (7.4-10.4); Monocytes # 0.8 10^3/uL (0.2-0.9); Monocytes % 8.3 %; Neutrophils # 7.09 10^3/uL (1.8-7.7); Neutrophils % 73.9 %; Nucleated Red Blood Cells % 0 %; Platelet Count 163 10^3/cmm (157-399); Red Blood Count 3.78 10^6/uL (3.85-5.65); Red Cell Distribution Width 13.3 % (12.1-15.1)
--- NOTE | 2023-07-09 05:22 | PC.NURSE ---
patient went into A-fib at 02:20, patient agreed to take refused metoprolol at 03:17. Patient converted back into sinus rhythm at 05:00.
[2023-07-09 05:38] LABS: Anion Gap 17.6 (5-19); Blood Urea Nitrogen 48 mg/dL (8-23); Calcium 8.8 mg/dL (8.5-10.5); Carbon Dioxide 25 mmol/L (22-29); Chloride 100 mmol/L (98-107); Glucose 161 mg/dL (65-115); Magnesium 1.6 mg/dL (1.7-2.3); Osmolality Calculated 304 mOsm/kg (285-295); Phosphorus 3.6 mg/dL (2.5-4.5); Potassium 3.6 mmol/L (3.5-5.1); Sodium 139 mmol/L (136-145)
[2023-07-09] MEDS: aspirin 81 mg EC Tablet PO (05:51)
[2023-07-09] MEDS: calcitriol 0.25 mcg Capsule PO (05:51)
[2023-07-09 07:20] LABS: Glucose Point of Care 150 mg/dL (70-110)
[2023-07-09] MEDS: budesonide 0.5 mg/2 mL Neb INHALATION ×2 (07:42→20:38)
[2023-07-09] MEDS: ezetimibe 10 mg Tablet PO (08:59)
[2023-07-09] MEDS: allopurinol 100 mg Tablet 150 MG PO (09:00)
[2023-07-09] MEDS: midodrine 5 mg TABLET PO ×2 (09:00→16:04)
[2023-07-09] MEDS: PARoxetine 20 mg Tablet 40 MG PO (09:00)
[2023-07-09] MEDS: gabapentin 300 mg Capsule 600 MG PO ×2 (09:00→18:25)
[2023-07-09] MEDS: apixaban 5 mg Tablet PO ×2 (09:01→18:26)
[2023-07-09] MEDS: cetirizine 10 mg Tablet PO (09:01)
[2023-07-09] MEDS: insulin glargine 100 units/1 mL 38 UNIT SUBCUT ×2 (09:01→18:29)
[2023-07-09] MEDS: guaiFENesin 600 mg Tablet PO ×2 (09:01→18:25)
[2023-07-09] MEDS: methIMAzole 5 MG Tablet 20 MG PO (09:01)
[2023-07-09] MEDS: magnesium sulfate premix 2 GM/50 ML PIGGYBACK IV (09:01)
[2023-07-09] MEDS: sodium bicarbonate 650 mg Tablet PO ×2 (09:01→18:26)
--- NOTE | 2023-07-09 10:12 | PM.PN ---
Subjective Subjective: Patient converted to atrial fibrillation with rapid ventricular rate overnight. This morning is in sinus again. He is in bed and has not gotten up yet. He is hypertensive while supine. Denies fevers, chills, nausea or emesis. Medications: Reviewed: Yes Vitals/I&O/Wt Last Vital Signs Temp 97.8 F 07/09/23 07:59 Pulse 70 07/09/23 07:59 Resp 22 H 07/09/23 07:59 BP 159/87 07/09/23 07:59 Pulse Ox 96 07/09/23 07:59 O2 Del Method Room Air 07/09/23 07:59 07/08/23 07/09/23 07/09/23 22:59 06:59 14:59 Intake Total 500 / 500 150 / 650 360 / 360 Output Total 200 / 200 Balance 500 / 500 -50 / 450 360 / 360 Weight last 48 hrs Weight 97.069 kg Weight 105.233 kg Physical Exam Narrative: General: Patient is awake and alert. Lying in bed. Very pleasant. Head: Normocephalic. Atraumatic. EOM intact. Neck: No JVD. Cardiovascular: No gallops. No murmurs. No peripheral edema. Lungs: Clear to auscultation, no use of accessory muscles, no crackles or wheezes. Skin: No jaundice. No rashes. Abdomen: Normal bowel sounds, abdomen soft and nontender. Extremities: No cyanosis or clubbing. Musculoskeletal: No erythematous joints. Neurological: Moves all 4 extremities. No myoclonus. Data 07/09/23 04:34 07/09/23 04:34 A&P Assessment and plan (1) Atrial fibrillation: Atrial fibrillation with rapid ventricular rate noted overnight Following with Dr Gallo Continue Tikosyn Continue apixaban Given complexity of situation, will request cardiology consultation (2) Hypotension, postural: Stop IV fluids Continue midodrine for now Continue holding home Lasix, may benefit dose decrease at discharge Home metoprolol on hold as he is not been regularly taking it Telemetry monitoring Monitor blood pressure closely today (3) Hyperthyroidism: Free thyroxine downtrending Continue methimazole Needs to follow up with endocrinology (4) Chronic kidney disease: Renally dose medications Avoid nephrotoxins (5) CHF (congestive heart failure), NYHA class III: Cardiology consult (6) Type 2 diabetes mellitus: Avoid hypoglycemia Continue Lantus Plan DVT ppx: Apixaban Code: Full Attestations Medical Necessity Statement*: Patient requires ongoing hospitalization for titration of blood pressure and heart rate medications, telemetry, and supportive care. Coding Level of Care Code Acute Code for g Fwd Diagnoses Atrial fibrillation I48.91 Hypotension, postural I95.1 Hyperthyroidism E05.90 Chronic kidney disease N18.9 CHF (congestive heart failure), NYHA class III I50.9 Type 2 diabetes mellitus E11.9
--- NOTE | 2023-07-09 10:26 | PC.CHAP ---
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 anthropologist physical visit [] Patient/Family/Request visit [] Outpatient visit [] Follow-up visit [] Physician referral [] Code/Alert [x] Routine visit [] Staff referral [] Actively dying [] Patient sleeping [] Family support [] [] Out of room [] Palliative care [] [] Receiving care in room [] Pre-surgical visit [] Trauma [] Long length of stay [] ICU visit [] Other: Relational/Emotional Strength [x] Patient feels connected with others/family/visitors/staff [] Distress [] Loneliness/isolation [] Abandonment Spirituality of Patient [x] Person of Lizbeth [] Attends Confucianism of their Lizbeth [x] Believes in Prayer [] Reads Bible or Voodoo materials [] There are Spiritual issues to be addressed Editor School Photograph Interventions [x] Prayer [x] Active listening [] Non-anxious presence [x] Spiritual/emotional support [] Crisis/trauma care [] Spiritual counseling [] Bereavement support [] Provided bereavement packet [] Provided Bible/devotional materials [] Provided toy/stuffed animal, coloring book to patient or family member [] Provided Communion [] Anointing/[place] [] Salvation [x] Completed spiritual assessment [] Other: Impact on Illness or Injury [] Angry [] Fearful [] Anxious [] Often cries [] Exhaustion [] Unable to work [] Unable to attend taoism [] Unable to walk/stand [] Unable to read [] Unable to drive [] Unable to eat/drink [] Unable to sleep [] Unable to be with family [] Patient intubated [] Other: Summary Time spent with patient 5 min
[2023-07-09 11:25] LABS: Glucose Point of Care 180 mg/dL (70-110)
[2023-07-09 16:56] LABS: Glucose Point of Care 199 mg/dL (70-110)
--- NOTE | 2023-07-09 17:46 | P.CONIM_ITS ---
Providers/Reason For Consult Consulting Physician/Specialty*: LAURI Yoo MD/cardiology Reason for Consult*: Patient with recurrent atrial fibrillation Requesting Physician: Dr. De La Rosa Attending Physician: Blanco De La Rosa MD Primary Care Provider: Luana Villegas MD History of Present Illness History of Present Illness Jonathan Baker is a 73 year old male with a history of atherosclerotic heart diseas and intermittent atrial fibrillation, status post multiple recent hospital admissions/ER visits, is admitted to the hospital this time with low blood pressure/near syncopal episodes. This patient was admitted to hospital on the of last month when he presented with atrial fibrillation and rapid ventricular rate. The arrhythmia was thought to be precipitated with amiodarone induced hyperthyroidism. The amiodarone was discontinued. He was initially treated with a Cardizem and then was switched to Tikosyn. Subsequently he was cardioverted electrically. 10 days ago, he was seen in the emergency room for a an episode of syncope. According to the , he was having bradycardia and hypotension at that time. Based on the emergency room records, patient apparently went out without his oxygen. He was placed back on the oxygen in the emergency room. He did not have any recurrence of symptoms. He was readmitted to the hospital yesterday through the emergency room where he presented with complaints of generalized weakness/dizziness and low blood pressure. According to the , his systolic blood pressure has been running in the 80s and 90s. Sometimes it may go down into the low 70s. The also told us that the patient has been taking? Lisinopril with HCTZ and as needed metoprolol. Apparently the lisinopril with HCTZ is not in the medication list, here in the hospital. He had an episode of atrial fibrillation with rapid ventricular rate, lasting for 3 hours or so, last night. Currently he is back into the sinus rhythm. He has no chest pain or chest tightness. No significant palpitations. No dizziness or syncopal episodes, since the hospital admission. He had a two-vessel coronary bypass surgery in April of 2019 here at [facility] by Dr. Connell. He had a CANTOR to the LAD and radial arterial graft to the diagonal branch of the left anterior descending artery.. He is known to have hypertension, dyslipidemia, statin intolerance, diabetic nephropathy, history of DVT/pulm embolism, status post IVC filter placement. Review of Systems Narrative: CONSTITUTIONAL: No fever or chills. EYES: No blurring of vision or other visual disturbances lately. ENT: No hoarseness of voice, auditory disturbances or sore throat. CARDIOVASCULAR: As mentioned above. RESPIRATORY: No significant cough. GASTROINTESTINAL: No hematemesis or melena. GENITOURINARY: No dysuria or hematuria. INTEGUMENTARY: No skin rashes or history of skin cancer. NEURO: No transient ischemic attacks or amaurosis. PSYCHIATRIC: No history of psychosis or major depression. HEMATOLOGIC: No bleeding disorders or significant anemia. ENDOCRINE: No history of polyuria or polydipsia. MUSCULOSKELETAL: No recent joint pain or swelling. ALLERGY/IMMUNOLOGY: As mentioned above. Medications/Allergies Home Medications Medication Instructions Recorded Confirmed Last Taken Type aspirin 81 mg tablet,delayed 81 mg PO QAM 10/14/19 07/08/23 07/08/23 History release (Adult Low Dose Aspirin) ezetimibe 10 mg tablet 10 mg PO DAILY 10/14/19 07/08/23 07/08/23 History allopurinol 100 mg tablet 150 mg PO DAILY 07/20/22 07/08/23 07/08/23 History cetirizine 10 mg tablet (Zyrtec) 10 mg PO DAILY 07/20/22 07/08/23 07/08/23 History cholecalciferol (vitamin D3) 25 75 mcg PO DAILY 07/20/22 07/08/23 07/08/23 History mcg (1,000 unit) tablet (Vitamin D3) docusate sodium 100 mg capsule 200 mg PO BID 07/20/22 07/08/23 07/08/23 History (Colace) gabapentin 600 mg tablet 600 mg PO BID 07/20/22 07/08/23 07/08/23 History insulin glargine 100 unit/mL 45 unit SUBCUT BID 07/20/22 07/08/23 07/08/23 History subcutaneous solution paroxetine HCl 40 mg tablet (Paxil) 40 mg PO DAILY 07/20/22 07/08/23 07/08/23 History sodium bicarbonate 650 mg tablet 650 mg PO BID 07/20/22 07/08/23 07/08/23 History tamsulosin 0.4 mg capsule (Flomax) 0.4 mg PO QPM 07/20/22 07/08/23 07/07/23 History albuterol sulfate 2.5 mg/3 mL 2.5 mg (3 mL) inhalation Q8H PRN 08/01/22 07/08/23 Unknown Rx (0.083 %) solution for nebulization shortness of breath or wheezing #75 mL calcitriol 0.25 mcg capsule 0.25 mcg PO QAM 10/10/22 07/08/23 07/08/23 History coenzyme Q10 100 mg capsule 100 mg PO DAILY PRN UNKNOWN 10/10/22 07/08/23 02/0 03/24 History flash glucose scanning reader #1 ea 02/11/23 07/08/23 Unknown Rx (FreeStyle Mati 2 [place]) flash glucose sensor (FreeStyle #6 ea 02/11/23 07/08/23 Unknown Rx Mati 2 Sensor kit) apixaban 5 mg tablet (Eliquis) 5 mg PO BID #180 tabs 03/07/23 07/08/23 07/08/23 Rx omega-3 fatty acids 1,000 mg 1,000 mg PO BID 03/07/23 07/08/23 07/08/23 History capsule methimazole 10 mg tablet 20 mg PO DAILY #120 tabs 05/15/23 07/08/23 07/08/23 Rx Tikosyn 250 mcg PO 0900,2100 #60 tabs 06/28/23 07/08/23 07/08/23 Rx furosemide 40 mg tablet (Lasix) 40 mg PO QAM #30 tabs 06/28/23 07/08/23 07/08/23 Rx rosuvastatin 40 mg tablet 40 mg PO BEDTIME #30 tabs 06/28/23 07/08/23 07/07/23 Rx budesonide 0.5 mg/2 mL suspension 0.5 mg inhalation BID.RESPIRATORY 07/08/23 07/08/23 Unknown History for nebulization PRN Shortness Of Breath guaifenesin 600 mg tablet, 600 mg PO BID PRN Congestion 07/08/23 07/08/23 Unknown History extended release 12 hr (Mucinex) metoprolol tartrate 25 mg tablet 25 mg PO BID PRN HIGH BLOOD 07/08/23 07/08/23 Unknown History PRESSURE Allergies Allergy/AdvReac Type Severity Reaction Status Date / Time No Known Allergies Allergy Verified 05/15/23 07:49 Current Medications Generic Name Dose Route Start Last Admin Trade Name Freq PRN Reason Stop Dose Admin Allopurinol 150 mg 07/09/23 09:00 07/09/23 09:00 Allopurinol 100 Mg Tablet PO 150 mg DAILY BEVERLY Administration Apixaban 5 mg 07/08/23 18:24 07/09/23 09:01 Apixaban 5 Mg Tablet PO 5 mg BID BEVERLY Administration Aspirin 81 mg 07/09/23 06:00 07/09/23 05:51 Aspirin 81 Mg Ec Tablet PO 81 mg QAM BEVERLY Administration Atorvastatin Calcium 80 mg 07/08/23 21:00 07/08/23 21:12 Atorvastatin 40 Mg Tablet PO 80 mg BEDTIME BEVERLY Administration Budesonide 0.5 mg 07/08/23 20:00 07/09/23 07:42 Budesonide 0.5 Mg/2 Ml Neb INHALATION 0.5 mg BID.RESPIRATORY BEVERLY Administration Calcitriol 0.25 mcg 07/09/23 06:00 07/09/23 05:51 Calcitriol 0.25 Mcg Capsule PO 0.25 mcg QAM BEVERLY Administration Cetirizine HCl 10 mg 07/09/23 09:00 07/09/23 09:01 Cetirizine 10 Mg Tablet PO 10 mg DAILY BEVERLY Administration Ezetimibe 10 mg 07/09/23 09:00 07/09/23 08:59 Ezetimibe 10 Mg Tablet PO 10 mg DAILY BEVERLY Administration Gabapentin 600 mg 07/09/23 09:00 07/09/23 09:00 Gabapentin 300 Mg Capsule PO 600 mg BID BEVERLY Administration Guaifenesin 600 mg 07/08/23 18:24 07/09/23 09:01 Guaifenesin 600 Mg Tablet PO 600 mg BID BEVERLY Administration Insulin Glargine 38 unit 07/08/23 19:00 07/09/23 09:01 Insulin Glargine 100 Units/1 Ml SUBCUT 38 unit BID BEVERLY Administration Methimazole 20 mg 07/09/23 09:00 07/09/23 09:01 Methimazole 5 Mg Tablet PO 20 mg DAILY BEVERLY Administration Metoprolol Tartrate 25 mg 07/08/23 21:00 07/09/23 03:17 Metoprolol Tartrate 25 Mg Tablet PO 25 mg BID@0900,2100 BEVERLY Administration Non-Formulary Medication 250 mcg 07/08/23 21:00 07/09/23 09:15 Tikosyn PO Not Given 0900,2099 [facility] Paroxetine HCl 40 mg 07/09/23 09:00 07/09/23 09:00 Paroxetine 20 Mg Tablet PO 40 mg DAILY BEVERLY Administration Sodium Bicarbonate 650 mg 07/08/23 18:24 07/09/23 09:01 Sodium Bicarbonate 650 Mg Tablet PO 650 mg BID BEVERLY Administration Tamsulosin HCl 0.4 mg 07/08/23 18:24 07/08/23 18:44 Tamsulosin 0.4 Mg Capsule PO 0.4 mg QPM BEVERLY Administration PFSH Acute PFSH: Medical History Acquired hammertoes of both feet Atherosclerosis Atrial fibrillation Atrial flutter Chronic atrial fibrillation Chronic kidney disease Depressive disorder Essential hypertension Goiter Gout Hyperlipidemia NSTEMI (non-ST elevated myocardial infarction) Onychomycosis PAD (peripheral artery disease) Peripheral neuropathy Right middle lobe pulmonary nodule Thyroid nodule Type 2 diabetes mellitus Surgical History H/O knee surgery History of cholecystectomy Hx of CABG S/P hernia surgery Family History Father Myocardial infarct Mother Stroke Other Family history of premature coronary artery disease Social History Smoking and tobacco/nicotine status: former use of tobacco/nicotine Quit status (tobacco/nicotine): has quit using Year quit tobacco: 1971 Former quit date comment: 1ppd x 20 years Vitals/I&O/Wt Last Vital Signs Temp 97.6 F 07/09/23 12:00 Pulse 58 L 07/09/23 16:00 Resp 22 H 07/09/23 16:00 BP 147/80 07/09/23 16:00 Pulse Ox 96 07/09/23 16:00 O2 Del Method Room Air 07/09/23 16:00 07/09/23 07/09/23 07/09/23 06:59 14:59 22:59 Intake Total 150 / 650 720 / 720 Output Total 200 / 200 200 / 200 Balance -50 / 450 520 / 520 Weight last 48 hrs Weight 214 lb Weight 232 lb Physical Exam Narrative: GENERAL: The patient is alert and oriented times three. Not in any acute distress. HEENT: No significant pallor, icterus or lymphadenopathy.Oral cavity: There are no mucous membrane lesions. NECK: Trachea appears to be central. No masses noted. No JVD or thyromegaly appreciated. RESPIRATORY: Chest is symmetrical. No intercostals muscle retraction or any accessory muscle activation. There is no chest wall tenderness. Breath sounds are heard bilaterally. No rales or rhonchi heard. No evidence of any consolidation. BREASTS: Deferred. HEART: The heart sounds are normal. No S3 or S4. Short systolic murmur in the lower sternal border. No pericardial rub ABDOMEN: No vessel pulsations or distention. No tenderness. No organomegaly appreciated. Bowel sounds are normally heard. : Deferred. RECTAL: Deferred. LYMPHATIC: No lymphadenopathy noted in the neck. EXTREMITIES: No edema or cyanosis. No clubbing. MUSCULOSKELETAL: No acute joint deformities or swelling SKIN: There are no significant rashes or ecchymosis NEUROPSYCHIATRIC: The patient is alert and oriented x3. Appears to be in a good mood. No tremors or rigidity noted. Data 07/09/23 04:34 07/10/23 05:40 Other Labs: Laboratory Last Values WBC 9.60 10^3/uL (3.29-11.43) 07/09/23 04:34 RBC 3.78 10^6/uL (3.85-5.65) L 07/09/23 04:34 Hgb 10.90 g/dL (11.27-16.99) L 07/09/23 04:34 Hct 34.3 % (37-53) L 07/09/23 04:34 MCV 90.7 fl (82-101) 07/09/23 04:34 MCH 28.8 pg (27-33) 07/09/23 04:34 MCHC 31.8 g/dL (30-55) 07/09/23 04:34 RDW 13.3 % (12.1-15.1) 07/09/23 04:34 Plt Count 163 10^3/cmm (157-399) 07/09/23 04:34 MPV 11.6 fL (7.4-10.4) H 07/09/23 04:34 Neut % (Auto) 73.9 % 07/09/23 04:34 Lymph % (Auto) 14.7 % 07/09/23 04:34 [place] % (Auto) 8.3 % 07/09/23 04:34 Eos % (Auto) 1.9 % 07/09/23 04:34 Baso % (Auto) 0.7 % 07/09/23 04:34 Neut # (Auto) 7.09 10^3/uL (1.8-7.7) 07/09/23 04:34 Lymph # (Auto) 1.4 10^3/uL (0.8-4.8) 07/09/23 04:34 [place] # (Auto) 0.8 10^3/uL (0.2-0.9) 07/09/23 04:34 Eos # (Auto) 0.2 10^3/uL (0.0-0.8) 07/09/23 04:34 Baso # (Auto) 0.1 10^3/uL (0.0-0.1) 07/09/23 04:34 Nucleated RBC % (auto) 0 % 07/09/23 04:34 Nucleated RBCs # 0.0 /100WBC 07/09/23 04:34 PT 19.20 SECONDS (12.1-14.9) H 07/08/23 12:45 INR 1.56 (0.8-1.2) H 07/08/23 12:45 Sodium 139 mmol/L (136-145) 07/09/23 04:34 Potassium 3.6 mmol/L (3.5-5.1) 07/09/23 04:34 Chloride 100 mmol/L (98-107) 07/09/23 04:34 Carbon Dioxide 25 mmol/L (22-29) 07/09/23 04:34 Anion Gap 17.6 (5-19) 07/09/23 04:34 BUN 48 mg/dL (8-23) H 07/09/23 04:34 Creatinine 2.5 mg/dL (0.7-1.2) H 07/09/23 04:34 GFR Calculation Not Reportable 07/09/23 04:34 Glucose 161 mg/dL (65-115) H 07/09/23 04:34 POC Glucose 199 mg/dL (70-110) H 07/09/23 16:53 Calculated Osmolality 304 mOsm/kg (285-295) H 07/09/23 04:34 Calcium 8.8 mg/dL (8.5-10.5) 07/09/23 04:34 Phosphorus 3.6 mg/dL (2.5-4.5) 07/09/23 04:34 Magnesium 1.6 mg/dL (1.7-2.3) L 07/09/23 04:34 Total Bilirubin 0.8 mg/dL (0.15-1.2) 07/08/23 12:45 AST 28 U/L (0-40) 07/08/23 12:45 ALT 47 U/L (0-41) H 07/08/23 12:45 Alkaline Phosphatase 128 U/L (40-130) 07/08/23 12:45 NT-Pro-B Natriuret Pep 735 pg/mL (0-450) H 07/08/23 12:45 Total Protein 7.2 g/dL (6.6-8.7) 07/08/23 12:45 Albumin 4.0 g/dL (3.5-5.2) 07/08/23 12:45 Globulin 3.2 g/dL (1.3-4.6) 07/08/23 12:45 Procalcitonin 0.13 ng/mL (0-0.5) 07/08/23 12:45 TSH 0.01 uIU/mL (0.27-4.20) L 07/08/23 12:45 Free T4 1.99 ng/dL (0.82-1.77) H 07/08/23 12:45 Free T3 2.2 PG/ML (2.0-4.4) 07/08/23 12:45 Urine Color Yellow (Yellow) 07/09/23 02:18 Urine Appearance Sl hazy (CLEAR) A 07/09/23 02:18 Urine pH 7 (5-7) 07/09/23 02:18 Ur Specific [place] 1.010 (1.005-1.030) 07/09/23 02:18 Urine Protein Trace (Negative) 07/09/23 02:18 Urine Glucose (UA) Norm (Normal) 07/09/23 02:18 Urine Ketones Negative (Negative) 07/09/23 02:18 Urine Blood Trace (Negative) H 07/09/23 02:18 Urine Nitrate Negative (Negative) 07/09/23 02:18 Urine Bilirubin Neg (Negative) 07/09/23 02:18 Urine Urobilinogen 1 mg/dL (Negative) H 07/09/23 02:18 Ur Leukocyte Esterase Trace (Negative) H 07/09/23 02:18 Urine RBC 0-4 /hpf (0-2) H 07/09/23 02:18 Urine WBC 0-4 /hpf (0-5) H 07/09/23 02:18 Ur Squamous Epith Cells None /hpf (0-5) 07/09/23 02:18 Amorphous Sediment 1+ /hpf 07/09/23 02:18 Urine Bacteria Trace /hpf (NONE) 07/09/23 02:18 Urine Mucus 1+ /hpf 07/09/23 02:18 EKG 1: My Interpretation: Normal sinus rhythm with incomplete right bundle branch block pattern. Some nonspecific ST changes. A&P Assessment and plan (1) Hypotension, postural: The etiology of the hypotension is not clear at this time. If he is taking lisinopril/HCTZ, that could be a contributing factor. Currently the blood pressure is elevated. (2) CHF (congestive heart failure), NYHA class III: Clinically appears to be compensated. May continue on the current medications. (3) Chronic kidney disease: The kidney function appears to be stable. Also has mild anemia. (4) Hyperthyroidism: Clinically euthyroid. May continue on the current medications. (5) Atrial fibrillation: Currently in sinus rhythm. The QTc is around 490. The change from the baseline QTc is less than 15%. So may continue on the current dose of the Tikosyn. The lisinopril/HCTZ may be held at this point. Plan Based on the clinical progress, further recommendations will be made. Because of the recurrence of atrial fibrillation may need to consider catheter-based option for further management of the arrhythmia. Thank you for the opportunity to evaluate patient make these recommendations. Consult Attestations Medical Necessity Statement: Patient requires continued hospital stay for close monitoring and further management Coding Level of Care Code 76441 Diagnoses Hypotension, postural I95.1 CHF (congestive heart failure), NYHA class III I50.9 Chronic kidney disease N18.9 Hyperthyroidism E05.90 Atrial fibrillation I48.91
[2023-07-09] MEDS: midodrine 5 mg TABLET 2.5 MG PO (18:26)
[2023-07-09] MEDS: insulin lispro 100 unit/1 mL SUBCUT ×2 (18:26→21:09)
[2023-07-09] MEDS: tamsulosin 0.4 mg Capsule PO (18:26)
[2023-07-09] MEDS: atorvastatin 40 mg Tablet 80 MG PO (20:27)
[2023-07-09 20:54] LABS: Glucose Point of Care 222 mg/dL (70-110)
--- NOTE | 2023-07-09 22:36 | PC.NURSE ---
Patient refused 2100 dose of metoprolol. Patient said that he is only suppose to take it if his heart rate goes crazy fast . Patients heart rate was 66. Provider notified.
[2023-07-10] VITALS (12 sets, daily range): BP systolic 109–136; BP diastolic 57–72; PULSE 60–77; RESP 16–20; TEMP 36.6; O2SAT 92–96
[2023-07-10] MEDS: calcitriol 0.25 mcg Capsule PO (05:21)
[2023-07-10] MEDS: aspirin 81 mg EC Tablet PO (05:21)
[2023-07-10 06:12] LABS: Magnesium 1.8 mg/dL (1.7-2.3)
[2023-07-10 06:15] LABS: Albumin Level 3.7 g/dL (3.5-5.2); Anion Gap 14.8 (5-19); Blood Urea Nitrogen 43 mg/dL (8-23); Calcium 9.1 mg/dL (8.5-10.5); Carbon Dioxide 28 mmol/L (22-29); Chloride 102 mmol/L (98-107); Glucose 67 mg/dL (65-115); Phosphorus 4.4 mg/dL (2.5-4.5); Potassium 3.8 mmol/L (3.5-5.1); Sodium 141 mmol/L (136-145)
[2023-07-10 06:22] LABS: Glucose Point of Care 67 mg/dL (70-110)
--- NOTE | 2023-07-10 06:32 | PC.NURSE ---
Patients POC at 0604 was 67. He is not having any symptoms at this time. Patient is offered an applesauce which he decided to eat right away.
[2023-07-10] MEDS: budesonide 0.5 mg/2 mL Neb INHALATION ×2 (08:20→20:20)
[2023-07-10] MEDS: ezetimibe 10 mg Tablet PO (08:37)
[2023-07-10] MEDS: PARoxetine 20 mg Tablet 40 MG PO (08:38)
[2023-07-10] MEDS: insulin glargine 100 units/1 mL 28 UNIT SUBCUT ×2 (08:38→18:00)
[2023-07-10] MEDS: allopurinol 100 mg Tablet 150 MG PO (08:38)
[2023-07-10] MEDS: gabapentin 300 mg Capsule 600 MG PO ×2 (08:38→17:59)
[2023-07-10] MEDS: cetirizine 10 mg Tablet PO (08:39)
[2023-07-10] MEDS: guaiFENesin 600 mg Tablet PO ×2 (08:39→17:59)
[2023-07-10] MEDS: apixaban 5 mg Tablet PO ×2 (08:40→17:59)
[2023-07-10] MEDS: methIMAzole 5 MG Tablet 20 MG PO (08:40)
[2023-07-10] MEDS: sodium bicarbonate 650 mg Tablet PO ×2 (08:40→17:59)
[2023-07-10] MEDS: FUROsemide 20 mg Tablet PO (08:42)
--- NOTE | 2023-07-10 10:32 | PC.CHAP ---
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 costumer visit [x] Patient/Family/Request visit [] Outpatient visit [] Follow-up visit [] Physician referral [] Code/Alert [] Routine visit [] Staff referral [] Actively dying [] Patient sleeping [] Family support [] [] Out of room [] Palliative care [] [] Receiving care in room [] Pre-surgical visit [] Trauma [] Long length of stay [] ICU visit [] Other: Relational/Emotional Strength [x] Patient feels connected with others/family/visitors/staff [] Distress [] Loneliness/isolation [] Abandonment Spirituality of Patient [x] Person of Lizbeth [] Attends Sabianism of their Lizbeth [x] Believes in Prayer [] Reads Bible or Uatsdin materials [] There are Spiritual issues to be addressed Quality Process Auditor Interventions [x] Prayer [x] Active listening [] Non-anxious presence [] Spiritual/emotional support [] Crisis/trauma care [] Spiritual counseling [] Bereavement support [] Provided bereavement packet [] Provided Bible/devotional materials [] Provided toy/stuffed animal, coloring book to patient or family member [] Provided Communion [] Anointing/[place] [] Salvation [] Completed spiritual assessment [] Other: Impact on Illness or Injury [] Angry [] Fearful [] Anxious [] Often cries [] Exhaustion [] Unable to work [] Unable to attend jainism [] Unable to walk/stand [] Unable to read [] Unable to drive [] Unable to eat/drink [] Unable to sleep [] Unable to be with family [] Patient intubated [] Other: Summary Time spent with patient 20 viet
--- NOTE | 2023-07-10 11:40 | PM.PN ---
Subjective Subjective: Patient evaluated by cardiology yesterday. He reports last night went much better. He was able to get sleep and heart rate better controlled. He has yet to be up yet this morning. Denies fevers, chills, nausea or emesis. Medications: Reviewed: Yes Vitals/I&O/Wt Last Vital Signs Temp 97.9 F 07/10/23 08:00 Pulse 77 07/10/23 08:00 Resp 16 07/10/23 08:00 BP 136/72 07/10/23 08:00 Pulse Ox 96 07/10/23 08:00 O2 Del Method Room Air 07/10/23 08:00 07/09/23 07/10/23 07/10/23 22:59 06:59 14:59 Intake Total 290 / 1010 100 / 1110 200 / 200 Output Total 0 / 200 Balance 290 / 810 100 / 910 200 / 200 Weight last 48 hrs Weight 97.976 kg Weight 97.069 kg Weight 105.233 kg Physical Exam Narrative: General: Patient is awake and alert. Conversational. Head: Normocephalic. Atraumatic. EOM intact. Neck: No JVD. Cardiovascular: No gallops. No murmurs. No peripheral edema. Lungs: Clear to auscultation, no use of accessory muscles, no crackles or wheezes. Skin: No jaundice. No rashes. Abdomen: Normal bowel sounds, abdomen soft and nontender. Extremities: No cyanosis or clubbing. Musculoskeletal: No erythematous joints. Neurological: Moves all 4 extremities. No myoclonus. Data 07/09/23 04:34 07/10/23 05:40 A&P Assessment and plan (1) Atrial fibrillation: Following with Dr Gallo as outpt, Dr Yoo consulted and following inpt Continue Tikosyn Continue apixaban Telemetry monitoring (2) Hypotension, postural: Hold midodrine today Hold metoprolol today per pt preference Restart Lasix at reduced dose, trial of 20 mg daily rather than home dose of 40 mg Monitor blood pressure closely Encourage OOB and ambulation (3) Hyperthyroidism: Free thyroxine downtrending Continue methimazole Needs to follow up with endocrinology (4) Chronic kidney disease: Renally dose medications Avoid nephrotoxins (5) CHF (congestive heart failure), NYHA class III: Cardiology evaluated, appreciate reccs (6) Type 2 diabetes mellitus: Avoid hypoglycemia AM sugar is low, Lantus dose decreased SSI Plan DVT ppx: Apixaban Code: Full Attestations Medical Necessity Statement*: Patient requires ongoing hospitalization for telemetry, serial labs, cardiac medication titration, and cardiology care. Coding Level of Care Code Acute Code for g Fwd Diagnoses Atrial fibrillation I48.91 Hypotension, postural I95.1 Hyperthyroidism E05.90 Chronic kidney disease N18.9 CHF (congestive heart failure), NYHA class III I50.9 Type 2 diabetes mellitus E11.9
[2023-07-10 11:58] LABS: Glucose Point of Care 185 mg/dL (70-110)
[2023-07-10] MEDS: insulin lispro 100 unit/1 mL SUBCUT ×2 (13:43→21:58)
--- NOTE | 2023-07-10 13:57 | PM.PN ---
Subjective Subjective: The patient is feeling better. He has been ambulating on telemetry without any significant symptoms. Telemetry shows sinus rhythm. No recurrence of atrial fibrillation. Medications: Medication Review Details: Current Medications Acetaminophen (Acetaminophen 325 Mg Tablet) 650 mg PO Q6H PRN PRN Reason: Mild/Mod Pain Or Temp >/= 101 Allopurinol (Allopurinol 100 Mg Tablet) 150 mg PO DAILY [facility] Last Admin: 07/10/23 08:38 Dose: 150 mg Apixaban (Apixaban 5 Mg Tablet) 5 mg PO BID [facility] Last Admin: 07/10/23 08:40 Dose: 5 mg Aspirin (Aspirin 81 Mg Ec Tablet) 81 mg PO QAM [facility] Last Admin: 07/10/23 05:21 Dose: 81 mg Atorvastatin Calcium (Atorvastatin 40 Mg Tablet) 80 mg PO BEDTIME [facility] Last Admin: 07/09/23 20:27 Dose: 80 mg Budesonide (Budesonide 0.5 Mg/2 Ml Neb) 0.5 mg INHALATION BID.RESPIRATORY [facility] Last Admin: 07/10/23 08:20 Dose: 0.5 mg Calcitriol (Calcitriol 0.25 Mcg Capsule) 0.25 mcg PO QAM [facility] Last Admin: 07/10/23 05:21 Dose: 0.25 mcg Cetirizine HCl (Cetirizine 10 Mg Tablet) 10 mg PO DAILY [facility] Last Admin: 07/10/23 08:39 Dose: 10 mg Dextrose (Dextrose 50% Syringe 50 Ml) 25 ml IVP ONCE PRN; Protocol PRN Reason: hypoglycemia protocol Dextrose (Dextrose 50% Syringe 50 Ml) 50 ml IVP PRN PRN; Protocol PRN Reason: hypoglycemia protocol Ezetimibe (Ezetimibe 10 Mg Tablet) 10 mg PO DAILY [facility] Last Admin: 07/10/23 08:37 Dose: 10 mg Furosemide (Furosemide 20 Mg Tablet) 20 mg PO DAILY@0800 [facility] Last Admin: 07/10/23 08:42 Dose: 20 mg Gabapentin (Gabapentin 300 Mg Capsule) 600 mg PO BID [facility] Last Admin: 07/10/23 08:38 Dose: 600 mg Glucagon (Glucagon 1 Mg/Ml Inj 1 Ml) 1 mg IM ONCE PRN; Protocol PRN Reason: Adult Acute Hypoglycemia Prot. Guaifenesin (Guaifenesin 600 Mg Tablet) 600 mg PO BID [facility] Last Admin: 07/10/23 08:39 Dose: 600 mg Dextrose (D5w) 500 mls @ 100 mls/hr IV ONCE PRN; Protocol PRN Reason: Adult Acute Hypoglycemia Prot Insulin Glargine (Insulin Glargine 100 Units/1 Ml) 28 unit SUBCUT BID [facility] Last Admin: 07/10/23 08:38 Dose: 28 unit Insulin Human Lispro (Insulin Lispro 100 Unit/1 Ml) 0 unit SUBCUT WM&BEDTIME [facility]; Protocol Last Admin: 07/10/23 13:43 Dose: 8 unit Methimazole (Methimazole 5 Mg Tablet) 20 mg PO DAILY [facility] Last Admin: 07/10/23 08:40 Dose: 20 mg Metoprolol Tartrate (Metoprolol Tartrate 25 Mg Tablet) 25 mg PO BID@0900,2100 [facility] Last Admin: 07/09/23 22:36 Dose: Not Given Midodrine (Midodrine 5 Mg Tablet) 2.5 mg PO BID [facility] Last Admin: 07/09/23 18:26 Dose: 2.5 mg Non-Formulary Medication (Tikosyn) 250 mcg PO 0900,2100 [facility] Last Admin: 07/10/23 08:41 Dose: 250 mcg Ondansetron HCl (Ondansetron 4 Mg Tablet) 4 mg PO Q8H PRN PRN Reason: NAUSEA Paroxetine HCl (Paroxetine 20 Mg Tablet) 40 mg PO DAILY [facility] Last Admin: 07/10/23 08:38 Dose: 40 mg Sodium Bicarbonate (Sodium Bicarbonate 650 Mg Tablet) 650 mg PO BID [facility] Last Admin: 07/10/23 08:40 Dose: 650 mg Tamsulosin HCl (Tamsulosin 0.4 Mg Capsule) 0.4 mg PO QPM [facility] Last Admin: 07/09/23 18:26 Dose: 0.4 mg Vitals/I&O/Wt Last Vital Signs Temp 97.9 F 07/10/23 08:00 Pulse 62 07/10/23 11:46 Resp 20 H 07/10/23 11:46 BP 129/66 07/10/23 11:46 Pulse Ox 96 07/10/23 11:46 O2 Del Method Room Air 07/10/23 11:46 07/09/23 07/10/23 07/10/23 22:59 06:59 14:59 Intake Total 290 / 1010 100 / 1110 400 / 400 Output Total 0 / 200 Balance 290 / 810 100 / 910 400 / 400 Weight last 48 hrs Weight 216 lb Weight 214 lb Physical Exam Narrative: GENERAL: The patient is alert and oriented times three. Not in any acute distress. HEENT: No significant pallor, icterus or lymphadenopathy.Oral cavity: There are no mucous membrane lesions. NECK: Trachea appears to be central. No masses noted. No JVD or thyromegaly appreciated. RESPIRATORY: Chest is symmetrical. No intercostals muscle retraction or any accessory muscle activation. There is no chest wall tenderness. Breath sounds are heard bilaterally. No rales or rhonchi heard. No evidence of any consolidation. BREASTS: Deferred. HEART: The heart sounds are normal. No S3 or S4. Short systolic murmur in the lower sternal border. No pericardial rub ABDOMEN: No vessel pulsations or distention. No tenderness. No organomegaly appreciated. Bowel sounds are normally heard. : Deferred. RECTAL: Deferred. LYMPHATIC: No lymphadenopathy noted in the neck. EXTREMITIES: No edema or cyanosis. No clubbing. MUSCULOSKELETAL: No acute joint deformities or swelling SKIN: There are no significant rashes or ecchymosis NEUROPSYCHIATRIC: The patient is alert and oriented x3. Appears to be in a good mood. No tremors or rigidity noted. Data 07/09/23 04:34 07/10/23 05:40 A&P Assessment and plan (1) Hypotension, postural: Currently the blood pressure is in the normal range. Patient is on midodrine. This may be discontinued. The dose of Lasix was cut back to 20 mg daily. Patient also is off the metoprolol, even from home. Continue monitoring the blood pressure. (2) CHF (congestive heart failure), NYHA class III: Clinically appears to be compensated. May continue on the current medications. (3) Chronic kidney disease: The kidney function appears to be stable. Also has mild anemia. (4) Hyperthyroidism: Clinically euthyroid. May continue on the current medications. (5) Atrial fibrillation: Currently in sinus rhythm. The QTc is around 490. The change from the baseline QTc is less than 15%. So may continue on the current dose of the Tikosyn. Plan Patient may benefit from catheter-based option. I contacted Dr. Ahmadi. Dr. Ahmadi's office will make arrangements to have this done as early as possible. Discussed with Dr. De La Rosa Attestations Medical Necessity Statement*: Patient requires continued hospital stay for close monitoring and further management Coding Level of Care Code 28605 Diagnoses Hypotension, postural I95.1 CHF (congestive heart failure), NYHA class III I50.9 Chronic kidney disease N18.9 Hyperthyroidism E05.90 Atrial fibrillation I48.91
[2023-07-10 16:19] LABS: Glucose Point of Care 136 mg/dL (70-110)
[2023-07-10] MEDS: tamsulosin 0.4 mg Capsule PO (17:59)
[2023-07-10 21:53] LABS: Glucose Point of Care 176 mg/dL (70-110)
[2023-07-10] MEDS: atorvastatin 40 mg Tablet 80 MG PO (21:57)
[2023-07-11] VITALS (7 sets, daily range): BP systolic 116–169; BP diastolic 58–84; PULSE 73–83; RESP 16–19; TEMP 36.8–36.9; O2SAT 91–99
[2023-07-11 01:34] LABS: Glucose Point of Care 70 mg/dL (70-110)
[2023-07-11 04:38] LABS: Magnesium 1.6 mg/dL (1.7-2.3)
[2023-07-11 04:39] LABS: Albumin Level 3.7 g/dL (3.5-5.2); Anion Gap 18.2 (5-19); Blood Urea Nitrogen 36 mg/dL (8-23); Calcium 8.9 mg/dL (8.5-10.5); Carbon Dioxide 24 mmol/L (22-29); Chloride 100 mmol/L (98-107); Glucose 164 mg/dL (65-115); Phosphorus 4.2 mg/dL (2.5-4.5); Potassium 4.2 mmol/L (3.5-5.1); Sodium 138 mmol/L (136-145)
[2023-07-11] MEDS: aspirin 81 mg EC Tablet PO (05:34)
[2023-07-11] MEDS: calcitriol 0.25 mcg Capsule PO (05:34)
[2023-07-11 07:06] LABS: Glucose Point of Care 168 mg/dL (70-110)
[2023-07-11] MEDS: magnesium sulfate premix 2 GM/50 ML PIGGYBACK IV (07:41)
[2023-07-11] MEDS: FUROsemide 20 mg Tablet PO (07:41)
[2023-07-11] MEDS: budesonide 0.5 mg/2 mL Neb INHALATION (08:35)
[2023-07-11] MEDS: insulin glargine 100 units/1 mL 28 UNIT SUBCUT (08:41)
[2023-07-11] MEDS: insulin lispro 100 unit/1 mL SUBCUT (08:41)
[2023-07-11] MEDS: sodium bicarbonate 650 mg Tablet PO (08:42)
[2023-07-11] MEDS: methIMAzole 5 MG Tablet 20 MG PO (08:42)
[2023-07-11] MEDS: cetirizine 10 mg Tablet PO (08:43)
[2023-07-11] MEDS: apixaban 5 mg Tablet PO (08:43)
[2023-07-11] MEDS: ezetimibe 10 mg Tablet PO (08:43)
[2023-07-11] MEDS: guaiFENesin 600 mg Tablet PO (08:43)
[2023-07-11] MEDS: PARoxetine 20 mg Tablet 40 MG PO (08:43)
[2023-07-11] MEDS: allopurinol 100 mg Tablet 150 MG PO (08:43)
[2023-07-11] MEDS: gabapentin 300 mg Capsule 600 MG PO (08:44)
--- NOTE | 2023-07-11 10:04 | PM.DCS ---
Discharge Providers Date of Admission: 07/08/23 15:38 Date of Discharge: July 11, 2023 Attending Provider at Admission: Blanco De La Rosa MD Attending Provider at Discharge: Blanco De La Rosa MD Consults: Cardiology Primary Care Provider: Luana Villegas MD Diagnoses at Discharge Discharge Diagnosis (1) Hypotension, postural: Status: Acute (2) CHF (congestive heart failure), NYHA class III: Status: Acute (3) Chronic kidney disease: Status: Acute (4) Hyperthyroidism: Status: Chronic (5) Atrial fibrillation: Status: Acute Reason for Visit Reason for Visit: dizzy Hospital Course Hospital Course Jonathan Baker is a 73 year old male with a past medical history significant for atrial flutter/fibrillation, 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 Due to concern for congestive heart failure he was treated with conservative IV fluids with improvement in blood pressure. Hospital course was further complicated by atrial fibrillation with rapid ventricular rate. He eventually returned to sinus rhythm. Cardiology consulted and followed. His Lasix dose was decreased to 20 mg daily. He was continued on Tikosyn for rhythm control. He is to follow-up with electrophysiology for consideration of ablation. In the interim he is to follow-up with his primary care physician as well as outpatient entry level software engineer for further management. Patient also educated to follow-up with his engineering and operations director considering recent thyroid ultrasound findings. Patient remained in sinus rhythm with improvement in blood pressure on current regiment. Physical Exam Narrative: General: Patient is awake and alert.? Very pleasant. Head:? Normocephalic. Atraumatic. Neck: No JVD. Cardiovascular:? No gallops. No murmurs. No peripheral edema. Lungs: Clear to auscultation, no use of accessory muscles, no crackles or wheezes. Skin: No jaundice. No rashes. Abdomen: Normal bowel sounds, abdomen soft and nontender. Extremities: No cyanosis or clubbing. Musculoskeletal: No erythematous joints. Neurological: Moves all 4 extremities. No myoclonus. Discharge Data Studies Completed and Pending Completed Studies During Hospitalization Category Date Time Status XR chest 1V portable [id number] Stat Exams 07/08/23 11:56 Completed Radiology Impressions Chest X-Ray 07/08/23 11:56 IMPRESSION: 1. Pleuroparenchymal scarring in the left base is not appreciably changed. No definite acute component. 2. Essentially unchanged chest x-ray. Laboratory Results WBC 9.60 10^3/uL (3.29-11.43) 07/09/23 04:34 RBC 3.78 10^6/uL (3.85-5.65) L 07/09/23 04:34 Hgb 10.90 g/dL (11.27-16.99) L 07/09/23 04:34 Hct 34.3 % (37-53) L 07/09/23 04:34 MCV 90.7 fl (82-101) 07/09/23 04:34 MCH 28.8 pg (27-33) 07/09/23 04:34 MCHC 31.8 g/dL (30-55) 07/09/23 04:34 RDW 13.3 % (12.1-15.1) 07/09/23 04:34 Plt Count 163 10^3/cmm (157-399) 07/09/23 04:34 MPV 11.6 fL (7.4-10.4) H 07/09/23 04:34 Neut % (Auto) 73.9 % 07/09/23 04:34 Lymph % (Auto) 14.7 % 07/09/23 04:34 [place] % (Auto) 8.3 % 07/09/23 04:34 Eos % (Auto) 1.9 % 07/09/23 04:34 Baso % (Auto) 0.7 % 07/09/23 04:34 Neut # (Auto) 7.09 10^3/uL (1.8-7.7) 07/09/23 04:34 Lymph # (Auto) 1.4 10^3/uL (0.8-4.8) 07/09/23 04:34 [place] # (Auto) 0.8 10^3/uL (0.2-0.9) 07/09/23 04:34 Eos # (Auto) 0.2 10^3/uL (0.0-0.8) 07/09/23 04:34 Baso # (Auto) 0.1 10^3/uL (0.0-0.1) 07/09/23 04:34 Nucleated RBC % (auto) 0 % 07/09/23 04:34 Nucleated RBCs # 0.0 /100WBC 07/09/23 04:34 PT 19.20 SECONDS (12.1-14.9) H 07/08/23 12:45 INR 1.56 (0.8-1.2) H 07/08/23 12:45 Sodium 138 mmol/L (136-145) 07/11/23 03:20 Potassium 4.2 mmol/L (3.5-5.1) 07/11/23 03:20 Chloride 100 mmol/L (98-107) 07/11/23 03:20 Carbon Dioxide 24 mmol/L (22-29) 07/11/23 03:20 Anion Gap 18.2 (5-19) 07/11/23 03:20 BUN 36 mg/dL (8-23) H 07/11/23 03:20 Creatinine 2.1 mg/dL (0.7-1.2) H 07/11/23 03:20 GFR Calculation Not Reportable 07/11/23 03:20 Glucose 164 mg/dL (65-115) H 07/11/23 03:20 POC Glucose 168 mg/dL (70-110) H 07/11/23 06:51 Calculated Osmolality 304 mOsm/kg (285-295) H 07/09/23 04:34 Calcium 8.9 mg/dL (8.5-10.5) 07/11/23 03:20 Phosphorus 4.2 mg/dL (2.5-4.5) 07/11/23 03:20 Magnesium 1.6 mg/dL (1.7-2.3) L 07/11/23 03:20 Total Bilirubin 0.8 mg/dL (0.15-1.2) 07/08/23 12:45 AST 28 U/L (0-40) 07/08/23 12:45 ALT 47 U/L (0-41) H 07/08/23 12:45 Alkaline Phosphatase 128 U/L (40-130) 07/08/23 12:45 NT-Pro-B Natriuret Pep 735 pg/mL (0-450) H 07/08/23 12:45 Total Protein 7.2 g/dL (6.6-8.7) 07/08/23 12:45 Albumin 3.7 g/dL (3.5-5.2) 07/11/23 03:20 Globulin 3.2 g/dL (1.3-4.6) 07/08/23 12:45 Procalcitonin 0.13 ng/mL (0-0.5) 07/08/23 12:45 TSH 0.01 uIU/mL (0.27-4.20) L 07/08/23 12:45 Free T4 1.99 ng/dL (0.82-1.77) H 07/08/23 12:45 Free T3 2.2 PG/ML (2.0-4.4) 07/08/23 12:45 Urine Color Yellow (Yellow) 07/09/23 02:18 Urine Appearance Sl hazy (CLEAR) A 07/09/23 02:18 Urine pH 7 (5-7) 07/09/23 02:18 Ur Specific [place] 1.010 (1.005-1.030) 07/09/23 02:18 Urine Protein Trace (Negative) 07/09/23 02:18 Urine Glucose (UA) Norm (Normal) 07/09/23 02:18 Urine Ketones Negative (Negative) 07/09/23 02:18 Urine Blood Trace (Negative) H 07/09/23 02:18 Urine Nitrate Negative (Negative) 07/09/23 02:18 Urine Bilirubin Neg (Negative) 07/09/23 02:18 Urine Urobilinogen 1 mg/dL (Negative) H 07/09/23 02:18 Ur Leukocyte Esterase Trace (Negative) H 07/09/23 02:18 Urine RBC 0-4 /hpf (0-2) H 07/09/23 02:18 Urine WBC 0-4 /hpf (0-5) H 07/09/23 02:18 Ur Squamous Epith Cells None /hpf (0-5) 07/09/23 02:18 Amorphous Sediment 1+ /hpf 07/09/23 02:18 Urine Bacteria Trace /hpf (NONE) 07/09/23 02:18 Urine Mucus 1+ /hpf 07/09/23 02:18 Vitals Last Vital Signs Temp 98.3 F 07/11/23 09:18 Pulse 78 07/11/23 09:18 Resp 18 07/11/23 09:18 BP 169/84 07/11/23 09:18 Pulse Ox 99 07/11/23 09:18 O2 Del Method Room Air 07/11/23 09:18 Discharge Plan Discharge Patient Disposition: Home Condition: Stable Prescriptions: New furosemide 20 mg Tablet 20 mg PO DAILY@0800 Qty: 30 1RF Continued aspirin [Adult Low Dose Aspirin] 81 mg tablet,delayed release (DR/EC) 81 mg PO QAM ezetimibe 10 mg tablet 10 mg PO DAILY (DME) FreeStyle Mati 2 Sensor Kit See Rx Instructions .Route Qty: 6 0RF Rx Instructions: As directed (DME) FreeStyle Mati 2 [place] Misc See Rx Instructions .Route Qty: 1 0RF Rx Instructions: As directed Eliquis 5 mg tablet 5 mg PO BID Qty: 180 1RF methimazole 10 mg tablet 20 mg PO DAILY Qty: 120 1RF albuterol sulfate 2.5 mg /3 mL (0.083 %) solution for nebulization 2.5 mg inhalation Q8H PRN (Reason: shortness of breath or wheezing) Qty: 75 0RF gabapentin 600 mg Tablet 600 mg PO BID insulin glargine 100 unit/mL Solution 45 unit SUBCUT BID cetirizine [Zyrtec] 10 mg Tablet 10 mg PO DAILY allopurinol 100 mg Tablet 150 mg PO DAILY tamsulosin [Flomax] 0.4 mg Capsule 0.4 mg PO QPM sodium bicarbonate 650 mg Tablet 650 mg PO BID docusate sodium [Colace] 100 mg Capsule 200 mg PO BID Rx Instructions: hold for loose stool paroxetine HCl [Paxil] 40 mg Tablet 40 mg PO DAILY cholecalciferol (vitamin D3) [Vitamin D3] 25 mcg (1,000 unit) Tablet 75 mcg PO DAILY omega-3 fatty acids 1,000 mg capsule 1,000 mg PO BID calcitriol 0.25 mcg Capsule 0.25 mcg PO QAM coenzyme Q10 100 mg Capsule 100 mg PO DAILY PRN (Reason: UNKNOWN) Tikosyn 250 mcg tablet 250 mcg PO 0900,2100 Qty: 60 6RF Rx Instructions: 250 mcg tablet, 1 tab twice a day rosuvastatin 40 mg Tablet 40 mg PO BEDTIME Qty: 30 0RF budesonide 0.5 mg/2 mL suspension for nebulization 0.5 mg inhalation BID.RESPIRATORY PRN (Reason: Shortness Of Breath) metoprolol tartrate 25 mg tablet 25 mg PO BID PRN (Reason: HIGH BLOOD PRESSURE) Mucinex 600 mg tablet extended release 12hr 600 mg PO BID PRN (Reason: Congestion) Discontinued furosemide [Lasix] 40 mg tablet 40 mg PO QAM Qty: 30 5RF Discharge Orders: Discharge Order (Routine); Ordered 07/11/23 Ordered By: Blanco De La Rosa Referrals: CARDIOLOGY [Provider Group] - 4-7 days (Hypotension and atrial fibrillation follow up. Referral for EP evez.) Luana Villegas MD [Primary Care Provider] - 4-7 days Nancy Siddiqui MD [Physician] - 4-7 days (Thyroid Nodule Follow Up) Discharge Diet: Advance as tolerated, Cardiac and Diabetic Discharge Activity: Increase activity as tolerated Patient Instructions: Furosemide (By mouth) (Lasix), Heart Failure (DC), CHF Stoplight, Opioid Safety, Pain Management Activity Restrictions/Additional Instructions: 1. Take medications as prescribed. 2. Monitor BP and HR. Recommend keeping log of vital signs so your PCP and entry level software engineer can review at follow up appointments. 3. Increase activity as tolerated. 4. Follow through on the assistant football coach referral Discharge Attestations Time Spent in Discharge Care*: greater than 30 min Quality Metrics Clinical Quality Measures [ No reported AMI, CVA or VTE this stay] Coding Level of Care Code Acute Code for Chg Fwd Diagnoses Hypotension, postural I95.1 CHF (congestive heart failure), NYHA class III I50.9 Chronic kidney disease N18.9 Hyperthyroidism E05.90 Atrial fibrillation I48.91
[2023-07-11 11:29] LABS: Glucose Point of Care 138 mg/dL (70-110)
== END 2023-07-11 11:47 | disposition home or self-care (01) ==
LOC: ER 16:13 → CSU 16:31
PROVIDERS: Emergency Medicine; Admitting Provider Internal Medicine; Emergency Provider Family Medicine; PCP Family Medicine; Visit Provider Internal Medicine
DX: I95.1 Orthostatic hypotension (principal); I50.9 Heart failure, unspecified; E11.22 Type 2 diabetes mellitus with diabetic chronic kidney disease; I13.0 Hypertensive heart and chronic kidney disease with heart failure and stage 1 through stage 4 chronic kidney disease, or unspecified chronic kidney disease; N18.9 Chronic kidney disease, unspecified; E05.90 Thyrotoxicosis, unspecified without thyrotoxic crisis or storm; I48.91 Unspecified atrial fibrillation; E78.5 Hyperlipidemia, unspecified; I25.10 Atherosclerotic heart disease of native coronary artery without angina pectoris; Z95.1 Presence of aortocoronary bypass graft; Z79.4 Long term (current) use of insulin; Z79.82 Long term (current) use of aspirin; I25.2 Old myocardial infarction; Z87.891 Personal history of nicotine dependence; E11.42 Type 2 diabetes mellitus with diabetic polyneuropathy
CPT/HCPCS: 36415; 36416; 71045; 80048; 80053; 80069; 81001; 82962; 83735; 83880; 84100; 84145; 84439; 84443; 84481; 85025; 85610; 93005; 94640; 96365; 96367; 96372; 99285; A9270; G0378; J1815; J3475; J7030; J7040; J7626

== ENCOUNTER → 2023-07-18 08:41 | Outpatient (BNVA) | payer OTHER, SELFPAY | PROVIDERS: PCP Family Medicine; Visit Provider Nurse Practitioner Family | DX: I48.91 Unspecified atrial fibrillation (principal) | CPT/HCPCS: 93005; 99213 ==

== ENCOUNTER → 2023-08-05 11:49 | Outpatient (BNVA) | payer OTHER, SELFPAY | PROVIDERS: PCP Family Medicine; Visit Provider Internal Medicine | DX: E11.9 Type 2 diabetes mellitus without complications (principal); E07.9 Disorder of thyroid, unspecified; E04.9 Nontoxic goiter, unspecified; E04.1 Nontoxic single thyroid nodule; Z79.4 Long term (current) use of insulin | CPT/HCPCS: 80053; 80061; 82044; 83036; 83516; 84439; 84443; 84480; 86376; 86800; 99214 ==

== ENCOUNTER → 2023-08-16 11:12 | Outpatient (BNVA) | payer OTHER, SELFPAY | PROVIDERS: PCP Family Medicine; Referring Provider Family Medicine; Visit Provider Internal Medicine Pulmonary Disease | DX: R06.09 Other forms of dyspnea (principal); R91.1 Solitary pulmonary nodule; Z87.891 Personal history of nicotine dependence | CPT/HCPCS: 99214 ==

== ENCOUNTER → 2023-09-18 14:32 | Outpatient (BNVA) | payer OTHER, SELFPAY | PROVIDERS: PCP Family Medicine; Visit Provider Internal Medicine | DX: I13.0 Hypertensive heart and chronic kidney disease with heart failure and stage 1 through stage 4 chronic kidney disease, or unspecified chronic kidney disease (principal); E11.22 Type 2 diabetes mellitus with diabetic chronic kidney disease; N18.9 Chronic kidney disease, unspecified; I50.9 Heart failure, unspecified; Z87.891 Personal history of nicotine dependence; Z79.4 Long term (current) use of insulin; I48.91 Unspecified atrial fibrillation; Z79.01 Long term (current) use of anticoagulants; Z95.1 Presence of aortocoronary bypass graft | CPT/HCPCS: 99214 ==

== ENCOUNTER 2023-09-25 08:13 | Emergency (ER) | payer OTHER, SELFPAY ==
[2023-09-25 08:15] VITALS: BMI 33.2
[2023-09-25 08:20] VITALS: BP 154/86; PULSE 80; RESP 16; TEMP 36.9; O2SAT 96
--- NOTE | 2023-09-25 08:22 | CT_ITS ---
WS: [id number] CT HEAD TECHNIQUE: Noncontrast CT of the head obtained from the skullbase to the vertex. CLINICAL INFORMATION: dysrthria/dysphasia COMPARISON: None. DLP: 1198.[address] scans at [facility] use at least one of these dose optimization techniques: automated e xposure control; mA and/or kV adjustment per patient size (includes targeted exams where dose is matc hed to clinical indication); or iterative reconstruction. FINDINGS: Acute LEFT subdural hematoma overlying the LEFT frontal lobe extending over the inferior LEFT frontal lobe measuring approximately 14 mm in short axis dimension. Intraparenchymal blood products LEFT inf erior frontal lobe. Subdural blood layering along the falx. Areas of intraparenchymal and subarachnoi d hemorrhage involving the LEFT frontal and temporal lobes extending into the LEFT sylvian fissure. S ubdural hematoma LEFT middle cranial fossa. Thin subdural hematoma tracks posteriorly overlying the L EFT parietal lobe. LEFT RIGHT midline shift measures 8 to 9 mm with partial effacement of the frontal horns and LEFT lateral ventricle. Compression of the third ventricle. Mild mass effect on the midbra in. Partial effacement of the ambient cisterns. Suprasellar cistern remains patent. Fourth ventricle remains patent. Diffuse cerebral edema throughout the LEFT cerebral hemisphere. Blood products extend along the LEFT MCA vessels. Small lipoma along the anterior falx unchanged since 2017. Inspissated secretions LEFT maxillary sinus. Mastoid air cells are well aerated. Normal visualized so ft tissues. IMPRESSION: 1. Acute subdural hematoma overlying the LEFT frontal lobe measuring 14 mm in short axis dimension. Associated intraparenchymal hemorrhage and subarachnoid blood products in the LEFT frontal and tempor al lobes. Prominent intraparenchymal hematoma LEFT inferior frontal lobe. 2. LEFT RIGHT midline shift measures 8 to 9 mm with partial effacement of the LEFT lateral ventricle and frontal horns. Suprasellar cistern remains patent. Partial effacement of the ambient cisterns wi th mild mass effect on the midbrain. 3. Thin subdural hematoma tracks along the middle cranial fossa and LEFT parietal lobe posteriorly. Subdural blood along the falx. 4. Subarachnoid blood products extend into the sylvian fissure and along the LEFT MCA vessels. 5. Diffuse cerebral edema LEFT hemisphere with effacement of overlying sulci. Notified Topher Cook DO at 09/25/2023 8:56 AM.
--- NOTE | 2023-09-25 08:22 | XR_ITS ---
WS: [id number] XR chest 1V portable [id number] REASON FOR EXAM: dyspnea/cough FINDINGS: The chest is essentially unchanged compared to previous examination 07/08/2023. Sternal sutures and previous coronary artery bypass surgery. Moderate tortuosity and ectasia of the thoracic aorta. The heart size is at the upper limits of kirk l. There is elevation of the right hemidiaphragm. Chronic pleural thickening and reticular interstitial lung opacities in the lower left hemithorax. No definite acute pulmonary parenchymal or pleural abnormality. IMPRESSION: Postoperative chest with chronic abnormalities. No acute chest abnormality is identified.
--- NOTE | 2023-09-25 08:23 | W.ED.AMS ---
HPI - Altered Mental Status General: Chief Complaint: Altered Mental Status Stated Complaint: AMS Time Seen by Provider: 09/25/23 08:21 Source: patient Mode of arrival: EMS History of Present Illness: 73-year-old male presents to the emergency room with altered mental status via EMS. He has a history of atrial fibrillation is on Eliquis he fell 2 days ago and since then he has been altered and progressively worsening this morning he is extremely altered he is having ataxia dysarthria and aphasia. He is awake and alert answers questions but has a difficult time with word finding and enunciation. Family notes that he has been very ataxic yesterday and this morning several times he stumbled and fell trying to get in and out of a chair he did fall once again yesterday. They are uncertain of the exact time he took his last Eliquis he fell asleep last night around 530 he lives alone no one was home to confirm whether or not he had taken his Eliquis prior to falling asleep or sometime in the evening after falling asleep. No reports of vomiting. MD complaint: altered mental status and confusion Onset (ago): unknown Time: 07:40 (09/24/23) Severity: mild Review of Systems Const: Denies: fever(s) or chills Card: Denies: chest pain Resp: Denies: dyspnea GI: Denies: abdominal pain [facility] ED PFSH: Medical History CHF (congestive heart failure), NYHA class III Hyperthyroidism Thyroid nodule Goiter Acquired hammertoes of both feet PAD (peripheral artery disease) Type 2 diabetes mellitus Onychomycosis Right middle lobe pulmonary nodule NSTEMI (non-ST elevated myocardial infarction) Atrial flutter Chronic kidney disease Atherosclerosis Depressive disorder Gout Hyperlipidemia Peripheral neuropathy Atrial fibrillation Chronic atrial fibrillation Essential hypertension Surgical History S/P hernia surgery History of cholecystectomy H/O knee surgery Hx of CABG Family History Father Myocardial infarct Mother Stroke Other Family history of premature coronary artery disease Social History Smoking and tobacco/nicotine status: former use of tobacco/nicotine Quit status (tobacco/nicotine): has quit using Year quit tobacco: 1971 Former quit date comment: 1ppd x 20 years Physical Exam Const: GENERAL APPEARANCE: cooperative and comfortable ORIENTATION/CONSCIOUSNESS: Yes awake HENMT: COMMON NORMALS: normocephalic and hearing grossly normal bilaterally HEAD & SCALP: normocephalic Resp: COMMON NORMALS: normal respiratory effort, No retractions, No use of accessory muscles and clear to auscultation bilaterally AUSCULTATION: clear to auscultation bilaterally Cardio: COMMON NORMALS: regular rate, regular rhythm and No murmurs present (Cardio) RATE: regular rate RHYTHM: regular rhythm GI: COMMON NORMALS: Soft to palpation and No hepatosplenomegaly present AUSCULTATION: Yes normoactive bowel sounds PALPATION: Yes Soft to palpation, No Tenderness to palpation present (GI), No Guarding due to palpation present (GI) and Yes No hepatosplenomegaly present Extremity: COMMON NORMALS: normal to inspection, capillary refill normal, no clubbing, cyanosis or edema, no calf tenderness and no pedal edema Skin: COMMON NORMALS: no rashes or lesions noted GENERAL SKIN EXAM: no rashes or lesions noted Course Vital Signs: Vital signs: Vital Signs Temperature 98.5 F 09/25/23 08:20 Pulse Rate 80 09/25/23 08:20 Respiratory Rate 16 09/25/23 08:20 Blood Pressure 154/86 09/25/23 08:20 Pulse Oximetry 96 09/25/23 08:20 Oxygen Delivery Me thod Room Air 09/25/23 08:20 MDM - Altered Mental Status Medical Decision Making CT shows left frontal lobe subdural hematoma largest diameter 14.7 mm. There is a bit of rightward midline shift. Localized edema to the surrounding tissue as well. Talking to the family they believe his last dose of Eliquis was likely as long as 16 hours ago may have been as early as about 12 hours ago but we are uncertain. Patient given 10 mg dexamethasone 1000 mg IV Keppra TXA and started on nicardipine with a goal blood pressure less than 110 systolic.. Discussed with pharmacy direction states that recommendation from [place] to low-dose. Discussed with Dr. Ellis given the fact that the patient has a bleed and is still cannot bend continually declining we both concur on proceeding with the Andexxa. Discussed with ER at [facility] and will transfer patient via ambulance. Medical Records I reviewed the patient's medical records. Lab Data I reviewed the patient's lab results. 09/25/23 08:02 09/25/23 08:02 Laboratory Results WBC 12.02 10^3/uL (3.29-11.43) H 09/25/23 08:02 RBC 3.98 10^6/uL (3.85-5.65) 09/25/23 08:02 Hgb 11.40 g/dL (11.27-16.99) 09/25/23 08:02 Hct 34.5 % (37-53) L 09/25/23 08:02 MCV 86.7 fl (82-101) 09/25/23 08:02 MCH 28.6 pg (27-33) 09/25/23 08:02 MCHC 33.0 g/dL (30-55) 09/25/23 08:02 RDW 13.3 % (12.1-15.1) 09/25/23 08:02 Plt Count 203 10^3/cmm (157-399) 09/25/23 08:02 MPV 11.1 fL (7.4-10.4) H 09/25/23 08:02 Neut % (Auto) 80.1 % 09/25/23 08:02 Lymph % (Auto) 9.4 % 09/25/23 08:02 [place] % (Auto) 9.4 % 09/25/23 08:02 Eos % (Auto) 0.2 % 09/25/23 08:02 Baso % (Auto) 0.3 % 09/25/23 08:02 Neut # (Auto) 9.63 10^3/uL (1.8-7.7) H 09/25/23 08:02 Lymph # (Auto) 1.1 10^3/uL (0.8-4.8) 09/25/23 08:02 [place] # (Auto) 1.1 10^3/uL (0.2-0.9) H 09/25/23 08:02 Eos # (Auto) 0.0 10^3/uL (0.0-0.8) 09/25/23 08:02 Baso # (Auto) 0.0 10^3/uL (0.0-0.1) 09/25/23 08:02 Nucleated RBC % (auto) 0 % 09/25/23 08:02 Nucleated RBCs # 0.0 /100WBC 09/25/23 08:02 PT 19.10 SECONDS (12.1-14.9) H 09/25/23 09:21 INR 1.54 (0.8-1.2) H 09/25/23 09:21 APTT 33.9 SECONDS (23.9-36.7) 09/25/23 09:21 Sodium 133 mmol/L (136-145) L 09/25/23 08:02 Potassium 4.1 mmol/L (3.5-5.1) 09/25/23 08:02 Chloride 92 mmol/L (98-107) L 09/25/23 08:02 Carbon Dioxide 27 mmol/L (22-29) 09/25/23 08:02 Anion Gap 18.1 (5-19) 09/25/23 08:02 BUN 30 mg/dL (8-23) H 09/25/23 08:02 Creatinine 1.5 mg/dL (0.7-1.2) H 09/25/23 08:02 GFR Calculation Not Reportable 09/25/23 08:02 Glucose 138 mg/dL (65-115) H 09/25/23 08:02 Calculated Osmolality 284 mOsm/kg (285-295) L 09/25/23 08:02 Calcium 9.7 mg/dL (8.5-10.5) 09/25/23 08:02 Total Bilirubin 0.9 mg/dL (0.15-1.2) 09/25/23 08:02 AST 17 U/L (0-40) 09/25/23 08:02 ALT 18 U/L (0-41) 09/25/23 08:02 Alkaline Phosphatase 119 U/L (40-130) 09/25/23 08:02 Troponin T Baseline 106 ng/L (0-15) H* 09/25/23 08:02 Total Protein 7.5 g/dL (6.6-8.7) 09/25/23 08:02 Albumin 4.1 g/dL (3.5-5.2) 09/25/23 08:02 Globulin 3.4 g/dL (1.3-4.6) 09/25/23 08:02 All radiology interpretation(s) finalized by discharge Discharge Plan Discharge Patient Disposition: Transfer to ED Condition: Stable Prescriptions: No Action aspirin [Adult Low Dose Aspirin] 81 mg tablet,delayed release (DR/EC) 81 mg PO QAM ezetimibe 10 mg tablet 10 mg PO DAILY (DME) FreeStyle Mati 2 Sensor Kit See Rx Instructions .Route Qty: 6 0RF Rx Instructions: As directed (DME) FreeStyle Mati 2 [place] Misc See Rx Instructions .Route Qty: 1 0RF Rx Instructions: As directed Eliquis 5 mg tablet 5 mg PO BID Qty: 180 1RF methimazole 10 mg tablet See Rx Instructions .ROUTE .COMPLEX Qty: 120 1RF Dose Instruction: TAKE TWO TABLETS BY MOUTH ONCE A DAY Rx Instructions: TAKE TWO TABLETS BY MOUTH ONCE A DAY albuterol sulfate 2.5 mg /3 mL (0.083 %) solution for nebulization 2.5 mg inhalation Q8H PRN (Reason: shortness of breath or wheezing) Qty: 75 0RF gabapentin 600 mg Tablet 600 mg PO BID insulin glargine 100 unit/mL Solution 45 unit SUBCUT BID cetirizine [Zyrtec] 10 mg Tablet 10 mg PO DAILY allopurinol 100 mg Tablet 150 mg PO DAILY tamsulosin [Flomax] 0.4 mg Capsule 0.4 mg PO QPM sodium bicarbonate 650 mg Tablet 650 mg PO BID docusate sodium [Colace] 100 mg Capsule 200 mg PO BID Rx Instructions: hold for loose stool paroxetine HCl [Paxil] 40 mg Tablet 40 mg PO DAILY cholecalciferol (vitamin D3) [Vitamin D3] 25 mcg (1,000 unit) Tablet 75 mcg PO DAILY omega-3 fatty acids 1,000 mg capsule 1,000 mg PO BID calcitriol 0.25 mcg Capsule 0.25 mcg PO QAM coenzyme Q10 100 mg Capsule 100 mg PO DAILY PRN (Reason: UNKNOWN) Tikosyn 250 mcg tablet 250 mcg PO 0900,2100 Qty: 60 6RF Rx Instructions: 250 mcg tablet, 1 tab twice a day rosuvastatin 40 mg Tablet 40 mg PO BEDTIME Qty: 30 0RF budesonide 0.5 mg/2 mL suspension for nebulization 0.5 mg inhalation BID.RESPIRATORY PRN (Reason: Shortness Of Breath) metoprolol tartrate 25 mg tablet 25 mg PO BID PRN (Reason: HIGH BLOOD PRESSURE) Mucinex 600 mg tablet extended release 12hr 600 mg PO BID PRN (Reason: Congestion) furosemide 20 mg Tablet 20 mg PO DAILY@0800 Qty: 30 1RF Referrals: Luana Villegas MD [Primary Care Provider] - Patient Instructions: Altered Mental Status (ED) Coding Level of Care Code ED Manager Business Information for Zechariah Kaur
--- NOTE | 2023-09-25 08:28 | ECG_ITS ---
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 Measurements Intervals [place] Rate: 80 P: 98 MT: 234 QRS: 49 QRSD: 140 T: 53 QT: 438 QTc: 506 Interpretive Statements SINUS RHYTHM WITH FIRST DEGREE AV BLOCK RIGHT BUNDLE BRANCH BLOCK [120+ ms QRS DURATION, UPRIGHT V1, 40+ ms S IN I/aVL/V4/V5/V6] Compared to ECG 07/18/2023 10:17:34 First degree AV block now present Right bundle-branch block now present Incomplete right bundle-branch block no longer present Electronically Signed On 09-25-2023 21:37:49 INVESTIGATION CLERK by Petty Yoo M.D. [id number]
[2023-09-25 08:47] LABS: Basophils % 0.3 %; Eosinophils % 0.2 %; Hematocrit 34.5 % (37-53); Lymphocytes # 1.1 10^3/uL (0.8-4.8); Lymphocytes % 9.4 %; Mean Corpuscular Hemoglobin 28.6 pg (27-33); Mean Corpuscular Volume 86.7 fl (82-101); Mean Platelet Volume 11.1 fL (7.4-10.4); Monocytes # 1.1 10^3/uL (0.2-0.9); Monocytes % 9.4 %; Neutrophils # 9.63 10^3/uL (1.8-7.7); Neutrophils % 80.1 %; Nucleated Red Blood Cells % 0 %; Platelet Count 203 10^3/cmm (157-399); Red Blood Count 3.98 10^6/uL (3.85-5.65); Red Cell Distribution Width 13.3 % (12.1-15.1); White Blood Count 12.02 10^3/uL (3.29-11.43)
[2023-09-25 08:57] LABS: Troponin(5th) Baseline 106 ng/L (0-15)
[2023-09-25] MEDS: tranexamic acid 1,000 MG/100 ML PREMIX 600 MG IV (09:05)
[2023-09-25 09:06] LABS: Alanine Aminotransferase 18 U/L (0-41); Albumin Level 4.1 g/dL (3.5-5.2); Alkaline Phosphatase 119 U/L (40-130); Aspartate Amino Transferase 17 U/L (0-40); Blood Urea Nitrogen 30 mg/dL (8-23); Calcium 9.7 mg/dL (8.5-10.5); Carbon Dioxide 27 mmol/L (22-29); Chloride 92 mmol/L (98-107); Globulin 3.4 g/dL (1.3-4.6); Glucose 138 mg/dL (65-115); Osmolality Calculated 284 mOsm/kg (285-295); Sodium 133 mmol/L (136-145); Total Bilirubin 0.9 mg/dL (0.15-1.2); Total Protein 7.5 g/dL (6.6-8.7)
[2023-09-25 09:07] LABS: Anion Gap 18.1 (5-19); Potassium 4.1 mmol/L (3.5-5.1)
[2023-09-25] MEDS: dexamethasone 10 mg/mL INJ IM (09:10)
[2023-09-25] MEDS: levETIRAcetam 1,000 MG/100 ML PREMIX 400 MG IV (09:10)
[2023-09-25] MEDS: nicardipine 20 MG/200 ML PREMIX 50 MG IV (09:13)
[2023-09-25] MEDS: factor xa, inactivated-zhzo 400 MG in empty flexible container 1 EACH, non-DEHP filter ... 180 MG IV (09:38)
[2023-09-25 09:41] LABS: INR 1.54 (0.8-1.2)
[2023-09-25 09:42] LABS: Partial Thromboplastin Time 33.9 SECONDS (23.9-36.7)
[2023-09-25] MEDS: nicardipine 20 MG/200 ML PREMIX 80 MG IV (10:10)
== END 2023-09-25 10:23 ==
PROVIDERS: Emergency Provider Family Medicine; PCP Family Medicine
DX: I62.00 Nontraumatic subdural hemorrhage, unspecified (principal); R60.0 Localized edema; Z79.82 Long term (current) use of aspirin; Z79.01 Long term (current) use of anticoagulants; Z79.4 Long term (current) use of insulin; Z87.891 Personal history of nicotine dependence; Z95.1 Presence of aortocoronary bypass graft; I13.0 Hypertensive heart and chronic kidney disease with heart failure and stage 1 through stage 4 chronic kidney disease, or unspecified chronic kidney disease; E11.22 Type 2 diabetes mellitus with diabetic chronic kidney disease; N18.9 Chronic kidney disease, unspecified; I50.9 Heart failure, unspecified; I25.2 Old myocardial infarction; E78.5 Hyperlipidemia, unspecified
CPT/HCPCS: 36415; 70450; 71045; 80053; 84484; 85025; 85610; 85730; 93005; 96365; 96372; 96375; 99285; J1100; J1953; J7169

== ENCOUNTER 2023-10-12 16:15 | Inpatient (IN) | payer OTHER, SELFPAY ==
[2023-10-12 16:15] VITALS: BP 143/63; PULSE 78; RESP 22; TEMP 36.7; O2SAT 92
[2023-10-12 16:25] VITALS: BP 143/59; PULSE 67; RESP 16; O2SAT 91
--- NOTE | 2023-10-12 16:26 | XRR_ITS ---
PROCEDURE INFORMATION: Exam: XR Chest Exam date and time: 10/12/2023 5:17 PM Age: 73 years old Clinical indication: Cough and dyspnea; Prior surgery; Surgery date: 6+ months; Surgery type: Heart; Additional info: Dyspnea/cough TECHNIQUE: Imaging protocol: Radiologic exam of the chest. Views: 1 view. COMPARISON: CR XR chest 1V portable [id number] 09/25/2023 8:47 AM FINDINGS: Lungs: Mild atelectasis at the left lung base. Pleural spaces: Small left pleural effusion. Heart/Mediastinum: Unremarkable. No cardiomegaly. Bones/joints: Unremarkable. XR/XR chest 1V portable [id number] IMPRESSION: Small left pleural effusion with mild atelectasis at the left lung base.
--- NOTE | 2023-10-12 16:26 | ECG_ITS ---
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 Measurements Intervals [place] Rate: 67 P: 78 FL: 265 QRS: 46 QRSD: 132 T: 54 QT: 455 QTc: 482 Interpretive Statements SINUS RHYTHM WITH FIRST DEGREE AV BLOCK RIGHT BUNDLE BRANCH BLOCK [120+ ms QRS DURATION, UPRIGHT V1, 40+ ms S IN I/aVL/V4/V5/V6] INTERPRETATION BASED ON A DEFAULT AGE OF 40 YEARS Compared to ECG 09/25/2023 08:28:50 No significant changes Electronically Signed On 10-13-2023 8:21:08 YOUTH OFFICER by Rod Cameron M.D. [id number]
--- NOTE | 2023-10-12 16:30 | CTR_ITS ---
PROCEDURE INFORMATION: Exam: CT Head Without Contrast Exam date and time: 10/12/2023 5:08 PM Age: 73 years old Clinical indication: Other: Recent subdural - new onset seizures; Prior surgery; Surgery date: <1 month; Surgery type: Brain TECHNIQUE: Imaging protocol: Computed tomography of the head without contrast. Radiation optimization: All CT scans at this facility use at least one of these dose optimization techniques: automated exposure control; mA and/or kV adjustment per patient size (includes targeted exams where dose is matched to clinical indication); or iterative reconstruction. COMPARISON: CT head wo con* [id number] 09/25/2023 8:36 AM RADIATION DOSE METRICS: Total DLP (mGy-cm): 1149.98 FINDINGS: Brain: Normal. No hemorrhage. Unremarkable white matter. No mass effect. Cerebral ventricles: No ventriculomegaly. Paranasal sinuses: Mucosal thickening of left maxillary sinus. Mastoid air cells: Mild effusion in the left mastoid air cells. Bones/joints: Left frontal craniotomy with decompression surgery. No acute fracture. Hemorrhagic debris is in the craniotomy site, resolving postsurgical changes. Soft tissues: Unremarkable. CT/CT head wo con* [id number] IMPRESSION: 1. Status post left frontal craniotomy with postsurgical changes. 2. No acute abnormality.
[2023-10-12 16:35] LABS: Basophils # 0.1 10^3/uL (0.0-0.1); Basophils % 0.7 %; Eosinophils # 0.2 10^3/uL (0.0-0.8); Eosinophils % 2.7 %; Hematocrit 28.5 % (37-53); Lymphocytes # 1.7 10^3/uL (0.8-4.8); Mean Corpuscular HGB Conc 31.2 g/dL (30-55); Mean Corpuscular Volume 92.8 fl (82-101); Mean Platelet Volume 10.5 fL (7.4-10.4); Monocytes # 1.1 10^3/uL (0.2-0.9); Monocytes % 12.8 %; Neutrophils # 5.29 10^3/uL (1.8-7.7); Neutrophils % 62.8 %; Nucleated Red Blood Cells % 0 %; Platelet Count 241 10^3/cmm (157-399); Red Blood Count 3.07 10^6/uL (3.85-5.65); Red Cell Distribution Width 16.1 % (12.1-15.1); White Blood Count 8.42 10^3/uL (3.29-11.43)
[2023-10-12 16:42] LABS: Add Urine Culture? Yes; Add Urine Microscopic? YES; Bacteria Urine 1+ /hpf; Bilirubin Urine Neg (Negative); Blood Urine Neg (Negative); Glucose Urine UA Norm (Normal); Ketones Urine Negative (Negative); Leukocyte Esterase Urine 2+ (Negative); Nitrate Urine Negative (Negative); Protein Urine Neg (Negative); Squamous Epithelial Cell Urine 0-4 /hpf (0-5); Urine Appearance Clear (CLEAR); Urine Color Yellow (Yellow); Urobilinogen Urine Norm (Negative); WBC Urine 25-40 /hpf (0-5); pH Urine 5 (5-7)
--- NOTE | 2023-10-12 16:42 | ED_ITS ---
HPI - Seizure 2 General: Chief Complaint: Seizure Stated Complaint: SEIZURES Time Seen by Provider: 10/12/23 16:17 Source: patient Mode of arrival: ambulatory History of Present Illness: HPI Narrative: 73-[facility]. He recently had a large intracranial bleed while on anticoagulants. He underwent craniotomy he does have a protective helmet on I do not have any records from his hospital stay in [place] but he was seen here initially and transferred there. He had been given Dex and TXA as well as blood pressure control medications. The report today is that he had a [facility] the [facility]. He had not been having any seizures prior to that from the medication list supplied it does not appear he is on any antiseizure medications. Shortly after arrival here he did have a brief tonic-clonic seizure which I witnessed at the bedside. He is nonresponsive at this time and unable to provide any history MD complaint: seizure Witnessed: Yes - by Bystander Trauma: No Seizure History: No Place: detention Possible Precipitating Event: other (Recent intracranial bleed with craniotomy) Review of Systems 2 General: Reports: ROS unobtainable due to mental status PFS ED 2 PFSH: Medical History (Updated 10/14/23 @ 06:32 by Topher Cook DO) Chronic kidney disease CHF (congestive heart failure), NYHA class III Hyperthyroidism Thyroid nodule Goiter Acquired hammertoes of both feet PAD (peripheral artery disease) Type 2 diabetes mellitus Onychomycosis Right middle lobe pulmonary nodule NSTEMI (non-ST elevated myocardial infarction) Atrial flutter Atherosclerosis Depressive disorder Gout Hyperlipidemia Peripheral neuropathy Atrial fibrillation Chronic atrial fibrillation Essential hypertension Surgical History S/P hernia surgery History of cholecystectomy H/O knee surgery Hx of CABG Family History Father Myocardial infarct Mother Stroke Other Family history of premature coronary artery disease Social History Smoking and tobacco/nicotine status: former use of tobacco/nicotine Quit status (tobacco/nicotine): has quit using Year quit tobacco: 1971 Former quit date comment: 1ppd x 20 years Physical Exam 2 HENMT: OTHER: Patient wearing protective helmet secondary to recent craniotomy Resp: COMMON NORMALS: normal respiratory effort, No retractions, No use of accessory muscles and clear to auscultation bilaterally AUSCULTATION: clear to auscultation bilaterally Cardio: COMMON NORMALS: regular rate, regular rhythm and No murmurs present (Cardio) RATE: regular rate RHYTHM: regular rhythm GI: COMMON NORMALS: Soft to palpation and No hepatosplenomegaly present A USCULTATION: Yes normoactive bowel sounds PALPATION: Yes Soft to palpation, No Tenderness to palpation present (GI), No Guarding due to palpation present (GI) and Yes No hepatosplenomegaly present Extremity: COMMON NORMALS: normal to inspection, capillary refill normal, no clubbing, cyanosis or edema, no calf tenderness and no pedal edema Skin: COMMON NORMALS: no rashes or lesions noted GENERAL SKIN EXAM: no rashes or lesions noted Course 2 Vital Signs: Vital signs: Vital Signs Temperature 97.5 F L 10/14/23 04:00 Pulse Rate 80 10/14/23 04:15 Respiratory Rate 24 H 10/14/23 04:15 Blood Pressure 147/67 10/14/23 04:15 Pulse Oximetry 98 10/14/23 04:15 Oxygen Delivery Me thod Nasal Cannula 10/13/23 20:00 Oxygen Flow Rate 2 10/13/23 20:00 MDM - Seizure MDM Narrative Medical decision making narrative: Labs and imaging reviewed. Initially were had difficult time getting records from his hospitalization at [facility]. Per the family's report he was maintained on Keppra he was at [facility] they believe that he may have missed a dose or 2 after being discharged and returned [facility]. I did witness 1 seizure in the emergency room department very mild tonic-clonic seizure but he had tonic- clonic activity in arms and legs bilaterally. He is given Ativan and loaded with Keppra. Labs and imaging reviewed and discussed with the family. Also reviewed with Dr. Velazco who is on-call for neurology. Patient has not had any further seizures since he was given Ativan and Keppra. Dr. Velazco concurred with observation of the patient to ensure that he does not have any further seizures and that the medication dose is adequate. Discussed with hospitalist orders written Lab Data 10/14/23 03:20 10/14/23 03:20 Labs: Radiology Impressions Chest X-Ray 10/12/23 16:26 IMPRESSION: Small left pleural effusion with mild atelectasis at the left lung base. Head CT 10/12/23 16:30 IMPRESSION: 1. Status post left frontal craniotomy with postsurgical changes. 2. No acute abnormality. Laboratory Results WBC 8.42 10^3/uL (3.29-11.43) 10/12/23 16:23 RBC 3.07 10^6/uL (3.85-5.65) L 10/12/23 16:23 Hgb 8.90 g/dL (11.27-16.99) L 10/12/23 16:23 Hct 28.5 % (37-53) L 10/12/23 16:23 MCV 92.8 fl (82-101) 10/12/23 16:23 MCH 29.0 pg (27-33) 10/12/23 16:23 MCHC 31.2 g/dL (30-55) 10/12/23 16:23 RDW 16.1 % (12.1-15.1) H 10/12/23 16:23 Plt Count 241 10^3/cmm (157-399) 10/12/23 16:23 MPV 10.5 fL (7.4-10.4) H 10/12/23 16:23 Neut % (Auto) 62.8 % 10/12/23 16:23 Lymph % (Auto) 20.0 % 10/12/23 16:23 [place] % (Auto) 12.8 % 10/12/23 16:23 Eos % (Auto) 2.7 % 10/12/23 16:23 Baso % (Auto) 0.7 % 10/12/23 16:23 Neut # (Auto) 5.29 10^3/uL (1.8-7.7) 10/12/23 16:23 Lymph # (Auto) 1.7 10^3/uL (0.8-4.8) 10/12/23 16:23 [place] # (Auto) 1.1 10^3/uL (0.2-0.9) H 10/12/23 16:23 Eos # (Auto) 0.2 10^3/uL (0.0-0.8) 10/12/23 16:23 Baso # (Auto) 0.1 10^3/uL (0.0-0.1) 10/12/23 16:23 Nucleated RBC % (auto) 0 % 10/12/23 16:23 Nucleated RBCs # 0.0 /100WBC 10/12/23 16:23 Sodium 137 mmol/L (136-145) 10/12/23 16:23 Potassium 4.7 mmol/L (3.5-5.1) 10/12/23 16:23 Chloride 100 mmol/L (98-107) 10/12/23 16:23 Carbon Dioxide 24 mmol/L (22-29) 10/12/23 16:23 Anion Gap 17.7 (5-19) 10/12/23 16:23 BUN 51 mg/dL (8-23) H 10/12/23 16:23 Creatinine 2.2 mg/dL (0.7-1.2) H 10/12/23 16:23 GFR Calculation Not Reportable 10/12/23 16:23 Glucose 146 mg/dL (65-115) H 10/12/23 16:23 Calculated Osmolality 300 mOsm/kg (285-295) H 10/12/23 16:23 Lactic Acid 1.4 mmol/L (0.5-2.2) 10/12/23 16:23 Calcium 8.2 mg/dL (8.5-10.5) L 10/12/23 16:23 Total Bilirubin 0.2 mg/dL (0.15-1.2) 10/12/23 16:23 AST 28 U/L (0-40) 10/12/23 16:23 ALT 30 U/L (0-41) 10/12/23 16:23 Alkaline Phosphatase 203 U/L (40-130) H 10/12/23 16:23 Creatine Kinase 124 U/L (39-308) 10/12/23 16:23 Total Protein 6.1 g/dL (6.6-8.7) L 10/12/23 16:23 Albumin 3.1 g/dL (3.5-5.2) L 10/12/23 16:23 Globulin 3.0 g/dL (1.3-4.6) 10/12/23 16:23 Urine Color Yellow (Yellow) 10/12/23 16:23 Urine Appearance Clear (CLEAR) 10/12/23 16:23 Urine pH 5 (5-7) 10/12/23 16:23 Ur Specific [place] 1.020 (1.005-1.030) 10/12/23 16:23 Urine Protein Neg (Negative) 10/12/23 16:23 Urine Glucose (UA) Norm (Normal) 10/12/23 16:23 Urine Ketones Negative (Negative) 10/12/23 16:23 Urine Blood Neg (Negative) 10/12/23 16:23 Urine Nitrate Negative (Negative) 10/12/23 16:23 Urine Bilirubin Neg (Negative) 10/12/23 16:23 Urine Urobilinogen Norm mg/dL (Negative) 10/12/23 16:23 Ur Leukocyte Esterase 2+ (Negative) H 10/12/23 16:23 Urine RBC None /hpf (0-2) 10/12/23 16:23 Urine WBC 25-40 /hpf (0-5) H 10/12/23 16:23 Ur Squamous Epith Cells 0-4 /hpf (0-5) H 10/12/23 16:23 Amorphous Sediment Not Reportable 10/12/23 16:23 Urine Bacteria 1+ /hpf (NONE) H 10/12/23 16:23 Urine Opiates Screen Negative ng/mL (Negative) 10/12/23 16:28 Ur Barbiturates Screen Negative ng/mL (Negative) 10/12/23 16:28 Ur Phencyclidine Scrn Negative ng/mL (Negative) 10/12/23 16:28 Ur Amphetamines Screen Negative ng/mL (Negative) 10/12/23 16:28 U Benzodiazepines Scrn Negative ng/mL (Negative) 10/12/23 16:28 Urine Cocaine Screen Negative ng/mL (Negative) 10/12/23 16:28 U Marijuana (THC) Screen Negative ng/mL (Negative) 10/12/23 16:28 All radiology interpretation(s) finalized by discharge Discharge Plan Discharge Patient Disposition: Admitted As Inpatient Admit Provider: Blanco De La Rosa Clinical Impression: SDH (subdural hematoma), Seizure, Chronic kidney disease, Essential hypertension, Anemia Condition: Stable Coding Level of Care Code ED Clam Dredge Boat Captain for Zechariah Kaur
[2023-10-12] MEDS: levETIRAcetam 1,000 MG/100 ML PREMIX 400 MG IV ×2 (16:44→22:11)
[2023-10-12] MEDS: LORazepam 2 mg/mL INJ 10 mL MDV IVP (16:45)
[2023-10-12 16:46] LABS: Alanine Aminotransferase 30 U/L (0-41); Albumin Level 3.1 g/dL (3.5-5.2); Alkaline Phosphatase 203 U/L (40-130); Anion Gap 17.7 (5-19); Aspartate Amino Transferase 28 U/L (0-40); Blood Urea Nitrogen 51 mg/dL (8-23); Calcium 8.2 mg/dL (8.5-10.5); Carbon Dioxide 24 mmol/L (22-29); Chloride 100 mmol/L (98-107); Creatine Phosphokinase 124 U/L (39-308); Glucose 146 mg/dL (65-115); Osmolality Calculated 300 mOsm/kg (285-295); Potassium 4.7 mmol/L (3.5-5.1); Sodium 137 mmol/L (136-145); Total Bilirubin 0.2 mg/dL (0.15-1.2); Total Protein 6.1 g/dL (6.6-8.7)
[2023-10-12 16:54] LABS: Lactic Sepsis W/Reflex 1.4 mmol/L (0.5-2.2)
[2023-10-12 17:00] VITALS: BP 119/60; PULSE 69; RESP 15; O2SAT 100
--- NOTE | 2023-10-12 18:14 | PM.HP ---
Providers/Chief Complaint Primary Care Provider: Luana Villegas MD Chief Complaint: SEIZURES History of Present Illness Jonathan Baker is a 73 year old male with a past medical history significant for congestive heart failure, hypothyroidism, peripheral arterial disease, type 2 diabetes mellitus, peripheral neuropathy, chronic atrial fibrillation, and recent acute subdural hematoma with intraparenchymal hemorrhage producing midline shift on 09/25/2023 requiring craniotomy who presented emergency department with seizure activity. Daughter is bedside and supportive. She provides most the history. Patient's been hospitalized at an outside hospital for the aforementioned brain surgery. He had initially presented to the [facility] ED on 09/25/2023 and was shipped for neurosurgical intervention. He reportedly underwent neurosurgery the same day. She reports he went into cardiac arrest during surgery was coded 4 times. He has been on Keppra since 09/21/2023 for seizure prophylaxis. Daughter reports prior to today he had not shown any seizure-like activity. He has no history of seizure disorder. He was reportedly discharged yesterday to [facility]. Daughter noted seizure-like activity earlier this morning. He had recurrent episodes with a total of about 4 episodes prior to arriving to the emergency department. Another seizure was witnessed by the ED provider. He was given Ativan, subsequently developed lethargic. Patient unable to provide further history due to her lethargic state from being postictal and medication side effects from Ativan. Daughter reports he had made great progress postoperatively. He has been progressed to regular diet. He is just recently ambulated with physical therapy. Memory seems to be improving. He is currently wearing a helmet. He has follow-up scheduled neurosurgery for consideration of reimplantation of skull bone. Review of Systems Narrative: A complete review of systems was obtained and is negative except as stated in HPI. Medications/Allergies Home Medications Medication Instructions Recorded Confirmed Last Taken Type aspirin 81 mg tablet,delayed 81 mg PO QAM 10/14/19 10/07/23 07/08/23 History release (Adult Low Dose Aspirin) ezetimibe 10 mg tablet 10 mg PO DAILY 10/14/19 10/07/23 07/08/23 History allopurinol 100 mg tablet 150 mg PO DAILY 07/20/22 10/12/23 10/12/23 History 150 mg cetirizine 10 mg tablet (Zyrtec) 10 mg PO DAILY 07/20/22 10/07/23 07/08/23 History cholecalciferol (vitamin D3) 25 75 mcg PO DAILY 07/20/22 10/07/23 07/08/23 History mcg (1,000 unit) tablet (Vitamin D3) docusate sodium 100 mg capsule 200 mg PO BID 07/20/22 10/07/23 07/08/23 History (Colace) gabapentin 600 mg tablet 600 mg PO BID 07/20/22 10/07/23 07/08/23 History insulin glargine 100 unit/mL 45 unit SUBCUT BID 07/20/22 10/07/23 07/08/23 History subcutaneous solution paroxetine HCl 40 mg tablet (Paxil) 40 mg PO DAILY 07/20/22 10/07/23 07/08/23 History sodium bicarbonate 650 mg tablet 650 mg PO BID 07/20/22 10/07/23 07/08/23 History tamsulosin 0.4 mg capsule (Flomax) 0.4 mg PO QPM 07/20/22 10/07/23 07/07/23 History albuterol sulfate 2.5 mg/3 mL 2.5 mg (3 mL) inhalation Q8H PRN 08/01/22 10/07/23 Unknown Rx (0.083 %) solution for nebulization shortness of breath or wheezing #75 mL calcitriol 0.25 mcg capsule 0.25 mcg PO QAM 10/10/22 10/07/23 07/08/23 History coenzyme Q10 100 mg capsule 100 mg PO DAILY PRN UNKNOWN 10/10/22 10/07/23 10/09/22 History flash glucose scanning reader #1 ea 02/11/23 10/07/23 Unknown Rx (FreeStyle Mati 2 [place]) flash glucose sensor (FreeStyle #6 ea 02/11/23 10/07/23 Unknown Rx Mati 2 Sensor kit) apixaban 5 mg tablet (Eliquis) 5 mg PO BID #180 tabs 03/07/23 10/07/23 07/08/23 Rx omega-3 fatty acids 1,000 mg 1,000 mg PO BID 03/07/23 10/07/23 07/08/23 History capsule Tikosyn 250 mcg PO 0900,2100 #60 tabs 06/28/23 10/07/23 07/08/23 Rx rosuvastatin 40 mg tablet 40 mg PO BEDTIME #30 tabs 06/28/23 10/07/23 07/07/23 Rx budesonide 0.5 mg/2 mL suspension 0.5 mg inhalation BID.RESPIRATORY 07/08/23 10/07/23 Unknown History for nebulization PRN Shortness Of Breath guaifenesin 600 mg tablet, 600 mg PO BID PRN Congestion 07/08/23 10/07/23 Unknown History extended release 12 hr (Mucinex) metoprolol tartrate 25 mg tablet 25 mg PO BID PRN HIGH BLOOD 07/08/23 10/07/23 Unknown History PRESSURE furosemide 20 mg tablet 20 mg PO DAILY@0800 #30 tabs 07/11/23 10/07/23 Unknown Rx methimazole 10 mg tablet See Rx Instructions .Route 09/19/23 10/07/23 Unknown Rx .COMPLEX #120 tabs Allergies Allergy/AdvReac Type Severity Reaction Status Date / Time No Known Allergies Allergy Verified 10/07/23 11:15 PFSH Acute PFSH: Medical History (Updated 10/13/23 @ 00:06 by Blnaco De La Rosa MD) Chronic kidney disease CHF (congestive heart failure), NYHA class III Hyperthyroidism Thyroid nodule Goiter Acquired hammertoes of both feet PAD (peripheral artery disease) Type 2 diabetes mellitus Onychomycosis Right middle lobe pulmonary nodule NSTEMI (non-ST elevated myocardial infarction) Atrial flutter Atherosclerosis Depressive disorder Gout Hyperlipidemia Peripheral neuropathy Atrial fibrillation Chronic atrial fibrillation Essential hypertension Surgical History S/P hernia surgery History of cholecystectomy H/O knee surgery Hx of CABG Family History Father Myocardial infarct Mother Stroke Other Family history of premature coronary artery disease Social History Smoking and tobacco/nicotine status: former use of tobacco/nicotine Quit status (tobacco/nicotine): has quit using Year quit tobacco: 1971 Former quit date comment: 1ppd x 20 years Vitals/I&O/Wt Last Vital Signs Temp 98.1 F 10/12/23 16:15 Pulse 69 10/12/23 17:00 Resp 15 10/12/23 17:00 BP 119/60 10/12/23 17:00 Pulse Ox 100 10/12/23 17:00 O2 Del Method Nasal Cannula 10/12/23 17:00 O2 Flow Rate 2 10/12/23 17:00 Physical Exam Narrative: General: Patient is lethargic. Arouses to stimulation. Head: Wearing helmet. Neck: No JVD. Cardiovascular: RRR. No gallops. No murmurs. Left greater than right 1+ edema in lower extremities. Lungs: Breath sounds are slightly diminished at bases, no use of accessory muscles, no crackles or wheezes. Skin: No jaundice. No rashes. Abdomen: Normal bowel sounds, abdomen soft and nontender. Extremities: No cyanosis or clubbing. Musculoskeletal: No swollen or erythematous joints. Neurological: Moves all 4 extremities. No myoclonus. Data 10/12/23 16:23 10/12/23 16:23 A&P Assessment and plan (1) Seizure: New onset seizure x 4-5 episodes today Status post Ativan and IV in the ED [facility] records show Keppra 500 mg p.o. 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 Telemetry monitoring Awaiting home meds to be updated, plan to continue regimen he was discharged on from prior hospital, discussed with nursing for med update Qualifiers: Atrial fibrillation type: unspecified Qualified Code(s): I48.91 - Unspecified atrial fibrillation (4) Abnormal urinalysis: Urinalysis reviewed, abnormal with 2+ leukocyte esterase, WBC 25-40, and 1+ bacteria Patient unable to converse regarding possible urinary symptoms Will proceed with treatment with Rocephin, follow-up Ux (5) CHF (congestive heart failure), NYHA class III: Chronic heart failure with borderline ejection fraction of 45 to 50% Compensated on exam Plan to continue home meds after list is updated Qualifiers: Congestive heart failure type: unspecified Qualified Code(s): I50.9 - Heart failure, unspecified (6) Essential hypertension: Current blood pressure is acceptable Plan to continue home meds (7) Chronic kidney disease: Chronic kidney disease, appears to be around stage III A3 B Avoid nephrotoxins, renally dose medications Repeat labs in a.m. Qualifiers: Chronic kidney disease stage: unspecified stage Qualified Code(s): N18.9 - Chronic kidney disease, unspecified (8) Anemia: Suspect postop anemia following his prolonged hospitalization outside hospital No evidence of bleeding Repeat labs in a.m. Qualifiers: Anemia type: unspecified type Qualified Code(s): D64.9 - Anemia, unspecified Plan DVT prophylaxis: SCD CODE STATUS: Full code Attestations Medical Necessity Statement*: Patient presents with multiple seizures in the setting of recent craniotomy with expected hospitalization not to cross 2 midnights for repeat doses of IV antiepileptic, neurology evaluation, and supportive care. Coding Level of Care Code Acute Code for Chg Fwd Diagnoses Seizure R56.9 SDH (subdural hematoma) S06.5XAA Atrial fibrillation, unspecified type I48.91 Atrial fibrillation type: unspecified Abnormal urinalysis R82.90 Congestive heart failure, NYHA class 3, unspecified congestive heart failure type I50.9 Congestive heart failure type: unspecified Essential hypertension I10 Chronic kidney disease, unspecified CKD stage N18.9 Chronic kidney disease stage: unspecified stage Anemia, unspecified type D64.9 Anemia type: unspecified type
[2023-10-12 19:36] VITALS: BP 115/62; PULSE 68; RESP 15; O2SAT 99
[2023-10-12 19:48] VITALS: BMI 36.7
[2023-10-12 20:00] VITALS: BP 116/65; PULSE 68; RESP 18; TEMP 36.4; O2SAT 97
[2023-10-13] VITALS (11 sets, daily range): BP systolic 98–150; BP diastolic 61–75; PULSE 62–86; RESP 17–23; TEMP 36.3–36.7; O2SAT 95–99
[2023-10-13] MEDS: cefTRIAXone 1,000 MG in sodium chloride 0.9% (plus) 50 ML 100 MG IV (00:46)
[2023-10-13 03:56] LABS: Basophils # 0.1 10^3/uL (0.0-0.1); Basophils % 0.7 %; Eosinophils # 0.2 10^3/uL (0.0-0.8); Hematocrit 28.2 % (37-53); Lymphocytes # 1.1 10^3/uL (0.8-4.8); Lymphocytes % 14.9 %; Mean Corpuscular HGB Conc 30.1 g/dL (30-55); Mean Corpuscular Hemoglobin 28.6 pg (27-33); Mean Corpuscular Volume 94.9 fl (82-101); Mean Platelet Volume 11.1 fL (7.4-10.4); Monocytes # 0.8 10^3/uL (0.2-0.9); Monocytes % 10.8 %; Neutrophils # 5.07 10^3/uL (1.8-7.7); Neutrophils % 69.5 %; Nucleated Red Blood Cells % 0 %; Platelet Count 249 10^3/cmm (157-399); Red Blood Count 2.97 10^6/uL (3.85-5.65); Red Cell Distribution Width 16.3 % (12.1-15.1)
--- NOTE | 2023-10-13 04:07 | PC.NURSE ---
Medication list updated, waiting on [place] to call back to verify Vit D dose and ubiquinone dose, which is why unable to complete full Med update in OCT.
[2023-10-13 04:18] LABS: Albumin Level 3.1 g/dL (3.5-5.2); Anion Gap 15.7 (5-19); Blood Urea Nitrogen 45 mg/dL (8-23); Calcium 8.2 mg/dL (8.5-10.5); Carbon Dioxide 25 mmol/L (22-29); Chloride 100 mmol/L (98-107); Glucose 149 mg/dL (65-115); Phosphorus 4.5 mg/dL (2.5-4.5); Potassium 4.7 mmol/L (3.5-5.1); Sodium 136 mmol/L (136-145)
[2023-10-13] MEDS: calcitriol 0.25 mcg Capsule PO (06:19)
[2023-10-13 06:49] LABS: Glucose Point of Care 212 mg/dL (70-110)
[2023-10-13] MEDS: budesonide 0.5 mg/2 mL Neb INHALATION (07:34)
[2023-10-13] MEDS: acetaminophen 325 mg Tablet 650 MG PO (08:11)
[2023-10-13] MEDS: allopurinol 100 mg Tablet 150 MG PO (08:11)
[2023-10-13] MEDS: dilTIAZem 30 mg Tablet 90 MG PO ×2 (08:12→13:40)
[2023-10-13] MEDS: tamsulosin 0.4 mg Capsule PO (08:12)
[2023-10-13] MEDS: docusate sodium 100 mg Capsule 200 MG PO ×2 (08:12→17:33)
[2023-10-13] MEDS: FUROsemide 20 mg Tablet PO (08:12)
[2023-10-13] MEDS: omega-3 fatty acids 1,000 mg Capsule 1000 MG PO ×2 (08:12→17:33)
[2023-10-13] MEDS: lisinopril 10 mg Tablet PO (08:12)
[2023-10-13] MEDS: PARoxetine 20 mg Tablet 40 MG PO (08:12)
[2023-10-13] MEDS: gabapentin 300 mg Capsule 600 MG PO ×2 (08:12→17:33)
[2023-10-13] MEDS: folic acid 1 mg Tablet PO (08:13)
[2023-10-13] MEDS: insulin lispro 100 unit/1 mL 10 UNIT SUBCUT ×2 (08:13→17:34)
[2023-10-13] MEDS: insulin lispro 100 unit/1 mL SUBCUT ×3 (08:13→20:45)
[2023-10-13] MEDS: amiodarone 200 mg Tablet PO (08:13)
[2023-10-13] MEDS: famotidine 20 mg Tablet PO (08:13)
[2023-10-13] MEDS: cetirizine 10 mg Tablet PO (08:13)
[2023-10-13] MEDS: guaiFENesin 600 mg Tablet PO ×2 (08:13→17:33)
[2023-10-13] MEDS: ezetimibe 10 mg Tablet PO (08:19)
[2023-10-13] MEDS: levETIRAcetam 1,000 MG/100 ML PREMIX 400 MG IV ×2 (08:20→20:45)
--- NOTE | 2023-10-13 08:43 | PC.PHAR ---
Addendum entered by Elizabeth Quiros 10/13/23 13:19: medications entered are from [facility] faxed Addendum entered by Elizabeth Quiros 10/13/23 09:42: [facility] will try to fax again Original Note: pt is from [facility] [phone] [facility] will fax [facility] from [facility] saturday10/11/23 evening and was admitted to [facility]
--- NOTE | 2023-10-13 11:26 | P.CONIM_ITS ---
Providers/Reason For Consult 2 Consulting Physician/Specialty*: Socrates Velazco MD neurology and epilepsy Reason for Consult*: Seizures on 10/12/2023 in patient with history of left subdural hematoma September 25, 2023 following closed head trauma status post evacuation in [facility] with left craniotomy and removal of left bone flap. Attending Physician: Skyler Hui MD Primary Care Provider: Luana Villegas MD History of Present Illness History of Present Illness Jonathan Baker is a 73 year old male with a history of atrial fibrillation, essential hypertension, congestive heart failure, chronic renal insufficiency and left subdural hematoma while on anticoagulation requiring craniotomy with evacuation on September 25, 2023. According to the patient's daughter who was present at the patient's bedside on 10/13/2023, the patient was sitting on the side of his bed and sustained closed head trauma after falling off of his bed. Approximately 4 to 5 days later the patient was witnessed to be staring. The patient was brought to [facility] emergency room on September 25, 2023. A CT scan revealed left subdural hematoma and the patient was started on Keppra and transferred to [place]. Patient underwent left craniotomy with subdural hematoma evacuation with removal of left bone flap. The bone flap is scheduled to be replaced in approximately 2 weeks so the patient was wearing a helmet for skull protection. Keppra was continued at 500 mg twice a day. According to the patient's daughter, the patient was discharged from [facility] and transferred to a nursing care facility on 10/11/2023. On 10/12/2023 the patient was witnessed to experience recurrent seizures grand mal seizures. Repeat head CT scan revealed no recurrent hemorrhage. Patient's Keppra was increased to 1000 mg twice a day. He was admitted to observation to observe for any recurrent seizures. Neurology consult was obtained to assist in the patient's care. Drug allergies: None Current medications: Keppra 1000 mg twice daily Allopurinol 150 mg p.o. daily Amiodarone 200 mg p.o. twice daily Albuterol sulfate 2.5 mg every 6 hours as needed Budesonide 0.5 mg twice daily as needed for shortness of breath Zyrtec 10 mg p.o. daily Calcitrol 0.2 mcg p.o. daily Diltiazem 90 mg p.o. 4 times daily Colace 200 mg p.o. twice daily Ezetimibe 10 mg p.o. daily Pepcid 20 mg p.o. daily Folic acid 1 mg p.o. daily Lasix 20 mg p.o. daily Neurontin 600 mg p.o. twice daily Mucinex 600 mg p.o. twice daily IV heparin 5000 international units subcutaneously every 8 hour Insulin 30 units subcutaneously at bedtime Insulin 15 units subcutaneously 3 times daily Lisinopril 10 mg p.o. daily [place]-3 fatty acids 1000 mg p.o. twice daily Paxil 40 mg p.o. daily Crestor 40 mg p.o. daily Flomax 0.4 mg p.o. daily Past medical history: Left subdural hematoma requiring surgical evacuation with left craniotomy with removal of left cranial bone flap CHF (congestive heart failure), NYHA class III Hyperthyroidism Thyroid nodule Goiter Acquired hammertoes of both feet PAD (peripheral artery disease) Type 2 diabetes mellitus Onychomycosis Right middle lobe pulmonary nodule NSTEMI (non-ST elevated myocardial infarction) Atrial flutter Chronic kidney disease Atherosclerosis Depressive disorder Gout Hyperlipidemia Peripheral neuropathy Atrial fibrillation Chronic atrial fibrillation Essential hypertension Anemia Past surgical history: S/P hernia surgery History of cholecystectomy H/O knee surgery Hx of CABG Status post left craniotomy for left subdural hematoma Habits: None Family History Father Myocardial infarct Mother Stroke Other Family history of premature coronary artery disease Review of Systems 2 General: Reports: 10 or more systems reviewed and unremarkable except in HPI and below Medications/Allergies Home Medications Medication Instructions Recorded Confirmed Last Taken Type ezetimibe 10 mg tablet 10 mg PO DAILY 10/14/19 10/13/23 10/12/23 History 10 mg allopurinol 100 mg tablet 150 mg PO DAILY 07/20/22 10/12/23 10/12/23 History 150 mg cetirizine 10 mg tablet (Zyrtec) 10 mg PO DAILY 07/20/22 10/13/23 10/12/23 History 10 mg cholecalciferol (vitamin D3) 25 25 mcg PO DAILY 07/20/22 10/07/23 10/12/23 History mcg (1,000 unit) tablet (Vitamin 25 mcg D3) docusate sodium 100 mg capsule 200 mg PO BID 07/20/22 10/13/23 07/08/23 History (Colace) gabapentin 600 mg tablet 600 mg PO BID 07/20/22 10/13/23 10/12/23 History 600 insulin glargine 100 unit/mL 30 unit SUBCUT BEDTIME 07/20/22 10/13/23 10/12/23 History subcutaneous solution 30 units paroxetine HCl 40 mg tablet (Paxil) 40 mg PO DAILY 07/20/22 10/13/23 10/12/23 History 40 mg tamsulosin 0.4 mg capsule (Flomax) 0.4 mg PO DAILY 07/20/22 10/13/23 10/12/23 History 0.4 mg calcitriol 0.25 mcg capsule 0.25 mcg PO QAM 10/10/22 10/12/23 10/12/23 History 0.25 mcg omega-3 fatty acids 1,000 mg 1,000 mg PO BID 03/07/23 10/13/23 10/12/23 History capsule 1000 mg rosuvastatin 40 mg tablet 40 mg PO BEDTIME #30 tabs 06/28/23 10/13/23 10/12/23 Rx 40 mg budesonide 0.5 mg/2 mL suspension 0.5 mg inhalation BID.RESPIRATORY 07/08/23 10/13/23 Unknown History for nebulization PRN Shortness Of Breath acetaminophen 325 mg tablet 325 mg PO QID PRN Pain 10/13/23 10/13/23 10/12/23 History 325 mg albuterol sulfate 2.5 mg/3 mL 2.5 mg inhalation Q6H PRN 10/13/23 10/13/23 Unknown History (0.083 %) solution for nebulization shortness of breath or wheezing amiodarone 200 mg tablet 200 mg PO BID 10/13/23 10/13/23 10/12/23 History 200 mg diltiazem HCl 90 mg tablet 90 mg PO QID 10/13/23 10/13/23 10/12/23 History 90 mg famotidine 20 mg tablet 20 mg PO DAILY 10/13/23 10/13/23 10/12/23 History 20 mg folic acid 1 mg tablet 1 mg PO DAILY 10/13/23 10/13/23 10/12/23 History 1 mg furosemide 20 mg tablet 20 mg PO DAILY@0800 fluid overload 10/13/23 10/13/23 10/12/23 History guaifenesin 600 mg tablet, 600 mg PO BID 10/13/23 10/13/23 10/12/23 History extended release 12 hr (Mucinex) 600 mg heparin (porcine) 5,000 unit/mL 5,000 unit SUBCUT Q8H 10/13/23 10/13/23 10/12/23 History injection solution 5000 units insulin lispro 15 units SUBCUT TIDWM 10/13/23 10/13/23 10/12/23 History 15 units insulin lispro 100 unit/mL See Rx Instructions .Route .COMPLEX 10/13/23 10/13/23 10/12/23 History subcutaneous solution (Humalog U-100 Insulin) levetiracetam 500 mg tablet 500 mg PO BID 10/13/23 10/13/23 10/12/23 History (Keppra) 500 lisinopril 10 mg tablet 10 mg PO DAILY 10/13/23 10/13/23 10/12/23 History 10 mg magnesium hydroxide 400 mg/5 mL 15 ml PO DAILY PRN Constipation 10/13/23 10/13/23 10/12/23 History oral suspension (Milk of Magnesia) 1,200 mg ubiquinone 10/13/23 10/12/23 History Allergies Allergy/AdvReac Type Severity Reaction Status Date / Time No Known Allergies Allergy Verified 10/07/23 11:15 Current Medications Generic Name Dose Route Start Last Admin Trade Name Freq PRN Reason Stop Dose Admin Acetaminophen 650 mg 10/12/23 18:14 10/13/23 08:11 Acetaminophen 325 Mg Tablet PO 650 mg Q6H PRN Administration Mild/Mod Pain Or Temp >/= 101 Allopurinol 150 mg 10/13/23 09:00 10/13/23 08:11 Allopurinol 100 Mg Tablet PO 150 mg DAILY BEVERLY Administration Amiodarone HCl 200 mg 10/13/23 09:00 10/13/23 08:13 Amiodarone 200 Mg Tablet PO 200 mg BID BEVERLY Administration Budesonide 0.5 mg 10/13/23 03:35 10/13/23 07:34 Budesonide 0.5 Mg/2 Ml Neb INHALATION 0.5 mg BID.RESPIRATORY PRN Administration Shortness Of Breath Calcitriol 0.25 mcg 10/13/23 06:00 10/13/23 06:19 Calcitriol 0.25 Mcg Capsule PO 0.25 mcg QAM BEVERLY Administration Cetirizine HCl 10 mg 10/13/23 09:00 10/13/23 08:13 Cetirizine 10 Mg Tablet PO 10 mg DAILY BEVERLY Administration Diltiazem HCl 90 mg 10/13/23 09:00 10/13/23 08:12 Diltiazem 30 Mg Tablet PO 90 mg QID BEVERLY Administration Docusate Sodium 200 mg 10/13/23 09:00 10/13/23 08:12 Docusate Sodium 100 Mg Capsule PO 200 mg BID BEVERLY Administration Ezetimibe 10 mg 10/13/23 09:00 10/13/23 08:19 Ezetimibe 10 Mg Tablet PO 10 mg DAILY BEVERLY Administration Famotidine 20 mg 10/13/23 09:00 10/13/23 08:13 Famotidine 20 Mg Tablet PO 20 mg DAILY BEVERLY Administration Folic Acid 1 mg 10/13/23 09:00 10/13/23 08:13 Folic Acid 1 Mg Tablet PO 1 mg DAILY BEVERLY Administration Furosemide 20 mg 10/13/23 08:00 10/13/23 08:12 Furosemide 20 Mg Tablet PO 20 mg DAILY@0800 BEVERLY Administration Gabapentin 600 mg 10/13/23 09:00 10/13/23 08:12 Gabapentin 300 Mg Capsule PO 600 mg BID BEVERLY Administration Guaifenesin 600 mg 10/13/23 09:00 10/13/23 08:13 Guaifenesin 600 Mg Tablet PO 600 mg BID BEVERLY Administration Levetiracetam 1,000 mg in 100 mls @ 400 mls/hr 10/12/23 21:20 10/13/23 09:30 Keppra IV Infused Q12H BEVERLY Infusion Ceftriaxone Sodium 1,000 mg/ 50 mls @ 100 mls/hr 10/12/23 23:45 10/13/23 01:32 Sodium Chloride IV Infused Q24H [facility] Infusion Protocol Insulin Human Lispro 0 unit 10/13/23 08:00 10/13/23 08:13 Insulin Lispro 100 Unit/1 Ml SUBCUT 6 unit WM&BEDTIME BEVERLY Administration Protocol Insulin Human Lispro 10 unit 10/13/23 08:00 10/13/23 08:13 Insulin Lispro 100 Unit/1 Ml SUBCUT 10 unit TIDWM BEVERLY Administration Lisinopril 10 mg 10/13/23 09:00 10/13/23 08:12 Lisinopril 10 Mg Tablet PO 10 mg DAILY BEVERLY Administration [id number] Ethyl Esters 1,000 mg 10/13/23 09:00 10/13/23 08:12 [place]-3 Fatty Acids 1,000 Mg Capsule PO 1,000 mg BID BEVERLY Administration Paroxetine HCl 40 mg 10/13/23 09:00 10/13/23 08:12 Paroxetine 20 Mg Tablet PO 40 mg DAILY BEVERLY Administration Tamsulosin HCl 0.4 mg 10/13/23 09:00 10/13/23 08:12 Tamsulosin 0.4 Mg Capsule PO 0.4 mg DAILY BEVERLY Administration PFSH Acute 2 PFSH: Medical History (Updated 10/13/23 @ 00:06 by Blanco De La Rosa MD) Chronic kidney disease CHF (congestive heart failure), NYHA class III Hyperthyroidism Thyroid nodule Goiter Acquired hammertoes of both feet PAD (peripheral artery disease) Type 2 diabetes mellitus Onychomycosis Right middle lobe pulmonary nodule NSTEMI (non-ST elevated myocardial infarction) Atrial flutter Atherosclerosis Depressive disorder Gout Hyperlipidemia Peripheral neuropathy Atrial fibrillation Chronic atrial fibrillation Essential hypertension Surgical History S/P hernia surgery History of cholecystectomy H/O knee surgery Hx of CABG Family History Father Myocardial infarct Mother Stroke Other Family history of premature coronary artery disease Social History Smoking and tobacco/nicotine status: former use of tobacco/nicotine Quit status (tobacco/nicotine): has quit using Year quit tobacco: 1971 Former quit date comment: 1ppd x 20 years Vitals/I&O/Wt Last Vital Signs Temp 97.4 F L 10/13/23 09:04 Pulse 81 10/13/23 09:04 Resp 18 10/13/23 09:04 BP 149/69 10/13/23 09:04 Pulse Ox 99 10/13/23 09:04 O2 Del Method Nasal Cannula 10/13/23 09:04 O2 Flow Rate 2 10/13/23 07:34 10/12/23 10/13/23 10/13/23 22:59 06:59 14:59 Intake Total 200 / 200 50 / 250 100 / 100 Output Total 1300 / 1300 Balance 200 / 200 -1250 / -1050 100 / 100 Weight last 48 hrs Weight 246 lb Weight 249 lb Physical Exam 2 Narrative: The patient is currently alert. He is wearing a helmet. Helmet was removed and there was signs of left craniotomy surgery. There was no sign of any obvious Infection. Cranial nerves II through XII grossly intact. Patient did have some mild ptosis of the left eyelid possibly secondary to residual facial swelling but patient able to open his eyes. Extraocular movements intact. There were no nystagmus. Motor testing 5/5 bilaterally. Throat clear. Lungs clear. Heart: History of atrial fibrillation. Data 10/13/23 02:45 10/13/23 02:45 Micro: Microbiology 10/12/23 16:23 Urine Culture - Preliminary Urine,Clean Catch A&P Assessment and plan (1) Seizure: Impression: 1. New onset recurrent grand mal seizures on 10/12/2023 in patient with history of left subdural hematoma while on anticoagulation requiring left craniotomy with removal of left cranial bone flap and surgical evacuation of left subdural hematoma September 25, 2023 2. Left subdural hematoma September 25, 2023 requiring surgical evacuation with left craniotomy with removal of left cranial bone flap in [facility] 3. Atrial fibrillation 4. Congestive heart failure 5. Chronic renal insufficiency Plan: 1. Agree with current treatment 2. Continue Keppra 1000 mg p.o. twice daily 3. Continue fall and seizure precautions per state law and have patient continue to wear helmet for protection until he is seen by neurosurgery in 2 weeks to replace the left cranial bone flap 4. Patient stable from neurological standpoint for discharge planning (2) SDH (subdural hematoma): Consult Attestations 2 Medical Necessity Statement: Patient evaluated by neurology for recurrent seizures Coding Level of Care Code 63608 Diagnoses Seizure R56.9 SDH (subdural hematoma) S06.5XAA
[2023-10-13 11:47] LABS: Glucose Point of Care 154 mg/dL (70-110)
--- NOTE | 2023-10-13 13:00 | P.PN_ITS ---
Subjective 2 Subjective: Admitted overnight. H&P and labs appreciated. On examination patient lying comfortably in bed, wakes up to verbal and physical stimulus. Denies any nausea. Patient seems little drowsy. Blood work appreciated. Vitals/I&O/Wt Last Vital Signs Temp 97.7 F 10/13/23 11:55 Pulse 66 10/13/23 11:55 Resp 17 10/13/23 11:55 BP 118/61 10/13/23 11:55 Pulse Ox 97 10/13/23 11:55 O2 Del Method Nasal Cannula 10/13/23 11:55 O2 Flow Rate 2 10/13/23 07:34 10/12/23 10/13/23 10/13/23 22:59 06:59 14:59 Intake Total 200 / 200 50 / 250 100 / 100 Output Total 1300 / 1300 Balance 200 / 200 -1250 / -1050 100 / 100 Weight last 48 hrs Weight 111.584 kg Weight 112.945 kg Physical Exam 2 Narrative: General: Patient is lethargic. Arouses to stimulation. Head: Wearing helmet. Neck: No JVD. Cardiovascular: RRR. No gallops. No murmurs. Left greater than right 1+ edema in lower extremities. Lungs: Breath sounds are slightly diminished at bases, no use of accessory muscles, no crackles or wheezes. Skin: No jaundice. No rashes. Abdomen: Normal bowel sounds, abdomen soft and nontender. Extremities: No cyanosis or clubbing. Musculoskeletal: No swollen or erythematous joints. Neurological: Moves all 4 extremities. No myoclonus. Data 10/13/23 02:45 10/13/23 02:45 Micro: Microbiology 10/12/23 16:23 Urine Culture - Preliminary Urine,Clean Catch A&P Assessment and plan (1) Seizure: New onset seizure x 4-5 episodes today. Recent history of intracranial hemorrhage postcraniotomy. Neurology recommendations appreciated. Continue with Keppra 1 g IV every [address] head on admission negative for any acute abnormality. Check thyroid panel as recently TSH is 0.01 with mildly elevated free T4. Add a urine drug screen to the urine sample from admission. (2) SDH (subdural hematoma): Underwent surgery on 09/25/2023 Was discharged from acute care hospital on 10/11 Continue therapy Continue helmet, outpatient neurosurgery follow-up Will need replaced in postacute care when medically ready (3) Atrial fibrillation: Heart rate stable for now. Continue with home dose of amiodarone and Cardizem. Not on anticoagulation given recent subdural hematoma. Telemetry. Qualifiers: Atrial fibrillation type: unspecified Qualified Code(s): I48.91 - Unspecified atrial fibrillation (4) Abnormal urinalysis: Urinalysis concerning for possible UTI. Leukoesterase 2+. Follow-up with urine culture. Continue with empiric ceftriaxone for now. (5) CHF (congestive heart failure), NYHA class III: Chronic heart failure with borderline ejection fraction of 45 to 50% Compensated on exam Continue with home medications. Hold off on oral Lasix for now. Qualifiers: Congestive heart failure type: unspecified Qualified Code(s): I50.9 - Heart failure, unspecified (6) Essential hypertension: Goal blood pressure less than 140/90 mmHg. Current blood pressure is acceptable Continue with home medications. (7) Chronic kidney disease: Chronic kidney disease, appears to be around stage III A3 B Avoid nephrotoxins, renally dose medications Monitor BMP daily. Qualifiers: Chronic kidney disease stage: unspecified stage Qualified Code(s): N 18.9 - Chronic kidney disease, unspecified (8) Anemia: Suspect postop anemia following his prolonged hospitalization outside hospital No evidence of bleeding Continue to monitor hemoglobin daily. Check iron panel. Qualifiers: Anemia type: unspecified type Qualified Code(s): D64.9 - Anemia, unspecified Plan DVT prophylaxis: SCD CODE STATUS: Full code NPO except medications. Speech therapy and evaluation and advance diet accordingly. Attestations 2 Medical Necessity Statement*: Requires further hospitalization for management of new onset seizure in a patient with recent history of subdural hematoma postcraniotomy Diagnoses Seizure R56.9 SDH (subdural hematoma) S06.5XAA Atrial fibrillation, unspecified type I48.91 Atrial fibrillation type: unspecified Abnormal urinalysis R82.90 Congestive heart failure, NYHA class 3, unspecified congestive heart failure type I50.9 Congestive heart failure type: unspecified Essential hypertension I10 Chronic kidney disease, unspecified CKD stage N18.9 Chronic kidney disease stage: unspecified stage Anemia, unspecified type D64.9 Anemia type: unspecified type
[2023-10-13 13:26] LABS: Free T4 Free Thyroxine 0.95 ng/dL (0.82-1.77); Thyroid Stimulating Hormone 2.07 uIU/mL (0.27-4.20)
[2023-10-13 13:50] LABS: Iron 39 ug/dL (59-158); Percent Saturation 17.8 % (20-50); Total Iron Binding Capacity 218 mcg/dl; Unsaturated Iron Binding 179 ug/dL (112-347)
[2023-10-13 13:55] LABS: Amphetamines Screen Urine Negative (Negative); Barbiturates Screen Urine Negative (Negative); Benzodiazepines Screen Urine Negative (Negative); Cocaine Screen Urine Negative (Negative); Opiate Screen Urine Negative (Negative); PCP Screen Urine Negative (Negative); THC Screen Urine Negative (Negative)
--- NOTE | 2023-10-13 14:31 | PC.SLP ---
:Patient was seen today for swallowing evaluation. He appears to be doing well, however, conservatively will want him to start on a pureed and move up as we are sure he is able to do so. Discussed with nurse having him on a puree for tonight, breakfast and lunch at which time an HOME TEACHING GRADES 7 AND 8 TEACHER can re-evaluate.
[2023-10-13 16:50] LABS: Glucose Point of Care 213 mg/dL (70-110)
--- NOTE | 2023-10-13 17:27 | ECG_ITS ---
[facility] Test Date: 2023-10-13 Pat Name: Jonathan Baker Department: Room: ICU10 Gender: Male Mobility Specialist: : 1950 Requested By: Skyler Hui Order Number: [id number] Reading MD: Rod Cameron M.D. Measurements Intervals [place] Rate: 73 P: 78 IN: 269 QRS: 43 QRSD: 140 T: -11 QT: 444 QTc: 490 Interpretive Statements SINUS RHYTHM WITH FIRST DEGREE AV BLOCK RIGHT BUNDLE BRANCH BLOCK [120+ ms QRS DURATION, UPRIGHT V1, 40+ ms S IN I/aVL/V4/V5/V6] Compared to ECG 10/12/2023 16:22:07 No significant changes Electronically Signed On 10-14-2023 14:17:56 WHEEL AND AXLE INSPECTOR by Rod Cameron M.D. [email or web address] [email or web address] [email or web address] davis community hospitalPrepairpromedica fostoria community hospital.Glu Mobile/store/OM/[id number]
[2023-10-13 17:33] LABS: Basophils % 0.4 %; Eosinophils # 0.2 10^3/uL (0.0-0.8); Eosinophils % 2.9 %; Hematocrit 28.7 % (37-53); Lymphocytes # 0.9 10^3/uL (0.8-4.8); Lymphocytes % 12.3 %; Mean Corpuscular Hemoglobin 29.1 pg (27-33); Mean Corpuscular Volume 93.8 fl (82-101); Mean Platelet Volume 10.3 fL (7.4-10.4); Monocytes # 0.8 10^3/uL (0.2-0.9); Neutrophils # 5.66 10^3/uL (1.8-7.7); Neutrophils % 73.7 %; Nucleated Red Blood Cells % 0 %; Platelet Count 239 10^3/cmm (157-399); Red Blood Count 3.06 10^6/uL (3.85-5.65); Red Cell Distribution Width 15.9 % (12.1-15.1); White Blood Count 7.67 10^3/uL (3.29-11.43)
[2023-10-13 18:00] LABS: Troponin(5th) Baseline 110 ng/L (0-15)
--- NOTE | 2023-10-13 18:19 | PC.NURSE ---
recieved from 2nd floor for run of asystole per report alert and orieted responds to questions family at bedside at this time lab drawn trop elevated .. Dr Amezquita notified orders for echo
--- NOTE | 2023-10-13 18:25 | USCV_ITS ---
Renalela Jonathan Age: 73 Gender: M : 1950 Exam Date: 10/13/2023 18:42 Ordering Phys: Skyler Hui MD Technologist: Arik Robb [place] [facility] [place]: arrythmia BP: 109 / 59 HR: 73 Rhythm: Sinus Technical Quality: Suboptimal MEASUREMENTS (Male / Female) Normal Values 2D ECHO LVOT Diameter 2.0 cm LV Ejection Fraction MOD 2C 60.8 % LV Ejection Fraction 2C AL 60.7 % LA Diameter 3.4 cm LA Width 4.5 cm LA Height 5.7 cm RA Width 3.3 cm RA Height 5.0 cm Aorta at Sinotubular Diameter 2.2 cm IVC Diameter 1.7 cm M-MODE Aortic Annulus Diameter 2.4 cm LA Ao Ratio MM 1.4 MV E Point Septal Separation 0.4 cm DOPPLER AV Peak Velocity 139.0 cm/s LVOT Peak Velocity 100.0 cm/s AV Area Cont Eq vti 2.5 cm squared AV Area Cont Eq pk 2.3 cm squared MV Peak Velocity 173.0 cm/s MV Area PHT 3.6 cm squared Mitral E to A Ratio 2.1 MV E' Velocity 70.0 cm/s Mitral E to MV E' Ratio 15.1 Mitral E to LV E' Lateral Ratio 14.8 Mitral E to LV E' Septal Ratio 15.5 TR Peak Velocity 265.2 cm/s TR Peak Gradient 28.1 mmHg TR Mean Velocity 204.1 cm/s TR Mean Gradient 19.0 mmHg TR Velocity Time Integral 68.0 cm Right Atrial Pressure 3.0 mmHg Pulmonary Artery Systolic Pressu 31.1 mmHg PV Peak Velocity 121.0 cm/s RV Acceleration Time 0.1 s RV Ejection Time 0.3 s RV AcT/ET 0.3 FINDINGS Left Ventricle Normal left ventricular size, systolic function and wall thickness, with no regional wall motion abnormalities. Grade II/IV diastolic dysfunction, moderately elevated filling pressures. Left ventricular ejection fraction is estimated at 60 %. Right Ventricle Normal right ventricular size and systolic function. Normal right ventricular systolic pressure. Right Atrium The right atrium is normal in size. Left Atrium Mildly increased left atrial size. Mitral Valve Thickened mitral valve. Structurally normal mitral valve. Moderate mitral valve regurgitation. Aortic Valve Aortic valve not well visualized. No aortic valve stenosis. No aortic valve regurgitation. Tricuspid Valve Structurally normal tricuspid valve. Trace tricuspid valve regurgitation. Pulmonic Valve Pulmonic valve not well visualized. Pericardium Normal pericardium without effusion. Aorta Normal ascending aorta dimension. IVC The inferior vena cava appears normal. CONCLUSIONS Normal left ventricular size, systolic function and wall thickness, with no regional wall motion abnormalities. Grade II/IV diastolic dysfunction, moderately elevated filling pressures. Left ventricular ejection fraction is estimated at 60 %. Thickened mitral valve. Structurally normal mitral valve. Moderate mitral valve regurgitation. The previous study was done less than 4 months ago. The mild global hypokinesis seen on that study is not evident today. Otherwise, no significant change. Dr. Rod Cameron MD (Electronically Signed) Final Date: 14 October 2023 08:30 S
[2023-10-13 19:49] LABS: Troponin 5 2HR 104.7 ng/L (0-15); Troponin 5 2HR Delta -5.3 ABS# (0-10)
--- NOTE | 2023-10-13 20:22 | ECG_ITS ---
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 Measurements Intervals [place] Rate: 72 P: 88 [place]: 269 QRS: 57 QRSD: 135 T: 55 QT: 442 QTc: 487 Interpretive Statements SINUS RHYTHM WITH FIRST DEGREE AV BLOCK RIGHT BUNDLE BRANCH BLOCK [120+ ms QRS DURATION, UPRIGHT V1, 40+ ms S IN I/aVL/V4/V5/V6] Compared to ECG 10/13/2023 18:02:57 No significant changes Electronically Signed On 10-14-2023 14:20:34 SCHEDULING MANAGER by Rod Cameron M.D. [email or web address] Grid [email or web address] county regional medical center.[id number]
[2023-10-13 20:29] LABS: Glucose Point of Care 245 mg/dL (70-110)
[2023-10-13] MEDS: insulin glargine 100 units/1 mL 24 UNIT SUBCUT (20:45)
[2023-10-13] MEDS: atorvastatin 40 mg Tablet 80 MG PO (20:45)
[2023-10-13 23:13] LABS: Troponin 5 6HR Delta 2.3 ng/L (0-12)
[2023-10-13 23:15] LABS: Troponin 5 6HR 112.3 ng/L (0-15)
--- NOTE | 2023-10-13 23:27 | ECG_ITS ---
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 Measurements Intervals [place] Rate: 72 P: 85 NE: 264 QRS: 64 QRSD: 137 T: 58 QT: 448 QTc: 494 Interpretive Statements SINUS RHYTHM WITH FIRST DEGREE AV BLOCK RIGHT BUNDLE BRANCH BLOCK [120+ ms QRS DURATION, UPRIGHT V1, 40+ ms S IN I/aVL/V4/V5/V6] Compared to ECG 10/13/2023 20:22:19 No significant changes Electronically Signed On 10-14-2023 14:20:37 ACCOUNT CLASSIFICATION CLERK by Rod Cameron M.D. [email or web address] Bidmanagement GmbHReactivitymemorial health system selby general hospital.IM-Sense/store/OM/[id number]/[id number]"
[2023-10-14] VITALS (98 sets, daily range): BP systolic 108–161; BP diastolic 61–111; PULSE 50–138; RESP 10–28; TEMP 36.4–37; O2SAT 16–99
[2023-10-14] MEDS: cefTRIAXone 1,000 MG in sodium chloride 0.9% (plus) 50 ML 100 MG IV (00:04)
[2023-10-14 04:14] LABS: Basophils % 0.5 %; Eosinophils # 0.3 10^3/uL (0.0-0.8); Eosinophils % 3.4 %; Hematocrit 27.2 % (37-53); Lymphocytes % 11.8 %; Mean Corpuscular HGB Conc 31.3 g/dL (30-55); Mean Corpuscular Hemoglobin 29.3 pg (27-33); Mean Corpuscular Volume 93.8 fl (82-101); Mean Platelet Volume 11.3 fL (7.4-10.4); Monocytes # 0.9 10^3/uL (0.2-0.9); Monocytes % 10.8 %; Neutrophils % 72.8 %; Nucleated Red Blood Cells % 0 %; Platelet Count 259 10^3/cmm (157-399); Red Cell Distribution Width 16.2 % (12.1-15.1); White Blood Count 8.12 10^3/uL (3.29-11.43)
[2023-10-14 04:38] LABS: Alanine Aminotransferase 29 U/L (0-41); Albumin Level 3.1 g/dL (3.5-5.2); Alkaline Phosphatase 178 U/L (40-130); Anion Gap 11.9 (5-19); Aspartate Amino Transferase 22 U/L (0-40); Blood Urea Nitrogen 38 mg/dL (8-23); Calcium 8.1 mg/dL (8.5-10.5); Carbon Dioxide 27 mmol/L (22-29); Chloride 100 mmol/L (98-107); Globulin 2.9 g/dL (1.3-4.6); Glucose 122 mg/dL (65-115); Osmolality Calculated 288 mOsm/kg (285-295); Potassium 4.9 mmol/L (3.5-5.1); Sodium 134 mmol/L (136-145); Total Bilirubin 0.3 mg/dL (0.15-1.2)
[2023-10-14] MEDS: calcitriol 0.25 mcg Capsule PO (05:08)
[2023-10-14 08:56] LABS: Glucose Point of Care 144 mg/dL (70-110)
[2023-10-14] MEDS: docusate sodium 100 mg Capsule 200 MG PO ×2 (09:05→17:41)
[2023-10-14] MEDS: ezetimibe 10 mg Tablet PO (09:05)
[2023-10-14] MEDS: gabapentin 300 mg Capsule 600 MG PO ×2 (09:05→17:41)
[2023-10-14] MEDS: PARoxetine 20 mg Tablet 40 MG PO (09:05)
[2023-10-14] MEDS: omega-3 fatty acids 1,000 mg Capsule 1000 MG PO ×2 (09:05→17:41)
[2023-10-14] MEDS: cetirizine 10 mg Tablet PO (09:05)
[2023-10-14] MEDS: folic acid 1 mg Tablet PO (09:06)
[2023-10-14] MEDS: allopurinol 100 mg Tablet 150 MG PO (09:06)
[2023-10-14] MEDS: famotidine 20 mg Tablet PO (09:06)
[2023-10-14] MEDS: tamsulosin 0.4 mg Capsule PO (09:06)
[2023-10-14] MEDS: guaiFENesin 600 mg Tablet PO ×2 (09:06→17:41)
[2023-10-14] MEDS: lisinopril 10 mg Tablet PO (09:06)
[2023-10-14] MEDS: levETIRAcetam 1,000 MG/100 ML PREMIX 400 MG IV ×2 (09:07→20:53)
[2023-10-14] MEDS: insulin lispro 100 unit/1 mL SUBCUT ×4 (09:31→20:52)
--- NOTE | 2023-10-14 12:01 | PC.SOCIAL ---
Pt is in Observation IMM not updated with pt or family.
[2023-10-14 12:05] LABS: Glucose Point of Care 220 mg/dL (70-110)
--- NOTE | 2023-10-14 12:31 | P.PN_ITS ---
Subjective 2 Subjective: seen this am he says he feels well had sinus pause yesterday. has been seizure free since admission Vitals/I&O/Wt Last Vital Signs Temp 97.5 F L 10/14/23 04:00 Pulse 90 10/14/23 12:15 Resp 22 H 10/14/23 12:15 BP 136/70 10/14/23 12:15 Pulse Ox 99 10/14/23 12:00 O2 Del Method Nasal Cannula 10/14/23 08:32 O2 Flow Rate 2 10/14/23 08:32 10/13/23 10/14/23 10/14/23 22:59 06:59 14:59 Intake Total 100 / 200 50 / 250 Output Total 650 / 1650 1300 / 2950 Balance -550 / -1450 -1250 / -2700 Weight last 48 hrs Weight 110.677 kg Weight 111.584 kg Weight 112.945 kg Physical Exam 2 Narrative: General: Slightly lethargic but responses Head: craniotomy scar present on left side Cardiovascular: RRR. No gallops. No murmurs. Left greater than right 1+ edema in lower extremities. Lungs: Breath sounds are slightly diminished at bases, no use of accessory muscles, no crackles or wheezes. Skin: No jaundice. No rashes. Abdomen: Normal bowel sounds, abdomen soft and nontender. Extremities: No cyanosis or clubbing. Musculoskeletal: No swollen or erythematous joints. Neurological: Moves all 4 extremities. Data 10/14/23 03:20 10/14/23 03:20 Micro: Microbiology 10/12/23 16:23 Urine Culture - Final Urine,Clean Catch A&P Assessment and plan (1) Seizure: New onset seizure x 4-5 episodes prior to admission. Recent history of intracranial hemorrhage postcraniotomy. Neurology recommendations appreciated. Continue with Keppra 1 g IV every [address] head on admission negative for any acute abnormality. Check thyroid panel as recently TSH is 0.01 with mildly elevated free T4. CHeck urine drug screen Neurology on board. (2) SDH (subdural hematoma): Underwent surgery on 09/25/2023 Was discharged from acute care hospital on 10/11 Continue therapy Continue helmet, outpatient neurosurgery follow-up Will need replaced in postacute care when medically ready (3) Atrial fibrillation: Heart rate stable for now. Holding home dose of amiodarone and Cardizem at this time Not on anticoagulation given recent subdural hematoma. Telemetry. Sinus pause seen, 7-10 secs Consult cardiology Qualifiers: Atrial fibrillation type: unspecified Qualified Code(s): I48.91 - Unspecified atrial fibrillation (4) Abnormal urinalysis: Urinalysis concerning for possible UTI. Leukoesterase 2+. Follow-up with urine culture. Continue with empiric ceftriaxone for now. (5) CHF (congestive heart failure), NYHA class III: Chronic heart failure with borderline ejection fraction of 45 to 50% Compensated on exam Continue with home medications. Hold off on oral Lasix for now. Qualifiers: Congestive heart failure type: unspecified Qualified Code(s): I50.9 - Heart failure, unspecified (6) Essential hypertension: Goal blood pressure less than 140/90 mmHg. Current blood pressure is acceptable Continue with home medications. (7) Chronic kidney disease: Chronic kidney disease, appears to be around stage III A3 B Avoid nephrotoxins, renally dose medications Monitor BMP daily. Qualifiers: Chronic kidney disease stage: unspecified stage Qualified Code(s): N 18.9 - Chronic kidney disease, unspecified (8) Anemia: Suspect postop anemia following his prolonged hospitalization outside hospital No evidence of bleeding Continue to monitor hemoglobin daily. Check iron panel. Qualifiers: Anemia type: unspecified type Qualified Code(s): D64.9 - Anemia, unspecified Plan DVT prophylaxis: SCD CODE STATUS: Full code NPO except medications. Speech therapy and evaluation and advance diet accordingly. Attestations 2 Medical Necessity Statement*: continue to monitor in ICU today Diagnoses Seizure R56.9 SDH (subdural hematoma) S06.5XAA Atrial fibrillation, unspecified type I48.91 Atrial fibrillation type: unspecified Abnormal urinalysis R82.90 Congestive heart failure, NYHA class 3, unspecified congestive heart failure type I50.9 Congestive heart failure type: unspecified Essential hypertension I10 Chronic kidney disease, unspecified CKD stage N18.9 Chronic kidney disease stage: unspecified stage Anemia, unspecified type D64.9 Anemia type: unspecified type
--- NOTE | 2023-10-14 16:50 | P.CONIM_ITS ---
Providers/Reason For Consult 2 Consulting Physician/Specialty*: Royer Dennison MD/ Cardiology Reason for Consult*: Atrial fibrillation/ bradycardia Requesting Physician: Dr Cm Attending Physician: Wendie Cm MD Primary Care Provider: Luana Villegas MD History of Present Illness History of Present Illness Jonathan Baker is a 73 year old male with past medical history of atrial fibrillation who had subdural hematoma and brain bleed with midline shift last month requiring craniotomy at outside hospital. During surgery, he had coded 4 times. He required temporary pacemaker as well. He was discharged home on amiodarone and Cardizem. Cardiology was consulted today as he had significant pause for almost 10 seconds yesterday. He was moved to ICU. Currently denies chest pain. No shortness of breath. No chest pain. Review of Systems 2 General: Reports: 10 or more systems reviewed and unremarkable except in HPI and below Medications/Allergies Home Medications Medication Instructions Recorded Confirmed Last Taken Type ezetimibe 10 mg tablet 10 mg PO DAILY@10/14/19 10/13/23 07/08/23 History allopurinol 100 mg tablet 150 mg PO DAILY@07/20/22 10/13/23 07/08/23 History cetirizine 10 mg tablet (Zyrtec) 10 mg PO DAILY@07/20/22 10/13/23 07/08/23 History cholecalciferol (vitamin D3) 25 25 mcg PO DAILY@07/20/22 10/13/23 10/12/23 History mcg (1,000 unit) tablet (Vitamin 25 mcg D3) docusate sodium 100 mg capsule 200 mg PO BID PRN Constipation 07/20/22 10/13/23 07/08/23 History (Colace) gabapentin 600 mg tablet 600 mg PO BID@07/20/22 10/13/23 07/08/23 History paroxetine HCl 40 mg tablet (Paxil) 40 mg PO DAILY@07/20/22 10/13/23 07/08/23 History tamsulosin 0.4 mg capsule (Flomax) 0.4 mg PO DAILY@07/20/22 10/13/23 07/07/23 History calcitriol 0.25 mcg capsule 0.25 mcg PO DAILY@10/10/22 10/13/23 07/08/23 History omega-3 fatty acids 1,000 mg 1,000 mg PO BID@,03/07/23 10/13/23 07/08/23 History capsule rosuvastatin 40 mg tablet 40 mg PO BEDTIME #30 tabs 06/28/23 10/13/23 07/07/23 Rx budesonide 0.5 mg/2 mL suspension 0.5 mg inhalation BID.RESPIRATORY 07/08/23 10/13/23 Unknown History for nebulization PRN Shortness Of Breath acetaminophen 325 mg tablet 650 mg PO QID 10/13/23 10/13/23 Unknown History albuterol sulfate 2.5 mg/3 mL 2.5 mg inhalation Q6H PRN 10/13/23 10/13/23 Unknown History (0.083 %) solution for nebulization shortness of breath or wheezing amiodarone 200 mg tablet 200 mg PO BID@,10/13/23 10/13/23 Unknown History bacitracin-polymyxin B topical See Rx Instructions .Route .COMPLEX 10/13/23 10/13/23 Unknown History ointment bisacodyl 10 mg rectal suppository 10 mg FL DAILY PRN Constipation 10/13/23 10/13/23 Unknown History diltiazem HCl 90 mg tablet 90 mg PO QID 10/13/23 10/13/23 10/12/23 History 90 mg famotidine 20 mg tablet 20 mg PO DAILY@07 10/13/23 10/13/23 Unknown History folic acid 1 mg tablet 1 mg PO DAILY@10/13/23 10/13/23 10/12/23 History 1 mg furosemide 20 mg tablet 20 mg PO DAILY@07 fluid overload 10/13/23 10/13/23 Unknown History guaifenesin 600 mg tablet, 600 mg PO BID@,10/13/23 10/13/23 Unknown History extended release 12 hr (Mucinex) heparin (porcine) 5,000 unit/mL 5,000 unit SUBCUT TID@06,,10/13/23 10/13/23 Unknown History injection solution insulin glargine 100 unit/mL (3 30 unit SUBCUT BEDTIME 10/13/23 10/13/23 Unknown History mL) subcutaneous pen (Lantus Solostar U-100 Insulin) insulin lispro 100 unit/mL 15 unit SUBCUT TIDWM 10/13/23 10/13/23 Unknown History subcutaneous pen insulin lispro 100 unit/mL See Rx Instructions .Route .COMPLEX 10/13/23 10/13/23 Unknown History subcutaneous solution (Humalog U-100 Insulin) levetiracetam 500 mg tablet 500 mg PO BID@07,19 10/13/23 10/13/23 Unknown History (Keppra) lidocaine 4 % topical cream 1 applic topical DAILY@10/13/23 10/13/23 Unknown History lisinopril 10 mg tablet 10 mg PO DAILY@10/13/23 10/13/23 Unknown History magnesium hydroxide 400 mg/5 mL 15 ml PO DAILY@07 Constipation 10/13/23 10/13/23 Unknown History oral suspension (Milk of Magnesia) magnesium hydroxide 400 mg/5 mL 30 ml PO DAILY PRN Constipation 10/13/23 10/13/23 Unknown History oral suspension (Milk of Magnesia) phenol 1.5 %-glycerin 33 % mucosal See Rx Instructions .Route .COMPLEX 10/13/23 10/13/23 Unknown History spray (Chloraseptic Max Sore Throat) polyethylene glycol 3350 17 gram 17 g PO DAILY PRN Constipation 10/13/23 10/13/23 Unknown History oral powder packet (Miralax) sennosides 8.8 mg/5 mL oral syrup 5 ml PO DAILY PRN Constipation 10/13/23 10/13/23 Unknown History sodium phosphates 19 gram-7 118 ml FL DAILY PRN Constipation 10/13/23 10/13/23 Unknown History gram/118 mL enema (Fleet Enema) ubiquinone 1 cap PO DAILY@10/13/23 10/13/23 Unknown History Allergies Allergy/AdvReac Type Severity Reaction Status Date / Time No Known Allergies Allergy Verified 10/07/23 11:15 Current Medications Generic Name Dose Route Start Last Admin Trade Name Freq PRN Reason Stop Dose Admin Acetaminophen 650 mg 10/12/23 18:14 10/13/23 08:11 Acetaminophen 325 Mg Tablet PO 650 mg Q6H PRN Administration Mild/Mod Pain Or Temp >/= 101 Allopurinol 150 mg 10/13/23 09:00 10/14/23 09:06 Allopurinol 100 Mg Tablet PO 150 mg DAILY BEVERLY Administration Amiodarone HCl 200 mg 10/13/23 09:00 10/13/23 08:13 Amiodarone 200 Mg Tablet PO 200 mg BID BEVERLY Administration Atorvastatin Calcium 80 mg 10/13/23 21:00 10/13/23 20:45 Atorvastatin 40 Mg Tablet PO 80 mg BEDTIME BEVERLY Administration Budesonide 0.5 mg 10/13/23 03:35 10/13/23 07:34 Budesonide 0.5 Mg/2 Ml Neb INHALATION 0.5 mg BID.RESPIRATORY PRN Administration Shortness Of Breath Calcitriol 0.25 mcg 10/13/23 06:00 10/14/23 05:08 Calcitriol 0.25 Mcg Capsule PO 0.25 mcg QAM BEVERLY Administration Cetirizine HCl 10 mg 10/13/23 09:00 10/14/23 09:05 Cetirizine 10 Mg Tablet PO 10 mg DAILY BEVERLY Administration Diltiazem HCl 90 mg 10/13/23 09:00 10/13/23 13:40 Diltiazem 30 Mg Tablet PO 90 mg QID BEVERLY Administration Docusate Sodium 200 mg 10/13/23 09:00 10/14/23 09:05 Docusate Sodium 100 Mg Capsule PO 200 mg BID BEVERLY Administration Ezetimibe 10 mg 10/13/23 09:00 10/14/23 09:05 Ezetimibe 10 Mg Tablet PO 10 mg DAILY BEVERLY Administration Famotidine 20 mg 10/13/23 09:00 10/14/23 09:06 Famotidine 20 Mg Tablet PO 20 mg DAILY BEVERLY Administration Folic Acid 1 mg 10/13/23 09:00 10/14/23 09:06 Folic Acid 1 Mg Tablet PO 1 mg DAILY BEVERLY Administration Furosemide 20 mg 10/13/23 08:00 10/13/23 08:12 Furosemide 20 Mg Tablet PO 20 mg DAILY@0800 BEVERLY Administration Gabapentin 600 mg 10/13/23 09:00 10/14/23 09:05 Gabapentin 300 Mg Capsule PO 600 mg BID BEVERLY Administration Guaifenesin 600 mg 10/13/23 09:00 10/14/23 09:06 Guaifenesin 600 Mg Tablet PO 600 mg BID BEVERLY Administration Levetiracetam 1,000 mg in 100 mls @ 400 mls/hr 10/12/23 21:20 10/14/23 09:07 Keppra IV 400 mls/hr Q12H BEVERLY Administration Ceftriaxone Sodium 1,000 mg/ 50 mls @ 100 mls/hr 10/12/23 23:45 10/14/23 03:52 Sodium Chloride IV Infused Q24H [facility] Infusion Protocol Insulin Glargine 24 unit 10/13/23 21:00 10/13/23 20:45 Insulin Glargine 100 Units/1 Ml SUBCUT 24 unit BEDTIME BEVERLY Administration Insulin Human Lispro 0 unit 10/13/23 08:00 10/14/23 12:53 Insulin Lispro 100 Unit/1 Ml SUBCUT 6 unit WM&BEDTIME BEVERLY Administration Protocol Insulin Human Lispro 10 unit 10/13/23 08:00 10/14/23 13:04 Insulin Lispro 100 Unit/1 Ml SUBCUT Not Given TIDWM BEVERLY Lisinopril 10 mg 10/13/23 09:00 10/14/23 09:06 Lisinopril 10 Mg Tablet PO 10 mg DAILY BEVERLY Administration Teulj-1-Begl Ethyl Esters 1,000 mg 10/13/23 09:00 10/14/23 09:05 [place]-3 Fatty Acids 1,000 Mg Capsule PO 1,000 mg BID BEVERLY Administration Paroxetine HCl 40 mg 10/13/23 09:00 10/14/23 09:05 Paroxetine 20 Mg Tablet PO 40 mg DAILY BEVERLY Administration Tamsulosin HCl 0.4 mg 10/13/23 09:00 10/14/23 09:06 Tamsulosin 0.4 Mg Capsule PO 0.4 mg DAILY BEVERLY Administration PFSH Acute 2 PFSH: Medical History Chronic kidney disease CHF (congestive heart failure), NYHA class III Hyperthyroidism Thyroid nodule Goiter Acquired hammertoes of both feet PAD (peripheral artery disease) Type 2 diabetes mellitus Onychomycosis Right middle lobe pulmonary nodule NSTEMI (non-ST elevated myocardial infarction) Atrial flutter Atherosclerosis Depressive disorder Gout Hyperlipidemia Peripheral neuropathy Atrial fibrillation Chronic atrial fibrillation Essential hypertension Surgical History S/P hernia surgery History of cholecystectomy H/O knee surgery Hx of CABG Family History Father Myocardial infarct Mother Stroke Other Family history of premature coronary artery disease Social History Smoking and tobacco/nicotine status: former use of tobacco/nicotine Quit status (tobacco/nicotine): has quit using Year quit tobacco: 1971 Former quit date comment: 1ppd x 20 years Vitals/I&O/Wt Last Vital Signs Temp 97.5 F L 10/14/23 04:00 Pulse 85 10/14/23 16:30 Resp 15 10/14/23 16:30 BP 145/74 10/14/23 16:30 Pulse Ox 97 10/14/23 16:30 O2 Del Method Nasal Cannula 10/14/23 08:32 O2 Flow Rate 2 10/14/23 08:32 10/14/23 10/14/23 10/14/23 06:59 14:59 22:59 Intake Total 50 / 250 720 / 720 Output Total 1300 / 2950 1000 / 1000 Balance -1250 / -2700 -280 / -280 Weight last 48 hrs Weight 244 lb Weight 246 lb Weight 249 lb Physical Exam 2 Narrative: GENERAL: Patient is alert, awake and oriented x3. [] NECK: No jugular vein distension. [] HEENT: No cyanosis. No icterus. No pallor. [] HEART: Regular S1 and S2. No murmur, rub or gallop. [] LUNGS: Clear to auscultate bilaterally. [] CENTRAL NERVOUS SYSTEM: Grossly nonfocal. [] EXTREMITIES: Lower extremities with 1+ edema bilaterally. Data 10/14/23 03:20 10/14/23 03:20 Micro: Microbiology 10/12/23 16:23 Urine Culture - Final Urine,Clean Catch A&P Assessment and plan (1) Atrial fibrillation: Qualifiers: Atrial fibrillation type: unspecified Qualified Code(s): I48.91 - Unspecified atrial fibrillation (2) Essential hypertension: (3) CHF (congestive heart failure), NYHA class III: Qualifiers: Congestive heart failure type: unspecified Qualified Code(s): I50.9 - Heart failure, unspecified (4) Seizure: (5) SDH (subdural hematoma): (6) Sinus pause: Plan Patient seems to have features of sick sinus syndrome. Had 1 long pauses between 7 to 10 seconds yesterday. No more pauses since coming to the ICU. His amiodarone and Cardizem has been held. After discussion with family, we will resume amiodarone as he is again going into A-fib with RVR. Will keep holding Cardizem. Per family had temporary pacemaker placement at time of craniotomy as well as he was having long pauses. Patient may need pacemaker if he has more pauses. Continue telemonitoring. Keep electrolytes within normal limits. Thank you for involving us with care of this patient. Will continue to follow. Please call with questions. Consult Attestations 2 Medical Necessity Statement: Care expected to cross 2 midnights. Coding Level of Care Code Acute Code for Chg Fwd Diagnoses Atrial fibrillation, unspecified type I48.91 Atrial fibrillation type: unspecified Essential hypertension I10 Congestive heart failure, NYHA class 3, unspecified congestive heart failure type I50.9 Congestive heart failure type: unspecified Seizure R56.9 SDH (subdural hematoma) S06.5XAA Sinus pause I45.5
[2023-10-14 16:53] LABS: Glucose Point of Care 207 mg/dL (70-110)
--- NOTE | 2023-10-14 17:00 | PC.NURSE ---
While Dr. Dennison was seeing the pt with family in the room, the pt had an episode of a. fib w/ rvr and the pt stayed in a. fib with HR in range of 120's-160's.
--- NOTE | 2023-10-14 18:16 | PC.NURSE ---
While pulling IV meds for the pt, he convertedback into sinus rhythm. Decided to hold off on giving metoprolol 5mg IVP but will go ahead and start the amio drip at 1mg/hr
[2023-10-14 19:54] LABS: Glucose Point of Care 197 mg/dL (70-110)
[2023-10-14] MEDS: insulin glargine 100 units/1 mL 24 UNIT SUBCUT (20:52)
[2023-10-14] MEDS: atorvastatin 40 mg Tablet 80 MG PO (20:52)
[2023-10-14] MEDS: metoprolol tartrate 1 mg/1 mL SDV 5 mL 5 MG IVP (23:02)
--- NOTE | 2023-10-14 23:44 | P.PNCC_ITS ---
Critical Care Event Note Atrial fibrillation with RVR symptomatic with chest pain earlier this evening despite being on amiodarone drip heart rates 140s. Maintaining blood pressure. Discussed with cardiology, discussed with nursing staff, slow metoprolo push 5mg given but not completed. About 6s pause encountered so metoprolol discontinued after about 4ml. HR back to AFib w RVR with slightly better rates. Monitored with pacing pads applied and crash cart in the room. Slightly later again with noted pause/asystole, unresponsive, Code Blue initiated and CPR administered for about 3 minutes, subsequently awake, alert, following directions with ROSC, maintaining saturation on 6-7L NC, maintaining blood pressure, but HR fluctuating between AFib w RVR and bradycardia/pauses. Discussed w cardiology, ER physician at bedside, discussed w family. Cardiology making preparations for transvenous pacing, family agreeable and agreeable. Transcutaneous pacing st arted, 60BPM capturing at 8 MA. He subsequently had 3 more episodes of loss of pulse requiring brief (less than a minute) chest compressions. Family agreeable with ER physician placing CVC as well. Per discussion w family he had required transient pacing with temporary pacemaker at the time of neurosurgery, which could later be removed. He had cardiac arrest x4 at the time. Would benefit from reimaging w CT head as well, but after he is more hemodynamically more stable. Critical Care Time Code activated: Yes Critical Care Time (min): 55 Additional information about critical care time: 55 minutes The high probability of a clinically significant, sudden or life threatening deterioration of the patient's cardiovascular system(s) required my full and direct attention, intervention and personal management. The critical care time is as shown. This time is in addition to time spent performing any reported procedures but includes the following: [x] Data and vital sign review and interpretation [x] Patient assessment, examination and intervention [x] Documentation [x] Medication orders and management Coding Level of Care Code Critical Care
[2023-10-15] VITALS (96 sets, daily range): BP systolic 103–153; BP diastolic 64–109; PULSE 73–131; RESP 4–33; TEMP 36.2–37; O2SAT 88–100
[2023-10-15 00:04] LABS: Glucose Point of Care 137 mg/dL (70-110)
--- NOTE | 2023-10-15 00:17 | P.HPUD_ITS ---
Surgery/Procedure H&P Update DATE OF PROCEDURE: October 15, 2023 DATE H&P PERFORMED: 10/14/23 H&P UPDATE INFORMATION: I have reviewed H&P completed within last 30 days, I have examined patient prior to procedure and Changes to prior documentation as noted here CHANGES TO PREVIOUS DOCUMENTATION: Patient went into A-fib with RVR. Initially was started on amiodarone drip. However still was having RVR episodes with significant chest discomfort. He was given metoprolol IV. Once push was long term through, patient developed asystole. It required multiple brief episodes of chest compressions. Patient findings are consistent with sick sinus syndrome. Will proceed with transvenous pacemaker and he will eventually need permanent pacemaker placement. PREOP DIAGNOSIS: Sick sinus syndrome/asystole PRIMARY INDICATION FOR PROCEDURE: Sick sinus syndrome/asystole PLANNED PROCEDURE: Temporary transvenous pacemaker PATIENT REASSESSED PRIOR TO SEDATION, WITH NO CHANGE NOTED: Yes PHYSICAL EXAM: alert, oriented x 3, clear to auscultation bilaterally and regu lar rate & rhythm AIRWAY EVAL/ANESTHESIA PLAN: normal airway, ASA IV, Local Anesthesia, Risks, benefits & alternatives of sedation and/or procedure discussed and Patient agrees to continue as planned ADDITIONAL INFORMATION: Moderate sedation
--- NOTE | 2023-10-15 00:57 | P.PCN_ITS ---
Procedure Note: Date of procedure: 10/15/23 Pre-procedure diagnosis: Sinus pauses/ Asystole Post-procedure diagnosis: other (Atrial fibrillation) Procedure: Temporary transvenous pacemaker placement: After access was obtained in right common femoral vein with micropuncture, we advanced 6 Sinhala sheath. Under fluoroscopic guidance we advanced pacemaker wire and placed in the RV. Patient was put on demand pacing with heart rate of 60 bpm, sensitivity of 3 mV and output of 5 mA. Good capture was obtained. 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
[2023-10-15 02:17] LABS: Basophils % 0.4 %; Eosinophils # 0.2 10^3/uL (0.0-0.8); Eosinophils % 1.8 %; Lymphocytes # 0.6 10^3/uL (0.8-4.8); Lymphocytes % 6.2 %; Mean Corpuscular HGB Conc 31.5 g/dL (30-55); Mean Corpuscular Hemoglobin 29.7 pg (27-33); Mean Corpuscular Volume 94.4 fl (82-101); Mean Platelet Volume 10.4 fL (7.4-10.4); Monocytes # 1.1 10^3/uL (0.2-0.9); Monocytes % 10.9 %; Neutrophils # 8.23 10^3/uL (1.8-7.7); Neutrophils % 79.7 %; Nucleated Red Blood Cells % 0 %; Platelet Count 267 10^3/cmm (157-399); Red Blood Count 2.86 10^6/uL (3.85-5.65); Red Cell Distribution Width 16.2 % (12.1-15.1); White Blood Count 10.33 10^3/uL (3.29-11.43)
[2023-10-15 02:39] LABS: Magnesium 1.7 mg/dL (1.7-2.3)
[2023-10-15] MEDS: cefTRIAXone 1,000 MG in sodium chloride 0.9% (plus) 50 ML 100 MG IV (02:47)
[2023-10-15 02:54] LABS: Blood Urea Nitrogen 32 mg/dL (8-23); Carbon Dioxide 25 mmol/L (22-29); Chloride 100 mmol/L (98-107); Glucose 114 mg/dL (65-115); Osmolality Calculated 288 mOsm/kg (285-295); Sodium 135 mmol/L (136-145)
--- NOTE | 2023-10-15 03:56 | PC.NURSE ---
2300 - Atrial fibrillation with RVR symptomatic with chest pain. on amiodarone drip heart rates 140s. Dr Pereira contacted. Orders for metoprolol IVP received. Administered per protocol by nursing staff. During administration patient had 7 second rhythm pause. IV push stopped and amiodarone drip paused. Dr Pereira contacted. 2310- Nursing Staff attempts to start second IV access on patient. During attempt patient went asystole. Quality chest compressions started and code leelee called over head.
[2023-10-15] MEDS: calcitriol 0.25 mcg Capsule PO (05:11)
[2023-10-15 07:07] LABS: Glucose Point of Care 124 mg/dL (70-110)
--- NOTE | 2023-10-15 10:10 | P.CONIM_ITS ---
Providers/Reason For Consult 2 Consulting Physician/Specialty*: Dr. Connell/cardiothoracic surgery Reason for Consult*: Need for permanent pacemaker implantation Requesting Physician: Dr. Dennison Attending Physician: Wendie Cm MD Primary Care Provider: Luana Villegas MD History of Present Illness History of Present Illness Jonathan Baker is a 73 year old male who had a transvenous temporary pacemaker placed late yesterday by Dr. Dennison related to significant sinus pauses. Gentleman has a history of a subdural hematoma requiring craniotomy last month at outside facility. Apparently, he had a syncopal episode while getting out of bed. It is unclear as to whether this may be related to a cardiac rhythm disturbance. He suffered cardiac arrest requiring resuscitation x 4, partially felt to be in relation to the delayed presentation from his acute traumatic event and subsequent subdural hematoma. He has longstanding atrial fibrillation A-fib with RVR and apparently had been previously scheduled for rhythm evaluation and consideration for ablative therapy. During attempts for rhythm management hehas developed substantial and highly symptomatic bradycardia as well as sinus pauses with 1 episode up to 10 seconds. Transvenous pacemaker has been placed by Dr. Dennison. I was requested to evaluate to consider permanent pacemaker implantation. Currently Mr. Baker is an ICU bed 10. It is noted that he did require a temporary pacemaker during his last hospitalization related to his craniotomy which was performed related to a delayed presentation of a subdural hematoma. He is noted to have renal insufficiency with a creatinine currently 1.6. He is also moderately anemic with a hemoglobin of 8.5. Chest x-ray reveals clear lung mcleod though there is a small left pleural effusion. He has had a prior sternotomy/CABG with sternal wires in place. Transthoracic echocardiogram from October 13 reveals preserved LV function with ejection fraction of 60%. There is mildly thickened mitral valve. No substantial pericardial effusion is mentioned. 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 This is resulted in some somnolence, though he is easily arousable and appears to answer questions appropriate. He appears to be oriented and is understanding of the recommendation for pacemaker and has given consent. Review of Systems 2 General: Reports: ROS unobtainable due to mental status Narrative: Review of systems reviewed through the medical record. Mr. Baker is rather somnolent, though answers questions appropriate and is easily arousable. Medications/Allergies Home Medications Medication Instructions Recorded Confirmed Last Taken Type ezetimibe 10 mg tablet 10 mg PO DAILY@10/14/19 10/13/23 07/08/23 History allopurinol 100 mg tablet 150 mg PO DAILY@07/20/22 10/13/23 07/08/23 History cetirizine 10 mg tablet (Zyrtec) 10 mg PO DAILY@07/20/22 10/13/23 07/08/23 History cholecalciferol (vitamin D3) 25 25 mcg PO DAILY@07/20/22 10/13/23 10/12/23 History mcg (1,000 unit) tablet (Vitamin 25 mcg D3) docusate sodium 100 mg capsule 200 mg PO BID PRN Constipation 07/20/22 10/13/23 07/08/23 History (Colace) gabapentin 600 mg tablet 600 mg PO BID@07/20/22 10/13/23 07/08/23 History paroxetine HCl 40 mg tablet (Paxil) 40 mg PO DAILY@07/20/22 10/13/23 07/08/23 History tamsulosin 0.4 mg capsule (Flomax) 0.4 mg PO DAILY@07/20/22 10/13/23 07/07/23 History calcitriol 0.25 mcg capsule 0.25 mcg PO DAILY@10/10/22 10/13/23 07/08/23 History omega-3 fatty acids 1,000 mg 1,000 mg PO BID@03/07/23 10/13/23 07/08/23 History capsule rosuvastatin 40 mg tablet 40 mg PO BEDTIME #30 tabs 06/28/23 10/13/23 07/07/23 Rx budesonide 0.5 mg/2 mL suspension 0.5 mg inhalation BID.RESPIRATORY 07/08/23 10/13/23 Unknown History for nebulization PRN Shortness Of Breath acetaminophen 325 mg tablet 650 mg PO QID 10/13/23 10/13/23 Unknown History albuterol sulfate 2.5 mg/3 mL 2.5 mg inhalation Q6H PRN 10/13/23 10/13/23 Unknown History (0.083 %) solution for nebulization shortness of breath or wheezing amiodarone 200 mg tablet 200 mg PO BID@,10/13/23 10/13/23 Unknown History bacitracin-polymyxin B topical See Rx Instructions .Route .COMPLEX 10/13/23 10/13/23 Unknown History ointment bisacodyl 10 mg rectal suppository 10 mg [place] DAILY PRN Constipation 10/13/23 10/13/23 Unknown History diltiazem HCl 90 mg tablet 90 mg PO QID 10/13/23 10/13/23 10/12/23 History 90 mg famotidine 20 mg tablet 20 mg PO DAILY@10/13/23 10/13/23 Unknown History folic acid 1 mg tablet 1 mg PO DAILY@10/13/23 10/13/23 10/12/23 History 1 mg furosemide 20 mg tablet 20 mg PO DAILY@ fluid overload 10/13/23 10/13/23 Unknown History guaifenesin 600 mg tablet, 600 mg PO BID@,10/13/23 10/13/23 Unknown History extended release 12 hr (Mucinex) heparin (porcine) 5,000 unit/mL 5,000 unit SUBCUT TID@06,14,22 10/13/23 10/13/23 Unknown History injection solution insulin glargine 100 unit/mL (3 30 unit SUBCUT BEDTIME 10/13/23 10/13/23 Unknown History mL) subcutaneous pen (Lantus Solostar U-100 Insulin) insulin lispro 100 unit/mL 15 unit SUBCUT TIDWM 10/13/23 10/13/23 Unknown History subcutaneous pen insulin lispro 100 unit/mL See Rx Instructions .Route .COMPLEX 10/13/23 10/13/23 Unknown History subcutaneous solution (Humalog U-100 Insulin) levetiracetam 500 mg tablet 500 mg PO BID@,10/13/23 10/13/23 Unknown History (Keppra) lidocaine 4 % topical cream 1 applic topical DAILY@10/13/23 10/13/23 Unknown History lisinopril 10 mg tablet 10 mg PO DAILY@10/13/23 10/13/23 Unknown History magnesium hydroxide 400 mg/5 mL 15 ml PO DAILY@07 Constipation 10/13/23 10/13/23 Unknown History oral suspension (Milk of Magnesia) magnesium hydroxide 400 mg/5 mL 30 ml PO DAILY PRN Constipation 10/13/23 10/13/23 Unknown History oral suspension (Milk of Magnesia) phenol 1.5 %-glycerin 33 % mucosal See Rx Instructions .Route .COMPLEX 10/13/23 10/13/23 Unknown History spray (Chloraseptic Max Sore Throat) polyethylene glycol 3350 17 gram 17 g PO DAILY PRN Constipation 10/13/23 10/13/23 Unknown History oral powder packet (Miralax) sennosides 8.8 mg/5 mL oral syrup 5 ml PO DAILY PRN Constipation 10/13/23 10/13/23 Unknown History sodium phosphates 19 gram-7 118 ml [place] DAILY PRN Constipation 10/13/23 10/13/23 Unknown History gram/118 mL enema (Fleet Enema) ubiquinone 1 cap PO DAILY@07 10/13/23 10/13/23 Unknown History Allergies Allergy/AdvReac Type Severity Reaction Status Date / Time No Known Allergies Allergy Verified 10/07/23 11:15 Current Medications Generic Name Dose Route Start Last Admin Trade Name Freq PRN Reason Stop Dose Admin Acetaminophen 650 mg 10/12/23 18:14 10/13/23 08:11 Acetaminophen 325 Mg Tablet PO 650 mg Q6H PRN Administration Mild/Mod Pain Or Temp >/= 101 Allopurinol 150 mg 10/13/23 09:00 10/14/23 09:06 Allopurinol 100 Mg Tablet PO 150 mg DAILY BEVERLY Administration Atorvastatin Calcium 80 mg 10/13/23 21:00 10/14/23 20:52 Atorvastatin 40 Mg Tablet PO 80 mg BEDTIME BEVERLY Administration Budesonide 0.5 mg 10/13/23 03:35 10/13/23 07:34 Budesonide 0.5 Mg/2 Ml Neb INHALATION 0.5 mg BID.RESPIRATORY PRN Administration Shortness Of Breath Calcitriol 0.25 mcg 10/13/23 06:00 10/15/23 05:11 Calcitriol 0.25 Mcg Capsule PO 0.25 mcg QAM BEVERLY Administration Cetirizine HCl 10 mg 10/13/23 09:00 10/14/23 09:05 Cetirizine 10 Mg Tablet PO 10 mg DAILY BEVERLY Administration Diltiazem HCl 90 mg 10/13/23 09:00 10/13/23 13:40 Diltiazem 30 Mg Tablet PO 90 mg QID BEVERLY Administration Docusate Sodium 200 mg 10/13/23 09:00 10/14/23 17:41 Docusate Sodium 100 Mg Capsule PO 200 mg BID BEVERLY Administration Ezetimibe 10 mg 10/13/23 09:00 10/14/23 09:05 Ezetimibe 10 Mg Tablet PO 10 mg DAILY BEVERLY Administration Famotidine 20 mg 10/13/23 09:00 10/14/23 09:06 Famotidine 20 Mg Tablet PO 20 mg DAILY BEVERLY Administration Folic Acid 1 mg 10/13/23 09:00 10/14/23 09:06 Folic Acid 1 Mg Tablet PO 1 mg DAILY BEVERLY Administration Furosemide 20 mg 10/13/23 08:00 10/13/23 08:12 Furosemide 20 Mg Tablet PO 20 mg DAILY@0800 BEVERLY Administration Gabapentin 600 mg 10/13/23 09:00 10/14/23 17:41 Gabapentin 300 Mg Capsule PO 600 mg BID BEVERLY Administration Guaifenesin 600 mg 10/13/23 09:00 10/14/23 17:41 Guaifenesin 600 Mg Tablet PO 600 mg BID BEVERLY Administration Levetiracetam 1,000 mg in 100 mls @ 400 mls/hr 10/12/23 21:20 10/14/23 21:15 Keppra IV Infused Q12H BEVERLY Infusion Ceftriaxone Sodium 1,000 mg/ 50 mls @ 100 mls/hr 10/12/23 23:45 10/15/23 04:16 Sodium Chloride IV Infused Q24H B[facility]LY Infusion Protocol Amiodarone HCl/Dextrose 360 mg in 200 mls @ 0 mls/hr 10/15/23 01:15 10/15/23 08:46 Nexterone IV 0.5 mg/min .Q0M BEVERLY 16.67 mls/hr Administration Protocol Per Protocol Insulin Glargine 24 unit 10/13/23 21:00 10/14/23 20:52 Insulin Glargine 100 Units/1 Ml SUBCUT 24 unit BEDTIME BEVERLY Administration Insulin Human Lispro 0 unit 10/13/23 08:00 10/14/23 20:52 Insulin Lispro 100 Unit/1 Ml SUBCUT 6 unit WM&BEDTIME BEVERLY Administration Protocol Insulin Human Lispro 10 unit 10/13/23 08:00 10/14/23 19:15 Insulin Lispro 100 Unit/1 Ml SUBCUT Not Given TIDWM [facility] Lisinopril 10 mg 10/13/23 09:00 10/14/23 09:06 Lisinopril 10 Mg Tablet PO 10 mg DAILY BEVERLY Administration Qvfdw-2-Itmo Ethyl Esters 1,000 mg 10/13/23 09:00 10/14/23 17:41 [place]-3 Fatty Acids 1,000 Mg Capsule PO 1,000 mg BID BEVERLY Administration Paroxetine HCl 40 mg 10/13/23 09:00 10/14/23 09:05 Paroxetine 20 Mg Tablet PO 40 mg DAILY BEVERLY Administration Tamsulosin HCl 0.4 mg 10/13/23 09:00 10/14/23 09:06 Tamsulosin 0.4 Mg Capsule PO 0.4 mg DAILY BEVERLY Administration PFSH Acute 2 PFSH: Medical History Chronic kidney disease CHF (congestive heart failure), NYHA class III Hyperthyroidism Thyroid nodule Goiter Acquired hammertoes of both feet PAD (peripheral artery disease) Type 2 diabetes mellitus Onychomycosis Right middle lobe pulmonary nodule NSTEMI (non-ST elevated myocardial infarction) Atrial flutter Atherosclerosis Depressive disorder Gout Hyperlipidemia Peripheral neuropathy Atrial fibrillation Chronic atrial fibrillation Essential hypertension Surgical History S/P hernia surgery History of cholecystectomy H/O knee surgery Hx of CABG Family History Father Myocardial infarct Mother Stroke Other Family history of premature coronary artery disease Social History Smoking and tobacco/nicotine status: former use of tobacco/nicotine Quit status (tobacco/nicotine): has quit using Year quit tobacco: 1971 Former quit date comment: 1ppd x 20 years Vitals/I&O/Wt Last Vital Signs Temp 98.6 F 10/15/23 09:00 Pulse 120 H 10/15/23 09:00 Resp 25 H 10/15/23 09:00 BP 140/109 10/15/23 09:00 Pulse Ox 98 10/15/23 09:00 O2 Del Method Nasal Cannula 10/15/23 01:30 O2 Flow Rate 6 10/15/23 01:30 10/14/23 10/15/2324 22:59 06:59 14:59 Intake Total 920 / 1640 100 / 1740 200 / 200 Output Total 1000 / 2000 1350 / 3350 750 / 750 Balance -80 / -360 -1250 / -1610 -550 / -550 Weight last 48 hrs Weight 243 lb Weight 244 lb Physical Exam 2 Const: COMMON NORMALS: no acute distress; negative for average body habitus (Obese) and negative for alert (Somnolent following Keppra administration) HENMT: COMMON NORMALS: normocephalic, atraumatic (Status post craniotomy), hearing grossly normal bilaterally and external ears normal HEAD & SCALP: n ormocephalic and atraumatic (Status post craniotomy) EXTERNAL EAR: Yes external ears normal Eye: COMMON NORMALS: EOMs intact bilaterally and conjunctivae normal C ONJUNCTIVA: Yes conjunctivae normal Neck/C-Spine: COMMON NORMALS: no lymphadenopathy, supple and No carotid bruits Chest: COMMONS NORMALS: normal palpation of entire chest wall; negative for normal inspection of the chest OTHER: Apparent attempted central line placement in the left subclavicular region with injection quiroz noted. Resp: COMMON NORMALS: normal respiratory effort and clear to auscultation bilaterally AUSCULTATION: clear to auscultation bilaterally Cardio: RATE: tachycardic RHYTHM: abnormal rhythm irregularly irregular OTHER: A-fib with tachycardia GI: COMMON NORMALS: Normal to inspection, nondistended, normoactive bowel sounds present, Soft to palpation and non-tender PALPATION: Yes Soft to palpation Extremity: COMMON NORMALS: no clubbing, cyanosis or edema Neuro: SENSORIUM/ORIENTATION: No alert (Somnolent following Keppra administration) Data 10/15/23 01:58 10/15/23 01:58 Micro: Microbiology 10/12/23 16:23 Urine Culture - Final Urine,Clean Catch A&P Assessment and plan (1) Sinus pause: Documented sinus pauses up to 10 seconds with history of syncopal episode resulting in intracranial trauma and subdural hematoma requiring craniotomy Currently has temporary pacemaker in place. Plan: Rationale for pacemaker implantation was carefully discussed with Mr. Baker. He appears to have good understanding of this as well as with the risk of this surgery. He is in agreement to proceed. We will tentatively plan for single lead pacemaker implantation this evening. He will be at increased risk for complications related to diabetes mellitus, need for temporary pacing, posttraumatic seizures, anemia, and history of coronary artery disease status post CABG Consult Attestations 2 Medical Necessity Statement: Longstanding atrial fibrillation with profound sinus pauses Coding Level of Care Code Acute Code for Chg Fwd Diagnoses Sinus pause I45.5
--- NOTE | 2023-10-15 10:54 | P.PN_ITS ---
Subjective 2 Subjective: Seen this morning. Patient doing well. Denies any pain, shortness of breath, palpitations at this time. Mental status similar to yesterday. Alert oriented x 3. No gross neurological deficits at this time noted. Overnight events noted. Patient had an episode of A-fib with RVR with chest pain despite being on amiodarone. Slow metoprolol push was given but not completed and patient encounter to 6-second sinus pause and subsequently went into asystole unresponsive. CODE BLUE was initiated. CPR for administered. Epinephrine x 2 was given. Subsequently patient alert awake following directions with ROSC, maintaining 6 to 7 L nasal cannula. Again started having pauses. Transcutaneous pacing was started and subsequently transvenous pacer placed by cardiology overnight. Central venous catheter placed as well. Vitals/I&O/Wt Last Vital Signs Temp 98.6 F 10/15/23 09:00 Pulse 115 H 10/15/23 09:55 Resp 18 10/15/23 09:55 BP 140/109 10/15/23 09:00 Pulse Ox 98 10/15/23 09:55 O2 Del Method Nasal Cannula 10/15/23 09:55 O2 Flow Rate 3 10/15/23 09:55 10/14/23 10/15/23 10/15/23 22:59 06:59 14:59 Intake Total 920 / 1640 100 / 1740 200 / 200 Output Total 1000 / 2000 1350 / 3350 750 / 750 Balance -80 / -360 -1250 / -1610 -550 / -550 Weight last 48 hrs Weight 110.223 kg Weight 110.677 kg Physical Exam 2 Narrative: General: Alert oriented x 3, answers questions appropriately. Was asleep when seen however woke up and talk to me. Does not appear overly lethargic to me. Head: craniotomy scar present on left side Cardiovascular: Irregularly irregular, tachycardic went to 130s. Left greater than right 1+ edema in lower extremities. Lungs: Breath sounds are slightly diminished at bases, no use of accessory muscles, no crackles or wheezes. Skin: No jaundice. No rashes. Abdomen: Normal bowel sounds, abdomen soft and nontender. Extremities: No cyanosis or clubbing. Neurological: Moves all 4 extremities. Data 10/15/23 01:58 10/15/23 01:58 Micro: Microbiology 10/12/23 16:23 Urine Culture - Final Urine,Clean Catch A&P Assessment and plan (1) Seizure: New onset seizure x 4-5 episodes prior to admission. Recent history of intracranial hemorrhage postcraniotomy. Neurology recommendations appreciated. Continue with Keppra 1 g IV every [address] head on admission negative for any acute abnormality. Check thyroid panel as recently TSH is 0.01 with mildly elevated free T4. Neurology on board. (2) SDH (subdural hematoma): Underwent surgery on 09/25/2023 Was discharged from acute care hospital on 10/11 Continue therapy Continue helmet, outpatient neurosurgery follow-up Will need replaced in postacute care when medically ready (3) Atrial fibrillation: Heart rate stable for now. Holding home dose of amiodarone and Cardizem at this time Not on anticoagulation given recent subdural hematoma. Telemetry. Sinus pause seen, 7-10 secs Consult cardiology. Sick sinus syndrome. Patient going for pacemaker today. Overnight did have episodes of asystole and GOVIND DA SILVA was called overhead. ROSC was achieved. Currently patient has a transvenous pacemaker in place. Consult CT surgery for placement of pacemaker. Tentative plan for 4 PM today. Qualifiers: Atrial fibrillation type: unspecified Qualified Code(s): I48.91 - Unspecified atrial fibrillation (4) Abnormal urinalysis: Urinalysis concerning for possible UTI. Leukoesterase 2+. Follow-up with urine culture. Continue with empiric ceftriaxone for now. (5) CHF (congestive heart failure), NYHA class III: Chronic heart failure with borderline ejection fraction of 45 to 50% Compensated on exam Continue with home medications. Continue lasix orally. Qualifiers: Congestive heart failure type: unspecified Qualified Code(s): I50.9 - Heart failure, unspecified (6) Essential hypertension: Goal blood pressure less than 140/90 mmHg. Current blood pressure is acceptable Continue with home medications. (7) Chronic kidney disease: Chronic kidney disease, appears to be around stage III A3 B Avoid nephrotoxins, renally dose medications Monitor BMP daily. Qualifiers: Chronic kidney disease stage: unspecified stage Qualified Code(s): N 18.9 - Chronic kidney disease, unspecified (8) Anemia: Suspect postop anemia following his prolonged hospitalization outside hospital No evidence of bleeding Continue to monitor hemoglobin daily. Check iron panel. Qualifiers: Anemia type: unspecified type Qualified Code(s): D64.9 - Anemia, unspecified (9) Sick sinus syndrome: (10) Cardiac asystole: (11) Signs of return of spontaneous circulation: (12) Temporary transvenous cardiac pacemaker present: (13) Sinus pause: Plan DVT prophylaxis: SCD CODE STATUS: Full code NPO except medications. Speech therapy and evaluation and advance diet accordingly. 10/15/2023 -Continue IV amiodarone at this time for atrial fibrillation with RVR ? Transvenous pacemaker in place. Cardiology on board ? Patient going for pacemaker today around 4 [address]. ? CT head to be completed after pacemaker in place. ? Has been seizure-free. Will check Keppra levels today. Neurology on board ? Continue to monitor in ICU on telemetry overnight. ? Continue to hold Cardizem and metoprolol at this time. ? Creatinine improved 1.6 today. Full code Attestations 2 Medical Necessity Statement*: Patient requires ICU level of care. Transvenous pacemaker in place. Currently on IV amiodarone. Will be going for a pacemaker placement today. Diagnoses Seizure R56.9 SDH (subdural hematoma) S06.5XAA Atrial fibrillation, unspecified type I48.91 Atrial fibrillation type: unspecified Abnormal urinalysis R82.90 Congestive heart failure, NYHA class 3, unspecified congestive heart failure type I50.9 Congestive heart failure type: unspecified Essential hypertension I10 Chronic kidney disease, unspecified CKD stage N18.9 Chronic kidney disease stage: unspecified stage Anemia, unspecified type D64.9 Anemia type: unspecified type Sick sinus syndrome I49.5 Cardiac asystole I46.9 Signs of return of spontaneous circulation Temporary transvenous cardiac pacemaker present Z95.0 Sinus pause I45.5
[2023-10-15] MEDS: levETIRAcetam 1,000 MG/100 ML PREMIX 400 MG IV ×2 (11:04→20:52)
[2023-10-15 12:03] LABS: Glucose Point of Care 116 mg/dL (70-110)
[2023-10-15] MEDS: mupirocin oint 22 gm 1 APPLIC NOSTRIL-B (13:15)
--- NOTE | 2023-10-15 15:39 | ANES.PREANE2 ---
Pre-Anesthetic Assessment Height/Weight: Height 1.75 m Weight 110.223 kg Temp Pulse Resp BP Pulse Ox O2 Del Method O2 Flow Rate 98.6 F 84 10 L 114/79 89 L Nasal Cannula 3 10/15/23 09:00 10/15/23 14:00 10/15/23 12:45 10/15/23 12:45 10/15/23 12:45 10/15/23 09:55 10/15/23 09:55 Preop Diagnosis: Sick sinus syndrome/asystole Operation Date: 10/15/23 00:00 Proposed Procedures p Temporary Pacemaker Placement(Not Applicable) - Royer Dennison M.D Operation Date: 10/15/23 16:10 Proposed Procedures p Pacemaker Insertion(Not Applicable) - Michael Connell MD Familial anesthetic complications: none Was Beta Candido taken within 24 hours: N/A Was Clonidine taken within 24 hours: N/A Social No alcohol and No tobacco Exam alert, oriented x 3 and regular rate & rhythm (paced) Airway Submandibular: within normal limits Cervical ROM: within normal limits Mallampati: Class II Dentition: chipped Pulmonary Chronic Obstructive Pulmonary Disease CV/HEM Atrial Fibrillation, Arrythmia (temp pacemaker), Coronary Artery Disease, Congestive Heart Failure and Myocardial Infarction SSS CONCLUSIONS Normal left ventricular size, systolic function and wall thickness, with no regional wall motion abnormalities. Grade II/IV diastolic dysfunction, moderately elevated filling pressures. Left ventricular ejection fraction is estimated at 60 %. Thickened mitral valve. Structurally normal mitral valve. Moderate mitral valve regurgitation. The previous study was done less than 4 months ago. The mild global hypokinesis seen on that study is not evident today. Otherwise, no significant change. Dr. Rod Cameron MD (Electronically Signed) Final Date: 14 October 2023 Metabolic Diabetes Mellitus, Hyperlipidemia and Morbid Obesity Neuropsych Anxiety, Depression and Neuropathy Recent intracranial bleed with left temporal craniectomy, right side weak Anesthetic Plan ASA status: 4 Anesthesia: Choice Medications/Allergies Home Medications Medication Instructions Recorded Confirmed Last Taken Type ezetimibe 10 mg tablet 10 mg PO DAILY@10/14/19 10/13/23 07/08/23 History allopurinol 100 mg tablet 150 mg PO DAILY@07/20/22 10/13/23 07/08/23 History cetirizine 10 mg tablet (Zyrtec) 10 mg PO DAILY@07/20/22 10/13/23 07/08/23 History cholecalciferol (vitamin D3) 25 25 mcg PO DAILY@07/20/22 10/13/23 10/12/23 History mcg (1,000 unit) tablet (Vitamin 25 mcg D3) docusate sodium 100 mg capsule 200 mg PO BID PRN Constipation 07/20/22 10/13/23 07/08/23 History (Colace) gabapentin 600 mg tablet 600 mg PO BID@07/20/22 10/13/23 07/08/23 History paroxetine HCl 40 mg tablet (Paxil) 40 mg PO DAILY@07/20/22 10/13/23 07/08/23 History tamsulosin 0.4 mg capsule (Flomax) 0.4 mg PO DAILY@07/20/22 10/13/23 07/07/23 History calcitriol 0.25 mcg capsule 0.25 mcg PO DAILY@10/10/22 10/13/23 07/08/23 History omega-3 fatty acids 1,000 mg 1,000 mg PO BID@03/07/23 10/13/23 07/08/23 History capsule rosuvastatin 40 mg tablet 40 mg PO BEDTIME #30 tabs 06/28/23 10/13/23 07/07/23 Rx budesonide 0.5 mg/2 mL suspension 0.5 mg inhalation BID.RESPIRATORY 07/08/23 10/13/23 Unknown History for nebulization PRN Shortness Of Breath acetaminophen 325 mg tablet 650 mg PO QID 10/13/23 10/13/23 Unknown History albuterol sulfate 2.5 mg/3 mL 2.5 mg inhalation Q6H PRN 10/13/23 10/13/23 Unknown History (0.083 %) solution for nebulization shortness of breath or wheezing amiodarone 200 mg tablet 200 mg PO BID@10/13/23 10/13/23 Unknown History bacitracin-polymyxin B topical See Rx Instructions .Route .COMPLEX 10/13/23 10/13/23 Unknown History ointment bisacodyl 10 mg rectal suppository 10 mg ND DAILY PRN Constipation 10/13/23 10/13/23 Unknown History diltiazem HCl 90 mg tablet 90 mg PO QID 10/13/23 10/13/23 10/12/23 History 90 mg famotidine 20 mg tablet 20 mg PO DAILY@10/13/23 10/13/23 Unknown History folic acid 1 mg tablet 1 mg PO DAILY@10/13/23 10/13/23 10/12/23 History 1 mg furosemide 20 mg tablet 20 mg PO DAILY@07 fluid overload 10/13/23 10/13/23 Unknown History guaifenesin 600 mg tablet, 600 mg PO BID@,10/13/23 10/13/23 Unknown History extended release 12 hr (Mucinex) heparin (porcine) 5,000 unit/mL 5,000 unit SUBCUT TID@06,,10/13/23 10/13/23 Unknown History injection solution insulin glargine 100 unit/mL (3 30 unit SUBCUT BEDTIME 10/13/23 10/13/23 Unknown History mL) subcutaneous pen (Lantus Solostar U-100 Insulin) insulin lispro 100 unit/mL 15 unit SUBCUT TIDWM 10/13/23 10/13/23 Unknown History subcutaneous pen insulin lispro 100 unit/mL See Rx Instructions .Route .COMPLEX 10/13/23 10/13/23 Unknown History subcutaneous solution (Humalog U-100 Insulin) levetiracetam 500 mg tablet 500 mg PO BID@,10/13/23 10/13/23 Unknown History (Keppra) lidocaine 4 % topical cream 1 applic topical DAILY@10/13/23 10/13/23 Unknown History lisinopril 10 mg tablet 10 mg PO DAILY@10/13/23 10/13/23 Unknown History magnesium hydroxide 400 mg/5 mL 15 ml PO DAILY@07 Constipation 10/13/23 10/13/23 Unknown History oral suspension (Milk of Magnesia) magnesium hydroxide 400 mg/5 mL 30 ml PO DAILY PRN Constipation 10/13/23 10/13/23 Unknown History oral suspension (Milk of Magnesia) phenol 1.5 %-glycerin 33 % mucosal See Rx Instructions .Route .COMPLEX 10/13/23 10/13/23 Unknown History spray (Chloraseptic Max Sore Throat) polyethylene glycol 3350 17 gram 17 g PO DAILY PRN Constipation 10/13/23 10/13/23 Unknown History oral powder packet (Miralax) sennosides 8.8 mg/5 mL oral syrup 5 ml PO DAILY PRN Constipation 10/13/23 10/13/23 Unknown History sodium phosphates 19 gram-7 118 ml ND DAILY PRN Constipation 10/13/23 10/13/23 Unknown History gram/118 mL enema (Fleet Enema) ubiquinone 1 cap PO DAILY@07 10/13/23 10/13/23 Unknown History Allergies Allergy/AdvReac Type Severity Reaction Status Date / Time No Known Allergies Allergy Verified 10/07/23 11:15 Current Medications Generic Name Dose Route Start Last Admin Trade Name Freq PRN Reason Stop Dose Admin Acetaminophen 650 mg 10/12/23 18:14 10/13/23 08:11 Acetaminophen 325 Mg Tablet PO 650 mg Q6H PRN Administration Mild/Mod Pain Or Temp >/= 101 Allopurinol 150 mg 10/13/23 09:00 10/15/23 11:17 Allopurinol 100 Mg Tablet PO Not Given DAILY [facility] Amiodarone HCl 200 mg 10/14/23 18:06 10/15/23 10:57 Amiodarone 200 Mg Tablet PO Not Given BID [facility] Atorvastatin Calcium 80 mg 10/13/23 21:00 10/14/23 20:52 Atorvastatin 40 Mg Tablet PO 80 mg BEDTIME [facility] Administration Budesonide 0.5 mg 10/13/23 03:35 10/13/23 07:34 Budesonide 0.5 Mg/2 Ml Neb INHALATION 0.5 mg BID.RESPIRATORY PRN Administration Shortness Of Breath Calcitriol 0.25 mcg 10/13/23 06:00 10/15/23 05:11 Calcitriol 0.25 Mcg Capsule PO 0.25 mcg QAM [place] Administration Cetirizine HCl 10 mg 10/13/23 09:00 10/15/23 11:17 Cetirizine 10 Mg Tablet PO Not Given DAILY [facility] Chlorhexidine Gluconate 1 applic 10/15/23 09:00 10/15/23 11:18 Chlorhexidine Gluconate 4% Btl 118 Ml TOPICAL Not Given DAILY [facility] Diltiazem HCl 90 mg 10/13/23 09:00 10/13/23 13:40 Diltiazem 30 Mg Tablet PO 90 mg QID [place] Administration Docusate Sodium 200 mg 10/13/23 09:00 10/15/23 11:29 Docusate Sodium 100 Mg Capsule PO Not Given BID [facility] Ezetimibe 10 mg 10/13/23 09:00 10/15/23 11:29 Ezetimibe 10 Mg Tablet PO Not Given DAILY [facility] Famotidine 20 mg 10/13/23 09:00 10/15/23 11:29 Famotidine 20 Mg Tablet PO Not Given DAILY [facility] Folic Acid 1 mg 10/13/23 09:00 10/15/23 11:30 Folic Acid 1 Mg Tablet PO Not Given DAILY [facility] Furosemide 20 mg 10/13/23 08:00 10/13/23 08:12 Furosemide 20 Mg Tablet PO 20 mg DAILY@0800 [facility] Administration Gabapentin 600 mg 10/13/23 09:00 10/15/23 11:30 Gabapentin 300 Mg Capsule PO Not Given BID [facility] Guaifenesin 600 mg 10/13/23 09:00 10/15/23 11:30 Guaifenesin 600 Mg Tablet PO Not Given BID [facility] Levetiracetam 1,000 mg in 100 mls @ 400 mls/hr 10/12/23 21:20 10/15/23 11:20 Keppra IV Infused Q12H [facility] Infusion Ceftriaxone Sodium 1,000 mg/ 50 mls @ 100 mls/hr 10/12/23 23:45 10/15/23 04:16 Sodium Chloride IV Infused Q24H [facility] Infusion Protocol Amiodarone HCl/Dextrose 360 mg in 200 mls @ 0 mls/hr 10/15/23 01:15 10/15/23 08:46 Nexterone IV 0.5 mg/min .Q0M [facility] 16.67 mls/hr Administration Protocol Per Protocol Insulin Glargine 24 unit 10/13/23 21:00 10/14/23 20:52 Insulin Glargine 100 Units/1 Ml SUBCUT 24 unit BEDTIME [facility] Administration Insulin Human Lispro 0 unit 10/13/23 08:00 10/15/23 11:17 Insulin Lispro 100 Unit/1 Ml SUBCUT Not Given WM&BEDTIME [facility] Protocol Insulin Human Lispro 10 unit 10/13/23 08:00 10/15/23 11:32 Insulin Lispro 100 Unit/1 Ml SUBCUT Not Given TIDWM [facility] Lisinopril 10 mg 10/13/23 09:00 10/15/23 11:30 Lisinopril 10 Mg Tablet PO Not Given DAILY [facility] Vpydy-3-Kvgi Ethyl Esters 1,000 mg 10/13/23 09:00 10/15/23 11:31 [place]-3 Fatty Acids 1,000 Mg Capsule PO Not Given BID [facility] Paroxetine HCl 40 mg 10/13/23 09:00 10/15/23 11:31 Paroxetine 20 Mg Tablet PO Not Given DAILY [facility] Tamsulosin HCl 0.4 mg 10/13/23 09:00 10/15/23 11:31 Tamsulosin 0.4 Mg Capsule PO Not Given DAILY [facility] Anesthesia Medical History Chronic kidney disease CHF (congestive heart failure), NYHA class III Hyperthyroidism Thyroid nodule Goiter Acquired hammertoes of both feet PAD (peripheral artery disease) Type 2 diabetes mellitus Onychomycosis Right middle lobe pulmonary nodule NSTEMI (non-ST elevated myocardial infarction) Atrial flutter Atherosclerosis Depressive disorder Gout Hyperlipidemia Peripheral neuropathy Atrial fibrillation Chronic atrial fibrillation Essential hypertension Surgical History S/P hernia surgery History of cholecystectomy H/O knee surgery Hx of CABG Family History Father Myocardial infarct Mother Stroke Other Family history of premature coronary artery disease Social History Smoking and tobacco/nicotine status: former use of tobacco/nicotine Quit status (tobacco/nicotine): has quit using Year quit tobacco: 1971 Former quit date comment: 1ppd x 20 years Data Anesthesia 10/15/23 01:58 10/15/23 01:58 Short CBC 10/13/23 10/14/23 10/15/23 Range/Units 17:24 03:20 01:58 WBC 7.67 8.12 10.33 (3.29-11.43) 10^3/uL Hgb 8.90 L 8.50 L 8.50 L (11.27-16.99) g/dL Hct 28.7 L 27.2 L 27.0 L (37-53) % MCV 93.8 93.8 94.4 (82-101) fl Plt Count 239 259 267 (157-399) 10^3/cmm Neut % (Auto) 73.7 72.8 79.7 % Neut # (Auto) 5.66 5.90 8.23 H (1.8-7.7) 10^3/uL BMP 10/13/23 10/14/23 10/15/23 17:24 03:20 01:58 Sodium Cancelled 134 L 135 L Potassium Cancelled 4.9 5.0 Chloride Cancelled 100 100 Carbon Dioxide Cancelled 27 25 BUN Cancelled 38 H 32 H Creatinine Cancelled 1.7 H 1.6 H Glucose Cancelled 122 H 114 Calcium Cancelled 8.1 L 8.0 L Cardiac Enzymes 10/13/23 10/13/23 10/13/23 Range/Units 17:24 19:21 22:49 Troponin T Baseline 110 H* (0-15) ng/L Troponin T 120 Minute 104.7 H (0-15) ng/L Delta Troponin T -5.3 L (0-10) ABS# Troponin T Hi Sens 6Hr 112.3 H (0-15) ng/L Troponin T Hi Sens 6Hr Delta 2.3 (0-12) ng/L Liver Function 10/13/23 10/14/23 Range/Units 17:24 03:20 Total Bilirubin Cancelled 0.3 AST Cancelled 22 ALT Cancelled 29 Alkaline Phosphatase Cancelled 178 H Albumin Cancelled 3.1 L Blood Bank 10/15/23 11:20 Blood Type O Positive Rho(D) Type Rh positive Antibody Screen Negative Cardiac Studies: Echocardiogram 10/13/23 Sestamibi Stress Test (Cardiology) 08/01/22
[2023-10-15] MEDS: ceFAZolin 2,000 MG in sodium chloride 0.9% (plus) 50 ML 100 MG IV (16:47)
--- NOTE | 2023-10-15 17:05 | SC_ITS ---
WS: [id number] C-ARM RADIOGRAPHS CHEST; 2 IMAGES HISTORY: SURGERY COMPARISON: None available. Intraoperative imaging during cardiac pacer placement. Very limited detail and imaging submitted for the pacer insertion. IMPRESSION: Intraoperative imaging during cardiac pacer insertion.
[2023-10-15] MEDS: ceFAZolin 1,000 mg SDV 1000 MG IRRIGATION (17:47)
[2023-10-15] MEDS: lidocaine 1% INJ 10 mL (per mL) 20 ML XX (17:49)
--- NOTE | 2023-10-15 18:43 | P.PN_ITS ---
Subjective 2 Subjective: Patient had asystole last night. Had temporary pacemaker placed secondary to sick sinus syndrome. Today had permanent pacemaker placement. Vitals/I&O/Wt Last Vital Signs Temp 98.6 F 10/15/23 09:00 Pulse 82 10/15/23 16:15 Resp 18 10/15/23 16:30 BP 138/76 10/15/23 16:30 Pulse Ox 97 10/15/23 16:30 O2 Del Method Nasal Cannula 10/15/23 09:55 O2 Flow Rate 3 10/15/23 09:55 10/15/23 10/15/23 10/15/23 06:59 14:59 22:59 Intake Total 100 / 1740 300 / 300 100 / 400 Output Total 1350 / 3350 750 / 750 2100 / 2850 Balance -1250 / -1610 -450 / -450 -2000 / -2450 Weight last 48 hrs Weight 243 lb Weight 244 lb Physical Exam 2 Narrative: GENERAL: Patient is alert, awake and oriented x3. [] NECK: No jugular vein distension. [] HEENT: No cyanosis. No icterus. No pallor. [] HEART: Regular S1 and S2. No murmur, rub or gallop. [] LUNGS: Clear to auscultate bilaterally. [] CENTRAL NERVOUS SYSTEM: Grossly nonfocal. [] EXTREMITIES: Lower extremities with 1+ edema bilaterally. Data 10/16/23 04:44 10/16/23 04:44 A&P Assessment and plan (1) Atrial fibrillation: Qualifiers: Atrial fibrillation type: unspecified Qualified Code(s): I48.91 - Unspecified atrial fibrillation (2) Essential hypertension: (3) CHF (congestive heart failure), NYHA class III: Qualifiers: Congestive heart failure type: unspecified Qualified Code(s): I50.9 - Heart failure, unspecified (4) Seizure: (5) SDH (subdural hematoma): (6) Sinus pause: Plan Patient is s/p permanent pacemaker now. Stable. Continue amiodarone. Heart rate is controlled.Will resume cardizem. Thank you for involving us with care of this patient. Will continue to follow. Please call with questions. Attestations 2 Medical Necessity Statement*: Care expected to cross 2 midnights. Coding Level of Care Code Acute Code for [facility] Diagnoses Atrial fibrillation, unspecified type I48.91 Atrial fibrillation type: unspecified Essential hypertension I10 Congestive heart failure, NYHA class 3, unspecified congestive heart failure type I50.9 Congestive heart failure type: unspecified Seizure R56.9 SDH (subdural hematoma) S06.5XAA Sinus pause I45.5
--- NOTE | 2023-10-15 18:45 | PM.OP ---
Operative Report Date of procedure: October 15, 2023 Pre-op diagnosis: Atrial fibrillation this with prolonged sinus pauses Post-op diagnosis: same Procedure done: Single-lead pacemaker and lead implantation Implants: Medtronic pacemaker Medtronic right ventricular lead Pathology: none sent Surgeon: Michael Connell MD Anesthesia: MAC and Local Complications: None Condition: stable Disposition: ICU Brief History: Mr. Baker is a 73-year-old gentleman with atrial fibrillation and profound sinus pauses up to 10 seconds who suffered several syncopal episodes resulting in a traumatic head injury and subdural hematoma requiring craniotomy. During his early convalescence developed sinus pauses at an outside facility requiring temporary pacing. He separately presents here again with substantial sinus pauses up to 10 seconds requiring placement of a temporary pacer. Dr. Dennison requested permanent pacing. Details and risk the procedure were carefully discussed with patient and family. Proper consents were signed. Procedure: Procedure: Mr. Bakerwas taken to the OR suite and placed in the supine position over a shoulder roll. He received conscious sedation with continuous anesthesia monitoring by. His entire chest was sterilely prepped and draped. Appropriate timeout was completed and confirmed all operative members present. 1% lidocaine was infiltrated in the left subclavicular region. While in Trendelenburg position, utilizing modified seldinger technique, a guidewire was placed in the left subclavian vein. This was confirmed in position by fluoroscopy. Next, after infiltration with lidocaine, a subcutaneous pocket was created beginning from the exit point of the guidewire and extending laterally and inferiorly. Cautery was utilized to create the pocket just above the pectoralis musculature. Hemostasis was confirmed. An antibiotic-soaked sponge was placed in the wound. A dilator and tear-away sheath was placed over the guidewire and advanced under fluoroscopy. Guidewire and dilator were removed. Next using a combination of curved and straight stylettes, the right ventricular lead was placed in position by fluoroscopy. The distal screw was extended. Interrogation was then performed confirming appropriate parameters. The tear-away sheath was then removed and the ventricular lead was sewn to the floor of the subcutaneous pocket. Pacing generator was brought into the field, and after confirmation of hemostasis in the subcutaneous pocket, the lead was connected to the generator with appropriate capture. The entire system was interrogated by fluoroscopy. Lead and generator were secured in the pocket. Sponge and needle count was correct. The wound was then closed in 2 layers of 3-0 Vicryl suture. Skin was reapproximated in a subcuticular manner with 4-0 Monocryl suture. A pressure dressing was applied. The left arm was placed in a sling. The patient had equal breath sounds bilaterally. He was then transferred to the ICU, where chest x-ray is currently pending. I did teen counselor with the family at the completion of the procedure. Following are the specifics of this system: Right ventricular lead is 58 cm and model [id number]. Serial number [id number] Ventricular lead had sensing of 5.4 mV with an impedance of 785 ohms. Threshold was 0.9 V Pacing mode is set to VVI with a lower rate of 60 Concept3Dtronic generator: Model # [id number] Serial #[id number]
[2023-10-15 19:07] LABS: Glucose Point of Care 126 mg/dL (70-110)
[2023-10-15] MEDS: ondansetron 2 mg/ML SDV 2 mL 4 MG IVP (19:26)
--- NOTE | 2023-10-15 19:44 | XRR_ITS ---
PROCEDURE INFORMATION: Exam: XR Chest Exam date and time: 10/15/2023 7:58 PM Age: 73 years old Clinical indication: Device placement; Cardiac pacemaker placement or adjustment; Prior surgery; Surgery date: Post-operative (0-2 days); Surgery type: Pacer; Additional info: S/P pacemaker implantation TECHNIQUE: Imaging protocol: Radiologic exam of the chest. Views: 1 view. COMPARISON: CR (CHEST, ) 10/12/2023 5:17 PM FINDINGS: Tubes, catheters and devices: Left-sided pacemaker. Lungs: Patchy bilateral largely left lower lobe atelectasis versus minimal infiltrate. Pleural spaces: Trace bilateral pleural effusions. Heart/Mediastinum: Unremarkable. No cardiomegaly. Bones/joints: Sternotomy wires. XR/XR chest 1V portable [id number] IMPRESSION: 1. Trace bilateral pleural effusions. 2. Left-sided pacemaker. 3. Sternotomy wires. 4. Patchy bilateral largely left lower lobe atelectasis versus minimal infiltrate.
--- NOTE | 2023-10-15 20:56 | P.ANESPOST_ITS ---
Inpatient post-anesthesia follow up: Airway intact: Yes Vital signs: Temperature 97.1 F Pulse Rate 75 Respiratory Rate 9 Blood Pressure [Le ft Arm] 125/87 Blood Pressure 145/74 Pulse Oximetry 97 Oxygen Delivery Me thod Nasal Cannula Oxygen Flow Rate 3 Fraction of Inspir ed Oxygen Hydration adequate: Yes Nausea and vomiting: No Pain level: 1 Men eber status: Baseline
[2023-10-15] MEDS: amiodarone 200 mg Tablet PO (21:14)
[2023-10-15] MEDS: gabapentin 300 mg Capsule 600 MG PO (21:14)
[2023-10-15] MEDS: guaiFENesin 600 mg Tablet PO (21:14)
[2023-10-15] MEDS: docusate sodium 100 mg Capsule 200 MG PO (21:14)
[2023-10-15] MEDS: insulin glargine 100 units/1 mL 24 UNIT SUBCUT (21:15)
[2023-10-15] MEDS: omega-3 fatty acids 1,000 mg Capsule 1000 MG PO (21:15)
[2023-10-15] MEDS: atorvastatin 40 mg Tablet 80 MG PO (21:15)
--- NOTE | 2023-10-15 23:18 | ECG_ITS ---
[facility] Test Date: 2023-10-14 Pat Name: Jonathan Baker Department: Room: ICU10 Gender: Male Spiritual Advisor: : 1950 Requested By: Royer Dennison Order Number: [id number] Jean MD: Royer Dennison M.D. Measurements Intervals [place] Rate: 66 P: 0 [place]: 0 QRS: -11 QRSD: 128 T: 75 QT: 408 QTc: 428 Interpretive Statements ATRIAL FLUTTER WITH ABERRANT CONDUCTION OR VENTRICULAR PREMATURE COMPLEXES RIGHT BUNDLE BRANCH BLOCK [120+ ms QRS DURATION, UPRIGHT V1, 40+ ms S IN I/aVL/V4/V5/V6] Compared to ECG 10/14/2023 00:13:23 Aberrant conduction of supraventricular beat(s) now present Sinus rhythm no longer present First degree AV block no longer present Electronically Signed On 10-15-2023 16:31:19 TELECOMMUNICATIONS PROFESSIONAL by Royer Dennison M.D. [id number]
[2023-10-16] VITALS (95 sets, daily range): BP systolic 99–170; BP diastolic 55–94; PULSE 73–132; RESP 1–25; TEMP 36.6–37.2; O2SAT 89–98
[2023-10-16] MEDS: cefTRIAXone 1,000 MG in sodium chloride 0.9% (plus) 50 ML 100 MG IV (00:31)
[2023-10-16 04:57] LABS: Basophils % 0.5 %; Eosinophils # 0.3 10^3/uL (0.0-0.8); Eosinophils % 3.3 %; Hematocrit 28.4 % (37-53); Lymphocytes # 0.9 10^3/uL (0.8-4.8); Lymphocytes % 11.3 %; Mean Corpuscular Hemoglobin 30.2 pg (27-33); Mean Corpuscular Volume 97.6 fl (82-101); Mean Platelet Volume 10.2 fL (7.4-10.4); Monocytes # 0.9 10^3/uL (0.2-0.9); Monocytes % 11.3 %; Neutrophils # 5.71 10^3/uL (1.8-7.7); Nucleated Red Blood Cells % 0 %; Platelet Count 263 10^3/cmm (157-399); Red Blood Count 2.91 10^6/uL (3.85-5.65); Red Cell Distribution Width 16.3 % (12.1-15.1); White Blood Count 7.82 10^3/uL (3.29-11.43)
[2023-10-16 05:20] LABS: Alanine Aminotransferase 34 U/L (0-41); Albumin Level 2.7 g/dL (3.5-5.2); Alkaline Phosphatase 171 U/L (40-130); Anion Gap 16.1 (5-19); Aspartate Amino Transferase 34 U/L (0-40); Blood Urea Nitrogen 25 mg/dL (8-23); Calcium 8.2 mg/dL (8.5-10.5); Carbon Dioxide 23 mmol/L (22-29); Chloride 104 mmol/L (98-107); Globulin 3.2 g/dL (1.3-4.6); Glucose 111 mg/dL (65-115); Magnesium 1.6 mg/dL (1.7-2.3); Osmolality Calculated 291 mOsm/kg (285-295); Potassium 5.1 mmol/L (3.5-5.1); Sodium 138 mmol/L (136-145); Total Bilirubin 0.2 mg/dL (0.15-1.2); Total Protein 5.9 g/dL (6.6-8.7)
[2023-10-16] MEDS: calcitriol 0.25 mcg Capsule PO (05:44)
[2023-10-16 07:45] LABS: Glucose Point of Care 108 mg/dL (70-110)
[2023-10-16] MEDS: gabapentin 300 mg Capsule 600 MG PO ×2 (08:46→17:52)
[2023-10-16] MEDS: guaiFENesin 600 mg Tablet PO ×2 (08:46→17:52)
[2023-10-16] MEDS: amiodarone 200 mg Tablet PO ×2 (08:46→17:51)
[2023-10-16] MEDS: ezetimibe 10 mg Tablet PO (08:46)
[2023-10-16] MEDS: famotidine 20 mg Tablet PO (08:46)
[2023-10-16] MEDS: allopurinol 100 mg Tablet 150 MG PO (08:46)
[2023-10-16] MEDS: tamsulosin 0.4 mg Capsule PO (08:46)
[2023-10-16] MEDS: cetirizine 10 mg Tablet PO (08:46)
[2023-10-16] MEDS: lisinopril 10 mg Tablet PO (08:46)
[2023-10-16] MEDS: levETIRAcetam 1,000 MG/100 ML PREMIX 400 MG IV (08:47)
[2023-10-16] MEDS: omega-3 fatty acids 1,000 mg Capsule 1000 MG PO ×2 (08:47→17:52)
[2023-10-16] MEDS: PARoxetine 20 mg Tablet 40 MG PO (08:47)
[2023-10-16] MEDS: folic acid 1 mg Tablet PO (08:47)
[2023-10-16] MEDS: docusate sodium 100 mg Capsule 200 MG PO ×2 (08:47→17:52)
[2023-10-16] MEDS: ondansetron 2 mg/ML SDV 2 mL 4 MG IVP ×2 (09:11→20:22)
[2023-10-16] MEDS: chlorhexidine gluconate 4% Btl 118 mL 1 APPLIC TOPICAL (09:13)
[2023-10-16] MEDS: dilTIAZem 30 mg Tablet PO ×2 (09:14→15:33)
--- NOTE | 2023-10-16 10:20 | CT_ITS ---
WS: [id number] CT HEAD NONCONTRAST HISTORY: mentation changes, vometing TECHNIQUE: Contiguous axial imaging performed through the brain in 2.5 mm imaging. Bone and soft tiss ue windows. Sagittal and coronal reformats reviewed. All CT scans at [facility] use at least one of these dose optimization techniques: automated exposure control; mA and/or kV adjustment per pa tient size (includes targeted exams where dose is matched to clinical indication); or iterative recon struction. DLP: 2321.70 mGy.cm COMPARISON: 10/12/2023 Status post evacuation of an acute LEFT subdural hematoma described on 09/25/2023 over the LEFT fronta l lobe. No acute blood products are identified today. There is residual chronic LEFT subdural compone nt similar to the prior study. No midline shift. No significant mass effect. There is mild expansion of the cerebrum through the craniotomy defect as expected. There is mild effacement of the sulci in t he LEFT cerebrum which is probably residual from the prior acute subdural hematoma. Overall significa nt improvement since 09/25/2023. Ventricles: Normal size with no hydrocephalus. Paranasal sinuses: Near complete opacification of the LEFT maxillary sinus with inspissated material. Mastoid air cells: Fluid in the LEFT mastoid air cells. Similar to the prior study. Calvarium and scalp: Patient has a large frontal craniotomy from the decompression surgery. IMPRESSION: 1. Status post evacuation of acute LEFT subdural hematoma described on 09/25/2023. 2. No new acute blood products. Decrease in the subdural hematoma with a more chronic component of t he subdural hematoma remaining on the LEFT. 3. Less mass effect upon the midline structures. There is still a small amount of cerebral edema but improving. 4. Large LEFT frontal craniotomy is unremarkable.
[2023-10-16] MEDS: metoclopramide 5 mg/mL SDV 2 mL 10 MG IVP (10:39)
[2023-10-16] MEDS: promethazine 25 mg/mL SDV 1 mL 12.5 MG IM (11:13)
--- NOTE | 2023-10-16 11:14 | XR_ITS ---
WS: [id number] KUB, AP view, 10/16/2023 Clinical Data: nausea/vomitting Comparison: None. Findings: No abnormal intraabdominal masses or calcifications are seen. There is no dilatated small bowel or ev idence of obstruction. There is air in the stomach, small bowel and colon. There is a vena caval filter in the region of the kidneys. There are right upper quadrant clips from a cholecystectomy. There are vascular calcificati ons. Impression: Moderate generalized ileus.
--- NOTE | 2023-10-16 11:25 | PC.NURSE ---
Dr. Cm notified via telephone patient remains nauseous, vomiting, and dizziness despite medications already given. Orders received for troponin check, IM phenergan and 500cc NS bolus. See MAR for administration.
[2023-10-16] MEDS: LORazepam 2 mg/mL INJ 10 mL MDV 0.5 MG IVP (11:42)
[2023-10-16 11:57] LABS: Troponin T (5th) Once 113 ng/L (0-15)
[2023-10-16 11:59] LABS: Glucose Point of Care 114 mg/dL (70-110)
--- NOTE | 2023-10-16 11:59 | ECG_ITS ---
[facility] Test Date: 2023-10-16 Pat Name: Jonathan Baker Department: Room: ICU10 Gender: Male Chemistry Research Assistant: : 1950 Requested By: Wendie Cm Order Number: [id number] Jean MD: Royer Dennison M.D. Measurements Intervals [place] Rate: 87 P: 91 [place]: 259 QRS: 72 QRSD: 138 T: 40 QT: 409 QTc: 494 Interpretive Statements SINUS RHYTHM WITH FIRST DEGREE AV BLOCK RIGHT BUNDLE BRANCH BLOCK [120+ ms QRS DURATION, UPRIGHT V1, 40+ ms S IN I/aVL/V4/V5/V6] Compared to ECG 10/14/2023 23:18:37 First degree AV block now present Atrial flutter no longer present Aberrant conduction of supraventricular beat(s) no longer present Electronically Signed On 10-16-2023 15:45:34 STUDENT DRIVING INSTRUCTOR by Royer Dennison M.D. [id number]
[2023-10-16] MEDS: sodium chloride 0.9% 500 ML 999 ML IV (12:26)
[2023-10-16 12:33] LABS: Glucose Point of Care 165 mg/dL (70-110)
--- NOTE | 2023-10-16 12:57 | P.PN_ITS ---
Subjective 2 Subjective: Seen this morning. Patient has been having nausea since yesterday and has been having vomiting since this morning. Zofran and Reglan have already been tried and he is still nauseous. Daughter is at bedside. Vitals/I&O/Wt Last Vital Signs Temp 98.9 F 10/16/23 07:00 Pulse 79 10/16/23 10:21 Resp 16 10/16/23 10:21 BP 163/90 10/16/23 09:15 Pulse Ox 97 10/16/23 10:21 O2 Del Method Nasal Cannula 10/16/23 10:21 O2 Flow Rate 2 10/16/23 10:21 10/15/23 10/16/23 10/16/23 22:59 06:59 14:59 Intake Total 400 / 700 50 / 750 218 / 218 Output Total 2100 / 2850 Balance -1700 / -2150 50 / -2100 218 / 218 Weight last 48 hrs Weight 109 kg Weight 110.223 kg Physical Exam 2 Narrative: General: Alert oriented x 3, answers questions appropriately. Head: craniotomy scar present on left side Cardiovascular: Irregularly irregular, rate controlled this morning left greater than right 1+ edema in lower extremities. Lungs: Breath sounds are slightly diminished at bases, no use of accessory muscles, no crackles or wheezes. Skin: No jaundice. No rashes. Abdomen: Hypoactive bowel sounds, abdomen soft, nontender, no guarding present.. Extremities: No cyanosis or clubbing. Neurological: Moves all 4 extremities. Data 10/16/23 04:44 10/16/23 04:44 A&P Assessment and plan (1) Seizure: New onset seizure x 4-5 episodes prior to admission. Recent history of intracranial hemorrhage postcraniotomy. Neurology recommendations appreciated. Continue with Keppra 1 g BID. Switch to oral today' Seizure precautions. CT head on admission negative for any acute abnormality. Check thyroid panel as recently TSH is 0.01 with mildly elevated free T4. Neurology on board. (2) SDH (subdural hematoma): Underwent surgery on 09/25/2023 Was discharged from acute care hospital on 10/11 Continue therapy Continue helmet, outpatient neurosurgery follow-up Will need replaced in postacute care when medically ready (3) Atrial fibrillation: Heart rate stable for now. Holding home dose of amiodarone and Cardizem at this time Not on anticoagulation given recent subdural hematoma. Telemetry. Sinus pause seen, 7-10 secs Consult cardiology. Sick sinus syndrome. Patient going for pacemaker today. Overnight did have episodes of asystole and CODE AVINASH was called overhead. ROSC was achieved. Currently patient has a transvenous pacemaker in place. Consult CT surgery for placement of pacemaker. Pt s/p pacemaker. Qualifiers: Atrial fibrillation type: unspecified Qualified Code(s): I48.91 - Unspecified atrial fibrillation (4) Abnormal urinalysis: Urinalysis concerning for possible UTI. Leukoesterase 2+. Follow-up with urine culture. Continue with empiric ceftriaxone for now. (5) CHF (congestive heart failure), NYHA class III: Chronic heart failure with borderline ejection fraction of 45 to 50% Compensated on exam Continue with home medications. Continue lasix orally. Qualifiers: Congestive heart failure type: unspecified Qualified Code(s): I50.9 - Heart failure, unspecified (6) Essential hypertension: Goal blood pressure less than 140/90 mmHg. Current blood pressure is acceptable Continue with home medications. (7) Chronic kidney disease: Chronic kidney disease, appears to be around stage III A3 B Avoid nephrotoxins, renally dose medications Monitor BMP daily. Qualifiers: Chronic kidney disease stage: unspecified stage Qualified Code(s): N 18.9 - Chronic kidney disease, unspecified (8) Anemia: Suspect postop anemia following his prolonged hospitalization outside hospital No evidence of bleeding Continue to monitor hemoglobin daily. Check iron panel. Qualifiers: Anemia type: unspecified type Qualified Code(s): D64.9 - Anemia, unspecified (9) Sick sinus syndrome: (10) Cardiac asystole: (11) Signs of return of spontaneous circulation: (12) Temporary transvenous cardiac pacemaker present: (13) Sinus pause: (14) Ileus: Plan DVT prophylaxis: SCD CODE STATUS: Full code NPO except medications. Speech therapy and evaluation and advance diet accordingly. 10/16/2023 - Stop IV amiodarone at this time for atrial fibrillation with RVR. _ Cardizem 30 q6h orally ? S/p pacemaker. CTS on board, recs appreciated. - KUB done this AM shows ileus. Will place NG tube - CT head done, no new mass effect. 1. Status post evacuation of acute LEFT subdural hematoma described on 09/25/2023. 2. No new acute blood products. Decrease in the subdural hematoma with a more chronic component of the subdural hematoma remaining on the LEFT. 3. Less mass effect upon the midline structures. There is still a small amount of cerebral edema but improving. 4. Large LEFT frontal craniotomy is unremarkable. ? Has been seizure-free. Will check Keppra levels today. Neurology on board. Continue Keppra 1000 BID ? Continue to monitor in ICU on telemetry overnight. ? Creatinine improved 1.6 today. replete magnesium hold oral meds, switch to IV amio drip restart, hold oral amio, Place NG tube Check Ct ABd pelvis Full code Attestations 2 Medical Necessity Statement*: requires continued hospitalization development of ileus Diagnoses Seizure R56.9 SDH (subdural hematoma) S06.5XAA Atrial fibrillation, unspecified type I48.91 Atrial fibrillation type: unspecified Abnormal urinalysis R82.90 Congestive heart failure, NYHA class 3, unspecified congestive heart failure type I50.9 Congestive heart failure type: unspecified Essential hypertension I10 Chronic kidney disease, unspecified CKD stage N18.9 Chronic kidney disease stage: unspecified stage Anemia, unspecified type D64.9 Anemia type: unspecified type Sick sinus syndrome I49.5 Cardiac asystole I46.9 Signs of return of spontaneous circulation Temporary transvenous cardiac pacemaker present Z95.0 Sinus pause I45.5 Ileus K56.7
--- NOTE | 2023-10-16 13:06 | CT_ITS ---
WS: [id number] CT ABDOMEN AND PELVIS NONCONTRAST HISTORY: nausea vomitting TECHNIQUE: Imaging performed through the abdomen and pelvis. Coronal and sagittal reformats are submi tted. All CT scans at [facility] use at least one of these dose optimization techniques: auto mated exposure control; mA and/or kV adjustment per patient size (includes targeted exams where dose is matched to clinical indication); or iterative reconstruction. DLP: 1130.78 mGy.cm COMPARISON: 10/31/2017 Lower thorax: Mild enlargement of the heart. Air bronchograms with dense consolidation at the RIGHT l lavern base. Pneumonia versus atelectasis. Very tiny small bilateral pleural effusions, RIGHT greater th an LEFT. Liver: Normal size liver. No mass or bile duct dilatation. Gallbladder: Prior cholecystectomy. Pancreas: Normal size and attenuation. Normal pancreatic duct. No pancreatitis or mass. Spleen: Normal. Adrenal glands: Normal. No mass. Right kidney: Mild perinephric stranding. No obstruction. Left kidney: Mild perinephric stranding with no obstruction. Aorta: Heavy calcification of the aorta. No aneurysm. IVC filter in good position. Mild perinephric stranding extends along the paracolic gutters. There is a very tiny amount of fat st randing in the retroperitoneum at the level of the aortic bifurcation. Very small amount of presacral fluid. GI tract: No obstruction. Abdominal wall: Moderate size ventral abdominal wall hernia contains fat only. Pelvis: Dalton catheter in a nondistended urinary bladder. There is mild soft tissue anasarca. Osseous structures: Unremarkable. IMPRESSION: 1. Very mild soft tissue anasarca in the abdomen and pelvis and through the mesentery. 2. No GI tract obstruction. 3. Prior cholecystectomy. 4. IVC filter. 5. Dense consolidation of the RIGHT lung base. Pneumonia versus atelectasis. Very small bilateral pl eural effusions.
[2023-10-16] MEDS: magnesium sulfate premix 2 GM/50 ML PIGGYBACK IV (13:34)
[2023-10-16] MEDS: insulin lispro 100 unit/1 mL SUBCUT (13:34)
[2023-10-16 14:41] LABS: Troponin 5 2HR 113.6 ng/L (0-15); Troponin 5 2HR Delta 0.6 ABS# (0-10)
--- NOTE | 2023-10-16 14:52 | PC.SOCIAL ---
IMM updated Updated pt & daughter on IMM. No questions voiced. Provided pt a copy. Initialed, dated, & timed copy in chart.
--- NOTE | 2023-10-16 15:29 | PC.OT ---
OT EVAL ATTEMPTED; HOLD FOR TOMORROW PER NURSING REQUEST DUE TO NG TUBE PLACEMENT
--- NOTE | 2023-10-16 15:43 | XR_ITS ---
WS: [id number] Portable AP upright chest, 10/16/2023 Clinical Data: NG tube Comparison: Portable chest, 10/15/2023 Findings: The nasogastric tube appears to be within the esophagus and ends in the fundus of the stoma ch. There are bilateral patchy opacities in both lungs which may represent pulmonary vascular congest ion or pneumonia. The heart is enlarged. There are midline sternotomy sutures. There is a cardiac pac emaker with the wire ending in the ventricle. There is a vena caval filter in position. Impression: 1. Satisfactory placement of nasogastric tube. 2. Cardiomegaly. 3. Diffuse bilateral pulmonary opacities worse than yesterday.
[2023-10-16 16:59] LABS: Glucose Point of Care 111 mg/dL (70-110)
--- NOTE | 2023-10-16 17:39 | P.PN_ITS ---
Subjective 2 Subjective: Patient had pacemaker placement. Has been having nausea Vitals/I&O/Wt Last Vital Signs Temp 98.9 F 10/16/23 16:15 Pulse 89 10/16/23 16:39 Resp 16 10/16/23 16:15 BP 155/76 10/16/23 16:15 Pulse Ox 95 10/16/23 16:15 O2 Del Method Nasal Cannula 10/16/23 16:15 O2 Flow Rate 2 10/16/23 10:21 10/16/23 10/16/23 10/16/23 06:59 14:59 22:59 Intake Total 50 / 750 768 / 768 Output Total 900 / 900 Balance 50 / -2100 -132 / -132 Weight last 48 hrs Weight 240 lb 4.862 oz Weight 243 lb Physical Exam 2 Narrative: GENERAL: Patient is sleepy [] NECK: No jugular vein distension. [] HEENT: No cyanosis. No icterus. No pallor. [] HEART: Irregularly irregular, S1 and S2. No murmur, rub or gallop. [] LUNGS: Clear to auscultate bilaterally. [] CENTRAL NERVOUS SYSTEM: Grossly nonfocal. [] EXTREMITIES: Lower extremities with 1+ edema bilaterally. Data 10/16/23 04:44 10/16/23 17:19 A&P Assessment and plan (1) Atrial fibrillation: Qualifiers: Atrial fibrillation type: unspecified Qualified Code(s): I48.91 - Unspecified atrial fibrillation (2) Essential hypertension: (3) CHF (congestive heart failure), NYHA class III: Qualifiers: Congestive heart failure type: unspecified Qualified Code(s): I50.9 - Heart failure, unspecified (4) Seizure: (5) SDH (subdural hematoma): (6) Sinus pause: Plan Patient is stable from cardiac standpoint. Can uptitrate rate controlling agents as bp tolerates Thank you for involving us with care of this patient. Please call with questions. Attestations 2 Medical Necessity Statement*: Care expected to cross 2 midnights. Coding Level of Care Code Acute Code for Chg Fwd Diagnoses Atrial fibrillation, unspecified type I48.91 Atrial fibrillation type: unspecified Essential hypertension I10 Congestive heart failure, NYHA class 3, unspecified congestive heart failure type I50.9 Congestive heart failure type: unspecified Seizure R56.9 SDH (subdural hematoma) S06.5XAA Sinus pause I45.5
[2023-10-16] MEDS: levETIRAcetam 1,000 mg/10 mL UDC 1000 MG PO (17:52)
[2023-10-16 17:54] LABS: Troponin 5 6HR Delta 3.7 ng/L (0-12)
[2023-10-16 17:59] LABS: Troponin 5 6HR 116.7 ng/L (0-15)
[2023-10-16] MEDS: FUROsemide 10 mg/mL SDV 4mL 40 MG IVP (18:12)
[2023-10-16] MEDS: piperacillin-tazobactam 3.375 GM in sodium chloride 0.9% (plus) 50 ML IV (18:12)
[2023-10-16 18:39] LABS: Anion Gap 16.2 (5-19); Blood Urea Nitrogen 23 mg/dL (8-23); Calcium 8.4 mg/dL (8.5-10.5); Carbon Dioxide 23 mmol/L (22-29); Chloride 103 mmol/L (98-107); Glucose 111 mg/dL (65-115); Magnesium 1.8 mg/dL (1.7-2.3); Osmolality Calculated 288 mOsm/kg (285-295); Potassium 5.2 mmol/L (3.5-5.1); Sodium 137 mmol/L (136-145)
[2023-10-16] MEDS: dilTIAZem 60 mg Tablet PO (18:39)
[2023-10-16 18:46] LABS: Procalcitonin 0.19 ng/mL (0-0.5)
--- NOTE | 2023-10-16 19:44 | CTR_ITS ---
PROCEDURE INFORMATION: Exam: CT Neck Without Contrast Exam date and time: 10/16/2023 8:35 PM Age: 73 years old Clinical indication: Other: N/v; Additional info: Nausea/vomiting TECHNIQUE: Imaging protocol: Computed tomography of the neck without contrast. Radiation optimization: All CT scans at this facility use at least one of these dose optimization techniques: automated exposure control; mA and/or kV adjustment per patient size (includes targeted exams where dose is matched to clinical indication); or iterative reconstruction. COMPARISON: [place] [id number] 06/22/2023 11:16 AM RADIATION DOSE METRICS: Total DLP (mGy-cm): 253.86 FINDINGS: Tubes, catheters and devices: Enteric tube tip seen in the esophagus extending inferiorly off the field of view. Mastoid air cells: Left mastoid air cell opacifications may reflect an infectious or inflammatory process. Paranasal sinuses: Left maxillary sinus and ethmoid sinus partial opacification. Pharynx: Left vallecula appears partially effaced with soft tissue density, please correlate clinically and consider direct visualization. Larynx: Unremarkable. Epiglottis is normal. Prevertebral and retropharyngeal spaces: Unremarkable. Salivary glands: Normal. Glands are normal in size. Thyroid: Right thyroid lobe diffusely enlarged measuring up to at least 5.9 cm, consider further evaluation with thyroid ultrasound. Lymph nodes: Unremarkable. No lymphadenopathy. Trachea: Visualized trachea is unremarkable. Lungs: Unremarkable as visualized. Pleural spaces: Right large and small to moderate left pleural effusions somewhat visualized in the apical lung mcleod. Bones/joints: Multilevel degenerative disc space disease and productive degenerative endplate changes throughout the spine. Soft tissues: Unremarkable. No significant soft tissue swelling. CT/CT neck wo con [id number] IMPRESSION: 1. Left maxillary sinus and ethmoid sinus partial opacification. 2. Enteric tube tip seen in the esophagus extending inferiorly off the field of view. 3. Left vallecula appears partially effaced with soft tissue density, please correlate clinically and consider direct visualization. 4. Right thyroid lobe diffusely enlarged measuring up to at least 5.9 cm, consider further evaluation with thyroid ultrasound. 5. Right large and small to moderate left pleural effusions somewhat visualized in the apical lung mcleod. 6. Left mastoid air cell opacifications may reflect an infectious or inflammatory process. 7. Multilevel degenerative disc space disease and productive degenerative endplate changes throughout the spine.
--- NOTE | 2023-10-16 19:46 | PM.TDS ---
Transfer Summary Providers Date of Admission: 10/12/23 18:14 Date of Discharge/Transfer: 10/16/23 Attending Provider at Admission: Blanco Kaye MD Attending Provider at Transfer: Wendie Cm MD Primary Care Provider: Luana Villegas MD Transfer Plans: Anticipated date of transfer: 10/16/23. Diagnoses at Discharge Discharge Diagnosis (1) Atrial fibrillation: Status: Acute Qualifiers: Atrial fibrillation type: unspecified Qualified Code(s): I48.91 - Unspecified atrial fibrillation (2) Essential hypertension: Status: Acute (3) CHF (congestive heart failure), NYHA class III: Status: Acute Qualifiers: Congestive heart failure type: unspecified Qualified Code(s): I50.9 - Heart failure, unspecified (4) Seizure: Status: Acute (5) SDH (subdural hematoma): Status: Acute (6) Sinus pause: Status: Acute Reason for Visit Reason for Visit SEIZURES Brief History: As per Dr. KAYE, Jonathan Baker is a 73 year old male with a past medical history significant for congestive heart failure, hypothyroidism, peripheral arterial disease, type 2 diabetes mellitus, peripheral neuropathy, chronic atrial fibrillation, and recent acute subdural hematoma with intraparenchymal hemorrhage producing midline shift on 09/25/2023 requiring craniotomy who presented emergency department with seizure activity. Daughter is bedside and supportive. She provides most the history. Patient's been hospitalized at an outside hospital for the aforementioned brain surgery. He had initially presented to the [facility] ED on 09/25/2023 and was shipped for neurosurgical intervention. He reportedly underwent neurosurgery the same day. She reports he went into cardiac arrest during surgery was coded 4 times. He has been on Keppra since 09/21/2023 for seizure prophylaxis. Daughter reports prior to today he had not shown any seizure-like activity. He has no history of seizure disorder. He was reportedly discharged yesterday to [facility]. Daughter noted seizure-like activity earlier this morning. He had recurrent episodes with a total of about 4 episodes prior to arriving to the emergency department. Another seizure was witnessed by the ED provider. He was given Ativan, subsequently developed lethargic. Patient unable to provide further history due to her lethargic state from being postictal and medication side effects from Ativan. Daughter reports he had made great progress postoperatively. He has been progressed to regular diet. He is just recently ambulated with physical therapy. Memory seems to be improving. He is currently wearing a helmet. He has follow-up scheduled neurosurgery for consideration of reimplantation of skull bone. Hospital Course Hospital Course Patient was admitted for recurrent seizures. He was seen by neurology. His home dose keppra was 500 bid and it was increased to 1000 bid. He has been seizure free since admission. During hospital stay pt had a sinus pause upto 10 sec. Amiodarone and oral cardizem were placed on hold and patient was being observed. Cardiology was consulted. Patient had an episode of afib with RVR and small dose of metoprolol was given. Before medicine was fully administered patient went into asystole and code blue was called. Following is the event note by night hospitalist: Atrial fibrillation with RVR symptomatic with chest pain earlier this evening despite being on amiodarone drip heart rates 140s. Maintaining blood pressure. Discussed with cardiology, discussed with nursing staff, slow metoprolo push 5mg given but not completed. About 6s pause encountered so metoprolol discontinued after about 4ml. HR back to AFib w RVR with slightly better rates. Monitored with pacing pads applied and crash cart in the room. Slightly later again with noted pause/asystole, unresponsive, Code Blue initiated and CPR administered for about 3 minutes, subsequently awake, alert, following directions with ROSC, maintaining saturation on 6-7L NC, maintaining blood pressure, but HR fluctuating between AFib w RVR and bradycardia/pauses. Discussed w cardiology, ER physician at bedside, discussed w family. Cardiology making preparations for transvenous pacing, family agreeable and agreeable. Transcutaneous pacing started, 60BPM capturing at 8 MA. He subsequently had 3 more episodes of loss of pulse requiring brief (less than a minute) chest compressions. Family agreeable with ER physician placing CVC as well. Per discussion w family he had required transient pacing with temporary pacemaker at the time of neurosurgery, which could later be removed. He had cardiac arrest x4 at the time. Patient underwent pacemaker placement next day with CT surgeron. Operative note as follows: Brief History: Mr. Baker is a 73-year-old gentleman with atrial fibrillation and profound sinus pauses up to 10 seconds who suffered several syncopal episodes resulting in a traumatic head injury and subdural hematoma requiring craniotomy. During his early convalescence developed sinus pauses at an outside facility requiring temporary pacing. He separately presents here again with substantial sinus pauses up to 10 seconds requiring placement of a temporary pacer. Dr. Dennison requested permanent pacing. Details and risk the procedure were carefully discussed with patient and family. Proper consents were signed. Procedure: Procedure: Mr. Allen taken to the OR suite and placed in the supine position over a shoulder roll. He received conscious sedation with continuous anesthesia monitoring by. His entire chest was sterilely prepped and draped. Appropriate timeout was completed and confirmed all operative members present. 1% lidocaine was infiltrated in the left subclavicular region. While in Trendelenburg position, utilizing modified seldinger technique, a guidewire was placed in the left subclavian vein. This was confirmed in position by fluoroscopy. Next, after infiltration with lidocaine, a subcutaneous pocket was created beginning from the exit point of the guidewire and extending laterally and inferiorly. Cautery was utilized to create the pocket just above the pectoralis musculature. Hemostasis was confirmed. An antibiotic-soaked sponge was placed in the wound. A dilator and tear-away sheath was placed over the guidewire and advanced under fluoroscopy. Guidewire and dilator were removed. Next using a combination of curved and straight stylettes, the right ventricular lead was placed in position by fluoroscopy. The distal screw was extended. Interrogation was then performed confirming appropriate parameters. The tear-away sheath was then removed and the ventricular lead was sewn to the floor of the subcutaneous pocket. Pacing generator was brought into the field, and after confirmation of hemostasis in the subcutaneous pocket, the lead was connected to the generator with appropriate capture. The entire system was interrogated by fluoroscopy. Lead and generator were secured in the pocket. Sponge and needle count was correct. The wound was then closed in 2 layers of 3-0 Vicryl suture. Skin was reapproximated in a subcuticular manner with 4-0 Monocryl suture. A pressure dressing was applied. The left arm was placed in a sling. The patient had equal breath sounds bilaterally. He was then transferred to the ICU, where chest x-ray is currently pending. I did genetic counsellor with the family at the completion of the procedure. Following are the specifics of this system: Right ventricular lead is 58 cm and model [id number]. Serial number [id number] Ventricular lead had sensing of 5.4 mV with an impedance of 785 ohms. Threshold was 0.9 V Pacing mode is set to VVI with a lower rate of 60 Med[employer]onic generator: Model # [id number] Serial #[id number] Pacemaker was placed 10/15/2023. Since night of patient has been experiencing nausea and vomitting. He has been given repeated doses of zofran with no improvement therefore reglan IV, phenergan has been given. Subsequently ativan IV given as well with mild improvement. He continues to have dry heaving and retching. KUB done which showed possible ileus. Patient did have a BM today. Subsequently CT abd pelvis done which showed: IMPRESSION: 1. Very mild soft tissue anasarca in the abdomen and pelvis and through the mesentery. 2. No GI tract obstruction. 3. Prior cholecystectomy. 4. IVC filter. 5. Dense consolidation of the RIGHT lung base. Pneumonia versus atelectasis. Very small bilateral pleural effusions. NG tube was placed and placed on LIWS. Seen by general surgery as well. Surgeon does not believe cause of patient's nausea is a GI issue at this time. There may be possibility of intracranial pressure variation causing his symptoms. Disussed with surgeon who recommends to have neurosurgical input at this time. CT head was done this afternoon which showed the following: IMPRESSION: 1. Status post evacuation of acute LEFT subdural hematoma described on 09/25/2023. 2. No new acute blood products. Decrease in the subdural hematoma with a more chronic component of the subdural hematoma remaining on the LEFT. 3. Less mass effect upon the midline structures. There is still a small amount of cerebral edema but improving. 4. Large LEFT frontal craniotomy is unremarkable. Discussed with Dr. Flynn (neurosurgeon at [facility]) is willing to see patient in consultation once transferred. Discussed with grain cleaner and transfer operator Branden who has discussed case with ICU attending who will possibly be accepting patient once CT neck is also complete. We will order CT neck at this time.. Currently patient/s vitals are: 115/78, HR 120's, Atrial fibrillation with RVR, sat 95% on NC 2 L. The above document to serve has transfer summary when and if patient accepted for transfer.. Physical Exam Narrative: General: Alert oriented x 3, answers questions appropriately. Head: craniotomy scar present on left side Cardiovascular: Irregularly irregular, hr 120'S, left greater than right 1+ edema in lower extremities. Lungs: Breath sounds are slightly diminished at bases, no use of accessory muscles, no crackles or wheezes. Abdomen: Hypoactive bowel sounds, abdomen soft, nontender, no guarding present.. Extremities: No cyanosis or clubbing. Neurological: Moves all 4 extremities. No focal deficits TS Data Studies Completed and Pending Pending at discharge Category Date Time Status CT neck wo con [id number] Stat Cat Scan 10/16/23 19:44 Ordered CTA head neck [CT angio headneck* [id number]] Stat Cat Scan 10/16/23 19:34 Stop Req COVID [SARS Covid-2 Antigen] Routine Lab 10/16/23 18:14 Uncollected Complete Blood Count w/Auto AM LABS Lab 10/17/23 04:00 Ordered Comprehensive Metabolic Panel AM LABS Lab 10/17/23 04:00 Ordered KEPPRA [Levetiracetam Immunoassy] Routine Lab 10/16/23 13:30 Received Magnesium AM LABS Lab 10/17/23 04:00 Ordered PRBC [Leukocyte Reduced RBC] Routine Lab 10/15/23 11:20 Results Sputum Culture and Gram Stain Stat Lab 10/16/23 17:47 Uncollected Type and Screen Routine Lab 10/15/23 11:20 Results Completed Studies During Hospitalization Category Date Time Status CT abdomen pelvis wo con [id number] Stat Cat Scan 10/16/23 13:[address] head wo con* [id number] Routine Cat Scan 10/16/23 10:[address] head wo con* [id number] Stat Cat Scan 10/12/23 16:30 Completed BRIDGE RIGGER request for service Routine Exams 10/15/23 23:56 Completed CXRP [XR chest 1V portable [id number]] Routine Exams 10/15/23 19:44 Completed CXRP [XR chest 1V portable [id number]] Routine Exams 10/16/23 15:43 Completed XR KUB portable [id number] Stat Exams 10/16/23 11:14 Completed XR chest 1V portable [id number] Stat Exams 10/12/23 16:26 Completed CV. echo complete* [id number] Stat Ultrasound 10/13/23 18:25 Completed Laboratory Last Values WBC 7.82 10^3/uL (3.29-11.43) 10/16/23 04:44 RBC 2.91 10^6/uL (3.85-5.65) L 10/16/23 04:44 Hgb 8.80 g/dL (11.27-16.99) L 10/16/23 04:44 Hct 28.4 % (37-53) L 10/16/23 04:44 MCV 97.6 fl (82-101) 10/16/23 04:44 MCH 30.2 pg (27-33) 10/16/23 04:44 MCHC 31.0 g/dL (30-55) 10/16/23 04:44 RDW 16.3 % (12.1-15.1) H 10/16/23 04:44 Plt Count 263 10^3/cmm (157-399) 10/16/23 04:44 MPV 10.2 fL (7.4-10.4) 10/16/23 04:44 Neut % (Auto) 73.0 % 10/16/23 04:44 Lymph % (Auto) 11.3 % 10/16/23 04:44 [place] % (Auto) 11.3 % 10/16/23 04:44 Eos % (Auto) 3.3 % 10/16/23 04:44 Baso % (Auto) 0.5 % 10/16/23 04:44 Neut # (Auto) 5.71 10^3/uL (1.8-7.7) 10/16/23 04:44 Lymph # (Auto) 0.9 10^3/uL (0.8-4.8) 10/16/23 04:44 [place] # (Auto) 0.9 10^3/uL (0.2-0.9) 10/16/23 04:44 Eos # (Auto) 0.3 10^3/uL (0.0-0.8) 10/16/23 04:44 Baso # (Auto) 0.0 10^3/uL (0.0-0.1) 10/16/23 04:44 Nucleated RBC % (auto) 0 % 10/16/23 04:44 Nucleated RBCs # 0.0 /100WBC 10/16/23 04:44 Sodium 137 mmol/L (136-145) 10/16/23 17:19 Potassium 5.2 mmol/L (3.5-5.1) H 10/16/23 17:19 Chloride 103 mmol/L (98-107) 10/16/23 17:19 Carbon Dioxide 23 mmol/L (22-29) 10/16/23 17:19 Anion Gap 16.2 (5-19) 10/16/23 17:19 BUN 23 mg/dL (8-23) 10/16/23 17:19 Creatinine 1.4 mg/dL (0.7-1.2) H 10/16/23 17:19 GFR Calculation Not Reportable 10/16/23 17:19 Glucose 111 mg/dL (65-115) 10/16/23 17:19 POC Glucose 111 mg/dL (70-110) H 10/16/23 16:55 Calculated Osmolality 288 mOsm/kg (285-295) 10/16/23 17:19 Lactic Acid 1.4 mmol/L (0.5-2.2) 10/12/23 16:23 Calcium 8.4 mg/dL (8.5-10.5) L 10/16/23 17:19 Phosphorus Cancelled 10/13/23 17:24 Magnesium 1.8 mg/dL (1.7-2.3) 10/16/23 17:19 Iron 39 ug/dL (59-158) L 10/13/23 02:45 TIBC 218 mcg/dl 10/13/23 02:45 % Saturation 17.8 % (20-50) L 10/13/23 02:45 Unsat Iron Binding 179 ug/dL (112-347) 10/13/23 02:45 Total Bilirubin 0.2 mg/dL (0.15-1.2) 10/16/23 04:44 AST 34 U/L (0-40) 10/16/23 04:44 ALT 34 U/L (0-41) 10/16/23 04:44 Alkaline Phosphatase 171 U/L (40-130) H 10/16/23 04:44 Creatine Kinase 124 U/L (39-308) 10/12/23 16:23 Troponin T 5th Gen ng/L 113 ng/L (0-15) H* 10/16/23 11:30 Troponin T Baseline 110 ng/L (0-15) H* 10/13/23 17:24 Troponin T 120 Minute 113.6 ng/L (0-15) H 10/16/23 13:30 Delta Troponin T 0.6 ABS# (0-10) 10/16/23 13:30 Troponin T Hi Sens 6Hr 116.7 ng/L (0-15) H 10/16/23 17:19 Troponin T Hi Sens 6Hr Delta 3.7 ng/L (0-12) 10/16/23 17:19 Total Protein 5.9 g/dL (6.6-8.7) L 10/16/23 04:44 Albumin 2.7 g/dL (3.5-5.2) L 10/16/23 04:44 Globulin 3.2 g/dL (1.3-4.6) 10/16/23 04:44 Procalcitonin 0.19 ng/mL (0-0.5) 10/16/23 17:19 TSH 2.07 uIU/mL (0.27-4.20) 10/13/23 02:45 Free T4 0.95 ng/dL (0.82-1.77) 10/13/23 02:45 Urine Color Yellow (Yellow) 10/12/23 16:23 Urine Appearance Clear (CLEAR) 10/12/23 16:23 Urine pH 5 (5-7) 10/12/23 16:23 Ur Specific [place] 1.020 (1.005-1.030) 10/12/23 16:23 Urine Protein Neg (Negative) 10/12/23 16:23 Urine Glucose (UA) Norm (Normal) 10/12/23 16:23 Urine Ketones Negative (Negative) 10/12/23 16:23 Urine Blood Neg (Negative) 10/12/23 16:23 Urine Nitrate Negative (Negative) 10/12/23 16:23 Urine Bilirubin Neg (Negative) 10/12/23 16:23 Urine Urobilinogen Norm mg/dL (Negative) 10/12/23 16:23 Ur Leukocyte Esterase 2+ (Negative) H 10/12/23 16:23 Urine RBC None /hpf (0-2) 10/12/23 16:23 Urine WBC 25-40 /hpf (0-5) H 10/12/23 16:23 Ur Squamous Epith Cells 0-4 /hpf (0-5) H 10/12/23 16:23 Amorphous Sediment Not Reportable 10/12/23 16:23 Urine Bacteria 1+ /hpf (NONE) H 10/12/23 16:23 Urine Opiates Screen Negative ng/mL (Negative) 10/12/23 16:28 Ur Barbiturates Screen Negative ng/mL (Negative) 10/12/23 16:28 Ur Phencyclidine Scrn Negative ng/mL (Negative) 10/12/23 16:28 Ur Amphetamines Screen Negative ng/mL (Negative) 10/12/23 16:28 U Benzodiazepines Scrn Negative ng/mL (Negative) 10/12/23 16:28 Urine Cocaine Screen Negative ng/mL (Negative) 10/12/23 16:28 U Marijuana (THC) Screen Negative ng/mL (Negative) 10/12/23 16:28 Blood Type O Positive 10/15/23 11:20 Rho(D) Type Rh positive 10/15/23 11:20 Antibody Screen Negative 10/15/23 11:20 Crossmatch See Detail 10/15/23 11:20 Recent Clincial Data Last Vital Signs Temp 98.9 F 10/16/23 16:15 Pulse 89 10/16/23 16:39 Resp 16 10/16/23 16:15 BP 155/76 10/16/23 16:15 Pulse Ox 95 10/16/23 16:15 O2 Del Method Nasal Cannula 10/16/23 16:15 O2 Flow Rate 2 10/16/23 10:21 Vital Signs Temp Pulse Resp BP Pulse Ox O2 Del Method O2 Flow Rate 10/16/23 16:39 89 10/16/23 16:15 98.9 F 86 16 155/76 95 Nasal Cannula 10/16/23 16:00 157/78 95 Nasal Cannula 10/16/23 15:45 86 13 159/88 95 Nasal Cannula 10/16/23 15:30 86 16 153/67 95 Nasal Cannula 10/16/23 15:15 87 13 155/79 96 Nasal Cannula 10/16/23 15:00 145/74 10/16/23 14:45 90 10 L 140/73 96 Nasal Cannula 10/16/23 14:30 91 16 139/70 95 Nasal Cannula 10/16/23 14:15 90 21 H 134/65 97 Nasal Cannula 10/16/23 14:00 91 13 131/67 97 Nasal Cannula 10/16/23 13:45 84 16 133/70 95 Nasal Cannula 10/16/23 13:30 85 15 137/65 95 Nasal Cannula 10/16/23 13:15 87 13 149/77 97 Nasal Cannula 10/16/23 13:00 84 14 145/78 96 Nasal Cannula 10/16/23 12:45 87 19 H 145/84 97 Nasal Cannula 10/16/23 12:30 84 10 L 157/76 97 Nasal Cannula 10/16/23 12:15 146/75 10/16/23 12:00 87 16 141/86 97 Nasal Cannula 10/16/23 11:45 84 11 L 147/78 96 Nasal Cannula 10/16/23 11:30 84 19 H 140/69 94 Nasal Cannula 10/16/23 11:15 82 14 138/70 96 Nasal Cannula 10/16/23 11:00 88 20 H 142/72 95 Nasal Cannula 10/16/23 10:45 85 19 H 135/71 96 Nasal Cannula 10/16/23 10:30 86 14 133/70 96 Nasal Cannula 10/16/23 10:21 79 16 97 Nasal Cannula 2 10/16/23 10:15 88 7 L 128/64 93 Nasal Cannula 10/16/23 10:00 86 16 137/73 96 Nasal Cannula 10/16/23 09:45 86 19 H 154/80 95 Nasal Cannula 10/16/23 09:30 85 1 L 170/82 96 Nasal Cannula 10/16/23 09:15 87 20 H 163/90 94 Nasal Cannula 10/16/23 09:00 84 15 168/85 96 Nasal Cannula 10/16/23 08:45 84 166/84 97 Nasal Cannula 10/16/23 08:30 80 12 158/94 97 Nasal Cannula 10/16/23 08:15 83 18 161/81 97 Nasal Cannula 10/16/23 08:00 82 14 159/85 98 Nasal Cannula Intake & Output/Weight 10/14/23 10/15/23 10/16/23 10/17/23 06:59 06:59 06:59 06:59 Intake Total 250 / 250 1740 / 1740 750 / 750 768 / 768 Output Total 2950 / 2950 3350 / 3350 2850 / 2850 900 / 900 Balance -2700 / -2700 -1610 / -1610 -2100 / -2100 -132 / -132 Weight 110.677 kg 110.223 kg 109 kg Vitals Last Vital Signs Temp 98.9 F 10/16/23 16:15 Pulse 89 10/16/23 16:39 Resp 16 10/16/23 16:15 BP 155/76 10/16/23 16:15 Pulse Ox 95 10/16/23 16:15 O2 Del Method Nasal Cannula 10/16/23 16:15 O2 Flow Rate 2 10/16/23 10:21 TS Medications Medications Acetaminophen (Acetaminophen 325 Mg Tablet) 650 mg PO Q6H PRN PRN Reason: Mild/Mod Pain Or Temp >/= 101 Last Admin: 10/13/23 08:11 Dose: 650 mg Al Hydrox/Mg Hydrox/Simethicone (Jovv-Fuu-Vffepulki-Tee 30 Ml Udc) 30 ml PO Q4H PRN PRN Reason: INDIGESTION Albuterol Sulfate (Albuterol 2.5 Mg/3 Ml Neb) 2.5 mg INHALATION Q6H PRN PRN Reason: shortness of breath or wheezing Allopurinol (Allopurinol 100 Mg Tablet) 150 mg PO DAILY [facility] Last Admin: 10/16/23 08:46 Dose: 150 mg Amiodarone HCl (Amiodarone 200 Mg Tablet) 200 mg PO BID [facility] Last Admin: 10/16/23 17:51 Dose: 200 mg Atorvastatin Calcium (Atorvastatin 40 Mg Tablet) 80 mg PO BEDTIME [facility] Last Admin: 10/15/23 21:15 Dose: 80 mg Bisacodyl (Bisacodyl 10 Mg Supp) 10 mg KS Q6H PRN PRN Reason: Constipation (Use 5th) Bisacodyl (Bisacodyl 5 Mg Tablet) 5 mg PO Q6H PRN PRN Reason: Constipation (Use 2nd) Bismuth Subsalicylate (Bismuth Subsalicylate 240 Ml Btl) 30 ml PO PRN PRN PRN Reason: DIARRHEA Budesonide (Budesonide 0.5 Mg/2 Ml Neb) 0.5 mg INHALATION BID.RESPIRATORY PRN PRN Reason: Shortness Of Breath Last Admin: 10/13/23 07:34 Dose: 0.5 mg Calcitriol (Calcitriol 0.25 Mcg Capsule) 0.25 mcg PO QAM [facility] Last Admin: 10/16/23 05:44 Dose: 0.25 mcg Chlorhexidine Gluconate (Chlorhexidine Gluconate 4% Btl 118 Ml) 1 applic TOPICAL DAILY [facility] Last Admin: 10/16/23 09:13 Dose: 1 applic Diltiazem HCl (Diltiazem 60 Mg Tablet) 60 mg PO Q6H [facility] Last Admin: 10/16/23 18:39 Dose: 60 mg Docusate Sodium (Docusate Sodium 100 Mg Capsule) 200 mg PO BID [facility] Last Admin: 10/16/23 17:52 Dose: 200 mg Ezetimibe (Ezetimibe 10 Mg Tablet) 10 mg PO DAILY [facility] Last Admin: 10/16/23 08:46 Dose: 10 mg Famotidine (Famotidine 20 Mg Tablet) 20 mg PO DAILY [facility] Last Admin: 10/16/23 08:46 Dose: 20 mg Folic Acid (Folic Acid 1 Mg Tablet) 1 mg PO DAILY [facility] Last Admin: 10/16/23 08:47 Dose: 1 mg Gabapentin (Gabapentin 300 Mg Capsule) 600 mg PO BID [facility] Last Admin: 10/16/23 17:52 Dose: 600 mg Guaifenesin (Guaifenesin 600 Mg Tablet) 600 mg PO BID [facility] Last Admin: 10/16/23 17:52 Dose: 600 mg Dextrose (D5w) 500 mls @ 0 mls/hr IV ONCE PRN; Protocol PRN Reason: Adult Acute Hypoglycemia Prot Dextrose (D10w) 125 mls @ 750 mls/hr IV PRN PRN; Protocol PRN Reason: Adult Acute Hypoglycemia Nursing Protocol Dextrose (D10w) 250 mls @ 1,000 mls/hr IV PRN PRN; Protocol PRN Reason: Adult Acute Hypoglycemia Nursing Protocol Amiodarone HCl/Dextrose (Nexterone) 360 mg in 200 mls @ 0 mls/hr IV .Q0M [facility]; Protocol Last Titration: 10/15/23 21:23 Dose: Infused Piperacillin Sod/Tazobactam (Sod 3.375 gm/ Sodium Chloride) 50 mls @ 12.5 mls/hr IV Q8H [facility]; Protocol Last Admin: 10/16/23 18:12 Dose: 12.5 mls/hr Insulin Glargine (Insulin Glargine 100 Units/1 Ml) 24 unit SUBCUT BEDTIME [facility] Last Admin: 10/15/23 21:15 Dose: 24 unit Insulin Human Lispro (Insulin Lispro 100 Unit/1 Ml) 0 unit SUBCUT WM&BEDTIME [facility]; Protocol Last Admin: 10/16/23 17:06 Dose: Not Given Insulin Human Lispro (Insulin Lispro 100 Unit/1 Ml) 10 unit SUBCUT TIDWM [facility] Last Admin: 10/16/23 12:42 Dose: Not Given Lactulose (Lactulose Oral Liq 20 Gm/30 Ml Udc) 20 gm PO Q6H PRN PRN Reason: Constipation (Use 3rd) Levetiracetam (Levetiracetam 1,000 Mg/10 Ml Udc) 1,000 mg PO BID [facility] Last Admin: 10/16/23 17:52 Dose: 1,000 mg Lisinopril (Lisinopril 10 Mg Tablet) 10 mg PO DAILY [facility] Last Admin: 10/16/23 08:46 Dose: 10 mg Magnesium Hydroxide (Magnesium Hydroxide 30 Ml Udc) 45 ml PO DAILY PRN PRN Reason: Constipation (use 4th) Metoclopramide HCl (Metoclopramide 5 Mg/Ml Sdv 2 Ml) 10 mg IVP ONCE PRN PRN Reason: NAUSEA AND VOMITING Last Admin: 10/16/23 10:39 Dose: 10 mg Metoclopramide HCl (Metoclopramide Oral Liquid 5 Mg/5 Ml (Ml)) 10 mg PO Q6H PRN PRN Reason: NAUSEA AND VOMITING Non-Formulary Medication (Sennosides) 5 ml PO DAILY PRN PRN Reason: Constipation Gjuwy-4-Gfcw Ethyl Esters ([place]-3 Fatty Acids 1,000 Mg Capsule) 1,000 mg PO BID [facility] Last Admin: 10/16/23 17:52 Dose: 1,000 mg Ondansetron HCl (Ondansetron 2 Mg/Ml Sdv 2 Ml) 4 mg IVP Q8H PRN PRN Reason: vomiting, or N/V if npo Last Admin: 10/16/23 09:11 Dose: 4 mg Paroxetine HCl (Paroxetine 20 Mg Tablet) 40 mg PO DAILY [facility] Last Admin: 10/16/23 08:47 Dose: 40 mg Phenol (Phenol Oral [place] 177 Ml) 1 spray MUCOUS MEM Q4H PRN PRN Reason: sore throat Polyethylene Glycol (Polyethylene Glycol 3350 Pkt 17 Gm) 17 gm PO DAILY PRN PRN Reason: Constipation Sodium Phosphate ([place]leet Enema 133 Ml Enema) 118 ml KS DAILY PRN PRN Reason: Constipation Tamsulosin HCl (Tamsulosin 0.4 Mg Capsule) 0.4 mg PO DAILY [facility] Last Admin: 10/16/23 08:46 Dose: 0.4 mg Discontinued Medications Albuterol Sulfate (Albuterol 2.5 Mg/3 Ml Neb) 2.5 mg INHALATION Q4H.RESPIRATORY PRN PRN Reason: SHORTNESS OF BREATH Amiodarone HCl (Amiodarone 200 Mg Tablet) 200 mg PO BID [facility] Last Admin: 10/13/23 08:13 Dose: 200 mg Cefazolin Sodium (Cefazolin 1,000 Mg Sdv) Confirm Administered Dose 1,000 mg .ROUTE .STK-MED ONE Stop: 10/15/23 16:32 Cefazolin Sodium (Cefazolin 1,000 Mg Sdv) 1,000 mg IRRIGATION ONCE ONE; Protocol Stop: 10/15/23 17:47 Last Admin: 10/15/23 17:47 Dose: 1,000 mg Cetirizine HCl (Cetirizine 10 Mg Tablet) 10 mg PO DAILY [facility] Last Admin: 10/16/23 08:46 Dose: 10 mg Diltiazem HCl (Diltiazem 30 Mg Tablet) 90 mg PO QID [facility] Last Admin: 10/13/23 13:40 Dose: 90 mg Diltiazem HCl (Diltiazem 30 Mg Tablet) 30 mg PO Q6H [facility] Last Admin: 10/16/23 15:33 Dose: 30 mg Diphenhydramine HCl (Diphenhydramine 25 Mg Capsule) 25 mg PO BEDTIME PRN PRN Reason: SLEEP Docusate Sodium (Docusate Sodium 100 Mg Capsule) 100 mg PO BID PRN PRN Reason: Constipation (Use 1st) Fentanyl (Fentanyl 50 Mcg/Ml Inj 2ml) Confirm Administered Dose 100 mcg .ROUTE .STK-MED ONE Stop: 10/14/23 23:59 Fentanyl (Fentanyl 50 Mcg/Ml Inj 2ml) Confirm Administered Dose 100 mcg .ROUTE .STK-MED ONE Stop: 10/15/23 16:29 Furosemide (Furosemide 20 Mg Tablet) 20 mg PO DAILY@0800 [facility] Last Admin: 10/13/23 08:12 Dose: 20 mg Furosemide (Furosemide 10 Mg/Ml Sdv 4ml) 40 mg IVP ONCE ONE Stop: 10/16/23 17:48 Last Admin: 10/16/23 18:12 Dose: 40 mg Guaifenesin (Guaifenesin 100 Mg/5 Ml Udc 10 Ml) 200 mg PO Q4H PRN PRN Reason: COUGH Heparin Sodium (Porcine) (Heparin 5,000 Unit/Ml Inj 1 Ml) Confirm Administered Dose 5,000 unit .ROUTE .STK-MED ONE Stop: 10/14/23 23:59 Levetiracetam (Keppra) 1,000 mg in 100 mls @ 400 mls/hr IV ONCE ONE Stop: 10/12/23 16:48 Last Infusion: 10/12/23 16:59 Dose: Infused Levetiracetam (Keppra) 1,000 mg in 100 mls @ 400 mls/hr IV ONCE ONE Stop: 10/12/23 16:48 Levetiracetam (Keppra) 1,000 mg in 100 mls @ 400 mls/hr IV Q12H [facility] Last Infusion: 10/16/23 09:15 Dose: Infused Ceftriaxone Sodium 1,000 mg/ (Sodium Chloride) 50 mls @ 100 mls/hr IV Q24H [facility]; Protocol Last Infusion: 10/16/23 01:17 Dose: Infused Amiodarone HCl/Dextrose (Nexterone) 360 mg in 200 mls @ 0 mls/hr IV .Q0M [place]; Protocol Last Admin: 10/14/23 18:22 Dose: 1 mg/min, 33.33 mls/hr Epinephrine HCl 2.5 mg/ Sodium (Chloride) 252.5 mls @ 0 mls/hr IV .Q0M [place]; Protocol Lidocaine HCl (Xylocaine) Confirm Administered Dose 20 mls @ as directed .ROUTE .STK-MED ONE Stop: 10/15/23 00:00 Sodium Chloride (Sodium Chloride 0.9%) Confirm Administered Dose 1,000 mls @ as directed .ROUTE .STK-MED ONE Stop: 10/15/23 00:34 Lidocaine HCl (Xylocaine) Confirm Administered Dose 20 mls @ as directed .ROUTE .STK-MED ONE Stop: 10/15/23 00:45 Amiodarone HCl/Dextrose (Nexterone) 150 mg in 100 mls @ 400 mls/hr IV ONCE ONE Stop: 10/15/23 05:03 Last Admin: 10/15/23 06:52 Dose: Not Given Cefazolin Sodium 2,000 mg/ (Sodium Chloride) 50 mls @ 100 mls/hr IV [employer] ONE; Protocol Stop: 10/15/23 08:42 Last Admin: 10/15/23 19:40 Dose: Not Given Lidocaine HCl (Xylocaine) Confirm Administered Dose 10 mls @ as directed .ROUTE .STK-[facility] ONE Stop: 10/15/23 16:32 Sodium Chloride (Sodium Chloride 0.9%) Confirm Administered Dose 10 mls @ as directed .ROUTE .[facility] ONE Stop: 10/15/23 16:32 Last Admin: 10/15/23 19:41 Dose: Not Given Cefazolin Sodium 2,000 mg/ (Sodium Chloride) 50 mls @ 100 mls/hr IV [employer] ONE; Protocol Stop: 10/15/23 17:14 Last Infusion: 10/15/23 17:21 Dose: Infused Lidocaine HCl (Xylocaine) Confirm Administered Dose 10 mls @ as directed .ROUTE .[facility] ONE Stop: 10/15/23 17:37 Sodium Chloride (Sodium Chloride 0.9%) 500 mls @ 999 mls/hr IV .Q31M ONE Stop: 10/16/23 11:40 Last Infusion: 10/16/23 13:45 Dose: Infused Levetiracetam (Keppra) 1,000 mg in 100 mls @ 400 mls/hr IV Q12H [place] Magnesium Sulfate (Magnesium Sulfate Premix) 2 gm in 50 mls @ 50 mls/hr IV ONCE ONE Stop: 10/16/23 14:04 Last Infusion: 10/16/23 14:41 Dose: Infused Lidocaine HCl (Lidocaine 1% Inj 10 Ml (Per Ml)) 20 ml XX ONCE ONE Stop: 10/15/23 17:48 Last Admin: 10/15/23 17:49 Dose: 20 ml Lorazepam (Lorazepam 2 Mg/Ml Inj 1 Ml) 2 mg IVP NOW ONE Stop: 10/12/23 16:35 Last Admin: 10/12/23 16:39 Dose: Not Given Lorazepam (Lorazepam 2 Mg/Ml Inj 10 Ml Mdv) 2 mg IVP ONCE ONE Stop: 10/12/23 16:34 Last Admin: 10/12/23 16:45 Dose: 2 mg Lorazepam (Lorazepam 2 Mg/Ml Inj 10 Ml Mdv) Confirm Administered Dose 4 mg .ROUTE .STK-MED ONE Stop: 10/12/23 16:42 Last Admin: 10/12/23 16:58 Dose: Not Given Lorazepam (Lorazepam 2 Mg/Ml Inj 10 Ml Mdv) 0.5 mg IVP ONCE ONE Stop: 10/16/23 11:36 Last Admin: 10/16/23 11:42 Dose: 0.5 mg Magnesium Hydroxide (Magnesium Hydroxide 30 Ml Udc) 15 ml PO DAILY PRN PRN Reason: Constipation Metoprolol Tartrate (Metoprolol Tartrate 1 Mg/1 Ml Sdv 5 Ml) 5 mg IVP ONCE ONE Stop: 10/14/23 18:11 Last Admin: 10/14/23 19:15 Dose: Not Given Metoprolol Tartrate (Metoprolol Tartrate 1 Mg/1 Ml Sdv 5 Ml) 5 mg IVP ONCE ONE Stop: 10/14/23 22:45 Last Admin: 10/14/23 23:02 Dose: 5 mg Midazolam HCl (Midazolam 1 Mg/Ml Inj 2 Ml) Confirm Administered Dose 2 mg .ROUTE .STK-MED ONE Stop: 10/14/23 23:59 Morphine Sulfate (Morphine 4 Mg/Ml Sdv 1 Ml) 2 mg IVP Q1H PRN PRN Reason: SEVERE PAIN Mupirocin (Mupirocin Oint 22 Gm) 1 applic NOSTRIL-B BID ONE Stop: 10/15/23 08:14 Last Admin: 10/15/23 13:15 Dose: 1 applic Phenylephrine HCl (Phenylephrine 10 Mg/Ml Sdv 1 Ml) Confirm Administered Dose 10 mg .ROUTE .STK-MED ONE Stop: 10/15/23 16:32 Phenylephrine HCl (Phenylephrine 10 Mg/Ml Sdv 1 Ml) Confirm Administered Dose 10 mg .ROUTE .STK-MED ONE Stop: 10/15/23 16:32 Promethazine HCl (Promethazine 25 Mg Supp) 25 mg [place] Q6H PRN PRN Reason: NAUSEA AND VOMITING Promethazine HCl (Promethazine 25 Mg/Ml Sdv 1 Ml) 12.5 mg IM ONCE STA Stop: 10/16/23 11:09 Last Admin: 10/16/23 11:13 Dose: 12.5 mg Propofol (Propofol 10 Mg/Ml Sdv 20 Ml) Confirm Administered Dose 200 mg .ROUTE .STK-MED ONE Stop: 10/15/23 17:43 Propofol (Propofol 10 Mg/Ml Sdv 20 Ml) Confirm Administered Dose 400 mg .ROUTE .STK-MED ONE Stop: 10/15/23 17:44 Sodium Chloride (Sodium Chloride 0.9% 100 Ml Bag) 50 ml IV PRN PRN PRN Reason: Blood transfusion prime and flush Stop: 10/16/23 10:17 Allergies No Known Allergies Allergy (Verified 10/07/23 11:15) Home Medications ezetimibe 10 mg tablet 10 mg PO DAILY@10/14/19 [History Confirmed 10/13/23] allopurinol 100 mg tablet 150 mg PO DAILY@07/20/22 [History Confirmed 10/13/23] cetirizine 10 mg tablet (Zyrtec) 10 mg PO DAILY@07/20/22 [History Confirmed 10/13/23] cholecalciferol (vitamin D3) 25 mcg (1,000 unit) tablet (Vitamin D3) 25 mcg PO DAILY@07/20/22 [History Confirmed 10/13/23] docusate sodium 100 mg capsule (Colace) 200 mg PO BID PRN Constipation 07/20/22 [History Confirmed 10/13/23] gabapentin 600 mg tablet 600 mg PO BID@07/20/22 [History Confirmed 10/13/23] paroxetine HCl 40 mg tablet (Paxil) 40 mg PO DAILY@07/20/22 [History Confirmed 10/13/23] tamsulosin 0.4 mg capsule (Flomax) 0.4 mg PO DAILY@07/20/22 [History Confirmed 10/13/23] calcitriol 0.25 mcg capsule 0.25 mcg PO DAILY@10/10/22 [History Confirmed 10/13/23] omega-3 fatty acids 1,000 mg capsule 1,000 mg PO BID@03/07/23 [History Confirmed 10/13/23] rosuvastatin 40 mg tablet 40 mg PO BEDTIME #30 tabs 06/28/23 [Rx Confirmed 10/13/23] budesonide 0.5 mg/2 mL suspension for nebulization 0.5 mg inhalation BID.RESPIRATORY PRN Shortness Of Breath 07/08/23 [History Confirmed 10/13/23] acetaminophen 325 mg tablet 650 mg PO QID 10/13/23 [History Confirmed 10/13/23] albuterol sulfate 2.5 mg/3 mL (0.083 %) solution for nebulization 2.5 mg inhalation Q6H PRN shortness of breath or wheezing 10/13/23 [History Confirmed 10/13/23] amiodarone 200 mg tablet 200 mg PO BID@07,10/13/23 [History Confirmed 10/13/23] bacitracin-polymyxin B topical ointment See Rx Instructions .Route .COMPLEX 10/13/23 [History Confirmed 10/13/23] bisacodyl 10 mg rectal suppository 10 mg KS DAILY PRN Constipation 10/13/23 [History Confirmed 10/13/23] diltiazem HCl 90 mg tablet 90 mg PO QID 10/13/23 [History Confirmed 10/13/23] famotidine 20 mg tablet 20 mg PO DAILY@10/13/23 [History Confirmed 10/13/23] folic acid 1 mg tablet 1 mg PO DAILY@10/13/23 [History Confirmed 10/13/23] furosemide 20 mg tablet 20 mg PO DAILY@ fluid overload 10/13/23 [History Confirmed 10/13/23] guaifenesin 600 mg tablet, extended release 12 hr (Mucinex) 600 mg PO BID@,10/13/23 [History Confirmed 10/13/23] heparin (porcine) 5,000 unit/mL injection solution 5,000 unit SUBCUT TID@06,14,10/13/23 [History Confirmed 10/13/23] insulin glargine 100 unit/mL (3 mL) subcutaneous pen (Lantus Solostar U-100 Insulin) 30 unit SUBCUT BEDTIME 10/13/23 [History Confirmed 10/13/23] insulin lispro 100 unit/mL subcutaneous pen 15 unit SUBCUT TIDWM 10/13/23 [History Confirmed 10/13/23] insulin lispro 100 unit/mL subcutaneous solution (Humalog U-100 Insulin) See Rx Instructions .Route .COMPLEX 10/13/23 [History Confirmed 10/13/23] levetiracetam 500 mg tablet (Keppra) 500 mg PO BID@07,10/13/23 [History Confirmed 10/13/23] lidocaine 4 % topical cream 1 applic topical DAILY@10/13/23 [History Confirmed 10/13/23] lisinopril 10 mg tablet 10 mg PO DAILY@07 10/13/23 [History Confirmed 10/13/23] magnesium hydroxide 400 mg/5 mL oral suspension (Milk of Magnesia) 15 ml PO DAILY@07 Constipation 10/13/23 [History Confirmed 10/13/23] magnesium hydroxide 400 mg/5 mL oral suspension (Milk of Magnesia) 30 ml PO DAILY PRN Constipation 10/13/23 [History Confirmed 10/13/23] phenol 1.5 %-glycerin 33 % mucosal spray (Chloraseptic Max Sore Throat) See Rx Instructions .Route .COMPLEX 10/13/23 [History Confirmed 10/13/23] polyethylene glycol 3350 17 gram oral powder packet (Miralax) 17 g PO DAILY PRN Constipation 10/13/23 [History Confirmed 10/13/23] sennosides 8.8 mg/5 mL oral syrup 5 ml PO DAILY PRN Constipation 10/13/23 [History Confirmed 10/13/23] sodium phosphates 19 gram-7 gram/118 mL enema (Fleet Enema) 118 ml [place] DAILY PRN Constipation 10/13/23 [History Confirmed 10/13/23] ubiquinone 1 cap PO DAILY@07 10/13/23 [History Confirmed 10/13/23] Discharge Plan Discharge Patient Disposition: Home Condition: Stable Prescriptions: No Action ezetimibe 10 mg tablet 10 mg PO DAILY@07 gabapentin 600 mg Tablet 600 mg PO BID@07,19 cetirizine [Zyrtec] 10 mg Tablet 10 mg PO DAILY@07 allopurinol 100 mg Tablet 150 mg PO DAILY@07 tamsulosin [Flomax] 0.4 mg Capsule 0.4 mg PO DAILY@07 docusate sodium [Colace] 100 mg Capsule 200 mg PO BID PRN (Reason: Constipation) paroxetine HCl [Paxil] 40 mg Tablet 40 mg PO DAILY@07 cholecalciferol (vitamin D3) [Vitamin D3] 25 mcg (1,000 unit) Tablet 25 mcg PO DAILY@07 omega-3 fatty acids 1,000 mg capsule 1,000 mg PO BID@07,19 calcitriol 0.25 mcg Capsule 0.25 mcg PO DAILY@07 rosuvastatin 40 mg Tablet 40 mg PO BEDTIME Qty: 30 0RF budesonide 0.5 mg/2 mL suspension for nebulization 0.5 mg inhalation BID.RESPIRATORY PRN (Reason: Shortness Of Breath) amiodarone 200 mg Tablet 200 mg PO BID@07,19 famotidine 20 mg Tablet 20 mg PO DAILY@07 magnesium hydroxide [Milk of Magnesia] 400 mg/5 mL Suspension 15 ml PO DAILY@07 lisinopril 10 mg Tablet 10 mg PO DAILY@07 folic acid 1 mg Tablet 1 mg PO DAILY@07 furosemide 20 mg tablet 20 mg PO DAILY@07 acetaminophen 325 mg Tablet 650 mg PO QID Rx Instructions: @09:00,12:00,17:00,21:00 levetiracetam [Keppra] 500 mg Tablet 500 mg PO BID@,19 diltiazem HCl 90 mg Tablet 90 mg PO QID insulin lispro [Humalog U-100 Insulin] 100 unit/mL Solution See Rx Instructions .ROUTE .COMPLEX Rx Instructions: inject per sliding scale if 150-199= 3 units 200-249= 6 units 250-299= 9 units 300-349= 12 units 350-399= 15 units subcutaneously before meals and at bedtime heparin (porcine) 5,000 unit/mL Solution 5,000 unit SUBCUT TID@,, ubiquinone capsule 1 cap PO DAILY@07 albuterol sulfate 2.5 mg /3 mL (0.083 %) solution for nebulization 2.5 mg inhalation Q6H PRN (Reason: shortness of breath or wheezing) guaifenesin [Mucinex] 600 mg Tablet Extended Release 12hr 600 mg PO BID@, lidocaine 4 % Cream 1 applic topical DAILY@ polyethylene glycol 3350 [Miralax] 17 gram Powder In Packet 17 g PO DAILY PRN (Reason: Constipation) bisacodyl 10 mg Suppository 10 mg [place] DAILY PRN (Reason: Constipation) bacitracin-polymyxin B Ointment See Rx Instructions .ROUTE .COMPLEX Rx Instructions: apply to affected area topically every 24 hours as needed Chloraseptic Max Sore Throat 1.5-33 % [place],Non-Aerosol See Rx Instructions .ROUTE .COMPLEX Rx Instructions: one application po every 4 hours as needed for pain/sore throat sennosides 8.8 mg/5 mL Syrup 5 ml PO DAILY PRN (Reason: Constipation) Milk of Magnesia 400 mg/5 mL Suspension 30 ml PO DAILY PRN (Reason: Constipation) Fleet Enema 19-7 gram/118 mL Enema 118 ml KS DAILY PRN (Reason: Constipation) insulin lispro 100 unit/mL Insulin Pen 15 unit SUBCUT TIDWM Lantus Solostar U-100 Insulin 100 unit/mL (3 mL) Insulin Pen 30 unit SUBCUT BEDTIME Referrals: [facility] [Provider Group] - 1 week (Pacemaker clinic) Luana Villegas MD [Primary Care Provider] - Patient Instructions: Pacemaker (DC), Opioid Safety Activity Restrictions/Additional Instructions: May remove bandage in 2 days May begin daily showers in 3 days Dry incision carefully after showers. May re-cover if desired to prevent irritation from clothing. No swimming or tub baths x 2 weeks No ointments on incision Report drainage, redness, heat, fever, increased pain, or swelling to clinic Do not raise left arm above eye level for 1 week No heavy lifting more than 10 pounds x 2 weeks Will follow-up in cardiology pacemaker clinic in 1 week Transfer Attestations Time Spent in Transfer Care: greater than 30 min Quality Metrics Clinical Quality Measures [ No reported AMI, CVA or VTE this stay] Coding Level of Care Code Acute Code for Chg Fwd Diagnoses Atrial fibrillation, unspecified type I48.91 Atrial fibrillation type: unspecified Essential hypertension I10 Congestive heart failure, NYHA class 3, unspecified congestive heart failure type I50.9 Congestive heart failure type: unspecified Seizure R56.9 SDH (subdural hematoma) S06.5XAA Sinus pause I45.5
[2023-10-16 21:13] LABS: Glucose Point of Care 143 mg/dL (70-110)
[2023-10-16 21:34] LABS: SARS Covid-2 Antigen negative (Negative)
[2023-10-16] MEDS: atorvastatin 40 mg Tablet 80 MG PO (22:04)
[2023-10-17] VITALS (7 sets, daily range): BP systolic 96–113; BP diastolic 58–69; PULSE 96–97; RESP 15–22; TEMP 36.7; O2SAT 91–94
[2023-10-17] MEDS: dilTIAZem 60 mg Tablet PO (00:46)
--- NOTE | 2023-10-17 01:17 | PC.NURSE ---
Patient Transferred to [facility] Cardiac Care Unit bed 48 for higher level of care. Report called to Karen Casepr RN. Patient left ICU at 0111 via gurney by EMS staff.
[2023-10-17 10:00] LABS: Levetiracetam Immunoassy 48.3 mcg/mL (6.0-46.0)
== END 2023-10-17 01:11 | disposition short-term general hospital (02) | DRG 40 ==
LOC: ER 16:45 → MEDSURG 19:38 → ICU 10-14 06:29 → MEDSURG 10-15 08:47
PROVIDERS: Internal Medicine; Student in an Organized Health Care Education/Training Program; Thoracic Surgery (Cardiothoracic Vascular Surgery); Admitting Provider Internal Medicine; Emergency Provider Family Medicine; PCP Family Medicine; Visit Provider Internal Medicine
PROC: 5A1223Z Performance of Cardiac Pacing, Continuous (ICD-10-PCS; principal; 2023-10-15)
PROC: 0JH604Z Insertion of Pacemaker, Single Chamber into Chest Subcutaneous Tissue and Fascia, Open Approach (ICD-10-PCS; principal; 2023-10-15 16:00)
DX: R56.9 Unspecified convulsions (principal); I46.9 Cardiac arrest, cause unspecified; I13.0 Hypertensive heart and chronic kidney disease with heart failure and stage 1 through stage 4 chronic kidney disease, or unspecified chronic kidney disease; I48.11 Longstanding persistent atrial fibrillation; K56.7 Ileus, unspecified; D62 Acute posthemorrhagic anemia; I50.9 Heart failure, unspecified; N18.32 Chronic kidney disease, stage 3b; E11.22 Type 2 diabetes mellitus with diabetic chronic kidney disease; E11.51 Type 2 diabetes mellitus with diabetic peripheral angiopathy without gangrene; E11.40 Type 2 diabetes mellitus with diabetic neuropathy, unspecified; B35.1 Tinea unguium; R91.8 Other nonspecific abnormal finding of lung field; I25.10 Atherosclerotic heart disease of native coronary artery without angina pectoris; E78.5 Hyperlipidemia, unspecified; M10.9 Gout, unspecified; R82.90 Unspecified abnormal findings in urine; I49.5 Sick sinus syndrome; D63.1 Anemia in chronic kidney disease; I45.5 Other specified heart block; S06.5XAD Traumatic subdural hemorrhage with loss of consciousness status unknown, subsequent encounter; I25.2 Old myocardial infarction; Z11.52 Encounter for screening for COVID-19; Z79.82 Long term (current) use of aspirin; Z79.4 Long term (current) use of insulin; Z95.1 Presence of aortocoronary bypass graft; Z87.891 Personal history of nicotine dependence
CPT/HCPCS: 33210; 36415; 36416; 70450; 70490; 71045; 74018; 74176; 76000; 80048; 80053; 80069; 80177; 80306; 81001; 82550; 82962; 83540; 83550; 83605; 83735; 84145; 84439; 84443; 84484; 85025; 86850; 86900; 86920; 87086; 87426; 92507; 92526; 92610; 93005; 93306; 94640; 96372; 96376; A4222; C1769; C1779; C1894; C1898; J0283; J0690; J0696; J1644; J1815; J1940; J1953; J2060; J2250; J2371; J2405; J2543; J2550; J2704; J2765; J3010; J3475; J3490; J7030; J7040; J7626